=== PATIENT | female | born 1990 | race Caucasian/White ===

== ENCOUNTER → 2021-02-01 | Outpatient (CLI) | payer OTHER ==
[2021-02-01 13:53] LABS: BASO # 0.1 10^3/uL (0.0-0.2); BASO % 0.4 % (0.0-1.0); EOS # 0.1 10^3/uL (0.0-0.5); EOS % 0.6 % (0.0-3.0); HEMOGLOBIN 13.1 g/dl (12.0-15.5); LYMPH # 2.1 10^3/uL (1.5-5.0); LYMPH % 14.3 % (24.0-44.0); MEAN CORPUSCULAR HEMOGLOBIN 30.9 pg (27.0-33.0); MEAN CORPUSCULAR HGB CONC 33.6 g/dl (32.0-36.5); MONO # 0.5 10^3/uL (0.0-0.8); MONO % 3.8 % (2.0-8.0); NEUTROPHILS # 11.5 10^3/uL (1.5-8.5); NEUTROPHILS % 80.5 % (36.0-66.0); PLATELET COUNT, AUTOMATED 297 10^3/uL (150-450); RED BLOOD COUNT 4.24 10^6/uL (4.00-5.40); WHITE BLOOD COUNT 14.3 10^3/uL (4.0-10.0)
[2021-02-01 13:55] LABS: APPEARANCE, URINE HAZY (CLEAR); BACTERIA, URINE AUTO NEGATIVE (NEGATIVE); BILIRUBIN, URINE AUTO NEGATIVE (NEGATIVE); BLOOD, URINE BLOOD 1+ (NEGATIVE); COLOR, URINE YELLOW (YELLOW); GLUCOSE, URINE (UA) AUTO NEGATIVE (NEGATIVE); KETONE, URINE AUTO NEGATIVE (NEGATIVE); LEUKOCYTE ESTERASE, URINE AUTO 3+ (NEGATIVE); MUCUS, URINE SMALL (NEGATIVE); NITRITE, URINE AUTO NEGATIVE (NEGATIVE); PROTEIN, URINE AUTO 2+ mg/dL (NEGATIVE); RBC, URINE AUTO 17 /HPF (0-3); SPECIFIC GRAVITY URINE AUTO 1.015 (1.002-1.035); SQUAMOUS EPITHELIAL CELL UR AU 5 /HPF (0-6); UROBILINOGEN, URINE AUTO 0.2 mg/dL (0.0-2.0); WBC, URINE AUTO 42 /HPF (0-3)
[2021-02-01 14:19] LABS: ALT/SGPT 30 U/L (12-78); BILIRUBIN,TOTAL 0.2 MG/DL (0.2-1.0); BLOOD UREA NITROGEN 16 MG/DL (7-18); CALCIUM LEVEL 8.9 MG/DL (8.5-10.1); CARBON DIOXIDE LEVEL 26 MEQ/L (21-32); CHLORIDE LEVEL 106 MEQ/L (98-107); CREATININE FOR GFR 0.68 MG/DL (0.55-1.30); GLOMERULAR FILTRATION RATE > 60.0 (>60); GLUCOSE, FASTING 93 MG/DL (70-100); POTASSIUM SERUM 4.3 MEQ/L (3.5-5.1); SODIUM LEVEL 138 MEQ/L (136-145); TOTAL PROTEIN 6.8 GM/DL (6.4-8.2)
[2021-02-01 14:41] LABS: HEPATITIS B SURFACE ANTIGEN NEGATIVE (NEGATIVE)
[2021-02-01 15:08] LABS: HEPATITIS B CORE ANTIBODY IGM NEGATIVE (NEGATIVE)
[2021-02-01 15:11] LABS: HEPATITIS A ANTIBODY IGM NEGATIVE (NEGATIVE)
[2021-02-01 15:14] LABS: HEPATITIS C VIRUS ABY INDEX > 11.0 INDEX (<0.8)
== END ==
LOC: M LAB 13:20
PROVIDERS: ATTEND Physician Assistant Medical
DX: Z02.2 Encounter for examination for admission to residential institution (principal)

== ENCOUNTER → 2021-02-10 | Outpatient (CLI) | payer OTHER ==
[2021-02-10 15:09] LABS: HEPATITIS B SURFACE ANTIBODY POSITIVE (POSITIVE); HEPATITIS B SURFACE ANTIGEN NEGATIVE (NEGATIVE)
[2021-02-15 14:09] LABS: HEPATITIS A IgG TOTAL Positive (Negative); HEPATITIS C QUANTITATION HCV Not Detected IU/mL (.)
== END ==
LOC: M PLALAB 09:17
PROVIDERS: ATTEND Physician Assistant Medical
DX: B15.9 Hepatitis A without hepatic coma (principal); B16.9 Acute hepatitis B without delta-agent and without hepatic coma; B18.2 Chronic viral hepatitis C

== ENCOUNTER 2021-03-18 12:28 | Emergency (ER) | payer OTHER ==
[~2021-03-18] VITALS: Ht 144.8 cm; Wt 115.7 kg
[2021-03-18 12:29] VITALS: BP 97/57
[2021-03-18] MEDS ORDERED: BUPR1FIL6 SL (15:35)
[2021-03-18 16:29] LABS: RSV AMPLIFICATION NEGATIVE (NEGATIVE)
[2021-03-18] MEDS ORDERED: CEFD1CAP8 PO (16:45)
== END 2021-03-18 17:00 | disposition home or self-care (01) ==
LOC: M ED 12:28
DX: J06.9 Acute upper respiratory infection, unspecified (principal); Z79.899 Other long term (current) drug therapy; Z88.0 Allergy status to penicillin

== ENCOUNTER 2021-03-23 20:08 | Inpatient (IN) | payer OTHER ==
[~2021-03-23] VITALS: Ht 144.8 cm; Wt 115.0 kg
[~2021-03-23 20:08] MED LIST: BUPR1FIL6 SL; CEFD1CAP8 PO
--- OUTSIDE RECORDS SUMMARY | 2021-03-23 20:14 | CCD | Continuity of Care Document ---
Author Author Jasmin HAMPTON Organization Unknown Address [address] [facility] [address] [place] [address] Phone [phone] Care Team Providers Care Extension Specialist Name Role Phone DANIAL HAMPTON AUTM [phone] Social History Type Date Description Comments Sex Unknown Results Test Acquired Date Facility Test Result H/L Range Note CBC With Differential 02/01/2021 [facility] [address] [place] [address] [phone] White Blood Count 14.3 10 High 4.0-10.0 Red Blood Count 4.24 10 Normal 4.00-5.40 Hemoglobin 13.1 g/dL Normal 12.0-15.5 Hematocrit 39.0 % Normal 36.0-47.0 Mean Corpuscular Volume 92.0 fl Normal 80.0-96.0 Mean Corpuscular Hemoglobin 30.9 pg Normal 27.0-33.0 Mean Corpuscular HGB Conc 33.6 g/dL Normal 32.0-36.5 Red Cell Distribution Width 13.0 % Normal 11.5-14.5 Platelet Count, Automated 297 10 Normal 150-450 Neutrophils % 80.5 % High 36.0-66.0 Lymph % 14.3 % Low 24.0-44.0 [place] % 3.8 % Normal 2.0-8.0 Eos % 0.6 % Normal 0.0-3.0 Baso % 0.4 % Normal 0.0-1.0 Immature Granulocyte % 0.4 % Normal 0-3.0 Nucleated Red Blood Cell % 0.0 % Normal 0-0 Neutrophils # 11.5 10 High 1.5-8.5 Lymph # 2.1 10 Normal 1.5-5.0 [place] # 0.5 10 Normal 0.0-0.8 Eos # 0.1 10 Normal 0.0-0.5 Baso # 0.1 10 Normal 0.0-0.2 Ua Routine 02/01/[address] [id number] [phone] Appearance, Urine HAZY Normal Clear Color, Urine YELLOW Normal Yellow PH,Urine 6.0 units Normal 5.0-9.0 Specific [place] Urine Auto 1.015 Normal 1.002-1.035 Protein, Urine Auto 2+ mg/dL High Negative Glucose, Urine (Ua) Auto NEGATIVE mg/dL Normal Negative Ketone, Urine Auto NEGATIVE mg/dL Normal Negative Urobilinogen, Urine Auto 0.2 mg/dL Normal 0.0-2.0 Bilirubin, Urine Auto NEGATIVE Normal Negative Nitrite, Urine Auto NEGATIVE Normal Negative Leukocyte Esterase, Urine Auto 3+ High Negative Blood, Urine Blood 1+ High Negative WBC, Urine Auto 42 /HPF High 0-3 RBC, Urine Auto 17 /HPF High 0-3 Bacteria, Urine Auto NEGATIVE Normal Negative Squamous Epithelial Cell Ur AU 5 /HPF Normal 0-6 Mucus, Urine SMALL Normal Negative Hyaline Cast, Urine Auto 0 /LPF Normal 0-1 Comprehensive Metabolic Profil 02/01/[address] [id number] [phone] Glucose, Fasting 93 mg/dL Normal 70-100 Blood Urea Nitrogen 16 mg/dL Normal 7-18 Creatinine For GFR 0.68 mg/dL Normal 0.55-1.30 Glomerular Filtration Rate > 60.0 Normal >60 1 Sodium Level 138 mEq/L Normal 136-145 Potassium Serum 4.3 mEq/L Normal 3.5-5.1 Chloride Level 106 mEq/L Normal 98-107 Carbon Dioxide Level 26 mEq/L Normal 21-32 Anion Gap 6 mEq/L Low 8-16 Calcium Level 8.9 mg/dL Normal 8.5-10.1 Ast/Sgot 16 U/L Normal 7-37 Alt/SGPT 30 U/L Normal 12-78 Alkaline Phosphatase 92 U/L Normal 45-117 Bilirubin,Total 0.2 mg/dL Normal 0.2-1.0 Total Protein 6.8 GM/DL Normal 6.4-8.2 Albumin 3.0 GM/DL Low 3.2-5.2 Albumin/Globulin Ratio 0.8 Low 1.2-2.2 Hepatitis Profile 02/01/2021 [facility] [address] [place] [address] [phone] Hepatitis C Virus Vandana Index > 11.0 INDEX High <0 .8 2 Hepatitis B Surface Antigen NEGATIVE Normal Negative Hepatitis B Core Antibody Igm NEGATIVE Normal Negative Hepatitis A Antibody Igm NEGATIVE Normal Negative Laboratory test finding 02/01/2021 [facility] [address] [place] [address] [phone] HCV Rna Marti Qualitative Negative Normal Negative 3 1 Units are mL/min/1.73 m2 Chronic Kidney Disease Staging per NKF: Stage I & II GFR >=60 Normal to Mildly Decreased Stage III GFR 30-59 Moderately Decreased Stage IV GFR 15-29 Severely Decreased Stage V GFR <15 Very Little GFR Left ESRD GFR <15 on EXPERIMENTAL OUTBOARD MOTORS MECHANIC 2 This screening test for Hepa titis C Virus was above the 1.0 cutoff index value and will be sent to reference lab Laboratory [facility], [address] [place] [address]. [place]. [address] for Hep C RNA MARTI testing to confirm or exclude active Hepatitis C Virus infection. Screening test Positive samples with high index values (>11.0) usually (95%) confirm Positive, but <5 of every 100 samples with this result might be a false positive and Hep C RNA MARTI testing will aid in patient management. 3 Negative: HCV RNA Not Detect ed Performed at: [address] [id number] Physical Chemistry Teacher: Blayne Funez MD, Phone: [phone] Procedures Date Code Description Status 01/30/2021 33642 Office/Outpatient New [facility] 30 -44 Minutes Completed Encounters Type Date Location Provider Dx Diagnosis Office Visit 01/30/2021 10:30a [facility] JUAN CARLOS Almazan F19.20 Other psychoactive substance dependence, uncomplicated M51.36 Other intervertebral disc de generation, lumbar region G47.00 Insomnia, unspecified Assessments Date Code Description Provider 01/30/2021 F19.20 Other psychoactive substance dep endence, uncomplicated JUAN CARLOS [place] 01/30/2021 M51.36 Other intervertebral disc degene ration, lumbar region JUAN CARLOS [place] 01/30/2021 G47.00 Insomnia, unspecified JUAN CARLOS [place]
--- OUTSIDE RECORDS SUMMARY | 2021-03-23 20:14 | CCD | Continuity of Care Document ---
Author Author Jasmin HAMPTON Organization Unknown Address [address] [facility] [address] [place] [address] Phone [phone] Care Team Providers Care Tripe Washer Name Role Phone DANIAL HAMPTON AUTM [phone] Social History Type Date Description Comments Sex Unknown Results Test Acquired Date Facility Test Result H/L Range Note CBC With Differential 02/01/2021 [facility] [address] [place] [address] [phone] White Blood Count 14.3 10 High 4.0-10.0 [...] 36.0-66.0 Lymph % 14.3 % Low 24.0-44.0 [place] % 3.8 % Normal 2.0-8.0 Eos % 0.6 % Normal 0.0-3.0 Baso % 0.4 % Normal 0.0-1.0 Immature Granulocyte % 0.4 % Normal 0-3.0 Nucleated Red Blood Cell % 0.0 % Normal 0-0 Neutrophils # 11.5 10 High 1.5-8.5 Lymph # 2.1 10 Normal 1.5-5.0 [place] # 0.5 10 Normal 0.0-0.8 Eos # 0.1 10 Normal 0.0-0.5 Baso # 0.1 10 Normal 0.0-0.2 Ua Routine 02/01/[address] [id number] [phone] Appearance, Urine HAZY Normal Clear Color, Urine YELLOW Normal Yellow PH,Urine 6.0 units Normal 5.0-9.0 Specific [place] Urine Auto 1.015 Normal 1.002-1.035 Protein, Urine [...] /LPF Normal 0-1 Comprehensive Metabolic Profil 02/01/[address] 0707160 [phone] Glucose, Fasting 93 mg/dL Normal 70-100 Blood [...] Ratio 0.8 Low 1.2-2.2 Hepatitis Profile 02/01/2021 [facility] [address] [place] [address] [phone] Hepatitis C Virus Vandana Index > 11.0 INDEX High <0 .8 2 Hepatitis B Surface Antigen NEGATIVE Normal Negative Hepatitis B Core Antibody Igm NEGATIVE Normal Negative Hepatitis A Antibody Igm NEGATIVE Normal Negative Laboratory test finding 02/01/2021 [facility] [address] [place] [address] [phone] HCV Rna Marti Qualitative Negative Normal Negative 3 1 Units are mL/min/1.73 m2 Chronic Kidney Disease Staging per NKF: Stage I & II GFR >=60 Normal to Mildly Decreased Stage III GFR 30-59 Moderately Decreased Stage IV GFR 15-29 Severely Decreased Stage V GFR <15 Very Little GFR Left ESRD GFR <15 on DEPLOYMENT ENGINEER 2 This screening test for Hepa titis C Virus was above the 1.0 cutoff index value and will be sent to reference lab Laboratory [facility], [address] [place] [address]. [place]. [address] for Hep C RNA MARTI testing to confirm or exclude active Hepatitis C Virus infection. Screening test Positive samples with high index values (>11.0) usually (95%) confirm Positive, but <5 of every 100 samples with this result might be a false positive and Hep C RNA MARTI testing will aid in patient management. 3 Negative: HCV RNA Not Detect ed Performed at: [address] [id number] Sap Plant Maintenance Consultant: Blayne Funez MD, Phone: [phone] Procedures Date Code Description Status 02/02/2021 82911 Office/Outpatient Established Lo w MDM 20-29 Min Completed 01/30/2021 83994 Office/Outpatient New Low MDM 30 -44 Minutes Completed Encounters Type Date Location Provider Dx Diagnosis Office Visit 02/02/2021 12:30p [facility] Ed JUAN CARLOS Almazan M75.52 Bursitis of left shoulder J30.9 Allergic rhinitis, unspecifi ed G47.00 Insomnia, unspecified Office Visit 01/30/2021 10:30a [facility] Ed JUAN CARLOS Almazan F19.20 Other psychoactive substance dependence, uncomplicated M51.36 Other intervertebral disc de generation, lumbar region G47.00 Insomnia, unspecified Assessments Date Code Description Provider 02/02/2021 M75.52 Bursitis of left shoulder JUAN CARLOS Hernandez 02/02/2021 J30.9 Allergic rhinitis, unspecified F JUAN CARLOS Sanderson 02/02/2021 G47.00 Insomnia, unspecified JUAN CARLOS [place] 01/30/2021 F19.20 Other psychoactive substance dep endence, uncomplicated JUAN CARLOS [place] 01/30/2021 M51.36 Other intervertebral disc degene ration, lumbar region JUAN CARLOS [place] 01/30/2021 G47.00 Insomnia, unspecified JUAN CARLOS [place]
--- OUTSIDE RECORDS SUMMARY | 2021-03-23 20:14 | CCD | Continuity of Care Document ---
Author Author Jasmin MEDINA Organization Unknown Address [address] [facility] [address] [place] [address] Phone [phone] Care Team Providers Care Customer Service Cashier Name Role Phone SARABJIT MEDINA AUTM [phone] Social History Type Date Description Comments Sex Unknown Results Test Acquired Date Facility Test Result H/L Range Note Laboratory test finding 02/10/2021 [facility] [address] [place], [place] [id number] [phone] Hepatitis B Surface Antigen NEGATIVE Normal Nega tive Hepatitis B Surface Antibody POSITIVE Normal Positive Hepatitis C Virus Genotype 02/10/2021 [facility] [address] [place], [place] 9583047 [phone] Hepatitis C Virus Genotype (SEE NOTE) Normal . 1 Comment For Hepc Genotype (SEE NOTE) Normal . 2 Hepatitis C Quant By PCR 02/10/2021 [facility] [address] [place], [place] 6887994 [phone] Hepatitis C Quantitation HCV Not Detected IU/mL Normal . 3 Hepatitis C log10 TNP Normal . Test Information: (SEE NOTE) Normal . 4 Laboratory test finding 02/10/2021 [facility] [address] [place] [address] [phone] Hepatitis A IgG Total Positive Abnormal Negative 5 Hepatitis C Fibrosure [id number] 02/10/2021 [facility] [address] [place], [place] 0044259 [phone] Fibrosis Score 0.02 Normal 0.00-0.21 Fibrosis Stage (SEE NOTE) Normal . 6 Necroinflam Score 0.15 Normal 0.00-0.17 Necroinflamm Grade A0-No activity Normal . Alpha 2-Macroglobulin 181 mg/dL Normal 110-276 Haptoglobin 149 mg/dL Normal 33-278 Apolipoprotein A-1 163 mg/dL Normal 116-209 Total Bilirubin <0.1 mg/dL Normal 0.0-1.2 GGT 33 IU/L Normal 0-60 Alt 40 IU/L Normal 0-40 Interpretation (SEE NOTE) Normal . 7 Fibrosis Scoring (SEE NOTE) Normal . 8 Necroinflam Scoring (SEE NOTE) Normal . 9 Limitations (SEE NOTE) Normal . 10 Comment : (SEE NOTE) Normal . 11 CBC With Differential 02/01/[address] [address] [phone] White Blood Count 14.3 10 High 4.0-10.0 [...] 36.0-66.0 Lymph % 14.3 % Low 24.0-44.0 [place] % 3.8 % Normal 2.0-8.0 Eos % 0.6 % Normal 0.0-3.0 Baso % 0.4 % Normal 0.0-1.0 Immature Granulocyte % 0.4 % Normal 0-3.0 Nucleated Red Blood Cell % 0.0 % Normal 0-0 Neutrophils # 11.5 10 High 1.5-8.5 Lymph # 2.1 10 Normal 1.5-5.0 [place] # 0.5 10 Normal 0.0-0.8 Eos # 0.1 10 Normal 0.0-0.5 Baso # 0.1 10 Normal 0.0-0.2 Ua Routine 02/01/[address] [address] [phone] Appearance, Urine HAZY Normal Clear Color, Urine YELLOW Normal Yellow PH,Urine 6.0 units Normal 5.0-9.0 Specific [place] Urine Auto 1.015 Normal 1.002-1.035 Protein, Urine [...] /LPF Normal 0-1 Comprehensive Metabolic Profil 02/01/[address] [address] [phone] Glucose, Fasting 93 mg/dL Normal 70-100 Blood Urea Nitrogen 16 mg/dL Normal 7-18 Creatinine For GFR 0.68 mg/dL Normal 0.55-1.30 Glomerular Filtration Rate > 60.0 Normal >60 1 2 Sodium Level 138 mEq/L Normal 136-145 Potassium [...] Ratio 0.8 Low 1.2-2.2 Hepatitis Profile 02/01/[address] [address] [phone] Hepatitis C Virus Vandana Index > 11.0 INDEX High <0 .8 13 Hepatitis B Surface Antigen NEGATIVE Normal Negative Hepatitis B Core Antibody Igm NEGATIVE Normal Negative Hepatitis A Antibody Igm NEGATIVE Normal Negative Laboratory test finding 02/01/2021 [place] [address] [place] [address] [phone] HCV Rna Sandra Qualitative Negative Normal Negative 14 1 Specimen has insufficient he patitis C virus RNA to obtain genotyping results. This genotyping assay should only be used for known HCV positive patients with HCV RNA levels above 1000 IU/mL. 2 . This test was developed and its performance characteristics determined by [employer]. It has not been cleared or approved by the U.S. Food and Drug Administration. . The FDA has determined that such clearance or approval is not necessary. This test is used for clinical purposes. It should not be regarded as investigational or for research. 3 HCV Not Detected 4 . The quantitative range of this assay is 15 IU/mL to 100 million IU/mL. 5 Performed at: [address] [id number] Ornamenter Hand: Blayne Funez MD, Phone: [phone] Performed at: [address] [id number] Ornamenter Hand: Bel Acuna MD, Phone: [phone] 6 F0 - No fibrosis 7 . Quantitative results of 6 biochemical tests are analyzed using a computational algorithm to provide a quantitative surrogate marker (0.0-1.0) for liver fibrosis (METAVIR F0- F4) and for necroinflammatory activity (METAVIR A0-A3). 8 . <=0.21 = Stage F0 - No fibrosis 0.21 - 0.27 = Stage F0 - F1 0.27 - 0.31 = Stage F1 - Portal fibrosis 0.31 - 0.48 = Stage F1 - F2 0.48 - 0.58 = Stage F2 - Bridging fibros is with few septa 0.58 - 0.72 = Stage F3 - Bridging fibros is with many septa 0.72 - 0.74 = Stage F3 - F4 >0.74 = Stage F4 - Cirrhosis 9 . <0.17 = Grade A0 - No Activity 0.17 - 0.29 = Grade A0 - A1 0.29 - 0.36 = Grade A1 - Minimal activit y 0.36 - 0.52 = Grade A1 - A2 0.52 - 0.60 = Grade A2 - Moderate activi ty 0.60 - 0.62 = Grade A2 - A3 >0.62 = Grade A3 - Severe activity 10 The negative predictive valu e of a Fibrotest score <0.31 (absence of clinically significant fibro sis) was 85% when compared to liver biopsy in 1,270 HCV infected patients with a 38% prevalence of significant liver fibrosis (F2, 3 or 4). The positive predictive value of a Fibro-test score >0.48 (F2, 3, 4) was 61% in that same patient cohort. HCV FibroSURE is not recommended in patients with Gilbert Disease, acute hemolysis (e.g. HCV ribavirin therapy mediated hemolysis) acute hepa-titis of the liver, extra- hepatic cholestasis, transplant patients, and/or renal insufficiency patients. Any of these clinical situations may lead to inaccurate quantitative predictions of fibrosis and necroinflammatory activity in the liver. 11 . This test was developed and its performance characteristics determined by [employer]. It has not been cleared or approved by the Food and Drug Administration. The FDA has determined that such clearance or approval is not necessary. . For questions regarding this report please contact customer service at [phone]. 12 Units are mL/min/1.73 m2 Chronic Kidney Disease Staging per NKF: Stage I & II GFR >=60 Normal to Mildly Decreased Stage III GFR 30-59 Moderately Decreased Stage IV GFR 15-29 Severely Decreased Stage V GFR <15 Very Little GFR Left ESRD GFR <15 on GEODETIC ENGINEER 13 This screening test for Hepa titis C Virus was above the 1.0 cutoff index value and will be sent to reference lab Laboratory [facility], [address] [place] [address]. [place], [place]. [address] for Hep C RNA SANDRA testing to confirm or exclude active Hepatitis C Virus infection. Screening test Positive samples with high index values (>11.0) usually (95%) confirm Positive, but <5 of every 100 samples with this result might be a false positive and Hep C RNA SANDRA testing will aid in patient management. 14 Negative: HCV RNA Not Detect ed Performed at: [address] [id number] Ornamenter Hand: Blayne Funez MD, Phone: [phone] Procedures Date Code Description Status 02/15/2021 91423 Office/Outpatient Established Lo w MDM 20-29 Min Completed 02/02/2021 62684 Office/Outpatient Established Lo w MDM 20-29 Min Completed 01/30/2021 81938 Office/Outpatient [facility] 30 -44 Minutes Completed Encounters Type Date Location Provider Dx Diagnosis Office Visit 02/15/2021 11:30a [facility] JUAN CARLOS Almazan K92.1 [place] G47.9 Sleep disorder, unspecified J30.9 Allergic rhinitis, unspecifi ed Office Visit 02/02/2021 12:30p [facility] JUAN CARLOS Almazan M75.52 Bursitis of left shoulder J30.9 Allergic rhinitis, unspecifi ed G47.00 Insomnia, unspecified Office Visit 01/30/2021 10:30a [facility] JUAN CARLOS Almazan F19.20 Other psychoactive substance dependence, uncomplicated M51.36 Other intervertebral disc de generation, lumbar region G47.00 Insomnia, unspecified Assessments Date Code Description Provider 02/15/2021 K92.1 [place] Sarabjit Iona Kaleb mayer, JUAN CARLOS 02/15/2021 G47.9 Sleep disorder, unspecified Efe christina Iona [place], [place] 02/15/2021 J30.9 Allergic rhinitis, unspecified F redericsadaf [place], [place] 02/02/2021 M75.52 Bursitis of left shoulder Albertoder leila Medina, JUAN CARLOS 02/02/2021 J30.9 Allergic rhinitis, unspecified F redericsadaf [place], [place] 02/02/2021 G47.00 Insomnia, unspecified Sarabjit Medina, JUAN CARLOS 01/30/2021 F19.20 Other psychoactive substance dep endence, uncomplicated Sarabjit [place], [place] 01/30/2021 M51.36 Other intervertebral disc degene ration, lumbar region Sarabjit [place], [place] 01/30/2021 G47.00 Insomnia, unspecified JUAN CARLOS [place] Referrals Refer to Reason for Referral Status Appt Date Brant Del Valle M.D. PATIENT WITH C/O BLOOD IN STOOL. PLEASE EVAL AND TREAT. Sent The [address], [address] [place] [address] [phone] [facility] PATIENT WITH DIFFICULT Y SLEEPING. WAKES GASPING FOR AIR. CHEST XRAY ORDERED. PLEASE EVAL , TREAT, SLEEP STUDY. Sent [address] [place] [address] [phone]
--- OUTSIDE RECORDS SUMMARY | 2021-03-23 20:14 | CCD ---
Author Author Jasmin Farley Organization [employer] Address [address] [place] [address] Care Team Providers Care Asbestos Siding Installer Name Role Phone Ambreen Farley Unavailable JohannykevinDahiana Unavailable Min Hernandez Unavailable Monika White Unavailable Functional Status No Results Mental Status No Results Assessments SatMar 16 19:25:31 EDT 2020: No Assessment Information Health Concerns No Known Health Concerns Allergies No Known Allergy Information Encounters Program Name Primary Diagnosis Admission Date/Time Discharge Date/Time BH - Short Term Crisis Respite SatNovember 02 16:10:00 EDT 2020November 06 12:00:00 EDT 2020 BH - Short Term Crisis Respite SatJun 08 00:00:00 EST 2019Jun 15 10:00:00 EST 2020 BH - Short Term Crisis Respite SatJul 29 13:30:00 EST 2020Aug 08 12:00:00 EST 2020 Intensive Support SatJun 09 10:00:00 EST 2019 BH - Short Term Crisis Respite SatAug 24 11:00:00 EDT 2020Sep 05 12:00:00 EDT 2020 BH - Short Term Crisis Respite SatApr 01 13:30:00 EDT 2019Apr 08 12:00:00 EDT 2019 BH - Short Term Crisis Respite SatDec 21 14:15:00 EDT 2020Dec 23 14:00:00 EDT 2020 Immunizations No Known Immunizations Lab Results No Known Laboratory Results Medical Equipment No Known Medical Equipment Medications No Known Medication Information Treatment Plan Goals 1-Jasmin is struggling with feel ings of stress from childhood trauma.; Established from Crisis Initial Service Plan of 06/08/2020 1-Jasmin is struggling with symp toms of stress from childhood trauma.; Established from Crisis Initial Service Plan of 06/08/2020 Problems Active Concerns* Bipolar I disorder, most recent episode (or current) unspecified* Code: [id number] * Start Date: SatApr 01 09:00:00 EDT 2019 * Text: * Mental Health and Stress Management* Code: * Start Date: SatNovember 02 00:00:00 EDT 2020 * Text: * Mental Health and Stress Management* Code: * Start Date: SatDec 21 00:00:00 EDT 2020 * Text: * Posttraumatic stress disorder* Code: [id number] * Start Date: SatApr 01 09:30:00 EDT 2019 * Text: * Peer Support Services (1:1 Peer Support)* Code: * Start Date: SatDec 21 00:00:00 EDT 2020 * Text: Resolved Concerns* Problem Peer Support Services (1:1 Peer Support)* Code: * Start Date: SatNovember 02 00:00:00 EDT 2020 * End Date: SatNov 16 00:00:00 EDT 2020 * Problem Mental Health and Stress Management* Code: * Start Date: SatNovember 02 00:00:00 EDT 2020 * End Date: SatNov 16 00:00:00 EDT 2020 * Problem Peer Support Services (1:1 Peer Support)* Code: * Start Date: SatJun 08 00:00:00 EST 2019 * End Date: SatJun 15 00:00:00 EST 2020 * Problem Peer Support Services (1:1 Peer Support)* Code: * Start Date: SatAug 24 00:00:00 EDT 2020 * End Date: SatSep 03 00:00:00 EDT 2020 * Problem Peer Support Services (1:1 Peer Support)* Code: * Start Date: SatAug 24 00:00:00 EDT 2020 * End Date: SatSep 03 00:00:00 EDT 2020 * Problem Peer Support Services (1:1 Peer Support)* Code: * Start Date: SatAug 24 00:00:00 EDT 2020 * End Date: SatSep 03 00:00:00 EDT 2020 * Problem Peer Support Services (1:1 Peer Support)* Code: * Start Date: SatAug 24 00:00:00 EDT 2020 * End Date: SatAug 24 00:00:00 EDT 2020 * Problem Mental Health and Stress Management* Code: * Start Date: SatJun 08 00:00:00 EST 2019 * End Date: SatJun 15 00:00:00 EST 2020 * Problem Mental Health and Stress Management* Code: * Start Date: SatAug 24 00:00:00 EDT 2020 * End Date: SatSep 03 00:00:00 EDT 2020 * Problem Peer Support Services (1:1 Peer Support)* Code: * Start Date: SatAug 24 00:00:00 EDT 2020 * End Date: SatSep 03 00:00:00 EDT 2020 * Problem Peer Support Services (1:1 Peer Support)* Code: * Start Date: SatAug 24 00:00:00 EDT 2020 * End Date: SatSep 03 00:00:00 EDT 2020 Procedures No Known Procedures Social History Social History Observation Description Date Sex Female SatJan 05 00:00:00 EDT 1987 Vital Signs No Known Vitals
--- OUTSIDE RECORDS SUMMARY | 2021-03-23 20:14 | CCD | Continuity of Care Document ---
Author Author Jasmin MEDINA Organization Unknown Address [address] [facility] [address] [place] [address] Phone [phone] Care Team Providers Care Special Education Teachers Name Role Phone SARABJIT MEDINA AUTM [phone] Social History Type Date Description Comments Sex Unknown Results Test Acquired Date Facility Test Result H/L Range Note Laboratory test finding 02/10/2021 [facility] [address] [place], [place] [address] [phone] Hepatitis B Surface Antigen NEGATIVE Normal Nega tive Hepatitis B Surface Antibody POSITIVE Normal Positive Hepatitis C Virus Genotype 02/10/2021 [facility] [address] [place], [place] [address] [phone] Hepatitis C Virus Genotype (SEE NOTE) Normal . 1 Comment For Hepc Genotype (SEE NOTE) Normal . 2 Hepatitis C Quant By PCR 02/10/2021 [facility] [address] [place], [place] [id number] [phone] Hepatitis C Quantitation HCV Not Detected IU/mL Normal . 3 Hepatitis C log10 TNP Normal . Test Information: (SEE NOTE) Normal . 4 Laboratory test finding 02/10/2021 [facility] [address] [place] [address] [phone] Hepatitis A IgG Total Positive Abnormal Negative 5 Hepatitis C Fibrosure [id number] 02/10/2021 [facility] [address] [place], [place] [id number] [phone] Fibrosis Score 0.02 Normal 0.00-0.21 Fibrosis Stage [...] Normal . 11 CBC With Differential 02/01/[address] [address] [phone] White Blood Count 14.3 10 High 4.0-10.0 [...] 36.0-66.0 Lymph % 14.3 % Low 24.0-44.0 Aiken % 3.8 % Normal 2.0-8.0 Eos % 0.6 % Normal 0.0-3.0 Baso % 0.4 % Normal 0.0-1.0 Immature Granulocyte % 0.4 % Normal 0-3.0 Nucleated Red Blood Cell % 0.0 % Normal 0-0 Neutrophils # 11.5 10 High 1.5-8.5 Lymph # 2.1 10 Normal 1.5-5.0 Aiken # 0.5 10 Normal 0.0-0.8 Eos # 0.1 10 Normal 0.0-0.5 Baso # 0.1 10 Normal 0.0-0.2 Ua Routine 02/01/[address] [address] [phone] Appearance, Urine HAZY Normal Clear Color, Urine YELLOW Normal Yellow PH,Urine 6.0 units Normal 5.0-9.0 Specific [place] Urine Auto 1.015 Normal 1.002-1.035 Protein, Urine [...] /LPF Normal 0-1 Comprehensive Metabolic Profil 02/01/[address] [address] [phone] Glucose, Fasting 93 mg/dL Normal 70-100 Blood [...] Ratio 0.8 Low 1.2-2.2 Hepatitis Profile 02/01/[address] [address] [phone] Hepatitis C Virus Vandana Index > 11.0 INDEX High <0 .8 13 Hepatitis B Surface Antigen NEGATIVE Normal Negative Hepatitis B Core Antibody Igm NEGATIVE Normal Negative Hepatitis A Antibody Igm NEGATIVE Normal Negative Laboratory test finding 02/01/2021 [address] [place] [address] [phone] HCV Rna Sandra Qualitative Negative Normal Negative 14 1 Specimen has insufficient he patitis C virus RNA to obtain genotyping results. This genotyping assay should only be used for known HCV positive patients with HCV RNA levels above 1000 IU/mL. 2 . This test was developed and its performance characteristics determined by [employer]. It has not been cleared or approved [...] to 100 million IU/mL. 5 Performed at: [address] [id number] Clinical Research Tech: Blayne Funez MD, Phone: [phone] Performed at: [address] [id number] Clinical Research Tech: Bel Acuna MD, Phone: [phone] 6 F0 - No fibrosis 7 . [...] developed and its performance characteristics determined by [employer]. It has not been cleared or approved by the Food and Drug Administration. The FDA has determined that such clearance or approval is not necessary. . For questions regarding this report please contact customer service at [phone]. 12 Units are mL/min/1.73 m2 Chronic Kidney Disease Staging per NKF: Stage I & II GFR >=60 Normal to Mildly Decreased Stage III GFR 30-59 Moderately Decreased Stage IV GFR 15-29 Severely Decreased Stage V GFR <15 Very Little GFR Left ESRD GFR <15 on SUPERVISOR CD AREA 13 This screening test for Hepa titis C Virus was above the 1.0 cutoff index value and will be sent to reference lab Laboratory [facility], [address] [place] [address]. [place] [address] for Hep C RNA SANDRA testing to confirm or exclude active Hepatitis C Virus infection. Screening test Positive samples with high index values (>11.0) usually (95%) confirm Positive, but <5 of every 100 samples with this result might be a false positive and Hep C RNA SANDRA testing will aid in patient management. 14 Negative: HCV RNA Not Detect ed Performed at: [address] [id number] Clinical Research Tech: Blayne Funez MD, Phone: [phone] Procedures Date Code Description Status 03/08/2021 49200 Office/Outpatient Established Lo w MDM 20-29 Min Completed 02/28/2021 99959 Office/Outpatient Established Lo w MDM 20-29 Min Completed 02/15/2021 42541 Office/Outpatient Established Lo w MDM 20-29 Min Completed 02/02/2021 69454 Office/Outpatient Established Lo w MDM 20-29 Min Completed 01/30/2021 81598 Office/Outpatient New Low MDM 30 -44 Minutes Completed Encounters Type Date Location Provider Dx Diagnosis Office Visit 03/08/2021 12:00p [facility] JUAN CARLOS Almazan J01.10 Acute frontal sinusitis, uns pecified Office Visit 02/28/2021 12:00p [facility] JUAN CARLOS Almazan J01.10 Acute frontal sinusitis, uns pecified Office Visit 02/15/2021 11:30a [facility] JUAN CARLOS Almazan K92.1 [place] G47.9 Sleep disorder, unspecified J30.9 Allergic rhinitis, unspecifi ed Office Visit 02/02/2021 12:30p [facility] JUAN CARLOS Almazan M75.52 Bursitis of left shoulder J30.9 Allergic rhinitis, unspecifi ed G47.00 Insomnia, unspecified Office Visit 01/30/2021 10:30a [facility] JUAN CARLOS Almazan F19.20 Other psychoactive substance dependence, uncomplicated M51.36 Other intervertebral disc de generation, lumbar region G47.00 Insomnia, unspecified Assessments Date Code Description Provider 03/08/2021 J01.10 Acute frontal sinusitis, unspeci fied Sarabjit Medina, JUAN CARLOS 02/28/2021 J01.10 Acute frontal sinusitis, unspeci fied Sarabjit Medina, JUAN CARLOS 02/15/2021 K92.1 JUAN CARLOS Johnson 02/15/2021 G47.9 Sleep disorder, unspecified Efe Medina, JUAN CARLOS 02/15/2021 J30.9 Allergic rhinitis, unspecified Percy Medina, PA 02/02/2021 M75.52 Bursitis of left shoulder Yennifer Medina, JUAN CARLOS 02/02/2021 J30.9 Allergic rhinitis, unspecified F JUAN [...] IN STOOL. PLEASE EVAL AND TREAT. Sent 05/03/2021 [facility] [address] [facility], [address] [facility] [address] [phone] [facility] PATIENT WITH DIFFICULT Y SLEEPING. WAKES GASPING FOR AIR. CHEST XRAY ORDERED. PLEASE VARSHA TREAT, SLEEP STUDY. Sent [address] [place] [address] [phone]
--- OUTSIDE RECORDS SUMMARY | 2021-03-23 20:14 | CCD ---
Author Author Jasmin Farley Organization [employer] Address [address] [place] [address] Care Team Providers Care Operations Advisor Name Role Phone Ambreen Farley Unavailable JohannykevinDahiana Unavailable Min Hernandez Unavailable Monika White Unavailable Functional Status No Results Mental Status No Results Assessments SatMar 10 03:39:55 EDT 2020: No Assessment Information Health Concerns No Known Health Concerns Allergies No Known Allergy Information Encounters Program Name Primary Diagnosis Admission Date/Time Discharge Date/Time BH - Short Term Crisis Respite SatJul 29 13:30:00 EST 2020Aug 08 12:00:00 EST 2020 BH - Short Term Crisis Respite SatJun 08 00:00:00 EST 2019Jun 15 10:00:00 EST 2020 Intensive Support SatJun 09 10:00:00 EST 2019 BH - Short Term Crisis Respite SatNovember 02 16:10:00 EDT 2020November 06 12:00:00 EDT 2020 BH - Short Term Crisis Respite SatApr 01 13:30:00 EDT 2019Apr 08 12:00:00 EDT 2019 BH - Short Term Crisis Respite SatAug 24 11:00:00 EDT 2020Sep 05 12:00:00 EDT 2020 BH - Short Term Crisis Respite SatDec [...] most recent episode (or current) unspecified* Code: [id number] * Start Date: SatApr 01 09:00:00 EDT 2019 * Text: * Mental Health and Stress Management* Code: * Start Date: SatNovember 02 00:00:00 EDT 2020 * Text: * Mental Health and Stress Management* Code: * Start Date: SatDec 21 00:00:00 EDT 2020 * Text: * Posttraumatic stress disorder* Code: [id number] * Start Date: SatApr 01 09:30:00 EDT [...]
--- OUTSIDE RECORDS SUMMARY | 2021-03-23 20:14 | CCD ---
Author Author Jasmin Farley Organization [employer] Address [address] [place] [address] Care Team Providers Care Time Cycle Operator Name Role Phone Ambreen Farley Unavailable JohannykevinDahiana Unavailable Min Hernandez Unavailable Monika White Unavailable Functional Status No Results Mental Status No Results Assessments SatFeb 20 18:14:44 EDT 2020: No Assessment Information Health Concerns No Known Health Concerns Allergies No Known Allergy Information Encounters Program Name Primary Diagnosis Admission Date/Time Discharge Date/Time BH - Short Term Crisis Respite SatJun 08 00:00:00 EST 2019Jun 15 10:00:00 EST 2020 BH - Short Term Crisis Respite SatApr 01 13:30:00 EDT 2019Apr 08 12:00:00 EDT 2019 BH - Short Term Crisis Respite SatNovember 02 16:10:00 EDT 2020November 06 12:00:00 EDT 2020 Intensive Support SatJun 09 10:00:00 EST 2019 BH - Short Term Crisis Respite SatJul 29 13:30:00 EST 2020Aug 08 12:00:00 EST 2020 BH - Short Term Crisis Respite SatAug [...] most recent episode (or current) unspecified* Code: [id number] * Start Date: SatApr 01 09:00:00 EDT 2019 * Text: * Mental Health and Stress Management* Code: * Start Date: SatNovember 02 00:00:00 EDT 2020 * Text: * Mental Health and Stress Management* Code: * Start Date: SatDec 21 00:00:00 EDT 2020 * Text: * Posttraumatic stress disorder* Code: [id number] * Start Date: SatApr 01 09:30:00 EDT [...]
--- OUTSIDE RECORDS SUMMARY | 2021-03-23 20:14 | CCD | Continuity of Care Document ---
Author Author Jasmin MEDINA Organization Unknown Address [address] [facility] [address] [place] [address] Phone [phone] Care Team Providers Care Asset Liability Analyst Name Role Phone SARABJIT MEDINA AUTM [phone] Social History Type Date Description Comments Sex Unknown Results Test Acquired Date Facility Test Result H/L Range Note Laboratory test finding 02/10/2021 [facility] [address] [place], [place] [address] [phone] Hepatitis B Surface Antigen NEGATIVE Normal Nega tive Hepatitis B Surface Antibody POSITIVE Normal Positive Hepatitis C Virus Genotype 02/10/2021 [facility] [address] [place], [place] [address] [phone] Hepatitis C Virus Genotype (SEE NOTE) Normal . 1 Comment For Hepc Genotype (SEE NOTE) Normal . 2 Hepatitis C Quant By PCR 02/10/2021 [facility] [address] [place], [place] [address] [phone] Hepatitis C Quantitation HCV Not Detected IU/mL Normal . 3 Hepatitis C log10 TNP Normal . Test Information: (SEE NOTE) Normal . 4 Laboratory test finding 02/10/2021 [facility] [address] [place] [address] [phone] Hepatitis A IgG Total Positive Abnormal Negative 5 Hepatitis C Fibrosure [id number] 02/10/2021 [facility] [address] [place], [place] [address] [phone] Fibrosis Score 0.02 Normal 0.00-0.21 Fibrosis Stage [...] Normal . 11 CBC With Differential 02/01/[address] [address] [phone] White Blood Count 14.3 10 High 4.0-10.0 [...] 36.0-66.0 Lymph % 14.3 % Low 24.0-44.0 Jenkins % 3.8 % Normal 2.0-8.0 Eos % 0.6 % Normal 0.0-3.0 Baso % 0.4 % Normal 0.0-1.0 Immature Granulocyte % 0.4 % Normal 0-3.0 Nucleated Red Blood Cell % 0.0 % Normal 0-0 Neutrophils # 11.5 10 High 1.5-8.5 Lymph # 2.1 10 Normal 1.5-5.0 Jenkins # 0.5 10 Normal 0.0-0.8 Eos # 0.1 10 Normal 0.0-0.5 Baso # 0.1 10 Normal 0.0-0.2 Ua Routine 02/01/[address] [address] [phone] Appearance, Urine HAZY Normal Clear Color, Urine YELLOW Normal Yellow PH,Urine 6.0 units Normal 5.0-9.0 Specific [place] Urine Auto 1.015 Normal 1.002-1.035 Protein, Urine [...] /LPF Normal 0-1 Comprehensive Metabolic Profil 02/01/[address] [address] [phone] Glucose, Fasting 93 mg/dL Normal 70-100 Blood [...] Ratio 0.8 Low 1.2-2.2 Hepatitis Profile 02/01/[address] [address] [phone] Hepatitis C Virus Vandana Index > 11.0 INDEX High <0 .8 13 Hepatitis B Surface Antigen NEGATIVE Normal Negative Hepatitis B Core Antibody Igm NEGATIVE Normal Negative Hepatitis A Antibody Igm NEGATIVE Normal Negative Laboratory test finding 02/01/2021 [address] [place] [address] [phone] HCV Rna Sandra Qualitative Negative Normal Negative 14 1 Specimen has insufficient he patitis C virus RNA to obtain genotyping results. This genotyping assay should only be used for known HCV positive patients with HCV RNA levels above 1000 IU/mL. 2 . This test was developed and its performance characteristics determined by [employer]. It has not been cleared or approved [...] to 100 million IU/mL. 5 Performed at: [address] [id number] Hardwood Flooring Specialist: Blayne Funez MD, Phone: [phone] Performed at: [address] [id number] Hardwood Flooring Specialist: Bel Acuna MD, Phone: [phone] 6 F0 - No fibrosis 7 . [...] developed and its performance characteristics determined by [employer]. It has not been cleared or approved by the Food and Drug Administration. The FDA has determined that such clearance or approval is not necessary. . For questions regarding this report please contact customer service at [phone]. 12 Units are mL/min/1.73 m2 Chronic Kidney Disease Staging per NKF: Stage I & II GFR >=60 Normal to Mildly Decreased Stage III GFR 30-59 Moderately Decreased Stage IV GFR 15-29 Severely Decreased Stage V GFR <15 Very Little GFR Left ESRD GFR <15 on LEAD CUSTOMER SERVICE REPRESENTATIVE 13 This screening test for Hepa titis C Virus was above the 1.0 cutoff index value and will be sent to reference lab Laboratory [facility], [address] [place] [address]. [place] [address] for Hep C RNA SANDRA testing to confirm or exclude active Hepatitis C Virus infection. Screening test Positive samples with high index values (>11.0) usually (95%) confirm Positive, but <5 of every 100 samples with this result might be a false positive and Hep C RNA SANDRA testing will aid in patient management. 14 Negative: HCV RNA Not Detect ed Performed at: [address] [id number] Hardwood Flooring Specialist: Blayne Funez MD, Phone: [phone] Procedures Date Code Description Status 02/28/2021 639[address] Office/Outpatient Established Lo w MDM 20-29 Min Completed 02/15/2021 517[address] Office/Outpatient Established Lo w MDM 20-29 Min Completed 02/02/2021 24083 Office/Outpatient Established Lo w MDM 20-29 Min Completed 01/30/2021 05240 Office/Outpatient New Low MDM 30 -44 Minutes Completed Encounters Type Date Location Provider Dx Diagnosis Office Visit 02/28/2021 12:00p [facility] JUAN CARLOS Almazan J01.10 Acute frontal sinusitis, uns pecified Office Visit 02/15/2021 11:30a [facility] JUAN CARLOS Almazan K92.1 Melena G47.9 Sleep disorder, unspecified J30.9 Allergic rhinitis, unspecifi ed Office Visit 02/02/2021 12:30p [facility] JUAN CARLOS Almazan M75.52 Bursitis of left shoulder J30.9 Allergic rhinitis, unspecifi ed G47.00 Insomnia, unspecified Office Visit 01/30/2021 10:30a [facility] JUAN CARLOS Almazan F19.20 Other psychoactive substance dependence, uncomplicated M51.36 Other intervertebral disc de generation, lumbar region G47.00 Insomnia, unspecified Assessments Date Code Description Provider 02/28/2021 J01.10 Acute frontal sinusitis, unspeci fied Sarabjit Medina, PA 02/15/2021 K92.1 Annabelle Sarabjit G Kaleb myaer, PA 02/15/2021 G47.9 Sleep disorder, unspecified Efe christina Medina, PA 02/15/2021 J30.9 Allergic rhinitis, unspecified F mica Medina, PA 02/02/2021 M75.52 Bursitis of left shoulder Albertoder ick Iona Medina, PA 02/02/2021 J30.9 Allergic rhinitis, unspecified F redericsadaf Medina, PA 02/02/2021 G47.00 Insomnia, unspecified Sarabjit G Carol, PA 01/30/2021 F19.20 Other psychoactive substance dep endence, uncomplicated Sarabjit G Carol, PA 01/30/2021 M51.36 Other intervertebral disc degene ration, lumbar region Sarabjit Medina, PA 01/30/2021 G47.00 Insomnia, unspecified Sarabjit G Tontarski, PA Plan of Treatment Future Appointment(s):* 03/08/2021 12:00 pm - JUAN CARLOS [place] [facility] Referrals Refer to Reason for Referral Status Appt Date Brant Del Valle M.D. PATIENT WITH C/O BLOOD IN STOOL. PLEASE EVAL AND TREAT. Sent 05/03/2021 [facility] [address], [address] [facility] [address] [phone] [facility] PATIENT WITH DIFFICULT Y SLEEPING. WAKES GASPING FOR AIR. CHEST XRAY ORDERED. PLEASE PHUC MADDOX, SLEEP STUDY. Sent [address] [place] [address] [phone]
--- OUTSIDE RECORDS SUMMARY | 2021-03-23 20:14 | CCD ---
Author Author Jasmin Farley Organization [employer] Address [address] [place] [address] Care Team Providers Care Senior Telecommunications Specialist Name Role Phone Ambreen Farley Unavailable JohannykevinDahiana Unavailable Min Hernandez Unavailable Monika White Unavailable Functional Status No Results Mental Status No Results Assessments SatFeb 20 22:16:19 EDT 2020: No Assessment Information Health Concerns No Known Health Concerns Allergies No Known Allergy Information Encounters Program Name Primary Diagnosis Admission Date/Time Discharge Date/Time BH - Short Term Crisis Respite SatAug 24 11:00:00 EDT 2020Sep 05 12:00:00 EDT 2020 BH - Short Term Crisis Respite SatNovember 02 16:10:00 EDT 2020November 06 12:00:00 EDT 2020 BH - Short Term Crisis Respite SatApr 01 13:30:00 EDT 2019Apr 08 12:00:00 EDT 2019 BH - Short Term Crisis Respite SatJun 08 00:00:00 EST 2019Jun 15 10:00:00 EST 2020 BH - Short Term Crisis Respite SatDec 21 14:15:00 EDT 2020Dec 23 14:00:00 EDT 2020 Intensive Support SatJun 09 10:00:00 EST 2019 BH - Short Term Crisis Respite SatJul 29 13:30:00 EST 2020Aug 08 12:00:00 EST 2020 Immunizations No Known Immunizations Lab Results [...] most recent episode (or current) unspecified* Code: [id number] * Start Date: SatApr 01 09:00:00 EDT 2019 * Text: * Mental Health and Stress Management* Code: * Start Date: SatNovember 02 00:00:00 EDT 2020 * Text: * Mental Health and Stress Management* Code: * Start Date: SatDec 21 00:00:00 EDT 2020 * Text: * Posttraumatic stress disorder* Code: [id number] * Start Date: SatApr 01 09:30:00 EDT [...]
--- OUTSIDE RECORDS SUMMARY | 2021-03-23 20:15 | CCD ---
Author Author AutogeneDENISHA claros Autogene rated Organization [facility] HC Address Unknown Phone Unavailable Care Team Providers Care Mobile Sales Expert Name Role Phone Yaron Lobato AttendingPractitioner1 Peyton Tavarez Practitioner Cassidy Strauss Practitioner Dao Junior AttendingPractitioner1 Javier Goldstein Practitioner Ambar Patel AdmittingPractitioner1 Donna Buenrostro Practitioner Swati Katz Practitioner Livia Nguyen AttendingPractitioner1 Kathryn Sinha Practitioner Namrata Armstrong Practitioner Nic Mitchell AttendingPractitioner1 Artemio Orantes Attgails Alvin Fields Practitioner Kylie Ann Practitioner Kodak Koo Practitioner Karla Person Practitioner Tashia Campo Practitioner Carri Moore Practitioner Sneha Celeste Practitioner Quintin Cornell AdmittingPractitioner1 Zara Valdez Practitioner Samuel Pierce Practitioner Functional Status No Results Allergies Name Onset Date Reaction Severity SULFAMETHOXAZOLE (Allergy) SatJun 24 07:00:00 EST 2020 Hives Moderate to severe PCN (penicillin) (Allergy) SatJun 24 07:00:00 EST 2019 Hives Moderate to severe CLINDAMYCIN (Allergy) SatJun 24 07:00:00 EST 2019 Hives Moderate to severe KETOROLAC (Allergy) SatJun 24 07:00:00 EST 2019 Hives Moderate METRONIDAZOLE (Allergy) SatJun 24 07:00:00 EST 2019 Headache (finding) Moderate NONSTEROIDAL ANTIINFLAMMATORY DRUG (Allergy) Wed Jun 24 07:00:00 EST 2019 Other or Unspecified Life threatening severity HYDROCORTISONE (Allergy) SatJun 24 07:00:00 EST 2019 Pruritic rash (disorder) Severe NUTS (Allergy) W ed Jun 24 07:00:00 EST 2019 RED DYE (Allergy) SatJun 24 07:00:00 EST 2019 Encounters Program Name Primary Diagnosis Admission Date/ Time Discharge Date/Time [facility] Jan 10 11:41:00 EDT 2016 [facility] Wait[facility] SatJun 13 13:54:00 EST 2020Jun 27 17:13:00 EST 2020 [facility] SatJan 09 10:42:00 EDT 2017 [facility] S[facility] davey abinoid dependence SatDec 28 10:30:00 EDT 2020Jan 25 11:30:00 EDT 2020 [facility] SatOctober 08 11:40:00 EDT 2016 [facility] Alcohol use disorder, severe SatJun 24 14:16:00 EST 2019 Sat Jun 27 13:25:00 EST 2019 [facility] Sat 02:02:00 EST 2019 [facility] Polysubstance abuse SatJun 24 09:10:00 EST 2019Aug 03 08:17:00 EST 2019 [facility] Heroin use disorder, moderate, dependence SatApr 04 10:25:00 EDT 2019Jan 05 11:15:00 EDT 2020 [facility] SatSep 24 13:11:00 EDT 2018Mar 02 11:08:00 EDT 2019 [facility] SatJul 10 16:04:00 EST 2018 [facility] SatSep 24 12:11:00 EDT 2019 [facility] Sat Jan 12 09:36:00 EDT 2016 [facility] Wait[facility] Heroin use disorder, severe, on maintenance therapy, dependence SatAug 20 09:30:00 EDT 2019October 14 11:29:00 EDT 2020 [facility] SatOct 01 08:57:00 EDT 2019Nov 19 13:39:00 EDT 2020 [facility] Drug abuse counseling and surveillance of drug abuser SatAug 03 08:19:00 EST 2019Feb 15 08:55:00 EDT 2020 [facility] Synthetic cannabinoid dependence Sat Jul 18 14:16:00 EST 2019 Mon Jul 10 11:58:00 EST 2019 [facility] SatAug 19 09:30:00 EDT 2019 [facility] Severe opioid use disorder SatJul 20 11:59:00 EST 2019 Sat b 17:29:00 EST 2019 [facility] Synthetic cannabinoid dependence Wed Jul 15 10:25:00 EST 2019Jul 18 14:14:00 EST 2019 [facility] SatJan 08 10:39:00 EDT 2017 [facility] SatAug 27 14:15:00 EDT 2019 [facility] Waiting SatSep 11 09:41:00 EDT 2019 Immunizations No Known Immunizations Lab Results Result Type Result Value Date SYNTHETIC CANNABINOIDS, QL, (U) NEGATIVE CONFIRMED SatFeb 04 14:04:00 EDT 2018 SYNTHETIC CANNABINOIDS CONFIRM: NEGATIVE SatFeb 04 14:04:00 EDT 2019 COMMENT see note SatFeb 04 14 :04:00 EDT 2019 Amphetamines NEGATIVE ng/mL SatFeb 04 14:04:00 EDT 2018 Amphetamine DNR ng/mL SatJan 09 8 14:04:00 EDT 2018 Methamphetamine DNR ng/mL Sat ug 14:04:00 EDT 2019 Confirmation Testing Performed at: DNR SatFeb 04 14:04:00 EDT 2019 COMMENT SatFeb 04 14 :04:00 EDT 2019 Barbiturates NEGATIVE CONFIRMED ng/mL SatFeb 04 14:04:00 EDT 2019 Amobarbital NEGATIVE ng/mL Sat A ug 28 14:04:00 EDT 2019 Butalbital NEGATIVE ng/mL Sat Au g 28 14:04:00 EDT 2019 Pentobarbital NEGATIVE ng/mL SatFeb 04 14:04:00 EDT 2019 Phenobarbital NEGATIVE ng/mL SatFeb 04 14:04:00 EDT 2019 Secobarbital NEGATIVE ng/mL SatFeb 04 14:04:00 EDT 2019 Confirmation Testing Performed at: DNR SatFeb 04 14:04:00 EDT 2019 COMMENT SatFeb 04 14 :04:00 EDT 2019 Benzodiazepines NEGATIVE ng/mL W Feb 04 14:04:00 EDT 2019 Alphahydroxyalprazolam DNR ng/mL SatFeb 04 14:04:00 EDT 2018 Alphahydroxymidazolam DNR ng/mL SatFeb 04 14:04:00 EDT 2018 Alphahydroxytriazolam DNR ng/mL SatFeb 04 14:04:00 EDT 2019 Aminoclonazepam DNR ng/mL Sat 14:04:00 EDT 2018 Hydroxyethylflurazepam DNR ng/mL SatFeb 04 14:04:00 EDT 2019 Lorazepam DNR ng/mL SatFeb 04 14:04:00 EDT 2018 Nordiazepam DNR ng/mL SatJan 09 8 14:04:00 EDT 2018 Oxazepam DNR ng/mL SatFeb 04 1 4:04:00 EDT 2019 Temazepam DNR ng/mL SatFeb 04 14:04:00 EDT 2019 Confirmation Testing Performed at: DNR SatFeb 04 14:04:00 EDT 2019 COMMENT SatFeb 04 14 :04:00 EDT 2019 Cocaine Metabolite NEGATIVE CONFIRMED ng/ mL SatFeb 04 14:04:00 EDT 2019 Benzoylecgonine NEGATIVE ng/mL W Feb 04 14:04:00 EDT 2019 Confirmation Testing Performed at: DNR SatFeb 04 14:04:00 EDT 2019 COMMENT SatFeb 04 14 :04:00 EDT 2019 Alcohol, Ethyl NEGATIVE CONFIRMED mg/dL SatFeb 04 14:04:00 EDT 2018 Alcohol, Ethyl NEGATIVE mg/dL We Feb 04 14:04:00 EDT 2019 Confirmation Testing Performed at: DNR SatFeb 04 14:04:00 EDT 2019 COMMENT SatFeb 04 14 :04:00 EDT 2019 Marijuana Metabolite 20 NEGATIVE CONFIRME D ng/mL SatFeb 04 14:04:00 EDT 2019 Marijuana Metabolite NEGATIVE ng/mL SatFeb 04 14:04:00 EDT 2019 Confirmation Testing Performed at: DNR SatFeb 04 14:04:00 EDT 2019 COMMENT SatFeb 04 14 :04:00 EDT 2019 Methadone Metabolite NEGATIVE ng/mL SatFeb 04 14:04:00 EDT 2019 EDDP DNR ng/mL SatFeb 04 14:04 :00 EDT 2019 Methadone DNR ng/mL SatFeb 04 14:04:00 EDT 2019 Confirmation Testing Performed at: DNR SatFeb 04 14:04:00 EDT 2019 COMMENT SatFeb 04 14 :04:00 EDT 2019 Phencyclidine NEGATIVE CONFIRMED ng/mL SatFeb 04 14:04:00 EDT 2018 Phencyclidine NEGATIVE ng/mL SatFeb 04 14:04:00 EDT 2018 Confirmation Testing Performed at: DNR SatFeb 04 14:04:00 EDT 2018 COMMENT SatFeb 04 14 :04:00 EDT 2019 Buprenorphine POSITIVE ng/mL SatFeb 04 14:04:00 EDT 2018 COMMENT SatFeb 04 14 :04:00 EDT 2019 Benzodiazepines NEGATIVE ng/mL S at Jun 27 15:16:00 EST 2020 Alphahydroxyalprazolam DNR ng/mL Sat Jun 27 15:16:00 EST 2020 Alphahydroxymidazolam DNR ng/mL Sat Jun 27 15:16:00 EST 2020 Alphahydroxytriazolam DNR ng/mL Sat Jun 27 15:16:00 EST 2020 Aminoclonazepam DNR ng/mL Sat J an 15:16:00 EST 2020 Hydroxyethylflurazepam DNR ng/mL Sat Jun 27 15:16:00 EST 2020 Lorazepam DNR ng/mL Sat Jun 27 15:16:00 EST 2020 Nordiazepam DNR ng/mL Sat Jun 10 8 15:16:00 EST 2020 Oxazepam DNR ng/mL Sat Jun 27 1 5:16:00 EST 2020 Temazepam DNR ng/mL Sat Jun 27 15:16:00 EST 2020 Confirmation Testing Performed at: DNR Sat Jun 27 15:16:00 EST 2020 COMMENT Sat Jun 27 15 :16:00 EST 2020 Cocaine Metabolite POSITIVE ng/mL Sat Jun 27 15:16:00 EST 2020 Benzoylecgonine 171 ng/mL Sat J an 18 15:16:00 EST 2020 Confirmation Testing Performed at: DNR Sat Jun 27 15:16:00 EST 2020 COMMENT Sat Jun 27 15 :16:00 EST 2020 Alcohol, Ethyl NEGATIVE mg/dL Sa t Jun 27 15:16:00 EST 2020 Alcohol, Ethyl DNR mg/dL Sat Ja n 18 15:16:00 EST 2020 Confirmation Testing Performed at: DNR Sat Jun 27 15:16:00 EST 2020 COMMENT Sat Jun 27 15 :16:00 EST 2020 Marijuana Metabolite 20 NEGATIVE ng/mL Sat Jun 27 15:16:00 EST 2020 Marijuana Metabolite DNR ng/mL Sat Jun 27 15:16:00 EST 2020 Confirmation Testing Performed at: DNR Sat Jun 27 15:16:00 EST 2020 COMMENT Sat Jun 27 15 :16:00 EST 2020 Opiates NEGATIVE ng/mL Sat Jun 10 15:16:00 EST 2020 Codeine DNR ng/mL Sat Jun 27 15 :16:00 EST 2019 Hydrocodone DNR ng/mL Sat Jun 10 15:16:00 EST 2020 Hydromorphone DNR ng/mL Sat Jun 27 15:16:00 EST 2019 Morphine DNR ng/mL Sat Jun 27 1 5:16:00 EST 2019 Norhydrocodone DNR ng/mL Sat 15:16:00 EST 2020 Confirmation Testing Performed at: DNR Sat Jun 27 15:16:00 EST 2020 COMMENT Sat Jun 27 15 :16:00 EST 2020 Buprenorphine NEGATIVE ng/mL Sat Jun 27 15:16:00 EST 2020 COMMENT Sat Jun 27 15 :16:00 EST 2020 COLOR YELLOW Sun Jun 28 13:4 2:00 EST 2020 APPEARANCE TURBID Sun Jun 28 13:42:00 EST 2020 SPECIFIC GRAVITY 1.033 Sun Jun 28 13:42:00 EST 2020 PH 6.5 Sun Jun 28 13:42:0 0 EST 2020 GLUCOSE NEGATIVE Sun Jun 28 13 :42:00 EST 2020 BILIRUBIN NEGATIVE Sun Jun 28 13:42:00 EST 2020 KETONES NEGATIVE Sun Jun 28 13 :42:00 EST 2020 OCCULT BLOOD TRACE Sun Jun 28 13:42:00 EST 2020 PROTEIN 3+ Sun Jun 28 13 :42:00 EST 2020 NITRITE POSITIVE Sun Jun 28 13 :42:00 EST 2020 LEUKOCYTE ESTERASE 1+ Greene n Jun 28 13:42:00 EST 2020 WBC 40-60 /HPF Sun Jun 28 13:42: 00 EST 2020 RBC 0-2 /HPF Sun Jun 28 13:42: 00 EST 2020 SQUAMOUS EPITHELIAL CELLS 6-10 /HPF Sun Jun 28 13:42:00 EST 2020 TRANSITIONAL EPITHELIAL CELLS DNR /HPF Sun Jun 28 13:42:00 EST 2020 RENAL EPITHELIAL CELLS DNR /HPF Sun Jun 28 13:42:00 EST 2020 BACTERIA MANY /HPF Sun Jun 28 3:42:00 EST 2020 CALCIUM OXALATE CRYSTALS MODERATE /HPF Sun Jun 28 13:42:00 EST 2020 TRIPLE PHOSPHATE CRYSTALS DNR /HPF Sun Jun 28 13:42:00 EST 2020 URIC ACID CRYSTALS DNR /HPF [place] n Jun 28 13:42:00 EST 2020 AMORPHOUS SEDIMENT FEW /HPF [place] n Jun 28 13:42:00 EST 2020 CRYSTALS DNR /HPF Sun Jun 28 3:42:00 EST 2020 HYALINE CAST NONE SEEN /LPF Sun Jun 28 13:42:00 EST 2020 GRANULAR CAST DNR /LPF Sun Jun 28 13:42:00 EST 2020 CASTS DNR /LPF Sun Jun 28 13:4 2:00 EST 2020 YEAST DNR /HPF Sun Jun 28 13:4 2:00 EST 2020 COMMENTS DNR SatJun 28 3:42:00 EST 2020 NOTE DNR Sun Jun 28 13:42 :00 EST 2020 COLOR YELLOW Jie Feb 06 07:1 6:00 EST 2020 APPEARANCE TURBID Jie Feb 06 07:16:00 EST 2020 SPECIFIC GRAVITY 1.024 Jie Feb 06 07:16:00 EST 2020 PH 7.0 Jie Feb 06 07:16:0 0 EST 2020 GLUCOSE NEGATIVE Jie Feb 06 07 :16:00 EST 2020 BILIRUBIN NEGATIVE Jie Feb 06 07:16:00 EST 2020 KETONES NEGATIVE Jie Feb 06 07 :16:00 EST 2020 OCCULT BLOOD TRACE Jie Feb 06 07:16:00 EST 2020 PROTEIN 3+ Jie Feb 06 07 :16:00 EST 2020 NITRITE POSITIVE Jie Feb 06 07 :16:00 EST 2020 LEUKOCYTE ESTERASE 1+ Th u Feb 06 07:16:00 EST 2020 WBC > OR = 60 /HPF Jie Feb 06 07 :16:00 EST 2020 RBC NONE SEEN /HPF Jie Feb 06 07 :16:00 EST 2020 SQUAMOUS EPITHELIAL CELLS 20-40 /HPF Jie Feb 06 07:16:00 EST 2020 TRANSITIONAL EPITHELIAL CELLS DNR /HPF Jie Feb 06 07:16:00 EST 2020 RENAL EPITHELIAL CELLS DNR /HPF Jie Feb 06 07:16:00 EST 2020 BACTERIA MANY /HPF Jie Feb 06 0 7:16:00 EST 2020 CALCIUM OXALATE CRYSTALS DNR /HPF Jie Feb 06 07:16:00 EST 2020 TRIPLE PHOSPHATE CRYSTALS DNR /HPF Jie Feb 06 07:16:00 EST 2020 URIC ACID CRYSTALS DNR /HPF Th u Feb 06 07:16:00 EST 2020 AMORPHOUS SEDIMENT DNR /HPF Th u Feb 06 07:16:00 EST 2020 CRYSTALS DNR /HPF Jie Feb 06 0 7:16:00 EST 2020 HYALINE CAST NONE SEEN /LPF Jie Feb 06 07:16:00 EST 2020 GRANULAR CAST DNR /LPF Jie Feb 06 07:16:00 EST 2020 CASTS DNR /LPF Jie b 06 07:1 6:00 EST 2020 YEAST FEW /HPF Jie Jul 06 07:1 6:00 2020 COMMENTS DNR Jie b 06 0 7:16:00 2020 NOTE DNR Jie b 06 07:16 :00 2020 HIV AG/AB, 4TH GEN NON-REACTIVE SatJul 31 11:33:00 2020 CHLAMYDIA TRACHOMATIS RNA, TMA, UROGENITAL TNP SatJul 31 11:33:00 2020 NEISSERIA GONORRHOEAE RNA, TMA, UROGENITAL DNR SatJul 31 11:33:00 2020 SURESWAB(R) TRICHOMONAS VAGINALIS RNA, QL, TMA TNP SatJul 31 11:33:00 2020 SURESWAB(R), MYCOPLASMA GENITALIUM,REALTIME PCR TNP SatJul 31 11:33:00 2020 ASSAY DETAILS TNP SatJul 31 11:33:00 2019 CHLAMYDIA TRACHOMATIS RNA, TMA, UROGENITAL Not Detected SatJul 31 11:33:00 2019 NEISSERIA GONORRHOEAE RNA, TMA, UROGENITAL Not Detected SatJul 31 11:33:00 2020 SURESWAB(R) TRICHOMONAS VAGINALIS RNA, QL, T MA Detected SatJul 31 11:33:00 2020 SURESWAB(R), MYCOPLASMA GENITALIUM,REALTIME PCR Not Detected SatJul 31 11:33:00 2019 ASSAY DETAILS See Note SatJul 31 11:33:00 2019 GLUCOSE 79 mg/dL SatJul 31 11 :33:00 2020 UREA NITROGEN (BUN) 11 mg/dL F Jul 31 11:33:00 2020 CREATININE 0.78 mg/dL SatJul 31 11:33:00 2020 eGFR NON-AFR. FILIPINO 101 mL/min/1.73m2 SatJul 31 11:33:00 2019 eGFR 117 mL/min/1.73m2 SatJul 31 11:33:00 2020 BUN/CREATININE RATIO NOT APPLICABLE (calc ) SatJul 31 11:33:00 2019 SODIUM 135 mmol/L SatJul 31 11: 33:00 2019 POTASSIUM 4.8 mmol/L SatJul 31 11:33:00 2020 CHLORIDE 102 mmol/L SatJul 31 1 1:33:00 EST 2020 CARBON DIOXIDE 26 mmol/L Sat Fe b 11:33:00 EST 2020 CALCIUM 9.0 mg/dL Sat Feb 11 :33:00 EST 2020 PROTEIN, TOTAL 6.4 g/dL Sat Fe b 11:33:00 EST 2020 ALBUMIN 3.6 g/dL Sat Feb 11 :33:00 EST 2020 GLOBULIN 2.8 g/dL (calc) Sat Feb 11:33:00 EST 2020 ALBUMIN/GLOBULIN RATIO 1.3 (calc) Sat Feb 11:33:00 EST 2020 BILIRUBIN, TOTAL 0.3 mg/dL Sat Feb 11:33:00 EST 2020 ALKALINE PHOSPHATASE 71 U/L Sat Feb 11:33:00 EST 2020 AST 19 U/L Sat Feb 11:33: 00 EST 2020 ALT 19 U/L Sat Feb 11:33: 00 EST 2020 WHITE BLOOD CELL COUNT 9.0 Thousand/uL Satb 11:33:00 EST 2020 RED BLOOD CELL COUNT 4.58 Million/uL Sat Feb 11:33:00 EST 2020 HEMOGLOBIN 14.7 g/dL Sat Feb 11:33:00 EST 2020 HEMATOCRIT 43.1 % Sat Feb 11:33:00 EST 2020 MCV 94.1 fL Sat Feb 11:33: 00 EST 2020 MCH 32.1 pg Sat Feb 11:33: 00 EST 2020 MCHC 34.1 g/dL Sat Feb 11:33 :00 EST 2020 RDW 13.6 % Sat Feb 11:33: 00 EST 2020 PLATELET COUNT 284 Thousand/uL F Jul 31 11:33:00 EST 2020 MPV 11.4 fL Sat Feb 11:33: 00 EST 2020 ABSOLUTE NEUTROPHILS 5724 cells/uL Sat Feb 11:33:00 EST 2020 ABSOLUTE BAND NEUTROPHILS DNR cells/uL Sat Feb 11:33:00 EST 2020 ABSOLUTE METAMYELOCYTES DNR cells/uL Sat Feb 11:33:00 EST 2020 ABSOLUTE MYELOCYTES DNR cells/uL Sat Feb 11:33:00 EST 2020 ABSOLUTE PROMYELOCYTES DNR cells/uL Sat Feb 11:33:00 EST 2020 ABSOLUTE LYMPHOCYTES 2682 cells/uL Sat Feb 11:33:00 EST 2020 ABSOLUTE MONOCYTES 459 cells/uL Sat Feb 11:33:00 EST 2020 ABSOLUTE EOSINOPHILS 99 cells/uL Sat Feb 11:33:00 EST 2020 ABSOLUTE BASOPHILS 36 cells/uL F ri Feb 21 11:33:00 EST 2020 ABSOLUTE BLASTS DNR cells/uL Sat Feb 21 11:33:00 2019 ABSOLUTE NUCLEATED RBC DNR cells/uL Sat Feb 11:33:00 2020 NEUTROPHILS 63.6 % Fri Feb 2 1 11:33:00 EST 2020 BAND NEUTROPHILS DNR % Sat Feb 21 11:33:00 2020 METAMYELOCYTES DNR % Fri Fe b 21 11:33:00 EST 2020 MYELOCYTES DNR % Sat Feb 21 11:33:00 EST 2020 PROMYELOCYTES DNR % Sat Feb 21 11:33:00 2020 LYMPHOCYTES 29.8 % Fri Feb 2 1 11:33:00 2020 REACTIVE LYMPHOCYTES DNR % Sat Feb 11:33:00 2019 MONOCYTES 5.1 % Sat Feb 11:33:00 2020 EOSINOPHILS 1.1 % Sat Feb 2 1 11:33:00 2020 BASOPHILS 0.4 % Sat Feb 11:33:00 2019 BLASTS DNR % Satb 11: 33:00 2019 NUCLEATED RBC DNR /100 WBC Sat F eb 11:33:00 2019 COMMENT(S) DNR Satb 11:33:00 2019 HEPATITIS C ANTIBODY REACTIVE Satb 11:33:00 2019 SIGNAL TO CUT-OFF 31.20 Satb 11:33:00 2019 RPR (DX) W/REFL TITER AND CONFIRMATORY TESTI NG NON-REACTIVE Satb 11:33:00 2019 HCV RNA, QUANTITATIVE REAL TIME PCR SatJul 17 08:31:00 2019 HCV RNA, QUANTITATIVE REAL TIME PCR SatJul 17 08:31:00 2019 HCV RNA, QUANTITATIVE REAL TIME PCR SatJul 17 09:29:00 2019 HCV RNA, QUANTITATIVE REAL TIME PCR SatJul 17 09:29:00 2019 HCV RNA, QUANTITATIVE REAL TIME PCR <15 NOT DETECTED IU/mL SatJul 21 05:49:00 2019 HCV RNA, QUANTITATIVE REAL TIME PCR <1.18 NOT DETECTED Log IU/mL SatJul 21 05:49:00 2019 COMMENT SatJul 21 05 :49:00 2020 HCV RNA, QUANTITATIVE REAL TIME PCR <15 NOT DETECTED IU/mL Fri Feb 21 11:33:00 EST 2020 HCV RNA, QUANTITATIVE REAL TIME PCR <1.18 NOT DETECTED Log IU/mL Fri Feb 21 11:33:00 EST 2020 COMMENT Fri Feb 21 11 :33:00 EST 2020 CREATININE, RANDOM URINE 86 mg/dL Jie Feb 27 08:06:00 EST 2020 Benzodiazepines NEGATIVE ng/mL T hu Feb 27 08:06:00 EST 2020 Alphahydroxyalprazolam DNR ng/mL Jie Feb 27 08:06:00 EST 2020 Alphahydroxymidazolam DNR ng/mL Jie Feb 27 08:06:00 EST 2020 Alphahydroxytriazolam DNR ng/mL Jie Feb 27 08:06:00 EST 2020 Aminoclonazepam DNR ng/mL Jie F eb 27 08:06:00 EST 2020 Hydroxyethylflurazepam DNR ng/mL Jie Feb 27 08:06:00 EST 2020 Lorazepam DNR ng/mL Jie Feb 27 08:06:00 EST 2020 Nordiazepam DNR ng/mL Jie Feb 2 7 08:06:00 EST 2020 Oxazepam DNR ng/mL Jie Feb 27 0 8:06:00 EST 2020 Temazepam DNR ng/mL Jie Feb 27 08:06:00 EST 2020 Confirmation Testing Performed at: DNR Jie Feb 27 08:06:00 EST 2020 COMMENT Jie Feb 27 08 :06:00 EST 2020 Cocaine Metabolite NEGATIVE ng/mL Jie Feb 27 08:06:00 EST 2020 Benzoylecgonine DNR ng/mL Jie F eb 27 08:06:00 EST 2020 Confirmation Testing Performed at: DNR Jie Feb 27 08:06:00 EST 2020 COMMENT Jie Feb 27 08 :06:00 EST 2020 Alcohol, Ethyl NEGATIVE mg/dL Th u Feb 27 08:06:00 EST 2020 Alcohol, Ethyl DNR mg/dL Jie Fe b 27 08:06:00 EST 2020 Confirmation Testing Performed at: DNR Jie Feb 27 08:06:00 EST 2020 COMMENT Jie Feb 27 08 :06:00 EST 2020 Marijuana Metabolite 20 NEGATIVE ng/mL Jie Feb 27 08:06:00 EST 2020 Marijuana Metabolite DNR ng/mL Jie Feb 27 08:06:00 EST 2020 Confirmation Testing Performed at: DNR Jie Feb 27 08:06:00 EST 2020 COMMENT Jie Feb 27 08 :06:00 EST 2020 Opiates NEGATIVE ng/mL Jie Feb 2 7 08:06:00 EST 2020 Codeine DNR ng/mL Jie Feb 27 08 :06:00 EST 2020 Hydrocodone DNR ng/mL Jie Feb 2 7 08:06:00 EST 2020 Hydromorphone DNR ng/mL Jie Feb 27 08:06:00 EST 2020 Morphine DNR ng/mL Jie Feb 27 0 8:06:00 EST 2020 Norhydrocodone DNR ng/mL Jie Fe b 27 08:06:00 EST 2020 Confirmation Testing Performed at: DNR Jie Feb 27 08:06:00 EST 2020 COMMENT Jie Feb 27 08 :06:00 EST 2020 Buprenorphine 251 ng/mL Jie Feb 27 08:06:00 EST 2020 Norbuprenorphine 516 ng/mL Jie Feb 27 08:06:00 EST 2020 COMMENT Jie Feb 27 08 :06:00 EST 2020 FIBROSIS SCORE TNP Jie Fe b 27 06:57:00 EST 2020 FIBROSIS STAGE DNR Jie Fe b 27 06:57:00 EST 2020 FIBROSIS INTERPRETATION DNR Jie Feb 27 06:57:00 EST 2020 NECROINFLAMMAT ACT SCORE DNR Jie Feb 27 06:57:00 EST 2020 NECROINFLAMMAT ACT GRADE DNR Jie Feb 27 06:57:00 EST 2020 NECROINFLAMMAT INTERP DNR Jie Feb 27 06:57:00 EST 2020 ALPHA 2 MACROGLOBULIN DNR Jie Feb 27 06:57:00 EST 2020 HAPTOGLOBIN DNR Jie Feb 2 7 06:57:00 EST 2020 APOLIPOPROTEIN A1 DNR Jie Feb 27 06:57:00 EST 2020 TOTAL BILIRUBIN DNR Jie F eb 27 06:57:00 EST 2020 GGT DNR Jie Feb 27 06:57: 00 EST 2020 ALT DNR Jie Feb 27 06:57: 00 EST 2020 REFERENCE ID DNR Jie Feb 27 06:57:00 EST 2020 FOOTNOTE DNR Jie Feb 27 0 6:57:00 EST 2020 SODIUM 138 mmol/L SatAug 10 23: 32:00 EST 2020 POTASSIUM 4.2 mmol/L SatAug 10 23:32:00 2019 CHLORIDE 106 mmol/L SatAug 10 2 3:32:00 2019 CARBON DIOXIDE 23 mmol/L [facility] r 08 30:32:00 2019 CREATININE, RANDOM URINE 104 mg/dL SatAug 10:32:00 2019 ALBUMIN, URINE 92.9 mg/dL [facility] r 08 30:32:00 2019 ALBUMIN/CREATININE RATIO, RANDOM URINE 893 mcg/mg creat SatAug 10:32:00 2019 CREATININE 0.71 mg/dL SatAug 10:32:00 2019 eGFR NON-AFR. FILIPINO 113 mL/min/1.73m2 SatAug 10:32:00 2019 eGFR 132 mL/min/1.73m2 SatAug 10:32:00 2019 HEMOGLOBIN 13.2 g/dL SatAug 10:32:00 2019 PARATHYROID HORMONE, INTACT 34 pg/mL SatAug 10:32:00 2019 CALCIUM 8.8 mg/dL SatAug 10 :32:00 2019 PHOSPHATE ( PHOSPHORUS) 4.3 mg/dL SatAug 10:32:00 2019 VITAMIN D,25-OH,TOTAL,IA 19 ng/mL SatAug 10:32:00 2019 PROTEIN, TOTAL 6.8 g/dL [facility] r 08 30:32:00 2019 ALBUMIN 3.7 g/dL SatAug 10 :32:00 2019 GLOBULIN 3.1 g/dL (calc) SatAug 10:32:00 2019 ALBUMIN/GLOBULIN RATIO 1.2 (calc) SatAug 10:32:00 2019 BILIRUBIN, TOTAL 0.2 mg/dL SatAug 10:32:00 2019 BILIRUBIN, DIRECT 0.0 mg/dL SatAug 10:32:00 2019 BILIRUBIN, INDIRECT 0.2 mg/dL (calc) SatAug 10:32:00 2019 ALKALINE PHOSPHATASE 78 U/L SatAug 10:32:00 2019 AST 37 U/L SatAug 10:32: 00 2019 ALT 35 U/L SatAug 10:32: 00 2019 HEPATITIS C VIRAL RNA GENOTYPE, LIPA(R) Not Detected SatAug 10:32:00 2019 COLOR TNP SatAug 10 23:3 2:00 EST 2020 APPEARANCE DNR SatAug 10 23:32:00 EST 2020 SPECIFIC GRAVITY DNR SatAug 10 23:32:00 EST 2020 PH DNR SatAug 10 23:32:0 0 EST 2020 GLUCOSE DNR SatAug 10 23 :32:00 EST 2020 BILIRUBIN DNR SatAug 10 23:32:00 EST 2020 KETONES DNR SatAug 10 23 :32:00 EST 2020 OCCULT BLOOD DNR SatAug 10 23:32:00 EST 2020 PROTEIN DNR SatAug 10 23 :32:00 EST 2020 NITRITE DNR SatAug 10 23 :32:00 EST 2020 LEUKOCYTE ESTERASE DNR Aug 10 23:32:00 EST 2020 WBC DNR /HPF SatAug 10 23:32: 00 EST 2020 RBC DNR /HPF SatAug 10 23:32: 00 EST 2020 SQUAMOUS EPITHELIAL CELLS DNR /HPF SatAug 10 23:32:00 EST 2020 TRANSITIONAL EPITHELIAL CELLS DNR /HPF SatAug 10 23:32:00 EST 2020 RENAL EPITHELIAL CELLS DNR /HPF SatAug 10 23:32:00 EST 2020 BACTERIA DNR /HPF SatAug 10 2 3:32:00 EST 2020 CALCIUM OXALATE CRYSTALS DNR /HPF SatAug 10 23:32:00 EST 2020 TRIPLE PHOSPHATE CRYSTALS DNR /HPF SatAug 10 23:32:00 EST 2020 URIC ACID CRYSTALS DNR /HPF Aug 10 23:32:00 EST 2020 AMORPHOUS SEDIMENT DNR /HPF Aug 10 23:32:00 EST 2020 CRYSTALS DNR /HPF SatAug 10 2 3:32:00 EST 2020 HYALINE CAST DNR /LPF SatAug 10 23:32:00 EST 2020 GRANULAR CAST DNR /LPF SatAug 10 23:32:00 EST 2020 CASTS DNR /LPF SatAug 10 23:3 2:00 EST 2020 YEAST DNR /HPF SatAug 10 23:3 2:00 EST 2020 COMMENTS DNR SatAug 10 2 3:32:00 EST 2020 NOTE DNR SatAug 10 23:32 :00 EST 2020 WHITE BLOOD CELL COUNT 9.2 Thousand/uL SatAug 10 23:32:00 EST 2020 RED BLOOD CELL COUNT 4.31 Million/uL SatAug 10 23:32:00 EST 2020 HEMOGLOBIN 13.2 g/dL SatAug 10 23:32:00 EST 2020 HEMATOCRIT 40.2 % SatAug 10 23:32:00 EST 2020 MCV 93.3 fL SatAug 10 23:32: 00 EST 2020 MCH 30.6 pg SatAug 10 23:32: 00 EST 2020 MCHC 32.8 g/dL SatAug 10 23:32 :00 EST 2020 RDW 13.3 % SatAug 10 23:32: 00 EST 2020 PLATELET COUNT 364 Thousand/uL T Aug 10 23:32:00 EST 2020 MPV 10.6 fL SatAug 10 23:32: 00 EST 2020 ABSOLUTE NEUTROPHILS 5281 cells/uL SatAug 10 23:32:00 EST 2020 ABSOLUTE BAND NEUTROPHILS DNR cells/uL SatAug 10 23:32:00 EST 2020 ABSOLUTE METAMYELOCYTES DNR cells/uL SatAug 10 23:32:00 EST 2020 ABSOLUTE MYELOCYTES DNR cells/uL SatAug 10 23:32:00 EST 2020 ABSOLUTE PROMYELOCYTES DNR cells/uL SatAug 10 23:32:00 EST 2020 ABSOLUTE LYMPHOCYTES 3119 cells/uL SatAug 10 23:32:00 EST 2020 ABSOLUTE MONOCYTES 451 cells/uL SatAug 10 23:32:00 EST 2020 ABSOLUTE EOSINOPHILS 313 cells/uL SatAug 10 23:32:00 EST 2020 ABSOLUTE BASOPHILS 37 cells/uL T Aug 10 23:32:00 EST 2020 ABSOLUTE BLASTS DNR cells/uL Sat 03 23:32:00 EST 2020 ABSOLUTE NUCLEATED RBC DNR cells/uL Sat 03 23:32:00 EST 2020 NEUTROPHILS 57.4 % Sat 0 3 23:32:00 EST 2020 BAND NEUTROPHILS DNR % Sat 03 23:32:00 EST 2020 METAMYELOCYTES DNR % Sat r 03 23:32:00 EST 2020 MYELOCYTES DNR % Sat 03 23:32:00 EST 2020 PROMYELOCYTES DNR % Sat 03 23:32:00 EST 2020 LYMPHOCYTES 33.9 % Sat 0 3 23:32:00 EST 2020 REACTIVE LYMPHOCYTES DNR % Sat 03 23:32:00 EST 2020 MONOCYTES 4.9 % Sat 03 23:32:00 EST 2020 EOSINOPHILS 3.4 % Sat 0 3 23:32:00 EST 2020 BASOPHILS 0.4 % Sat 03 23:32:00 EST 2020 BLASTS DNR % SatAug 10 23: 32:00 EST 2020 NUCLEATED RBC DNR /100 WBC Tue M ar 23:32:00 EST 2020 COMMENT(S) DNR SatAug 10 23:32:00 EST 2020 INR 1.0 SatAug 10 23:32: 00 EST 2020 PT 10.4 sec SatAug 10 23:32:0 0 EST 2020 HEPATITIS B SURFACE ANTIGEN NON-REACTIVE SatAug 10 23:32:00 EST 2020 CONFIRMATION DNR SatAug 10 23:32:00 EST 2020 HEPATITIS B CORE ANTIBODY (IGM) NON-REACT CHIARA SatAug 10 23:32:00 EST 2020 HEPATITIS B SURFACE AB IMMUNITY, QN 105 m IU/mL SatAug 10 23:32:00 EST 2020 HEPATITIS A AB, TOTAL W/REFL IGM REACTIVE SatAug 10 23:32:00 EST 2020 HEPATITIS A IGM Fri F eb 28 13:48:00 EST 2020 HEPATITIS A IGM Fri F eb 28 13:48:00 EST 2020 HEPATITIS A IGM BORDERLINE Sat Feb 29 05:41:00 EST 2020 HEPATITIS A IGM BORDERLINE Sat Feb 29 05:41:00 EST 2020 HEPATITIS A IGM BORDERLINE SatAug 09 12:28:00 EST 2020 HEPATITIS A IGM BORDERLINE Mon Aug 09 12:28:00 EST 2020 HEPATITIS A IGM BORDERLINE SatAug 10 14:18:00 EST 2020 HEPATITIS A IGM BORDERLINE SatAug 10 14:18:00 EST 2020 HEPATITIS A IGM BORDERLINE SatAug 10 23:32:00 EST 2020 HEPATITIS A IGM BORDERLINE SatAug 10 23:32:00 EST 2020 CREATININE, RANDOM URINE 106 mg/dL Satb 12:48:00 EST 2020 Benzodiazepines NEGATIVE ng/mL F ri Feb 12:48:00 EST 2020 Alphahydroxyalprazolam DNR ng/mL Fri Feb 28 12:48:00 EST 2020 Alphahydroxymidazolam DNR ng/mL Fri Feb 28 12:48:00 EST 2020 Alphahydroxytriazolam DNR ng/mL Fri Feb 28 12:48:00 EST 2020 Aminoclonazepam DNR ng/mL Fri F eb 28 12:48:00 EST 2020 Hydroxyethylflurazepam DNR ng/mL Fri Feb 28 12:48:00 EST 2020 Lorazepam DNR ng/mL Fri Feb 28 12:48:00 EST 2020 Nordiazepam DNR ng/mL Fri Feb 2 8 12:48:00 EST 2020 Oxazepam DNR ng/mL Fri Feb 28 1 2:48:00 EST 2020 Temazepam DNR ng/mL Fri Feb 28 12:48:00 EST 2020 Confirmation Testing Performed at: DNR Fri Feb 28 12:48:00 EST 2020 COMMENT Fri Feb 28 12 :48:00 EST 2020 Cocaine Metabolite NEGATIVE ng/mL Fri Feb 28 12:48:00 EST 2020 Benzoylecgonine DNR ng/mL Fri F eb 28 12:48:00 EST 2020 Confirmation Testing Performed at: DNR Fri Feb 28 12:48:00 EST 2020 COMMENT Fri Feb 28 12 :48:00 EST 2020 Alcohol, Ethyl NEGATIVE mg/dL Fr i Feb 28 12:48:00 EST 2020 Alcohol, Ethyl DNR mg/dL Fri Fe b 28 12:48:00 EST 2020 Confirmation Testing Performed at: DNR Fri Feb 28 12:48:00 EST 2020 COMMENT Fri Feb 28 12 :48:00 EST 2020 Marijuana Metabolite 20 NEGATIVE ng/mL Fri Feb 28 12:48:00 EST 2020 Marijuana Metabolite DNR ng/mL Fri Feb 28 12:48:00 EST 2020 Confirmation Testing Performed at: DNR Fri Feb 28 12:48:00 EST 2020 COMMENT Fri Feb 28 12 :48:00 EST 2020 Opiates NEGATIVE ng/mL Fri Feb 2 8 12:48:00 EST 2020 Codeine DNR ng/mL Fri Feb 28 12 :48:00 EST 2020 Hydrocodone DNR ng/mL Fri Feb 2 8 12:48:00 EST 2020 Hydromorphone DNR ng/mL Fri Feb 28 12:48:00 EST 2020 Morphine DNR ng/mL Fri Feb 28 1 2:48:00 EST 2020 Norhydrocodone DNR ng/mL Fri Fe b 28 12:48:00 EST 2020 Confirmation Testing Performed at: DNR Fri Feb 28 12:48:00 EST 2020 COMMENT Fri Feb 28 12 :48:00 EST 2020 Buprenorphine Fri Feb 28 12:48:00 EST 2020 Norbuprenorphine Fri Feb 28 12:48:00 EST 2020 CREATININE, RANDOM URINE 30 mg/dL SatAug 22 14:55:00 EDT 2020 Benzodiazepines NEGATIVE ng/mL S un Aug 22 14:55:00 EDT 2020 Alphahydroxyalprazolam DNR ng/mL Sun Mar 15 14:55:00 EDT 2020 Alphahydroxymidazolam DNR ng/mL Sun Mar 15 14:55:00 EDT 2020 Alphahydroxytriazolam DNR ng/mL Sun Mar 15 14:55:00 EDT 2020 Aminoclonazepam DNR ng/mL Sun M ar 15 14:55:00 EDT 2020 Hydroxyethylflurazepam DNR ng/mL Sun Mar 15 14:55:00 EDT 2020 Lorazepam DNR ng/mL Sun Mar 15 14:55:00 EDT 2020 Nordiazepam DNR ng/mL Sun Mar 1 5 14:55:00 EDT 2020 Oxazepam DNR ng/mL Sun Mar 15 1 4:55:00 EDT 2020 Temazepam DNR ng/mL Sun Mar 15 14:55:00 EDT 2020 Confirmation Testing Performed at: DNR Sun Mar 15 14:55:00 EDT 2020 COMMENT Sun Mar 15 14 :55:00 EDT 2020 Cocaine Metabolite NEGATIVE ng/mL Sun Mar 15 14:55:00 EDT 2020 Benzoylecgonine DNR ng/mL Sun M ar 15 14:55:00 EDT 2020 Confirmation Testing Performed at: DNR Sun Mar 15 14:55:00 EDT 2020 COMMENT Sun Mar 15 14 :55:00 EDT 2020 Alcohol, Ethyl NEGATIVE mg/dL [place] Mar 15 14:55:00 EDT 2020 Alcohol, Ethyl DNR mg/dL Sun Ma r 15 14:55:00 EDT 2020 Confirmation Testing Performed at: DNR Sun Mar 15 14:55:00 EDT 2020 COMMENT Sun Mar 15 14 :55:00 EDT 2020 Marijuana Metabolite 20 NEGATIVE ng/mL Sun Mar 15 14:55:00 EDT 2020 Marijuana Metabolite DNR ng/mL Sun Mar 15 14:55:00 EDT 2020 Confirmation Testing Performed at: DNR Sun Mar 15 14:55:00 EDT 2020 COMMENT Sun Mar 15 14 :55:00 EDT 2020 Opiates NEGATIVE ng/mL Sun Mar 1 5 14:55:00 EDT 2020 Codeine DNR ng/mL Sun Mar 15 14 :55:00 EDT 2020 Hydrocodone DNR ng/mL Sun Mar 1 5 14:55:00 EDT 2020 Hydromorphone DNR ng/mL Sun Mar 15 14:55:00 EDT 2020 Morphine DNR ng/mL Sun Mar 15 1 4:55:00 EDT 2020 Norhydrocodone DNR ng/mL Sun Ma r 15 14:55:00 EDT 2020 Confirmation Testing Performed at: DNR Sun Mar 15 14:55:00 EDT 2020 COMMENT Sun Mar 15 14 :55:00 EDT 2020 Buprenorphine 58 ng/mL Sun Mar 15 14:55:00 EDT 2019 Norbuprenorphine 120 ng/mL Sun Mar 15 14:55:00 EDT 2019 COMMENT Sun Mar 15 14 :55:00 EDT 2020 CREATININE, RANDOM URINE 30 mg/dL Sat Mar 21 12:48:00 EDT 2020 Benzodiazepines NEGATIVE ng/mL S at Mar 21 12:48:00 EDT 2019 Alphahydroxyalprazolam DNR ng/mL Sat Mar 21 12:48:00 EDT 2019 Alphahydroxymidazolam DNR ng/mL Sat Aug 21 12:48:00 EDT 2019 Alphahydroxytriazolam DNR ng/mL Sat Mar 21 12:48:00 EDT 2019 Aminoclonazepam DNR ng/mL Sat M ar 21 12:48:00 EDT 2019 Hydroxyethylflurazepam DNR ng/mL Sat Aug 28 12:48:00 EDT 2019 Lorazepam DNR ng/mL Sat Mar 21 12:48:00 EDT 2020 Nordiazepam DNR ng/mL Sat Mar 2 1 12:48:00 EDT 2020 Oxazepam DNR ng/mL Sat Aug 21 1 2:48:00 EDT 2019 Temazepam DNR ng/mL Sat Aug 21 12:48:00 EDT 2019 Confirmation Testing Performed at: DNR Sat Mar 21 12:48:00 EDT 2019 COMMENT Sat Aug 21 12 :48:00 EDT 2019 Cocaine Metabolite NEGATIVE ng/mL Sat Mar 21 12:48:00 EDT 2020 Benzoylecgonine DNR ng/mL Sat M ar 21 12:48:00 EDT 2020 Confirmation Testing Performed at: DNR Sat Mar 21 12:48:00 EDT 2020 COMMENT Sat Mar 21 12 :48:00 EDT 2020 Alcohol, Ethyl NEGATIVE mg/dL Sa t Mar 21 12:48:00 EDT 2020 Alcohol, Ethyl DNR mg/dL Sat Ma r 21 12:48:00 EDT 2020 Confirmation Testing Performed at: DNR Sat Mar 21 12:48:00 EDT 2019 COMMENT Sat Mar 21 12 :48:00 EDT 2020 Marijuana Metabolite 20 NEGATIVE ng/mL Sat Mar 21 12:48:00 EDT 2019 Marijuana Metabolite DNR ng/mL Sat Aug 21 12:48:00 EDT 2020 Confirmation Testing Performed at: DNR Sat Aug 21 12:48:00 EDT 2019 COMMENT Sat Aug 21 12 :48:00 EDT 2019 Opiates NEGATIVE ng/mL Sat Mar 2 1 12:48:00 EDT 2019 Codeine DNR ng/mL Sat Mar 21 12 :48:00 EDT 2019 Hydrocodone DNR ng/mL Sat Mar 2 1 12:48:00 EDT 2019 Hydromorphone DNR ng/mL Sat Mar 21 12:48:00 EDT 2019 Morphine DNR ng/mL Sat Mar 21 1 2:48:00 EDT 2020 Norhydrocodone DNR ng/mL Sat Ma r 21 12:48:00 EDT 2020 Confirmation Testing Performed at: DNR Sat Aug 21 12:48:00 EDT 2019 COMMENT Sat Aug 21 12 :48:00 EDT 2019 Buprenorphine 101 ng/mL Sat Aug 21 12:48:00 EDT 2019 Norbuprenorphine 158 ng/mL Sat Aug 21 12:48:00 EDT 2019 COMMENT Sat Aug 21 12 :48:00 EDT 2019 CREATININE, RANDOM URINE 59 mg/dL Jie Sep 02 11:27:00 EDT 2020 Benzodiazepines NEGATIVE ng/mL T hu Sep 02 11:27:00 EDT 2019 Alphahydroxyalprazolam DNR ng/mL Jie Sep 02 11:27:00 EDT 2019 Alphahydroxymidazolam DNR ng/mL Jie Sep 02 11:27:00 EDT 2019 Alphahydroxytriazolam DNR ng/mL Jie Sep 02 11:27:00 EDT 2019 Aminoclonazepam DNR ng/mL Jie M 11:27:00 EDT 2019 Hydroxyethylflurazepam DNR ng/mL Jie Sep 02 11:27:00 EDT 2020 Lorazepam DNR ng/mL Jie Sep 02 11:27:00 EDT 2020 Nordiazepam DNR ng/mL Jie Aug 2 6 11:27:00 EDT 2020 Oxazepam DNR ng/mL Jie Aug 26 1 1:27:00 EDT 2020 Temazepam DNR ng/mL Jie Sep 02 11:27:00 EDT 2019 Confirmation Testing Performed at: DNR Jie Sep 02 11:27:00 EDT 2019 COMMENT Jie Sep 02 11 :27:00 EDT 2020 Cocaine Metabolite NEGATIVE ng/mL Jie Sep 02 11:27:00 EDT 2019 Benzoylecgonine DNR ng/mL Jie M ar 11:27:00 EDT 2020 Confirmation Testing Performed at: DNR Jie Sep 02 11:27:00 EDT 2019 COMMENT Jie Sep 02 11 :27:00 EDT 2019 Alcohol, Ethyl NEGATIVE mg/dL Th u Mar 11:27:00 EDT 2019 Alcohol, Ethyl DNR mg/dL Jie Ma r 26 11:27:00 EDT 2020 Confirmation Testing Performed at: DNR Jie Sep 02 11:27:00 EDT 2019 COMMENT Jie Sep 02 11 :27:00 EDT 2019 Marijuana Metabolite 20 NEGATIVE ng/mL Jie Sep 02 11:27:00 EDT 2019 Marijuana Metabolite DNR ng/mL Jie Sep 02 11:27:00 EDT 2019 Confirmation Testing Performed at: DNR Jie Sep 02 11:27:00 EDT 2019 COMMENT Jie Sep 02 11 :27:00 EDT 2019 Opiates NEGATIVE ng/mL Jie Mar 2 6 11:27:00 EDT 2019 Codeine DNR ng/mL Jie Sep 02 11 :27:00 EDT 2020 Hydrocodone DNR ng/mL Jie Mar 2 6 11:27:00 EDT 2019 Hydromorphone DNR ng/mL Jie Sep 02 11:27:00 EDT 2019 Morphine DNR ng/mL Jie Sep 02 1 1:27:00 EDT 2019 Norhydrocodone DNR ng/mL Jie Ma r 11:27:00 EDT 2019 Confirmation Testing Performed at: DNR Jie Sep 02 11:27:00 EDT 2019 COMMENT Jie Sep 02 11 :27:00 EDT 2020 Buprenorphine Jie Sep 02 11:27:00 EDT 2020 Norbuprenorphine Jie Sep 02 11:27:00 EDT 2020 CREATININE, RANDOM URINE 15 mg/dL SatSep 17 01:48:00 EDT 2019 Fentanyl NEGATIVE ng/mL SatSep 17 01:48:00 EDT 2020 Norfentanyl NEGATIVE ng/mL Fri A pr 01:48:00 EDT 2019 COMMENT SatSep 17 01 :48:00 EDT 2019 Benzodiazepines NEGATIVE ng/mL F ri Sep 17 01:48:00 EDT 2020 Alphahydroxyalprazolam DNR ng/mL SatSep 17:48:00 EDT 2019 Alphahydroxymidazolam DNR ng/mL SatSep 17:48:00 EDT 2019 Alphahydroxytriazolam DNR ng/mL SatSep 17:48:00 EDT 2019 Aminoclonazepam DNR ng/mL Fri A pr 10 :48:00 EDT 2020 Hydroxyethylflurazepam DNR ng/mL SatSep 17:48:00 EDT 2019 Lorazepam DNR ng/mL SatSep 17:48:00 EDT 2019 Nordiazepam DNR ng/mL Sat Apr 1 0 01:48:00 EDT 2019 Oxazepam DNR ng/mL SatSep 17 0 1:48:00 EDT 2019 Temazepam DNR ng/mL SatSep 17:48:00 EDT 2019 Confirmation Testing Performed at: DNR SatSep 17 01:48:00 EDT 2019 COMMENT SatSep 17 01 :48:00 EDT 2019 Cocaine Metabolite NEGATIVE ng/mL SatSep 17 01:48:00 EDT 2019 Benzoylecgonine DNR ng/mL Sat A pr 10 01:48:00 EDT 2019 Confirmation Testing Performed at: DNR SatSep 17 01:48:00 EDT 2019 COMMENT SatSep 17 01 :48:00 EDT 2019 Alcohol, Ethyl NEGATIVE mg/dL Fr i Apr 01:48:00 EDT 2019 Alcohol, Ethyl DNR mg/dL Fri Ap r 10 01:48:00 EDT 2019 Confirmation Testing Performed at: DNR SatSep 17 01:48:00 EDT 2019 COMMENT SatSep 17 01 :48:00 EDT 2019 Marijuana Metabolite 20 NEGATIVE ng/mL SatSep 17 01:48:00 EDT 2019 Marijuana Metabolite DNR ng/mL SatSep 17 01:48:00 EDT 2019 Confirmation Testing Performed at: DNR SatSep 17:48:00 EDT 2019 COMMENT SatSep 17 01 :48:00 EDT 2019 Opiates NEGATIVE ng/mL Sat 1 0 01:48:00 EDT 2019 Codeine DNR ng/mL SatSep 17 01 :48:00 EDT 2019 Hydrocodone DNR ng/mL Sat 1 0 01:48:00 EDT 2019 Hydromorphone DNR ng/mL SatSep 17 01:48:00 EDT 2019 Morphine DNR ng/mL Fri Apr 10 0 1:48:00 EDT 2019 Norhydrocodone DNR ng/mL Fri Ap r 10 01:48:00 EDT 2019 Confirmation Testing Performed at: DNR SatSep 17 01:48:00 EDT 2019 COMMENT SatSep 17 01 :48:00 EDT 2019 Buprenorphine 18 ng/mL SatSep 17 01:48:00 EDT 2019 Norbuprenorphine 31 ng/mL SatSep 17 01:48:00 EDT 2019 COMMENT SatSep 17 01 :48:00 EDT 2019 CREATININE, RANDOM URINE 31 mg/dL SatOct 01 02:02:00 EDT 2019 Benzodiazepines NEGATIVE ng/mL F Oct 01 02:02:00 EDT 2019 Alphahydroxyalprazolam DNR ng/mL SatOct 01 02:02:00 EDT 2019 Alphahydroxymidazolam DNR ng/mL SatOct 01 02:02:00 EDT 2019 Alphahydroxytriazolam DNR ng/mL SatOct 01 02:02:00 EDT 2019 Aminoclonazepam DNR ng/mL Sat 02:02:00 EDT 2019 Hydroxyethylflurazepam DNR ng/mL SatOct 01 02:02:00 EDT 2019 Lorazepam DNR ng/mL SatOct 01 02:02:00 EDT 2019 Nordiazepam DNR ng/mL SatSep 09 4 02:02:00 EDT 2019 Oxazepam DNR ng/mL SatOct 01 0 2:02:00 EDT 2019 Temazepam DNR ng/mL SatOct 01 02:02:00 EDT 2019 Confirmation Testing Performed at: DNR SatOct 01 02:02:00 EDT 2019 COMMENT SatOct 01 02 :02:00 EDT 2019 Cocaine Metabolite NEGATIVE ng/mL SatOct 01 02:02:00 EDT 2019 Benzoylecgonine DNR ng/mL Sat pr 02:02:00 EDT 2019 Confirmation Testing Performed at: DNR SatOct 01 02:02:00 EDT 2019 COMMENT SatOct 01 02 :02:00 EDT 2019 Alcohol, Ethyl NEGATIVE mg/dL Fr i Oct 01 02:02:00 EDT 2019 Alcohol, Ethyl DNR mg/dL Fri Ap r 24 02:02:00 EDT 2019 Confirmation Testing Performed at: DNR SatOct 01 02:02:00 EDT 2019 COMMENT SatOct 01 02 :02:00 EDT 2019 Marijuana Metabolite 20 NEGATIVE ng/mL SatOct 01 02:02:00 ED2019 Marijuana Metabolite DNR ng/mL SatOct 01 02:02:00 EDT 2019 Confirmation Testing Performed at: DNR SatOct 01 02:02:00 EDT 2019 COMMENT SatOct 01 02 :02:00 ED2019 Opiates NEGATIVE ng/mL SatSep 09 02:02:00 EDT 2019 Codeine DNR ng/mL SatOct 01 02 :02:00 ED2019 Hydrocodone DNR ng/mL SatSep 09 4 02:02:00 ED2019 Hydromorphone DNR ng/mL SatOct 01 02:02:00 EDT 2019 Morphine DNR ng/mL SatOct 01 0 2:02:00 EDT 2019 Norhydrocodone DNR ng/mL Sat 02:02:00 ED2019 Confirmation Testing Performed at: DNR SatOct 01 02:02:00 EDT 2019 COMMENT SatOct 01 02 :02:00 EDT 2019 Buprenorphine 48 ng/mL SatOct 01 02:02:00 ED2019 Norbuprenorphine 129 ng/mL SatOct 01 02:02:00 EDT 2019 COMMENT SatOct 01 02 :02:00 EDT 2019 Creatinine 92.2NORMALNORMAL mg/d L SatOctober 15 15:17:08 EDT 2019 pH 5.3NORMALNORMAL SatOctober 15 15:17:08 EDT 2019 Oxidants -7.00NegativeNegative m cg/mL SatOctober 15 15:17:08 EDT 2019 Validity Result VALIDVALIDVALID SatOctober 16 15:29:21 EDT 2020 Amphetamines 509.00PRESUMPTIVE P OSITIVEPRESUMPTIVE POSITIVE ng/mL SatOctober 15 15:17:07 EDT 2020 Barbiturates 11.00NegativeNegative* ng/mL SatOctober 15 15:17:08 EDT 2020 Benzodiazepines -11.00Negative *Negative ng/mL SatOctober 15 15:17:08 EDT 2019 Buprenorphine 105.10PRESUMPTIVE POSITIVEPRESUMPTIVE POSITIVE ng/mL SatOctober 15 15:17:08 EDT 2020 Cocaine Metabolites 15.00Negativ eNegative ng/mL SatOctober 15 15:17:08 EDT 2020 Cotinine 1323.00PRESUMPTIVE POSI TIVEPRESUMPTIVE POSITIVE ng/mL SatOctober 15 15:17:08 EDT 2020 EDDP -121.00NegativeNegative ng/ mL SatOctober 15 15:17:08 EDT 2020 Ethyl Glucuronide 177.00Negative Negative ng/mL SatOctober 15 15:17:08 EDT 2020 Ethyl Alcohol -2.00NegativeNegative mg/dL SatOctober 15 15:17:08 EDT 2020 Fentanyl 1.500PRESUMPTIVE POSITI VEPRESUMPTIVE POSITIVE ng/mL SatOctober 15 15:17:08 EDT 2020 Heroin (6-AM) 0.30NegativeNegative* ng/mL SatOctober 15 15:17:09 EDT 2020 K2-3 -0.20NegativeNegative ng/mL SatOctober 15 15:17:09 EDT 2020 Methadone -33.00NegativeNegative ng/mL SatOctober 15 15:17:09 EDT 2020 Opiates -31.00NegativeNegative n g/mL SatOctober 15 15:17:09 EDT 2020 Synthetic Opiates -18.00Negative Negative ng/mL SatOctober 15 15:17:09 EDT 2020 Phencyclidine 6.70NegativeNegative* ng/mL SatOctober 15 15:17:09 EDT 2020 Cannabinoids -12.20NegativeNegative ng/mL SatOctober 15 15:17:09 EDT 2020 Tramadol 16.00NegativeNegative n g/mL SatOctober 15 15:17:10 EDT 2020 Tricyclics 523.00PRESUMPTIVE POS ITIVEPRESUMPTIVE POSITIVE ng/mL SatOctober 15 15:17:10 EDT 2020 Ecstasy (MDMA) 94.00NegativeNegativ e ng/mL SatOctober 15 15:17:10 EDT 2020 Buprenorphine 250Positive - Cons istentPOSITIVE> ng/mL SatOctober 16 14:39:04 EDT 2020 Norbuprenorphine 393.530Positive - ConsistentPOSITIVE ng/mL SatOctober 16 14:39:04 EDT 2020 Naloxone 834.520Positive - Incon sistentPOSITIVE ng/mL SatOctober 16 14:39:04 EDT 2020 Norfentanyl 0.210NegativeNegative * ng/mL SatOctober 16 14:39:04 EDT 2020 Fentanyl 0.100NegativeNegative n g/mL SatOctober 16 14:39:04 EDT 2020 Carfentanil 0.020NegativeNegative * ng/mL SatOctober 16 14:39:04 EDT 2020 Norcarfentanil 0.230NegativeNegativ e ng/mL SatOctober 16 14:39:04 EDT 2020 Sufentanil 0.160NegativeNegative ng/mL SatOctober 16 14:39:04 EDT 2020 Methamphetamine 6.710Negative Negative ng/mL SatOctober 16 14:39:04 EDT 2020 Amphetamine 0.000NegativeNegative * ng/mL SatOctober 16 14:39:04 EDT 2020 Desmethyldoxepin 1.090Negative *Negative ng/mL SatOctober 16 14:39:05 EDT 2020 Doxepin 8.060NegativeNegative ng /mL SatOctober 16 14:39:05 EDT 2020 Imipramine 6.300NegativeNegative ng/mL SatOctober 16 14:39:05 EDT 2020 Nortriptyline 5.360NegativeNegative ng/mL SatOctober 16 14:39:05 EDT 2020 Amitriptyline 11.540NegativeNegativ e ng/mL SatOctober 16 14:39:05 EDT 2020 Clomipramine 8.540NegativeNegative* ng/mL Sat October 16 14:39:05 EDT 2020 Desipramine 5.480NegativeNegative * ng/mL SatOctober 16 14:39:06 EDT 2020 Creatinine 204.1NORMALNORMAL mg/ dL Jie Feb 03 14:38:10 EDT 2020 pH 6.3NORMALNORMAL Jie Feb 03 14:38:32 EDT 2020 Oxidants -17.00NegativeNegative mcg/mL [facility] Feb 03 14:36:48 EDT 2020 Validity Result VALIDVALIDVALID Jie Feb 03 14:45:22 EDT 2020 Amphetamines 209.00NegativeNegative ng/mL [facility] Feb 03 14:33:53 EDT 2020 Barbiturates -15.00NegativeNegative ng/mL [facility] Feb 03 14:34:12 EDT 2020 Benzodiazepines -31.00Negative *Negative ng/mL [facility] Feb 03 14:34:21 EDT 2020 Buprenorphine 0.80NegativeNegative* ng/mL [facility] Feb 03 14:34:27 EDT 2020 Cocaine Metabolites 175.00Negati veNegative ng/mL [facility] Feb 03 14:35:00 EDT 2020 Cotinine 1671.00PRESUMPTIVE POSI TIVEPRESUMPTIVE POSITIVE ng/mL [facility] Feb 03 14:35:07 EDT 2020 EDDP -91.00NegativeNegative ng/m L [facility] Feb 03 14:35:14 EDT 2020 Ethyl Glucuronide 26.00Negative* Negative ng/mL [facility] Feb 03 14:35:21 EDT 2020 Ethyl Alcohol 7.00NegativeNegative* mg/dL [facility] Feb 03 14:35:46 EDT 2020 Fentanyl 0.100NegativeNegative n g/mL Jie Feb 03 14:35:53 EDT 2020 Heroin (6-AM) -1.30NegativeNegative ng/mL [facility] Feb 03 14:35:59 EDT 2019 Methadone -37.00NegativeNegative ng/mL [facility] Feb 03 14:36:13 EDT 2020 Opiates -32.00NegativeNegative n g/mL Jie Feb 03 14:36:28 ED2019 Synthetic Opiates -13.00Negative Negative ng/mL [facility] Feb 03 14:37:06 EDT 2020 Phencyclidine -4.90NegativeNegative ng/mL [facility] Feb 03 14:37:16 ED2019 Cannabinoids 7.80NegativeNegative * ng/mL [facility] Feb 03 14:37:27 2020 Tramadol -18.00NegativeNegative ng/mL [facility] Feb 03 14:37:51 2019 Tricyclics 16.00NegativeNegative ng/mL [facility] Feb 03 14:38:40 ED2019 Ecstasy (MDMA) -1.00NegativeNegativ e ng/mL SatFeb 03 14:38:49 2019 Buprenorphine 0.000Negative - In consistentNegative ng/mL SatFeb 04 11:55:39 2019 Norbuprenorphine 0.620Negative - InconsistentNegative ng/mL SatFeb 04 11:55:39 2019 Naloxone 0.000Negative - Inconsi stentNegative ng/mL SatFeb 04 11:55:39 ED2019 Creatinine 30.8NORMALNORMAL mg/d L SatApr 14 20:51:41 2019 pH 8.2NORMALNORMAL SatApr 14 20:51:41 2019 Oxidants -14.00NegativeNegative mcg/mL SatApr 14 20:51:41 2019 Validity Result VALIDVALIDVALID SatApr 14 21:00:28 2019 Amphetamines 62.00NegativeNegative* ng/mL Jie Apr 14:51:2019 Barbiturates 0.00NegativeNegative * ng/mL Jie Apr 14:51:2019 Benzodiazepines -3.00Negative Negative ng/mL SatApr 14:51:2019 Buprenorphine 43.40PRESUMPTIVE P OSITIVEPRESUMPTIVE POSITIVE ng/mL Jie Apr 14:51:2019 Cocaine Metabolites 7.00Negative Negative ng/mL SatApr 14:51:2019 Cotinine 763.00PRESUMPTIVE POSIT CHIARAPRESUMPTIVE POSITIVE ng/mL SatApr 14:2019 EDDP -34.00NegativeNegative ng/m L SatApr 14::2019 Ethyl Glucuronide -12.00Negative Negative ng/mL SatApr 14:51:2019 Ethyl Alcohol 1.00NegativeNegative* mg/dL SatApr 1451:2019 Fentanyl 0.300NegativeNegative n g/mL SatApr 14:2019 Heroin (6-AM) 1.10NegativeNegative* ng/mL SatApr 1451:2019 Methadone -11.00NegativeNegative ng/mL SatApr 14:51:2019 Opiates 0.00NegativeNegative ng/ mL Jie Apr 14:51:2019 Synthetic Opiates -16.00Negative Negative ng/mL Jie Apr 14:51:41 2019 Phencyclidine 11.70NegativeNegative ng/mL Jie Apr 14:51:41 2019 Cannabinoids -5.40NegativeNegative* ng/mL Jie Apr 14:51:41 2019 Tramadol 14.00NegativeNegative n g/mL SatApr 14 20:51:41 2019 Tricyclics 456.00NegativeNegative * ng/mL Jie Apr 14 20:51:41 2019 Ecstasy (MDMA) 6.00NegativeNegative ng/mL Jie Apr 14 20:51:41 2019 Buprenorphine 28.240Positive - C onsistentPOSITIVE ng/mL Sat Apr 16 14:02:52 2019 Norbuprenorphine 75.050Positive - ConsistentPOSITIVE ng/mL Sat Apr 16 14:02:52 2019 Naloxone 33.950Positive - Consis tentPOSITIVE ng/mL Sat Apr 16 14:02:52 2019 Creatinine 173.1NORMALNORMAL mg/ dL SatMay 18 17:21:07 2019 pH 6.0NORMALNORMAL SatMay 18 17:21:07 2019 Oxidants -17.00NegativeNegative mcg/mL SatMay 18 17:21:07 2019 Validity Result VALIDVALIDVALID SatMay 18 17:30:06 2019 Amphetamines 449.00NegativeNegative ng/mL SatMay 18 17:21:04 2019 Barbiturates 41.00NegativeNegative* ng/mL SatMay 18 17:21:04 2019 Benzodiazepines 14.00Negative Negative ng/mL SatMay 18 17:21:04 2019 Buprenorphine 121.90PRESUMPTIVE POSITIVEPRESUMPTIVE POSITIVE ng/mL SatMay 18 17:21:25 2019 Cocaine Metabolites -16.00Negati veNegative ng/mL SatMay 18 17:21:04 2019 Cotinine 988.00PRESUMPTIVE POSIT CHIARAPRESUMPTIVE POSITIVE ng/mL SatMay 18 17:21:37 2019 EDDP -145.00NegativeNegative ng/ mL SatMay 18 17:21:05 2019 Ethyl Glucuronide 42.00Negative* Negative ng/mL SatMay 18 20:44:07 2019 Ethyl Alcohol -3.00NegativeNegative mg/dL SatMay 18 17:21:06 2019 Fentanyl 0.500NegativeNegative n g/mL SatMay 18:21:06 2019 Heroin (6-AM) 2.80NegativeNegative* ng/mL SatMay 18:21:06 2019 Methadone -15.00NegativeNegative ng/mL SatMay 18:21:06 2019 Opiates -36.00NegativeNegative n g/mL SatMay 18 17:21:06 2019 Synthetic Opiates -17.00Negative Negative ng/mL SatMay 18 17:21:06 2019 Phencyclidine 23.00NegativeNegative ng/mL SatMay 18 17:21:06 2019 Cannabinoids -16.40NegativeNegative ng/mL SatMay 18 17:21:06 2019 Tramadol 37.00NegativeNegative n g/mL SatMay 18 17:21:06 2019 Tricyclics 594.00PRESUMPTIVE POS ITIVEPRESUMPTIVE POSITIVE ng/mL SatMay 18 17:21:36 2019 Ecstasy (MDMA) 79.00NegativeNegativ e ng/mL SatMay 18 17:21:07 2019 Buprenorphine 250Positive - Cons istentPOSITIVE> ng/mL Jie May 19 16:33:47 2019 Norbuprenorphine 500Positive - C onsistentPOSITIVE> ng/mL Jie May 19 16:33:47 2019 Naloxone 553.950Positive - Consi stentPOSITIVE ng/mL Jie May 19 16:33:47 2019 Desmethyldoxepin 0.000Negative *Negative ng/mL Jie May 19 16:33:47 2019 Doxepin 4.240NegativeNegative ng /mL Jie May 19 16:33:47 2019 Imipramine 1.960NegativeNegative ng/mL Jie May 19 16:33:47 2019 Nortriptyline 3.020NegativeNegative ng/mL Jie May 19 16:33:47 2019 Amitriptyline 2.100NegativeNegative ng/mL Jie May 19 16:33:47 2019 Clomipramine 37.370NegativeNegative ng/mL Jie May 19 16:33:47 2019 Desipramine 0.000NegativeNegative * ng/mL Jie May 19 16:33:47 2019 Creatinine 162.1NORMALNORMAL mg/ dL SatMay 31 20:14:48 2019 pH 6.9NORMALNORMAL SatMay 31 20:14:24 2019 Oxidants -16.00NegativeNegative mcg/mL SatMay 31 20:14:24 2019 Validity Result VALIDVALIDVALID SatMay 31 20:15:05 2019 Amphetamines 352.00NegativeNegative ng/mL SatMay 31 20:14:18 2019 Barbiturates 9.00NegativeNegative * ng/mL SatMay 31 20:14:18 2019 Benzodiazepines 44.00Negative Negative ng/mL SatMay 31 20:14:41 2019 Buprenorphine 122.40PRESUMPTIVE POSITIVEPRESUMPTIVE POSITIVE ng/mL SatMay 31 20:15:34 2019 Cocaine Metabolites -9.00Negativ eNegative ng/mL SatMay 31 20:14:42 2019 Cotinine 1193.00PRESUMPTIVE POSI TIVEPRESUMPTIVE POSITIVE ng/mL SatMay 31 20:15:52 2019 EDDP -58.00NegativeNegative ng/m L SatMay 31 20:14:43 2019 Ethyl Glucuronide 408.00Negative Negative ng/mL SatMay 31 20:14:44 2019 Ethyl Alcohol 16.00NegativeNegative mg/dL SatMay 31 20:14:20 2019 Fentanyl 1.700PRESUMPTIVE POSITI VEPRESUMPTIVE POSITIVE ng/mL SatMay 31 20:15:46 2019 Heroin (6-AM) 3.00NegativeNegative* ng/mL SatMay 31 20:14:45 2019 Methadone -13.00NegativeNegative ng/mL SatMay 31 20:14:21 2019 Opiates -16.00NegativeNegative n g/mL SatMay 31 20:14:21 2019 Synthetic Opiates -23.00Negative Negative ng/mL SatMay 31 20:14:21 2019 Phencyclidine 22.10NegativeNegative ng/mL SatMay 31 20:14:46 2019 Cannabinoids -14.10NegativeNegative ng/mL SatMay 31 20:14:22 2019 Tramadol 34.00NegativeNegative n g/mL SatMay 31 20:14:22 2019 Tricyclics 688.00PRESUMPTIVE POS ITIVEPRESUMPTIVE POSITIVE ng/mL SatMay 31 20:15:40 2019 Ecstasy (MDMA) 82.00NegativeNegativ e ng/mL SatMay 31:14:23 2019 Buprenorphine 250Positive - Cons istentPOSITIVE> ng/mL Jie Jun 02 08:20:16 2019 Norbuprenorphine 494.990Positive - ConsistentPOSITIVE ng/mL Jie Jun 02 08:20:16 2019 Naloxone 647.270Positive - Incon sistentPOSITIVE ng/mL SatJun 02 08:20:16 2019 Norfentanyl 0.280NegativeNegative * ng/mL SatJun 02 08:20:16 2019 Fentanyl 0.060NegativeNegative n g/mL SatJun 02 08:20:16 2019 Carfentanil 0.000NegativeNegative * ng/mL SatJun 02 08:20:16 2019 Norcarfentanil 0.120NegativeNegativ e ng/mL SatJun 02 08:20:16 2019 Sufentanil 0.080NegativeNegative ng/mL SatJun 02 08:20:16 2019 Desmethyldoxepin 0.000Negative *Negative ng/mL SatJun 02 08:20:16 2019 Doxepin 4.360NegativeNegative ng /mL SatJun 02 08:20:16 2019 Imipramine 5.420NegativeNegative ng/mL SatJun 02 08:20:16 2019 Nortriptyline 0.360NegativeNegative ng/mL SatJun 02 08:20:16 2019 Amitriptyline 0.000NegativeNegative ng/mL SatJun 02 08:20:16 2019 Clomipramine 10.470NegativeNegative ng/mL SatJun 02 08:20:16 2019 Desipramine 0.000NegativeNegative * ng/mL SatJun 02 08:20:16 2019 Aripiprazole 0.000NegativeNegative* ng/mL SatJun 04 13:42:09 2019 Chlorpromazine 0.000NegativeNegativ e ng/mL SatJun 04 13:42:09 2019 Clozapine 0.000NegativeNegative ng/mL SatJun 04 13:42:09 2019 Fluphenazine 0.070NegativeNegative* ng/mL SatJun 04 13:42:09 2019 Haloperidol 0.000NegativeNegative * ng/mL SatJun 04 13:42:10 2019 Lurasidone 0.230NegativeNegative ng/mL SatJun 04 13:42:10 2019 Olanzapine 0.120NegativeNegative ng/mL SatJun 04 13:42:10 2019 Promethazine 0.000NegativeNegative* ng/mL SatJun 04 13:42:10 2019 Quetiapine 50Positive - Consiste ntPOSITIVE> ng/mL SatJun 04 13:42:11 2019 Risperidone 0.000NegativeNegative * ng/mL SatJun 04 13:42:11 2019 Trifluoperazine 0.250Negative Negative ng/mL SatJun 04 13:42:11 2019 Ziprasidone 0.000NegativeNegative * ng/mL SatJun 04 13:42:11 2019 Bupropion 50Positive - Consisten tPOSITIVE> ng/mL SatJun 04 13:42:11 2019 Hydroxybupropion 50Positive - Co nsistentPOSITIVE> ng/mL SatJun 04 13:42:11 2019 Trazodone 50Positive - Consisten tPOSITIVE> ng/mL SatJun 04 13:42:11 2019 mCPP 50Positive - Consistent *POSITIVE> ng/mL SatJun 04 13:42:11 2019 Creatinine 153.7NORMALNORMAL mg/ dL SatJul 12 19:41:14 2020 pH 7.4NORMALNORMAL SatJul 12 19:41:14 2020 Oxidants -11.00NegativeNegative mcg/mL SatJul 12 19:41:14 2020 Validity Result VALIDVALIDVALID SatJul 12 19:45:21 EST 2020 Amphetamines 299.00NegativeNegative ng/mL e Jul 12 19:41:14 2020 Barbiturates -2.00NegativeNegative* ng/mL e Jul 12 19:41:14 EST 2020 Benzodiazepines 3.00NegativeNegativ e ng/mL e Jul 12 19:41:14 EST 2020 Buprenorphine 111.10PRESUMPTIVE POSITIVEPRESUMPTIVE POSITIVE ng/mL e Jul 12 19:41:14 2020 Cocaine Metabolites -28.00Negati veNegative ng/mL SatJul 12 19:41:14 2020 Cotinine 649.00PRESUMPTIVE POSIT CHIARAPRESUMPTIVE POSITIVE ng/mL SatJul 12 19:41:14 2020 EDDP -97.00NegativeNegative ng/m L e Jul 12 19:41:14 2020 Ethyl Glucuronide 151.00Negative Negative ng/mL SatJul 12 19:41:14 2020 Ethyl Alcohol 0.00NegativeNegative* mg/dL SatJul 12 19:41:14 2020 Fentanyl 1.100PRESUMPTIVE POSITI VEPRESUMPTIVE POSITIVE ng/mL SatJul 12 19:41:14 2020 Heroin (6-AM) -0.10NegativeNegative ng/mL e Jul 12 19:41:15 2020 Methadone -10.00NegativeNegative ng/mL e Jul 12 19:41:15 2020 Opiates -28.00NegativeNegative n g/mL e Jul 12 19:41:15 2020 Synthetic Opiates -24.00Negative Negative ng/mL e Jul 12 19:41:15 2020 Phencyclidine 1.30NegativeNegative* ng/mL [facility] Jul 12 19:41:15 EST 2020 Cannabinoids -5.60NegativeNegative* ng/mL [facility] Jul 12 19:41:15 2020 Tramadol 42.00NegativeNegative n g/mL [facility] Jul 12 19:41:15 2020 Tricyclics 547.00PRESUMPTIVE POS ITIVEPRESUMPTIVE POSITIVE ng/mL [facility] Jul 12 19:41:15 2020 Ecstasy (MDMA) 50.00NegativeNegativ e ng/mL [facility] Jul 12 19:41:16 2020 Buprenorphine 216.190Positive - ConsistentPOSITIVE ng/mL [facility] Jul 13 11:17:06 2020 Norbuprenorphine 476.890Positive - ConsistentPOSITIVE ng/mL [facility] Jul 13 11:17:06 EST 2020 Naloxone 629.130Positive - Incon sistentPOSITIVE ng/mL [facility] Jul 13 11:17:06 2020 Norfentanyl 0.610NegativeNegative * ng/mL [facility] Jul 13 11:17:06 2020 Fentanyl 0.040NegativeNegative n g/mL [facility] Jul 13 11:17:06 2020 Carfentanil 0.040NegativeNegative * ng/mL [facility] Jul 13 11:17:06 2020 Norcarfentanil 0.190NegativeNegativ e ng/mL [facility] Jul 13 11:17:06 2020 Sufentanil 0.080NegativeNegative ng/mL [facility] Jul 13 11:17:06 2020 Desmethyldoxepin 0.000Negative *Negative ng/mL [facility] Jul 13 11:17:06 2020 Doxepin 0.000NegativeNegative ng /mL Sat Feb 11:17:06 2020 Imipramine 3.450NegativeNegative ng/mL Sat Feb 11:17:06 2020 Nortriptyline 6.610NegativeNegative ng/mL Sat Feb 11:17:06 2020 Amitriptyline 4.260NegativeNegative ng/mL Satb 11:17:06 2020 Clomipramine 12.060NegativeNegative ng/mL Wed Feb 11:17:06 2020 Desipramine 7.260NegativeNegative * ng/mL Sat Feb 11:17:06 2020 Aripiprazole 0.000NegativeNegative* ng/mL Satb 10:13:02 2020 Chlorpromazine 0.160NegativeNegativ e ng/mL Satb 10:13:02 EST 2020 Clozapine 0.020NegativeNegative ng/mL Sat Feb 10:13:02 2020 Fluphenazine 0.090NegativeNegative* ng/mL Satb 10:13:03 2020 Haloperidol 0.040NegativeNegative * ng/mL Satb 10:13:03 2020 Lurasidone 0.280NegativeNegative ng/mL Sat Feb 10:13:03 EST 2020 Olanzapine 0.140NegativeNegative ng/mL Sat Feb 10:13:03 EST 2020 Promethazine 0.020NegativeNegative* ng/mL Sat Feb 10:13:03 2020 Quetiapine 50Positive - Consiste ntPOSITIVE> ng/mL Satb 10:13:03 EST 2020 Risperidone 0.000NegativeNegative * ng/mL Sat Feb 10:13:03 EST 2020 Trifluoperazine 0.230Negative Negative ng/mL SatJul 13 10:13:03 2020 Ziprasidone 0.000NegativeNegative * ng/mL SatJul 13 10:13:03 2020 Bupropion 50Positive - Consisten tPOSITIVE> ng/mL SatJul 13 10:13:03 2020 Hydroxybupropion 50Positive - Co nsistentPOSITIVE> ng/mL SatJul 13 10:13:03 2020 Trazodone 50Positive - Consisten tPOSITIVE> ng/mL SatJul 13 10:13:03 2020 mCPP 50Positive - Consistent *POSITIVE> ng/mL [facility] Jul 13 10:13:03 2020 Creatinine 221.8NORMALNORMAL mg/ dL SatSep 15 17:16:19 EDT 2020 pH 6.1NORMALNORMAL SatSep 15 17:16:20 EDT 2020 Oxidants -5.00NegativeNegative m cg/mL SatSep 15 17:16:20 EDT 2020 Validity Result VALIDVALIDVALID SatSep 15 17:30:28 EDT 2020 Amphetamines 641.00PRESUMPTIVE P OSITIVEPRESUMPTIVE POSITIVE ng/mL SatSep 15 17:16:19 EDT 2020 Barbiturates -14.00NegativeNegative ng/mL Jie Sep 15 17:16:20 EDT 2020 Benzodiazepines -10.00Negative *Negative ng/mL Jie Sep 15 17:16:20 EDT 2020 Buprenorphine 104.20PRESUMPTIVE POSITIVEPRESUMPTIVE POSITIVE ng/mL Jie Sep 15 17:16:20 EDT 2020 Cocaine Metabolites -37.00Negati veNegative ng/mL SatSep 15 17:16:20 EDT 2021 EDDP -145.00NegativeNegative ng/ mL Jie Sep 15 17:16:20 EDT 2020 Ethyl Glucuronide 238.00Negative Negative ng/mL Jie Sep 15 17:16:21 EDT 2020 Ethyl Alcohol -2.00NegativeNegative mg/dL Jie Sep 15 17:16:21 EDT 2020 Fentanyl 1.400PRESUMPTIVE POSITI VEPRESUMPTIVE POSITIVE ng/mL Jie Sep 15 17:16:21 EDT 2020 Heroin (6-AM) 0.50NegativeNegative* ng/mL Jie Sep 15 17:16:21 EDT 2020 Methadone -13.00NegativeNegative ng/mL Jie Sep 15 17:16:22 EDT 2020 Opiates -26.00NegativeNegative n g/mL Jie Sep 15 17:16:22 EDT 2020 Synthetic Opiates -30.00Negative Negative ng/mL Jie Sep 15 17:16:22 EDT 2020 Phencyclidine 14.70NegativeNegative ng/mL Jie Sep 15 17:16:22 EDT 2020 Cannabinoids -10.20NegativeNegative ng/mL Jie Sep 15 17:16:22 EDT 2020 Tramadol 12.00NegativeNegative n g/mL Jie Sep 15 17:16:22 EDT 2020 Tricyclics 499.00NegativeNegative * ng/mL Jie Sep 15 17:16:22 EDT 2020 Ecstasy (MDMA) 107.00Negative Negative ng/mL Jie Sep 15 17:16:22 EDT 2020 Buprenorphine 154.870Positive - ConsistentPOSITIVE ng/mL SatSep 16 16:03:52 EDT 2020 Norbuprenorphine 500Positive - C onsistentPOSITIVE> ng/mL SatSep 16 16:03:52 EDT 2020 Naloxone 262.010Positive - Consi stentPOSITIVE ng/mL SatSep 16 16:03:52 EDT 2020 Norfentanyl 0.340NegativeNegative * ng/mL SatSep 16 16:03:52 EDT 2020 Fentanyl 0.120NegativeNegative n g/mL SatSep 16 16:03:52 EDT 2020 Carfentanil 0.130NegativeNegative * ng/mL SatSep 16 16:03:52 EDT 2020 Norcarfentanil 0.200NegativeNegativ e ng/mL SatSep 16 16:03:52 EDT 2020 Sufentanil 0.070NegativeNegative ng/mL SatSep 16 16:03:52 EDT 2020 Methamphetamine 2.370Negative Negative ng/mL SatSep 16 16:03:52 EDT 2020 Amphetamine 0.000NegativeNegative * ng/mL SatSep 16 16:03:52 EDT 2020 Aripiprazole 0.160NegativeNegative* ng/mL SatSep 17 07:57:44 EDT 2020 Chlorpromazine 0.000NegativeNegativ e ng/mL SatSep 17 07:57:44 EDT 2020 Clozapine 0.010NegativeNegative ng/mL SatSep 17 07:57:44 EDT 2020 Fluphenazine 0.100NegativeNegative* ng/mL SatSep 17 07:57:44 EDT 2020 Haloperidol 0.010NegativeNegative * ng/mL SatSep 17 07:57:44 EDT 2020 Lurasidone 0.870NegativeNegative ng/mL SatSep 17 07:57:44 EDT 2020 Olanzapine 0.120NegativeNegative ng/mL [facility] Sep 19 07:41:23 EDT 2020 Promethazine 0.050NegativeNegative* ng/mL Sat Sep 17 07:57:44 EDT 2020 Quetiapine 50Positive - Consiste ntPOSITIVE> ng/mL Sat Sep 17 07:57:44 EDT 2020 Risperidone 0.000NegativeNegative * ng/mL Sat Sep 17 07:57:44 EDT 2020 Trifluoperazine 0.240Negative Negative ng/mL Sat Sep 17 07:57:44 EDT 2020 Ziprasidone 1.970NegativeNegative * ng/mL Sat Sep 17 07:57:44 EDT 2020 Bupropion 50Positive - Consisten tPOSITIVE> ng/mL Sat Sep 17 07:57:44 EDT 2020 Hydroxybupropion 50Positive - Co nsistentPOSITIVE> ng/mL Sat Sep 17 07:57:44 EDT 2020 Trazodone 50Positive - Consisten tPOSITIVE> ng/mL Sat Sep 17 07:57:44 EDT 2020 mCPP 50Positive - Consistent *POSITIVE> ng/mL Sat Sep 17 07:57:44 EDT 2020 COLOR DARK YELLOW SatDec 29 12 :55:00 EDT 2020 APPEARANCE TURBID SatDec 29 12:55:00 EDT 2020 SPECIFIC GR 1.030 SatDec 09 12:55:00 EDT 2020 PH 6.0 SatDec 29 12:55:0 0 EDT 2020 GLUCOSE NEGATIVE SatDec 29 12 :55:00 EDT 2020 BILIRUBIN NEGATIVE SatDec 29 12:55:00 EDT 2020 KETONES NEGATIVE SatDec 29 12 :55:00 EDT 2020 OCCULT BLOO 3+ SatDec 09 12:55:00 EDT 2020 PROTEIN 3+ SatDec 29 12 :55:00 EDT 2020 NITRITE POSITIVE SatDec 29 12 :55:00 EDT 2020 LEUKOCYTE E NEGATIVE Jie Dec 09 12:55:00 EDT 2020 WBC 6-10 /HPF SatDec 29 12:55: 00 EDT 2020 RBC 0-2 /HPF SatDec 29 12:55: 00 EDT 2020 SQUAMOUS EP 10-20 /HPF Jie Dec 09 2 12:55:00 EDT 2020 TRANSITIONA DNR /HPF Jie Dec 09 2 12:55:00 EDT 2020 RENAL EPITH DNR /HPF Jie Dec 09 2 12:55:00 EDT 2020 BACTERIA MODERATE /HPF Jie Dec 09 2 12:55:00 EDT 2020 CALCIUM OXA MANY /HPF Jie Dec 09 2 12:55:00 EDT 2020 TRIPLE PHOS DNR /HPF Jie Dec 09 2 12:55:00 EDT 2020 URIC ACID C DNR /HPF Jie Dec 09 2 12:55:00 EDT 2020 AMORPHOUS S MANY /HPF Jie Dec 09 2 12:55:00 EDT 2020 CRYSTALS DNR /HPF Jie Dec 29 1 2:55:00 EDT 2020 HYALINE CLAIRE NONE SEEN /LPF Jie J 22 12:55:00 EDT 2020 GRANULAR CA DNR /LPF Jie Dec 09 2 12:55:00 EDT 2020 CASTS DNR /LPF Jie Dec 29 12:5 5:00 EDT 2020 YEAST DNR /HPF Jie Dec 29 12:5 5:00 EDT 2020 COMMENTS DNR Jie Dec 29 1 2:55:00 EDT 2020 NOTE DNR Jie Dec 29 12:55 :00 EDT 2020 E [id number] null GLUCOSE 92 mg/dL SatJan 04 11 :34:00 EDT 2020 UREA NITROG 27 mg/dL SatDec 09 11:34:00 EDT 2020 CREATININE 1.18 mg/dL SatJan 04 11:34:00 EDT 2020 eGFR NON-AF 61 mL/min/1.73m2 SatJan 04 11:34:00 EDT 2020 eGFR TEZ 71 mL/min/1.73m2 SatJan 04 11:34:00 EDT 2020 BUN/CREATIN 23 (calc) SatDec 09 11:34:00 EDT 2020 SODIUM 136 mmol/L SatJan 04 11: 34:00 EDT 2020 POTASSIUM 5.0 mmol/L SatJan 04 11:34:00 EDT 2020 CHLORIDE 102 mmol/L SatJan 04 1 1:34:00 EDT 2020 CARBON DIOX 20 mmol/L SatDec 09 11:34:00 EDT 2020 CALCIUM 9.0 mg/dL SatJan 04 11 :34:00 EDT 2020 PROTEIN, TO 6.3 g/dL SatDec 09 11:34:00 EDT 2020 ALBUMIN 4.0 g/dL SatJan 04 11 :34:00 EDT 2020 GLOBULIN 2.3 g/dL (calc) SatJan 04 11:34:00 EDT 2020 ALBUMIN/EMIL 1.7 (calc) SatDec 09 11:34:00 EDT 2020 BILIRUBIN, 0.2 mg/dL SatJan 04 11:34:00 EDT 2020 ALKALINE PH 68 U/L SatDec 09 11:34:00 EDT 2020 AST 19 U/L SatJan 04 11:34: 00 EDT 2020 ALT 22 U/L SatJan 04 11:34: 00 EDT 2020 HCV RNA, QU <15 NOT DETECTED IU/mL SatJan 04 11:34:00 EDT 2020 HCV RNA, QU <1.18 NOT DETECTED Log IU/mL SatJan 04 11:34:00 EDT 2020 COMMENT SatJan 04 11 :34:00 EDT 2020 WHITE BLOOD 6.5 Thousand/uL SatJan 04 11:34:00 EDT 2020 RED BLOOD C 4.77 Million/uL SatJan 04 11:34:00 EDT 2020 HEMOGLOBIN 14.5 g/dL SatJan 04 11:34:00 EDT 2020 HEMATOCRIT 45.3 % SatJan 04 11:34:00 EDT 2020 MCV 95.0 fL SatJan 04 11:34: 00 EDT 2020 MCH 30.4 pg SatJan 04 11:34: 00 EDT 2020 MCHC 32.0 g/dL SatJan 04 11:34 :00 EDT 2020 RDW 14.4 % SatJan 04 11:34: 00 EDT 2020 PLATELET CO 235 Thousand/uL SatJan 04 11:34:00 EDT 2020 MPV 12.2 fL SatJan 04 11:34: 00 EDT 2020 ABSOLUTE NE 2847 cells/uL Sat 11:34:00 EDT 2020 ABSOLUTE BA DNR cells/uL SatJan 04 11:34:00 EDT 2020 ABSOLUTE ME DNR cells/uL SatJan 04 11:34:00 EDT 2020 ABSOLUTE MY DNR cells/uL SatJan 04 11:34:00 EDT 2020 ABSOLUTE W[place] DNR cells/uL SatJan 04 11:34:00 EDT 2020 ABSOLUTE LY 2919 cells/uL Sat 11:34:00 EDT 2020 ABSOLUTE MO 475 cells/uL SatJan 04 11:34:00 EDT 2020 ABSOLUTE EO 189 cells/uL SatJan 04 11:34:00 EDT 2020 ABSOLUTE BA 72 cells/uL SatJan 04 11:34:00 EDT 2020 ABSOLUTE BL DNR cells/uL SatJan 04 11:34:00 EDT 2020 ABSOLUTE NU DNR cells/uL SatJan 04 11:34:00 EDT 2020 NEUTROPHILS 43.8 % SatDec 09 11:34:00 EDT 2020 BAND NEUTRO DNR % SatDec 09 11:34:00 EDT 2020 METAMYELOCY DNR % SatDec 09 11:34:00 EDT 2020 MYELOCYTES DNR % SatJan 04 11:34:00 EDT 2020 PROMYELOCYT DNR % SatDec 09 11:34:00 EDT 2020 LYMPHOCYTES 44.9 % SatDec 09 11:34:00 EDT 2020 REACTIVE LY DNR % SatDec 09 11:34:00 EDT 2020 MONOCYTES 7.3 % SatJan 04 11:34:00 EDT 2020 EOSINOPHILS 2.9 % SatDec 09 11:34:00 EDT 2020 BASOPHILS 1.1 % SatJan 04 11:34:00 EDT 2020 BLASTS DNR % SatJan 04 11: 34:00 EDT 2020 NUCLEATED R DNR /100 WBC SatJan 04 11:34:00 EDT 2020 COMMENT(S) DNR SatJan 04 11:34:00 EDT 2020 RPR (DX) W/ NON-REACTIVE Sat 11:34:00 EDT 2020 [id number] null Medications Medication Directions Start Date End Date Suboxone 0.[address] one (1) bran m under the tongue three times a day SatJan 27 00:00:00 EDT 2020Feb 05 00:00 :00 EDT 2020 Anoro Ellipta 0.0 POW Inhale one ( 1) puff into the lungs twice a day SatJan 26 00:00:00 EDT 2020Feb 24 00:00 :00 EDT 2020 Singulair 10 MG TAB Take one (1) ta blet by mouth daily SatJan 26 00:00:00 EDT 2020 17 00:00 :00 EDT 2020 rOPINIRole HCl 0.25 MG TAB Take one (1) tablet by mouth three times a day SatJan 26 00:00:00 EDT 2020Feb 24 00:00 :00 EDT 2020 LAMICTAL (LAMOTRIGINE) 25 MG TABLET 2 Tablet HS: At Bedtime ORAL SatJan 24 06:00:00 EDT 2020Jan 25 12:55 :00 EDT 2020 Minipress 1 MG CAP Take one (1) cap robert by mouth daily SatJan 24 00:00:00 EDT 2020Jan 24 00:00 :00 EDT 2020 Wellbutrin XL 150 MG T24 Take one ( 1) tablet by mouth daily SatJan 24 00:00:00 EDT 2020Jan 24 00:00 :00 EDT 2020 traZODone hydrochloride 150 MG TAB Take one (1) tablet by mouth at bedtime SatJan 24 00:00:00 EDT 2020Jan 24 00:00:00 EDT 2020 Topamax 25 MG CAP Take one (1) caps ule by mouth twice a day SatJan 24 00:00:00 EDT 2020Jan 24 00:00 :00 EDT 2020 Vistaril 25 MG CAP Take one (1) cap robert by mouth three times a day, as needed for anxiety SatJan 24 00:00:00 EDT 2020Jan 24 00:00:00 EDT 2020 SEROquel 25 MG TAB Take one (1) tab let by mouth three times a day SatJan 24 00:00:00 EDT 2020Jan 24 00:00 :00 EDT 2020 Minipress 1 MG CAP Take one (1) cap robert by mouth daily SatJan 24 00:00:00 EDT 2020 15 00:00 :00 EDT 2020 Wellbutrin XL 150 MG T24 Take one ( 1) tablet by mouth daily SatJan 24 00:00:00 EDT 2020 15 00:00 :00 EDT 2020 traZODone hydrochloride 150 MG TAB Take one (1) tablet by mouth at bedtime SatJan 24 00:00:00 EDT 2020 [facility] Sep 15 00:00:00 EDT 2020 Topamax 25 MG CAP Take one (1) caps ule by mouth twice a day SatJan 24 00:00:00 EDT 2020 Wed Sep 15 00:00 :00 EDT 2020 Vistaril 25 MG CAP Take one (1) cap robert by mouth three times a day, as needed for anxiety SatJan 24 00:00:00 EDT 2020 [facility] Sep 15 00:00:00 EDT 2020 SEROquel 25 MG TAB Take one (1) tab let by mouth three times a day SatJan 24 00:00:00 EDT 2020 [facility] Sep 15 00:00 :00 EDT 2020 Minipress 1 MG CAP Take one (1) cap robert by mouth daily SatJan 24 00:00:00 EDT 2020Jan 24 00:00 :00 EDT 2020 SEROquel 100 MG TAB Take one (1) ta blet by mouth at bedtime SatJan 24 00:00:00 EDT 2020 [facility] 00:00 :00 EDT 2020 Wellbutrin XL 150 MG T24 Take one ( 1) tablet by mouth daily SatJan 24 00:00:00 EDT 2020Jan 24 00:00 :00 EDT 2020 traZODone hydrochloride 150 MG TAB Take one (1) tablet by mouth at bedtime SatJan 24 00:00:00 EDT 2020Jan 24 00:00:00 EDT 2020 Topamax 25 MG CAP Take one (1) caps ule by mouth twice a day SatJan 24 00:00:00 EDT 2020Jan 24 00:00 :00 EDT 2020 Vistaril 25 MG CAP Take one (1) cap robert by mouth three times a day, as needed for anxiety SatJan 24 00:00:00 EDT 2020Jan 24 00:00:00 EDT 2020 SEROquel 25 MG TAB Take one (1) tab let by mouth three times a day SatJan 24 00:00:00 EDT 2020Jan 24 00:00 :00 EDT 2020 Effexor XR 37.5 MG CER Take one (1) capsule by mouth every morning SatJan 24 00:00:00 EDT 2020Feb 22 00:00 :00 EDT 2020 NICOTINE POLACRILEX 2 MG LOZENGE/BERTHA 2 Each TID: Three Times a Day ORAL SatJan 23 00:00:00 EDT 2020Jan 25 12:55:00 EDT 2020 CLONIDINE HCL 0.1 MG TABLET 1 Table t TID: Three Times a Day ORAL (Does not need BP assessed) SatJan 23 10:41:00 EDT 2020Jan 25 12:55:00 EDT 2020 HYDROXYZINE HCL 25 MG TABLET 2 Tabl et TID: Three Times a Day ORAL SatJan 23 12:00:00 EDT 2020Jan 25 12:55 :00 EDT 2020 MAGNESIUM CITRATE 1.75 GM/30 ML SOLUTION 296 Milliliter Daily As Needed ORAL SatJan 22 19:06:00 EDT 2020Jan 25 12:55:00 EDT 2020 MAGNESIUM CITRATE 1.75 GM/30 ML SOLUTION 296 Milliliter Daily As Needed ORAL SatJan 21 08:00:00 EDT 2020Jan 22 07:59:00 EDT 2020 SENNA 8.6 MG TABLET 1 Tablet BIDPRN : Twice A Day As Needed ORAL SatJan 20 06:00:00 ED2020Jan 25 12:55 :00 EDT 2020 SUBOXONE (BUPRENORPHINE-NALOXONE) 4MG-1MG F ILM 1 Film TID: Three Times a Day SUBLINGUAL SatJan 20 06:00:00 ED2020Jan 25 12:55:00 EDT 2020 MAGNESIUM CITRATE 1.75 GM/30 ML SOLUTION 296 Milliliter Daily As Needed ORAL SatJan 20 08:00:00 ED2020 Sat Jan 21 07:59:00 EDT 2020 SUBOXONE (BUPRENORPHINE-NALOXONE) 4MG-1MG F ILM 1 Film TID: Three Times a Day SUBLINGUAL Jie Jan 19 00:00:00 ED2020Jan 20 09:07:00 ED2020 ROPINIROLE HCL 0.25 MG TABLET 1 Tab let TID: Three Times a Day ORAL SatJan 18 06:00:00 ED2020Jan 25 12:55 :00 EDT 2020 SUBOXONE (BUPRENORPHINE-NALOXONE) 4MG-1MG F ILM 1 Film TID: Three Times a Day SUBLINGUAL SatJan 13 06:00:00 EDT 2020Jan 19 08:35:00 EDT 2020 SUBOXONE (BUPRENORPHINE-NALOXONE) 4MG-1MG F ILM 1 Film BID: Twice a Day SUBLINGUAL (EKIT) SatJan 12 06:00:00 EDT 2020Jan 13 05:59:00 EDT 2020 SUBOXONE (BUPRENORPHINE-NALOXONE) 4MG-1MG F ILM 1 Film TID: Three Times a Day SUBLINGUAL SatJan 10 06:00:00 EDT 2020Jan 12 15:46:00 EDT 2020 SUBOXONE (BUPRENORPHINE-NALOXONE) 4MG-1MG F ILM 1 Film TID: Three Times a Day SUBLINGUAL SatJan 09 08:00:00 EDT 2020Jan 10 06:36:00 EDT 2020 CEFDINIR 300 MG CAPSULE 1 Capsule B ID: Twice a Day ORAL SatJan 09 06:00:00 EDT 2020Jan 19 05:59 :00 EDT 2020 NICODERM CQ (NICOTINE) 21 MG/24 HR PATCH, EX TENDED RELEASE 1 Patch Daily TRANSDERMAL (Remove at HS. MDD 1 Patch) SatJan 09 06:00:00 EDT 2020Jan 25 12:55:00 EDT 2020 SUBOXONE (BUPRENORPHINE-NALOXONE) 4MG-1MG F ILM 1 Film TID: Three Times a Day SUBLINGUAL SatJan 13 06:00:00 EDT 2020Jan 20 05:59:00 EDT 2020 PRAZOSIN HCL 5 MG CAPSULE 1 Capsule HS: At Bedtime ORAL SatJan 09 06:00:00 EDT 2020Jan 23 10:38 :00 EDT 2020 SUBOXONE (BUPRENORPHINE-NALOXONE) 4MG-1MG F ILM 1 Film BID: Twice a Day SUBLINGUAL SatJan 06 08:00:00 EDT 2020Jan 09 15:27:00 EDT 2020 MAGNESIUM CITRATE 1.75 GM/30 ML SOLUTION 296 Milliliter Once ORAL SatJan 05 18:03:00 EDT 2020Jan 06 18:02 :00 EDT 2020 SUBOXONE (BUPRENORPHINE-NALOXONE) 4MG-1MG F ILM 1 Film BID: Twice a Day SUBLINGUAL SatJan 01 06:00:00 EDT 2020Jan 06 05:59:00 EDT 2020 SUBOXONE (BUPRENORPHINE-NALOXONE) 4MG-1MG F ILM 1 Film BID: Twice a Day SUBLINGUAL SatJan 01 06:00:00 EDT 2020Jan 01 09:44:00 EDT 2020 SUBOXONE (BUPRENORPHINE-NALOXONE) 4MG-1MG F ILM 1 Film BID: Twice a Day SUBLINGUAL SatJan 01 23:34:00 EDT 2020Jan 01 09:44:00 EDT 2020 ESOMEPRAZOLE MAGNESIUM 20 MG CAPSULE, DELAYE D RELEASE 1 Capsule Daily ORAL SatDec 31 18:16:00 EDT 2020Jan 25 12:55:00 EDT 2020 NICOTINE 21 MG/24 HR PATCH, EXTENDED RELEASE 1 Patch Daily TRANSDERMAL SatDec 30 06:00:00 EDT 2020Jan 09 15:28 :00 EDT 2020 SUBOXONE (BUPRENORPHINE-NALOXONE) 4MG-1MG F ILM 1 Film BID: Twice a Day SUBLINGUAL SatDec 30 06:00:00 EDT 2020Jan 06 05:59:00 EDT 2020 BACTRIM DS (SULFAMETHOXAZOLE-T RIMETHOPRIM) 800MG-160MG TABLET 1 Tablet BID: Twice a Day ORAL SatDec 30 06:00:00 EDT 2020Jan 04 05:59:00 EDT 2020 STIMATE (DESMOPRESSIN ACETATE) 0.15 MG/1 ACT UATION SPRAY 1 [place] BIDPRN: Twice A Day As Needed NASAL (To be given immediately when she has nosebleeds) SatDec 30 06:00:00 EDT 2020Jan 25 12:55 :00 EDT 2020 ROPINIROLE HCL 0.25 MG TABLET 1 Tab let TID: Three Times a Day ORAL SatDec 30 06:00:00 ED2020Jan 18 13:29 :00 EDT 2020 QUETIAPINE FUMARATE 25 MG TABLET 1 Tablet TID: Three Times a Day ORAL SatDec 30:00:00 2020Jan 25 12:55 :00 ED2020 SEROQUEL (QUETIAPINE FUMARATE) 100 MG TABLET 1 Tablet HS: At Bedtime ORAL (Takes with 25mg of Seroquel) SatDec 30 06:00:00 ED2020Jan 25 12:55:00 EDT 2020 SINGULAIR (MONTELUKAST SODIUM) 10 MG TABLET 1 Tablet Daily ORAL SatDec 30 06:00:00 EDT 2020Jan 25 12:55 :00 EDT 2020 VENLAFAXINE HCL 37.5 MG CAPSULE, EXTENDED RE LEASE 1 Capsule Daily ORAL SatDec 30 06:00:00 EDT 2020Jan 25 12:55 :00 EDT 2020 MIRALAX (POLYETHYLENE GLYCOL 3 350) 17 GM/1 DOSE POWDER FOR SOLUTION 17 gm Daily As Needed ORAL SatDec 30 06:00:00 EDT 2020Jan 25 12:55:00 EDT 2020 LAMICTAL (LAMOTRIGINE) 25 MG TABLET 2 Tablet HS: At Bedtime ORAL SatDec 30 06:00:00 EDT 2020Jan 24 09:16 :00 EDT 2020 CLONIDINE HCL 0.1 MG TABLET 1 Table t TID: Three Times a Day ORAL (MDD 1mg. See clonidine 0.2mg) SatDec 30 06:00:00 EDT 2020Jan 23 10:43:00 EDT 2020 HYDROXYZINE HCL 25 MG TABLET 1 Tabl et TID: Three Times a Day ORAL SatDec 30 06:00:00 EDT 2020Jan 23 10:43 :00 EDT 2020 LAMICTAL (LAMOTRIGINE) 25 MG TABLET 2 Tablet Daily ORAL SatDec 28 16:09:00 EDT 2020Dec 30 09:36 :00 EDT 2020 REQUIP (ROPINIROLE HYDROCHLORIDE) 1 MG TABLE T 0.25 Milligram TIDPRN: Three Times A Day As Needed ORAL SatDec 28 16:08:00 EDT 2020Dec 30 09:27:00 EDT 2020 SEROQUEL (QUETIAPINE FUMARATE) 100 MG TABLET 1 Tablet HS: At Bedtime ORAL SatDec 28 16:07:00 EDT 2020Dec 30 09:36 :00 EDT 2020 IBUPROFEN 200 MG TABLET 3 tablet Da norberto As Needed ORAL (MDD 3200mg) SatDec 28 16:02:00 EDT 2020Dec 30 09:38 :00 EDT 2020 VENLAFAXINE HCL 37.5 MG TABLET 1 Tablet D aily ORAL SatDec 28 16:12:00 EDT 2020Dec 30 09:41:00 EDT 2020 PRAZOSIN HCL 5 MG CAPSULE 1 Capsule HS: At Bedtime ORAL SatDec 28 16:07:00 EDT 2020Jan 09 09:27 :00 EDT 2020 SENNA 8.6 MG TABLET 1 Tablet BIDPRN : Twice A Day As Needed ORAL SatDec 28 16:13:00 EDT 2020Jan 20 15:26 :00 EDT 2020 ACETAMINOPHEN 500 MG CAPSULE 2 caps ule Q6-8HPRN: Every 6-8 Hours As Needed ORAL (MDD 8 Tabs) SatDec 28 16:02:00 EDT 2020Jan 25 12:55:00 EDT 2020 BENADRYL ALLERGY (DIPHENHYDRAM INE HYDROCHLORIDE) 25 MG TABLET 1 tablet TIDPRN: Three Times A Day As Needed ORAL SatDec 28 16:02:00 EDT 2020Jan 25 12:55:00 EDT 2020 COLACE (DOCUSATE SODIUM) 100 MG CAPSULE, LIQ UID FILLED 1 capsule Daily As Needed ORAL SatDec 28 16:02:00 EDT 2020Jan 25 12:55:00 EDT 2020 FIBER-LAX 625 MG TABLET 2 tablet [place] N: As Needed ORAL (MDD 4 Tabs) SatDec 28 16:02:00 EDT 2020Jan 25 12:55 :00 EDT 2020 MILK OF MAGNESIA 400 MG/5 ML SOLUTION 60 mL PRN: As Needed ORAL SatDec 28 16:02:00 EDT 2020Jan 25 12:55 :00 EDT 2020 MELATONIN 5 MG CAPSULE 1 capsule HS PRN: At Bedtime As Needed ORAL (MDD 5mg) SatDec 28 16:02:00 EDT 2020Jan 25 12:55:00 EDT 2020 MULTIVITAMIN TABLET 1 tablet Daily ORAL SatDec 28 16:02:00 EDT 2020Jan 25 12:55:00 EDT 2020 ORAJEL MOUTH SORE MEDICINE (BE NZALKONIUM CHLORIDE-BENZOCAINE/ZINC CHLORIDE) 0.02%-20%-0.1% GEL/JELLY 1 [place] PRN: As Needed OROMUCOSAL SatDec 28 16:02:00 EDT 2020Jan 25 12:55 :00 EDT 2020 PEPTO-BISMOL (BISMUTH SUBSALICYLATE) 262 MG/ 15 ML SUSPENSION 30 mL As Directed ORAL (Every 1 hour as needed. MDD 8 doses) SatDec 28 16:02:00 EDT 2020Jan 25 12:55:00 EDT 2020 TUMS (CALCIUM CARBONATE) 500 MG TABLET, CHEW ABLE 3 tablet PRN: As Needed ORAL (MDD 10 Tabs) SatDec 28 16:02:00 EDT 2020Jan 25 12:55:00 EDT 2020 NARCAN (NALOXONE HCL) 4 MG/0.1 ML SPRAY 1 spray(s) As Directed NASAL SatDec 28 16:02:00 EDT 2020Jan 25 12:55:00 EDT 2020 TOPAMAX (TOPIRAMATE) 25 MG TABLET 1 Tablet BID: Twice a Day ORAL SatDec 28 16:05:00 EDT 2020Jan 25 12:55 :00 EDT 2020 TRAZODONE HYDROCHLORIDE 150 MG TABLET 1 Tablet HS: At Bedtime ORAL SatDec 28 16:06:00 EDT 2020Jan 25 12:55 :00 EDT 2020 WELLBUTRIN XL (BUPROPION HYDRO CHLORIDE) 150 MG TABLET, EXTENDED RELEASE, 24 HR 1 Tablet Daily ORAL SatDec 28 16:11:00 EDT 2020Jan 25 12:55:00 EDT 2020 ANORO ELLIPTA (UMECLIDINIUM BR OMIDE-VILANTEROL TRIFENATATE) 62.5MCG/1 ACTUATION-25MCG/1 ACTUATION POWDER 1 Inhalation Daily INHALATION SatDec 28 16:15:00 EDT 2020Jan 25 12:55 :00 EDT 2020 PRAZOSIN HCL 1 MG CAPSULE 1 Capsule HS: At Bedtime ORAL SatDec 28 16:07:00 EDT 2020Jan 23 10:37 :00 EDT [address] one (1) bran m under the tongue three times a day SatDec 09 00:00:00 ED2020Jan 07 00:00 :00 EDT 2020 cloNIDine HCl 0.1 MG TAB Take one ( 1) tablet by mouth three times a day, as needed SatDec 09 00:00:00 ED2020Jan 24 00:00:00 EDT 2020 Minipress 1 MG CAP Take one (1) cap robert by mouth daily SatDec 09 00:00:00 EDT 2020Jan 24 00:00 :00 EDT 2020 SEROquel 100 MG TAB Take one (1) ta blet by mouth at bedtime SatDec 09 00:00:00 EDT 2020Jan 07:00 :00 EDT 2020 Wellbutrin XL 150 MG T24 Take one ( 1) tablet by mouth daily SatDec 09 00:00:00 EDT 2020Jan 24:00 :00 2020 traZODone hydrochloride 150 MG TAB Take one (1) tablet by mouth at bedtime SatDec 09:00:00 ED2020Jan 24:00:00 ED2020 Topamax 25 MG CAP Take one (1) caps ule by mouth twice a day SatDec 09 00:00:00 EDT 2020Jan 24:00 :00 EDT 2020 Vistaril 25 MG CAP Take one (1) cap robert by mouth three times a day, as needed for anxiety SatDec 09:00:00 ED2020Jan 24:00:00 T 2020 SEROquel 25 MG TAB Take one (1) tab let by mouth three times a day SatDec 09:00:00 EDT 2020Jan 24:00 :00 2020 Effexor XR 37.5 MG CER Take one (1) capsule by mouth every morning SatDec 09 00:00:00 2020Jan 07:00 :00 2020 Minipress 5 MG CAP Take one (1) cap robert by mouth at bedtime SatDec 09 00:00:00 ED2020Jan 24:00 :00 2020 cloNIDine HCl 0.1 MG TAB Take one ( 1) tablet by mouth three times a day, as needed SatDec 09 00:00:00 EDT 2020Jan 24:00:00 2020 Minipress 5 MG CAP Take one (1) cap robert by mouth at bedtime SatDec 09 00:00:00 T 2020Jan 24:00 :00 2020 SEROquel 100 MG TAB Take one (1) ta blet by mouth at bedtime SatNov 10 00:00:00 EDT 2020Dec 09:00 :00 2020 Effexor XR 37.5 MG CER Take one (1) capsule by mouth every morning SatNov 10 00:00:00 ED2020Dec 09 00:00 :00 [address] one (1) bran m under the tongue three times a day SatNov 10 00:00:00 2020Dec 09 00:00 :00 [address] one (1) bran m under the tongue three times a day SatOctober 10 00:00:00 2020Nov 08 00:00 :00 2020 Effexor XR 37.5 MG CER Take one (1) capsule by mouth every morning SatOctober 10 00:00:00 2020Nov 08 00:00 :00 2020 cloNIDine HCl 0.1 MG TAB Take one ( 1) tablet by mouth three times a day, as needed SatOctober 10 00:00:00 2020Dec 08 00:00:00 2020 Minipress 1 MG CAP Take one (1) cap robert by mouth daily SatOctober 10 00:00:00 2020Dec 08 00:00 :00 2020 SEROquel 100 MG TAB Take one (1) ta blet by mouth at bedtime SatOctober 10 00:00:00 2020Nov 08 00:00 :00 2020 Wellbutrin XL 150 MG T24 Take one ( 1) tablet by mouth daily SatOctober 10 00:00:00 2020Dec 08 00:00 :00 2020 traZODone hydrochloride 150 MG TAB Take one (1) tablet by mouth at bedtime SatOctober 10 00:00:00 2020Dec 08 00:00:00 2020 Topamax 25 MG CAP Take one (1) caps ule by mouth twice a day SatOctober 10 00:00:00 2020Dec 08 00:00 :00 2020 Vistaril 25 MG CAP Take one (1) cap robert by mouth three times a day, as needed for anxiety SatOctober 10 00:00:00 2020Dec 08 00:00:00 2020 SEROquel 25 MG TAB Take one (1) tab let by mouth three times a day SatOctober 10 00:00:00 2020Dec 08 00:00 :00 EDT 2020 Minipress 5 MG CAP Take one (1) cap robert by mouth at bedtime SatOctober 10 00:00:00 EDT 2020Dec 08 00:00 :00 EDT 2020 SEROquel 100 MG TAB Take one (1) ta blet by mouth at bedtime SatSep 09 00:00:00 EDT 2020October 08 00:00 :00 EDT [address] one (1) bran m under the tongue three times a day SatSep 09 00:00:00 EDT 2020October 08 00:00 :00 EDT [address] one (1) bran m under the tongue three times a day SatAug 09 00:00:00 EST 2020Sep 07 00:00 :00 EDT 2020 lamoTRIgine 25 MG TAB Take two (2) tablets by mouth at bedtime SatAug 09 00:00:00 EST 2020Sep 09 00:00 :00 EDT 2020 cloNIDine HCl 0.1 MG TAB Take one ( 1) tablet by mouth three times a day, as needed SatAug 09 00:00:00 EST 2020Oct 07 00:00:00 EDT 2020 Minipress 1 MG CAP Take one (1) cap robert by mouth daily SatAug 09 00:00:00 EST 2020Oct 07 00:00 :00 ED2020 Wellbutrin XL 150 MG T24 Take one ( 1) tablet by mouth daily SatAug 09 00:00:00 EST 2020Oct 07 00:00 :00 EDT 2020 traZODone hydrochloride 150 MG TAB Take one (1) tablet by mouth at bedtime SatAug 09 00:00:00 EST 2020Oct 07 00:00:00 EDT 2020 Topamax 25 MG CAP Take one (1) caps ule by mouth twice a day SatAug 09:00:00 EST 2020Oct 07 00:00 :00 EDT 2020 Vistaril 25 MG CAP Take one (1) cap robert by mouth three times a day, as needed for anxiety SatAug 09 00:00:00 EST 2020Oct 07 00:00:00 EDT 2020 SEROquel 25 MG TAB Take one (1) tab let by mouth three times a day SatAug 09 00:00:00 EST 2020Oct 07 00:00 :00 EDT 2020 lamoTRIgine 25 MG TAB Take two (2) tablets by mouth at bedtime SatAug 09 00:00:00 EST 2020Sep 09 00:00 :00 ED2020 Minipress 5 MG CAP Take one (1) cap robert by mouth at bedtime SatAug 09 00:00:00 EST 2020Oct 07 00:00 :00 EDT [address] one (1) bran m under the tongue three times a day SatJul 11 00:00:00 EST 2020Jul 11 00:00 :00 EST [address] one (1) bran m under the tongue three times a day SatJul 11 00:00:00 EST 2020Jul 11 00:00 :00 EST [address] one (1) bran m under the tongue three times a day SatJul 11 00:00:00 EST 2020Jul 11 00:00 :00 EST [address] one (1) bran m under the tongue three times a day SatJul 11 00:00:00 2020Aug 09 00:00 :00 EST 2020 Topamax 25 MG CAP Take one (1) caps ule by mouth twice a day SatJun 27 00:00:00 2020Aug 09 00:00 :00 EST [address] one (1) bran m under the tongue three times a day SatJun 13 00:00:00 EST 2020Jul 03 00:00 :00 EST 2020 traZODone hydrochloride 150 MG TAB Take one (1) tablet by mouth at bedtime SatJun 13 00:00:00 EST 2020Aug 09 00:00:00 EST 2020 Buprenorphine-Naloxone 0.0 BRAN Aaron ce one (1) film under the tongue three times a day SatMay 30 00:00:00 EST 2019May 30 00:00:00 2019 Buprenorphine-Naloxone 0.0 BRAN Aaron ce one (1) film under the tongue three times a day SatMay 30 00:00:00 EST 2019May 30 00:00:00 EST 2019 traZODone hydrochloride 100 MG TAB Take one (1) tablet by mouth at bedtime SatMay 30 00:00:00 2019Jun 13 00:00:00 EST [address] one (1) bran m under the tongue three times a day SatMay 30 00:00:00 2019Jun 13 00:00 :00 2020 cloNIDine HCl 0.1 MG TAB Take one ( 1) tablet by mouth three times a day, as needed SatMay 30 00:00:00 2019Jul 28 00:00:00 EST 2020 Minipress 1 MG CAP Take one (1) cap robert by mouth daily SatMay 30 00:00:00 2019u Jul 28 00:00 :00 2020 traZODone hydrochloride 100 MG TAB Take one (1) tablet by mouth at bedtime SatMay 30 00:00:00 2019Jun 13 00:00:00 2020 Wellbutrin XL 150 MG T24 Take one ( 1) tablet by mouth daily SatMay 30 00:00:00 2019Jul 28 00:00 :00 EST 2020 Vistaril 25 MG CAP Take one (1) cap robert by mouth three times a day, as needed for anxiety SatMay 30 00:00:00 2019Jul 28 00:00:00 2020 SEROquel 25 MG TAB Take one (1) tab let by mouth three times a day SatMay 30 00:00:00 2019u Jul 28 00:00 :00 2020 lamoTRIgine 25 MG TAB Take two (2) tablets by mouth at bedtime SatMay 30 00:00:00 2019u Jul 28 00:00 :00 EST 2020 Buprenorphine-Naloxone 0.0 BRAN Aaron ce one (1) film under the tongue three times a day SatMay 17 00:00:00 2019May 30 00:00:00 2019 cloNIDine HCl 0.1 MG TAB Take one ( 1) tablet by mouth three times a day, as needed SatMay 17 00:00:00 2019May 30 00:00:00 2019 Minipress 1 MG CAP Take one (1) cap robert by mouth daily SatMay 17 00:00:00 2019May 30 00:00 2019 traZODone hydrochloride 100 MG TAB Take one (1) tablet by mouth at bedtime SatMay 17 00:00:2019May 30:00:00 2019 Wellbutrin XL 150 MG T24 Take one ( 1) tablet by mouth daily SatMay 17:00:00 2019May 30:00 :00 2019 Vistaril 25 MG CAP Take one (1) cap robert by mouth three times a day, as needed for anxiety SatMay 17:00:2019May 30:00:00 2019 SEROquel 25 MG TAB Take one (1) tab let by mouth three times a day SatMay 17:00:2019May 30:00 :00 2019 lamoTRIgine 25 MG TAB Take two (2) tablets by mouth at bedtime SatMay 17:00:00 2019May 30:00 :00 2019 Minipress 5 MG CAP Take one (1) cap robert by mouth at bedtime SatMay 17:00:00 2019Jul 15 00:00 :00 EST 2020 Buprenorphine-Naloxone 0.0 BRAN Aaron ce one (1) film under the tongue three times a day SatMay 03 00:00:00 2019May 17:00:00 2019 Buprenorphine-Naloxone 0.0 BRAN Aaron ce one (1) film under the tongue three times a day SatApr 25 00:00:00 EST 2019May 02 00:00:00 2019 Buprenorphine-Naloxone 0.0 BRAN Aaron ce one (1) film under the tongue three times a day SatApr 19 00:00:00 2019Apr 25 00:00:00 2019 DDAVP 0.0 SPR [place] two (2) sprays in nostril(s) daily SatApr 12 00:00:00 2019Sep 09 00:00 :00 EDT 2020 cloNIDine HCl 0.1 MG TAB Take one ( 1) tablet by mouth three times a day, as needed SatApr 12:00:00 2019May 11 00:00:00 EST 2019 rOPINIRole HCl 0.25 MG TAB Take one (1) tablet by mouth three times a day SatApr 12:00:00 2019Sep 09 00:00 :00 EDT 2020 Esomeprazole Magnesium 20 MG ECC Ta ke one (1) capsule by mouth daily SatApr 12 00:00:00 2019Sep 09 00:00 :00 EDT 2020 Ibuprofen 600 MG TAB Take one (1) t ablet by mouth twice a day, as needed for pain SatApr 12 00:00:00 2019Sep 09 00:00:00 ED2020 Anoro Ellipta 0.0 POW Inhale one ( 1) spray into the lungs daily SatApr 12 00:00:00 2019Sep 09 00:00 :00 EDT 2020 traZODone hydrochloride 100 MG TAB Take one (1) tablet by mouth at bedtime SatApr 12 00:00:00 2019May 11:00:00 2019 Vistaril 25 MG CAP Take one (1) cap robert by mouth three times a day, as needed for anxiety SatApr 12:00:00 2019May 11 00:00:00 2019 SEROquel 25 MG TAB Take one (1) tab let by mouth three times a day SatApr 12 00:00:00 2019May 11 00:00 :00 2019 lamoTRIgine 25 MG TAB Take two (2) tablets by mouth at bedtime SatApr 12:00:00 2019May 11 00:00 :00 2019 Albuterol Sulfate HFA 0.0 ANGELICA Inha le two (2) puffs into the lungs twice a day, as needed SatApr 12:00:00 2019Sep 09 00:00:00 ED2020 Minipress 1 MG CAP Take one (1) cap robert by mouth daily SatApr 12 00:00:00 2019May 11 00:00 :00 2019 Singulair 10 MG TAB Take one (1) ta blet by mouth daily SatApr 12 00:00:00 2019Sep 09 00:00 :00 EDT 2020 Wellbutrin XL 150 MG T24 Take one ( 1) tablet by mouth daily SatApr 12 00:00:00 2019May 11 00:00 :00 2019 Topamax 25 MG CAP Take one (1) caps ule by mouth twice a day SatApr 12 00:00:00 2019Jun 10 00:00 :00 EST 2020 Narcan 0.0 SPR [place] one (1) spray in nostril(s) daily SatApr 12 00:00:00 2019Sep 09:00 :00 2020 Minipress 5 MG CAP Take one (1) cap robert by mouth at bedtime SatApr 12:00:00 2019May 17 00:00 :00 [address] one (1) bran m under the tongue daily SatApr 12 00:00:00 2019Sep 09 00:00 :00 [address] one (1) bran m under the tongue daily SatApr 12 00:00:00 2019Sep 09 00:00 :00 [address] one (1) bran m under the tongue daily SatApr 07 00:00:00 2019Apr 12 00:00 :00 2019 ZyPREXA 10 MG TAB Take one (1) tabl et by mouth twice a day SatApr 07 00:00:00 2019Sep 09 00:00 :00 ED2020 ZyPREXA 10 MG TAB Take one (1) tabl et by mouth twice a day SatApr 07 00:00:00 2019Sep 09 00:00 :00 ED[address] one (1) bran m under the tongue daily SatApr 05 00:00:00 2019Apr 07 00:00 :00 2019 Singulair 10 MG TAB Take one (1) ta blet by mouth daily SatApr 05 00:00:00 2019Apr 12 00:00 :00 [address] one (1) bran m under the tongue daily SatFeb 02 00:00:00 2019Feb 08 00:00 :00 ED[address] one (1) bran m under the tongue twice a day SatNov 17 00:00:00 2019Nov 30 00:00 :00 2019 Vistaril 25 MG CAP Take one (1) cap robert by mouth twice a day, as needed SatNov 17 00:00:00 2019Dec 16 00:00 :00 [address] one (1) bran m under the tongue twice a day SatNov 10 00:00:00 2019Nov 17 00:00 :00 2019 lamoTRIgine 25 MG TAB Take one (1) tablet by mouth twice a day SatNov 10 00:00:00 2019Dec 09 00:00 :00 2019 Minipress 5 MG CAP Take one (1) cap robert by mouth at bedtime SatNov 10 00:00:00 2019Jan 08 00:00 :00 [address] one (1) tabl et under the tongue twice a day SatNovember 03 00:00:00 2019November 03 00:00 :00 [address] one (1) tabl et under the tongue twice a day SatNovember 03 00:00:00 2019November 03 00:00 :00 [address] one (1) tabl et under the tongue twice a day SatNovember 03 00:00:00 2019November 03 00:00 :00 2019 Narcan 0.0 SPR [place] one (1) spray in nostril(s) daily SatNovember 03 00:00:00 2019Dec 02 00:00 :00 2019 ZyPREXA 10 MG TAB Take one (1) tabl et by mouth at bedtime SatNovember 03 00:00:00 2019Dec 02 00:00 :00 2019 SEROquel 100 MG TAB Take one (1) ta blet by mouth twice a day SatNovember 03 00:00:00 2019Dec 02 00:00 :00 2019 traZODone hydrochloride 100 MG TAB Take one (1) tablet by mouth at bedtime SatNovember 03 00:00:00 2019Sep 09 00:00:00 2020 Wellbutrin XL 150 MG T24 Take one ( 1) tablet by mouth daily SatNovember 03 00:00:00 2019Dec 02 00:00 :00 2019 Topamax 25 MG CAP Take one (1) caps ule by mouth twice a day SatNovember 03 00:00:00 2019Jan 01 00:00 :00 2019 traZODone hydrochloride 50 MG TAB T deb one (1) tablet by mouth at bedtime SatNovember 03 00:00:00 2019 Jie Dec 02 00:00:00 [address] one (1) tabl et under the tongue twice a day SatNovember 03 00:00:00 2019Sep 09 00:00 :00 [address] one (1) tabl et under the tongue twice a day SatNovember 03 00:00:00 2019Sep 09 00:00 :00 2020 traZODone hydrochloride 100 MG TAB Take one (1) tablet by mouth at bedtime SatNovember 03 00:00:00 2019Sep 09:00:00 2020 DDAVP 0.0 SPR [place] two (2) sprays in nostril(s) daily SatApr 12:00:00 2019Sep 09:00 :00 2020 rOPINIRole HCl 0.25 MG TAB Take one (1) tablet by mouth three times a day SatApr 12 00:00:00 2019Sep 09 00:00 :00 2020 Esomeprazole Magnesium 20 MG ECC Ta ke one (1) capsule by mouth daily SatApr 12 00:00:00 2019Sep 09 00:00 :00 2020 Ibuprofen 600 MG TAB Take one (1) t ablet by mouth twice a day, as needed for pain SatApr 12:00:00 2019Sep 09 00:00:00 2020 Anoro Ellipta 0.0 POW Inhale one ( 1) spray into the lungs daily SatApr 12 00:00:00 2019Sep 09:00 :00 2020 Albuterol Sulfate HFA 0.0 ANGELICA Inha le two (2) puffs into the lungs twice a day, as needed SatApr 12:00:00 2019Sep 09 00:00:00 2020 Singulair 10 MG TAB Take one (1) ta blet by mouth daily SatApr 12:00:00 2019Sep 09:00 :00 2020 Narcan 0.0 SPR [place] one (1) spray in nostril(s) daily SatApr 12 00:00:00 2019Sep 09 00:00 :00 [address] one (1) bran m under the tongue twice a day SatOctober 13 00:00:00 ED2019Nov 09 00:00 :00 2019 Buprenorphine-Naloxone 0.0 BRAN Aaron ce one (1) film under the tongue twice a day SatOctober 13 00:00:00 2019October 13 00:00:00 2019 Buprenorphine-Naloxone 0.0 BRAN Aaron ce one (1) film under the tongue twice a day SatOctober 13 00:00:00 2019October 13 00:00:00 2019 Ventolin HFA 0.0 ANGELICA Inhale one (1 ) milliliter into the lungs daily SatOctober 13 00:00:00 2019October 13 00:00 :00 2019 Ventolin HFA 0.0 ANGELICA Inhale one (1 ) milliliter into the lungs daily SatOctober 13 00:00:00 2019October 13 00:00 :00 2019 Ventolin HFA 0.0 ANGELICA Inhale one (1 ) milliliter into the lungs daily SatOctober 13 00:00:00 2019October 13 00:00 :00 2019 Singulair 10 MG TAB Take one (1) ta blet by mouth daily SatOctober 13 00:00:00 ED2019October 22 00:00 :00 2019 ZyPREXA 10 MG TAB Take one (1) tabl et by mouth at bedtime SatOctober 13 00:00:00 2019November 03 00:00 :00 2019 SEROquel 100 MG TAB Take one (1) ta blet by mouth twice a day SatOctober 13 00:00:00 2019November 03 00:00 :00 2019 traZODone hydrochloride 100 MG TAB Take one (1) tablet by mouth at bedtime SatOctober 13 00:00:00 2019November 03 00:00:00 2019 Wellbutrin XL 150 MG T24 Take one ( 1) tablet by mouth daily SatOctober 13 00:00:00 2019November 03 00:00 :00 2019 Topamax 25 MG CAP Take one (1) caps ule by mouth twice a day SatOctober 13 00:00:00 2019November 03 00:00 :00 2019 traZODone hydrochloride 50 MG TAB T deb one (1) tablet by mouth at bedtime SatOctober 13 00:00:00 2019November 03 00:00:00 2019 Albuterol Sulfate HFA 0.0 ANGELICA Inha le two (2) puffs into the lungs twice a day, as needed SatOctober 13 00:00:00 2019Nov 11 00:00:00 2019 traZODone hydrochloride 50 MG TAB T deb one (1) tablet by mouth at bedtime SatSep 29 00:00:00 2019October 13 00:00:00 2019 Buprenorphine-Naloxone 0.0 BRAN Aaron ce one (1) film under the tongue twice a day SatSep 29 00:00:00 2019October 12 00:00:00 2019 Buprenorphine-Naloxone 0.0 BRAN Aaron ce one (1) film under the tongue twice a day SatSep 15 00:00:00 2019Sep 28 00:00:00 2019 Singulair 10 MG TAB Take one (1) ta blet by mouth daily SatSep 15 00:00:00 2019Sep 24 00:00 :00 2019 ZyPREXA 10 MG TAB Take one (1) tabl et by mouth at bedtime SatSep 15 00:00:00 2019October 13 00:00 :00 2019 SEROquel 100 MG TAB Take one (1) ta blet by mouth twice a day SatSep 15 00:00:00 2019October 13 00:00 :00 2019 traZODone hydrochloride 100 MG TAB Take one (1) tablet by mouth at bedtime SatSep 15 00:00:00 2019October 13 00:00:00 2019 Wellbutrin XL 150 MG T24 Take one ( 1) tablet by mouth daily SatSep 15 00:00:00 2019October 13 00:00 :00 2019 Topamax 25 MG CAP Take one (1) caps ule by mouth twice a day SatSep 15 00:00:00 2019October 13 00:00 :00 2019 Vistaril 25 MG CAP Take one (1) cap robert by mouth twice a day, as needed SatSep 15 00:00:00 2019October 14 00:00 :00 2019 lamoTRIgine 25 MG TAB Take one (1) tablet by mouth twice a day SatSep 15 00:00:00 2019October 14 00:00 :00 2019 Minipress 5 MG CAP Take one (1) cap robert by mouth at bedtime SatSep 15 00:00:00 2019Nov 10 00:00 :00 2019 Minipress 1 MG CAP Take one (1) cap robert by mouth daily SatSep 15 00:00:00 2019October 14 00:00 :00 2019 Vistaril 25 MG CAP Take one (1) cap robert by mouth twice a day, as needed SatSep 01 00:00:00 2019Sep 15 00:00 :00 2019 Buprenorphine-Naloxone 0.0 BRAN Aaron ce one (1) film under the tongue twice a day SatSep 01 00:00:00 2019Sep 14 00:00:00 2019 Buprenorphine-Naloxone 0.0 BRAN Aaron ce one (1) film under the tongue daily SatSep 01 00:00:00 2019Sep 01 00:00 :00 2019 Buprenorphine-Naloxone 0.0 BRAN Aaron ce one (1) film under the tongue daily SatSep 01 00:00:00 2019Sep 01 00:00 :00 2019 traZODone hydrochloride 100 MG TAB Take one (1) tablet by mouth at bedtime SatAug 26 00:00:00 2019Sep 15 00:00:00 2019 Buprenorphine-Naloxone 0.0 BRAN Aaron ce one (1) film under the tongue daily SatAug 25 00:00:00 2019Aug 31 00:00 :00 2019 KlonoPIN 0.5 MG TAB Take one (1) ta blet by mouth twice a day SatAug 25 00:00:00 2019Aug 31 00:00 :00 2019 Gabapentin 300 MG CAP Take one (1) capsule by mouth three times a day SatAug 19 00:00:00 2019Aug 25 00:00 :00 2019 Minipress 5 MG CAP Take one (1) cap robert by mouth at bedtime SatAug 18 00:00:00 EDT 2019Sep 15 00:00 :00 EDT [address] one (1) bran m under the tongue twice a day SatAug 18 00:00:00 2019Aug 25 00:00 :00 2019 Singulair 10 MG TAB Take one (1) ta blet by mouth daily SatAug 13 00:00:00 2019Sep 11 00:00 :00 EDT 2019 Prazosin HCl 2 MG CAP Take two (2) capsules by mouth at bedtime SatAug 13 00:00:00 2019October 11 00:00 :00 2019 ZyPREXA 10 MG TAB Take one (1) tabl et by mouth at bedtime SatAug 05 00:00:00 2019Sep 02 00:00 :00 2019 SEROquel 100 MG TAB Take one (1) ta blet by mouth twice a day SatAug 05 00:00:00 2019Sep 02 00:00 :00 2019 lamoTRIgine 25 MG TAB Take one (1) tablet by mouth twice a day SatAug 05 00:00:00 2019Sep 02 00:00 :00 2019 traZODone hydrochloride 50 MG TAB T deb one (1) tablet by mouth at bedtime SatAug 05 00:00:00 2019Aug 26 00:00:00 2019 Prazosin HCl 1 MG CAP Take three (3 ) capsules by mouth at bedtime SatAug 05 00:00:00 2019Aug 13 00:00 :00 2019 Wellbutrin XL 150 MG T24 Take one ( 1) tablet by mouth daily SatAug 05 00:00:00 2019Sep 02 00:00 :00 ED2019 Topamax 25 MG CAP Take one (1) caps ule by mouth twice a day SatAug 05 00:00:00 2019Sep 15 00:00 :00 [address] one (1) bran m under the tongue twice a day SatAug 05 00:00:00 2019Aug 17 00:00 :00 EDT 2019 METRONIDAZOLE 500 MG TABLET Fri Feb 21 08:00:00 EST 2020 Mon Mar 02 07:59:00 EST 2020 QUETIAPINE FUMARATE 100 MG TABLET Fri Feb 21 08:00:00 EST 2020 Fri Mar 20 08:59:00 EDT 2020 SUBOXONE (BUPRENORPHINE-NALOXONE) 8MG-2MG FILM Fri Feb 21 08:00:00 EST 2020 Fri Feb 28 07:59:00 EST 2020 LAMOTRIGINE 25 MG TABLET Fri Feb 21 08:00:00 EST 2020 Fri Mar 20 08:59:00 EDT 2020 QUETIAPINE FUMARATE 100 MG TABLET Fri Feb 21 08:00:00 EST 2020 Fri Mar 20 08:59:00 EDT 2020 QUETIAPINE FUMARATE 50 MG TABLET, EXTENDED RELEASE Jie Feb 20 22:58:00 EST 2020 Jie Mar 19 23:57:00 EDT 2020 SUBOXONE (BUPRENORPHINE-NALOXONE) 8MG-2MG FILM Jie Feb 20 08:00:00 EST 2020 Jie Feb 27 07:59:00 EST 2020 SUBOXONE (BUPRENORPHINE-NALOXONE) 4MG-1MG FILM Jie Feb 20 08:00:00 EST 2020 Jie Mar 05 07:59:00 EST 2020 TOPAMAX (TOPIRAMATE) 25 MG CAPSULE Jie Feb 20 08:00:00 EST 2020 Jie Mar 05 07:59:00 EST 2020 SUBOXONE (BUPRENORPHINE-NALOXONE) 8MG-2MG FILM Jie Feb 20 08:00:00 EST 2020 Jie Feb 27 07:59:00 EST 2020 PRAZOSIN HCL 1 MG CAPSULE Mon Feb 17 08:00:00 EST 2020 Mon Mar 02 07:59:00 EST 2020 QUETIAPINE FUMARATE 50 MG TABLET, EXTENDED RELEASE Sun Feb 16 14:32:00 EST 2020 Sun Mar 15 15:31:00 EDT 2020 TRAZODONE HYDROCHLORIDE 50 MG TABLET Sun Feb 16 08:00:00 EST 2020 Sun Mar 15 08:59:00 EDT 2020 TRAZODONE HYDROCHLORIDE 50 MG TABLET Sun Feb 16 08:00:00 EST 2020 Sun Mar 01 07:59:00 EST 2020 SUBOXONE (BUPRENORPHINE-NALOXONE) 8MG-2MG FILM Sun Feb 16 08:00:00 EST 2020 Sun Feb 23 07:59:00 EST 2020 SUBOXONE (BUPRENORPHINE-NALOXONE) 4MG-1MG FILM Sun Feb 16 11:57:00 EST 2020 Sun Feb 23 11:56:00 EST 2020 SUBOXONE (BUPRENORPHINE-NALOXONE) 4MG-1MG FILM Jie Feb 13 08:00:00 EST 2020 Jie Feb 20 07:59:00 EST 2020 OLANZAPINE 10 MG TABLET e Feb 11 08:00:00 EST 2019 Tue Mar 10 08:59:00 EDT 2020 TOPAMAX (TOPIRAMATE) 25 MG TABLET e Feb 11 08:00:00 EST 2020 Tue Mar 10 08:59:00 EDT 2020 WELLBUTRIN XL (BUPROPION HYDRO CHLORIDE) 150 MG TABLET, EXTENDED RELEASE, 24 HR Tue Feb 11 08:00:00 EST 2019 Tue Mar 10 08:59:00 EDT 2020 QUETIAPINE FUMARATE 50 MG TABLET, EXTENDED RELEASE e Feb 11 15:37:00 2019e Mar 10 16:36:00 EDT 2020 QUETIAPINE FUMARATE 50 MG TABLET, EXTENDED RELEASE e Feb 11 21:00:00 EST 2020 e Mar 10 21:59:00 EDT 2020 LAMOTRIGINE 25 MG TABLET Wed Feb 12 08:00:00 EST 2020 Wed Mar 11 08:59:00 EDT 2020 PRAZOSIN HCL 2 MG CAPSULE e Feb 11 21:00:00 EST 2020 Tue Mar 10 21:59:00 EDT 2020 SUBOXONE (BUPRENORPHINE-NALOXONE) 8MG-2MG FILM Mon Feb 10 23:24:00 EST 2020 Jie Feb 20 23:23:00 EST 2020 TRAZODONE HYDROCHLORIDE 50 MG TABLET Mon Feb 10 23:24:00 EST 2020 e Mar 10 00:23:00 EDT 2020 NARCAN (NALOXONE HCL) 4 MG/0.1 ML SPRAY Mon Feb 10 23:24:00 EST 2020 Mon Feb 24 23:23:00 EST 2020 VENTOLIN HFA (ALBUTEROL SULFAT E) 0.09 MG/1 ACTUATION SUSPENSION Mon Feb 10 23:24:00 EST 2020 Tu e Mar 10 00:23:00 EDT 2020 NARCAN (NALOXONE HCL) 4 MG/0.1 ML SPRAY Mon Feb 10 23:24:00 EST 2020 Mon Feb 24 23:23:00 EST 2020 PEPCID (FAMOTIDINE) 40 MG TABLET Mon Feb 10 23:24:00 EST 2020 Tue Mar 10 00:23:00 EDT 2020 ORAJEL MOUTH SORE MEDICINE (BE NZALKONIUM CHLORIDE-BENZOCAINE/ZINC CHLORIDE) 0.02%-20%-0.1% GEL/JELLY Mon Feb 1 0 23:24:2019 10 00:23:00 EDT 2019 MYLANTA (ALUMINUM HYDROXIDE-MA GNESIUM HYDROXIDE-SIMETHICONE) 200MG/5 ML-200MG/5 ML-20MG/5 ML SUSPENSION Mon Feb 10 :24:2019 10 00:23:00 EDT 2019 MULTIVITAMIN TABLET Sat Feb 10 ::2019Aug 17 00:23:00 EDT 2019 MELATONIN 5 MG CAPSULE Sat Feb 10 ::2019Aug 17 00:23:00 EDT 2019 ICY HOT (MENTHOL-METHYL SALICYLATE) 10%-30% CREAM Sat Feb 10 ::2019Aug 17 00:23:00 EDT 2019 FIBER-LAX 625 MG TABLET Sat Feb 10 ::2019Aug 17 00:23:00 EDT 2019 CLARITIN (LORATADINE) 10 MG TABLET Sat Feb 10 ::2019Aug 17 00:23:00 EDT 2019 BENADRYL ALLERGY (DIPHENHYDRAM INE HYDROCHLORIDE) 25 MG TABLET Sat Feb 10 ::2019Aug 17 00:23:00 EDT 2019 TUMS (CALCIUM CARBONATE) 500 MG TABLET, CHEWABLE Sat Feb 10 :24:00 2019Aug 17 00:23:00 EDT 2019 GAS-X (SIMETHICONE) 80 MG TABLET, CHEWABLE Sat Feb 10 :24:00 2019Aug 17 00:23:00 EDT 2019 ACETAMINOPHEN (TYLENOL) 500 MG TABLET Sat Feb 10 :24:00 2019Aug 17 00:23:00 EDT 2020 NICOTINE POLACRILEX 4 MG LOZENGE/BERTHA Mon Feb 10 :24:00 2019 24 23:23:00 EST 2019 MONTELUKAST SODIUM 10 MG TABLET Mon Feb 10 :24:00 2019Aug 17 00:23:00 EDT 2019 ADVAIR DISKUS 250/50 (FLUTICAS ONE PROPIONATE-SALMETEROL XINAFOATE) 0.25MG/1 ACTUATION-0.05MG/1 ACTUATION DISK Mo n Jul 10 ::2019Aug 17 00:23:00 EDT 2019 HYDROXYZINE HCL 25 MG TABLET Satb 04 01::2019 Sat Feb 15 ::00 2019 ZOFRAN (ONDANSETRON) 4 MG TABLET, DISINTEGRATING SatJul 20::2019 Sat Feb 15 ::00 2019 CATAPRES (CLONIDINE HYDROCHLORIDE) 0.1 MG TABLET SatJul 20::00 2019 Sat Feb 15 ::00 2019 XOPENEX (LEVALBUTEROL HYDROCHLORIDE) 1.25 MG /3 ML SOLUTION SatJul 20::2019Aug 17 00:23 :00 EDT 2019 TRIPLE ANTIBIOTIC OINTMENT 40 0UNITS/1GM-3.5MG/1GM-5000UNITS/1GM OINTMENT SatJul 20::2019Aug 17 00:23:00 EDT 2019 PEPTO-BISMOL (BISMUTH SUBSALICYLATE) 262 MG/ 15 ML SUSPENSION SatJul 20::00 2019Aug 17 00:23 :00 EDT 2019 MILK OF MAGNESIA 400 MG/5 ML SOLUTION SatJul 20::2019Aug 17 00:23:00 EDT 2019 GUAIFENESIN 600 MG TABLET, EXTENDED RELEASE SatJul 20::2019Aug 17 00:23:00 EDT 2019 COLACE (DOCUSATE SODIUM) 100 MG CAPSULE, LIQ UID FILLED SatJul 20:24:00 2019Aug 17 00:23 :00 EDT 2019 BENADRYL ALLERGY (DIPHENHYDRAM INE HYDROCHLORIDE) 25 MG TABLET SatJul 20:24:00 2019Aug 17 00:23:00 EDT 2019 EUCERIN DAILY PROTECTION (LOTI ON, MULTI INGREDIENT) 2%-7.5%-4.5%-2.4%-4.8% LOTION Satb 10 23:2 4:00 2019Aug 17 00:23:00 EDT 2019 EUCERIN DAILY PROTECTION (LOTI ON, MULTI INGREDIENT) 2%-7.5%-4.5%-2.4%-4.8% LOTION Sun Feb 10:0 5:00 EST 2019Aug 15 11:04:00 EDT 2020 TRAZODONE HYDROCHLORIDE 50 MG TABLET Sun Feb 10:03:00 EST 2019Aug 15 11:02:00 EDT 2019 ACETAMINOPHEN (TYLENOL) 500 MG TABLET Sun Feb 04:55:00 EST 2019Aug 15 05:54:00 EDT 2020 GAS-X (SIMETHICONE) 80 MG TABLET, CHEWABLE Sat Feb 08 15:55:00 EST 2019Aug 14 15:54:00 EST 2020 TUMS (CALCIUM CARBONATE) 500 MG TABLET, CHEWABLE Sat Feb 08 15:55:00 EST 2019Aug 14 15:54:00 EST 2019 BENADRYL ALLERGY (DIPHENHYDRAM INE HYDROCHLORIDE) 25 MG TABLET Sat Feb 08 15:55:00 EST 2019 Aug 14 15:54:00 EST 2020 BENADRYL ALLERGY (DIPHENHYDRAM INE HYDROCHLORIDE) 25 MG TABLET Sat Feb 08 15:55:00 EST 2019 Aug 14 15:54:00 EST 2020 CLARITIN (LORATADINE) 10 MG TABLET Sat Feb 08 15:55:00 EST 2020 SatAug 14 15:54:00 EST 2020 COLACE (DOCUSATE SODIUM) 100 MG CAPSULE, LIQ UID FILLED Sat Feb 08 15:55:00 EST 2019Aug 14 15:54 :00 EST 2020 FIBER-LAX 625 MG TABLET Sat Feb 08 15:55:00 EST 2020 SatAug 14 15:54:00 EST 2020 GUAIFENESIN 600 MG TABLET, EXTENDED RELEASE Sat Feb 08 15:55:00 EST 2019Aug 14 15:54:00 EST 2020 ICY HOT (MENTHOL-METHYL SALICYLATE) 10%-30% CREAM Sat Feb 08 15:55:00 EST 2020 SatAug 14 15:54:00 EST 2020 MELATONIN 5 MG CAPSULE Sat Feb 08 15:55:00 EST 2020 SatAug 14 15:54:00 EST 2020 MILK OF MAGNESIA 400 MG/5 ML SOLUTION Sat Feb 08 15:55:00 EST 2020 SatAug 14 15:54:00 EST 2020 MULTIVITAMIN TABLET Sat Feb 08 15:55:00 EST 2020 SatAug 14 15:54:00 EST 2020 MYLANTA (ALUMINUM HYDROXIDE-MA GNESIUM HYDROXIDE-SIMETHICONE) 200MG/5 ML-200MG/5 ML-20MG/5 ML SUSPENSION Sat Feb 08 15:55:00 EST 2019Aug 14 15:54:00 EST 2019 ORAJEL MOUTH SORE MEDICINE (BE NZALKONIUM CHLORIDE-BENZOCAINE/ZINC CHLORIDE) 0.02%-20%-0.1% GEL/JELLY Sat Feb 0 8 15:55:00 EST 2019Aug 14 15:54:00 EST 2019 PEPTO-BISMOL (BISMUTH SUBSALICYLATE) 262 MG/ 15 ML SUSPENSION Sat Feb 08 15:55:00 EST 2019Aug 14 15:54 :00 EST 2019 PEPCID (FAMOTIDINE) 40 MG TABLET Sat Feb 08 15:55:00 2019Aug 14 15:54:00 EST 2019 TRIPLE ANTIBIOTIC OINTMENT 40 0UNITS/1GM-3.5MG/1GM-5000UNITS/1GM OINTMENT Sat Feb 08 15:55:00 EST 2019 Aug 14 15:54:00 EST 2019 XOPENEX (LEVALBUTEROL HYDROCHLORIDE) 1.25 MG /3 ML SOLUTION Sat Feb 08 15:55:00 EST 2019Aug 14 15:54 :00 EST 2020 NARCAN (NALOXONE HCL) 4 MG/0.1 ML SPRAY Sat Feb 08 15:55:00 EST 2020 Sat Feb 22 15:54:00 EST 2020 CATAPRES (CLONIDINE HYDROCHLORIDE) 0.1 MG TABLET Sat Feb 08 15:55:00 EST 2019 Jie Feb 13 15:54:00 EST 2020 ZOFRAN (ONDANSETRON) 4 MG TABLET, DISINTEGRATING Sat Feb 08 15:55:00 EST 2020 Jie Feb 13 15:54:00 EST 2020 HYDROXYZINE HCL 25 MG TABLET Sat Feb 08 15:55:00 EST 2019 Jie Feb 13 15:54:00 EST 2020 ADVAIR DISKUS 250/50 (FLUTICAS ONE PROPIONATE-SALMETEROL XINAFOATE) 0.25MG/1 ACTUATION-0.05MG/1 ACTUATION DISK t Jul 08 15:55:00 EST 2019Aug 14 15:54:00 EST 2019 VENTOLIN HFA (ALBUTEROL SULFAT E) 0.09 MG/1 ACTUATION SUSPENSION Sat Feb 08 15:55:00 EST 2020 Sa t Mar 07 15:54:00 EST 2020 SUBOXONE (BUPRENORPHINE-NALOXONE) 8MG-2MG FILM Sat Feb 08 15:55:00 EST 2020 Tue Feb 18 15:54:00 EST 2020 NARCAN (NALOXONE HCL) 4 MG/0.1 ML SPRAY Sat Feb 08 15:55:00 EST 2020 Sat Feb 22 15:54:00 EST 2020 MONTELUKAST SODIUM 10 MG TABLET Sat Feb 08 15:55:00 EST 2020 Sat Mar 07 15:54:00 EST 2020 NICOTINE POLACRILEX 4 MG LOZENGE/BERTHA Sat Feb 08 15:54:00 EST 2020 Sat Feb 22 15:53:00 EST 2020 NICOTINE POLACRILEX 4 MG LOZENGE/BERTHA Wed Feb 05 08:00:00 EST 2020 Wed Feb 19 07:59:00 EST 2020 MONTELUKAST SODIUM 10 MG TABLET Wed Feb 05 08:00:00 EST 2020 Wed Mar 07:59:00 EST 2020 NARCAN (NALOXONE HCL) 4 MG/0.1 ML SPRAY Wed Feb 05 08:00:00 EST 2020 Wed Feb 19 07:59:00 EST 2020 SUBOXONE (BUPRENORPHINE-NALOXONE) 8MG-2MG FILM Jie Feb 06 08:00:00 EST 2020 Sun Feb 16 07:59:00 EST 2020 SUBOXONE (BUPRENORPHINE-NALOXONE) 4MG-1MG FILM Wed Feb 05 08:00:00 EST 2020 Jie Feb 06 07:59:00 EST 2020 VENTOLIN HFA (ALBUTEROL SULFAT E) 0.09 MG/1 ACTUATION SUSPENSION Wed Feb 08:00:00 EST 2020 We d Aug 11 07:59:00 EST 2020 ADVAIR DISKUS 250/50 (FLUTICAS ONE PROPIONATE-SALMETEROL XINAFOATE) 0.25MG/1 ACTUATION-0.05MG/1 ACTUATION DISK We d Feb 08:00:00 EST 2020 Wed Aug 11 07:59:00 EST 2020 HYDROXYZINE HCL 25 MG TABLET Wed Feb 12:24:00 EST 2020 Mon Feb 10 12:23:00 EST 2020 ZOFRAN (ONDANSETRON) 4 MG TABLET, DISINTEGRATING Wed Feb 12:24:00 EST 2020 Mon Feb 10 12:23:00 EST 2020 CATAPRES (CLONIDINE HYDROCHLORIDE) 0.1 MG TABLET SatJul 15 12:24:00 2019 Mon Feb 10 12:23:00 EST 2019 NARCAN (NALOXONE HCL) 4 MG/0.1 ML SPRAY SatJul 15 12:24:00 2019 Wed Feb 19 12:23:00 EST 2019 XOPENEX (LEVALBUTEROL HYDROCHLORIDE) 1.25 MG /3 ML SOLUTION SatJul 15 12:24:00 2019Aug 11 12:23 :00 EST 2019 TRIPLE ANTIBIOTIC OINTMENT 40 0UNITS/1GM-3.5MG/1GM-5000UNITS/1GM OINTMENT SatJul 15 12:24:00 2019 d Aug 11 12::00 2019 PEPCID (FAMOTIDINE) 40 MG TABLET SatJul 15 12:24:00 2019Aug 11 12:23:00 EST 2019 PEPTO-BISMOL (BISMUTH SUBSALICYLATE) 262 MG/ 15 ML SUSPENSION SatJul 15 12:24:00 2019Aug 11 12:23 :00 EST 2019 ORAJEL MOUTH SORE MEDICINE (BE NZALKONIUM CHLORIDE-BENZOCAINE/ZINC CHLORIDE) 0.02%-20%-0.1% GEL/JELLY Sat 0 5 12::2019Aug 11 12:23:00 EST 2020 MYLANTA (ALUMINUM HYDROXIDE-MA GNESIUM HYDROXIDE-SIMETHICONE) 200MG/5 ML-200MG/5 ML-20MG/5 ML SUSPENSION SatJul 15 12:24:00 2019Aug 11 12:23:00 EST 2019 MULTIVITAMIN TABLET SatJul 15 12:24:00 2019Aug 11 12:23:00 EST 2019 MILK OF MAGNESIA 400 MG/5 ML SOLUTION SatJul 15 12:24:00 2019Aug 11 12:23:00 EST 2019 MELATONIN 5 MG CAPSULE SatJul 15 12:24:00 2019Aug 11 12:23:00 EST 2020 IMODIUM A-D (LOPERAMIDE HYDROC HLORIDE) 2 MG CAPSULE, LIQUID FILLED SatJul 15 12:24:00 2019 We d Aug 11 12:23:00 EST 2019 IBUPROFEN 200 MG TABLET SatJul 15 12::00 2019Aug 11 12:23:00 EST 2020 ICY HOT (MENTHOL-METHYL SALICYLATE) 10%-30% CREAM SatJul 15 12:24:00 2019Aug 11 12:23:00 EST 2019 GUAIFENESIN 600 MG TABLET, EXTENDED RELEASE SatJul 15 12:24:00 2019Aug 11 12:23:00 EST 2019 FIBER-LAX 625 MG TABLET SatJul 15 12:24:00 2019Aug 11 12:23:00 EST 2019 COLACE (DOCUSATE SODIUM) 100 MG CAPSULE, LIQ UID FILLED SatJul 15 12:24:00 2019Aug 11 12:23 :00 EST 2019 CLARITIN (LORATADINE) 10 MG TABLET SatJul 15 12:24:00 2019Aug 11 12:23:00 2019 BENADRYL ALLERGY (DIPHENHYDRAM INE HYDROCHLORIDE) 25 MG TABLET SatJul 15 12:24:00 2019 We Aug 11 12:23:00 EST 2019 BENADRYL ALLERGY (DIPHENHYDRAM INE HYDROCHLORIDE) 25 MG TABLET SatJul 15 12:24:00 2019Aug 11 12:23:00 EST 2020 TUMS (CALCIUM CARBONATE) 500 MG TABLET, CHEWABLE SatJul 15 12:24:00 2019Aug 11 12:23:00 EST 2019 GAS-X (SIMETHICONE) 80 MG TABLET, CHEWABLE SatJul 15 12:24:00 2019Aug 11 12:23:00 EST 2019 ACETAMINOPHEN 500 MG CAPSULE SatJul 15 12:24:00 2019Aug 11 12:23:00 EST 2019 NICODERM CQ (NICOTINE) 14 MG/24 HR PATCH, EX TENDED RELEASE SatJun 26 08:04:00 EST 2019Jul 03 08:03 :00 EST 2020 HYDROXYZINE HCL 25 MG TABLET SatJun 26 08:04:00 EST 2019Jul 01 08:03:00 EST 2019 ZOFRAN (ONDANSETRON) 4 MG TABLET, DISINTEGRATING SatJun 26 08:04:00 EST 2019Jul 01 08:03:00 EST 2019 CATAPRES (CLONIDINE HYDROCHLORIDE) 0.1 MG TABLET SatJun 26 08:04:00 EST 2019Jul 01 08:03:00 EST 2019 NARCAN (NALOXONE HCL) 4 MG/0.1 ML SPRAY SatJun 26 08:04:00 EST 2019Jul 10 08:03:00 EST 2020 XOPENEX (LEVALBUTEROL HYDROCHLORIDE) 1.25 MG /3 ML SOLUTION SatJun 26 08:04:00 EST 2020 Fri Feb 14 08:03 :00 EST 2020 TRIPLE ANTIBIOTIC OINTMENT 40 0UNITS/1GM-3.5MG/1GM-5000UNITS/1GM OINTMENT SatJun 26 08:04:00 EST 2020 Fr i Feb 14 08:03:00 EST 2020 PEPCID (FAMOTIDINE) 40 MG TABLET SatJun 26 08:04:00 EST 2019 Fri Feb 14 08:03:00 EST 2020 PEPTO-BISMOL (BISMUTH SUBSALICYLATE) 262 MG/ 15 ML SUSPENSION SatJun 26 08:04:00 2019 Fri Feb 14 08:03 :00 EST 2020 ORAJEL MOUTH SORE MEDICINE (BE NZALKONIUM CHLORIDE-BENZOCAINE/ZINC CHLORIDE) 0.02%-20%-0.1% GEL/JELLY SatJun 10 08:04:00 EST 2020 Fri Feb 14 08:03:00 EST 2020 MYLANTA (ALUMINUM HYDROXIDE-MA GNESIUM HYDROXIDE-SIMETHICONE) 200MG/5 ML-200MG/5 ML-20MG/5 ML SUSPENSION SatJun 26 08:04:00 EST 2020 Fri Feb 14 08:03:00 EST 2020 MULTIVITAMIN TABLET SatJun 26 08:04:00 EST 2020 Fri Feb 14 08:03:00 EST 2020 MILK OF MAGNESIA 400 MG/5 ML SOLUTION SatJun 26 08:04:00 2020 Fri Feb 14 08:03:00 EST 2020 MELATONIN 5 MG CAPSULE SatJun 26 08:04:00 2019 Fri Feb 14 08:03:00 EST 2020 IMODIUM A-D (LOPERAMIDE HYDROC HLORIDE) 2 MG CAPSULE, LIQUID FILLED SatJun 26 08:04:00 2020 Fr i Feb 14 08:03:00 EST 2020 IBUPROFEN 200 MG TABLET SatJun 26 08:04:00 2020 Fri Feb 14 08:03:00 EST 2020 ICY HOT (MENTHOL-METHYL SALICYLATE) 10%-30% CREAM SatJun 26 08:04:00 2019 Fri Feb 14 08:03:00 EST 2020 GUAIFENESIN 600 MG TABLET, EXTENDED RELEASE SatJun 26 08:04:00 EST 2019 Fri Feb 14 08:03:00 EST 2020 FIBER-LAX 625 MG TABLET Fri Jun 26 08:04:00 EST 2020 Fri Feb 14 08:03:00 EST 2020 COLACE (DOCUSATE SODIUM) 100 MG CAPSULE, LIQ UID FILLED Fri Jun 26 08:04:00 EST 2019 Fri Feb 14 08:03 :00 EST 2020 CLARITIN (LORATADINE) 10 MG TABLET Fri Jun 26 08:04:00 EST 2020 Fri Feb 14 08:03:00 EST 2020 BENADRYL ALLERGY (DIPHENHYDRAM INE HYDROCHLORIDE) 25 MG TABLET Fri Jun 26 08:04:00 EST 2020 Fr i Feb 14 08:03:00 EST 2020 BENADRYL ALLERGY (DIPHENHYDRAM INE HYDROCHLORIDE) 25 MG TABLET Fri Jun 26 08:04:00 EST 2019 Fr i Feb 14 08:03:00 EST 2019 TUMS (CALCIUM CARBONATE) 500 MG TABLET, CHEWABLE Fri Jun 26 08:04:00 EST 2019 Fri Feb 14 08:03:00 EST 2020 GAS-X (SIMETHICONE) 80 MG TABLET, CHEWABLE Fri Jun 26 08:04:00 EST 2020 Fri Feb 14 08:03:00 EST 2020 ACETAMINOPHEN 500 MG CAPSULE Fri Jun 26 08:04:00 EST 2020 Fri Feb 14 08:03:00 EST 2020 VALIUM (DIAZEPAM) 5 MG TABLET Sun Jun 28 08:00:00 EST 2019Jun 29 07:59:00 EST 2019 VALIUM (DIAZEPAM) 5 MG TABLET Sat Jun 27 08:00:00 EST 2019 Sun Jun 28 07:59:00 EST 2019 VALIUM (DIAZEPAM) 5 MG TABLET Sat Jun 27 17:31:00 EST 2019 Sun Jun 28 17:30:00 EST 2019 VALIUM (DIAZEPAM) 5 MG TABLET Fri Jun 26 17:31:00 EST 2019 Sat Jun 27 17:30:00 EST 2019 VALIUM (DIAZEPAM) 5 MG TABLET Fri Jun 26 17:31:00 EST 2019 Sat Jun 27 17:30:00 EST 2019 VALIUM (DIAZEPAM) 5 MG TABLET Jie Jun 25 08:00:00 EST 2019 Fri Jun 26 07:59:00 EST 2019 VALIUM (DIAZEPAM) 5 MG TABLET Fri Jun 26 08:00:00 EST 2019 Mon Jun 29 07:59:00 EST 2020 VALIUM (DIAZEPAM) 5 MG TABLET Jie Jun 25 08:00:00 EST 2019 Fri Jun 26 07:59:00 EST 2019 SUBOXONE (BUPRENORPHINE-NALOXONE) 4MG-1MG FILM Jie Luc 16 08:00:00 2019Jul 02 07:59:00 2019 SUBOXONE (BUPRENORPHINE-NALOXONE) 4MG-1MG FILM SatJun 25 08:00:00 2019Jun 26 07:59:00 2019 ADVAIR DISKUS 250/50 (FLUTICAS ONE PROPIONATE-SALMETEROL XINAFOATE) 0.25MG/1 ACTUATION-0.05MG/1 ACTUATION DISK Jun 25 08:00:00 2019Jul 23 07:59:00 2019 PROAIR HFA (ALBUTEROL SULFATE) 0.09 MG/1 ACTUATION SUSPENSION SatJun 25 08:00:00 2019Jul 23 07:59:00 2019 NICOTINE 14 MG/24 HR PATCH, EXTENDED RELEASE SatJun 25 08:00:00 2019Jul 23 07:59:00 2019 Gabapentin 300 MG CAP Take two (2) capsules by mouth three times a day SatDec 22 00:00:00 2018 [facility] Sep 00:00 :00 2018 Prazosin HCl 1 MG CAP Take one (1) capsule by mouth at bedtime SatDec 22 00:00:00 2018 [facility] Sep 00:00 :00 2018 traZODone hydrochloride 100 MG TAB Take one (1) or two (2) tablets by mouth at bedtime, as needed. SatDec 22 00:00:00 2018 [facility] Sep 00:00:00 2018 Topamax 25 MG CAP Take one (1) caps ule by mouth twice a day SatDec 22 00:00:00 2018 [facility] Sep 00:00 :00 2018 Prazosin HCl 5 MG CAP Take one (1) capsule by mouth at bedtime SatDec 22 00:00:00 2018 [facility] Sep 00:00 :00 2018 hydrOXYzine Pamoate 50 MG CAP Take one (1) capsule by mouth twice a day, as needed SatDec 22 00:00:00 2018 [facility] Sep 00:00:00 2018 hydrOXYzine Pamoate 50 MG CAP Take one (1) capsule by mouth twice a day, as needed SatNov 24 00:00:00 2018Dec 22 00:00:2018 Prazosin HCl 1 MG CAP Take one (1) capsule by mouth at bedtime SatNov 24 00:00:00 2018Dec 22 00:00 :00 2018 traZODone hydrochloride 100 MG TAB Take one (1) or two (2) tablets by mouth at bedtime, as needed. SatNov 24 00:00:00 2018Dec 22 00:00:00 2018 Topamax 25 MG CAP Take one (1) caps ule by mouth twice a day SatNov 24 00:00:00 2018Dec 22 00:00 :00 2018 Gabapentin 300 MG CAP Take two (2) capsules by mouth four times a day SatNov 24 00:00:00 2018Dec 22 00:00 :00 2018 Prazosin HCl 5 MG CAP Take one (1) capsule by mouth at bedtime SatNov 24 00:00:00 2018Dec 22 00:00 :00 [address] one (1) bran m under the tongue daily SatNov 24 00:00:00 2018Dec 23 00:00 :00 [address] one (1) bran m under the tongue daily SatNovember 05 00:00:00 2018Nov 25 00:00 :00 [address] one (1) bran m under the tongue daily SatOctober 22 00:00:00 2018November 05 00:00 :00 2018 traZODone hydrochloride 100 MG TAB Take one (1) or two (2) tablets by mouth at bedtime, as needed. SatSep 24 00:00:00 2018October 23:00:00 2018 Prazosin HCl 1 MG CAP Take one (1) capsule by mouth at bedtime SatSep 24 00:00:00 2018October 23 00:00 :00 2018 Prazosin HCl 5 MG CAP Take one (1) capsule by mouth at bedtime SatSep 24 00:00:00 2018October 23 00:00 :00 2018 Wellbutrin XL 150 MG T24 Take one ( 1) tablet by mouth twice a day SatSep 24 00:00:00 2018October 23 00:00 :00 2018 Gabapentin 300 MG CAP Take two (2) capsules by mouth four times a day SatSep 24 00:00:00 ED2018October 23 00:00 :00 2018 Topamax 25 MG CAP Take one (1) caps ule by mouth twice a day SatSep 24 00:00:00 2018October 23 00:00 :00 2018 hydrOXYzine Pamoate 50 MG CAP Take one (1) capsule by mouth three times a day, as needed SatSep 24 00:00:00 2018October 23 00:00:00 2018 TRAZODONE HYDROCHLORIDE 100 MG TABLET SatSep 23 17:10:00 2018October 21 17:09:00 2018 TRAZODONE HYDROCHLORIDE 100 MG TABLET SatSep 23 17:09:00 2018October 21 17:08:00 2018 ADVAIR DISKUS 250/50 (FLUTICAS ONE PROPIONATE-SALMETEROL XINAFOATE) 0.25MG/1 ACTUATION-0.05MG/1 ACTUATION DISK Sep 23 09:00:00 2018October 21 08:59:00 ED2018 SUBOXONE (BUPRENORPHINE-NALOXONE) 12MG-3MG FILM SatSep 23 09:00:00 2018Oct 07 08:59:00 ED2018 SUBOXONE (BUPRENORPHINE-NALOXONE) 12MG-3MG FILM SatSep 22 11:00:00 ED2018Oct 06 10:59:00 2018 NICOTINE 14 MG/24 HR PATCH, EXTENDED RELEASE SatSep 15 09:00:00 2018October 13 08:59:00 2018 TOPIRAMATE 50 MG TABLET SatSep 12 12:10:00 ED2018Sep 15 12:09:00 2018 PRAZOSIN HCL 1 MG CAPSULE SatSep 12 12:07:00 ED2018October 10 12:06:00 2018 HYDROXYZINE HCL 50 MG TABLET SatSep 12 12:05:00 ED2018October 10 12:04:00 ED2018 TRAZODONE HYDROCHLORIDE 100 MG TABLET SatSep 12 12:04:00 2018October 10 12:03:00 ED2018 BUPROPION HCL 150 MG TABLET, EXTENDED RELEAS E, 24 HR SatSep 12 12:04:00 ED2018October 10 12:03 :00 EDT 2018 GABAPENTIN 300 MG CAPSULE SatSep 12 12:04:00 EDT 2018October 10 12:03:00 EDT 2018 PRAZOSIN HCL 5 MG CAPSULE SatSep 12 12:02:00 EDT 2018October 10 12:01:00 EDT 2018 TOPIRAMATE 25 MG TABLET SatSep 12 12:06:00 EDT 2018October 10 12:05:00 EDT 2018 TRAZODONE HYDROCHLORIDE 100 MG TABLET SatSep 11 08:00:00 EDT 2018 Jie Sep 25 07:59:00 EDT 2018 TOPIRAMATE 25 MG TABLET SatSep 08 18:07:00 EDT 2018Sep 12 18:06:00 EDT 2018 IBUPROFEN 200 MG TABLET SatSep 08 09:00:00 EDT 2018 06 08:59:00 EDT 2019 SUBOXONE (BUPRENORPHINE-NALOXONE) 12MG-3MG FILM SatSep 08 09:00:00 EDT 2018 Mon Sep 15 08:59:00 EDT 2018 PRAZOSIN HCL 1 MG CAPSULE SatSep 08 12:12:00 EDT 2018Oct 06 12:11:00 EDT 2018 DICYCLOMINE HCL 20 MG TABLET SatSep 07 15:09:00 EDT 2018Oct 05 15:08:00 EDT 2018 MIRALAX (POLYETHYLENE GLYCOL 3 350) 17 GM/1 DOSE POWDER FOR SOLUTION SatSep 06 09:00:00 EDT 2018 u Sep 11 08:59:00 EDT 2018 MIRALAX (POLYETHYLENE GLYCOL 3 350) 17 GM/1 DOSE POWDER FOR SOLUTION SatSep 05 09:00:00 EDT 2018 Sa t Sep 06 08:59:00 EDT 2018 LINZESS (LINACLOTIDE) 290 MCG CAPSULE SatSep 03 09:00:00 EDT 2018Oct 01 08:59:00 EDT 2018 TOPIRAMATE 50 MG TABLET SatSep 05 17:01:00 EDT 2018Oct 03 17:00:00 EDT 2018 TOPIRAMATE 25 MG TABLET SatSep 02 17:00:00 EDT 2018Sep 05 16:59:00 EDT 2018 LINEZOLID 600 MG TABLET SatSep 01 09:00:00 EDT 2018Sep 08 08:59:00 EDT 2018 BACTRIM DS (SULFAMETHOXAZOLE-T RIMETHOPRIM) 800MG-160MG TABLET SatSep 01 09:00:00 EDT 2019 Mo n Sep 08 08:59:00 EDT 2018 NICODERM CQ (NICOTINE) 21 MG/24 HR PATCH, EX TENDED RELEASE Sat Aug 30 09:00:00 EDT 2018 Sat Sep 27 08:59 :00 EDT 2018 SUBOXONE (BUPRENORPHINE-NALOXONE) 12MG-3MG FILM SatAug 29 09:00:00 EDT 2018Sep 12 08:59:00 EDT 2018 SUBOXONE (BUPRENORPHINE-NALOXONE) 12MG-3MG FILM SatAug 28 09:00:00 EDT 2018Aug 29 08:59:00 EDT 2018 HYDROXYZINE HCL 50 MG TABLET SatAug 27 22:43:00 EDT 2018Sep 24 22:42:00 EDT 2018 ABREVA (DOCOSANOL) 10 % CREAM SatAug 27 22:43:00 EDT 2018Sep 24 22:42:00 EDT 2018 ADVAIR DISKUS 250/50 (FLUTICAS ONE PROPIONATE-SALMETEROL XINAFOATE) 0.25MG/1 ACTUATION-0.05MG/1 ACTUATION DISK We Aug 27 22:42:00 EDT 2018Sep 24 22:41:00 EDT 2018 PRAZOSIN HCL 1 MG CAPSULE SatAug 27 22:41:00 EDT 2018Sep 24 22:40:00 EDT 2018 CEPHALEXIN 500 MG TABLET SatAug 27 22:40:00 EDT 2018Sep 24 22:39:00 EDT 2018 DOXYCYCLINE HYCLATE 100 MG CAPSULE SatAug 27 22:40:00 EDT 2018Sep 24 22:39:00 EDT 2018 TRAZODONE HYDROCHLORIDE 100 MG TABLET SatAug 27 22:39:00 EDT 2018Sep 24 22:38:00 EDT 2019 ALBUTEROL SULFATE 0.083 % SOLUTION SatAug 27 22:38:00 EDT 2018Sep 24 22:37:00 EDT 2019 BUPROPION HCL 150 MG TABLET, EXTENDED RELEAS E, 24 HR SatAug 27 22:37:00 EDT 2018Sep 24 22:36 :00 EDT 2018 PREDNISONE 20 MG TABLET SatAug 27 22:36:00 EDT 2018Sep 24 22:35:00 EDT 2018 ZIPRASIDONE HCL 20 MG CAPSULE SatAug 27 22:34:00 EDT 2018Sep 24 22:33:00 EDT 2018 GABAPENTIN 300 MG CAPSULE SatAug 27 22:33:00 EDT 2018Sep 24 22:32:00 EDT 2019 PRAZOSIN HCL 5 MG CAPSULE SatAug 27 22:33:00 EDT 2018Sep 24 22:32:00 EDT 2019 MONTELUKAST SODIUM 10 MG TABLET SatAug 27 22:32:00 EDT 2018Sep 24 22:31:00 EDT 2019 ZOFRAN (ONDANSETRON HYDROCHLORIDE) 4 MG TABLET SatAug 27 17:41:00 EDT 2018Sep 24 17:40:00 EDT 2019 XOPENEX (LEVALBUTEROL HYDROCHLORIDE) 1.25 MG /3 ML SOLUTION SatAug 27 17:41:00 EDT 2018Sep 24 17:40 :00 EDT 2019 TRIPLE ANTIBIOTIC 400UNITS/1G M-3.5MG/1GM-5000UNITS/1GM OINTMENT SatAug 27 17:41:00 EDT 2018 We Sep 24 17:40:00 EDT 2019 ZANTAC (RANITIDINE HYDROCHLORIDE) 150 MG TABLET SatAug 27 17:41:00 EDT 2018Sep 24 17:40:00 EDT 2018 PHENYLEPHRINE HCL 10 MG TABLET SatAug 27 17:41:00 EDT 2018Sep 24 17:40:00 EDT 2019 PEPTO-BISMOL (BISMUTH SUBSALICYLATE) 262 MG/ 15 ML SUSPENSION SatAug 27 17:41:00 EDT 2018Sep 24 17:40 :00 EDT 2019 ORAJEL MOUTH SORE MEDICINE (BE NZALKONIUM CHLORIDE-BENZOCAINE/ZINC CHLORIDE) 0.02%-20%-0.1% GEL/JELLY Sat 2 0 17:41:00 EDT 2018Sep 24 17:40:00 EDT 2019 MYLANTA (ALUMINUM HYDROXIDE-MA GNESIUM HYDROXIDE-SIMETHICONE) 200MG/5 ML-200MG/5 ML-20MG/5 ML SUSPENSION SatAug 27 17:41:00 EDT 2018Sep 24 17:40:00 EDT 2019 MULTIVITAMIN TABLET SatAug 27 17:41:00 EDT 2018Sep 24 17:40:00 EDT 2019 MILK OF MAGNESIA 400 MG/5 ML SOLUTION SatAug 27 17:41:00 EDT 2018Sep 24 17:40:00 EDT 2019 MELATONIN 5 MG CAPSULE SatAug 27 17:41:00 EDT 2018Sep 24 17:40:00 EDT 2019 ICY HOT (MENTHOL-METHYL SALICYLATE) 10%-30% CREAM SatAug 27 17:41:00 EDT 2018Sep 24 17:40:00 EDT 2018 GUAIFENESIN 600 MG TABLET, EXTENDED RELEASE SatAug 27 17:41:00 EDT 2018Sep 24 17:40:00 EDT 2018 FIBER-LAX 625 MG TABLET SatAug 27 17:41:00 EDT 2018Sep 24 17:40:00 EDT 2019 COLACE (DOCUSATE SODIUM) 100 MG CAPSULE, LIQ UID FILLED SatAug 27 17:41:00 EDT 2018Sep 24 17:40 :00 EDT 2019 CLARITIN (LORATADINE) 10 MG TABLET SatAug 27 17:41:00 EDT 2018Sep 24 17:40:00 EDT 2018 BENADRYL ALLERGY (DIPHENHYDRAM INE HYDROCHLORIDE) 25 MG TABLET SatAug 27 17:41:00 EDT 2018 We d Sep 24 17:40:00 EDT 2018 BENADRYL ALLERGY (DIPHENHYDRAM INE HYDROCHLORIDE) 25 MG TABLET SatAug 27 17:41:00 EDT 2018 We d Sep 24 17:40:00 EDT 2019 TUMS (CALCIUM CARBONATE) 500 MG TABLET, CHEWABLE SatAug 27 17:41:00 EDT 2018Sep 24 17:40:00 EDT 2019 GAS-X (SIMETHICONE) 80 MG TABLET, CHEWABLE SatAug 27 17:41:00 EDT 2018Sep 24 17:40:00 EDT 2019 ACETAMINOPHEN 500 MG CAPSULE SatAug 27 17:41:00 EDT 2018Sep 24 17:40:00 EDT [address] one and one half (1.5) films under the tongue daily SatNov 18 00:00:00 EDT 2017Nov 27 00:00:00 EDT 2017 Prazosin HCl 1 MG CAP Take one (1) capsule by mouth at bedtime SatSep 19 00:00:00 ED2017Sep 28: : ED2017 busPIRone HCl 15 MG TAB Take one (1 ) tablet by mouth twice a day SatSep 19 00:00:00 ED2017Sep 28 00:00 :00 EDT 2017 chlorproMAZINE HCl 25 MG TAB Take o ne (1) tablet by mouth four times a day SatSep 19 00:00:00 EDT 2017Sep 28 00:00:00 EDT 2017 hydrOXYzine HCl 25 MG TAB Take one (1) tablet by mouth every 6 hours SatJul 25 00:00:00 EST 2017Aug 03 00:00 :00 EST 2017 Problems Active Concerns * Opioid abuse * Code: [id number] * Start Date: SatJun 10 11:00:00 EST 2010 * Text: * Addiction/Abstinence/Withdrawal * Code: USER-Addiction * Start Date: SatJan 31 08:00:00 EDT 2016 * Text: * Biomedical * Code: USER-Biomedical * Start Date: SatJan 31 08:00:00 EDT 2016 * Text: * Emotional/Behavioral/State of Change * Code: USER-Emotional * Start Date: SatJan 31 08:00:00 EDT 2016 * Text: * Legal * Code: USER-Legal * Start Date: SatApr 18 07:00:00 EST 2016 * Text: * Social/Interpersonal/Recovery Environment * Code: USER-Social * Start Date: SatJan 31 08:00:00 EDT 2016 * Text: * Family * Code: USER-Family * Start Date: SatJan 31 08:00:00 EDT 2016 * Text: * Housing * Code: USER-Housing * Start Date: SatApr 18 07:00:00 EST 2016 * Text: * Educational/Vocational * Code: USER-EducationalVoc * Start Date: SatAug 27 08:00:00 EDT 2018 * Text: * Alcohol use disorder, severe * Code: [id number] * Start Date: SatJun 24 07:00:00 2019 * Text: * Severe nicotine withdrawal * Code: [id number] * Start Date: SatJun 24 07:00:00 2019 * Text: * Stimulant use disorder * Code: [id number] * Start Date: SatJun 24 07:00:00 2019 * Text: * Synthetic cannabinoid dependence * Code: [id number] * Start Date: SatJul 15 07:00:00 2019 * Text: * Opioid use disorder, severe, dependence * Code: [id number] * Start Date: SatJul 15 07:00:00 2019 * Text: * Current every day smoker * Code: [id number] * Start Date: SatJul 15 07:00:00 2019 * Text: * Bipolar disorder with psychotic features * Code: [id number] * Start Date: SatSep 29 08:00:00 EDT 2019 * Text: Resolved Concerns * Problem Addiction/Abstinence/Withdrawal * Code: USER-Addiction * Start Date: SatJan 31 08:00:00 EDT 2016 * End Date: null * Problem Social/Interpersonal/Recovery Environment * Code: USER-Social * Start Date: SatJan 31 08:00:00 EDT 2016 * End Date: null * Problem Family * Code: USER-Family * Start Date: SatJan 31 08:00:00 EDT 2016 * End Date: null * Problem Biomedical * Code: USER-Biomedical * Start Date: SatJan 31 08:00:00 EDT 2016 * End Date: null * Problem Emotional/Behavioral/State of Change * Code: USER-Emotional * Start Date: SatJan 31 08:00:00 EDT 2016 * End Date: null Procedures No Known Procedures Social History Social History Observation Description Jerome e Smoking Status Current Every Da y Smoker SatJun 13 07:00:00 EST 2020 Smoking Status Current Every Da y Smoker SatJun 13 07:00:00 EST 2020 Smoking Status Current Every Da y Smoker SatJun 13 07:00:00 EST 2020 Smoking Status Current Every Da y Smoker SatJun 13 07:00:00 EST 2020 Smoking Status Current Every Da y Smoker SatJun 13 07:00:00 EST 2020 Smoking Status Current Every Da y Smoker SatJun 13 07:00:00 EST 2020 Smoking Status Current Every Da y Smoker SatApr 04 08:00:00 EDT 2019 Smoking Status Current Every Da y Smoker SatApr 04 08:00:00 EDT 2019 Smoking Status Current Every Da y Smoker SatAug 20 08:00:00 EDT 2019 Smoking Status Current Every Da y Smoker SatAug 20 08:00:00 EDT 2019 Smoking Status Current Every Da y Smoker SatAug 20 08:00:00 EDT 2019 Sex Female SatJan 05 08:00:00 EDT 1987 Vital Signs Vital Sign Measurement Date Temperature 97.1 [DEGF] SatDec 28 13:25:00 EDT 2020 Temperature 36.2 SUSANA SatDec 09 13:25:00 EDT 2020 Heart Rate 82 /MIN SatDec 28 13:25:00 EDT 2020 Respiration 18 /MIN SatDec 09 13:25:00 EDT 2020 SpO2 98 % SatDec 28 13:25 :00 EDT 2020 Systolic 125 MM[HG] SatDec 28 1 3:25:00 EDT 2020 Diastolic 83 MM[HG] SatDec 28 13:25:00 EDT 2020 BP Position 2 Position SatDec 09 13:25:00 EDT 2020 Temperature 98.7 [DEGF] SatOctober 19 10:30:00 EDT 2020 Temperature 37.1 S[place]NA SatOctober 08 2 10:30:00 EDT 2020 Heart Rate 52 /MIN SatOctober 19 10:30:00 EDT 2020 Respiration 16 /MIN SatOctober 08 2 10:30:00 EDT 2020 SpO2 99 % SatOctober 19 10:30 :00 EDT 2020 Systolic 118 MM[HG] SatOctober 19 1 0:30:00 EDT 2020 Diastolic 85 MM[HG] SatOctober 19 10:30:00 EDT 2020 BP Position 2 Position SatOctober 08 10:30:00 EDT 2020 Height 4 9.0 ft SatOctober 19 10: 30:00 EDT 2020 Height 57 in SatOctober 19 10: 30:00 EDT 2020 Height 144.8 cm SatOctober 19 10: 30:00 EDT 2020 Weight Lbs 234 lbs SatOctober 19 10:30:00 EDT 2020 Weight Kgs 106.4 KG SatOctober 19 10:30:00 EDT 2020 BMI 50.6 SatOctober 19 10:30: 00 EDT 2020 Pain Scale 0 Scale SatOctober 19 10:30:00 EDT 2020 Temperature 97.5 [DEGF] SatApr 04 11:09:00 EDT 2019 Temperature 36.4 S[place]NA SatMar 11 6 11:09:00 EDT 2019 Heart Rate 69 /MIN SatApr 04 11:09:00 EDT 2019 Respiration 16 /MIN SatMar 11 6 11:09:00 EDT 2019 SpO2 98 % SatApr 04 11:09 :00 EDT 2019 Systolic 115 MM[HG] SatApr 04 1 1:09:00 EDT 2019 Diastolic 80 MM[HG] SatApr 04 11:09:00 EDT 2019 BP Position 2 Position SatMar 11 6 11:09:00 EDT 2019 Height 4 9 ft SatApr 04 11: 09:00 EDT 2019 Height 57 in SatApr 04 11: 09:00 EDT 2019 Height 144.8 cm SatApr 04 11: 09:00 EDT 2020 Weight Lbs 222 lbs SatApr 04 11:09:00 EDT 2020 Weight Kgs 100.9 KG SatApr 04 11:09:00 EDT 2020 BMI 48 SatApr 04 11:09: 00 EDT 2020 Pain Scale 3 Scale SatApr 04 11:09:00 EDT 2020 Temperature 97.4 [DEGF] Mon Feb 24 08:56:00 EST 2020 Temperature 36.3 S[place]NA Mon Feb 2 4 08:56:00 EST 2020 Heart Rate 86 /MIN Mon Feb 24 08:56:00 EST 2020 Systolic 123 MM[HG] Mon Feb 24 0 8:56:00 EST 2020 Diastolic 70 MM[HG] Mon Feb 24 08:56:00 EST 2020 Height 4 9 ft Mon Feb 24 08: 56:00 EST 2020 Height 57 in Mon Feb 24 08: 56:00 EST 2020 Height 144.8 cm Mon Feb 24 08: 56:00 EST 2020 Weight Lbs 180 lbs Mon Feb 24 08:56:00 EST 2020 Weight Kgs 81.8 KG Mon Feb 24 08:56:00 EST 2020 BMI 38.9 % Mon Feb 24 08:56: 00 EST 2020 Pain Scale 0 Scale Mon Feb 24 08:56:00 EST 2020 Temperature 97.6 [DEGF] Mon Feb 10 13:23:00 EST 2020 Temperature 36.4 S[place]NA Mon Feb 1 0 13:23:00 EST 2020 Heart Rate 55 /MIN Mon Feb 10 13:23:00 EST 2020 Respiration 18 /MIN Mon Feb 1 0 13:23:00 EST 2020 Systolic 104 MM[HG] Mon Feb 10 1 3:23:00 EST 2020 Diastolic 66 MM[HG] Mon Feb 10 13:23:00 EST 2020 BP Position 3 Position Mon Feb 1 0 13:23:00 EST 2020 Temperature 98.0 [DEGF] Sun Feb 09 10:52:00 EST 2020 Temperature 36.7 S[place]NA Sun Feb 0 9 10:52:00 EST 2020 Heart Rate 71 /MIN Sun Feb 09 10:52:00 EST 2020 Respiration 16 /MIN Sun Feb 0 9 10:52:00 EST 2020 Systolic 117 MM[HG] Sun Feb 09 1 0:52:00 EST 2020 Diastolic 65 MM[HG] Sun Feb 09 10:52:00 EST 2020 BP Position 3 Position Sun Feb 0 9 10:52:00 EST 2020 Temperature 98.5 [DEGF] Sat Feb 08 04:38:00 EST 2020 Temperature 36.9 S[place] Sat Feb 0 8 04:38:00 EST 2020 Heart Rate 54 /MIN Sat Feb 08 04:38:00 EST 2020 Respiration 12 /MIN Sat Feb 0 8 04:38:00 EST 2020 Systolic 100 MM[HG] Sat Feb 08 0 4:38:00 EST 2020 Diastolic 56 MM[HG] Sat Feb 08 04:38:00 EST 2020 BP Position 1 Position Sat Feb 0 8 04:38:00 EST 2020 Temperature 97.6 [DEGF] Fri Feb 07 17:43:00 EST 2020 Temperature 36.4 S[place]NA Fri Feb 0 7 17:43:00 EST 2020 Heart Rate 75 /MIN Fri Feb 07 17:43:00 EST 2020 Respiration 18 /MIN Fri Feb 0 7 17:43:00 EST 2020 Systolic 116 MM[HG] Fri Feb 07 1 7:43:00 EST 2020 Diastolic 76 MM[HG] Fri Feb 07 17:43:00 EST 2020 Temperature 97.7 [DEGF] Fri Feb 07 11:07:00 EST 2020 Temperature 36.5 S[place]NA Fri Feb 0 7 11:07:00 EST 2020 Heart Rate 62 /MIN Fri Feb 07 11:07:00 EST 2020 Respiration 16 /MIN Fri Feb 0 7 11:07:00 EST 2020 Systolic 119 MM[HG] Fri Feb 07 1 1:07:00 EST 2020 Diastolic 70 MM[HG] Fri Feb 07 11:07:00 EST 2020 BP Position 3 Position Fri Feb 0 7 11:07:00 EST 2020 Temperature 97.5 [DEGF] Fri Feb 07 06:02:00 EST 2020 Temperature 36.4 S[place] Fri Feb 0 7 06:02:00 EST 2020 Heart Rate 57 /MIN Fri Feb 07 06:02:00 EST 2020 Respiration 16 /MIN Fri Feb 0 7 06:02:00 EST 2020 Systolic 102 MM[HG] Fri Feb 07 0 6:02:00 EST 2020 Diastolic 68 MM[HG] Fri Feb 07 06:02:00 EST 2020 BP Position 1 Position Fri Feb 0 7 06:02:00 EST 2020 Temperature 97.9 [DEGF] Jie Feb 06 17:20:00 EST 2020 Temperature 36.6 S[place] Jie Feb 0 6 17:20:00 EST 2020 Heart Rate 60 /MIN Jie Feb 06 17:20:00 EST 2020 Respiration 16 /MIN Jie Feb 0 6 17:20:00 EST 2020 Systolic 115 MM[HG] Jie Feb 06 1 7:20:00 EST 2020 Diastolic 72 MM[HG] Jie Feb 06 17:20:00 EST 2020 Temperature 98.0 [DEGF] Jie Feb 06 13:13:00 EST 2020 Temperature 36.7 S[place] Jie Feb 0 6 13:13:00 EST 2020 Heart Rate 63 /MIN Jie Feb 06 13:13:00 EST 2020 Respiration 17 /MIN Jie Feb 0 6 13:13:00 EST 2020 Systolic 115 MM[HG] Jie Feb 06 1 3:13:00 EST 2020 Diastolic 66 MM[HG] Jie Feb 06 13:13:00 EST 2020 BP Position 3 Position Jie Feb 0 6 13:13:00 EST 2020 Temperature 97.1 [DEGF] Jie Feb 06 00:33:00 EST 2020 Temperature 36.2 S[place] Jie Feb 0 6 00:33:00 EST 2020 Heart Rate 60 /MIN Jie Feb 06 00:33:00 EST 2020 Respiration 16 /MIN Jie Feb 0 6 00:33:00 EST 2020 Systolic 116 MM[HG] Jie Feb 06 0 0:33:00 EST 2020 Diastolic 77 MM[HG] Jie Feb 06 00:33:00 EST 2020 BP Position 3 Position Jie Feb 0 6 00:33:00 EST 2020 Temperature 97.5 [DEGF] Wed Feb 05 19:53:00 EST 2020 Temperature 36.4 S[place] Wed Feb 0 5 19:53:00 EST 2020 Heart Rate 60 /MIN Wed Feb 05 19:53:00 EST 2020 Respiration 18 /MIN Wed Feb 0 5 19:53:00 EST 2020 Systolic 109 MM[HG] Wed Feb 05 1 9:53:00 EST 2020 Diastolic 65 MM[HG] Wed Feb 05 19:53:00 EST 2020 BP Position 1 Position Wed Feb 0 5 19:53:00 EST 2020 Temperature 98.6 [DEGF] Wed Feb 05 12:05:00 EST 2020 Temperature 37 S[place] Wed Feb 0 5 12:05:00 EST 2020 Heart Rate 73 /MIN Wed Feb 05 12:05:00 EST 2020 Respiration 18 /MIN Wed Feb 0 5 12:05:00 EST 2020 SpO2 98 % Wed Feb 05 12:05 :00 EST 2020 Systolic 115 MM[HG] Wed Feb 05 1 2:05:00 EST 2020 Diastolic 66 MM[HG] Wed Feb 05 12:05:00 EST 2020 BP Position 2 Position Wed Feb 0 5 12:05:00 EST 2020 Temperature 98.1 [DEGF] Sat Jun 18 10:20:00 EST 2020 Temperature 36.7 S[place] Sat Jun 10 8 10:20:00 EST 2020 Heart Rate 75 /MIN Sat Jun 27 10:20:00 EST 2020 Respiration 16 /MIN Sat Jun 10 8 10:20:00 EST 2020 Systolic 113 MM[HG] Sat Jun 27 1 0:20:00 EST 2020 Diastolic 77 MM[HG] Sat Jun 18 10:20:00 EST 2020 BP Position 3 Position Sat Jun 10 8 10:20:00 EST 2020 Temperature 97.1 [DEGF] Sat Jun 27 03:01:00 EST 2020 Temperature 36.2 S[place] Sat Jun 10 8 03:01:00 EST 2020 Heart Rate 71 /MIN Sat Jun 27 03:01:00 EST 2020 Respiration 16 /MIN Sat Jun 10 8 03:01:00 EST 2020 Systolic 114 MM[HG] Sat Jun 18 0 3:01:00 EST 2020 Diastolic 66 MM[HG] Sat Jun 18 03:01:00 EST 2020 Heart Rate 74 /MIN SatJun 26 20:15:00 EST 2020 Respiration 16 /MIN SatJun 10 7 20:15:00 EST 2020 Systolic 112 MM[HG] SatJun 26 2 0:15:00 EST 2020 Diastolic 63 MM[HG] SatJun 26 20:15:00 EST 2020 BP Position 3 Position SatJun 10 7 20:15:00 EST 2020 Temperature 98.0 [DEGF] SatJun 26 10:05:00 EST 2020 Temperature 36.7 [place] SatJun 10 7 10:05:00 EST 2020 Heart Rate 72 /MIN SatJun 26 10:05:00 EST 2020 Systolic 135 MM[HG] SatJun 26 1 0:05:00 EST 2020 Diastolic 86 MM[HG] SatJun 26 10:05:00 EST 2020 BP Position 3 Position SatJun 10 7 10:05:00 EST 2020 Temperature 97.8 [DEGF] SatJun 26 02:40:00 EST 2020 Temperature 36.6 [place] SatJun 10 7 02:40:00 EST 2020 Heart Rate 51 /MIN SatJun 26 02:40:00 EST 2020 Respiration 16 /MIN SatJun 10 7 02:40:00 EST 2020 Systolic 106 MM[HG] Sat 17 0 2:40:00 EST 2020 Diastolic 62 MM[HG] SatJun 26 02:40:00 EST 2020 BP Position 2 Position SatJun 10 7 02:40:00 EST 2020 Heart Rate 60 /MIN SatJun 25 18:24:00 EST 2020 Respiration 16 /MIN SatJun 10 6 18:24:00 EST 2020 Systolic 125 MM[HG] SatJun 25 1 8:24:00 EST 2020 Diastolic 87 MM[HG] SatJun 25 18:24:00 EST 2020 Temperature 97.3 [DEGF] SatJun 25 10:12:00 EST 2020 Temperature 36.3 [place] SatJun 10 6 10:12:00 EST 2020 Heart Rate 89 /MIN SatJun 25 10:12:00 EST 2020 Respiration 18 /MIN SatJun 10 6 10:12:00 EST 2020 Systolic 116 MM[HG] SatJun 25 1 0:12:00 EST 2020 Diastolic 79 MM[HG] SatJun 25 10:12:00 EST 2020 BP Position 3 Position SatJun 10 6 10:12:00 EST 2020 Temperature 97.4 [DEGF] SatJun 25 02:48:00 EST 2020 Temperature 36.3 [place] SatJun 10 6 02:48:00 EST 2020 Heart Rate 45 /MIN SatJun 25 02:48:00 EST 2020 Respiration 12 /MIN SatJun 10 6 02:48:00 EST 2020 Systolic 93 MM[HG] Sat 16 0 2:48:00 EST 2020 Diastolic 53 MM[HG] SatJun 25 02:48:00 EST 2020 BP Position 1 Position SatJun 10 6 02:48:00 EST 2020 Heart Rate 66 /MIN SatJun 24 18:20:00 EST 2020 Respiration 16 /MIN SatJun 10 5 18:20:00 EST 2020 Systolic 110 MM[HG] SatJun 24 1 8:20:00 EST 2020 Diastolic 65 MM[HG] SatJun 24 18:20:00 EST 2020 Temperature 97.2 [DEGF] SatJun 24 15:42:00 EST 2020 Temperature 36.2 S[place] SatJun 10 5 15:42:00 EST 2020 Heart Rate 70 /MIN SatJun 24 15:42:00 EST 2020 SpO2 98 % SatJun 24 15:42 :00 EST 2020 Systolic 128 MM[HG] SatJun 24 5:42:00 EST 2020 Diastolic 70 MM[HG] SatJun 24 15:42:00 EST 2020 BP Position 2 Position SatJun 10 15:42:00 EST 2020 Respiration 20 /MIN SatJun 10 10:38:00 EST 2020 Pain Scale 4 Scale SatJun 24 10:38:00 EST 2020 Temperature 97.2 [DEGF] SatJun 24 09:45:00 EST 2020 Temperature 36.2 [place] SatJun 10 09:45:00 EST 2020 Heart Rate 59 /MIN SatJun 24 09:45:00 EST 2020 Systolic 116 MM[HG] SatJun 24 0 9:45:00 EST 2020 Diastolic 76 MM[HG] SatJun 24 09:45:00 EST 2020 BP Position 2 Position SatJun 10 09:45:00 EST 2020 Height 4 9 ft SatJun 24 09: 45:00 EST 2020 Height 57 in SatJun 24 09: 45:00 EST 2020 Height 144.8 cm SatJun 24 09: 45:00 EST 2020 Weight Lbs 165 lbs SatJun 24 09:45:00 EST 2020 Weight Kgs 75 KG SatJun 24 09:45:00 EST 2020 BMI 35.7 % SatJun 24 09:45: 00 EST 2020 Temperature 98.0 [DEGF] [facility] Feb 07 12:39:00 EDT 2018 Temperature 36.7 S[place] SatJan 10 12:39:00 EDT 2018 Heart Rate 69 /MIN [facility] Feb 07 12:39:00 EDT 2018 Respiration 14 /MIN [facility] Jan 10 12:39:00 EDT 2019 SpO2 98 % [facility] Feb 07 12:39 :00 EDT 2018 Systolic 100 MM[HG] [facility] Feb 07 2:39:00 EDT 2018 Diastolic 59 MM[HG] [facility] Feb 07 12:39:00 EDT 2018
--- OUTSIDE RECORDS SUMMARY | 2021-03-23 20:15 | CCD ---
Author Author AutogeneDENISHA claros Autogene rated Organization [facility] HC Address Unknown Phone Unavailable Care Team Providers Care Adult Literacy Instructor Name Role Phone Yaron Lobato AttendingPractitioner1 Peyton Tavarez Practitioner Cassidy Strauss Practitioner Doa Junior AttendingPractitioner1 Javier Goldstein Practitioner Ambar Patel AdmittingPractitioner1 Donna Buenrostro Practitioner Swati Katz Practitioner Livia Nguyen AttendingPractitioner1 Kathryn Sinha Practitioner Namrata Armstrong Practitioner Nic Mitchell AttendingPractitioner1 Artemio Orantes Attgails Alvin Fields Practitioner Kyile Ann Practitioner Kodak Koo Practitioner Karla Person [...] Primary Diagnosis Admission Date/ Time Discharge Date/Time [facility] SatAug 27 14:15:00 EDT [facility] SatJul 10 16:04:00 EST 2018 [facility] SatSep 11 09:41:00 EDT [facility] Heroin use disorder, moderate, dependence SatApr 04 10:25:00 EDT 2019Jan 05 11:15:00 EDT [facility] SatOctober 08 11:40:00 EDT 2017 [facility] Drug abuse counseling and surveillance of drug abuser SatAug 03 08:19:00 EST 2019Feb 15 08:55:00 EDT 2019 [facility] SatJan 08 10:39:00 EDT 2017 [facility] Alcohol use disorder, severe SatJun 24 14:16:00 EST 2019Jun 27 13:25:00 EST 2019 [facility] SatJan 10 11:41:00 EDT 2016 [facility] SatAug 19 09:30:00 EDT 2019 [facility] Synthetic cannabinoid dependence SatJul 15 10:25:00 EST 2019Jul 18 14:14:00 EST 2019 [facility] SatSep 24 13:11:00 EDT 2018Mar 02 11:08:00 EDT 2019 [facility] Heroin use disorder, severe, on maintenance therapy, dependence SatAug 20 09:30:00 EDT 2019October 14 11:29:00 EDT 2019 [facility] Severe opioid use disorder SatJul 20 11:59:00 EST 2019Aug 01 17:29:00 EST 2019 [facility] SatSep 24 12:11:00 EDT 2019 [facility] Sat Jan 12 09:36:00 EDT 2016 [facility] Polysubstance abuse Wed Jun 24 09:10:00 EST 2019Aug 03 08:17:00 EST 2020 [place] [facility] davey abinoid dependence SatDec 28 10:30:00 EDT 2020 Wed Jan 25 11:30:00 EDT 2020 [facility] Wed J an 15 02:02:00 EST 2020 [facility] Wait[facility] SatJan 09 10:42:00 EDT 2016 [facility] Synthetic cannabinoid dependence Sat Jul 18 14:16:00 EST 2019 Mon Jul 20 11:58:00 EST 2019 [facility] Wait[facility] SatJun 13 13:54:00 EST 2020Jun 27 17:13:00 EST 2020 [facility] SatOct 01 08:57:00 EDT 2019Nov 19 13:39:00 EDT 2019 Immunizations No Known Immunizations Lab Results Result Type Result Value Date Benzodiazepines NEGATIVE ng/mL S at Jun 27 [...] at: DNR Sat Jun 27 15:16:00 EST 2019 COMMENT Sat Jun 27 15 :16:00 EST 2019 Cocaine Metabolite POSITIVE ng/mL Sat Jun 27 15:16:00 EST 2020 Benzoylecgonine 171 ng/mL Sat J an 18 15:16:00 EST 2020 Confirmation Testing Performed at: DNR Sat Jun 27 15:16:00 EST 2019 COMMENT Sat Jun 27 15 :16:00 EST [...] ng/mL Sat Jun 27 15 :16:00 EST 2020 Hydrocodone DNR ng/mL Sat Jun 10 15:16:00 EST 2020 Hydromorphone DNR ng/mL Sat Jun 27 15:16:00 EST 2020 Morphine DNR ng/mL Sat Jun 27 1 5:16:00 EST 2020 Norhydrocodone DNR ng/mL Sat Ja n 18 15:16:00 EST 2020 [...] 28 13:4 2:00 EST 2020 COMMENTS DNR Sun Jun 28 3:42:00 EST 2020 NOTE DNR Sun [...] 07:16:00 EST 2020 CASTS DNR /LPF Jie Feb 06 07:1 6:00 EST 2020 YEAST FEW /HPF Jie Feb 06 07:1 6:00 EST 2020 COMMENTS DNR Jie Feb 06 0 7:16:00 EST 2020 NOTE DNR Jie Feb 06 07:16 :00 EST 2020 HIV AG/AB, 4TH GEN NON-REACTIVE SatJul 31 11:33:00 EST 2020 CHLAMYDIA TRACHOMATIS RNA, TMA, UROGENITAL TNP SatJul 31 11:33:00 2020 NEISSERIA GONORRHOEAE RNA, TMA, UROGENITAL DNR SatJul 31 11:33:00 EST 2020 SURESWAB(R) TRICHOMONAS VAGINALIS RNA, QL, TMA TNP SatJul 31 11:33:00 2020 SURESWAB(R), MYCOPLASMA GENITALIUM,REALTIME PCR TNP SatJul 31 11:33:00 2020 ASSAY DETAILS TNP SatJul 31 11:33:00 2020 CHLAMYDIA TRACHOMATIS RNA, TMA, UROGENITAL Not Detected SatJul 31 11:33:00 2020 NEISSERIA GONORRHOEAE RNA, TMA, UROGENITAL Not Detected SatJul 31 11:33:00 EST 2020 SURESWAB(R) TRICHOMONAS VAGINALIS RNA, QL, T MA Detected SatJul 31 11:33:00 EST 2020 SURESWAB(R), MYCOPLASMA GENITALIUM,REALTIME PCR Not Detected SatJul 31 11:33:00 2020 ASSAY DETAILS See Note SatJul 31 11:33:00 EST 2020 GLUCOSE 79 mg/dL SatJul 31 11 :33:00 2020 UREA NITROGEN (BUN) 11 mg/dL F ri Jul 31 11:33:00 EST 2020 CREATININE 0.78 mg/dL SatJul 31 11:33:00 EST 2020 eGFR NON-AFR. TONGAN 101 mL/min/1.73m2 Sat Feb 11:33:00 EST 2020 eGFR 117 mL/min/1.73m2 Sat Feb 11:33:00 2020 BUN/CREATININE RATIO NOT APPLICABLE (calc ) Sat Feb 11:33:00 EST 2020 SODIUM 135 mmol/L Sat Feb 11: 33:00 EST 2020 POTASSIUM 4.8 mmol/L Sat Feb 11:33:00 EST 2020 CHLORIDE 102 mmol/L Sat Feb 1 1:33:00 EST 2020 CARBON DIOXIDE 26 mmol/L Sat Fe b 11:33:00 2020 CALCIUM 9.0 mg/dL Sat Feb 11 :33:00 2020 PROTEIN, TOTAL 6.4 g/dL Sat Fe b 11:33:00 2020 ALBUMIN 3.6 g/dL Sat Feb 11 :33:00 EST 2020 GLOBULIN 2.8 g/dL (calc) Satb 11:33:00 2020 ALBUMIN/GLOBULIN RATIO 1.3 (calc) Satb 11:33:00 2020 BILIRUBIN, TOTAL 0.3 mg/dL Sat Feb 11:33:00 2020 ALKALINE PHOSPHATASE 71 U/L Sat Feb 11:33:00 EST 2020 AST 19 U/L Sat Feb 11:33: 00 2020 ALT 19 U/L Sat Feb 11:33: 00 2020 WHITE BLOOD CELL COUNT 9.0 Thousand/uL Satb 11:33:00 2020 RED BLOOD CELL COUNT 4.58 Million/uL Satb 11:33:00 2020 HEMOGLOBIN 14.7 g/dL Sat Feb 11:33:00 EST 2020 HEMATOCRIT 43.1 % Sat Feb 11:33:00 EST 2020 MCV 94.1 fL Sat Feb 11:33: 00 EST 2020 MCH 32.1 pg Sat Feb 11:33: 00 2020 MCHC 34.1 g/dL Sat Feb 11:33 :00 2020 RDW 13.6 % Sat Feb 11:33: 00 EST 2020 PLATELET COUNT 284 Thousand/uL F Feb 11:33:00 EST 2020 MPV 11.4 fL Sat Feb 11:33: 00 EST 2020 ABSOLUTE NEUTROPHILS 5724 cells/uL Satb 11:33:00 EST 2020 ABSOLUTE BAND NEUTROPHILS DNR cells/uL Fri Feb 21 11:33:00 EST 2020 ABSOLUTE METAMYELOCYTES DNR cells/uL Fri Feb 21 11:33:00 EST 2020 ABSOLUTE MYELOCYTES DNR cells/uL Fri Feb 21 11:33:00 EST 2020 ABSOLUTE PROMYELOCYTES DNR cells/uL Fri Feb 21 11:33:00 EST 2020 ABSOLUTE LYMPHOCYTES 2682 cells/uL Fri Feb 21 11:33:00 EST 2020 ABSOLUTE MONOCYTES 459 cells/uL Fri Feb 21 11:33:00 EST 2020 ABSOLUTE EOSINOPHILS 99 cells/uL Fri Feb 21 11:33:00 EST 2020 ABSOLUTE BASOPHILS 36 cells/uL F ri Feb 21 11:33:00 EST 2020 ABSOLUTE BLASTS DNR cells/uL Fri Feb 21 11:33:00 EST 2020 ABSOLUTE NUCLEATED RBC DNR cells/uL Sat Feb 21 11:33:00 EST 2020 NEUTROPHILS 63.6 % Fri Feb 2 1 11:33:00 EST 2020 BAND NEUTROPHILS DNR % Fri Feb 21 11:33:00 EST 2020 METAMYELOCYTES DNR % Fri Fe b 21 11:33:00 EST 2020 MYELOCYTES DNR % Fri Feb 21 11:33:00 EST 2020 PROMYELOCYTES DNR % Fri Feb 21 11:33:00 EST 2020 LYMPHOCYTES 29.8 % Fri Feb 2 1 11:33:00 EST 2020 REACTIVE LYMPHOCYTES DNR % Fri Feb 21 11:33:00 EST 2020 MONOCYTES 5.1 % Fri Feb 11:33:00 EST 2020 EOSINOPHILS 1.1 % Fri Feb 2 1 11:33:00 EST 2020 BASOPHILS 0.4 % Fri Feb 21 11:33:00 EST 2020 BLASTS DNR % Sat Feb 11: 33:00 EST 2020 NUCLEATED RBC DNR /100 WBC Fri F eb 21 11:33:00 EST 2020 COMMENT(S) DNR Sat Feb 11:33:00 EST 2020 HEPATITIS C ANTIBODY REACTIVE Fri Feb 11:33:00 EST 2020 SIGNAL TO CUT-OFF 31.20 Sat Feb 11:33:00 EST 2020 RPR (DX) W/REFL TITER AND CONFIRMATORY TESTI NG NON-REACTIVE Satb 11:33:00 EST 2020 HCV RNA, QUANTITATIVE REAL TIME PCR SatJul 17 08:31:00 EST 2020 HCV RNA, QUANTITATIVE REAL TIME PCR SatJul 17 08:31:00 EST 2020 HCV RNA, QUANTITATIVE REAL TIME PCR Fri Feb 07 09:29:00 EST 2020 HCV RNA, QUANTITATIVE REAL TIME PCR Fri Feb 07 09:29:00 EST 2020 HCV RNA, QUANTITATIVE REAL TIME PCR <15 NOT DETECTED IU/mL e Feb 11 05:49:00 EST 2020 HCV RNA, QUANTITATIVE REAL TIME PCR <1.18 NOT DETECTED Log IU/mL e Feb 11 05:49:00 EST 2020 COMMENT Sat Feb 11 05 :49:00 EST 2020 HCV RNA, QUANTITATIVE REAL TIME PCR <15 NOT DETECTED IU/mL Fri Feb 21 11:33:00 EST 2020 HCV RNA, QUANTITATIVE REAL TIME PCR <1.18 NOT DETECTED Log IU/mL Fri Feb 11:33:00 EST 2020 COMMENT Sat Feb 11 :33:00 EST 2020 CREATININE, RANDOM URINE [...] BILIRUBIN DNR Jie F eb 27 06:57:00 2019 GGT DNR Jie Feb 27 06:57: 00 2019 ALT DNR Jie Feb 27 06:57: 00 2019 REFERENCE ID DNR Jie Feb 27 06:57:00 2019 FOOTNOTE DNR Jie Feb 27 0 6:57:00 2019 SODIUM 138 mmol/L SatAug 10 23: 32:00 2019 POTASSIUM 4.2 mmol/L SatAug 10 23:32:00 2019 CHLORIDE 106 mmol/L SatAug 10 2 3:32:00 2019 CARBON DIOXIDE 23 mmol/L Sat r 23:32:00 2019 CREATININE, RANDOM URINE 104 mg/dL SatAug 10:32:00 2019 ALBUMIN, URINE 92.9 mg/dL Sat Az r 03 23:32:00 2019 ALBUMIN/CREATININE RATIO, RANDOM URINE 893 mcg/mg creat SatAug 10:32:00 2019 CREATININE 0.71 mg/dL SatAug 10:32:00 2019 eGFR NON-AFR. TONGAN 113 mL/min/1.73m2 SatAug 10 23:32:00 2019 eGFR 132 mL/min/1.73m2 SatAug 10:32:00 2019 HEMOGLOBIN 13.2 g/dL SatAug 10:32:00 2019 PARATHYROID HORMONE, INTACT 34 pg/mL SatAug 10:32:00 2019 CALCIUM 8.8 mg/dL SatAug 10 :32:00 2019 PHOSPHATE ( PHOSPHORUS) 4.3 mg/dL SatAug 10:32:00 2019 VITAMIN D,25-OH,TOTAL,IA 19 ng/mL SatAug 10:32:00 2019 PROTEIN, TOTAL 6.8 g/dL Sat r 03 :32:00 2019 ALBUMIN 3.7 g/dL SatAug 10 :32:00 2019 GLOBULIN 3.1 g/dL (calc) SatAug 10:32:00 2019 ALBUMIN/GLOBULIN RATIO 1.2 (calc) SatAug 10:32:00 2019 BILIRUBIN, TOTAL 0.2 mg/dL SatAug 10:32:00 2019 BILIRUBIN, DIRECT 0.0 mg/dL Tue Mar 03 23:32:00 EST 2020 BILIRUBIN, INDIRECT 0.2 mg/dL (calc) SatAug 10 23:32:00 EST 2020 ALKALINE PHOSPHATASE 78 U/L SatAug 10 23:32:00 EST 2020 AST 37 U/L SatAug 10 23:32: 00 EST 2020 ALT 35 U/L SatAug 10 23:32: 00 EST 2020 HEPATITIS C VIRAL RNA GENOTYPE, LIPA(R) Not Detected SatAug 10 23:32:00 EST 2020 COLOR TNP SatAug 10 23:3 2:00 EST [...] 23:32:00 EST 2020 ABSOLUTE BLASTS DNR cells/uL SatAug 10 23:32:00 EST 2020 ABSOLUTE NUCLEATED RBC DNR cells/uL SatAug 10 23:32:00 EST 2020 NEUTROPHILS 57.4 % Sat 0 3 23:32:00 EST 2020 BAND NEUTROPHILS DNR % SatAug 10 23:32:00 EST 2020 METAMYELOCYTES DNR % Sat 03 23:32:00 EST 2020 MYELOCYTES DNR % SatAug 10 23:32:00 EST 2020 PROMYELOCYTES DNR % SatAug 10 23:32:00 EST 2020 LYMPHOCYTES 33.9 % Sat 0 3 23:32:00 EST 2020 REACTIVE LYMPHOCYTES DNR % SatAug 10 23:32:00 EST 2020 MONOCYTES 4.9 % Sat 03 23:32:00 EST 2020 EOSINOPHILS 3.4 % Sat Mar 0 3 23:32:00 EST 2020 BASOPHILS 0.4 % Sat 03 23:32:00 EST 2020 BLASTS DNR % SatAug 10 23: 32:00 EST 2020 NUCLEATED RBC DNR /100 WBC e M ar 03 23:32:00 EST 2020 COMMENT(S) DNR SatAug 10 [...] EST 2020 CREATININE, RANDOM URINE 106 mg/dL SatAug 07 12:48:00 EST 2020 Benzodiazepines NEGATIVE ng/mL F ri Aug 07 12:48:00 EST 2020 Alphahydroxyalprazolam DNR ng/mL SatAug 07 12:48:00 EST 2020 Alphahydroxymidazolam DNR ng/mL Fri [...] EST 2020 Confirmation Testing Performed at: DNR SatAug 07 12:48:00 EST 2020 COMMENT SatAug 07 12 :48:00 EST 2020 Buprenorphine SatAug 07 12:48:00 EST 2019 Norbuprenorphine SatAug 07 12:48:00 EST 2019 CREATININE, RANDOM URINE 30 mg/dL Sun Mar 15 14:55:00 EDT 2020 Benzodiazepines NEGATIVE ng/mL S un Mar 15 14:55:00 EDT 2020 Alphahydroxyalprazolam DNR ng/mL Sun [...] ng/mL Sun Mar 1 5 14:55:00 EDT 2019 Oxazepam DNR ng/mL Sun Mar 15 1 [...] at: DNR Sun Mar 15 14:55:00 EDT 2019 COMMENT [...] DNR ng/mL Sun Mar 15 14:55:00 EDT 2019 Confirmation Testing Performed at: DNR Sun Mar [...] 58 ng/mL Sun Mar 15 14:55:00 EDT 2020 Norbuprenorphine 120 ng/mL Sun Mar 15 14:55:00 EDT 2020 COMMENT Sun Mar 15 14 :55:00 EDT 2020 CREATININE, RANDOM URINE 30 mg/dL Sat Mar 21 12:48:00 EDT 2020 Benzodiazepines NEGATIVE ng/mL S at Mar 21 12:48:00 EDT 2020 Alphahydroxyalprazolam DNR ng/mL Sat Mar 21 12:48:00 EDT 2020 Alphahydroxymidazolam DNR ng/mL Sat Mar 21 12:48:00 EDT 2020 Alphahydroxytriazolam DNR ng/mL Sat Mar 21 12:48:00 EDT 2020 Aminoclonazepam DNR ng/mL Sat M ar 21 12:48:00 EDT 2020 Hydroxyethylflurazepam DNR ng/mL Sat Mar 21 12:48:00 EDT 2020 Lorazepam DNR ng/mL Sat Mar 21 12:48:00 EDT 2020 Nordiazepam DNR ng/mL Sat Mar 2 1 12:48:00 EDT 2020 Oxazepam DNR ng/mL Sat Mar 21 1 2:48:00 EDT 2020 Temazepam DNR ng/mL Sat Mar 21 12:48:00 EDT 2020 Confirmation Testing Performed at: DNR Sat Mar 21 12:48:00 EDT 2020 COMMENT Sat Mar 21 12 :48:00 EDT 2020 Cocaine Metabolite NEGATIVE ng/mL Sat Mar 21 12:48:00 EDT 2020 Benzoylecgonine DNR ng/mL Sat M ar 21 12:48:00 EDT 2020 Confirmation Testing Performed at: DNR Sat Mar 21 12:48:00 EDT 2019 COMMENT Sat Mar 21 12 :48:00 EDT 2020 Alcohol, Ethyl NEGATIVE mg/dL Sa t Mar 21 12:48:00 EDT 2020 Alcohol, Ethyl DNR mg/dL Sat Ma r 21 12:48:00 EDT 2019 Confirmation Testing Performed at: DNR Sat Mar 21 12:48:00 EDT 2019 COMMENT Sat Aug 21 12 :48:00 EDT 2019 Marijuana Metabolite 20 NEGATIVE ng/mL Sat Aug 21 12:48:00 EDT 2019 Marijuana Metabolite DNR ng/mL Sat Mar 21 12:48:00 EDT 2019 Confirmation Testing Performed at: DNR Sat Aug 21 12:48:00 EDT 2019 COMMENT Sat Aug 21 12 :48:00 EDT 2019 Opiates NEGATIVE ng/mL Sat Aug 2 1 12:48:00 EDT 2019 Codeine DNR ng/mL Sat Aug 28 12 :48:00 EDT 2019 Hydrocodone DNR ng/mL Sat Aug 2 1 12:48:00 EDT 2019 Hydromorphone DNR ng/mL Sat Aug 28 12:48:00 EDT 2019 Morphine DNR ng/mL Sat Aug 21 1 2:48:00 EDT 2019 Norhydrocodone DNR ng/mL Sat Ma r 21 12:48:00 EDT 2019 Confirmation Testing Performed at: DNR Sat Aug 28 12:48:00 EDT 2019 COMMENT Sat Mar 12 :48:00 EDT 2019 Buprenorphine 101 ng/mL Sat Aug 28 12:48:00 EDT 2019 Norbuprenorphine 158 ng/mL Sat Aug 28 12:48:00 EDT 2019 COMMENT Sat Aug 21 12 :48:00 EDT 2019 CREATININE, RANDOM URINE 59 mg/dL Jie Sep 02 11:27:00 EDT 2019 Benzodiazepines NEGATIVE ng/mL T hu Sep 02 11:27:00 EDT 2019 Alphahydroxyalprazolam DNR ng/mL Jie Sep 02 11:27:00 EDT 2019 Alphahydroxymidazolam DNR ng/mL Jie Sep 02 11:27:00 EDT 2019 Alphahydroxytriazolam DNR ng/mL Jie Sep 02 11:27:00 EDT 2019 Aminoclonazepam DNR ng/mL Jie ar 11:27:00 EDT 2019 Hydroxyethylflurazepam DNR ng/mL Jie Sep 02 11:27:00 EDT 2019 Lorazepam DNR ng/mL Jie Sep 02 11:27:00 EDT 2019 Nordiazepam DNR ng/mL Jie Aug 2 6 11:27:00 EDT 2019 Oxazepam DNR ng/mL Jie Sep 02 1 1:27:00 EDT 2019 Temazepam DNR ng/mL Jie Sep 02 11:27:00 EDT 2020 Confirmation Testing Performed at: DNR Jie Sep 02 11:27:00 EDT 2019 COMMENT Jie Sep 02 11 :27:00 EDT 2020 Cocaine Metabolite NEGATIVE ng/mL Jie Sep 02 11:27:00 EDT 2019 Benzoylecgonine DNR ng/mL Jie M 11:27:00 EDT 2020 Confirmation Testing Performed at: DNR Jie Sep 02 11:27:00 EDT 2019 COMMENT Jie Sep 02 11 :27:00 EDT 2019 Alcohol, Ethyl NEGATIVE mg/dL Th u Sep 02 11:27:00 EDT 2019 Alcohol, Ethyl DNR mg/dL Jie Ma r 11:27:00 EDT 2020 Confirmation Testing Performed at: DNR Jie Sep 02 11:27:00 EDT 2019 COMMENT Jie Sep 02 11 :27:00 EDT 2020 Marijuana Metabolite 20 NEGATIVE ng/mL Jie Sep 02 11:27:00 EDT 2019 Marijuana Metabolite DNR ng/mL Jie Sep 02 11:27:00 EDT 2020 Confirmation Testing Performed at: DNR Jie Sep 02 11:27:00 EDT 2019 COMMENT Jie Sep 02 11 :27:00 EDT 2019 Opiates NEGATIVE ng/mL Jie Aug 09 6 11:27:00 EDT 2019 Codeine DNR ng/mL Jie Sep 02 11 :27:00 EDT 2020 Hydrocodone DNR ng/mL Jie Aug 09 6 11:27:00 EDT 2020 Hydromorphone DNR ng/mL Jie Sep 02 11:27:00 EDT 2020 Morphine DNR ng/mL Jie Sep 02 1 1:27:00 EDT 2020 Norhydrocodone DNR ng/mL Jie Ma r 26 11:27:00 EDT 2020 Confirmation Testing Performed at: DNR Jie Sep 02 11:27:00 EDT 2019 COMMENT Jie Sep 02 11 :27:00 EDT 2020 Buprenorphine Jie Sep 02 11:27:00 EDT 2020 Norbuprenorphine Jie Sep 02 11:27:00 EDT 2020 CREATININE, RANDOM URINE 15 mg/dL SatSep 17 01:48:00 EDT 2019 Fentanyl NEGATIVE ng/mL SatSep 17:48:00 EDT 2019 Norfentanyl NEGATIVE ng/mL Sat pr 03 10:48:00 EDT 2019 COMMENT SatSep 17 :48:00 EDT 2019 Benzodiazepines NEGATIVE ng/mL F ri Sep 17:48:00 EDT 2019 Alphahydroxyalprazolam DNR ng/mL SatSep 17:48:00 EDT 2019 Alphahydroxymidazolam DNR ng/mL SatSep 17:48:00 EDT 2019 Alphahydroxytriazolam DNR ng/mL SatSep 17:48:00 EDT 2019 Aminoclonazepam DNR ng/mL Sat pr 03 10:48:00 EDT 2019 Hydroxyethylflurazepam DNR ng/mL SatSep 17:48:00 EDT 2019 Lorazepam DNR ng/mL SatSep 17 01:48:00 EDT 2019 Nordiazepam DNR ng/mL SatSep 08 0 01:48:00 EDT 2019 Oxazepam DNR ng/mL SatSep 17 0 1:48:00 EDT 2019 Temazepam DNR ng/mL SatSep 17 01:48:00 EDT 2019 Confirmation Testing Performed at: DNR SatSep 17:48:00 EDT 2019 COMMENT SatSep 17 :48:00 EDT 2019 Cocaine Metabolite NEGATIVE ng/mL SatSep 17:48:00 EDT 2019 Benzoylecgonine DNR ng/mL Sat pr 03 10:48:00 EDT 2019 Confirmation Testing Performed at: DNR SatSep 17:48:00 EDT 2019 COMMENT SatSep 17 :48:00 EDT 2019 Alcohol, Ethyl NEGATIVE mg/dL Fr i Sep 17 01:48:00 EDT 2019 Alcohol, Ethyl DNR mg/dL Fri r 10 01:48:00 EDT 2019 Confirmation Testing Performed at: DNR SatSep 17:48:00 EDT 2019 COMMENT SatSep 17 :48:00 EDT 2019 Marijuana Metabolite 20 NEGATIVE ng/mL SatSep 17:48:00 EDT 2019 Marijuana Metabolite DNR ng/mL SatSep 17:48:00 EDT 2019 Confirmation Testing Performed at: DNR Fri Apr 10 01:48:00 EDT 2020 COMMENT Sat 10 01 :48:00 EDT 2020 Opiates NEGATIVE ng/mL Fri Apr 1 0 01:48:00 EDT 2019 Codeine DNR ng/mL Sat 10 01 :48:00 EDT 2019 Hydrocodone DNR ng/mL Sat Apr 1 0 01:48:00 EDT 2019 Hydromorphone DNR ng/mL Sat 10 01:48:00 EDT 2019 Morphine DNR ng/mL Sat 10 0 1:48:00 EDT 2020 Norhydrocodone DNR ng/mL Fri Ap r 10 01:48:00 EDT 2020 Confirmation Testing Performed at: DNR SatSep 17 [...] 01 02:02:00 EDT 2019 Nordiazepam DNR ng/mL Sat 2 4 02:02:00 EDT 2019 Oxazepam DNR ng/mL SatOct 01 0 2:02:00 EDT 2019 Temazepam DNR ng/mL SatOct 01 02:02:00 EDT 2019 Confirmation Testing Performed at: DNR SatOct 01 02:02:00 EDT 2019 COMMENT SatOct 01 02 :02:00 EDT 2019 Cocaine Metabolite NEGATIVE ng/mL SatOct 01 02:02:00 EDT 2019 Benzoylecgonine DNR ng/mL Sat pr 24 02:02:00 EDT 2019 Confirmation Testing Performed [...] Metabolite 20 NEGATIVE ng/mL SatOct 01 02:02:00 EDT 2019 Marijuana Metabolite DNR ng/mL SatOct 01 02:02:00 EDT 2019 Confirmation Testing Performed at: DNR SatOct 01 02:02:00 EDT 2019 COMMENT SatOct 01 02 :02:00 EDT 2019 Opiates NEGATIVE ng/mL SatSep 09 4 02:02:00 EDT 2019 Codeine DNR ng/mL SatOct 01 02 :02:00 EDT 2019 Hydrocodone DNR ng/mL SatSep 09 4 02:02:00 EDT 2019 Hydromorphone DNR ng/mL SatOct 01 02:02:00 EDT 2019 Morphine DNR ng/mL SatOct 01 0 2:02:00 EDT 2019 Norhydrocodone DNR ng/mL Sat Ap r 02:02:00 EDT 2019 Confirmation Testing Performed at: DNR SatOct 01 02:02:00 EDT 2019 COMMENT SatOct 01 02 :02:00 EDT 2019 Buprenorphine 48 ng/mL SatOct 01 02:02:00 EDT 2019 Norbuprenorphine 129 ng/mL SatOct 01 02:02:00 EDT 2019 COMMENT SatOct 01 02 :02:00 EDT 2019 Creatinine 92.2NORMALNORMAL mg/d L SatOctober 15 15:17:08 EDT 2019 pH 5.3NORMALNORMAL SatOctober 15 15:17:08 EDT 2019 Oxidants -7.00NegativeNegative m cg/mL SatOctober 15 15:17:08 EDT 2019 Validity Result VALIDVALIDVALID SatOctober 16 15:29:21 EDT 2019 Amphetamines 509.00PRESUMPTIVE P OSITIVEPRESUMPTIVE POSITIVE ng/mL SatOctober 15:17:07 EDT 2020 Barbiturates 11.00NegativeNegative* ng/mL SatOctober 15 15:17:08 EDT 2020 Benzodiazepines -11.00Negative *Negative ng/mL SatOctober 15:17:08 EDT 2020 Buprenorphine 105.10PRESUMPTIVE POSITIVEPRESUMPTIVE POSITIVE ng/mL SatOctober 15:17:08 EDT 2020 Cocaine Metabolites 15.00Negativ eNegative ng/mL SatOctober 15:17:08 EDT 2020 Cotinine 1323.00PRESUMPTIVE POSI TIVEPRESUMPTIVE POSITIVE ng/mL SatOctober 15::08 EDT 2020 EDDP -121.00NegativeNegative ng/ mL SatOctober 15:17:08 EDT 2020 Ethyl Glucuronide 177.00Negative Negative ng/mL SatOctober 15::08 EDT 2020 Ethyl Alcohol -2.00NegativeNegative mg/dL SatOctober 15:17:08 EDT 2020 Fentanyl 1.500PRESUMPTIVE POSITI VEPRESUMPTIVE POSITIVE ng/mL SatOctober 15:17:08 EDT 2020 Heroin (6-AM) 0.30NegativeNegative* ng/mL SatOctober 15:17:09 EDT 2020 K2-3 -0.20NegativeNegative ng/mL SatOctober 15 15:17:09 EDT 2020 Methadone -33.00NegativeNegative ng/mL SatOctober 15 15:17:09 EDT 2020 Opiates -31.00NegativeNegative n g/mL SatOctober 15 15:17:09 EDT 2020 Synthetic Opiates -18.00Negative Negative ng/mL SatOctober 15:17:09 EDT 2020 Phencyclidine 6.70NegativeNegative* ng/mL SatOctober 15:17:09 EDT 2020 Cannabinoids -12.20NegativeNegative ng/mL SatOctober 15 15:17:09 EDT 2020 Tramadol 16.00NegativeNegative n g/mL SatOctober 15 15:17:10 EDT 2019 Tricyclics 523.00PRESUMPTIVE POS ITIVEPRESUMPTIVE POSITIVE ng/mL SatOctober 15 15:17:10 EDT 2019 Ecstasy (MDMA) 94.00NegativeNegativ e ng/mL SatOctober 15 15:17:10 EDT 2020 Buprenorphine 250Positive - Cons istentPOSITIVE> ng/mL SatOctober 16 14:39:04 EDT 2019 Norbuprenorphine 393.530Positive - ConsistentPOSITIVE ng/mL SatOctober 16 14:39:04 EDT 2020 Naloxone 834.520Positive - Incon sistentPOSITIVE ng/mL SatOctober 16 14:39:04 EDT 2019 Norfentanyl 0.210NegativeNegative * ng/mL SatOctober 16 14:39:04 [...] 1.090Negative *Negative ng/mL SatOctober 16 14:39:05 EDT 2019 Doxepin 8.060NegativeNegative ng /mL SatOctober 16 14:39:05 EDT 2020 Imipramine 6.300NegativeNegative ng/mL [facility] October 16 14:39:05 EDT 2019 Nortriptyline 5.360NegativeNegative ng/mL [facility] October 16 14:39:05 EDT 2019 Amitriptyline 11.540NegativeNegativ e ng/mL [facility] October 16 14:39:05 EDT 2019 Clomipramine 8.540NegativeNegative* ng/mL [facility] October 16 14:39:05 EDT 2019 Desipramine 5.480NegativeNegative * ng/mL [facility] October 16 14:39:06 EDT 2020 Creatinine 204.1NORMALNORMAL mg/ dL [facility] Feb 03 14:38:10 EDT 2019 pH 6.3NORMALNORMAL SatFeb 03 14:38:32 EDT 2020 Oxidants -17.00NegativeNegative mcg/mL [facility] Feb 03 14:36:48 EDT 2019 Validity Result VALIDVALIDVALID Jie Feb 03 14:45:22 EDT 2020 Amphetamines 209.00NegativeNegative ng/mL [facility] Feb 03 14:33:53 EDT 2020 Barbiturates -15.00NegativeNegative ng/mL [facility] Feb 03 14:34:12 EDT 2020 Benzodiazepines -31.00Negative *Negative ng/mL [facility] Feb 03 14:34:21 EDT 2020 Buprenorphine 0.80NegativeNegative* ng/mL Jie Feb 03 14:34:27 EDT 2020 Cocaine Metabolites 175.00Negati veNegative ng/mL Jie Feb 03 14:35:00 EDT 2020 Cotinine 1671.00PRESUMPTIVE POSI TIVEPRESUMPTIVE POSITIVE ng/mL Jie Feb 03 14:35:07 EDT 2020 EDDP -91.00NegativeNegative ng/m L [facility] Feb 03 14:35:14 EDT 2020 Ethyl Glucuronide 26.00Negative* Negative ng/mL [facility] Feb 03 14:35:21 EDT 2020 Ethyl Alcohol 7.00NegativeNegative* mg/dL [facility] Feb 03 14:35:46 EDT 2020 Fentanyl 0.100NegativeNegative n g/mL [facility] Feb 03 14:35:53 EDT 2020 Heroin (6-AM) -1.30NegativeNegative ng/mL [facility] Feb 03 14:35:59 EDT 2020 Methadone -37.00NegativeNegative ng/mL [facility] Feb 03 14:36:13 EDT 2020 Opiates -32.00NegativeNegative n g/mL [facility] Feb 03 14:36:28 EDT 2020 Synthetic Opiates -13.00Negative Negative ng/mL [facility] Feb 03 14:37:06 EDT 2020 Phencyclidine -4.90NegativeNegative ng/mL [facility] Feb 03 14:37:16 EDT 2020 Cannabinoids 7.80NegativeNegative * ng/mL [facility] Feb 03 14:37:27 EDT 2020 Tramadol -18.00NegativeNegative ng/mL [facility] Feb 03 14:37:51 EDT 2020 Tricyclics 16.00NegativeNegative ng/mL [facility] Feb 03 14:38:40 EDT 2020 Ecstasy (MDMA) -1.00NegativeNegativ e ng/mL [facility] Feb 03 14:38:49 EDT 2020 Buprenorphine 0.000Negative - In consistentNegative ng/mL SatFeb 04 11:55:39 EDT 2020 Norbuprenorphine 0.620Negative - InconsistentNegative ng/mL SatFeb 04 11:55:39 EDT 2020 Naloxone 0.000Negative - Inconsi stentNegative ng/mL SatFeb 04 11:55:39 EDT 2020 Creatinine 30.8NORMALNORMAL mg/d L Jie Apr 14 20:51:41 2019 pH 8.2NORMALNORMAL Jie Apr 14 20:51:41 2019 Oxidants -14.00NegativeNegative mcg/mL Jie Apr 14:51:41 2019 Validity Result VALIDVALIDVALID Jie Apr 14 21:00:28 2019 Amphetamines 62.00NegativeNegative* ng/mL Jie Apr 14 20:51:41 2019 Barbiturates 0.00NegativeNegative * ng/mL Jie Apr 14:51:41 2019 Benzodiazepines -3.00Negative Negative ng/mL Jie Apr 14 20:51:41 2019 Buprenorphine 43.40PRESUMPTIVE P OSITIVEPRESUMPTIVE POSITIVE ng/mL Jie Apr 14:51:41 2019 Cocaine Metabolites 7.00Negative Negative ng/mL Jie Apr 14 20:51:41 2019 Cotinine 763.00PRESUMPTIVE POSIT CHIARAPRESUMPTIVE POSITIVE ng/mL Jie Apr 14:51:41 2019 EDDP -34.00NegativeNegative ng/m L Jie Apr 14:51:41 2019 Ethyl Glucuronide -12.00Negative Negative ng/mL Jie Apr 14:51:41 2019 Ethyl Alcohol 1.00NegativeNegative* mg/dL Jie Apr 14:51:41 2019 Fentanyl 0.300NegativeNegative n g/mL Jie Apr 14:51:41 2019 Heroin (6-AM) 1.10NegativeNegative* ng/mL Jie Apr 14:51:41 2019 Methadone -11.00NegativeNegative ng/mL Jie Apr 14:51:41 2019 Opiates 0.00NegativeNegative ng/ mL SatApr 14 20:51:41 2019 Synthetic Opiates -16.00Negative Negative ng/mL SatApr 14 20:51:41 2019 Phencyclidine 11.70NegativeNegative ng/mL SatApr 14 20:51:41 2019 Cannabinoids -5.40NegativeNegative* ng/mL SatApr 14 20:51:41 2019 Tramadol 14.00NegativeNegative n g/mL SatApr 14 20:51:41 2019 Tricyclics 456.00NegativeNegative * ng/mL SatApr 14 20:51:41 2019 Ecstasy (MDMA) 6.00NegativeNegative ng/mL SatApr 14 20:51:41 2019 Buprenorphine 28.240Positive - C [...] 20:44:07 2019 Ethyl Alcohol -3.00NegativeNegative mg/dL SatMay 18:21:06 2019 Fentanyl 0.500NegativeNegative n g/mL SatMay 18:21:06 2019 Heroin (6-AM) 2.80NegativeNegative* ng/mL [facility] May 18 17:21:06 2019 Methadone -15.00NegativeNegative ng/mL SatMay 18 17:21:06 2019 Opiates -36.00NegativeNegative n g/mL [facility] May 18 17:21:06 2019 Synthetic Opiates -17.00Negative Negative ng/mL [facility] May 18 17:21:06 2019 Phencyclidine 23.00NegativeNegative ng/mL [facility] May 18 17:21:06 2019 Cannabinoids -16.40NegativeNegative ng/mL [facility] May 18 17:21:06 2019 Tramadol 37.00NegativeNegative n g/mL SatMay 18:21:06 2019 Tricyclics 594.00PRESUMPTIVE POS ITIVEPRESUMPTIVE POSITIVE ng/mL [facility] May 18 17:21:36 2019 Ecstasy (MDMA) 79.00NegativeNegativ e ng/mL [facility] May 18 17:21:07 2019 Buprenorphine 250Positive - Cons [...] May 19 16:33:47 2019 Nortriptyline 3.020NegativeNegative ng/mL SatMay 19 16:33:47 2019 Amitriptyline 2.100NegativeNegative ng/mL Jie May 19 16:33:47 2019 Clomipramine 37.370NegativeNegative ng/mL SatMay 19 16:33:47 2019 Desipramine 0.000NegativeNegative * ng/mL [...] 2019 Ecstasy (MDMA) 82.00NegativeNegativ e ng/mL SatMay 31 20:14:23 2019 Buprenorphine 250Positive - Cons istentPOSITIVE> ng/mL SatJun 02 08:20:16 2019 Norbuprenorphine 494.990Positive - ConsistentPOSITIVE ng/mL SatJun 02 08:20:16 2019 Naloxone 647.270Positive - Incon [...] 02 08:20:16 2019 Desipramine 0.000NegativeNegative * ng/mL Jie Jun 02 08:20:16 2019 Aripiprazole 0.000NegativeNegative* ng/mL SatJun [...] 2019 mCPP 50Positive - Consistent *POSITIVE> ng/mL Sat Jun 04 13:42:11 2019 Creatinine 153.7NORMALNORMAL mg/ dL SatJul 12 19:41:14 2020 pH 7.4NORMALNORMAL SatJul 12 19:41:14 2020 Oxidants -11.00NegativeNegative mcg/mL SatJul 12 19:41:14 2020 Validity Result VALIDVALIDVALID SatJul 12 19:45:21 2020 Amphetamines 299.00NegativeNegative ng/mL e Jul 12 19:41:14 2020 Barbiturates -2.00NegativeNegative* ng/mL e Jul 12 19:41:14 2020 Benzodiazepines 3.00NegativeNegativ e ng/mL SatJul 12 19:41:14 2020 Buprenorphine 111.10PRESUMPTIVE POSITIVEPRESUMPTIVE POSITIVE ng/mL e Jul 12 19:41:14 2020 Cocaine Metabolites -28.00Negati veNegative ng/mL SatJul 12 19:41:14 2020 Cotinine 649.00PRESUMPTIVE POSIT CHIARAPRESUMPTIVE POSITIVE ng/mL SatJul 12 19:41:14 2020 EDDP -97.00NegativeNegative ng/m L e Jul 12 19:41:14 2020 Ethyl Glucuronide 151.00Negative Negative ng/mL e Jul 12 19:41:14 2020 Ethyl Alcohol 0.00NegativeNegative* mg/dL e Jul 12 19:41:14 2020 Fentanyl 1.100PRESUMPTIVE POSITI VEPRESUMPTIVE POSITIVE ng/mL e Jul 12 19:41:14 2020 Heroin (6-AM) -0.10NegativeNegative ng/mL SatJul 12 19:41:15 EST 2020 Methadone -10.00NegativeNegative ng/mL SatJul 12 19:41:15 2020 Opiates -28.00NegativeNegative n g/mL SatJul 12 19:41:15 2020 Synthetic Opiates -24.00Negative Negative ng/mL SatJul 12 19:41:15 2020 Phencyclidine 1.30NegativeNegative* ng/mL SatJul 12 19:41:15 EST 2020 Cannabinoids -5.60NegativeNegative* ng/mL SatJul 12 19:41:15 2020 Tramadol 42.00NegativeNegative n g/mL SatJul 12 19:41:15 2020 Tricyclics 547.00PRESUMPTIVE POS ITIVEPRESUMPTIVE POSITIVE ng/mL SatJul 12 19:41:15 2020 Ecstasy (MDMA) 50.00NegativeNegativ e ng/mL SatJul 12 19:41:16 2020 Buprenorphine 216.190Positive - ConsistentPOSITIVE ng/mL [facility] Jul 13 11:17:06 2020 Norbuprenorphine 476.890Positive - ConsistentPOSITIVE ng/mL [facility] Jul 13 11:17:06 2020 Naloxone 629.130Positive - Incon sistentPOSITIVE ng/mL [facility] Jul 13 11:17:06 2020 Norfentanyl 0.610NegativeNegative * ng/mL SatJul 13 11:17:06 EST 2020 Fentanyl 0.040NegativeNegative n g/mL SatJul 13 11:17:06 2020 Carfentanil 0.040NegativeNegative * ng/mL SatJul 13 11:17:06 2020 Norcarfentanil 0.190NegativeNegativ e ng/mL Sat Feb 11:17:06 2020 Sufentanil 0.080NegativeNegative ng/mL Sat Feb 11:17:06 2020 Desmethyldoxepin 0.000Negative *Negative ng/mL Satb 11:17:06 2020 Doxepin 0.000NegativeNegative ng /mL Satb 11:17:06 2020 Imipramine 3.450NegativeNegative ng/mL Satb 11:17:06 2020 Nortriptyline 6.610NegativeNegative ng/mL Satb 11:17:06 2020 Amitriptyline 4.260NegativeNegative ng/mL SatJul 13 11:17:06 2020 Clomipramine 12.060NegativeNegative ng/mL Satb 11:17:06 2020 Desipramine 7.260NegativeNegative * ng/mL Sat Feb 11:17:06 2020 Aripiprazole 0.000NegativeNegative* ng/mL SatJul 13 10:13:02 2020 Chlorpromazine 0.160NegativeNegativ e ng/mL SatJul 13 10:13:02 EST 2020 Clozapine 0.020NegativeNegative ng/mL Sat Feb 10:13:02 2020 Fluphenazine 0.090NegativeNegative* ng/mL Sat Feb 10:13:03 EST 2020 Haloperidol 0.040NegativeNegative * ng/mL Sat Feb 10:13:03 2020 Lurasidone 0.280NegativeNegative ng/mL Sat Feb 10:13:03 EST 2020 Olanzapine 0.140NegativeNegative ng/mL [facility] Jul 13 10:13:03 2020 Promethazine 0.020NegativeNegative* ng/mL [facility] Jul 13 10:13:03 2020 Quetiapine 50Positive - Consiste ntPOSITIVE> ng/mL [facility] Jul 13 10:13:03 2020 Risperidone 0.000NegativeNegative * ng/mL [facility] Jul 13 10:13:03 2020 Trifluoperazine 0.230Negative Negative ng/mL [facility] Jul 13 10:13:03 2020 Ziprasidone 0.000NegativeNegative * ng/mL [facility] Jul 13 10:13:03 2020 Bupropion 50Positive - Consisten tPOSITIVE> ng/mL [facility] Jul 13 10:13:03 2020 Hydroxybupropion 50Positive - Co nsistentPOSITIVE> ng/mL [facility] Jul 13 10:13:03 2020 Trazodone 50Positive - Consisten tPOSITIVE> ng/mL [facility] Jul 13 10:13:03 2020 mCPP 50Positive - Consistent *POSITIVE> ng/mL [facility] Jul 13 10:13:03 2020 Creatinine 221.8NORMALNORMAL mg/ dL Jie Sep 15 17:16:19 EDT 2020 pH 6.1NORMALNORMAL SatSep 15 17:16:20 EDT 2020 Oxidants -5.00NegativeNegative m cg/mL Jie Sep 15 17:16:20 EDT 2020 Validity Result VALIDVALIDVALID SatSep 15 17:30:28 EDT 2020 Amphetamines 641.00PRESUMPTIVE P OSITIVEPRESUMPTIVE POSITIVE ng/mL Jie Sep 15 17:16:19 EDT 2020 Barbiturates -14.00NegativeNegative ng/mL Jie Sep 15 17:16:20 EDT 2020 Benzodiazepines -10.00Negative *Negative ng/mL Jie Sep 15 17:16:20 EDT 2020 Buprenorphine 104.20PRESUMPTIVE POSITIVEPRESUMPTIVE POSITIVE ng/mL Jie Sep 15 17:16:20 EDT 2020 Cocaine Metabolites -37.00Negati veNegative ng/mL Jie Sep 15 17:16:20 EDT 2020 EDDP -145.00NegativeNegative ng/ mL Jie Sep 15 [...] 16 16:03:52 EDT 2020 Aripiprazole 0.160NegativeNegative* ng/mL Sat Sep 17 07:57:44 EDT 2020 Chlorpromazine 0.000NegativeNegativ e ng/mL Sat Sep 17 07:57:44 EDT 2020 Clozapine 0.010NegativeNegative ng/mL Sat Sep 17 07:57:44 EDT 2020 Fluphenazine 0.100NegativeNegative* ng/mL Sat Sep 17 07:57:44 EDT 2020 Haloperidol 0.010NegativeNegative * ng/mL Sat Sep 17 07:57:44 EDT 2020 Lurasidone 0.870NegativeNegative ng/mL Sat Sep 17 07:57:44 ED2020 Olanzapine 0.120NegativeNegative ng/mL Mon Sep 19 07:41:23 EDT 2020 Promethazine 0.050NegativeNegative* ng/mL Sat Sep 17 07:57:44 EDT 2020 Quetiapine 50Positive - Consiste ntPOSITIVE> ng/mL Sat Sep 17 07:57:44 ED2020 Risperidone 0.000NegativeNegative * ng/mL Sat Sep 17 07:57:44 ED2020 Trifluoperazine 0.240Negative Negative ng/mL Sat Sep 17 07:57:44 ED2020 Ziprasidone 1.970NegativeNegative * ng/mL Sat Sep 17 07:57:44 ED2020 Bupropion 50Positive - Consisten tPOSITIVE> ng/mL SatSep 17 07:57:44 ED2020 Hydroxybupropion 50Positive - Co nsistentPOSITIVE> ng/mL Sat Sep 17 07:57:44 ED2020 Trazodone 50Positive - Consisten tPOSITIVE> ng/mL Sat Sep 17 07:57:44 ED2020 mCPP 50Positive - Consistent *POSITIVE> ng/mL Sat Sep 17 07:57:44 ED2020 COLOR DARK YELLOW SatDec 29 12 :55:00 ED2020 APPEARANCE TURBID SatDec 29 12:55:00 ED2020 SPECIFIC GR 1.030 SatDec 09 2 12:55:00 ED2020 PH 6.0 SatDec 29 12:55:0 0 ED2020 GLUCOSE NEGATIVE SatDec 29 12 :55:00 ED2020 BILIRUBIN NEGATIVE SatDec 29 12:55:00 ED2020 KETONES NEGATIVE Sat 22 12 :55:00 EDT 2020 OCCULT BLOO 3+ Jie Dec 09 2 12:55:00 EDT 2020 PROTEIN 3+ Jie Dec 29 12 :55:00 EDT 2020 NITRITE POSITIVE Jie Dec 29 12 :55:00 EDT 2020 LEUKOCYTE E NEGATIVE Jie Dec 2 2 12:55:00 EDT 2020 WBC 6-10 /HPF Jie Dec 29 12:55: 00 EDT 2020 RBC 0-2 /HPF Jie Dec 29 12:55: 00 EDT 2020 SQUAMOUS EP 10-20 /HPF Jie Dec 2 2 12:55:00 EDT 2020 TRANSITIONA DNR /HPF Jie Dec 09 2 12:55:00 EDT 2020 RENAL EPITH DNR /HPF Jie Dec 2 2 12:55:00 EDT 2020 BACTERIA MODERATE /HPF [...] Dec 29 12:55 :00 EDT 2020 E [id number] null GLUCOSE 92 mg/dL SatJan 04 11 :34:00 EDT 2020 UREA NITROG 27 mg/dL SatDec 09 8 11:34:00 EDT 2020 CREATININE 1.18 mg/dL SatJan [...] cells/uL SatJan 04 11:34:00 EDT 2020 ABSOLUTE MT DNR cells/uL SatJan 04 11:34:00 EDT 2020 [...] W/ NON-REACTIVE Sat 11:34:00 EDT 2020 E [id number] null Medications Medication Directions Start Date End Date Suboxone 0.[address] one (1) bran m under the tongue three times a day SatFeb 06 00:00:00 2020Feb 26 00:00 :00 2020 Anoro Ellipta 0.0 POW Inhale one ( 1) puff into the lungs twice a day SatJan 26 00:00:00 2020Feb 24 00:00 :00 2020 Singulair 10 MG TAB Take one (1) ta blet by mouth daily SatJan 26 00:00:00 2020Feb 24 00:00 :00 2020 rOPINIRole HCl 0.25 MG TAB Take one (1) tablet by mouth three times a day SatJan 26 00:00:00 2020Feb 24 00:00 :00 [address] one (1) bran m under the tongue three times a day SatJan 27 00:00:00 2020Feb 05 00:00 :00 2020 LAMICTAL (LAMOTRIGINE) 25 MG TABLET 2 Tablet HS: At Bedtime ORAL SatJan 24 06:00:00 2020 18 12:55 :00 2020 Minipress 1 MG CAP Take one (1) cap robert by mouth daily SatJan 24 00:00:00 2020 Sep 15 00:00 :00 2020 Wellbutrin XL 150 MG T24 Take one ( 1) tablet by mouth daily SatJan 24 00:00:00 2020 15 00:00 :00 2020 traZODone hydrochloride 150 MG TAB Take one (1) tablet by mouth at bedtime SatJan 24 00:00:00 2020 Sep 15 00:00:00 2020 Topamax 25 MG CAP Take one (1) caps ule by mouth twice a day SatJan 24 00:00:00 2020 15 00:00 :00 2020 Vistaril 25 MG CAP Take one (1) cap robert by mouth three times a day, as needed for anxiety SatJan 24 00:00:00 2020 Wed Sep 15 00:00:00 EDT 2020 SEROquel 25 MG TAB Take one (1) tab let by mouth three times a day SatJan 24 00:00:00 EDT 2020 Sep 15 00:00 :00 EDT 2020 Minipress [...] by mouth at bedtime SatJan 24 00:00:00 ED2020Jan 24 00:00:00 ED2020 Topamax 25 MG CAP Take one (1) caps ule by mouth twice a day SatJan 24 00:00:00 ED2020Jan 24 00:00 :00 EDT 2020 Vistaril 25 MG CAP Take one (1) cap robert by mouth three times a day, as needed for anxiety SatJan 24 00:00:00 EDT 2020Jan 24 00:00:00 EDT 2020 SEROquel 25 MG TAB Take one (1) tab let by mouth three times a day SatJan 24 00:00:00 ED2020Jan 24 00:00 :00 ED2020 Minipress 1 MG CAP Take one (1) cap robert by mouth daily SatJan 24 00:00:00 ED2020Jan 24 00:00 :00 EDT 2020 SEROquel 100 MG TAB Take one (1) ta blet by mouth at bedtime SatJan 24 00:00:00 EDT 2020 Sep 15 00:00 :00 EDT 2020 Wellbutrin XL [...] by mouth every morning SatJan 24 00:00:00 ED2020Feb 22 00:00 :00 EDT 2020 NICOTINE POLACRILEX [...] Times a Day ORAL SatJan 23 12:00:00 ED2020Jan 25 12:55 :00 EDT 2020 MAGNESIUM CITRATE 1.75 GM/30 ML SOLUTION 296 Milliliter Daily As Needed ORAL SatJan 22 19:06:00 ED2020Jan 25 12:55:00 EDT 2020 MAGNESIUM CITRATE 1.75 GM/30 ML SOLUTION 296 Milliliter Daily As Needed ORAL Sat 14 08:00:00 EDT 2020 Sun Jan 22 07:59:00 EDT 2020 SENNA 8.6 MG TABLET 1 Tablet BIDPRN : Twice A Day As Needed ORAL SatJan 20 06:00:00 EDT 2020Jan 25 12:55 :00 EDT 2020 SUBOXONE (BUPRENORPHINE-NALOXONE) 4MG-1MG F ILM 1 Film TID: Three Times a Day SUBLINGUAL SatJan 20 06:00:00 ED2020Jan 25 12:55:00 EDT 2020 MAGNESIUM CITRATE 1.75 GM/30 ML SOLUTION 296 Milliliter Daily As Needed ORAL SatJan 20 08:00:00 EDT 2020Jan 21 07:59:00 EDT 2020 SUBOXONE (BUPRENORPHINE-NALOXONE) 4MG-1MG F ILM 1 Film TID: Three Times a Day SUBLINGUAL SatJan 19 00:00:00 EDT 2020Jan 20 09:07:00 EDT 2020 ROPINIROLE HCL 0.25 MG TABLET 1 Tab let TID: Three Times a Day ORAL SatJan 18 06:00:00 EDT 2020Jan 25 12:55 :00 EDT 2020 SUBOXONE (BUPRENORPHINE-NALOXONE) [...] 1 Capsule HS: At Bedtime ORAL SatJan 09:00:00 EDT 2020Jan 23 10:38 :00 EDT 2020 [...] ACETATE) 0.15 MG/1 ACT UATION SPRAY 1 [place] BIDPRN: Twice A Day As Needed NASAL (To be given immediately when she has nosebleeds) SatDec 30 06:00:00 EDT 2020Jan 25 12:55 :00 EDT 2020 ROPINIROLE HCL 0.25 MG TABLET 1 Tab let TID: Three Times a Day ORAL SatDec 30 06:00:00 EDT 2020Jan 18 13:29 :00 EDT 2020 CLONIDINE HCL 0.1 MG TABLET 1 Table t TID: Three Times a Day ORAL (MDD 1mg. See clonidine 0.2mg) SatDec 30 06:00:00 EDT 2020Jan 23 10:43:00 EDT 2020 HYDROXYZINE HCL 25 MG TABLET 1 Tabl et TID: Three Times a Day ORAL SatDec 30 06:00:00 EDT 2020Jan 23 10:43 :00 EDT 2020 QUETIAPINE FUMARATE 25 MG TABLET 1 Tablet TID: Three Times a Day ORAL SatDec 30 06:00:00 EDT 2020Jan 25 12:55 :00 EDT 2020 SEROQUEL (QUETIAPINE FUMARATE) 100 MG TABLET 1 Tablet HS: At Bedtime ORAL (Takes with 25mg of Seroquel) SatDec 30 06:00:00 EDT 2020Jan 25 12:55:00 EDT 2020 SINGULAIR (MONTELUKAST SODIUM) [...] EDT 2020Jan 24 09:16 :00 EDT 2020 SENNA 8.6 MG TABLET 1 Tablet BIDPRN : Twice A Day As Needed ORAL SatDec 28 16:13:00 EDT 2020Jan 20 15:26 :00 EDT 2020 LAMICTAL (LAMOTRIGINE) 25 MG [...] EDT 2020Jan 09 09:27 :00 EDT 2020 PRAZOSIN HCL 1 MG CAPSULE 1 Capsule HS: At Bedtime ORAL SatDec 28 16:07:00 EDT 2020Jan 23 10:37 :00 EDT 2020 ACETAMINOPHEN 500 MG CAPSULE [...] 2020 FIBER-LAX 625 MG TABLET 2 tablet MT N: As Needed ORAL (MDD 4 Tabs) [...] EDT 2020Jan 25 12:55 :00 EDT [address] one (1) bran m under the tongue three times a day SatDec 09:00:00 2020Jan 07:00 :00 2020 cloNIDine HCl 0.1 MG TAB Take one ( 1) tablet by mouth three times a day, as needed SatDec 09:00:00 2020Jan 24 00:00:00 2020 Minipress 1 MG CAP Take one (1) cap robert by mouth daily SatDec 09 00:00:00 2020Jan 24:00 :00 2020 SEROquel 100 MG TAB Take one (1) ta blet by mouth at bedtime SatDec 09:00:00 2020Jan 07:00 :00 2020 Wellbutrin XL 150 MG T24 Take one ( 1) tablet by mouth daily SatDec 09:00:00 2020Jan 24:00 :00 2020 traZODone hydrochloride 150 MG TAB Take one (1) tablet by mouth at bedtime SatDec 09:00:00 2020Jan 24:00:00 2020 Topamax 25 MG CAP Take one (1) caps ule by mouth twice a day SatDec 09:00:00 2020Jan 24:00 :00 2020 Vistaril 25 MG CAP Take one (1) cap robert by mouth three times a day, as needed for anxiety SatDec 09 00:00:2020Jan 24:00:00 2020 SEROquel 25 MG TAB Take one (1) tab let by mouth three times a day SatDec 09 00:00:00 2020Jan 24:00 :00 2020 Effexor XR 37.5 MG CER Take one (1) capsule by mouth every morning SatDec 09 00:00:00 2020Jan 07:00 :00 2020 Minipress 5 MG CAP Take one (1) cap robert by mouth at bedtime SatDec 09 00:00:00 2020Jan 24:00 :00 2020 cloNIDine HCl 0.1 MG TAB Take one ( 1) tablet by mouth three times a day, as needed SatDec 09 00:00:00 2020Jan 24 00:00:00 2020 Minipress 5 MG CAP Take one (1) cap robert by mouth at bedtime SatDec 09 00:00:00 2020Jan 24 00:00 :00 2020 SEROquel 100 MG TAB Take one (1) ta blet by mouth at bedtime SatNov 10 00:00:00 2020Dec 09 00:00 :00 2020 Effexor XR 37.5 MG CER Take one (1) capsule by mouth every morning SatNov 10 00:00:00 2020Dec 09 00:00 :00 [...] bedtime SatOctober 10 00:00:00 EDT 2020Dec 08 00:00:00 EDT 2020 Topamax 25 MG CAP Take one (1) caps ule by mouth twice a day SatOctober 10 00:00:00 EDT 2020Dec 08 00:00 :00 EDT 2020 Vistaril 25 MG CAP Take one (1) cap robert by mouth three times a day, as needed for anxiety SatOctober 10 00:00:00 EDT 2020Dec 08 00:00:00 EDT 2020 SEROquel 25 MG TAB Take one (1) tab let by mouth three times a day SatOctober 10 00:00:00 EDT 2020Dec 08 00:00 :00 EDT 2020 Minipress [...] EST 2020Oct 07 00:00 :00 EDT 2020 Wellbutrin XL 150 [...] ule by mouth twice a day SatAug 09 00:00:00 EST 2020Oct [...] EST 2020Sep 09 00:00 :00 EDT 2020 Minipress 5 MG [...] times a day SatJul 11 00:00:00 EST 2020Aug 09 00:00 :00 EST 2020 Topamax 25 MG CAP Take one (1) caps ule by mouth twice a day SatJun 27 00:00:00 EST 2020Aug 09 00:00 :00 EST 2020 Suboxone [...] three times a day SatMay 30 00:00:00 2019May 30 00:00:00 EST 2019 Buprenorphine-Naloxone 0.0 BRAN Aaron ce one (1) film under the tongue three times a day SatMay 30 00:00:00 EST 2019May 30 00:00:00 2019 traZODone hydrochloride 100 MG TAB Take one (1) tablet by mouth at bedtime SatMay 30 00:00:00 2019Jun 13 00:00:00 [address] one (1) bran m under the tongue three times a day SatMay 30 00:00:00 2019Jun 13 00:00 :00 2020 cloNIDine HCl 0.1 MG TAB Take one ( 1) tablet by mouth three times a day, as needed SatMay 30 00:00:00 2019Jul 28 00:00:00 2020 Minipress 1 MG CAP Take one (1) cap robert by mouth daily SatMay 30 00:00:00 2019Jul 28 00:00 :00 2020 traZODone hydrochloride 100 MG TAB Take one (1) tablet by mouth at bedtime SatMay 30 00:00:00 2019Jun 13 00:00:00 EST 2020 Wellbutrin XL 150 MG T24 Take one ( 1) tablet by mouth daily SatMay 30 00:00:00 2019Jul 28 00:00 :00 2020 Vistaril 25 MG CAP Take one (1) cap robert by mouth three times a day, as needed for anxiety SatMay 30 00:00:00 2019Jul 28 00:00:00 2020 SEROquel 25 MG TAB Take one (1) tab let by mouth three times a day SatMay 30 00:00:00 2019Jul 28 00:00 :00 EST 2020 lamoTRIgine 25 MG TAB Take two (2) tablets by mouth at bedtime SatMay 30 00:00:00 2019Jul 28 00:00 :00 2020 Buprenorphine-Naloxone 0.0 BRAN Aaron ce one (1) film under the tongue three times a day SatMay 17 00:00:00 2019May 30:00:2019 cloNIDine HCl 0.1 MG TAB Take one ( 1) tablet by mouth three times a day, as needed SatMay 17:002019May 30:00:00 EST 2019 Minipress 1 MG CAP Take one (1) cap robert by mouth daily SatMay 17 00:00:00 2019May 30:00 : EST 2019 traZODone hydrochloride 100 MG TAB Take one (1) tablet by mouth at bedtime SatMay 17 00:00:00 2019May 30:00:00 EST 2019 Wellbutrin XL 150 MG T24 Take one ( 1) tablet by mouth daily SatMay 17:00:00 2019May 30:00 :00 EST 2019 Vistaril 25 MG CAP Take one (1) cap robert by mouth three times a day, as needed for anxiety SatMay 17:00:2019May 30:00:00 2019 SEROquel 25 MG TAB Take one (1) tab let by mouth three times a day SatMay 17:00:00 2019May 30:00 :00 2019 lamoTRIgine 25 MG TAB Take two (2) tablets by mouth at bedtime SatMay 17:00:00 2019May 30:00 :00 EST 2019 Minipress 5 MG CAP Take one (1) cap robert by mouth at bedtime SatMay 17 00:00:00 2019Jul 15 00:00 :00 2020 Buprenorphine-Naloxone 0.0 BRAN Aaron ce one (1) film under the tongue three times a day SatMay 03 00:00:00 2019May 17 00:00:00 2019 Buprenorphine-Naloxone 0.0 BRAN Aaron ce one (1) film under the tongue three times a day SatApr 25 00:00:00 2019May 02 00:00:00 2019 Buprenorphine-Naloxone 0.0 BRAN Aaron ce one (1) film under the tongue three times a day SatApr 19 00:00:00 2019Apr 25 00:00:00 2019 DDAVP 0.0 SPR [place] two (2) sprays in nostril(s) daily SatApr 12 00:00:00 2019Sep 09 00:00 :00 2020 cloNIDine HCl 0.1 MG TAB Take one ( 1) tablet by mouth three times a day, as needed SatApr 12:00:2019May 11:00:00 2019 rOPINIRole HCl 0.25 MG TAB Take one (1) tablet by mouth three times a day SatApr 12 00:00:00 2019Sep 09:00 :00 2020 Esomeprazole Magnesium 20 MG ECC Ta ke one (1) capsule by mouth daily SatApr 12:00:00 2019Sep 09:00 :00 2020 Ibuprofen 600 MG TAB Take one (1) t ablet by mouth twice a day, as needed for pain SatApr 12::00 2019Sep 09:00:00 2020 Anoro Ellipta 0.0 POW Inhale one ( 1) spray into the lungs daily SatApr 12 00:00:00 2019Sep 09 00:00 :00 2020 traZODone hydrochloride 100 MG TAB Take one (1) tablet by mouth at bedtime SatApr 12:00:00 2019May 11:00:00 2019 Vistaril 25 MG CAP Take one (1) cap robert by mouth three times a day, as needed for anxiety SatApr 12:00:2019May 11:00:00 2019 SEROquel 25 MG TAB Take one (1) tab let by mouth three times a day SatApr 1200:2019May 11 00:00 :00 2019 lamoTRIgine 25 MG TAB Take two (2) tablets by mouth at bedtime SatApr 12:00:00 2019May 11:00 :00 2019 Albuterol Sulfate HFA 0.0 ANGELICA Inha le two (2) puffs into the lungs twice a day, as needed SatApr 12:00:00 2019Sep 09 00:00:00 2020 Minipress 1 MG CAP Take one (1) cap robert by mouth daily SatApr 12 00:00:00 2019May 11 00:00 :00 2019 Singulair 10 MG TAB Take one (1) ta blet by mouth daily SatApr 12 00:00:00 2019Sep 09 00:00 :00 ED2020 Wellbutrin XL 150 MG T24 Take one ( 1) tablet by mouth daily SatApr 12 00:00:00 2019May 11 00:00 :00 2019 Topamax 25 MG CAP Take one (1) caps ule by mouth twice a day SatApr 12 00:00:00 2019Jun 10 00:00 :00 2020 Narcan 0.0 SPR [place] one (1) spray in nostril(s) daily SatApr 12 00:00:00 2019Sep 09 00:00 :00 2020 Minipress 5 MG CAP Take one (1) cap robert by mouth at bedtime SatApr 12 00:00:00 2019May 17 00:00 :00 [address] one (1) bran m under the tongue daily SatApr 12 00:00:00 2019Sep 09 00:00 :00 ED[address] one (1) bran m under the tongue daily SatApr 12 00:00:00 2019Sep 09 00:00 :00 ED[address] one (1) bran m under the tongue daily SatApr 07 00:00:00 2019Apr 12 00:00 :00 2019 ZyPREXA 10 MG TAB Take one (1) tabl et by mouth twice a day SatApr 07 00:00:00 ED2019Sep 09 00:00 :00 ED2020 ZyPREXA 10 MG [...] SatFeb 02 00:00:00 2019Feb 08 00:00 :00 [address] [...] 03 00:00 :00 2019 Narcan 0.0 SPR [place] one (1) spray in nostril(s) daily SatNovember 03 00:00:00 2019Dec 02 00:00 :00 2019 ZyPREXA 10 MG TAB Take one (1) tabl et by mouth at bedtime SatNovember 03 00:00:00 2019Dec 02 00:00 :2019 SEROquel 100 MG TAB Take one (1) [...] at bedtime SatNovember 03 00:00:00 2019Dec 02 00:00:00 [address] [...] SatNovember 03 00:00:00 2019Sep 09 00:00:00 2020 DDAVP 0.0 SPR [place] two (2) sprays in nostril(s) daily SatApr 12 00:00:00 2019Sep 09 00:00 :00 2020 rOPINIRole HCl 0.25 MG TAB [...] pain SatApr 12 00:00:00 2019Sep 09 00:00:00 2020 Anoro Ellipta 0.0 POW Inhale one ( 1) spray into the lungs daily SatApr 12 00:00:00 2019Sep 09 00:00 :00 2020 Albuterol Sulfate HFA 0.0 ANGELICA Inha le two (2) puffs into the lungs twice a day, as needed SatApr 12 00:00:00 2019Sep 09 00:00:00 2020 Singulair 10 MG TAB Take one (1) ta blet by mouth daily SatApr 12 00:00:00 2019Sep 09 00:00 :00 2020 Narcan 0.0 SPR [place] one (1) spray in nostril(s) daily SatApr 12 00:00:00 2019Sep 09 00:00 :00 [address] one (1) bran m under the tongue twice a day SatOctober 13 00:00:00 2019Nov 09 00:00 :00 2019 Buprenorphine-Naloxone 0.0 BRAN [...] blet by mouth daily SatOctober 13 00:00:00 2019October 22 00:00 :00 2019 ZyPREXA 10 MG [...] by mouth at bedtime SatAug 18 00:00:00 2019Sep 15 00:00 :00 [address] one (1) bran m under the tongue twice a day SatAug 18 00:00:00 2019Aug 25 00:00 :00 2019 Singulair 10 MG TAB Take one (1) ta blet by mouth daily SatAug 13 00:00:00 2019Sep 11 00:00 :00 2019 Prazosin HCl 2 MG CAP Take [...] by mouth at bedtime SatAug 05 00:00:00 EST 2019Aug 13 00:00 :00 EST 2020 Wellbutrin XL 150 MG T24 Take one ( 1) tablet by mouth daily SatAug 05 00:00:00 EST 2019u Mar 00:00 :00 EDT 2020 Topamax 25 MG CAP Take one (1) caps ule by mouth twice a day SatAug 05 00:00:00 EST 2019Sep 15 00:00 :00 EDT [address] (1) bran m under the tongue twice a day SatAug 05 00:00:00 EST 2019e Aug 17 00:00 :00 EDT 2020 METRONIDAZOLE 500 MG TABLET Fri Feb 08:00:00 EST 2020 Mon Mar 02 07:59:00 [...] 07:59:00 EST 2020 OLANZAPINE 10 MG TABLET Tue Feb 11 08:00:00 EST 2020 Tue Mar 10 08:59:00 EDT 2020 TOPAMAX (TOPIRAMATE) 25 MG TABLET Tue Feb 11 08:00:00 EST 2020 Tue Mar 10 08:59:00 EDT 2020 WELLBUTRIN XL (BUPROPION HYDRO CHLORIDE) 150 MG TABLET, EXTENDED RELEASE, 24 HR Tue Feb 11 08:00:00 EST 2020 Tue Mar 10 08:59:00 EDT 2020 QUETIAPINE FUMARATE 50 MG TABLET, EXTENDED RELEASE Tue Feb 11 15:37:00 EST 2020 Tue Mar 10 16:36:00 EDT 2020 QUETIAPINE FUMARATE 50 MG TABLET, EXTENDED RELEASE Tue Feb 11 21:00:00 EST 2020 Tue Mar 10 21:59:00 EDT 2020 LAMOTRIGINE 25 MG TABLET Wed Feb 12 08:00:00 EST 2020 Wed Mar 11 08:59:00 EDT 2020 PRAZOSIN HCL 2 MG CAPSULE Tue Feb 11 21:00:00 EST 2020 Tue Mar 10 21:59:00 EDT 2020 SUBOXONE (BUPRENORPHINE-NALOXONE) 8MG-2MG FILM Mon Feb 10 23:24:00 EST 2020 Jie Feb 20 23:23:00 EST 2020 TRAZODONE HYDROCHLORIDE 50 MG TABLET Mon Feb 10 23:24:00 EST 2020 Tue Mar 10 00:23:00 EDT 2020 NARCAN (NALOXONE HCL) 4 MG/0.1 ML SPRAY Satb 10 :24:00 2019 24 23::00 EST 2019 VENTOLIN HFA (ALBUTEROL SULFAT E) 0.09 MG/1 ACTUATION SUSPENSION Sat Feb 04 01:24:2019Aug 17 00:23:00 EDT 2019 NARCAN (NALOXONE HCL) 4 MG/0.1 ML SPRAY Satb 04 01::2019Aug 03::00 EST 2019 PEPCID (FAMOTIDINE) 40 MG TABLET SatJul 20::2019Aug 17 00:23:00 EDT 2019 ORAJEL MOUTH SORE MEDICINE (BE NZALKONIUM CHLORIDE-BENZOCAINE/ZINC CHLORIDE) 0.02%-20%-0.1% GEL/JELLY Satb 1 0 ::2019Aug 17 00:23:00 EDT 2019 MYLANTA (ALUMINUM HYDROXIDE-MA GNESIUM HYDROXIDE-SIMETHICONE) 200MG/5 ML-200MG/5 ML-20MG/5 ML SUSPENSION Satb 04 01:24:2019Aug 17 00:23:00 EDT 2019 MULTIVITAMIN TABLET SatJul 20::2019Aug 17:23:00 EDT 2019 MELATONIN 5 MG CAPSULE SatJul 20:24:2019Aug 17:23:00 EDT 2019 ICY HOT (MENTHOL-METHYL SALICYLATE) 10%-30% CREAM SatJul 20::2019Aug 17 00:23:00 EDT 2019 FIBER-LAX 625 MG TABLET SatJul 20:24:2019Aug 17 00:23:00 EDT 2019 CLARITIN (LORATADINE) 10 MG TABLET SatJul 20::00 2019Aug 17 00:23:00 EDT 2019 BENADRYL ALLERGY (DIPHENHYDRAM INE HYDROCHLORIDE) 25 MG TABLET Satb 04 01:24:00 2019Aug 17 00:23:00 EDT 2019 TUMS (CALCIUM CARBONATE) 500 MG TABLET, CHEWABLE Satb 04 01:24:00 2019Aug 17 00:23:00 EDT 2019 GAS-X (SIMETHICONE) 80 MG TABLET, CHEWABLE Mon Feb 10 :24:00 2019 10 00:23:00 EDT 2019 ACETAMINOPHEN (TYLENOL) 500 MG TABLET Mon Feb 10 ::2019 10 00:23:00 EDT 2019 NICOTINE POLACRILEX 4 MG LOZENGE/BERTHA Mon Feb 10 ::00 EST 2019 Mon Feb 24 23::00 EST 2019 MONTELUKAST SODIUM 10 MG TABLET Mon Feb 10 ::2019 10 00:23:00 EDT 2019 ADVAIR DISKUS 250/50 (FLUTICAS ONE PROPIONATE-SALMETEROL XINAFOATE) 0.25MG/1 ACTUATION-0.05MG/1 ACTUATION DISK Mo n Feb 10 ::2019 10 00:23:00 EDT 2019 HYDROXYZINE HCL 25 MG TABLET Mon Feb 10 ::00 EST 2019 Sat Feb 15 ::00 EST 2020 ZOFRAN (ONDANSETRON) 4 MG TABLET, DISINTEGRATING Sat Feb 10 ::00 EST 2019 Sat Feb 15 :23:00 EST 2020 CATAPRES (CLONIDINE HYDROCHLORIDE) 0.1 MG TABLET Mon Feb 10 ::00 EST 2019 Sat Feb 15 ::00 EST 2020 XOPENEX (LEVALBUTEROL HYDROCHLORIDE) 1.25 MG /3 ML SOLUTION Mon Feb 10 :24:00 2019 10 00:23 :00 EDT 2019 TRIPLE ANTIBIOTIC OINTMENT 40 0UNITS/1GM-3.5MG/1GM-5000UNITS/1GM OINTMENT Sat Feb 10 :24:00 EST 2019 e Aug 17 00:23:00 EDT 2019 PEPTO-BISMOL (BISMUTH SUBSALICYLATE) 262 MG/ 15 ML SUSPENSION Mon Feb 10 :24:00 2019 10 00:23 :00 EDT 2019 MILK OF MAGNESIA 400 MG/5 ML SOLUTION Mon Feb 10 :24:00 2019 10 00:23:00 EDT 2019 GUAIFENESIN 600 MG TABLET, EXTENDED RELEASE Mon Feb 10 :24:00 2019Aug 17 00:23:00 EDT 2019 COLACE (DOCUSATE SODIUM) 100 MG CAPSULE, LIQ UID FILLED Sat 10 23:24:00 2019Aug 17 00:23 :00 EDT 2019 BENADRYL ALLERGY (DIPHENHYDRAM INE HYDROCHLORIDE) 25 MG TABLET SatJul 20 23:24:00 2019Aug 17 00:23:00 EDT 2019 EUCERIN DAILY PROTECTION (LOTI ON, MULTI INGREDIENT) 2%-7.5%-4.5%-2.4%-4.8% LOTION SatJul 20 23:2 4:00 2019Aug 17 00:23:00 EDT 2019 EUCERIN DAILY PROTECTION (LOTI ON, MULTI INGREDIENT) 2%-7.5%-4.5%-2.4%-4.8% LOTION Sun Jul 09 10:0 5:00 2019 08 11:04:00 EDT 2019 TRAZODONE HYDROCHLORIDE 50 MG TABLET Sun Jul 19 10:03:00 2019Aug 15 11:02:00 EDT 2019 ACETAMINOPHEN (TYLENOL) 500 MG TABLET Sun Jul 19 04:55:00 EST 2019Aug 15 05:54:00 EDT 2019 GAS-X (SIMETHICONE) 80 MG TABLET, CHEWABLE Sat Feb 08 15:55:00 2019Aug 14 15:54:00 EST 2019 TUMS (CALCIUM CARBONATE) 500 MG TABLET, CHEWABLE Sat Feb 08 15:55:00 EST 2019Aug 14 15:54:00 EST 2019 BENADRYL ALLERGY (DIPHENHYDRAM INE HYDROCHLORIDE) 25 MG TABLET Sat Feb 08 15:55:00 EST 2019 Aug 14 15:54:00 EST 2019 BENADRYL ALLERGY (DIPHENHYDRAM INE HYDROCHLORIDE) 25 MG TABLET Sat Feb 08 15:55:00 EST 2019 Aug 14 15:54:00 EST 2019 CLARITIN (LORATADINE) 10 MG TABLET Sat Feb 08 15:55:00 EST 2019Aug 14 15:54:00 EST 2019 COLACE (DOCUSATE SODIUM) 100 MG CAPSULE, LIQ UID FILLED Sat Feb 08 15:55:00 EST 2019Aug 14 15:54 :00 EST 2019 FIBER-LAX 625 MG TABLET Sat Feb 08 15:55:00 EST 2019Aug 14 15:54:00 EST 2020 GUAIFENESIN 600 MG TABLET, EXTENDED RELEASE Sat Feb 08 15:55:00 EST 2020 SatAug 14 15:54:00 EST 2020 ICY HOT (MENTHOL-METHYL SALICYLATE) 10%-30% CREAM Sat Feb 08 15:55:00 EST 2020 SatAug 14 15:54:00 EST 2020 MELATONIN 5 MG CAPSULE Sat Feb 08 15:55:00 EST 2020 SatAug 14 15:54:00 EST 2020 MILK OF MAGNESIA 400 MG/5 ML SOLUTION Sat Feb 08 15:55:00 EST 2019Aug 14 15:54:00 EST 2020 MULTIVITAMIN TABLET Sat Feb 08 15:55:00 EST 2020 SatAug 14 15:54:00 EST 2020 MYLANTA (ALUMINUM HYDROXIDE-MA GNESIUM HYDROXIDE-SIMETHICONE) 200MG/5 ML-200MG/5 ML-20MG/5 ML SUSPENSION Sat Feb 08 15:55:00 EST 2020 SatAug 14 15:54:00 EST 2020 ORAJEL MOUTH SORE MEDICINE (BE NZALKONIUM CHLORIDE-BENZOCAINE/ZINC CHLORIDE) 0.02%-20%-0.1% GEL/JELLY Sat Feb 0 8 15:55:00 EST 2020 SatAug 14 15:54:00 EST 2020 PEPTO-BISMOL (BISMUTH SUBSALICYLATE) 262 MG/ 15 ML SUSPENSION Sat Feb 08 15:55:00 EST 2020 SatAug 14 15:54 :00 EST 2020 PEPCID (FAMOTIDINE) 40 MG TABLET Sat Feb 08 15:55:00 EST 2020 SatAug 14 15:54:00 EST 2020 TRIPLE ANTIBIOTIC OINTMENT 40 0UNITS/1GM-3.5MG/1GM-5000UNITS/1GM OINTMENT Sat Feb 08 15:55:00 EST 2020 Sa t Aug 14 15:54:00 EST 2020 XOPENEX (LEVALBUTEROL HYDROCHLORIDE) 1.25 MG /3 ML SOLUTION Sat Feb 08 15:55:00 EST 2020 SatAug 14 15:54 :00 EST 2020 NARCAN (NALOXONE HCL) 4 MG/0.1 ML SPRAY Sat Feb 08 15:55:00 EST 2020 Sat Feb 22 15:54:00 EST 2020 CATAPRES (CLONIDINE HYDROCHLORIDE) 0.1 MG TABLET Sat Feb 08 15:55:00 EST 2020 Jie Feb 13 15:54:00 EST 2020 ZOFRAN (ONDANSETRON) 4 MG TABLET, DISINTEGRATING Sat Feb 08 15:55:00 EST 2020 Jie Feb 13 15:54:00 EST 2020 HYDROXYZINE HCL 25 MG TABLET Sat Feb 08 15:55:00 EST 2020 Jie Feb 13 15:54:00 EST 2020 ADVAIR DISKUS 250/50 (FLUTICAS ONE PROPIONATE-SALMETEROL XINAFOATE) 0.25MG/1 ACTUATION-0.05MG/1 ACTUATION DISK Sa t Feb 08 15:55:00 EST 2020 Sat Mar 07 15:54:00 EST 2020 VENTOLIN HFA (ALBUTEROL SULFAT E) [...] Feb 05 08:00:00 EST 2020 Wed Mar 04 07:59:00 EST 2020 NARCAN (NALOXONE HCL) 4 [...] E) 0.09 MG/1 ACTUATION SUSPENSION Wed Feb 05 08:00:00 2019Aug 11 07:59:00 EST 2019 ADVAIR DISKUS 250/50 (FLUTICAS ONE PROPIONATE-SALMETEROL XINAFOATE) 0.25MG/1 ACTUATION-0.05MG/1 ACTUATION DISK We Jul 15 08:00:00 2019Aug 11 07:59:00 2019 HYDROXYZINE HCL 25 MG TABLET SatJul 15 12:24:00 2019b 12:23:00 EST 2019 ZOFRAN (ONDANSETRON) 4 MG TABLET, DISINTEGRATING SatJul 15 12:24:00 2019b 12:23:00 2019 CATAPRES (CLONIDINE HYDROCHLORIDE) 0.1 MG TABLET SatJul 15 12:24:00 2019Jul 20 12:23:00 2019 NARCAN (NALOXONE HCL) 4 MG/0.1 ML SPRAY SatJul 15 12:24:00 2019Jul 29 12:23:00 EST 2019 XOPENEX (LEVALBUTEROL HYDROCHLORIDE) 1.25 MG /3 ML SOLUTION SatJul 15 12:24:00 2019Aug 11 12:23 :00 EST 2019 TRIPLE ANTIBIOTIC OINTMENT 40 0UNITS/1GM-3.5MG/1GM-5000UNITS/1GM OINTMENT SatJul 15 12:24:00 2019Aug 11 12:23:00 EST 2020 PEPCID (FAMOTIDINE) 40 MG TABLET SatJul 15 12:24:00 2019Aug 11 12:23:00 EST 2019 PEPTO-BISMOL (BISMUTH SUBSALICYLATE) 262 MG/ 15 ML SUSPENSION SatJul 15 12:24:00 2019Aug 11 12:23 :00 EST 2020 ORAJEL MOUTH SORE MEDICINE (BE NZALKONIUM CHLORIDE-BENZOCAINE/ZINC CHLORIDE) 0.02%-20%-0.1% GEL/JELLY Sat 0 5 12:24:00 2019Aug 11 12:23:00 EST 2020 MYLANTA (ALUMINUM HYDROXIDE-MA GNESIUM HYDROXIDE-SIMETHICONE) 200MG/5 ML-200MG/5 ML-20MG/5 ML SUSPENSION SatJul 15 12:24:00 2019Aug 11 12:23:00 EST 2019 MULTIVITAMIN TABLET SatJul 15 12:24:00 EST 2019Aug 11 12:23:00 EST 2019 MILK OF MAGNESIA 400 MG/5 ML SOLUTION SatJul 15 12:24:00 2019Aug 11 12:23:00 EST 2019 MELATONIN 5 MG CAPSULE SatJul 15 12:24:00 2019Aug 11 12:23:00 EST 2019 IMODIUM A-D (LOPERAMIDE HYDROC HLORIDE) 2 MG CAPSULE, LIQUID FILLED SatJul 15 12:24:00 2019Aug 11 12:23:00 EST 2019 IBUPROFEN 200 MG TABLET SatJul 15 12:24:00 2019Aug 11 12:23:00 EST 2019 ICY HOT (MENTHOL-METHYL SALICYLATE) 10%-30% CREAM SatJul [...] 15 12:24:00 2019Aug 11 12:23:00 EST 2019 BENADRYL ALLERGY (DIPHENHYDRAM INE HYDROCHLORIDE) 25 MG TABLET SatJul 15 12:24:00 2019Aug 11 12:23:00 EST 2019 BENADRYL ALLERGY (DIPHENHYDRAM INE HYDROCHLORIDE) 25 MG TABLET SatJul 15 12:24:00 EST 2019Aug 11 12:23:00 EST 2020 TUMS (CALCIUM CARBONATE) 500 MG TABLET, CHEWABLE SatJul 15 12:24:00 2019Aug 11 12:23:00 EST 2020 GAS-X (SIMETHICONE) 80 MG TABLET, CHEWABLE SatJul 15 12:24:00 EST 2019Aug 11 12:23:00 EST 2020 ACETAMINOPHEN 500 MG CAPSULE SatJul 15 12:24:00 2019Aug 11 12:23:00 EST 2020 NICODERM CQ (NICOTINE) 14 MG/24 HR PATCH, EX TENDED RELEASE SatJun 26 08:04:00 2019Jul 03 08:03 :00 EST 2019 HYDROXYZINE HCL 25 MG TABLET SatJun 26:04:00 2019Jul 01 08:03:00 EST 2019 ZOFRAN (ONDANSETRON) 4 MG TABLET, DISINTEGRATING SatJun 26:04:00 EST 2019Jul 01 08:03:00 EST 2019 CATAPRES (CLONIDINE HYDROCHLORIDE) 0.1 MG TABLET SatJun 26:04:00 2019Jul 01 08:03:00 2019 NARCAN (NALOXONE HCL) 4 MG/0.1 ML SPRAY SatJun 26:04:00 EST 2019Jul 10 08:03:00 2019 XOPENEX (LEVALBUTEROL HYDROCHLORIDE) 1.25 MG /3 ML SOLUTION SatJun 26 08:04:00 EST 2019 Fri Feb 08:03 :00 EST 2020 TRIPLE ANTIBIOTIC OINTMENT 40 0UNITS/1GM-3.5MG/1GM-5000UNITS/1GM OINTMENT SatJun 26 08:04:00 EST 2019 Fr i Feb 08:03:00 EST 2020 PEPCID (FAMOTIDINE) 40 MG TABLET SatJun 26 08:04:00 EST 2020 Fri Feb 08:03:00 EST 2020 PEPTO-BISMOL (BISMUTH SUBSALICYLATE) 262 MG/ 15 ML SUSPENSION SatJun 26 08:04:00 EST 2020 Fri Feb 14 08:03 :00 EST 2020 ORAJEL MOUTH SORE MEDICINE (BE NZALKONIUM CHLORIDE-BENZOCAINE/ZINC CHLORIDE) 0.02%-20%-0.1% GEL/JELLY SatJun 10 08:04:00 EST 2020 Fri Feb 08:03:00 EST 2020 MYLANTA (ALUMINUM HYDROXIDE-MA GNESIUM HYDROXIDE-SIMETHICONE) 200MG/5 ML-200MG/5 ML-20MG/5 ML SUSPENSION SatJun 26 08:04:00 EST 2019 Fri Feb 14 08:03:00 EST 2020 MULTIVITAMIN TABLET SatJun 26 08:04:00 EST 2020 Fri Feb 14 08:03:00 EST 2020 MILK OF MAGNESIA 400 MG/5 ML SOLUTION SatJun 26 08:04:00 EST 2019 Fri Feb 08:03:00 EST 2019 MELATONIN 5 MG CAPSULE SatJun 26 08:04:00 EST 2020 Fri Feb 14 08:03:00 EST 2020 IMODIUM A-D (LOPERAMIDE HYDROC HLORIDE) 2 MG CAPSULE, LIQUID FILLED SatJun 26 08:04:00 EST 2020 Fr i Feb 14 08:03:00 EST 2020 IBUPROFEN 200 MG TABLET SatJun 26 08:04:00 EST 2020 Fri Feb 14 08:03:00 EST 2020 ICY HOT (MENTHOL-METHYL SALICYLATE) 10%-30% CREAM SatJun 26 08:04:00 EST 2020 Fri Feb 14 08:03:00 EST 2020 GUAIFENESIN 600 MG TABLET, EXTENDED RELEASE Fri Jun 26 08:04:00 EST 2020 Fri Feb 14 08:03:00 EST 2020 FIBER-LAX 625 MG TABLET SatJun 26 08:04:00 2019 Fri Feb 14 08:03:00 EST 2020 COLACE (DOCUSATE SODIUM) 100 MG CAPSULE, LIQ UID FILLED Fri Jun 26 08:04:00 EST 2020 Fri Feb 14 08:03 :00 EST 2020 CLARITIN (LORATADINE) 10 MG TABLET SatJun 26 08:04:00 EST 2020 Fri Feb 14 08:03:00 EST 2020 BENADRYL ALLERGY (DIPHENHYDRAM INE HYDROCHLORIDE) 25 MG TABLET SatJun 26 08:04:00 EST 2020 Fr i Feb 14 08:03:00 EST 2020 BENADRYL ALLERGY (DIPHENHYDRAM INE HYDROCHLORIDE) 25 MG TABLET SatJun 26 08:04:00 EST 2020 Fr i Feb 14 08:03:00 EST 2020 TUMS (CALCIUM CARBONATE) 500 MG TABLET, CHEWABLE Fri Jun 26 08:04:00 EST 2020 Fri Feb 14 08:03:00 EST 2020 GAS-X (SIMETHICONE) 80 MG TABLET, CHEWABLE Fri Jun 26 08:04:00 EST 2020 Fri Feb 14 08:03:00 EST 2020 ACETAMINOPHEN 500 MG CAPSULE SatJun 26 08:04:00 EST 2020 Fri Feb 14 08:03:00 EST 2020 VALIUM (DIAZEPAM) 5 MG TABLET Sun Jun 28 08:00:00 EST 2019 Mon Jun 29 07:59:00 EST 2019 VALIUM (DIAZEPAM) 5 MG TABLET SatJun 27 08:00:00 EST 2019 Sun Jun 28 07:59:00 EST 2019 VALIUM (DIAZEPAM) 5 MG TABLET Sat Jun 27 17:31:00 EST 2019 Sun Jun 28 17:30:00 EST 2019 VALIUM (DIAZEPAM) 5 MG TABLET SatJun 26 17:31:00 2019Jun 27 17:30:00 2019 VALIUM (DIAZEPAM) 5 MG TABLET SatJun 26 17:31:00 2019Jun 27 17:30:00 2019 VALIUM (DIAZEPAM) 5 MG TABLET SatJun 25 08:00:00 2019Jun 26 07:59:00 2019 VALIUM (DIAZEPAM) 5 MG TABLET SatJun 26 08:00:00 2019Jun 29 07:59:00 2019 VALIUM (DIAZEPAM) 5 MG TABLET SatJun 25 08:00:00 2019Jun 26 07:59:00 2019 SUBOXONE (BUPRENORPHINE-NALOXONE) 4MG-1MG FILM SatJun 25 08:00:00 2019Jul 02 07:59:00 2019 SUBOXONE (BUPRENORPHINE-NALOXONE) 4MG-1MG FILM SatJun 25 08:00:00 2019Jun 26 07:59:00 2019 ADVAIR DISKUS 250/50 (FLUTICAS ONE PROPIONATE-SALMETEROL XINAFOATE) 0.25MG/1 ACTUATION-0.05MG/1 ACTUATION DISK Jun 25 08:00:00 2019u Fe 13 07:59:00 2019 PROAIR HFA (ALBUTEROL SULFATE) 0.09 MG/1 ACTUATION SUSPENSION SatJun 25 08:00:00 2019 u Fe 13 07:59:00 2019 NICOTINE 14 MG/24 HR PATCH, EXTENDED RELEASE SatJun 25 08:00:00 2019Jul 23 07:59:00 2019 Gabapentin 300 MG CAP Take two (2) capsules by mouth three times a day SatDec 22 00:00:00 ED2018u Sep 00:00 :00 2018 Prazosin HCl 1 MG CAP Take one (1) capsule by mouth at bedtime SatDec 22 00:00:00 2018u Sep 00:00 :00 ED2018 traZODone hydrochloride 100 MG TAB Take one (1) or two (2) tablets by mouth at bedtime, as needed. SatDec 22 00:00:00 2018u Sep 00:00:00 ED2018 Topamax 25 MG CAP Take one (1) caps ule by mouth twice a day SatDec 22:00:00 2018 [facility] Sep 12 00:00 :00 2018 Prazosin HCl 5 MG CAP Take one (1) capsule by mouth at bedtime SatDec 22 00:00:00 2018 [facility] Sep 12 00:00 :00 2018 hydrOXYzine Pamoate 50 MG CAP Take one (1) capsule by mouth twice a day, as needed SatDec 22 00:00:00 2018 [facility] Sep 00:00:00 2018 hydrOXYzine Pamoate 50 MG CAP Take one (1) capsule by mouth twice a day, as needed SatNov 24 00:00:00 2018Dec 22 00:00:00 2018 Prazosin HCl 1 MG CAP Take one (1) capsule by mouth at bedtime SatNov 24 00:00:00 2018Dec 22 00:00 :00 2018 traZODone hydrochloride 100 MG TAB Take one (1) or two (2) tablets by mouth at bedtime, as needed. SatNov 24 00:00:00 2018Dec 22:00:00 2018 Topamax 25 MG CAP Take one [...] bedtime, as needed. SatSep 24 00:00:00 2018October 23 00:00:00 2018 Prazosin HCl 1 MG CAP Take [...] four times a day SatSep 24 00:00:00 2018October 23 00:00 :00 2018 Topamax 25 MG [...] DISK Sep 23 09:00:00 2018October 21 08:59:00 2018 SUBOXONE (BUPRENORPHINE-NALOXONE) 12MG-3MG FILM SatSep 23 09:00:00 2018Oct 07 08:59:00 2018 SUBOXONE (BUPRENORPHINE-NALOXONE) 12MG-3MG FILM SatSep 22 11:00:00 2018Oct 06 10:59:00 2018 NICOTINE 14 MG/24 HR PATCH, EXTENDED RELEASE SatSep 15 09:00:00 2018October 13 08:59:00 EDT 2018 TOPIRAMATE 50 MG TABLET SatSep 12 12:10:00 EDT 2018Sep 15 12:09:00 EDT 2018 PRAZOSIN HCL 1 MG CAPSULE SatSep 12 12:07:00 EDT 2018October 10 12:06:00 EDT 2018 HYDROXYZINE HCL 50 MG TABLET SatSep 12 12:05:00 EDT 2018October 10 12:04:00 EDT 2018 TRAZODONE HYDROCHLORIDE 100 MG TABLET SatSep 12 12:04:00 EDT 2018October 10 12:03:00 EDT 2018 BUPROPION HCL 150 MG TABLET, EXTENDED RELEAS E, 24 HR SatSep 12 12:04:00 EDT 2018October 10 12:03 :00 EDT 2018 GABAPENTIN 300 MG CAPSULE SatSep 12 12:04:00 EDT 2018October 10 12:03:00 EDT 2018 PRAZOSIN HCL 5 MG CAPSULE SatSep 12 12:02:00 EDT 2018October 10 12:01:00 EDT 2018 TOPIRAMATE 25 MG TABLET SatSep 12 12:06:00 EDT 2018October 10 12:05:00 EDT 2018 TRAZODONE HYDROCHLORIDE 100 MG TABLET SatSep 11 08:00:00 EDT 2018Sep 25 07:59:00 EDT 2018 TOPIRAMATE 25 MG TABLET SatSep 08 18:07:00 EDT 2018Sep 12 18:06:00 EDT 2018 IBUPROFEN 200 MG TABLET SatSep 08 09:00:00 EDT 2018 06 08:59:00 EDT 2019 SUBOXONE (BUPRENORPHINE-NALOXONE) 12MG-3MG FILM SatSep 08 09:00:00 EDT 2018Sep 22 08:59:00 EDT 2018 PRAZOSIN HCL 1 MG CAPSULE SatSep 08 12:12:00 EDT 2018Oct 06 12:11:00 EDT 2019 DICYCLOMINE HCL 20 MG TABLET SatSep 07 15:09:00 EDT 2018Oct 05 15:08:00 EDT 2018 MIRALAX (POLYETHYLENE GLYCOL 3 350) 17 GM/1 DOSE POWDER FOR SOLUTION SatSep 06 09:00:00 EDT 2018 Th u Sep 04 08:59:00 EDT 2018 MIRALAX (POLYETHYLENE GLYCOL 3 350) 17 GM/1 DOSE POWDER FOR SOLUTION SatSep 05 09:00:00 EDT 2018 Sa t Mar 30 08:59:00 EDT 2019 LINZESS (LINACLOTIDE) 290 MCG CAPSULE SatSep 03 09:00:00 EDT 2018Oct 01 08:59:00 EDT 2018 TOPIRAMATE 50 MG TABLET SatSep 05 17:01:00 EDT 2018Oct 03 17:00:00 EDT 2018 TOPIRAMATE 25 MG TABLET SatSep 02 17:00:00 EDT 2018Sep 05 16:59:00 EDT 2018 LINEZOLID 600 MG TABLET SatSep 01 09:00:00 EDT 2018Sep 08 08:59:00 EDT 2019 BACTRIM DS (SULFAMETHOXAZOLE-T RIMETHOPRIM) 800MG-160MG TABLET SatSep 01 09:00:00 EDT 2018 Mo n Sep 08 08:59:00 EDT 2018 NICODERM CQ (NICOTINE) 21 MG/24 HR PATCH, EX TENDED RELEASE SatAug 30 09:00:00 EDT 2018 Sat Sep 27 [...] 27 22:38:00 EDT 2018Sep 24 22:37:00 EDT 2018 BUPROPION HCL 150 MG TABLET, EXTENDED RELEAS E, 24 HR SatAug 27 22:37:00 EDT 2018Sep 24 22:36 :00 EDT 2018 PREDNISONE 20 MG TABLET SatAug 27 22:36:00 EDT 2018Sep 24 22:35:00 EDT 2018 ZIPRASIDONE HCL 20 MG CAPSULE SatAug 27 22:34:00 EDT 2018Sep 24 22:33:00 EDT 2019 GABAPENTIN 300 MG CAPSULE SatAug 27 22:33:00 EDT 2018Sep 24 22:32:00 EDT 2018 PRAZOSIN HCL 5 MG CAPSULE SatAug 27 22:33:00 EDT 2018Sep 24 22:32:00 EDT 2018 MONTELUKAST SODIUM 10 MG TABLET SatAug 27 22:32:00 EDT 2018Sep 24 22:31:00 EDT 2018 ZOFRAN (ONDANSETRON HYDROCHLORIDE) 4 MG TABLET SatAug 27 17:41:00 EDT 2018Sep 24 17:40:00 EDT 2019 XOPENEX (LEVALBUTEROL HYDROCHLORIDE) 1.25 MG /3 ML SOLUTION SatAug 27 17:41:00 EDT 2018Sep 24 17:40 :00 EDT 2018 TRIPLE ANTIBIOTIC 400UNITS/1G M-3.5MG/1GM-5000UNITS/1GM OINTMENT SatAug 27 17:41:00 EDT 2018 We d Sep 24 17:40:00 EDT 2019 ZANTAC (RANITIDINE HYDROCHLORIDE) 150 MG TABLET SatAug 27 17:41:00 EDT 2018Sep 24 17:40:00 EDT 2019 PHENYLEPHRINE HCL 10 MG TABLET SatAug 27 17:41:00 EDT 2018Sep 24 17:40:00 EDT 2019 PEPTO-BISMOL (BISMUTH SUBSALICYLATE) 262 MG/ 15 ML SUSPENSION SatAug 27 17:41:00 EDT 2018Sep 24 17:40 :00 EDT 2019 ORAJEL MOUTH SORE MEDICINE (BE NZALKONIUM CHLORIDE-BENZOCAINE/ZINC CHLORIDE) 0.02%-20%-0.1% GEL/JELLY Sat 2 0 17:41:00 EDT 2018 17 17:40:00 EDT 2019 MYLANTA (ALUMINUM HYDROXIDE-MA GNESIUM HYDROXIDE-SIMETHICONE) 200MG/5 ML-200MG/5 ML-20MG/5 ML SUSPENSION Sat 20 17:41:00 EDT 2018 17 17:40:00 EDT 2019 MULTIVITAMIN TABLET Sat 20 17:41:00 EDT 2018 17 17:40:00 EDT 2019 MILK OF MAGNESIA 400 MG/5 ML SOLUTION Sat 20 17:41:00 EDT 2018Sep 24 17:40:00 EDT 2019 MELATONIN 5 MG CAPSULE Sat 20 17:41:00 EDT 2018Sep 24 17:40:00 EDT 2019 ICY HOT (MENTHOL-METHYL SALICYLATE) 10%-30% CREAM Sat 20 17:41:00 EDT 2018Sep 24 17:40:00 EDT 2019 GUAIFENESIN 600 MG TABLET, EXTENDED RELEASE SatAug 27 17:41:00 EDT 2018Sep 24 17:40:00 EDT 2019 FIBER-LAX 625 MG TABLET Sat 20 17:41:00 EDT 2018Sep 24 17:40:00 EDT 2019 COLACE (DOCUSATE SODIUM) 100 MG CAPSULE, LIQ UID FILLED Sat 20 17:41:00 EDT 2018 17 17:40 :00 EDT 2019 CLARITIN (LORATADINE) 10 MG TABLET SatAug 27 17:41:00 EDT 2018Sep 24 17:40:00 EDT 2019 BENADRYL ALLERGY (DIPHENHYDRAM INE HYDROCHLORIDE) 25 MG TABLET Sat 20 17:41:00 EDT 2019 We d Sep 24 17:40:00 EDT 2019 BENADRYL ALLERGY (DIPHENHYDRAM INE HYDROCHLORIDE) 25 MG TABLET Sat 20 17:41:00 EDT 2019 We d Sep 17 17:40:00 EDT 2019 TUMS (CALCIUM CARBONATE) 500 MG TABLET, CHEWABLE Sat 20 17:41:00 EDT 2018Sep 24 17:40:00 EDT 2019 GAS-X (SIMETHICONE) 80 MG TABLET, CHEWABLE Sat 20 17:41:00 EDT 2018Sep 24 17:40:00 EDT 2019 ACETAMINOPHEN 500 MG CAPSULE Sat 20 17:41:00 EDT 2018Sep 24 17:40:00 EDT [address] one and one half (1.5) films under the tongue daily SatNov 18 00:00:00 EDT 2017Nov 27 00:00:00 EDT 2017 Prazosin HCl 1 MG CAP Take one (1) capsule by mouth at bedtime SatSep 19 00:00:00 ED2017Sep 28 00:00 :00 ED2017 busPIRone HCl 15 MG TAB Take one (1 ) tablet by mouth twice a day SatSep 19 00:00:00 EDT 2017Sep 28 00:00 :00 ED2017 chlorproMAZINE HCl 25 MG TAB Take o ne (1) tablet by mouth four times a day SatSep 19 00:00:00 ED2017Sep 28 00:00:00 ED2017 hydrOXYzine HCl 25 MG TAB Take one (1) tablet by mouth every 6 hours SatJul 25 00:00:00 EST 2017Aug 03 00:00 :00 EST 2017 Problems Active Concerns * Opioid abuse * Code: 2998761 * Start Date: SatJun 10 11:00:00 EST [...] * Alcohol use disorder, severe * Code: 66410222 * Start Date: SatJun 24 07:00:00 EST 2019 * Text: * Severe nicotine withdrawal * Code: 34963408 * Start Date: SatJun 24 07:00:00 2019 * Text: * Stimulant use disorder * Code: 912697312 * Start Date: SatJun 24 07:00:00 2019 * Text: * Synthetic cannabinoid dependence * Code: 833985115 * Start Date: SatJul 15 07:00:00 2019 * Text: * Opioid use disorder, severe, dependence * Code: 74921903 * Start Date: SatJul 15 07:00:00 2019 * Text: * Current every day smoker * Code: 786023166 * Start Date: SatJul 15 07:00:00 2019 * Text: * Bipolar disorder with psychotic features * Code: 46626738 * Start Date: SatSep 29 08:00:00 EDT [...] Every Da y Smoker SatJun 13 07:00:00 2020 Smoking Status Current Every Da y Smoker SatJun 13 07:00:00 2020 Smoking Status Current Every Da y Smoker SatJun 13 07:00:00 2020 Smoking Status Current Every Da y Smoker SatJun 13 07:00:00 2020 Smoking Status Current Every Da y Smoker SatJun 13 07:00:00 2020 Smoking Status Current Every Da y Smoker SatJun 13 07:00:00 2020 Smoking Status Current Every Da y Smoker SatApr 04 08:00:00 ED2019 Smoking Status Current Every Da y Smoker [...] EDT 2020 Systolic 125 MM[HG] SatDec 28 3:25:00 EDT 2020 Diastolic 83 MM[HG] SatDec [...] 2020 BP Position 2 Position SatOctober 08 2 10:30:00 EDT 2020 Height 4 9.0 ft [...] 36.4 SUSANA SatMar 11 6 11:09:00 EDT 2020 Heart Rate 69 /MIN SatApr 04 11:09:00 EDT 2020 Respiration 16 /MIN SatMar 11 6 11:09:00 EDT 2020 SpO2 98 % SatApr 04 11:09 :00 EDT 2020 Systolic 115 MM[HG] SatApr 04 1 1:09:00 EDT 2020 Diastolic 80 MM[HG] SatApr 04 11:09:00 EDT 2020 BP Position 2 Position SatMar 11 6 11:09:00 EDT 2020 Height 4 9 ft SatApr 04 11: 09:00 EDT 2019 Height 57 in SatApr 04 11: 09:00 EDT 2020 Height 144.8 cm SatApr 04 11: 09:00 EDT 2020 Weight Lbs 222 lbs SatApr 04 11:09:00 EDT 2020 Weight Kgs 100.9 KG SatApr 04 11:09:00 EDT 2020 BMI 48 SatApr 04 11:09: 00 EDT 2020 Pain Scale 3 Scale SatApr 04 11:09:00 EDT 2020 Temperature 97.4 [DEGF] Mon Feb 24 08:56:00 EST 2020 Temperature 36.3 SUSANA Sat Feb 2 4 08:56:00 EST 2020 Heart Rate 86 /MIN Mon Feb 24 08:56:00 EST 2020 Systolic 123 MM[HG] Mon Feb 24 0 8:56:00 EST 2020 Diastolic 70 MM[HG] Mon Feb 24 08:56:00 EST 2020 Height 4 9 ft Sat Feb 24 08: 56:00 EST 2020 Height 57 in Sat Feb 24 08: 56:00 EST 2020 Height [...] EST 2020 Temperature 36.7 SUSANA Sat Jun 1 8 10:20:00 EST 2020 Heart Rate 75 /MIN Sat Jun 18 10:20:00 EST 2020 Respiration 16 /MIN Sat Jun 1 8 10:20:00 EST 2020 Systolic 113 MM[HG] Sat Jun 18 1 0:20:00 EST 2020 Diastolic 77 MM[HG] Sat Jun 18 10:20:00 EST 2020 BP Position 3 Position Sat Jun 10 8 10:20:00 EST 2020 Temperature 97.1 [DEGF] Sat Jun 18 03:01:00 EST 2020 Temperature 36.2 SUSANA Sat Jun 1 8 03:01:00 EST 2020 Heart Rate 71 /MIN Sat Jun 18 03:01:00 EST 2020 Respiration 16 /MIN Sat Jun 1 8 03:01:00 EST 2020 Systolic 114 MM[HG] Sat Jun 18 0 3:01:00 EST 2020 Diastolic 66 MM[HG] Sat Jun 18 03:01:00 EST 2020 Heart Rate 74 /MIN Sat 17 20:15:00 EST 2020 Respiration 16 /MIN Sat 1 7 20:15:00 EST 2020 Systolic 112 MM[HG] Fri Jun 17 2 0:15:00 EST 2020 Diastolic 63 MM[HG] Sat 17 20:15:00 EST 2020 BP Position 3 Position SatJun 10 20:15:00 EST 2020 Temperature 98.0 [DEGF] SatJun [...] 7 02:40:00 EST 2020 Systolic 106 MM[HG] SatJun 26 0 2:40:00 EST 2020 Diastolic 62 MM[HG] SatJun 26 02:40:00 EST 2020 BP Position 2 Position SatJun 10 02:40:00 EST 2020 Heart Rate 60 /MIN [...] 2020 BP Position 1 Position SatJun 10 02:48:00 EST 2020 Heart Rate 66 /MIN SatJun 24 18:20:00 EST 2020 Respiration 16 /MIN SatJun 10 18:20:00 EST 2020 Systolic 110 MM[HG] SatJun 24 1 8:20:00 EST 2020 Diastolic 65 MM[HG] SatJun 24 18:20:00 EST 2020 Temperature 97.2 [DEGF] SatJun 24 15:42:00 EST 2020 Temperature 36.2 SUSANA SatJun 10 15:42:00 EST 2020 Heart Rate 70 /MIN [...] 09:45: 00 EST 2020 Temperature 98.0 [DEGF] SatFeb 07 12:39:00 EDT 2018 Temperature 36.7 SUSANA SatJan 10 12:39:00 EDT 2018 Heart Rate 69 /MIN SatFeb 07 12:39:00 EDT 2018 Respiration 14 /MIN SatJan 10 12:39:00 EDT 2019 SpO2 98 % SatFeb 07 12:39 :00 EDT 2018 Systolic 100 MM[HG] Sat Feb 07 2:39:00 EDT 2018 Diastolic 59 MM[HG] Sat Feb 07 12:39:00 EDT 2018
--- OUTSIDE RECORDS SUMMARY | 2021-03-23 20:16 | CCD ---
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 Name Role Phone Yaron Lobato AttendingPractitioner1 Peyton Tavarez Practitioner Cassidy Strauss Practitioner Dao Junior Practitioner Javier Goldstein Practitioner Ambar Patel AdmittingPractitioner1 Donna Buenrostro Practitioner Swati Katz Practitioner Livia Nguyen AttendingPractitioner1 Kathryn Sinha Practitioner Namrata Armstrong Practitioner Nic Mitchell AttendingPractitioner1 Artemio Orantes Attphys Alvin Fields Practitioner Kylie Ann Practitioner Kodak Koo Practitioner Karla Person Practitioner Tashia Campo Practitioner Carri Moore Practitioner Sneha Celeste Practitioner Quintin Cornell AdmittingPractitioner1 Zara Valdez Practitioner Samuel Pierce Practitioner Functional Status No Results Allergies Name Onset Date Reaction Severity SULFAMETHOXAZOLE (Allergy) SatJun 24 07:00:00 EST 2019 Hives Moderate to severe PCN (penicillin) (Allergy) SatJun 24 07:00:00 EST 2019 Hives Moderate to severe CLINDAMYCIN (Allergy) SatJun 24 07:00:00 EST 2019 Hives Moderate to severe KETOROLAC (Allergy) SatJun 24 07:00:00 EST 2019 Hives Moderate METRONIDAZOLE (Allergy) SatJun 24 07:00:00 EST 2019 Headache (finding) Moderate NONSTEROIDAL ANTIINFLAMMATORY DRUG (Allergy) SatJun 24 07:00:00 EST 2019 Other or Unspecified Life threatening severity HYDROCORTISONE (Allergy) SatJun 24 07:00:00 EST 2019 Pruritic rash (disorder) Severe NUTS (Allergy) W ed Jun 24 07:00:00 EST 2019 RED DYE (Allergy) SatJun 24 07:00:00 EST 2019 Encounters Program Name Primary Diagnosis Admission Date/ Time Discharge Date/Time [facility] Synthetic davey abinoid dependence SatDec 28 10:30:00 EDT 2020Jan 25 11:30:00 EDT 2020 [facility] Sat 02:02:00 EST 2019 [facility] SatOctober 08 11:40:00 EDT 2017 [facility] SatJan 10 11:41:00 EDT 2017 [facility] SatAug 19 09:30:00 EDT 2019 [facility] SatAug 27 14:15:00 EDT 2019 [facility] Drug abuse counseling and surveillance of drug abuser SatAug 03 08:19:00 2019Feb 15 08:55:00 EDT 2020 [facility] Polysubstance abuse SatJun 24 09:10:00 EST 2019Aug 03 08:17:00 EST 2019 [facility] SatSep 11 09:41:00 EDT 2019 [facility] SatSep 24 13:11:00 EDT 2018Mar 02 11:08:00 EDT 2019 [facility] SatOct 01 08:57:00 EDT 2019Nov 19 13:39:00 EDT 2020 [facility] SatJan 08 10:39:00 EDT 2017 [facility] SatJan 09 10:42:00 EDT 2017 [facility] Synthetic cannabinoid dependence Sat Jul 18 14:16:00 EST 2019Jul 20 11:58:00 EST 2019 [facility] Heroin use disorder, severe, on maintenance therapy, dependence SatAug 20 09:30:00 EDT 2019October 14 11:29:00 EDT 2020 [facility] SatSep 24 12:11:00 EDT 2018 [facility] Heroin use disorder, moderate, dependence SatApr 04 10:25:00 EDT 2019Jan 05 11:15:00 EDT 2020 [facility] Synthetic cannabinoid dependence Wed Jul 15 10:25:00 EST 2019 Sat Jul 18 14:14:00 EST 2019 [facility] SatJul 10 16:04:00 EST 2018 [facility] Wait[facility] SatJun 13 13:54:00 EST 2020Jun 27 17:13:00 EST 2020 [facility] Severe opioid use disorder SatJul 20 11:59:00 EST 2019Aug 01 17:29:00 EST 2019 [facility] SatJan 12 09:36:00 EDT 2016 [facility] Alcohol use disorder, severe SatJun 24 14:16:00 EST 2019Jun 27 13:25:00 EST 2019 Immunizations No Known Immunizations Lab Results Result Type Result Value Date SYNTHETIC CANNABINOIDS, QL, (U) NEGATIVE CONFIRMED SatFeb 04 14:04:00 EDT 2018 SYNTHETIC CANNABINOIDS CONFIRM: NEGATIVE SatFeb 04 14:04:00 EDT 2019 COMMENT see note SatFeb 04 14 :04:00 EDT 2019 Amphetamines NEGATIVE ng/mL SatFeb 04 14:04:00 EDT 2018 Amphetamine DNR ng/mL SatJan 09 8 14:04:00 EDT 2018 Methamphetamine DNR ng/mL Sat 14:04:00 EDT 2019 Confirmation Testing Performed at: DNR SatFeb 04 14:04:00 EDT 2019 COMMENT SatFeb 04 14 :04:00 EDT 2019 Barbiturates NEGATIVE CONFIRMED ng/mL SatFeb 04 14:04:00 EDT 2019 Amobarbital NEGATIVE ng/mL Sat ug 14:04:00 EDT 2019 Butalbital NEGATIVE ng/mL Sat g 28 14:04:00 EDT 2019 Pentobarbital NEGATIVE ng/mL SatFeb 04 14:04:00 EDT 2019 Phenobarbital NEGATIVE ng/mL SatFeb 04 14:04:00 EDT 2019 Secobarbital NEGATIVE ng/mL SatFeb 04 14:04:00 EDT 2019 Confirmation Testing Performed at: DNR SatFeb 04 14:04:00 EDT 2019 COMMENT SatFeb 04 14 :04:00 EDT 2019 Benzodiazepines NEGATIVE ng/mL W ed Feb 04 14:04:00 EDT 2019 Alphahydroxyalprazolam DNR ng/mL SatFeb 04 14:04:00 EDT 2018 Alphahydroxymidazolam DNR ng/mL SatFeb 04 14:04:00 EDT 2018 Alphahydroxytriazolam DNR ng/mL SatFeb 04 14:04:00 EDT 2019 Aminoclonazepam DNR ng/mL Wed 14:04:00 EDT 2018 Hydroxyethylflurazepam DNR ng/mL SatFeb [...] NEGATIVE CONFIRMED mg/dL SatFeb 04 14:04:00 EDT 2019 Alcohol, Ethyl NEGATIVE mg/dL We Feb 04 [...] ng/mL S at Jun 27 15:16:00 EST 2019 Alphahydroxyalprazolam DNR ng/mL Sat Jun 27 15:16:00 EST 2020 Alphahydroxymidazolam DNR ng/mL Sat Jun 27 15:16:00 EST 2020 Alphahydroxytriazolam DNR ng/mL Sat Jun 27 15:16:00 EST 2020 Aminoclonazepam DNR ng/mL Sat J an 18 15:16:00 EST 2020 Hydroxyethylflurazepam DNR ng/mL Sat [...] Alcohol, Ethyl DNR mg/dL Sat Ja n 15:16:00 EST 2020 Confirmation Testing Performed at: [...] 2019 Hydrocodone DNR ng/mL Sat Jun 10 8 15:16:00 EST 2020 Hydromorphone DNR ng/mL Sat Jun 27 15:16:00 EST 2020 Morphine DNR ng/mL Sat Jun 27 1 5:16:00 EST 2020 Norhydrocodone DNR ng/mL Sat 15:16:00 EST 2020 Confirmation Testing Performed at: DNR Sat Jun 27 15:16:00 EST 2020 COMMENT Sat Jun 27 15 :16:00 EST 2020 Buprenorphine NEGATIVE ng/mL Sat Jun 27 15:16:00 EST 2020 COMMENT Sat Jun 27 15 :16:00 EST 2019 COLOR YELLOW Sun Jun 28 13:4 2:00 [...] 2:00 EST 2020 COMMENTS DNR SatJun 28 1 3:42:00 EST 2020 NOTE DNR Sun Jun [...] 07:16:00 EST 2020 CASTS DNR /LPF Jie Jul 16 07:1 6:00 EST 2020 YEAST FEW /HPF Jie Jul 06 07:1 6:00 2020 COMMENTS DNR Jie Jul 06 0 7:16:00 2020 NOTE DNR Jie Jul 06 07:16 :00 2020 HIV AG/AB, 4TH GEN NON-REACTIVE SatJul 31 11:33:00 2020 CHLAMYDIA TRACHOMATIS RNA, TMA, UROGENITAL TNP SatJul 31 11:33:00 2020 NEISSERIA GONORRHOEAE RNA, TMA, UROGENITAL DNR SatJul 31 11:33:00 2020 SURESWAB(R) TRICHOMONAS VAGINALIS RNA, QL, TMA TNP SatJul 31 11:33:00 2020 SURESWAB(R), MYCOPLASMA GENITALIUM,REALTIME PCR TNP SatJul 31 11:33:00 2019 ASSAY DETAILS TNP SatJul 31 11:33:00 2019 [...] mg/dL SatJul 31 11:33:00 2020 eGFR NON-AFR. MALTESE 101 mL/min/1.73m2 SatJul 31 11:33:00 2019 eGFR 117 mL/min/1.73m2 SatJul 31 11:33:00 2020 BUN/CREATININE RATIO NOT APPLICABLE (calc ) SatJul 31 11:33:00 2020 SODIUM 135 mmol/L SatJul 31 11: 33:00 2020 POTASSIUM 4.8 mmol/L SatJul 31 11:33:00 2020 [...] 2020 ALBUMIN/GLOBULIN RATIO 1.3 (calc) Satb 11:33:00 EST 2020 BILIRUBIN, TOTAL 0.3 mg/dL Sat Feb 11:33:00 EST 2020 ALKALINE PHOSPHATASE 71 U/L Satb 11:33:00 EST 2020 AST 19 U/L Satb 11:33: 00 EST 2020 ALT 19 U/L Satb 11:33: 00 EST 2020 WHITE BLOOD CELL COUNT 9.0 Thousand/uL SatJul 31 11:33:00 2020 RED BLOOD CELL COUNT 4.58 Million/uL Satb 11:33:00 EST 2020 HEMOGLOBIN 14.7 g/dL Satb 11:33:00 EST 2020 HEMATOCRIT 43.1 % Satb 11:33:00 EST 2020 MCV 94.1 fL Sat Feb 11:33: 00 EST 2020 MCH 32.1 pg Satb 11:33: 00 EST 2020 MCHC 34.1 g/dL Satb 11:33 :00 EST 2020 RDW 13.6 % Sat Feb 11:33: 00 EST 2020 PLATELET COUNT 284 Thousand/uL F Jul 31 11:33:00 EST 2020 MPV 11.4 fL Sat Feb 11:33: 00 EST 2020 ABSOLUTE NEUTROPHILS 5724 cells/uL Satb 11:33:00 EST 2020 ABSOLUTE BAND NEUTROPHILS DNR cells/uL Satb 11:33:00 EST 2020 ABSOLUTE METAMYELOCYTES DNR cells/uL [...] BLASTS DNR cells/uL Sat Feb 21 11:33:00 2020 ABSOLUTE NUCLEATED RBC DNR cells/uL Satb 11:33:00 2020 NEUTROPHILS 63.6 % Fri Feb [...] 2019 NUCLEATED RBC DNR /100 WBC Sat eb 11:33:00 2019 COMMENT(S) DNR Satb 11:33:00 2019 HEPATITIS C ANTIBODY REACTIVE SatJul 31 11:33:00 2019 SIGNAL TO CUT-OFF 31.20 Satb 11:33:00 2019 RPR (DX) W/REFL TITER AND CONFIRMATORY TESTI NG NON-REACTIVE SatJul 31 11:33:00 2019 HCV RNA, QUANTITATIVE REAL TIME [...] 05:49:00 2019 COMMENT SatJul 21 05 :49:00 2019 HCV RNA, QUANTITATIVE REAL TIME PCR [...] 2020 POTASSIUM 4.2 mmol/L SatAug 10 23:32:00 EST 2020 CHLORIDE 106 mmol/L SatAug 10 2 3:32:00 2019 CARBON DIOXIDE 23 mmol/L [facility] r 08 30:32:00 2019 CREATININE, RANDOM URINE 104 mg/dL SatAug 10:32:00 2019 ALBUMIN, URINE 92.9 mg/dL [facility] r 08 30:32:00 2019 ALBUMIN/CREATININE RATIO, RANDOM URINE 893 mcg/mg creat SatAug 10:32:00 2019 CREATININE 0.71 mg/dL SatAug 10:32:00 2019 eGFR NON-AFR. MALTESE 113 mL/min/1.73m2 SatAug 10:32:00 2019 eGFR 132 mL/min/1.73m2 SatAug 10:32:00 2019 HEMOGLOBIN 13.2 g/dL SatAug 10:32:00 2019 PARATHYROID HORMONE, INTACT 34 pg/mL SatAug 10:32:00 2019 CALCIUM 8.8 mg/dL SatAug 10 :32:00 2019 PHOSPHATE ( PHOSPHORUS) 4.3 mg/dL SatAug 10:32:00 2019 VITAMIN D,25-OH,TOTAL,IA 19 ng/mL SatAug 10:32:00 2019 PROTEIN, TOTAL 6.8 g/dL [facility] r 08 30:32:00 2019 ALBUMIN 3.7 g/dL [...] GENOTYPE, LIPA(R) Not Detected SatAug 10 23:32:00 2019 COLOR TNP SatAug 10 23:3 2:00 [...] 03 23:32:00 EST 2020 BLASTS DNR % Tue Mar 03 23: 32:00 EST 2020 NUCLEATED RBC DNR /100 WBC e 23:32:00 EST 2020 COMMENT(S) DNR SatAug 10 [...] EST 2020 CREATININE, RANDOM URINE 106 mg/dL Fri b 28 12:48:00 EST 2020 Benzodiazepines NEGATIVE ng/mL F ri Feb 28 12:48:00 EST 2020 Alphahydroxyalprazolam DNR ng/mL Fri [...] 14:55:00 EDT 2020 Benzodiazepines NEGATIVE ng/mL S Aug 22 14:55:00 EDT 2020 Alphahydroxyalprazolam DNR ng/mL SatAug 22 14:55:00 EDT 2020 Alphahydroxymidazolam DNR ng/mL Sun [...] COMMENT Sun Mar 15 14 :55:00 EDT 2019 Buprenorphine 58 ng/mL Sun Mar 15 14:55:00 EDT 2019 Norbuprenorphine 120 ng/mL Sun Mar 15 14:55:00 EDT 2019 COMMENT Sun Mar 15 14 :55:00 EDT 2019 CREATININE, RANDOM URINE 30 mg/dL Sat Mar 12:48:00 EDT 2020 Benzodiazepines NEGATIVE ng/mL S at Mar 12:48:00 EDT 2019 Alphahydroxyalprazolam DNR ng/mL Sat Aug 28 12:48:00 EDT 2019 Alphahydroxymidazolam DNR ng/mL Sat Aug 28 12:48:00 EDT 2019 Alphahydroxytriazolam DNR ng/mL Sat Aug 28 12:48:00 EDT 2019 Aminoclonazepam DNR ng/mL Sat M ar 21 12:48:00 EDT 2019 Hydroxyethylflurazepam DNR ng/mL Sat Aug 28 12:48:00 EDT 2019 Lorazepam DNR ng/mL Sat Mar 12:48:00 EDT 2019 Nordiazepam DNR ng/mL Sat Aug 2 1 12:48:00 EDT 2019 Oxazepam DNR ng/mL Sat Aug 21 1 2:48:00 EDT 2019 Temazepam DNR ng/mL Sat Aug 21 12:48:00 EDT 2019 Confirmation Testing Performed at: DNR Sat Aug 28 12:48:00 EDT 2019 COMMENT Sat Aug 28 12 :48:00 EDT 2019 Cocaine Metabolite NEGATIVE [...] COMMENT Sat Mar 21 12 :48:00 EDT 2019 Marijuana Metabolite 20 NEGATIVE ng/mL Sat Mar 21 12:48:00 EDT 2020 Marijuana Metabolite DNR ng/mL Sat Mar 21 12:48:00 EDT 2020 Confirmation Testing Performed at: DNR Sat Mar 21 12:48:00 EDT 2020 COMMENT Sat Mar 21 12 :48:00 EDT 2020 Opiates NEGATIVE ng/mL Sat Mar 2 1 12:48:00 EDT 2019 Codeine DNR ng/mL Sat Mar 21 12 :48:00 EDT 2019 Hydrocodone DNR ng/mL Sat Mar 2 1 12:48:00 EDT 2020 Hydromorphone DNR ng/mL Sat Mar 21 12:48:00 EDT 2019 Morphine DNR ng/mL Sat Mar 21 1 2:48:00 EDT 2020 Norhydrocodone DNR ng/mL Sat Ma r 21 12:48:00 EDT 2020 Confirmation Testing Performed at: DNR Sat Aug 21 12:48:00 EDT 2019 COMMENT Sat Mar 21 12 :48:00 EDT 2019 Buprenorphine 101 [...] Aminoclonazepam DNR ng/mL Jie M 11:27:00 EDT 2020 Hydroxyethylflurazepam DNR ng/mL Jie Sep 02 11:27:00 EDT 2020 Lorazepam DNR ng/mL Jie Sep 02 11:27:00 EDT 2020 Nordiazepam DNR ng/mL Jie Aug 2 6 11:27:00 EDT 2020 Oxazepam DNR ng/mL Jie Sep 02 1 1:27:00 EDT 2020 Temazepam DNR ng/mL Jie Sep 02 11:27:00 EDT 2019 Confirmation Testing Performed at: DNR Jie Sep 02 11:27:00 EDT 2019 COMMENT Jie Sep 02 11 :27:00 EDT 2019 Cocaine Metabolite NEGATIVE ng/mL Jie Sep 02 11:27:00 EDT 2019 Benzoylecgonine DNR ng/mL Jie M ar 11:27:00 EDT 2019 Confirmation Testing Performed at: [...] EDT 2019 Opiates NEGATIVE ng/mL Jie Aug 2 6 11:27:00 EDT 2019 Codeine DNR ng/mL Jie Sep 02 11 :27:00 EDT 2019 Hydrocodone DNR ng/mL Jie Aug 2 6 11:27:00 EDT 2019 Hydromorphone DNR [...] URINE 15 mg/dL SatSep 17 01:48:00 EDT 2020 Fentanyl NEGATIVE ng/mL SatSep 17 01:48:00 EDT 2020 Norfentanyl NEGATIVE ng/mL Fri pr 01:48:00 EDT 2020 COMMENT SatSep 17 01 :48:00 EDT 2019 Benzodiazepines NEGATIVE ng/mL F ri Sep 17 01:48:00 EDT 2019 Alphahydroxyalprazolam DNR ng/mL SatSep 17:48:00 EDT 2019 Alphahydroxymidazolam DNR ng/mL SatSep 17:48:00 EDT 2019 Alphahydroxytriazolam DNR ng/mL SatSep 17:48:00 EDT 2019 Aminoclonazepam DNR ng/mL Sat A pr 10 01:48:00 EDT 2019 Hydroxyethylflurazepam DNR ng/mL SatSep 17:48:00 EDT 2019 Lorazepam DNR ng/mL SatSep 17:48:00 EDT 2019 Nordiazepam DNR ng/mL Sat Apr 1 0 :48:00 EDT 2019 Oxazepam DNR ng/mL Sat 10 0 1:48:00 EDT 2019 Temazepam DNR ng/mL SatSep 17:48:00 EDT 2019 Confirmation Testing Performed at: DNR SatSep 17:48:00 EDT 2019 COMMENT SatSep 17 01 :48:00 EDT 2019 Cocaine Metabolite NEGATIVE ng/mL SatSep 17 01:48:00 EDT 2019 Benzoylecgonine DNR ng/mL Sat pr 10 :48:00 EDT 2019 Confirmation Testing Performed at: DNR SatSep 17:48:00 EDT 2019 COMMENT SatSep 17 01 :48:00 EDT 2019 Alcohol, Ethyl NEGATIVE mg/dL Fr i Apr 10 01:48:00 EDT 2019 Alcohol, Ethyl DNR mg/dL [...] 17 01:48:00 EDT 2019 Morphine DNR ng/mL SatSep 17 0 1:48:00 EDT 2020 Norhydrocodone DNR ng/mL Fri Ap r 10 01:48:00 EDT 2020 Confirmation Testing Performed at: DNR SatSep 17:48:00 EDT 2019 COMMENT SatSep 17 :48:00 EDT 2019 Buprenorphine 18 ng/mL SatSep 17:48:00 EDT 2019 Norbuprenorphine 31 ng/mL SatSep 17 01:48:00 EDT 2019 COMMENT SatSep 17 :48:00 EDT 2019 CREATININE, RANDOM URINE 31 [...] EDT 2019 Norhydrocodone DNR ng/mL Sat 02:02:00 EDT 2019 Confirmation Testing Performed at: DNR SatOct 01 02:02:00 EDT 2019 COMMENT SatOct 01 02 :02:00 EDT 2019 Buprenorphine 48 ng/mL SatOct 01 02:02:00 EDT 2019 Norbuprenorphine 129 ng/mL SatOct 01 02:02:00 EDT 2019 COMMENT SatOct 01 02 :02:00 EDT 2019 Creatinine 92.2NORMALNORMAL mg/d L SatOctober 15 15:17:08 EDT 2020 pH 5.3NORMALNORMAL SatOctober 15 15:17:08 EDT 2020 Oxidants -7.00NegativeNegative m cg/mL SatOctober 15 15:17:08 EDT 2019 Validity Result VALIDVALIDVALID SatOctober 16 15:29:21 EDT 2020 Amphetamines 509.00PRESUMPTIVE P OSITIVEPRESUMPTIVE POSITIVE ng/mL SatOctober 15 15:17:07 EDT 2020 Barbiturates 11.00NegativeNegative* ng/mL SatOctober 15 15:17:08 EDT 2020 Benzodiazepines -11.00Negative *Negative ng/mL SatOctober 15 15:17:08 EDT 2020 Buprenorphine 105.10PRESUMPTIVE POSITIVEPRESUMPTIVE POSITIVE ng/mL SatOctober 15 [...] 14:39:05 EDT 2020 Desipramine 5.480NegativeNegative * ng/mL Sat October 16 14:39:06 EDT 2020 Creatinine 204.1NORMALNORMAL mg/ dL [facility] Feb 03 14:38:10 EDT 2020 pH 6.3NORMALNORMAL Jie Feb 03 14:38:32 EDT 2020 Oxidants -17.00NegativeNegative mcg/mL [facility] Feb 03 14:36:48 EDT 2020 Validity Result VALIDVALIDVALID [facility] Feb 03 14:45:22 EDT 2020 Amphetamines 209.00NegativeNegative ng/mL [facility] Feb 03 14:33:53 EDT 2020 Barbiturates -15.00NegativeNegative ng/mL [facility] Feb 03 14:34:12 EDT 2020 Benzodiazepines -31.00Negative *Negative ng/mL [facility] Feb 03 14:34:21 EDT 2020 Buprenorphine 0.80NegativeNegative* ng/mL [facility] Feb 03 14:34:27 EDT 2020 Cocaine Metabolites 175.00Negati veNegative ng/mL [facility] Feb 03 14:35:00 EDT 2020 Cotinine 1671.00PRESUMPTIVE POSI TIVEPRESUMPTIVE POSITIVE ng/mL [facility] Feb 03 14:35:07 EDT 2020 EDDP -91.00NegativeNegative ng/m L [facility] Feb 03 14:35:14 EDT 2020 Ethyl Glucuronide 26.00Negative* Negative ng/mL [facility] Feb 03 14:35:21 EDT 2020 Ethyl Alcohol 7.00NegativeNegative* mg/dL [facility] Feb 03 14:35:46 EDT 2020 Fentanyl 0.100NegativeNegative n g/mL [facility] Feb 03 14:35:53 EDT 2020 Heroin (6-AM) -1.30NegativeNegative ng/mL [facility] Feb 03 14:35:59 ED2019 Methadone -37.00NegativeNegative ng/mL Jie Feb 03 14:36:13 ED 2020 Opiates -32.00NegativeNegative n g/mL SatFeb 03 14:36:28 2019 Synthetic Opiates -13.00Negative Negative ng/mL SatFeb 03 14:37:06 EDT 2020 Phencyclidine -4.90NegativeNegative ng/mL [facility] Feb 03 14:37:16 ED2019 Cannabinoids 7.80NegativeNegative * ng/mL Jie Feb 03 14:37:27 2020 Tramadol -18.00NegativeNegative ng/mL Jie Feb 03 14:37:51 2019 Tricyclics 16.00NegativeNegative ng/mL Jie Feb 03 14:38:40 2019 Ecstasy (MDMA) -1.00NegativeNegativ e ng/mL SatFeb 03 14:38:49 2019 Buprenorphine 0.000Negative - In consistentNegative ng/mL SatFeb 04 11:55:39 2019 Norbuprenorphine 0.620Negative - InconsistentNegative ng/mL SatFeb 04 11:55:39 2019 Naloxone 0.000Negative - Inconsi stentNegative ng/mL SatFeb 04 11:55:39 2019 Creatinine 30.8NORMALNORMAL mg/d L SatApr 14 20:51:41 2019 pH 8.2NORMALNORMAL SatApr 14 20:51:41 2019 Oxidants -14.00NegativeNegative mcg/mL SatApr 14 20:51:41 2019 Validity Result VALIDVALIDVALID SatApr 14 21:00:28 2019 Amphetamines 62.00NegativeNegative* ng/mL Jie Nov 10 27:51:2019 Barbiturates 0.00NegativeNegative * ng/mL Jie Nov 10 27:51:41 2019 Benzodiazepines -3.00Negative Negative ng/mL Jie Nov 10 27:51:2019 Buprenorphine 43.40PRESUMPTIVE P OSITIVEPRESUMPTIVE POSITIVE ng/mL Jie Apr 14:51:2019 Cocaine Metabolites 7.00Negative Negative ng/mL Jie Nov 10 27:51:2019 Cotinine 763.00PRESUMPTIVE POSIT CHIARAPRESUMPTIVE POSITIVE ng/mL Jie Apr 14::2019 EDDP -34.00NegativeNegative ng/m L Jie Apr 14::2019 Ethyl Glucuronide -12.00Negative Negative ng/mL Jie Apr 14:51:2019 Ethyl Alcohol 1.00NegativeNegative* mg/dL Jie Apr 14:51:2019 Fentanyl 0.300NegativeNegative n g/mL SatApr 14::2019 Heroin (6-AM) 1.10NegativeNegative* ng/mL Jie Apr 14:51:2019 Methadone -11.00NegativeNegative ng/mL Jie Apr 14:51:41 2019 Opiates 0.00NegativeNegative ng/ mL Jie Nov 10 27:51:41 2019 Synthetic Opiates -16.00Negative Negative ng/mL Jie Apr 14:51:41 2019 Phencyclidine 11.70NegativeNegative ng/mL Jie Nov 10 27:51:41 2019 Cannabinoids -5.40NegativeNegative* ng/mL Jie Nov 10 27:51:41 EST 2020 Tramadol 14.00NegativeNegative n g/mL Jie Apr 14 20:51:41 2019 Tricyclics 456.00NegativeNegative * ng/mL [...] 17:21:06 2019 Fentanyl 0.500NegativeNegative n g/mL SatMay 18 17:21:06 2019 Heroin (6-AM) 2.80NegativeNegative* ng/mL SatMay 18 17:21:06 2019 Methadone -15.00NegativeNegative ng/mL SatMay 18:21:06 2019 [...] 19 16:33:47 2019 Desipramine 0.000NegativeNegative * ng/mL SatMay 19 16:33:47 2019 Creatinine 162.1NORMALNORMAL mg/ dL [...] 20:14:21 2019 Opiates -16.00NegativeNegative n g/mL SatMay 31:14:21 2019 Synthetic Opiates -23.00Negative Negative ng/mL SatMay 31 20:14:21 2019 Phencyclidine 22.10NegativeNegative ng/mL SatMay 31 20:14:46 2019 Cannabinoids -14.10NegativeNegative ng/mL SatMay 31 20:14:22 2019 Tramadol 34.00NegativeNegative n g/mL SatMay 31:14:22 2019 Tricyclics 688.00PRESUMPTIVE POS ITIVEPRESUMPTIVE POSITIVE ng/mL [...] 2020 Oxidants -11.00NegativeNegative mcg/mL SatJul 12 19:41:14 EST 2021 Validity Result VALIDVALIDVALID SatJul 12 19:45:21 2020 Amphetamines 299.00NegativeNegative ng/mL SatJul 12 19:41:14 2020 Barbiturates -2.00NegativeNegative* ng/mL SatJul 12 19:41:14 EST 2020 Benzodiazepines 3.00NegativeNegativ e ng/mL SatJul 12 19:41:14 EST 2020 Buprenorphine 111.10PRESUMPTIVE POSITIVEPRESUMPTIVE POSITIVE ng/mL SatJul 12 19:41:14 2020 Cocaine Metabolites -28.00Negati veNegative ng/mL SatJul 12 19:41:14 2020 Cotinine 649.00PRESUMPTIVE POSIT CHIARAPRESUMPTIVE POSITIVE ng/mL SatJul 12 19:41:14 2020 EDDP -97.00NegativeNegative ng/m L SatJul 12 19:41:14 2020 Ethyl Glucuronide 151.00Negative Negative ng/mL SatJul 12 19:41:14 2020 Ethyl Alcohol 0.00NegativeNegative* mg/dL SatJul 12 19:41:14 2020 Fentanyl 1.100PRESUMPTIVE POSITI VEPRESUMPTIVE POSITIVE ng/mL SatJul 12 19:41:14 2020 Heroin (6-AM) -0.10NegativeNegative ng/mL SatJul 12 19:41:15 2020 Methadone -10.00NegativeNegative ng/mL SatJul 12 19:41:15 2020 Opiates -28.00NegativeNegative n g/mL SatJul 12 19:41:15 2020 Synthetic Opiates -24.00Negative Negative ng/mL SatJul 12 19:41:15 2020 Phencyclidine 1.30NegativeNegative* ng/mL [facility] Jul 12 19:41:15 EST 2020 Cannabinoids -5.60NegativeNegative* ng/mL SatJul 12 19:41:15 2020 Tramadol 42.00NegativeNegative n g/mL Jul 12 19:41:15 2020 Tricyclics 547.00PRESUMPTIVE POS ITIVEPRESUMPTIVE POSITIVE ng/mL Jul 12 19:41:15 2020 Ecstasy (MDMA) 50.00NegativeNegativ e ng/mL [facility] Jul 12 19:41:16 EST 2020 Buprenorphine 216.190Positive - ConsistentPOSITIVE ng/mL [facility] Jul 13 11:17:06 2020 Norbuprenorphine 476.890Positive - ConsistentPOSITIVE ng/mL [facility] Jul 13 11:17:06 EST 2020 Naloxone 629.130Positive - Incon sistentPOSITIVE ng/mL [facility] Jul 13 11:17:06 2020 Norfentanyl 0.610NegativeNegative * ng/mL [facility] Jul 13 11:17:06 2020 Fentanyl 0.040NegativeNegative n g/mL [facility] Jul 13 11:17:06 2020 Carfentanil 0.040NegativeNegative * ng/mL [facility] Jul 13 11:17:06 2020 Norcarfentanil 0.190NegativeNegativ e ng/mL [facility] Jul 13 11:17:06 2020 Sufentanil 0.080NegativeNegative ng/mL [facility] Jul 13 11:17:06 2020 Desmethyldoxepin 0.000Negative *Negative ng/mL [facility] Jul 13 11:17:06 2020 Doxepin 0.000NegativeNegative ng /mL SatJul 13 11:17:06 2020 Imipramine 3.450NegativeNegative ng/mL Satb 11:17:06 2020 Nortriptyline 6.610NegativeNegative ng/mL Satb 11:17:06 2020 Amitriptyline 4.260NegativeNegative ng/mL SatJul 13 11:17:06 2020 Clomipramine 12.060NegativeNegative ng/mL Satb 11:17:06 2020 Desipramine 7.260NegativeNegative * ng/mL SatJul 13 11:17:06 2020 Aripiprazole 0.000NegativeNegative* ng/mL SatJul 13 10:13:02 2020 Chlorpromazine 0.160NegativeNegativ e ng/mL SatJul 13 10:13:02 2020 Clozapine 0.020NegativeNegative ng/mL SatJul 13 10:13:02 2020 Fluphenazine 0.090NegativeNegative* ng/mL SatJul 13 10:13:03 2020 Haloperidol 0.040NegativeNegative * ng/mL SatJul 13 10:13:03 2020 Lurasidone 0.280NegativeNegative ng/mL SatJul 13 10:13:03 2020 Olanzapine 0.140NegativeNegative ng/mL Satb 10:13:03 2020 Promethazine 0.020NegativeNegative* ng/mL Satb 10:13:03 2020 Quetiapine 50Positive - Consiste ntPOSITIVE> ng/mL Satb 10:13:03 EST 2020 Risperidone 0.000NegativeNegative * ng/mL Satb 10:13:03 2020 Trifluoperazine 0.230Negative Negative ng/mL [facility] Jul 13 10:13:03 2020 Ziprasidone 0.000NegativeNegative * ng/mL [facility] Jul 13 10:13:03 2020 Bupropion 50Positive - Consisten tPOSITIVE> ng/mL [facility] Jul 13 10:13:03 2020 Hydroxybupropion 50Positive - Co nsistentPOSITIVE> ng/mL [facility] Jul 13 10:13:03 2020 Trazodone 50Positive - Consisten tPOSITIVE> ng/mL [facility] Jul 13 10:13:03 2020 mCPP 50Positive - Consistent *POSITIVE> ng/mL [facility] Jul 13 10:13:03 2020 Creatinine 221.8NORMALNORMAL [...] C onsistentPOSITIVE> ng/mL SatSep 16 16:03:52 EDT 2021 Naloxone 262.010Positive - Consi stentPOSITIVE ng/mL SatSep [...] 17 07:57:44 EDT 2020 Olanzapine 0.120NegativeNegative ng/mL SatSep 19 07:41:23 EDT 2020 Promethazine 0.050NegativeNegative* ng/mL [...] 29 12 :55:00 EDT 2020 BILIRUBIN NEGATIVE Jie Dec 29 12:55:00 EDT 2020 KETONES NEGATIVE SatDec 29 12 :55:00 EDT 2020 OCCULT BLOO 3+ Jie Dec 09 12:55:00 EDT 2020 PROTEIN 3+ Jie Dec 29 12 :55:00 EDT 2020 NITRITE POSITIVE SatDec 29 12 :55:00 EDT 2020 LEUKOCYTE E NEGATIVE SatDec 09 12:55:00 EDT 2020 WBC 6-10 /HPF SatDec 29 12:55: 00 EDT 2020 RBC 0-2 /HPF Jie Dennis 22 12:55: 00 EDT 2020 SQUAMOUS EP 10-20 /HPF Jie Dec 2 2 12:55:00 EDT 2020 TRANSITIONA DNR /HPF Jie Dec 2 2 12:55:00 EDT 2020 RENAL EPITH DNR /HPF Jie Dec 2 2 12:55:00 EDT 2020 BACTERIA MODERATE /HPF Jie Dec 2 2 12:55:00 EDT 2020 CALCIUM OXA MANY /HPF Jie Dec 2 2 12:55:00 EDT 2020 TRIPLE PHOS DNR /HPF Jie Dec 2 2 12:55:00 EDT 2020 URIC ACID C DNR /HPF Jie Dec 2 2 12:55:00 EDT 2020 AMORPHOUS S MANY /HPF Jie Dec 09 2 12:55:00 EDT 2020 CRYSTALS DNR /HPF Jie Dec 29 1 2:55:00 EDT 2020 HYALINE CLAIRE NONE SEEN /LPF Jei J 22 12:55:00 EDT 2020 GRANULAR CA DNR /LPF Jie Dec 09 2 12:55:00 EDT 2020 CASTS DNR /LPF Jie Dec 29 12:5 5:00 EDT 2020 YEAST DNR /HPF Jie Dec 29 12:5 5:00 EDT 2020 COMMENTS DNR Jie Dec 29 1 2:55:00 EDT 2020 NOTE DNR Jie Dec 29 12:55 :00 EDT 2020 E [id number] null GLUCOSE 92 mg/dL SatJan 04 11 [...] cells/uL SatJan 04 11:34:00 EDT 2020 ABSOLUTE GA DNR cells/uL SatJan 04 11:34:00 EDT 2020 [...] W/ NON-REACTIVE Sat 11:34:00 EDT 2020 E [id number] null Medications Medication Directions Start Date End Date LAMICTAL (LAMOTRIGINE) 25 MG TABLET 2 Tablet HS: At Bedtime ORAL SatJan 24 06:00:00 EDT 2020Jan 25 12:55 :00 EDT 2020 Minipress 1 MG CAP Take one (1) cap robert by mouth daily SatJan 24 00:00:00 EDT 2020Jan 24 00:00 :00 EDT 2020 Wellbutrin XL 150 MG T24 Take one ( 1) tablet by mouth daily SatJan 24 00:00:00 ED2020Jan 24 00:00 :00 ED2020 traZODone hydrochloride 150 MG TAB Take one (1) tablet by mouth at bedtime SatJan 24 00:00:00 ED2020Jan 24:00:00 2020 Topamax 25 MG CAP Take one (1) caps ule by mouth twice a day SatJan 24 00:00:00 2020Jan 24 00:00 :00 ED2020 Vistaril 25 MG CAP Take one (1) cap robert by mouth three times a day, as needed for anxiety SatJan 24 00:00:00 2020Jan 24:00:00 2020 SEROquel 25 MG TAB Take one (1) tab let by mouth three times a day SatJan 24 00:00:00 2020Jan 24 00:00 :00 ED2020 Minipress 1 MG CAP Take one (1) cap robert by mouth daily SatJan 24 00:00:00 ED2020 Wed Sep 15 00:00 :00 ED2020 Wellbutrin XL 150 MG T24 Take one ( 1) tablet by mouth daily SatJan 24 00:00:00 2020 Wed Sep 15 00:00 :00 ED2020 traZODone hydrochloride 150 MG TAB Take one (1) tablet by mouth at bedtime SatJan 24 00:00:00 2020 Wed Sep 15 00:00:00 ED2020 Topamax 25 MG CAP Take one (1) caps ule by mouth twice a day SatJan 24 00:00:00 2020 Wed Sep 15 00:00 :00 ED2020 Vistaril 25 MG CAP Take one (1) cap robert by mouth three times a day, as needed for anxiety SatJan 24:00:00 2020 Wed Sep 15 00:00:00 ED2020 SEROquel 25 MG TAB Take one (1) tab let by mouth three times a day SatJan 24 00:00:00 2020 Wed Sep 15 00:00 :00 ED2020 Minipress 1 MG CAP Take one (1) cap robert by mouth daily SatJan 24 00:00:00 EDT 2020Jan 24 00:00 :00 EDT 2020 SEROquel 100 MG TAB Take one (1) ta blet by mouth at bedtime SatJan 24 00:00:00 EDT 2020Feb 22 00:00 :00 EDT 2020 Wellbutrin XL 150 [...] SOLUTION 296 Milliliter Daily As Needed ORAL Sun Aug 15 19:06:00 EDT 2020Jan 25 12:55:00 EDT 2020 MAGNESIUM CITRATE 1.75 GM/30 ML SOLUTION 296 Milliliter Daily As Needed ORAL SatJan 21 08:00:00 EDT 2020 Sun Jan 22 07:59:00 EDT 2020 SENNA 8.6 MG TABLET 1 Tablet BIDPRN : Twice A Day As Needed ORAL SatJan 20 06:00:00 EDT 2020Jan 25 12:55 :00 EDT 2020 SUBOXONE (BUPRENORPHINE-NALOXONE) 4MG-1MG F ILM 1 Film TID: Three Times a Day SUBLINGUAL SatJan 20 06:00:00 EDT 2020Jan 25 12:55:00 EDT 2020 MAGNESIUM [...] Twice a Day SUBLINGUAL SatDec 30 06:00:00 ED2020Jan 06 05:59:00 ED2020 BACTRIM DS (SULFAMETHOXAZOLE-T RIMETHOPRIM) 800MG-160MG TABLET 1 Tablet BID: Twice a Day ORAL SatDec 30 06:00:00 ED2020Jan 04 05:59:00 ED2020 STIMATE (DESMOPRESSIN ACETATE) 0.15 MG/1 ACT UATION SPRAY 1 [place] BIDPRN: Twice A Day As Needed NASAL (To be given immediately when she has nosebleeds) SatDec 30 06:00:00 EDT 2020Jan 25 12:55 :00 EDT 2020 ROPINIROLE HCL 0.25 MG TABLET 1 Tab let TID: Three Times a Day ORAL SatDec 30:00:00 ED2020Jan 18 13:29 :00 EDT 2020 QUETIAPINE FUMARATE 25 MG TABLET 1 Tablet TID: Three Times a Day ORAL SatDec 30:00:00 ED2020Jan 25 12:55 :00 EDT 2020 SEROQUEL (QUETIAPINE FUMARATE) 100 MG TABLET 1 Tablet HS: At Bedtime ORAL (Takes with 25mg of Seroquel) SatDec 30 06:00:00 ED2020Jan 25 12:55:00 EDT 2020 SINGULAIR (MONTELUKAST SODIUM) 10 MG TABLET 1 Tablet Daily ORAL SatDec 30 06:00:00 ED2020Jan 25 12:55 :00 EDT 2020 VENLAFAXINE HCL 37.5 MG CAPSULE, EXTENDED RE LEASE 1 Capsule Daily ORAL SatDec 30 06:00:00 EDT 2020Jan 25 12:55 :00 EDT 2020 MIRALAX (POLYETHYLENE GLYCOL 3 350) 17 GM/1 DOSE POWDER FOR SOLUTION 17 gm Daily As Needed ORAL SatDec 30:00:00 ED2020Jan 25 12:55:00 EDT 2020 CLONIDINE HCL 0.1 MG TABLET 1 Table t TID: Three Times a Day ORAL (MDD 1mg. See clonidine 0.2mg) SatDec 30 06:00:00 EDT 2020 16 10:43:00 EDT 2020 HYDROXYZINE HCL 25 MG TABLET 1 Tabl et TID: Three Times a Day ORAL SatDec 30 06:00:00 EDT 2020Jan 23 10:43 :00 EDT 2020 LAMICTAL (LAMOTRIGINE) 25 MG TABLET 2 Tablet HS: At Bedtime ORAL SatDec 30 06:00:00 EDT 2020Jan 24 09:16 :00 EDT 2020 LAMICTAL (LAMOTRIGINE) 25 MG [...] 2020 FIBER-LAX 625 MG TABLET 2 tablet GA N: As Needed ORAL (MDD 4 Tabs) [...] HS: At Bedtime ORAL SatDec 28 16:06:00 ED2020Jan 25 12:55 :00 EDT 2020 WELLBUTRIN XL [...] as needed SatDec 09 00:00:00 EDT 2020Jan 24 00:00:00 EDT 2020 Minipress 1 MG CAP Take one (1) cap robert by mouth daily SatDec 09 00:00:00 2020Jan 24:00 :00 ED2020 SEROquel 100 MG TAB Take one (1) ta blet by mouth at bedtime SatDec 09 00:00:00 ED2020Jan 07 00:00 :00 EDT 2020 Wellbutrin XL 150 MG T24 Take one ( 1) tablet by mouth daily SatDec 09 00:00:00 EDT 2020Jan 24:00 :00 EDT 2020 traZODone hydrochloride 150 MG TAB Take one (1) tablet by mouth at bedtime SatDec 09 00:00:00 2020Jan 24:00:00 2020 Topamax 25 MG CAP Take one (1) caps ule by mouth twice a day SatDec 09 00:00:00 ED2020Jan 24:00 :00 EDT 2020 Vistaril 25 MG CAP Take one (1) cap robert by mouth three times a day, as needed for anxiety SatDec 09 00:00:00 EDT 2020Jan 24 00:00:00 ED2020 SEROquel 25 MG TAB Take one (1) tab let by mouth three times a day SatDec 09 00:00:00 ED2020Jan 24 00:00 :00 2020 Effexor XR 37.5 MG CER Take one (1) capsule by mouth every morning SatDec 09 00:00:00 2020Jan 07 00:00 :00 2020 Minipress 5 MG CAP Take one (1) cap robert by mouth at bedtime SatDec 09 00:00:00 2020Jan 24 00:00 :00 2020 cloNIDine HCl 0.1 MG TAB Take one ( 1) tablet by mouth three times a day, as needed SatDec 09:00:00 2020Jan 24:00:00 2020 Minipress 5 MG CAP [...] three times a day SatOctober 10 00:00:00 ED2020Nov 08 00:00 :00 2020 Effexor XR 37.5 MG CER Take one (1) capsule by mouth every morning SatOctober 10 00:00:00 ED2020Nov 08 00:00 :00 2020 cloNIDine HCl 0.1 MG TAB Take one ( 1) tablet by mouth three times a day, as needed SatOctober 10 00:00:00 2020Dec 08 00:00:00 ED2020 Minipress 1 MG CAP Take one (1) cap robert by mouth daily SatOctober 10 00:00:00 ED2020Dec 08 00:00 :00 ED2020 SEROquel 100 MG TAB Take one (1) ta blet by mouth at bedtime SatOctober 10 00:00:00 EDT 2020Nov 08 00:00 :00 ED2020 Wellbutrin XL 150 MG T24 Take one ( 1) tablet by mouth daily SatOctober 10 00:00:00 ED2020Dec 08 00:00 :00 EDT 2020 traZODone hydrochloride 150 MG TAB Take one (1) tablet by mouth at bedtime SatOctober 10 00:00:00 ED2020Dec 08 00:00:00 ED2020 Topamax 25 MG CAP Take one (1) caps ule by mouth twice a day SatOctober 10 00:00:00 ED2020Dec 08 00:00 :00 ED2020 Vistaril 25 MG CAP Take one (1) cap robert by mouth three times a day, as needed for anxiety SatOctober 10 00:00:00 ED2020Dec 08 00:00:00 ED2020 SEROquel 25 MG TAB Take one (1) tab let by mouth three times a day SatOctober 10 00:00:00 ED2020Dec 08 00:00 :00 ED2020 Minipress 5 MG CAP Take one (1) cap robert by mouth at bedtime SatOctober 10 00:00:00 ED2020Dec 08 00:00 :00 ED2020 SEROquel 100 MG TAB Take one (1) ta blet by mouth at bedtime SatSep 09 00:00:00 EDT 2020October 08 00:00 :00 ED[address] [...] a day, as needed for anxiety SatAug 09:00:00 EST 2020Oct 07 00:00:00 EDT 2020 SEROquel [...] three times a day SatJul 11 00:00:00 2020Jul 11 00:00 :00 EST [address] one (1) bran m under the tongue three times a day SatJul 11 00:00:00 2020Jul 11 00:00 :00 EST [address] one (1) bran m under the tongue three times a day SatJul 11 00:00:00 2020Aug 09 00:00 :00 EST 2020 Topamax 25 MG CAP Take one (1) caps ule by mouth twice a day SatJun 27 00:00:00 2020Aug 09 00:00 :00 EST [address] one (1) bran m under the tongue three times a day SatJun 13 00:00:00 2020Jul 03 00:00 :00 2020 traZODone hydrochloride 150 MG TAB Take one (1) tablet by mouth at bedtime SatJun 13 00:00:00 2020Aug 09 00:00:00 EST 2020 Buprenorphine-Naloxone 0.0 BRAN Aaron ce one (1) film under the tongue three times a day SatMay 30 00:00:00 2019May 30 00:00:00 2019 Buprenorphine-Naloxone 0.0 BRAN [...] SatMay 30 00:00:00 2019Jun 13 00:00 :00 EST 2020 cloNIDine HCl 0.1 MG TAB Take one ( 1) tablet by mouth three times a day, as needed SatMay 30 00:00:00 2019Jul 28 00:00:00 EST 2020 Minipress 1 MG CAP Take one (1) cap robert by mouth daily SatMay 30 00:00:00 2019Jul 28 00:00 :00 EST 2020 traZODone hydrochloride 100 MG TAB Take one (1) tablet by mouth at bedtime SatMay 30 00:00:00 2019Jun 13 00:00:00 2020 Wellbutrin XL 150 MG T24 Take one ( 1) tablet by mouth daily SatMay 30 00:00:00 2019Jul 28 00:00 :00 2020 Vistaril 25 MG CAP Take one (1) cap robert by mouth three times a day, as needed for anxiety SatMay 30:00:00 2019Jul 28 00:00:00 2020 SEROquel 25 MG TAB Take one (1) tab let by mouth three times a day SatMay 30 00:00:00 2019Jul 28 00:00 :00 2020 lamoTRIgine 25 MG TAB Take two (2) tablets by mouth at bedtime SatMay 30 00:00:00 2019Jul 28 00:00 :00 2020 Buprenorphine-Naloxone 0.0 BRAN Aaron ce one (1) film under the tongue three times a day SatMay 17:00:00 2019May 30 00:00:00 EST 2019 cloNIDine HCl 0.1 MG TAB Take one ( 1) tablet by mouth three times a day, as needed SatMay 17 00:00:00 EST 2019May 30 00:00:00 EST 2020 Minipress 1 MG CAP Take one (1) cap robert by mouth daily SatMay 17 00:00:00 EST 2019May 30 00:00 :00 EST 2020 traZODone hydrochloride 100 MG TAB Take one (1) tablet by mouth at bedtime SatMay 17 00:00:00 EST 2019May 30 00:00:00 EST 2020 Wellbutrin XL 150 MG T24 Take one ( 1) tablet by mouth daily SatMay 17 00:00:00 EST 2019May 30 00:00 :00 EST 2020 Vistaril 25 MG CAP Take one (1) cap robert by mouth three times a day, as needed for anxiety SatMay 17 00:00:00 EST 2019May 30 00:00:00 EST 2020 SEROquel 25 MG TAB Take one (1) tab let by mouth three times a day SatMay 17:00:00 EST 2019May 30 00:00 :00 EST 2020 lamoTRIgine 25 MG TAB Take two (2) tablets by mouth at bedtime SatMay 17:00:00 2019May 30 00:00 :00 2019 Minipress 5 MG CAP [...] 2019Apr 25 00:00:00 2019 DDAVP 0.0 SPR [place] two (2) sprays in nostril(s) daily SatApr 12 00:00:00 2019Sep 09 00:00 :00 EDT 2020 cloNIDine HCl 0.1 MG TAB Take one ( 1) tablet by mouth three times a day, as needed SatApr 12 00:00:00 2019May 11:00:00 2019 rOPINIRole HCl 0.25 MG TAB Take one (1) tablet by mouth three times a day SatApr 12 00:00:00 2019Sep 09 00:00 :00 EDT 2020 Esomeprazole [...] 12 00:00:00 2019Sep 09 00:00 :00 ED2020 traZODone hydrochloride 100 MG TAB Take one (1) tablet by mouth at bedtime SatApr 12 00:00:00 2019May 11 00:00:00 2019 Vistaril 25 MG CAP Take one (1) cap robert by mouth three times a day, as needed for anxiety SatApr 12 00:00:00 2019May 11 00:00:00 2019 SEROquel 25 MG TAB Take one (1) tab let by mouth three times a day SatApr 12 00:00:00 2019May 11 00:00 :2019 lamoTRIgine 25 MG TAB Take two (2) tablets by mouth at bedtime SatApr 12:00:2019May 11 00:00 :00 2019 Albuterol Sulfate HFA 0.0 ANGELICA Inha le two (2) puffs into the lungs twice a day, as needed SatApr 12 00:00:00 2019Sep 09 00:00:00 EDT 2020 Minipress 1 MG CAP [...] 10 00:00 :00 2020 Narcan 0.0 SPR [place] one (1) spray in nostril(s) daily SatApr 12 00:00:00 2019Sep 09 00:00 :00 EDT 2020 Minipress 5 [...] 00:00:00 2019Sep 09 00:00 :00 EDT [address] one (1) bran m under the tongue daily SatApr 07 00:00:00 2019Apr 12 00:00 :00 2019 ZyPREXA 10 MG TAB Take one (1) tabl et by mouth twice a day SatApr 07 00:00:00 2019Sep 09:00 :00 2020 ZyPREXA 10 MG TAB Take one (1) tabl et by mouth twice a day SatApr 07 00:00:2019Sep 09 00:00 :00 [address] one (1) bran m under the tongue daily SatApr 05 00:00:00 2019Apr 07 00:00 :00 2019 Singulair 10 MG TAB Take one (1) ta blet by mouth daily SatApr 05 00:00:00 2019Apr 12 00:00 :00 [address] one (1) bran m under the tongue daily SatFeb 02 00:00:00 2019Feb 08:00 :00 [address] one [...] twice a day SatNov 10 00:00:00 2019Dec 09:00 :00 2019 Minipress 5 MG CAP Take [...] 03 00:00 :00 2019 Narcan 0.0 SPR [place] one (1) spray in nostril(s) daily SatNovember [...] 2019Sep 09 00:00:00 2020 DDAVP 0.0 SPR [place] two (2) sprays in nostril(s) daily SatApr [...] 09 00:00 :00 2020 Narcan 0.0 SPR [place] one (1) spray in nostril(s) daily SatApr [...] SatAug 05 00:00:00 2019Sep 02 00:00 :00 EDT 2019 SEROquel 100 MG TAB Take one (1) ta blet by mouth twice a day SatAug 05 00:00:00 2019Sep 02 00:00 :00 EDT 2019 lamoTRIgine 25 MG TAB Take one (1) tablet by mouth twice a day SatAug 05 00:00:00 2019Sep 02 00:00 :00 EDT 2019 traZODone hydrochloride 50 MG TAB T deb one (1) tablet by mouth at bedtime SatAug 05 00:00:00 2019Aug 26 00:00:00 EDT 2019 Prazosin HCl 1 MG CAP Take three (3 ) capsules by mouth at bedtime SatAug 05 00:00:00 2019Aug 13 00:00 :00 2019 Wellbutrin XL 150 MG T24 Take one ( 1) tablet by mouth daily SatAug 05 00:00:00 2019Sep 02 00:00 :00 EDT 2019 Topamax 25 MG CAP Take one (1) caps ule by mouth twice a day SatAug 05 00:00:00 2019Sep 15 00:00 :00 EDT [address] one (1) bran m under the tongue twice a day SatAug 05 00:00:00 2019Aug 17 00:00 :00 EDT 2020 METRONIDAZOLE 500 MG TABLET SatJul 31 08:00:00 EST 2019Aug 09 07:59:00 EST 2020 QUETIAPINE FUMARATE 100 MG TABLET Fri Feb 08:00:00 EST 2019 Fri Mar 08:59:00 EDT 2020 SUBOXONE (BUPRENORPHINE-NALOXONE) 8MG-2MG FILM Sat Feb 08:00:00 EST 2020 Fri Feb 07:59:00 EST 2020 LAMOTRIGINE 25 MG TABLET Fri Feb 08:00:00 EST 2019 Fri Mar 08:59:00 EDT 2020 QUETIAPINE FUMARATE 100 MG TABLET Fri Feb 08:00:00 EST 2019 Fri Mar 08:59:00 EDT 2020 QUETIAPINE FUMARATE 50 MG TABLET, EXTENDED RELEASE Jie Feb 22:58:00 EST 2019Aug 26 23:57:00 EDT 2020 SUBOXONE (BUPRENORPHINE-NALOXONE) 8MG-2MG FILM [...] QUETIAPINE FUMARATE 50 MG TABLET, EXTENDED RELEASE Satb 11 21:00:00 2019 10 21:59:00 EDT 2019 LAMOTRIGINE 25 MG TABLET Wed Feb 12 08:00:00 2019 Wed Mar 11 08:59:00 EDT 2019 PRAZOSIN HCL 2 MG CAPSULE e Feb 21:00:00 2019 Mar 10 21:59:00 EDT 2019 SUBOXONE (BUPRENORPHINE-NALOXONE) 8MG-2MG FILM Mon Feb 10 23:24:00 2019 Jie Feb 20 23:23:00 EST 2020 TRAZODONE HYDROCHLORIDE 50 MG TABLET Mon Feb 10 23:24:00 2019Aug 17 00:23:00 EDT 2020 NARCAN (NALOXONE HCL) 4 MG/0.1 ML SPRAY Mon Feb 10 23:24:00 2019 Mon Feb 24 23:23:00 EST 2019 VENTOLIN HFA (ALBUTEROL SULFAT E) 0.09 MG/1 ACTUATION SUSPENSION Mon Feb 10 23:24:00 2019 e Aug 17 00:23:00 EDT 2019 NARCAN (NALOXONE HCL) 4 MG/0.1 ML SPRAY Mon Feb 10 23:24:00 EST 2019 Mon Feb 24 23:23:00 EST 2019 PEPCID (FAMOTIDINE) 40 MG TABLET Mon Feb 10 23:24:00 2019Aug 17 00:23:00 EDT 2019 ORAJEL MOUTH SORE MEDICINE (BE NZALKONIUM CHLORIDE-BENZOCAINE/ZINC CHLORIDE) 0.02%-20%-0.1% GEL/JELLY Mon Feb 1 0 23:24:00 2019 10 00:23:00 EDT 2020 MYLANTA (ALUMINUM HYDROXIDE-MA GNESIUM HYDROXIDE-SIMETHICONE) 200MG/5 ML-200MG/5 ML-20MG/5 ML SUSPENSION Mon Feb 10 23:24:00 2019 10 00:23:00 EDT 2020 MULTIVITAMIN TABLET Mon Feb 10 23:24:00 2019 10 00:23:00 EDT 2020 MELATONIN 5 MG CAPSULE Mon Feb 10 23:24:00 2019 10 00:23:00 EDT 2020 ICY HOT (MENTHOL-METHYL SALICYLATE) 10%-30% CREAM Mon Feb 10 23:24:2019 10 00:23:00 EDT 2019 FIBER-LAX 625 MG TABLET Mon Feb 10 ::2019 10 00:23:00 EDT 2019 CLARITIN (LORATADINE) 10 MG TABLET Mon Feb 10 ::2019 10 00:23:00 EDT 2019 BENADRYL ALLERGY (DIPHENHYDRAM INE HYDROCHLORIDE) 25 MG TABLET Mon Feb 10 ::2019 e Aug 10 00:23:00 EDT 2019 TUMS (CALCIUM CARBONATE) 500 MG TABLET, CHEWABLE Mon Feb 10 ::00 2019 10 00:23:00 EDT 2019 GAS-X (SIMETHICONE) 80 MG TABLET, CHEWABLE Mon Feb 10 ::00 2019 10 00:23:00 EDT 2019 ACETAMINOPHEN (TYLENOL) 500 MG TABLET Mon Feb 10 ::2019Aug 17 00:23:00 EDT 2019 NICOTINE POLACRILEX 4 MG LOZENGE/BERTHA Mon Feb 10 :24:2019 Mon Feb 24 23::00 EST 2019 MONTELUKAST SODIUM 10 MG TABLET Mon Feb 10 ::2019 10 00:23:00 EDT 2020 ADVAIR DISKUS 250/50 (FLUTICAS ONE PROPIONATE-SALMETEROL XINAFOATE) 0.25MG/1 ACTUATION-0.05MG/1 ACTUATION DISK Mo n Feb 10 :24:2019 10 00:23:00 EDT 2020 HYDROXYZINE HCL 25 MG TABLET Mon Feb 10 :24:00 EST 2020 Sat Feb 15 :23:00 EST 2020 ZOFRAN (ONDANSETRON) 4 MG TABLET, DISINTEGRATING Mon Feb 10 :24:00 EST 2020 Sat Feb 15 ::00 EST 2020 CATAPRES (CLONIDINE HYDROCHLORIDE) 0.1 MG TABLET Mon Feb 10 :24:00 EST 2020 Sat Feb 15 23:23:00 EST 2020 XOPENEX (LEVALBUTEROL HYDROCHLORIDE) 1.25 MG /3 ML SOLUTION Mon Feb 10 :24:00 2019e Aug 10 00:23 :00 EDT 2019 TRIPLE ANTIBIOTIC OINTMENT 40 0UNITS/1GM-3.5MG/1GM-5000UNITS/1GM OINTMENT SatJul 20:24:00 2019Aug 17 00:23:00 ED2019 PEPTO-BISMOL (BISMUTH SUBSALICYLATE) 262 MG/ 15 ML SUSPENSION SatJul 20 23:24:00 2019Aug 17 00:23 :00 ED2019 MILK OF MAGNESIA 400 MG/5 ML SOLUTION SatJul 20::00 2019Aug 17 00:23:00 ED2019 GUAIFENESIN 600 MG TABLET, EXTENDED RELEASE SatJul 20::00 2019Aug 17 00:23:00 ED2019 COLACE (DOCUSATE SODIUM) 100 MG CAPSULE, LIQ UID FILLED SatJul 20:24:00 2019Aug 17 00:23 :00 ED2019 BENADRYL ALLERGY (DIPHENHYDRAM INE HYDROCHLORIDE) 25 MG TABLET SatJul 20::00 2019Aug 17 00:23:00 ED2019 EUCERIN DAILY PROTECTION (LOTI ON, MULTI INGREDIENT) 2%-7.5%-4.5%-2.4%-4.8% LOTION SatJul 20 23:2 4:00 2019Aug 17 00:23:00 2019 EUCERIN DAILY PROTECTION (LOTI ON, MULTI INGREDIENT) 2%-7.5%-4.5%-2.4%-4.8% LOTION SatJul 19 10:0 5:00 2019Aug 15 11:04:00 ED2019 TRAZODONE HYDROCHLORIDE 50 MG TABLET SatJul 19 10:03:00 2019Aug 15 11:02:00 ED2019 ACETAMINOPHEN (TYLENOL) 500 MG TABLET SatJul 19 04:55:00 2019Aug 15 05:54:00 ED2019 GAS-X (SIMETHICONE) 80 MG TABLET, CHEWABLE Sat Jul 18 15:55:00 2019Aug 14 15:54:00 2019 TUMS (CALCIUM CARBONATE) 500 MG TABLET, CHEWABLE SatJul 18 15:55:00 2019Aug 14 15:54:00 2019 BENADRYL ALLERGY (DIPHENHYDRAM INE HYDROCHLORIDE) 25 MG TABLET Sat Feb 08 15:55:00 EST 2020 Aug 14 15:54:00 EST 2020 BENADRYL ALLERGY (DIPHENHYDRAM INE HYDROCHLORIDE) 25 MG TABLET Sat Feb 08 15:55:00 EST 2019 [facility] Aug 14 15:54:00 EST 2020 CLARITIN (LORATADINE) 10 MG TABLET Sat Feb 08 15:55:00 EST 2019Aug 14 15:54:00 EST 2020 COLACE (DOCUSATE SODIUM) [...] OINTMENT Sat Feb 08 15:55:00 EST 2020 t Aug 07 15:54:00 EST 2020 XOPENEX (LEVALBUTEROL HYDROCHLORIDE) 1.25 MG /3 ML SOLUTION Sat Feb 08 15:55:00 EST 2020 Sat Mar 07 15:54 :00 EST 2020 NARCAN (NALOXONE HCL) [...] PROPIONATE-SALMETEROL XINAFOATE) 0.25MG/1 ACTUATION-0.05MG/1 ACTUATION DISK t Feb 08 15:55:00 EST 2019 Sat Aug 14 15:54:00 EST 2020 VENTOLIN HFA (ALBUTEROL SULFAT E) 0.09 MG/1 ACTUATION SUSPENSION Sat Feb 08 15:55:00 EST 2020 t Aug 14 15:54:00 EST 2020 SUBOXONE (BUPRENORPHINE-NALOXONE) 8MG-2MG FILM [...] EST 2020 MONTELUKAST SODIUM 10 MG TABLET Satb 08:00:00 EST 2019Aug 11 07:59:00 EST 2020 NARCAN (NALOXONE HCL) 4 MG/0.1 ML SPRAY Satb 08:00:00 EST 2020 Wed Feb 07:59:00 EST 2020 SUBOXONE (BUPRENORPHINE-NALOXONE) 8MG-2MG FILM Jie Feb 06 08:00:00 EST 2020 Sun Feb 16 07:59:00 EST 2020 SUBOXONE (BUPRENORPHINE-NALOXONE) 4MG-1MG FILM Sat Feb 08:00:00 EST 2020 Jie Feb 06 07:59:00 EST 2020 VENTOLIN HFA (ALBUTEROL SULFAT E) 0.09 MG/1 ACTUATION SUSPENSION SatJul 15 08:00:00 2019 d Aug 11 07:59:00 EST 2020 ADVAIR DISKUS 250/50 (FLUTICAS ONE PROPIONATE-SALMETEROL XINAFOATE) 0.25MG/1 ACTUATION-0.05MG/1 ACTUATION DISK We Jul 15 08:00:00 EST 2019Aug 11 07:59:00 EST 2020 HYDROXYZINE HCL 25 MG TABLET SatJul 15 12:24:00 EST 2020 Mon Feb 10 12:23:00 EST 2020 ZOFRAN (ONDANSETRON) 4 MG TABLET, DISINTEGRATING SatJul 15 12:24:00 EST 2020 Mon Feb 10 12:23:00 EST 2020 CATAPRES (CLONIDINE HYDROCHLORIDE) 0.1 MG TABLET SatJul 15 12:24:00 2020 Mon Feb 10 12:23:00 EST 2020 NARCAN (NALOXONE HCL) 4 MG/0.1 ML SPRAY SatJul 15 12:24:00 EST 2020 Wed Feb 12:23:00 EST 2020 XOPENEX (LEVALBUTEROL HYDROCHLORIDE) 1.25 MG /3 ML SOLUTION Satb 12:24:00 2019Aug 11 12:23 :00 EST 2020 TRIPLE ANTIBIOTIC OINTMENT 40 0UNITS/1GM-3.5MG/1GM-5000UNITS/1GM OINTMENT Satb 12:24:00 EST 2020 We d Aug 11 12:23:00 EST 2020 PEPCID (FAMOTIDINE) 40 MG TABLET Satb 12:24:00 2019Aug 11 12:23:00 EST 2020 PEPTO-BISMOL (BISMUTH SUBSALICYLATE) 262 MG/ [...] 15 12:24:00 2019Aug 11 12:23:00 EST 2020 MILK OF MAGNESIA 400 MG/5 ML SOLUTION SatJul 15 12:24:00 2019Aug 11 12:23:00 EST 2020 MELATONIN 5 MG CAPSULE SatJul 15 12:24:00 2019Aug 11 12:23:00 EST 2020 IMODIUM A-D (LOPERAMIDE HYDROC HLORIDE) 2 MG CAPSULE, LIQUID FILLED SatJul 15 12:24:00 EST 2019 We Aug 11 12:23:00 EST 2020 IBUPROFEN 200 MG TABLET SatJul 15 12:24:00 2019Aug 11 12:23:00 EST 2020 ICY HOT (MENTHOL-METHYL SALICYLATE) 10%-30% CREAM SatJul 15 12:24:00 2019Aug 11 12:23:00 EST 2020 GUAIFENESIN 600 MG TABLET, EXTENDED RELEASE SatJul 15 12:24:00 2019Aug 11 12:23:00 EST 2020 FIBER-LAX 625 MG TABLET SatJul 15 12:24:00 EST 2019Aug 11 12:23:00 EST 2020 COLACE (DOCUSATE SODIUM) 100 MG CAPSULE, LIQ UID FILLED SatJul 15 12:24:00 2019Aug 11 12:23 :00 EST 2020 CLARITIN (LORATADINE) 10 MG TABLET SatJul 15 12:24:00 EST 2019Aug 11 12:23:00 EST 2020 BENADRYL ALLERGY (DIPHENHYDRAM INE HYDROCHLORIDE) 25 MG TABLET SatJul 15:24:2019Aug 11 12:23:00 2019 BENADRYL ALLERGY (DIPHENHYDRAM INE HYDROCHLORIDE) 25 MG TABLET SatJul 15:24:2019Aug 11 12:23:00 2019 TUMS (CALCIUM CARBONATE) 500 MG TABLET, CHEWABLE SatJul 15 12:24:00 2019Aug 11 12:23:00 2019 GAS-X (SIMETHICONE) 80 MG TABLET, CHEWABLE SatJul 15:24:2019Aug 11 12:23:00 2019 ACETAMINOPHEN 500 MG CAPSULE SatJul 15 12:24:00 2019Aug 11 12:23:00 2019 NICODERM CQ (NICOTINE) 14 MG/24 HR PATCH, EX TENDED RELEASE SatJun 26 08:04:00 2019Jul 03 08:03 :00 2019 HYDROXYZINE HCL 25 MG TABLET SatJun 26 08:04:00 2019Jul 01 08:03:00 2019 ZOFRAN (ONDANSETRON) 4 MG TABLET, DISINTEGRATING SatJun 26 08:04:00 2019Jul 01 08:03:00 2019 CATAPRES (CLONIDINE HYDROCHLORIDE) 0.1 MG TABLET SatJun 26 08:04:00 2019Jul 01 08:03:00 2019 NARCAN (NALOXONE HCL) 4 MG/0.1 ML SPRAY SatJun 26 08:04:00 2019Jul 10 08:03:00 2019 XOPENEX (LEVALBUTEROL HYDROCHLORIDE) 1.25 MG /3 ML SOLUTION SatJun 26 08:04:00 2019 Fri Jul 24 08:03 :00 2019 TRIPLE ANTIBIOTIC OINTMENT 40 0UNITS/1GM-3.5MG/1GM-5000UNITS/1GM OINTMENT SatJun 26 08:04:00 2019 Fr i Feb 14 08:03:00 2020 PEPCID (FAMOTIDINE) 40 MG TABLET SatJun 26 08:04:00 2019 Fri Jul 24 08:03:00 EST 2020 PEPTO-BISMOL (BISMUTH SUBSALICYLATE) 262 MG/ 15 ML SUSPENSION SatJun 26 08:04:00 2019 Fri Fe 08:03 :00 EST 2020 ORAJEL MOUTH SORE MEDICINE (BE NZALKONIUM CHLORIDE-BENZOCAINE/ZINC CHLORIDE) 0.02%-20%-0.1% GEL/JELLY Fri Jun 10 7 08:04:00 EST 2020 Fri Feb 14 08:03:00 EST 2020 MYLANTA (ALUMINUM HYDROXIDE-MA GNESIUM HYDROXIDE-SIMETHICONE) 200MG/5 ML-200MG/5 ML-20MG/5 ML SUSPENSION SatJun 26 08:04:00 EST 2019 Fri Feb 14 08:03:00 EST 2020 MULTIVITAMIN TABLET SatJun 26 08:04:00 2019 Fri Feb 14 08:03:00 EST 2020 MILK OF MAGNESIA 400 MG/5 ML SOLUTION SatJun 26 08:04:00 2020 Fri Feb 14 08:03:00 EST 2019 MELATONIN 5 MG CAPSULE SatJun 26 08:04:00 2019 Fri Feb 14 08:03:00 EST 2020 IMODIUM A-D (LOPERAMIDE HYDROC HLORIDE) 2 MG CAPSULE, LIQUID FILLED SatJun 26 08:04:00 EST 2020 Fr i Feb 14 08:03:00 EST 2020 IBUPROFEN 200 MG TABLET SatJun 26 08:04:00 EST 2019 Fri Feb 14 08:03:00 EST 2020 ICY HOT (MENTHOL-METHYL SALICYLATE) 10%-30% CREAM SatJun 26 08:04:00 EST 2020 Fri Feb 14 08:03:00 EST 2020 GUAIFENESIN 600 MG TABLET, EXTENDED RELEASE SatJun 26 08:04:00 EST 2020 Fri Feb 14 08:03:00 EST 2020 FIBER-LAX 625 MG TABLET SatJun 26 08:04:00 EST 2020 Fri Feb 14 08:03:00 EST 2020 COLACE (DOCUSATE SODIUM) 100 MG CAPSULE, LIQ UID FILLED SatJun 26 08:04:00 EST 2020 Fri Feb 14 08:03 :00 EST 2020 CLARITIN (LORATADINE) 10 MG TABLET SatJun 26 08:04:00 EST 2020 Fri Feb 14 08:03:00 EST 2020 BENADRYL ALLERGY (DIPHENHYDRAM INE HYDROCHLORIDE) 25 MG TABLET SatJun 26 08:04:00 2019 Fr i Feb 14 08:03:00 EST 2020 BENADRYL ALLERGY (DIPHENHYDRAM INE HYDROCHLORIDE) 25 MG TABLET SatJun 26 08:04:00 EST 2019 Fr i Feb 14 08:03:00 EST 2020 TUMS (CALCIUM CARBONATE) 500 MG TABLET, CHEWABLE SatJun 26 08:04:00 EST 2020 Fri Feb 14 08:03:00 EST 2020 GAS-X (SIMETHICONE) 80 MG TABLET, CHEWABLE Fri Jun 26 08:04:00 2019 Fri Feb 14 08:03:00 EST 2020 ACETAMINOPHEN 500 MG CAPSULE Fri Jun 26 08:04:00 2019 Fri Feb 14 08:03:00 EST 2020 VALIUM (DIAZEPAM) 5 MG TABLET Sun Jun 28 08:00:00 2019Jun 29 07:59:00 EST 2020 VALIUM (DIAZEPAM) 5 MG TABLET Sat Jun 27 08:00:00 EST 2019 Sun Jun 28 07:59:00 EST 2019 VALIUM (DIAZEPAM) 5 MG TABLET Sat Jun 27 17:31:00 2019 Sun Jun 28 17:30:00 EST 2019 [...] 5 MG TABLET Fri Jun 26 08:00:00 2019Jun 29 07:59:00 EST 2019 VALIUM (DIAZEPAM) 5 MG TABLET Jie Jun 25 08:00:00 EST 2019 Fri Jun 26 07:59:00 EST 2019 SUBOXONE (BUPRENORPHINE-NALOXONE) 4MG-1MG FILM Jie Jun 25 08:00:00 2019u Jul 02 07:59:00 2019 SUBOXONE (BUPRENORPHINE-NALOXONE) 4MG-1MG FILM Jie Jun 25 08:00:00 EST 2019 Fri Jun 26 07:59:00 EST 2019 ADVAIR DISKUS 250/50 (FLUTICAS ONE PROPIONATE-SALMETEROL XINAFOATE) 0.25MG/1 ACTUATION-0.05MG/1 ACTUATION DISK u Jun 25 08:00:00 2019u Feb 13 07:59:00 2020 PROAIR HFA (ALBUTEROL SULFATE) 0.09 MG/1 ACTUATION SUSPENSION Jie Jun 25 08:00:00 2019 u Feb 13 07:59:00 2020 NICOTINE 14 MG/24 HR PATCH, EXTENDED RELEASE Jie Jun 25 08:00:00 2019 13 07:59:00 2019 Gabapentin 300 MG CAP Take two (2) capsules by mouth three times a day SatDec 22 00:00:00 2018 Jie Sep 12 00:00 :00 2018 Prazosin HCl 1 MG CAP Take one (1) capsule by mouth at bedtime SatDec 22 00:00:00 2018 [facility] Sep 12 00:00 :00 2018 traZODone hydrochloride 100 MG TAB Take one (1) or two (2) tablets by mouth at bedtime, as needed. SatDec 22 00:00:00 2018 Jie Sep 00:00:00 2018 Topamax 25 MG CAP Take one (1) caps ule by mouth twice a day SatDec 22 00:00:00 2018 [facility] Sep 00:00 :00 2018 Prazosin HCl 5 MG CAP Take one (1) capsule by mouth at bedtime SatDec 22 00:00:00 2018 [facility] Sep 00:00 :00 2018 hydrOXYzine Pamoate 50 MG CAP Take one (1) capsule by mouth twice a day, as needed SatDec 22 00:00:00 2018 [facility] Sep 00:00:00 2018 hydrOXYzine Pamoate 50 MG [...] TABLET SatSep 23 17:09:00 2018October 21 17:08:00 EDT 2018 ADVAIR DISKUS 250/50 (FLUTICAS ONE PROPIONATE-SALMETEROL XINAFOATE) 0.25MG/1 ACTUATION-0.05MG/1 ACTUATION DISK Sep 23 09:00:00 EDT 2018October 21 08:59:00 EDT 2018 SUBOXONE (BUPRENORPHINE-NALOXONE) 12MG-3MG FILM SatSep 23 09:00:00 EDT 2018Oct 07 08:59:00 EDT 2018 SUBOXONE (BUPRENORPHINE-NALOXONE) 12MG-3MG FILM SatSep 22 11:00:00 EDT 2018Oct 06 10:59:00 EDT 2018 NICOTINE 14 MG/24 HR PATCH, EXTENDED RELEASE SatSep 15 09:00:00 EDT 2018October 13 08:59:00 EDT 2018 TOPIRAMATE 50 [...] SatSep 12 12:04:00 EDT 2018October 10 12:03:00 ED2018 PRAZOSIN HCL 5 MG CAPSULE SatSep 12 12:02:00 EDT 2018October 10 12:01:00 EDT 2018 TOPIRAMATE 25 MG TABLET SatSep 12 12:06:00 EDT 2018October 10 12:05:00 EDT 2018 TRAZODONE HYDROCHLORIDE 100 MG TABLET SatSep 11 08:00:00 EDT 2018Sep 25 07:59:00 EDT 2018 TOPIRAMATE 25 MG TABLET SatSep 08 18:07:00 EDT 2018Sep 12 18:06:00 EDT 2018 IBUPROFEN 200 MG TABLET SatSep 08 09:00:00 EDT 2018Sep 13 08:59:00 EDT 2018 SUBOXONE (BUPRENORPHINE-NALOXONE) 12MG-3MG FILM SatSep 08 09:00:00 EDT 2018Sep 22 08:59:00 EDT 2018 PRAZOSIN HCL 1 MG CAPSULE SatSep 08 12:12:00 EDT 2018Oct 06 12:11:00 EDT 2018 DICYCLOMINE HCL 20 MG TABLET SatSep 07 15:09:00 EDT 2018 Sun Oct 05 15:08:00 EDT 2018 MIRALAX (POLYETHYLENE GLYCOL [...] EX TENDED RELEASE SatAug 30 09:00:00 EDT 2018Sep 27 08:59 :00 EDT 2018 SUBOXONE (BUPRENORPHINE-NALOXONE) 12MG-3MG FILM SatAug 29 09:00:00 EDT 2018Sep 12 08:59:00 EDT 2018 SUBOXONE (BUPRENORPHINE-NALOXONE) 12MG-3MG FILM SatAug 28 09:00:00 EDT 2018Aug 29 08:59:00 EDT 2018 HYDROXYZINE HCL 50 MG TABLET SatAug 27 22:43:00 EDT 2018Sep 24 22:42:00 EDT 2018 ABREVA (DOCOSANOL) 10 % CREAM SatAug 27 22:43:00 EDT 2018Sep 24 22:42:00 EDT 2019 ADVAIR DISKUS 250/50 (FLUTICAS ONE PROPIONATE-SALMETEROL XINAFOATE) 0.25MG/1 ACTUATION-0.05MG/1 ACTUATION DISK We Aug 27 22:42:00 EDT 2018Sep 24 22:41:00 EDT 2018 PRAZOSIN HCL 1 MG CAPSULE SatAug 27 22:41:00 EDT 2018Sep 24 22:40:00 EDT 2019 CEPHALEXIN 500 MG TABLET SatAug 27 22:40:00 EDT 2018Sep 24 22:39:00 EDT 2018 DOXYCYCLINE HYCLATE 100 MG CAPSULE SatAug 27 22:40:00 EDT 2018Sep 24 22:39:00 EDT 2019 TRAZODONE HYDROCHLORIDE 100 MG TABLET SatAug 27 22:39:00 EDT 2018Sep 24 22:38:00 EDT 2019 ALBUTEROL SULFATE 0.083 % SOLUTION SatAug 27 22:38:00 EDT 2018Sep 24 22:37:00 EDT 2019 BUPROPION HCL 150 MG TABLET, EXTENDED RELEAS E, 24 HR SatAug 27 22:37:00 EDT 2018Sep 24 22:36 :00 EDT 2019 PREDNISONE 20 MG TABLET SatAug 27 22:36:00 EDT 2018Sep 24 22:35:00 EDT 2019 ZIPRASIDONE HCL 20 MG CAPSULE SatAug 27 [...] 400UNITS/1G M-3.5MG/1GM-5000UNITS/1GM OINTMENT SatAug 27 17:41:00 EDT 2019 We Sep 24 17:40:00 EDT 2019 ZANTAC [...] 17:40:00 EDT 2019 FIBER-LAX 625 MG TABLET SatAug 27 17:41:00 [...] We d Sep 24 17:40:00 EDT 2018 TUMS (CALCIUM CARBONATE) 500 MG TABLET, CHEWABLE SatAug 27 17:41:00 EDT 2018Sep 24 17:40:00 EDT 2018 GAS-X (SIMETHICONE) 80 MG TABLET, CHEWABLE SatAug 27 17:41:00 EDT 2018Sep 24 17:40:00 EDT 2018 ACETAMINOPHEN 500 MG CAPSULE SatAug 27 17:41:00 EDT 2018Sep 24 17:40:00 EDT [address] one and one half (1.5) films under the tongue daily SatNov 18 00:00:00 EDT 2017Nov 27 00:00:00 EDT 2017 Prazosin HCl 1 MG CAP Take one (1) capsule by mouth at bedtime SatSep 19 00:00:00 EDT 2017Sep 28 00:00 :00 EDT 2017 busPIRone HCl 15 MG TAB Take one (1 ) tablet by mouth twice a day SatSep 19 00:00:00 EDT 2017Sep 28 00:00 :00 ED2017 chlorproMAZINE HCl 25 MG TAB Take o ne (1) tablet by mouth four times a day SatSep 19 00:00:00 ED2017Sep 28 00:00:00 EDT 2017 hydrOXYzine HCl 25 MG TAB Take one (1) tablet by mouth every 6 hours Jie Jul 25 00:00:00 EST 2017Aug 03 00:00 :00 EST 2017 Problems Active Concerns * Opioid abuse * Code: 8571334 * Start Date: SatJun 10 11:00:00 EST [...] USER-Legal * Start Date: SatApr 18 07:00:00 2016 * Text: * Social/Interpersonal/Recovery Environment * Code: USER-Social * Start Date: SatJan 31 08:00:00 ED2016 * Text: * Family * Code: USER-Family * Start Date: SatJan 31 08:00:00 ED2016 * Text: * Housing * Code: USER-Housing * Start Date: SatApr 18 07:00:00 2016 * Text: * Educational/Vocational * Code: USER-EducationalVoc * Start Date: SatAug 27 08:00:00 EDT 2018 * Text: * Alcohol use disorder, severe * Code: 61994796 * Start Date: SatJun 24 07:00:00 2019 * Text: * Severe nicotine withdrawal * Code: [id number] * Start Date: SatJun 24 07:00:00 2019 * Text: * Stimulant use disorder * Code: 560769820 * Start Date: SatJun 24 07:00:00 2019 * Text: * Synthetic cannabinoid dependence * Code: 974048053 * Start Date: SatJul 15 07:00:00 2019 * Text: * Opioid use disorder, severe, dependence * Code: 82681471 * Start Date: SatJul 15 07:00:00 2019 * Text: * Current every day smoker * Code: 728550916 * Start Date: SatJul 15 07:00:00 2019 * Text: * Bipolar disorder with psychotic features * Code: 74038229 * Start Date: SatSep 29 08:00:00 EDT 2019 * Text: Resolved Concerns * Problem Addiction/Abstinence/Withdrawal * Code: USER-Addiction * Start Date: SatJan 31 08:00:00 2016 * End Date: null * Problem Social/Interpersonal/Recovery Environment * Code: USER-Social * Start Date: SatJan 31 08:00:00 EDT 2016 * End Date: null * Problem Family * Code: USER-Family * Start Date: SatJan 31 08:00:00 ED2016 * End Date: null * Problem Biomedical [...] EDT 2020 Temperature 37.1 SUSANA SatOctober 08 10:30:00 EDT 2020 Heart Rate 52 /MIN SatOctober 19 10:30:00 EDT 2020 Respiration 16 /MIN SatOctober 08 10:30:00 EDT 2020 SpO2 99 % SatOctober 19 10:30 :00 EDT 2020 Systolic 118 MM[HG] SatOctober 19 0:30:00 EDT 2020 Diastolic 85 MM[HG] SatOctober [...] 144.8 cm SatApr 04 11: 09:00 EDT 2019 Weight Lbs 222 lbs SatApr 04 11:09:00 EDT 2019 Weight Kgs 100.9 KG SatApr 04 11:09:00 EDT 2019 BMI 48 SatApr 04 11:09: 00 EDT 2019 Pain Scale 3 Scale SatApr 04 11:09:00 EDT 2019 Temperature 97.4 [DEGF] Sat 24 08:56:00 EST 2020 Temperature 36.3 SUSANA Satb 2 4 08:56:00 EST 2019 Heart Rate 86 /MIN Sat 24 08:56:00 EST 2019 Systolic 123 MM[HG] Satb 24 0 8:56:00 EST 2020 Diastolic 70 MM[HG] Satb 24 08:56:00 EST 2019 Height 4 9 ft Satb 24 08: 56:00 EST 2019 Height 57 in Sat 24 08: 56:00 EST 2020 Height 144.8 [...] EST 2020 Temperature 98.1 [DEGF] Sat Jun 27 10:20:00 EST 2020 Temperature 36.7 SUSANA Sat Jun 10 8 10:20:00 EST 2020 Heart Rate 75 /MIN Sat Jun 27 10:20:00 EST 2020 Respiration 16 /MIN Sat Jun 10 8 10:20:00 EST 2020 Systolic 113 MM[HG] Sat Jun 18 1 0:20:00 EST 2020 Diastolic 77 MM[HG] Sat Jun 27 10:20:00 EST 2020 BP Position 3 Position Sat Jun 10 8 10:20:00 EST 2020 Temperature 97.1 [DEGF] Sat Jun 27 03:01:00 EST 2020 Temperature 36.2 SUSANA Sat Jun 10 8 03:01:00 EST 2020 Heart Rate 71 /MIN Sat 18 03:01:00 EST 2020 Respiration 16 /MIN Sat Jun 10 8 03:01:00 EST 2020 Systolic 114 MM[HG] Sat Luc 18 0 3:01:00 EST 2020 Diastolic 66 [...] 10:12:00 EST 2020 Heart Rate 89 /MIN Jie Luc 16 10:12:00 EST 2020 Respiration 18 /MIN SatJun [...] 6 02:48:00 EST 2020 Systolic 93 MM[HG] SatJun 25 0 2:48:00 EST 2020 Diastolic 53 MM[HG] [...] EST 2020 Systolic 128 MM[HG] SatJun 24 1 5:42:00 EST 2020 Diastolic 70 MM[HG] SatJun 24 15:42:00 EST 2020 BP Position 2 Position SatJun 10 5 15:42:00 EST 2020 Respiration 20 /MIN SatJun 10 5 10:38:00 EST 2020 Pain Scale 4 Scale SatJun 24 10:38:00 EST 2020 Temperature 97.2 [DEGF] SatJun 24 09:45:00 EST 2020 Temperature 36.2 SUSANA SatJun 10 5 09:45:00 EST 2020 Heart Rate 59 /MIN SatJun 24 09:45:00 EST 2020 Systolic 116 MM[HG] Sat 15 0 9:45:00 EST 2020 Diastolic 76 MM[HG] SatJun 24 09:45:00 EST 2020 BP Position 2 Position SatJun 10 5 09:45:00 EST 2020 Height 4 9 ft SatJun 24 09: 45:00 EST 2020 Height 57 in SatJun 24 09: 45:00 2019 Height 144.8 cm SatJun 24 09: 45:00 2019 Weight Lbs 165 lbs SatJun 24 09:45:00 2019 Weight Kgs 75 KG SatJun 24 09:45:00 2019 BMI 35.7 % SatJun 24 09:45: 00 2019 Temperature 98.0 [DEGF] [facility] Feb 07 12:39:00 EDT 2018 Temperature 36.7 SUSANA SatJan 10 12:39:00 EDT 2018 Heart Rate 69 /MIN [facility] Feb 07 12:39:00 EDT 2018 Respiration 14 /MIN [facility] Jan 10 12:39:00 EDT 2018 SpO2 98 % [facility] Feb 07 12:39 :00 EDT 2018 Systolic 100 MM[HG] [facility] Feb 07 2:39:00 EDT 2018 Diastolic 59 MM[HG] [facility] Feb 07 12:39:00 EDT 2018
--- OUTSIDE RECORDS SUMMARY | 2021-03-23 20:16 | CCD ---
Author Author AutogeneDENISHA claros Autogene rated Organization [facility] Address Unknown Phone Unavailable Care Team Providers Care Dispatch Specialist Name Role Phone Yaron Lobato AttendingPractitioner1 Peyton [...] Moore Practitioner Sneha Celeste Practitioner Quintin [facility] Admphys Zara Valdez Practitioner Samuel Pierce Practitioner Functional [...] Primary Diagnosis Admission Date/ Time Discharge Date/Time [facility] davey abinoid dependence SatDec 28 10:30:00 EDT 2020Jan 25 11:30:00 EDT 2020 [facility] SatAug 19 09:30:00 EDT 2019 [facility] SatJan 12 09:36:00 EDT [facility] Heroin use disorder, moderate, dependence SatApr 04 10:25:00 EDT 2019Jan 05 11:15:00 EDT 2020 [facility] SatJun 13 13:54:00 EST 2020Jun 27 17:13:00 EST 2020 [facility] Polysubstance abuse SatJun 24 09:10:00 EST 2019Aug 03 08:17:00 EST 2019 [facility] Heroin use disorder, severe, on maintenance therapy, dependence SatAug 20 09:30:00 EDT 2019October 14 11:29:00 EDT 2020 [facility] SatOct 01 08:57:00 EDT 2019Nov 19 13:39:00 EDT 2020 [facility] SatSep 24 12:11:00 EDT 2018 Lauren Elsy Jules Waiting SatSep 11 09:41:00 EDT 2019 [facility] Severe opioid use disorder SatJul 20 11:59:00 EST 2019Aug 01 17:29:00 EST 2019 [facility] Synthetic cannabinoid dependence SatJul 15 10:25:00 EST 2019Jul 18 14:14:00 EST 2019 [facility] SatJul 10 16:04:00 EST 2018 [facility] SatOctober 08 11:40:00 EDT 2017 [facility] Alcohol use disorder, severe SatJun 24 14:16:00 EST 2019 Sat Jun 27 13:25:00 EST 2019 [facility] Drug abuse counseling and surveillance of drug abuser SatAug 03 08:19:00 EST 2019Feb 15 08:55:00 EDT 2019 [facility] SatSep 24 13:11:00 EDT 2018Mar 02 11:08:00 EDT 2019 [facility] Jie Jan 10 11:41:00 EDT 2017 [facility] Wed J an 15 02:02:00 EST 2019 [facility] SatAug 27 14:15:00 EDT 2019 [facility] SatJan 09 10:42:00 EDT 2017 [facility] SatJan 08 10:39:00 EDT 2017 [facility] Synthetic cannabinoid dependence SatJul 18 14:16:00 EST 2019Jul 20 11:58:00 EST 2019 Immunizations No Known Immunizations Lab Results Result Type Result Value Date SYNTHETIC CANNABINOIDS, QL, (U) NEGATIVE CONFIRMED SatFeb 04 14:04:00 EDT 2018 SYNTHETIC CANNABINOIDS CONFIRM: NEGATIVE SatFeb 04 14:04:00 EDT 2019 COMMENT see note SatFeb 04 14 :04:00 EDT 2019 Amphetamines NEGATIVE ng/mL SatFeb 04 14:04:00 EDT 2018 Amphetamine DNR ng/mL Sat 2 8 14:04:00 EDT 2018 Methamphetamine DNR ng/mL Sat 14:04:00 EDT 2019 Confirmation Testing Performed at: DNR SatFeb 04 14:04:00 EDT 2019 COMMENT SatFeb 04 14 :04:00 EDT 2019 Barbiturates NEGATIVE CONFIRMED ng/mL SatFeb 04 14:04:00 EDT 2019 Amobarbital NEGATIVE ng/mL Sat ug 28 14:04:00 EDT 2019 Butalbital NEGATIVE [...] Hydroxyethylflurazepam DNR ng/mL SatFeb 04 14:04:00 EDT 2018 Lorazepam DNR ng/mL SatFeb 04 14:04:00 EDT [...] Phencyclidine NEGATIVE ng/mL SatFeb 04 14:04:00 EDT 2019 [...] ng/mL Sat Jun 27 15:16:00 EST 2019 Confirmation Testing Performed at: DNR Sat Jun 27 15:16:00 EST 2019 COMMENT Sat Jun 27 15 :16:00 EST 2020 Opiates NEGATIVE ng/mL Sat Jun 10 15:16:00 EST 2020 Codeine DNR ng/mL Sat Jun 27 15 :16:00 EST 2019 Hydrocodone DNR ng/mL Sat Jun 10 15:16:00 EST 2019 Hydromorphone DNR ng/mL Sat Jun 27 15:16:00 [...] 28 1 3:42:00 EST 2020 NOTE DNR SatJun 28 13:42 :00 EST 2020 COLOR YELLOW [...] DNR /LPF Jie Jul 16 07:1 6:00 2020 YEAST FEW /HPF Jie Jul 06 [...] GLUCOSE 79 mg/dL SatJul 31 11 :33:00 2019 UREA NITROGEN (BUN) 11 mg/dL F Jul 31 11:33:00 2019 CREATININE 0.78 mg/dL SatJul 31 11:33:00 2019 eGFR NON-AFR. MALIAN 101 mL/min/1.73m2 SatJul 31 11:33:00 2019 eGFR 117 mL/min/1.73m2 SatJul 31 11:33:00 2019 BUN/CREATININE RATIO NOT APPLICABLE (calc ) SatJul 31 11:33:00 2019 SODIUM 135 mmol/L SatJul 31 11: 33:00 2020 POTASSIUM 4.8 mmol/L SatJul 31 11:33:00 2019 CHLORIDE 102 mmol/L SatJul 31 1 1:33:00 EST 2020 CARBON DIOXIDE 26 mmol/L Sat Fe b 11:33:00 EST 2020 CALCIUM 9.0 mg/dL Sat Feb 11 :33:00 EST 2020 PROTEIN, TOTAL 6.4 g/dL Sat Fe b 11:33:00 EST 2020 ALBUMIN 3.6 g/dL Sat Feb 11 :33:00 EST 2020 GLOBULIN 2.8 g/dL (calc) Satb 11:33:00 EST 2020 ALBUMIN/GLOBULIN RATIO 1.3 (calc) Sat Feb 11:33:00 EST 2020 BILIRUBIN, TOTAL 0.3 mg/dL Sat Feb 11:33:00 EST 2020 ALKALINE PHOSPHATASE 71 U/L Sat Feb 11:33:00 EST 2020 AST 19 U/L Sat Feb 11:33: 00 EST 2020 ALT 19 U/L Sat Feb 11:33: 00 EST 2020 WHITE BLOOD CELL COUNT 9.0 Thousand/uL SatJul 31 11:33:00 EST 2020 RED BLOOD CELL COUNT 4.58 Million/uL Satb 11:33:00 EST 2020 HEMOGLOBIN 14.7 g/dL Sat Feb 11:33:00 EST 2020 HEMATOCRIT 43.1 % Satb 11:33:00 EST 2020 MCV 94.1 fL Sat Feb 11:33: 00 EST 2020 MCH 32.1 pg SatJul 31 11:33: 00 EST 2020 MCHC 34.1 g/dL SatJul 31 11:33 :00 EST 2020 RDW 13.6 % [...] 11:33:00 EST 2020 ABSOLUTE EOSINOPHILS 99 cells/uL Satb 11:33:00 EST 2020 ABSOLUTE BASOPHILS 36 cells/uL F ri Feb 21 11:33:00 EST 2020 ABSOLUTE BLASTS DNR cells/uL Sat Feb 21 11:33:00 2019 ABSOLUTE NUCLEATED RBC DNR cells/uL Sat Feb 21 11:33:00 2020 NEUTROPHILS 63.6 % Fri Feb 2 1 11:33:00 EST 2020 BAND NEUTROPHILS DNR % Sat Feb 21 11:33:00 2020 METAMYELOCYTES DNR % Fri Fe b 21 11:33:00 EST 2020 MYELOCYTES DNR % Sat Feb 21 11:33:00 EST 2020 PROMYELOCYTES DNR % Sat Feb 11:33:00 2020 LYMPHOCYTES 29.8 % Fri Feb 2 1 11:33:00 2020 REACTIVE LYMPHOCYTES DNR % Sat Feb 11:33:00 2019 MONOCYTES 5.1 % Sat Feb 11:33:00 2020 EOSINOPHILS 1.1 % Sat Feb 2 1 11:33:00 2020 BASOPHILS 0.4 % Sat Feb 11:33:00 2019 BLASTS DNR % Sat Feb 11: 33:00 2019 NUCLEATED RBC DNR /100 WBC Fri F eb 11:33:00 2019 COMMENT(S) DNR Satb [...] <15 NOT DETECTED IU/mL SatJul 21 05:49:00 2020 HCV RNA, QUANTITATIVE REAL TIME PCR [...] 2 3:32:00 2019 CARBON DIOXIDE 23 mmol/L [facility] r 23:32:00 2019 CREATININE, RANDOM URINE 104 mg/dL SatAug 10 23:32:00 2019 ALBUMIN, URINE 92.9 mg/dL [facility] r 23:32:00 2019 ALBUMIN/CREATININE RATIO, RANDOM URINE 893 mcg/mg creat SatAug 10 23:32:00 2019 CREATININE 0.71 mg/dL SatAug 10 23:32:00 2019 eGFR NON-AFR. MALIAN 113 mL/min/1.73m2 SatAug 10 23:32:00 2019 eGFR 132 mL/min/1.73m2 SatAug 10:32:00 2019 HEMOGLOBIN 13.2 g/dL SatAug 10:32:00 2019 PARATHYROID HORMONE, INTACT 34 pg/mL SatAug 10:32:00 2019 CALCIUM 8.8 mg/dL SatAug 10 :32:00 2019 PHOSPHATE ( PHOSPHORUS) 4.3 mg/dL SatAug 10:32:00 2019 VITAMIN D,25-OH,TOTAL,IA 19 ng/mL SatAug 10:32:00 2019 PROTEIN, TOTAL 6.8 g/dL [facility] r 08 30:32:00 2019 ALBUMIN 3.7 g/dL [...] 10:32: 00 2019 ALT 35 U/L SatAug 10 23:32: 00 2019 HEPATITIS C VIRAL RNA GENOTYPE, [...] 03 23:32:00 EST 2020 BLASTS DNR % Sat 03 23: 32:00 EST 2020 NUCLEATED RBC DNR /100 WBC Tue M 23:32:00 EST 2020 COMMENT(S) DNR SatAug 10 23:32:00 EST 2020 INR 1.0 SatAug 10 23:32: 00 EST 2020 PT 10.4 sec e Aug 10 23:32:0 0 EST 2020 HEPATITIS B [...] 2020 HEPATITIS A IGM BORDERLINE Sat Feb 05:41:00 EST 2020 HEPATITIS A IGM BORDERLINE SatAug 09 12:28:00 EST 2020 HEPATITIS A IGM BORDERLINE Mon Aug 09 12:28:00 EST 2020 HEPATITIS A IGM BORDERLINE SatAug 10 14:18:00 EST 2020 HEPATITIS A IGM BORDERLINE SatAug 10 14:18:00 EST 2020 HEPATITIS A IGM BORDERLINE SatAug 10 23:32:00 EST 2020 HEPATITIS A IGM BORDERLINE e Aug 10 23:32:00 EST 2020 CREATININE, RANDOM URINE 106 mg/dL Satb 12:48:00 EST 2020 Benzodiazepines NEGATIVE ng/mL F ri Feb 12:48:00 EST 2020 Alphahydroxyalprazolam DNR ng/mL Fri Feb 12:48:00 EST 2020 Alphahydroxymidazolam DNR ng/mL Fri [...] ng/mL Sat Mar 21 12:48:00 EDT 2019 Nordiazepam DNR ng/mL Sat Mar 2 1 12:48:00 EDT 2020 Oxazepam DNR ng/mL Sat Mar 21 1 2:48:00 EDT 2019 Temazepam DNR ng/mL Sat Mar 21 12:48:00 EDT 2019 Confirmation Testing Performed at: DNR Sat Mar 21 12:48:00 EDT 2019 COMMENT Sat Mar 21 12 :48:00 EDT 2019 Cocaine Metabolite [...] EDT 2020 Marijuana Metabolite DNR ng/mL Sat Aug 21 12:48:00 EDT 2020 Confirmation Testing Performed at: DNR Sat Aug 21 12:48:00 EDT 2019 COMMENT Sat Aug 21 12 :48:00 EDT 2020 Opiates NEGATIVE ng/mL Sat Mar 2 1 12:48:00 EDT 2020 Codeine DNR ng/mL Sat Mar 21 12 [...] COMMENT Sat Aug 21 12 :48:00 EDT 2020 CREATININE, RANDOM URINE 59 mg/dL Jie Sep [...] NEGATIVE ng/mL Jie Sep 02 11:27:00 EDT 2020 Benzoylecgonine DNR ng/mL Jie M ar 26 11:27:00 EDT 2020 Confirmation Testing Performed at: DNR Jie Sep 02 11:27:00 EDT 2019 COMMENT Jie Sep 02 11 :27:00 EDT 2019 Alcohol, Ethyl NEGATIVE mg/dL Th u Sep 02 11:27:00 EDT 2019 Alcohol, Ethyl DNR mg/dL Jie Ma r 26 11:27:00 EDT 2019 Confirmation Testing Performed at: [...] EDT 2019 Hydrocodone DNR ng/mL Jie Aug 09 6 11:27:00 EDT 2019 Hydromorphone DNR ng/mL [...] 17 01:48:00 EDT 2020 Norfentanyl NEGATIVE ng/mL Sat 01:48:00 EDT 2020 COMMENT SatSep 17 01 :48:00 EDT 2020 Benzodiazepines NEGATIVE ng/mL F ri Sep 17 01:48:00 EDT 2020 Alphahydroxyalprazolam DNR ng/mL SatSep 17:48:00 EDT 2019 Alphahydroxymidazolam DNR ng/mL SatSep 17:48:00 EDT 2019 Alphahydroxytriazolam DNR ng/mL SatSep 17:48:00 EDT 2019 Aminoclonazepam DNR ng/mL Sat A pr 10 :48:00 EDT 2020 Hydroxyethylflurazepam [...] 2019 COMMENT SatSep 17 :48:00 EDT 2019 Opiates NEGATIVE ng/mL Sat 1 0 01:48:00 EDT 2019 Codeine DNR ng/mL SatSep 17 01 :48:00 EDT 2019 Hydrocodone DNR ng/mL Sat 1 0 01:48:00 EDT 2019 Hydromorphone DNR ng/mL SatSep 17 01:48:00 EDT 2019 Morphine DNR ng/mL Sat [...] Metabolite NEGATIVE ng/mL SatOct 01 02:02:00 EDT 2020 Benzoylecgonine DNR ng/mL Sat pr 24 02:02:00 EDT 2020 Confirmation Testing Performed at: DNR SatOct 01 02:02:00 EDT 2019 COMMENT SatOct 01 02 :02:00 EDT 2020 Alcohol, Ethyl NEGATIVE mg/dL Fr i Apr 02:02:00 EDT 2019 Alcohol, Ethyl DNR mg/dL Fri Ap r 24 02:02:00 EDT 2020 Confirmation Testing Performed at: DNR SatOct 01 02:02:00 EDT 2019 COMMENT SatOct 01 02 :02:00 EDT 2019 Marijuana Metabolite 20 NEGATIVE ng/mL SatOct 01 02:02:00 EDT 2019 Marijuana Metabolite DNR ng/mL SatOct 01 02:02:00 EDT 2019 Confirmation Testing Performed at: DNR SatOct 01 02:02:00 EDT 2019 COMMENT SatOct 01 02 :02:00 EDT 2019 Opiates NEGATIVE ng/mL SatSep 09 02:02:00 EDT 2019 Codeine DNR ng/mL SatOct 01 02 :02:00 EDT 2019 Hydrocodone DNR ng/mL SatSep 09 02:02:00 EDT 2019 Hydromorphone DNR ng/mL SatOct [...] 0.020NegativeNegative * ng/mL SatOctober 16 14:39:04 EDT 2019 Norcarfentanil 0.230NegativeNegativ e ng/mL SatOctober 16 14:39:04 [...] 16 14:39:05 EDT 2020 Clomipramine 8.540NegativeNegative* ng/mL SatOctober 16 14:39:05 EDT 2020 Desipramine 5.480NegativeNegative * ng/mL SatOctober 16 14:39:06 EDT 2020 Creatinine 204.1NORMALNORMAL mg/ dL [facility] Feb 03 14:38:10 EDT 2020 pH 6.3NORMALNORMAL Jie Feb 03 14:38:32 EDT 2020 Oxidants -17.00NegativeNegative mcg/mL [facility] Feb 03 14:36:48 EDT 2020 Validity Result VALIDVALIDVALID [facility] Feb 03 14:45:22 EDT 2020 Amphetamines 209.00NegativeNegative ng/mL [facility] Feb 03 14:33:53 EDT 2020 Barbiturates -15.00NegativeNegative ng/mL [facility] Feb 03 14:34:12 EDT 2020 Benzodiazepines -31.00Negative *Negative ng/mL [facility] Feb 03 14:34:21 EDT 2020 Buprenorphine 0.80NegativeNegative* ng/mL [facility] Feb 03 14:34:27 EDT 2020 Cocaine Metabolites 175.00Negati veNegative ng/mL [facility] Feb 03 14:35:00 EDT 2020 Cotinine 1671.00PRESUMPTIVE POSI TIVEPRESUMPTIVE POSITIVE ng/mL [facility] Feb 03 14:35:07 EDT 2020 EDDP -91.00NegativeNegative ng/m L [facility] Feb 03 14:35:14 EDT 2020 Ethyl Glucuronide 26.00Negative* Negative ng/mL [facility] Feb 03 14:35:21 EDT 2020 Ethyl Alcohol 7.00NegativeNegative* mg/dL [facility] Feb 03 14:35:46 EDT 2020 Fentanyl 0.100NegativeNegative n g/mL [facility] Feb 03 14:35:53 EDT 2020 Heroin (6-AM) -1.30NegativeNegative ng/mL Jie Feb 03 14:35:59 ED2019 Methadone -37.00NegativeNegative ng/mL Jie Feb 03 14:36:13 EDT 2020 Opiates -32.00NegativeNegative n g/mL SatFeb 03 14:36:28 ED2019 Synthetic Opiates -13.00Negative Negative ng/mL SatFeb 03 14:37:06 EDT 2020 Phencyclidine -4.90NegativeNegative ng/mL Jie Feb 03 14:37:16 EDT 2019 Cannabinoids 7.80NegativeNegative * ng/mL SatFeb 03 14:37:27 ED 2020 Tramadol -18.00NegativeNegative ng/mL Jie Feb 03 14:37:51 2019 Tricyclics 16.00NegativeNegative ng/mL SatFeb 03 14:38:40 ED2019 Ecstasy (MDMA) -1.00NegativeNegativ e [...] 2019 Amphetamines 62.00NegativeNegative* ng/mL Jie Nov 10 27:51:41 2019 Barbiturates 0.00NegativeNegative * ng/mL Jie Nov 10 27:51:2019 Benzodiazepines -3.00Negative Negative ng/mL Jie Nov 10 27:51:41 2019 Buprenorphine 43.40PRESUMPTIVE P OSITIVEPRESUMPTIVE POSITIVE ng/mL Jie Nov 10 27:51:2019 Cocaine Metabolites 7.00Negative Negative ng/mL Jie Nov 10 27:51:2019 Cotinine 763.00PRESUMPTIVE POSIT CHIARAPRESUMPTIVE POSITIVE ng/mL Jie Apr 14::2019 EDDP -34.00NegativeNegative ng/m L Jie Apr 14::2019 Ethyl Glucuronide -12.00Negative Negative ng/mL Jie Apr 14:51:2019 Ethyl Alcohol 1.00NegativeNegative* mg/dL Jie Apr 14:51:2019 Fentanyl 0.300NegativeNegative n g/mL SatApr 14::2019 Heroin (6-AM) 1.10NegativeNegative* ng/mL Jie Apr 14:51:2019 Methadone -11.00NegativeNegative ng/mL Jie Nov 10 27:51:41 2019 Opiates 0.00NegativeNegative ng/ mL Jie Nov 10 27:51:41 2019 Synthetic Opiates -16.00Negative Negative ng/mL Jie Nov 10 27:51:41 2019 Phencyclidine 11.70NegativeNegative ng/mL Jie Nov 10 27:51:41 2019 Cannabinoids -5.40NegativeNegative* ng/mL Jie Nov 10 27:51:41 2019 Tramadol 14.00NegativeNegative n g/mL Jie Apr 14 [...] 18 17:21:06 2019 Opiates -36.00NegativeNegative n g/mL SatMay 18 [...] 12 19:45:21 EST 2020 Amphetamines 299.00NegativeNegative ng/mL SatJul 12 19:41:14 EST 2020 Barbiturates -2.00NegativeNegative* ng/mL SatJul 12 19:41:14 EST 2020 Benzodiazepines 3.00NegativeNegativ e ng/mL SatJul 12 19:41:14 EST 2020 Buprenorphine 111.10PRESUMPTIVE POSITIVEPRESUMPTIVE POSITIVE ng/mL SatJul 12 19:41:14 EST 2020 Cocaine Metabolites -28.00Negati veNegative ng/mL SatJul [...] SatJul 12 19:41:15 2020 Phencyclidine 1.30NegativeNegative* ng/mL [facility] 19:41:15 EST 2020 Cannabinoids -5.60NegativeNegative* ng/mL [facility] Jul 12 19:41:15 2020 Tramadol 42.00NegativeNegative n g/mL [facility] Jul 12 19:41:15 EST 2020 Tricyclics 547.00PRESUMPTIVE POS ITIVEPRESUMPTIVE POSITIVE ng/mL [facility] Jul 12 19:41:15 2020 Ecstasy (MDMA) 50.00NegativeNegativ e ng/mL [facility] Jul 12 19:41:16 EST 2020 Buprenorphine 216.190Positive - ConsistentPOSITIVE ng/mL [facility] Jul 13 11:17:06 2020 Norbuprenorphine 476.890Positive - ConsistentPOSITIVE ng/mL [facility] Jul 13 11:17:06 EST 2020 Naloxone 629.130Positive - Incon sistentPOSITIVE ng/mL [facility] Jul 13 11:17:06 2020 Norfentanyl 0.610NegativeNegative * ng/mL [facility] Jul 13 11:17:06 EST 2020 Fentanyl 0.040NegativeNegative n g/mL [facility] Jul 13 11:17:06 2020 Carfentanil 0.040NegativeNegative * ng/mL [facility] Jul 13 11:17:06 2020 Norcarfentanil 0.190NegativeNegativ e ng/mL [facility] Jul 13 11:17:06 2020 Sufentanil 0.080NegativeNegative ng/mL [facility] Jul 13 11:17:06 2020 Desmethyldoxepin 0.000Negative *Negative ng/mL [facility] Jul 13 11:17:06 2020 Doxepin 0.000NegativeNegative ng /mL [facility] Jul 13 11:17:06 EST 2020 Imipramine 3.450NegativeNegative ng/mL Wed Feb 11:17:06 2020 Nortriptyline 6.610NegativeNegative ng/mL Sat Feb 11:17:06 2020 Amitriptyline 4.260NegativeNegative ng/mL Satb 11:17:06 2020 Clomipramine 12.060NegativeNegative ng/mL Wed Feb 11:17:06 2020 Desipramine 7.260NegativeNegative * ng/mL Satb 11:17:06 2020 Aripiprazole 0.000NegativeNegative* ng/mL Satb 10:13:02 2020 Chlorpromazine 0.160NegativeNegativ e ng/mL Satb 10:13:02 EST 2020 Clozapine 0.020NegativeNegative ng/mL Satb 10:13:02 2020 Fluphenazine 0.090NegativeNegative* ng/mL Satb 10:13:03 EST 2020 Haloperidol 0.040NegativeNegative * ng/mL Satb 10:13:03 [...] 2020 mCPP 50Positive - Consistent *POSITIVE> ng/mL SatJul 13 10:13:03 2020 Creatinine 221.8NORMALNORMAL mg/ dL Jie Sep 15 17:16:19 EDT 2020 pH 6.1NORMALNORMAL Jie Sep 15 17:16:20 EDT 2020 Oxidants -5.00NegativeNegative m [...] 17 07:57:44 EDT 2020 Olanzapine 0.120NegativeNegative ng/mL Mon Sep 19 07:41:23 [...] Dec 29 12:55 :00 EDT 2020 E [id number] null GLUCOSE 92 mg/dL SatJan 04 11 [...] cells/uL SatJan 04 11:34:00 EDT 2020 ABSOLUTE MO DNR cells/uL SatJan 04 11:34:00 EDT 2020 [...] W/ NON-REACTIVE Sat 11:34:00 EDT 2020 E [id number] null Medications Medication Directions Start Date End [...] by mouth daily SatJan 26 00:00:00 EDT 2020Feb 24 00:00 :00 EDT 2020 rOPINIRole HCl 0.25 MG TAB Take one (1) tablet by mouth three times a day SatJan 26 00:00:00 EDT 2020Feb 24 00:00 :00 EDT 2020 LAMICTAL (LAMOTRIGINE) 25 MG TABLET 2 Tablet HS: At Bedtime ORAL SatJan 24 06:00:00 EDT 2020 18 12:55 :00 EDT 2020 Minipress 1 MG CAP Take one (1) cap robert by mouth daily SatJan 24 00:00:00 EDT 2020Jan 24 00:00 :00 EDT 2020 Wellbutrin XL 150 MG T24 Take one ( 1) tablet by mouth daily SatJan 24 00:00:00 ED2020Jan 24 00:00 :00 EDT 2020 traZODone hydrochloride [...] at bedtime SatJan 24 00:00:00 EDT 2020 Wed Sep 15 00:00:00 EDT 2020 Topamax 25 MG CAP Take one (1) caps ule by mouth twice a day SatJan 24 00:00:00 EDT 2020 Wed Sep 15 00:00 :00 EDT 2020 Vistaril 25 MG CAP Take one (1) cap robert by mouth three times a day, as needed for anxiety SatJan 24 00:00:00 EDT 2020 Wed Sep 15 00:00:00 EDT 2020 SEROquel 25 MG TAB Take one (1) tab let by mouth three times a day SatJan 24 00:00:00 EDT 2020 Wed Sep 15 00:00 :00 EDT 2020 Minipress 1 MG CAP Take one (1) cap robert by mouth daily SatJan 24 00:00:00 ED2020Jan 24 00:00 :00 ED2020 SEROquel 100 MG TAB Take one (1) ta blet by mouth at bedtime SatJan 24 00:00:00 EDT 2020 [facility] Sep 15 00:00 :00 EDT 2020 Wellbutrin XL 150 MG T24 Take one ( 1) tablet by mouth daily SatJan 24 00:00:00 ED2020Jan 24 00:00 :00 EDT 2020 traZODone hydrochloride 150 MG TAB Take one (1) tablet by mouth at bedtime SatJan 24 00:00:00 ED2020Jan 24 00:00:00 EDT 2020 Topamax 25 MG CAP Take one (1) caps ule by mouth twice a day SatJan 24 00:00:00 EDT 2020Jan 24 00:00 :00 EDT 2020 Vistaril 25 MG CAP Take one (1) cap robert by mouth three times a day, as needed for anxiety SatJan 24 00:00:00 ED2020Jan 24 00:00:00 ED2020 SEROquel 25 MG TAB [...] As Needed ORAL SatJan 20 08:00:00 EDT 2020 Sat Jan 21 07:59:00 EDT 2020 SUBOXONE (BUPRENORPHINE-NALOXONE) 4MG-1MG F ILM 1 Film TID: Three Times a Day SUBLINGUAL Jie Jan 19 00:00:00 EDT 2020Jan 20 09:07:00 EDT [...] ACETATE) 0.15 MG/1 ACT UATION SPRAY 1 Page BIDPRN: Twice A Day As Needed NASAL [...] 06:00:00 EDT 2020Jan 25 12:55:00 EDT 2020 CLONIDINE [...] HS: At Bedtime ORAL SatDec 28 16:07:00 ED2020Jan 09 09:27 :00 EDT 2020 SENNA 8.6 [...] 2020 FIBER-LAX 625 MG TABLET 2 tablet MO N: As Needed ORAL (MDD 4 Tabs) [...] three times a day SatDec 09 00:00:00 EDT 2020Jan 07 00:00 :00 EDT 2020 cloNIDine HCl 0.1 MG TAB Take one ( 1) tablet by mouth three times a day, as needed SatDec 09 00:00:00 ED2020Jan 24 00:00:00 EDT 2020 Minipress 1 MG CAP Take one (1) cap robert by mouth daily SatDec 09 00:00:00 ED2020Jan 24 00:00 :00 EDT 2020 SEROquel 100 MG TAB Take one (1) ta blet by mouth at bedtime SatDec 09 00:00:00 ED2020Jan 07 00:00 :00 ED2020 Wellbutrin XL 150 MG T24 Take one ( 1) tablet by mouth daily SatDec 09 00:00:00 2020Jan 24:00 :00 2020 traZODone hydrochloride 150 MG TAB Take one (1) tablet by mouth at bedtime SatDec 09 00:00:00 2020Jan 24 00:00:00 2020 Topamax 25 MG CAP Take one (1) caps ule by mouth twice a day SatDec 09:00:00 2020Jan 24 00:00 :00 2020 Vistaril 25 MG CAP Take one (1) cap robert by mouth three times a day, as needed for anxiety SatDec 09:00:00 2020Jan 24:00:00 2020 SEROquel 25 MG TAB Take one (1) tab let by mouth three times a day SatDec 09:00:00 2020Jan 24:00 :00 2020 Effexor XR 37.5 [...] cap robert by mouth at bedtime SatDec 09:00:00 2020Jan 24 00:00 :00 2020 SEROquel 100 MG TAB Take one (1) ta blet by mouth at bedtime SatNov 10 00:00:00 2020Dec 09:00 :00 2020 Effexor XR 37.5 MG CER Take one (1) capsule by mouth every morning SatNov 10 00:00:00 2020Dec 09:00 :00 [address] one (1) bran m under the tongue three times a day SatNov 10 00:00:00 ED2020Dec 09 00:00 :00 [...] 10 00:00:00 2020Dec 08 00:00 :00 2020 Minipress 5 MG CAP Take one (1) cap robert by mouth at bedtime SatOctober 10 00:00:00 EDT 2020 Jie Dec 08 00:00 :00 EDT 2020 SEROquel 100 [...] three times a day, as needed SatAug 09:00:00 EST 2020Oct 07 00:00:00 EDT 2020 Minipress [...] by mouth at bedtime SatAug 09 00:00:00 2020Sep 09 00:00 :00 ED2020 Minipress 5 MG CAP Take one (1) cap robert by mouth at bedtime SatAug 09 00:00:00 2020Oct 07 00:00 :00 EDT 2020 Suboxone [...] 00:00:00 EST 2019May 30 00:00:00 EST 2019 Buprenorphine-Naloxone 0.0 [...] a day, as needed SatMay 30 00:00:00 2019u b 00:00:00 EST 2020 Minipress 1 MG CAP Take one (1) cap robert by mouth daily SatMay 30 00:00:00 2019u Feb 00:00 :00 2020 traZODone hydrochloride 100 MG TAB Take one (1) tablet by mouth at bedtime SatMay 30 00:00:00 2019Jun 13 00:00:00 2020 Wellbutrin XL 150 MG T24 Take one ( 1) tablet by mouth daily SatMay 30 00:00:00 2019u b 00:00 :00 EST 2020 Vistaril 25 MG CAP Take one (1) cap robert by mouth three times a day, as needed for anxiety SatMay 30 00:00:00 2019u b 00:00:00 2020 SEROquel 25 MG TAB Take one (1) tab let by mouth three times a day SatMay 30 00:00:00 2019u b 00:00 :00 2020 lamoTRIgine 25 MG TAB Take two (2) tablets by mouth at bedtime SatMay 30 00:00:00 2019u b 00:00 :00 EST 2020 Buprenorphine-Naloxone 0.0 BRAN [...] daily SatMay 17 00:00:00 2019May 30 00:00 :00 EST 2019 traZODone hydrochloride 100 MG TAB Take one (1) tablet by mouth at bedtime SatMay 17 00:00:00 2019May 30:00:00 2019 Wellbutrin XL 150 MG T24 Take one ( 1) tablet by mouth daily SatMay 17:00:00 2019May 30:00 :2019 Vistaril 25 MG CAP Take one (1) cap robert by mouth three times a day, as needed for anxiety SatMay 17:00:2019May 30:00:00 2019 SEROquel 25 MG TAB Take one (1) tab let by mouth three times a day SatMay 17 00:00:00 2019May 30:00 :00 2019 lamoTRIgine 25 MG TAB Take two (2) tablets by mouth at bedtime SatMay 17 00:00:00 2019May 30:00 :00 2019 Minipress 5 MG [...] 2019Apr 25 00:00:00 2019 DDAVP 0.0 SPR Page two (2) sprays in nostril(s) daily SatApr 12 00:00:00 2019Sep 09 00:00 :00 EDT 2020 cloNIDine HCl 0.1 MG TAB Take one ( 1) tablet by mouth three times a day, as needed SatApr 12 00:00:00 2019May 11 00:00:00 2019 rOPINIRole HCl 0.25 MG TAB Take one (1) tablet by mouth three times a day SatApr 12:00:00 2019Sep 09:00 :00 EDT 2020 Esomeprazole Magnesium 20 MG [...] 1) spray into the lungs daily SatApr 12:00:00 2019Sep 09 00:00 :00 EDT 2020 traZODone [...] mouth three times a day SatApr 12:00:00 2019May 11 00:00 :00 2019 lamoTRIgine 25 MG TAB Take two (2) tablets by mouth at bedtime SatApr 12 00:00:00 2019May 11 00:00 :00 2019 Albuterol Sulfate [...] 12 00:00:00 2019Jun 10 00:00 :00 EST 2021 Narcan 0.0 SPR Page one (1) spray in nostril(s) daily SatApr [...] SatApr 07 00:00:00 2019Sep 09 00:00 :00 2020 ZyPREXA 10 MG TAB Take [...] under the tongue daily SatFeb 02 00:00:00 ED2019Feb 08 00:00 :00 EDT [address] one (1) bran m under the tongue twice a day SatNov 17 00:00:00 ED2019Nov 30 00:00 :00 ED2019 Vistaril 25 MG CAP Take one (1) cap robert by mouth twice a day, as needed SatNov 17 00:00:00 ED2019Dec 16 00:00 :00 ED[address] [...] 03 00:00 :00 2019 Narcan 0.0 SPR Page one (1) spray in nostril(s) daily SatNovember [...] 00:00:00 2019Sep 09:00:00 2020 DDAVP 0.0 SPR Page two (2) sprays in nostril(s) daily SatApr 12 00:00:00 2019Sep 09 00:00 :00 2020 rOPINIRole HCl 0.25 MG TAB Take one (1) tablet by mouth three times a day SatApr 12:00:00 2019Sep 09 00:00 :00 2020 Esomeprazole Magnesium 20 MG ECC Ta ke one (1) capsule by mouth daily SatApr 12:00:00 2019Sep 09 00:00 :00 2020 Ibuprofen 600 [...] blet by mouth daily SatApr 12:00:00 2019Sep 09 00:00 :00 2020 Narcan 0.0 SPR Page one (1) spray in nostril(s) daily SatApr [...] by mouth at bedtime SatAug 18 00:00:00 ED2019Sep 15 00:00 :00 EDT [address] one (1) bran m under the tongue twice a day SatAug 18 00:00:00 ED2019Aug 25 00:00 :00 EDT 2019 Singulair 10 MG TAB Take one (1) ta blet by mouth daily SatAug 13 00:00:00 2019Sep 11 00:00 :00 EDT 2019 Prazosin HCl 2 MG CAP Take two (2) capsules by mouth at bedtime SatAug 13 00:00:00 2019October 11 00:00 :00 ED2019 ZyPREXA 10 MG TAB Take one (1) tabl et by mouth at bedtime SatAug 05 00:00:00 2019Sep 02 00:00 :00 ED2019 SEROquel 100 MG TAB Take one (1) ta blet by mouth twice a day SatAug 05 00:00:00 2019Sep 02 00:00 :00 EDT 2019 lamoTRIgine 25 MG TAB Take one (1) tablet by mouth twice a day SatAug 05 00:00:00 2019Sep 02 00:00 :00 ED2019 traZODone hydrochloride 50 MG TAB T deb one (1) tablet by mouth at bedtime SatAug 05 00:00:00 2019Aug 26 00:00:00 ED2019 Prazosin HCl 1 MG CAP Take three [...] SatAug 05 00:00:00 2019Sep 15 00:00 :00 ED[address] one (1) bran m under the tongue twice a day SatAug 05 00:00:00 2019Aug 17 00:00 :00 EDT 2019 METRONIDAZOLE 500 MG TABLET SatJul 31 08:00:00 EST 2020 Mon Mar 02 07:59:00 [...] MG TABLET e Feb 11 08:00:00 EST 2019e Mar 10 08:59:00 EDT 2020 TOPAMAX (TOPIRAMATE) 25 MG TABLET e Feb 11 08:00:00 EST 2019 Tue Mar 10 08:59:00 EDT 2020 WELLBUTRIN XL (BUPROPION HYDRO CHLORIDE) 150 MG TABLET, EXTENDED RELEASE, 24 HR e Feb 11 08:00:00 2019e Mar 10 08:59:00 EDT 2020 QUETIAPINE FUMARATE 50 MG TABLET, EXTENDED RELEASE e Feb 11 15:37:00 2019e Mar 10 16:36:00 EDT 2020 QUETIAPINE FUMARATE 50 MG TABLET, EXTENDED RELEASE e Feb 11 21:00:00 EST 2019e Mar 10 21:59:00 EDT 2020 LAMOTRIGINE 25 MG TABLET Wed Feb 12 08:00:00 EST 2019 Wed Mar 11 08:59:00 EDT 2020 PRAZOSIN HCL 2 MG CAPSULE e Feb 11 21:00:00 2019e Mar 10 21:59:00 EDT 2020 SUBOXONE (BUPRENORPHINE-NALOXONE) 8MG-2MG FILM Mon Feb 10 23:24:00 EST 2019 Jie Feb 20 23:23:00 EST 2020 TRAZODONE HYDROCHLORIDE 50 MG TABLET Sat Feb 10 23:24:00 EST 2019e Mar 10 00:23:00 EDT 2020 NARCAN (NALOXONE HCL) 4 MG/0.1 ML SPRAY Mon Feb 10 23:24:00 EST 2020 Mon Feb 24 23:23:00 EST 2020 VENTOLIN HFA (ALBUTEROL SULFAT E) 0.09 MG/1 ACTUATION SUSPENSION Sat Feb 10 23:24:00 EST 2020 e Mar 10 00:23:00 EDT 2020 NARCAN (NALOXONE HCL) 4 MG/0.1 ML SPRAY Mon Feb 10 23:24:00 EST 2020 Mon Feb 24 23:23:00 EST 2020 PEPCID (FAMOTIDINE) 40 MG TABLET Sat Feb 10 23:24:00 EST 2020 Tue Mar 10 00:23:00 EDT 2020 ORAJEL MOUTH SORE MEDICINE (BE NZALKONIUM CHLORIDE-BENZOCAINE/ZINC CHLORIDE) 0.02%-20%-0.1% GEL/JELLY Mon Feb 1 0 23:24:2019 10 00:23:00 EDT 2019 MYLANTA (ALUMINUM HYDROXIDE-MA GNESIUM HYDROXIDE-SIMETHICONE) 200MG/5 ML-200MG/5 ML-20MG/5 ML SUSPENSION Mon Feb 10 ::2019 10 00:23:00 EDT 2019 MULTIVITAMIN TABLET Sat Feb 10 ::2019Aug 17 00:23:00 EDT 2019 MELATONIN 5 MG CAPSULE Sat Feb 10 :24:00 2019Aug 17 00:23:00 EDT 2019 ICY HOT (MENTHOL-METHYL SALICYLATE) 10%-30% CREAM Sat Feb 10 :24:00 2019Aug 17 00:23:00 EDT 2019 FIBER-LAX 625 MG TABLET Sat Feb 10 ::2019Aug 17 00:23:00 EDT 2019 CLARITIN (LORATADINE) 10 MG TABLET Sat Feb 10 :24:2019Aug 17 00:23:00 EDT 2019 BENADRYL ALLERGY (DIPHENHYDRAM INE HYDROCHLORIDE) 25 MG TABLET Sat Feb 10 :24:00 2019Aug 17 00:23:00 EDT 2019 TUMS (CALCIUM CARBONATE) 500 MG TABLET, CHEWABLE Sat Feb 10 :24:2019Aug 17 00:23:00 EDT 2019 GAS-X (SIMETHICONE) 80 MG TABLET, CHEWABLE Sat Feb 10 ::2019Aug 17 00:23:00 EDT 2019 ACETAMINOPHEN (TYLENOL) 500 MG TABLET Sat Feb 10 :24:00 2019Aug 17 00:23:00 EDT 2020 NICOTINE POLACRILEX 4 MG LOZENGE/BERTHA Sat Feb 10 :24:00 2019b 24 23::00 EST 2019 MONTELUKAST SODIUM 10 MG TABLET Sat Feb 10 :24:00 2019Aug 17 00:23:00 EDT 2019 ADVAIR DISKUS 250/50 (FLUTICAS ONE PROPIONATE-SALMETEROL XINAFOATE) 0.25MG/1 ACTUATION-0.05MG/1 ACTUATION DISK Mo n Jul 10 :24:00 2019Aug 17 00:23:00 EDT 2019 HYDROXYZINE HCL 25 MG TABLET SatJul 20::00 2019 Sat Feb 15 :23:00 2019 ZOFRAN (ONDANSETRON) 4 MG TABLET, DISINTEGRATING SatJul 20:24:00 2019 Sat Feb 15 :23:00 2019 CATAPRES (CLONIDINE HYDROCHLORIDE) 0.1 MG TABLET SatJul 20:24:00 2019 Sat Feb 15 ::00 2019 XOPENEX (LEVALBUTEROL HYDROCHLORIDE) 1.25 MG /3 ML SOLUTION SatJul 20:24:00 2019Aug 17 00:23 :00 EDT 2019 TRIPLE ANTIBIOTIC OINTMENT 40 0UNITS/1GM-3.5MG/1GM-5000UNITS/1GM OINTMENT SatJul 20:24:00 2019Aug 17 00:23:00 EDT 2019 PEPTO-BISMOL (BISMUTH SUBSALICYLATE) 262 MG/ 15 ML SUSPENSION SatJul 20:24:00 2019Aug 17 00:23 :00 EDT 2019 MILK OF MAGNESIA 400 MG/5 ML SOLUTION SatJul 20::00 2019Aug 17 00:23:00 EDT 2019 GUAIFENESIN 600 MG TABLET, EXTENDED RELEASE SatJul 20:24:00 2019Aug 17 00:23:00 EDT 2019 COLACE (DOCUSATE SODIUM) 100 MG CAPSULE, LIQ UID FILLED SatJul 20:24:00 2019Aug 17 00:23 :00 EDT 2019 BENADRYL ALLERGY (DIPHENHYDRAM INE HYDROCHLORIDE) 25 MG TABLET SatJul 20 23:24:00 2019 e Aug 17 00:23:00 EDT 2019 EUCERIN DAILY PROTECTION (LOTI ON, MULTI INGREDIENT) 2%-7.5%-4.5%-2.4%-4.8% LOTION Sat 10 23:2 4:00 2019Aug 17 00:23:00 EDT [...] 15:55:00 EST 2019Aug 14 15:54:00 EST 2019 TUMS (CALCIUM CARBONATE) 500 MG TABLET, CHEWABLE Sat Feb 08 15:55:00 EST 2019Aug 14 15:54:00 EST 2020 BENADRYL ALLERGY (DIPHENHYDRAM INE HYDROCHLORIDE) 25 MG TABLET Sat Feb 08 15:55:00 EST 2019 [facility] Aug 14 15:54:00 EST 2020 BENADRYL ALLERGY (DIPHENHYDRAM INE HYDROCHLORIDE) 25 MG TABLET Sat Feb 08 15:55:00 EST 2019 [facility] Aug 14 15:54:00 EST 2020 CLARITIN (LORATADINE) [...] 600 MG TABLET, EXTENDED RELEASE Sat Feb 15:55:00 EST 2019Aug 14 15:54:00 EST 2020 [...] 15:55:00 EST 2019Aug 14 15:54:00 EST 2020 ORAJEL MOUTH SORE MEDICINE (BE NZALKONIUM CHLORIDE-BENZOCAINE/ZINC CHLORIDE) 0.02%-20%-0.1% GEL/JELLY Sat Feb 0 8 15:55:00 EST 2019Aug 14 15:54:00 EST 2019 PEPTO-BISMOL (BISMUTH SUBSALICYLATE) 262 MG/ 15 ML SUSPENSION Sat Feb 08 15:55:00 EST 2019Aug 14 15:54 :00 EST 2019 PEPCID (FAMOTIDINE) 40 MG TABLET Sat Feb 08 15:55:00 2019Aug 14 15:54:00 2019 TRIPLE ANTIBIOTIC OINTMENT 40 0UNITS/1GM-3.5MG/1GM-5000UNITS/1GM OINTMENT [...] We d Feb 08:00:00 EST 2020 Wed Mar 07:59:00 EST 2020 HYDROXYZINE HCL 25 MG TABLET Wed Feb 12:24:00 EST 2020 Mon Feb 10 12:23:00 EST 2020 ZOFRAN (ONDANSETRON) 4 MG TABLET, DISINTEGRATING Wed Feb 12:24:00 EST 2020 Mon Feb 10 12:23:00 EST 2020 CATAPRES (CLONIDINE HYDROCHLORIDE) 0.1 MG TABLET Wed Feb 05 12:24:00 2019 Mon Feb 10 12:23:00 EST 2019 NARCAN (NALOXONE HCL) 4 MG/0.1 ML SPRAY SatJul 15 12::2019 Feb 19 12:: EST 2019 XOPENEX (LEVALBUTEROL HYDROCHLORIDE) 1.25 MG /3 ML SOLUTION SatJul 15 12:24:00 EST 2019Aug 11 12: :00 EST 2019 TRIPLE ANTIBIOTIC OINTMENT 40 0UNITS/1GM-3.5MG/1GM-5000UNITS/1GM OINTMENT SatJul 15 12:24:00 2019 We d Aug 11 12::00 2019 PEPCID (FAMOTIDINE) 40 MG TABLET SatJul 15 12::2019Aug 11 12::00 2019 PEPTO-BISMOL (BISMUTH SUBSALICYLATE) 262 MG/ 15 ML SUSPENSION SatJul 15 12::2019Aug 11 12:23 :00 EST 2019 ORAJEL MOUTH SORE MEDICINE (BE NZALKONIUM CHLORIDE-BENZOCAINE/ZINC CHLORIDE) 0.02%-20%-0.1% GEL/JELLY Sat 0 5 12::2019Aug 11 12::00 EST 2019 MYLANTA (ALUMINUM HYDROXIDE-MA GNESIUM HYDROXIDE-SIMETHICONE) 200MG/5 ML-200MG/5 ML-20MG/5 ML SUSPENSION SatJul 15 12:24:2019Aug 11 12:23:00 EST 2019 MULTIVITAMIN TABLET SatJul 15 12:24:2019Aug 11 12:23:00 EST 2019 MILK OF MAGNESIA 400 MG/5 ML SOLUTION SatJul 15 12:24:00 2019Aug 11 12::00 EST 2019 MELATONIN 5 MG CAPSULE SatJul 15 12:24:00 2019Aug 11 12:23:00 EST 2019 IMODIUM A-D (LOPERAMIDE HYDROC HLORIDE) 2 MG CAPSULE, LIQUID FILLED SatJul 15 12:24:00 EST 2019 We d Aug 11 12:23:00 EST [...] SatJul 15 12:24:00 2019Aug 11 12:23 :00 2019 CLARITIN (LORATADINE) 10 MG TABLET SatJul 15 12:24:00 2019Aug 11 12:23:00 2019 BENADRYL ALLERGY (DIPHENHYDRAM INE HYDROCHLORIDE) 25 MG TABLET SatJul 15 12:24:00 2019Aug 11 12:23:00 2019 BENADRYL ALLERGY (DIPHENHYDRAM INE HYDROCHLORIDE) 25 MG TABLET SatJul 15 12:24:00 2019Aug 11 12:23:00 EST 2019 TUMS (CALCIUM CARBONATE) 500 MG [...] CHLORIDE-BENZOCAINE/ZINC CHLORIDE) 0.02%-20%-0.1% GEL/JELLY Fri Jun 10 08:04:00 EST 2020 Fri Feb 14 08:03:00 EST 2020 MYLANTA (ALUMINUM HYDROXIDE-MA GNESIUM HYDROXIDE-SIMETHICONE) 200MG/5 ML-200MG/5 ML-20MG/5 ML SUSPENSION SatJun 26 08:04:00 EST 2020 Fri Feb 14 08:03:00 EST 2020 MULTIVITAMIN TABLET SatJun 26 08:04:00 EST 2020 Fri Feb 14 08:03:00 EST 2020 MILK OF MAGNESIA 400 MG/5 ML SOLUTION SatJun 26 08:04:00 EST 2020 Fri Feb 14 08:03:00 EST 2020 MELATONIN 5 MG CAPSULE SatJun 26 08:04:00 EST 2019 Fri Feb [...] 2020 Fr i Feb 14 08:03:00 EST 2019 [...] MG TABLET Jie Jun 25 08:00:00 EST 2020 Fri Jun 26 07:59:00 EST 2019 SUBOXONE (BUPRENORPHINE-NALOXONE) 4MG-1MG FILM Jie Jun 25 08:00:00 2019Jul 02 07:59:00 2019 SUBOXONE (BUPRENORPHINE-NALOXONE) 4MG-1MG FILM SatJun 25 08:00:00 2019Jun 26 07:59:00 2019 ADVAIR DISKUS 250/50 (FLUTICAS ONE PROPIONATE-SALMETEROL XINAFOATE) 0.25MG/1 ACTUATION-0.05MG/1 ACTUATION DISK Jun 25 08:00:00 2019Jul 23 07:59:00 2019 PROAIR HFA (ALBUTEROL SULFATE) 0.09 MG/1 ACTUATION SUSPENSION SatJun 25 08:00:00 2019 u Jul 23 07:59:00 2019 NICOTINE 14 MG/24 HR PATCH, EXTENDED RELEASE SatJun 25 08:00:00 2019Jul 23 07:59:00 2019 Gabapentin 300 MG CAP Take two (2) capsules by mouth three times a day SatDec 22 00:00:00 2018 [facility] 00:00 :00 2018 Prazosin HCl 1 MG CAP Take one (1) capsule by mouth at bedtime SatDec 22 00:00:00 2018 [facility] Sep 00:00 :00 2018 traZODone hydrochloride 100 MG TAB Take one (1) or two (2) tablets by mouth at bedtime, as needed. SatDec 22 00:00:00 2018 [facility] Sep 00:00:00 2018 Topamax 25 MG CAP Take one (1) caps ule by mouth twice a day SatDec 22 00:00:00 2018 [facility] Sep 00:00 :00 2018 Prazosin HCl 5 MG CAP Take one (1) capsule by mouth at bedtime SatDec 22 00:00:00 2018 [facility] Sep 00:00 :00 2018 hydrOXYzine Pamoate 50 MG CAP Take one (1) capsule by mouth twice a day, as needed SatDec 22 00:00:00 2018 [facility] Sep 00:00:00 2018 hydrOXYzine Pamoate 50 [...] twice a day SatNov 24 00:00:00 2018Dec 22:00 :00 2018 Gabapentin 300 MG CAP Take two (2) capsules by mouth four times a day SatNov 24 00:00:00 2018Dec 22:00 :00 2018 Prazosin HCl 5 MG CAP Take one (1) capsule by mouth at bedtime SatNov 24 00:00:00 2018Dec 22:00 :00 [address] one [...] mouth at bedtime SatSep 24 00:00:00 2018October 23:00 :00 2018 Prazosin HCl 5 MG CAP Take one (1) capsule by mouth at bedtime SatSep 24 00:00:00 2018October 23:00 :00 2018 Wellbutrin XL 150 MG T24 Take one ( 1) tablet by mouth twice a day SatSep 24:00:00 2018October 23:00 :00 2018 Gabapentin 300 MG CAP Take two (2) capsules by mouth four times a day SatSep 24 00:00:00 ED2018October 23 00:00 :00 ED2018 Topamax 25 MG CAP Take one (1) caps ule by mouth twice a day SatSep 24 00:00:00 ED2018October 23 00:00 :00 2018 hydrOXYzine Pamoate 50 MG CAP Take one (1) capsule by mouth three times a day, as needed SatSep 24 00:00:00 2018October 23 00:00:00 ED2018 TRAZODONE HYDROCHLORIDE 100 MG TABLET SatSep 23 17:10:00 ED2018October 21 17:09:00 2018 TRAZODONE HYDROCHLORIDE 100 MG TABLET SatSep 23 17:09:00 2018October 21 17:08:00 2018 ADVAIR DISKUS 250/50 (FLUTICAS ONE PROPIONATE-SALMETEROL XINAFOATE) 0.25MG/1 ACTUATION-0.05MG/1 ACTUATION DISK Sep 23 09:00:00 2018October 21 08:59:00 ED2018 SUBOXONE (BUPRENORPHINE-NALOXONE) 12MG-3MG FILM SatSep 23 09:00:00 2018Oct 07 08:59:00 ED2018 SUBOXONE (BUPRENORPHINE-NALOXONE) 12MG-3MG FILM SatSep 22 11:00:00 ED2018Oct 06 10:59:00 ED2018 NICOTINE 14 MG/24 HR PATCH, EXTENDED RELEASE SatSep 15 09:00:00 2018October 13 08:59:00 2018 TOPIRAMATE 50 MG TABLET SatSep 12 12:10:00 2018Sep 15 12:09:00 2018 PRAZOSIN HCL 1 MG CAPSULE SatSep 12 12:07:00 2018October 10 12:06:00 ED2018 HYDROXYZINE HCL 50 MG TABLET SatSep 12 12:05:00 2018October 10 12:04:00 ED2018 TRAZODONE HYDROCHLORIDE 100 MG TABLET SatSep 12 12:04:00 2018October 10 12:03:00 2018 BUPROPION HCL 150 MG TABLET, EXTENDED RELEAS E, 24 HR SatSep 12 12:04:00 2018October 10 12:03 :00 ED2018 GABAPENTIN 300 MG CAPSULE SatSep 12 12:04:00 [...] 08 09:00:00 EDT 2018Sep 13 08:59:00 EDT 2019 SUBOXONE (BUPRENORPHINE-NALOXONE) 12MG-3MG FILM SatSep 08 09:00:00 EDT 2018 15 08:59:00 EDT 2019 PRAZOSIN HCL 1 MG CAPSULE SatSep 08 12:12:00 EDT 2018Oct 06 12:11:00 EDT 2018 DICYCLOMINE HCL 20 MG TABLET SatSep 07 15:09:00 EDT 2018Oct 05 15:08:00 EDT 2019 MIRALAX (POLYETHYLENE GLYCOL 3 350) 17 GM/1 DOSE POWDER FOR SOLUTION SatSep 06 09:00:00 EDT 2018 u Sep 11 08:59:00 EDT 2018 MIRALAX (POLYETHYLENE GLYCOL 3 350) 17 GM/1 DOSE POWDER FOR SOLUTION SatSep 05 09:00:00 EDT 2018 Sa t Sep 06 08:59:00 EDT 2019 LINZESS (LINACLOTIDE) 290 MCG [...] 2019 Mo n Sep 08 08:59:00 EDT 2019 NICODERM CQ (NICOTINE) 21 MG/24 HR PATCH, EX TENDED RELEASE SatAug 30 09:00:00 EDT 2018 Sat Sep 27 08:59 :00 EDT 2018 SUBOXONE (BUPRENORPHINE-NALOXONE) 12MG-3MG FILM SatAug 29 09:00:00 EDT 2018Sep 12 08:59:00 EDT 2018 SUBOXONE (BUPRENORPHINE-NALOXONE) 12MG-3MG FILM Jie Aug 28 09:00:00 EDT 2018Aug 29 08:59:00 EDT [...] EDT 2018 We Sep 24 17:40:00 EDT 2018 ZANTAC (RANITIDINE HYDROCHLORIDE) 150 MG TABLET SatAug [...] EDT 2018Sep 24 17:40 :00 EDT 2018 CLARITIN (LORATADINE) 10 MG TABLET SatAug 27 [...] at bedtime SatSep 19 00:00:00 EDT 2017Sep 28:00 :00 EDT 2017 busPIRone HCl 15 MG TAB Take one (1 ) tablet by mouth twice a day SatSep 19 00:00:00 EDT 2017Sep 28:00 :00 EDT 2017 chlorproMAZINE HCl 25 MG TAB Take o ne (1) tablet by mouth four times a day SatSep 19 00:00:00 EDT 2017Sep 28 00:00:00 EDT 2017 hydrOXYzine HCl 25 MG TAB Take one (1) tablet by mouth every 6 hours SatJul 25 00:00:00 EST 2017Aug 03 00:00 :00 EST 2017 Problems Active Concerns * Opioid abuse * Code: 4459476 * Start Date: SatJun 10 11:00:00 EST [...] * Alcohol use disorder, severe * Code: 82249640 * Start Date: SatJun 24 07:00:00 2019 * Text: * Severe nicotine withdrawal * Code: 11702174 * Start Date: SatJun 24 07:00:00 2019 * Text: * Stimulant use disorder * Code: 372336261 * Start Date: SatJun 24 07:00:00 2019 * Text: * Synthetic cannabinoid dependence * Code: 842705089 * Start Date: SatJul 15 07:00:00 2019 * Text: * Opioid use disorder, severe, dependence * Code: 43036564 * Start Date: SatJul 15 07:00:00 2019 * Text: * Current every day smoker * Code: 106867404 * Start Date: SatJul 15 07:00:00 2019 * Text: * Bipolar disorder with psychotic features * Code: 40726377 * Start Date: SatSep 29 08:00:00 EDT [...] 2020 BP Position 2 Position SatDec 09 1 13:25:00 EDT 2020 Temperature 98.7 [DEGF] SatOctober [...] 12:05:00 EST 2020 SpO2 98 % Wed b 05 12:05 :00 EST 2020 Systolic 115 MM[HG] Wed b 05 1 2:05:00 EST 2020 Diastolic 66 MM[HG] Wed Feb 05 12:05:00 EST 2020 BP Position 2 Position Wed b 0 5 12:05:00 EST 2020 Temperature 98.1 [...] Position 2 Position SatJun 10 09:45:00 EST 2019 Height 4 9 ft SatJun 24 09: 45:00 EST 2019 Height 57 in SatJun 24 09: 45:00 EST 2019 Height 144.8 cm SatJun 24 09: 45:00 EST 2020 Weight Lbs 165 lbs SatJun 24 09:45:00 EST 2020 Weight Kgs 75 KG SatJun 24 09:45:00 EST 2020 BMI 35.7 % SatJun 24 09:45: 00 EST 2020 Temperature 98.0 [DEGF] [facility] Feb 07 12:39:00 EDT 2018 Temperature 36.7 SUSANA SatJan 10 12:39:00 EDT 2018 Heart Rate 69 /MIN SatFeb 07 12:39:00 EDT 2018 Respiration 14 /MIN SatJan 10 12:39:00 EDT 2018 SpO2 98 % SatFeb 07 12:39 :00 EDT 2018 Systolic 100 MM[HG] SatFeb 07 2:39:00 EDT 2018 Diastolic 59 MM[HG] [facility] Feb 07 12:39:00 EDT 2018
--- OUTSIDE RECORDS SUMMARY | 2021-03-23 20:17 | CCD ---
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 Name Role Phone Yaron Lobato AttendingPractitioner1 Peyton [...] severe CLINDAMYCIN (Allergy) SatJun 24 07:00:00 EST 2020 Hives Moderate to severe KETOROLAC (Allergy) SatJun 24 07:00:00 EST 2019 Hives Moderate METRONIDAZOLE (Allergy) SatJun 24 07:00:00 EST 2019 Headache (finding) Moderate NONSTEROIDAL ANTIINFLAMMATORY DRUG (Allergy) SatJun 24 07:00:00 EST 2020 Other or Unspecified Life threatening severity HYDROCORTISONE (Allergy) SatJun 24 07:00:00 EST 2020 Pruritic rash (disorder) Severe NUTS (Allergy) W ed Jun 24 07:00:00 EST 2020 RED DYE (Allergy) SatJun 24 07:00:00 EST 2020 Encounters Program Name Primary Diagnosis Admission Date/ Time Discharge Date/Time D Lo Evaluation Center Waiting SatJan 09 10:42:00 EDT 2017 [facility] Wait[facility] SatJul 10 16:04:00 EST 2018 [facility] Super[facility] Synthetic cannabinoid dependence Wed Jul 15 10:25:00 EST 2019Jul 18 14:14:00 EST 2020 [facility] SatOct 01 08:57:00 EDT 2019Nov 19 13:39:00 EDT 2020 [facility] SatSep 24 13:11:00 EDT 2018Mar 02 11:08:00 EDT 2018 [facility] SatJun 13 13:54:00 EST 2020Jun 27 17:13:00 EST 2020 [facility] Sat 02:02:00 EST 2019 [facility] SatSep 24 12:11:00 EDT 2018 [facility] Mon[facility] SatJan 12 09:36:00 EDT 2016 [facility] Wait[facility] SatAug 19 09:30:00 EDT 2018 [facility] SatJan 10 11:41:00 EDT 2016 [facility] Heroin use disorder, severe, on maintenance therapy, dependence SatAug 20 09:30:00 EDT 2019October 14 11:29:00 EDT 2019 [facility] Mon[facility] Synthetic cannabinoid dependence Sat Jul 18 14:16:00 EST 2019Jul 20 11:58:00 EST 2020 [facility] Heroin use disorder, moderate, dependence SatApr 04 10:25:00 EDT 2019Jan 05 11:15:00 EDT 2020 [facility] Drug abuse counseling and surveillance of drug abuser SatAug 03 08:19:00 EST 2019Feb 15 08:55:00 EDT 2019 [facility] SatOctober 08 11:40:00 EDT 2016 [facility] SatJan 08 10:39:00 EDT 2016 [facility] davey abinoid dependence SatDec 28 10:30:00 EDT 2020 [facility] SatSep 11 09:41:00 EDT 2019 [facility] Alcohol use disorder, severe SatJun 24 14:16:00 EST 2019 Sat Jun 27 13:25:00 EST 2019 [facility] Polysubstance abuse SatJun 24 09:10:00 EST 2019Aug 03 08:17:00 EST 2019 [facility] SatAug 27 14:15:00 EDT 2018 [facility] Severe opioid use disorder SatJul 20 11:59:00 EST 2019Aug 01 17:29:00 EST 2019 Immunizations No Known Immunizations Lab [...] EDT 2018 Methamphetamine DNR ng/mL Sat ug 28 14:04:00 EDT 2019 Confirmation Testing Performed at: DNR SatFeb 04 14:04:00 EDT 2019 COMMENT SatFeb 04 14 :04:00 EDT 2019 Barbiturates NEGATIVE CONFIRMED ng/mL SatFeb 04 14:04:00 EDT 2019 Amobarbital NEGATIVE ng/mL Sat A ug 28 14:04:00 EDT 2019 Butalbital NEGATIVE ng/mL Sat Au g 28 14:04:00 EDT 2019 Pentobarbital NEGATIVE ng/mL SatFeb 04 14:04:00 EDT 2018 Phenobarbital NEGATIVE ng/mL SatFeb 04 14:04:00 EDT 2019 Secobarbital NEGATIVE ng/mL SatFeb 04 14:04:00 EDT 2019 Confirmation Testing Performed at: DNR SatFeb 04 14:04:00 EDT 2019 COMMENT SatFeb 04 14 :04:00 EDT 2019 Benzodiazepines NEGATIVE ng/mL W ed Feb 04 14:04:00 EDT 2019 Alphahydroxyalprazolam DNR ng/mL SatFeb 04 14:04:00 EDT 2019 Alphahydroxymidazolam DNR ng/mL SatFeb 04 14:04:00 EDT 2018 Alphahydroxytriazolam DNR ng/mL SatFeb 04 14:04:00 EDT 2018 Aminoclonazepam DNR ng/mL Sat 14:04:00 EDT 2018 [...] CONFIRMED ng/ mL SatFeb 04 14:04:00 EDT 2018 Benzoylecgonine NEGATIVE ng/mL W Feb 04 14:04:00 [...] CONFIRMED ng/mL SatFeb 04 14:04:00 EDT 2019 Phencyclidine NEGATIVE ng/mL SatFeb 04 14:04:00 EDT 2018 Confirmation Testing Performed at: DNR SatFeb 04 14:04:00 EDT 2018 COMMENT SatFeb 04 14 :04:00 EDT 2018 Buprenorphine POSITIVE ng/mL SatFeb 04 14:04:00 EDT [...] 2020 Nordiazepam DNR ng/mL Sat Jun 10 15:16:00 EST 2020 Oxazepam DNR ng/mL Sat [...] 2020 Alcohol, Ethyl DNR mg/dL Sat Ja 15:16:00 EST 2020 Confirmation Testing Performed at: [...] ng/mL Sat Jun 10 8 15:16:00 EST 2019 Hydromorphone DNR ng/mL Sat Jun 27 15:16:00 EST 2019 Morphine DNR ng/mL Sat Jun 27 1 5:16:00 EST 2020 Norhydrocodone DNR ng/mL Sat Ja n 18 15:16:00 EST 2020 Confirmation Testing Performed at: DNR Sat Jun 27 15:16:00 EST 2020 COMMENT Sat Jun 27 15 :16:00 EST 2019 Buprenorphine NEGATIVE ng/mL Sat Jun 27 15:16:00 [...] 2020 CRYSTALS DNR /HPF Sun Jun 28 1 3:42:00 EST 2020 HYALINE CAST NONE SEEN /LPF Sun Jun 28 13:42:00 EST 2020 GRANULAR CAST DNR /LPF Sun Jun 28 13:42:00 EST 2020 CASTS DNR /LPF Sun Jun 28 13:4 2:00 EST 2020 YEAST DNR /HPF Sun Jun 28 13:4 2:00 EST 2020 COMMENTS DNR Sun Jun 28 1 3:42:00 EST 2020 NOTE DNR [...] DNR /LPF Jie Feb 06 07:1 6:00 2020 YEAST FEW /HPF Jie Jul 06 07:1 6:00 2020 COMMENTS DNR Jie b 06 0 7:16:00 2020 NOTE DNR Jie Jul 16 07:16 :00 2020 HIV AG/AB, 4TH GEN [...] QL, T MA Detected SatJul 31 11:33:00 2019 SURESWAB(R), MYCOPLASMA GENITALIUM,REALTIME PCR Not Detected SatJul 31 11:33:00 2019 ASSAY DETAILS See Note SatJul 31 11:33:00 2019 GLUCOSE 79 mg/dL SatJul 31 11 :33:00 2019 UREA NITROGEN (BUN) 11 mg/dL F Jul 31 11:33:00 2019 CREATININE 0.78 mg/dL SatJul 31 11:33:00 2019 eGFR NON-AFR. ITALIAN 101 mL/min/1.73m2 SatJul 31 11:33:00 2019 eGFR 117 mL/min/1.73m2 SatJul 31 11:33:00 2020 BUN/CREATININE RATIO NOT APPLICABLE (calc ) SatJul 31 11:33:00 2019 SODIUM 135 mmol/L SatJul 31 11: 33:00 2019 POTASSIUM 4.8 mmol/L SatJul 31 11:33:00 2020 CHLORIDE 102 mmol/L SatJul 31 1 1:33:00 2020 CARBON DIOXIDE 26 mmol/L Sat 11:33:00 EST 2020 CALCIUM 9.0 mg/dL Sat Feb 11 :33:00 EST 2020 PROTEIN, TOTAL 6.4 g/dL Sat Fe b 11:33:00 EST 2020 ALBUMIN 3.6 g/dL Sat Feb 11 :33:00 EST 2020 GLOBULIN 2.8 g/dL (calc) Sat Feb 11:33:00 EST 2020 ALBUMIN/GLOBULIN RATIO 1.3 (calc) Satb 11:33:00 EST 2020 BILIRUBIN, TOTAL 0.3 mg/dL Sat Feb 11:33:00 EST 2020 ALKALINE PHOSPHATASE 71 U/L Satb 11:33:00 EST 2020 AST 19 U/L Sat Feb 11:33: 00 EST 2020 ALT 19 U/L Sat Feb 11:33: 00 2020 WHITE BLOOD CELL COUNT 9.0 Thousand/uL SatJul 31 11:33:00 2020 RED BLOOD CELL COUNT 4.58 Million/uL Satb 11:33:00 EST 2020 HEMOGLOBIN 14.7 g/dL Satb 11:33:00 EST 2020 HEMATOCRIT 43.1 % SatJul 31 11:33:00 EST 2020 MCV 94.1 fL Sat Feb 11:33: 00 EST 2020 MCH 32.1 pg Satb 11:33: 00 EST 2020 MCHC 34.1 g/dL SatJul 31 11:33 :00 EST 2020 RDW 13.6 % SatJul 31 11:33: 00 EST 2020 PLATELET COUNT 284 Thousand/uL F Jul 31 11:33:00 EST 2020 MPV 11.4 fL Sat Feb 11:33: 00 EST 2020 ABSOLUTE NEUTROPHILS 5724 cells/uL Satb 11:33:00 EST 2020 ABSOLUTE BAND NEUTROPHILS DNR cells/uL Satb 11:33:00 EST 2020 ABSOLUTE METAMYELOCYTES DNR cells/uL Sat Feb 11:33:00 EST 2020 ABSOLUTE MYELOCYTES DNR cells/uL Sat Feb 11:33:00 EST 2020 ABSOLUTE PROMYELOCYTES DNR cells/uL Satb 11:33:00 EST 2020 ABSOLUTE LYMPHOCYTES 2682 cells/uL [...] NEUTROPHILS DNR % Sat Feb 21 11:33:00 EST 2020 METAMYELOCYTES DNR % Fri Fe b 21 11:33:00 EST 2020 MYELOCYTES DNR % Fri Feb 21 11:33:00 EST 2020 PROMYELOCYTES DNR % Sat Feb 21 11:33:00 2020 LYMPHOCYTES 29.8 % Fri Feb 2 1 11:33:00 EST 2020 REACTIVE LYMPHOCYTES DNR % Sat Feb 21 11:33:00 2020 MONOCYTES 5.1 % Sat Feb 11:33:00 2020 EOSINOPHILS 1.1 % Fri Feb 2 1 11:33:00 EST 2020 BASOPHILS 0.4 % Sat Feb 21 11:33:00 2020 BLASTS DNR % Sat Feb 11: 33:00 2019 NUCLEATED RBC DNR /100 WBC Fri F eb 21 11:33:00 2019 COMMENT(S) DNR Satb 11:33:00 2019 [...] TIME PCR <15 NOT DETECTED IU/mL SatJul 31 11:33:00 EST 2020 HCV RNA, QUANTITATIVE REAL [...] 0 6:57:00 EST 2020 SODIUM 138 mmol/L Sat 03 23: 32:00 EST 2020 POTASSIUM 4.2 mmol/L Sat 03 23:32:00 EST 2020 CHLORIDE 106 mmol/L Sat 03 2 3:32:00 EST 2020 CARBON DIOXIDE 23 mmol/L Sat:32:00 2019 CREATININE, RANDOM URINE 104 mg/dL SatAug 10:32:00 2019 ALBUMIN, URINE 92.9 mg/dL :32:00 2019 ALBUMIN/CREATININE RATIO, RANDOM URINE 893 mcg/mg creat SatAug 10:32:00 2019 CREATININE 0.71 mg/dL SatAug 10:32:00 2019 eGFR NON-AFR. ITALIAN 113 mL/min/1.73m2 SatAug 1032:00 2019 eGFR 132 mL/min/1.73m2 SatAug 10:32:00 2019 HEMOGLOBIN 13.2 g/dL SatAug 10:32:00 2019 PARATHYROID HORMONE, INTACT 34 pg/mL SatAug 10:32:00 2019 CALCIUM 8.8 mg/dL SatAug 10 :32:00 2019 PHOSPHATE ( PHOSPHORUS) 4.3 mg/dL SatAug 10:32:00 2019 VITAMIN D,25-OH,TOTAL,IA 19 ng/mL SatAug 10:32:00 2019 PROTEIN, TOTAL 6.8 g/dL :32:00 2019 ALBUMIN 3.7 g/dL SatAug 1032:00 2019 GLOBULIN 3.1 g/dL (calc) SatAug 10:32:00 2019 ALBUMIN/GLOBULIN RATIO 1.2 (calc) SatAug 10:32:00 2019 BILIRUBIN, TOTAL 0.2 mg/dL SatAug 10:32:00 2019 BILIRUBIN, DIRECT 0.0 mg/dL SatAug 1032:00 2019 BILIRUBIN, INDIRECT 0.2 mg/dL (calc) SatAug 10:32:00 2019 ALKALINE PHOSPHATASE 78 U/L SatAug 10:32:00 2019 AST 37 U/L SatAug 10:32: 00 2019 ALT 35 U/L SatAug 10:32: 00 2019 HEPATITIS C VIRAL RNA GENOTYPE, LIPA(R) Not Detected SatAug 10 23:32:00 2019 COLOR TNP SatAug 10 23:3 2:00 2019 APPEARANCE DNR Tue Mar 03 23:32:00 EST 2020 SPECIFIC GRAVITY DNR SatAug [...] 23:32 :00 EST 2020 RDW 13.3 % Sat 03 23:32: 00 EST 2020 PLATELET COUNT 364 [...] EST 2020 ABSOLUTE BASOPHILS 37 cells/uL T aug 03 23:32:00 EST 2020 ABSOLUTE BLASTS DNR cells/uL [...] 03 23:32:00 EST 2020 LYMPHOCYTES 33.9 % e Aug 0 3 23:32:00 EST 2020 REACTIVE LYMPHOCYTES DNR % e Aug 03 23:32:00 EST 2020 MONOCYTES 4.9 % Sat 03 23:32:00 EST 2020 EOSINOPHILS 3.4 % e Aug 0 3 23:32:00 EST 2020 BASOPHILS 0.4 [...] EST 2020 Alphahydroxymidazolam DNR ng/mL Fri Feb 12:48:00 EST 2020 Alphahydroxytriazolam DNR ng/mL Fri [...] 2020 Benzodiazepines NEGATIVE ng/mL S un Aug 15 14:55:00 EDT 2020 Alphahydroxyalprazolam DNR ng/mL SatAug 22 14:55:00 EDT 2019 Alphahydroxymidazolam DNR ng/mL Sun Mar 15 14:55:00 [...] ng/mL Sat Mar 21 12:48:00 EDT 2019 Alphahydroxytriazolam DNR ng/mL [...] ng/mL Sat Mar 21 12 :48:00 EDT 2020 Hydrocodone DNR ng/mL Sat Mar 2 1 [...] ng/mL Jie Sep 02 11:27:00 EDT 2020 Alphahydroxymidazolam DNR ng/mL Jie Sep 02 11:27:00 EDT 2019 Alphahydroxytriazolam DNR ng/mL Jie Sep 02 11:27:00 EDT 2019 Aminoclonazepam DNR ng/mL Jie M ar 26 11:27:00 EDT 2020 Hydroxyethylflurazepam DNR ng/mL Jie Sep 02 11:27:00 EDT 2020 Lorazepam DNR ng/mL Jie Sep 02 11:27:00 EDT 2020 Nordiazepam DNR ng/mL Jie Mar 2 6 11:27:00 EDT 2020 Oxazepam DNR ng/mL Jie Sep 02 1 1:27:00 EDT 2020 Temazepam DNR ng/mL Jie Sep 02 11:27:00 EDT 2019 Confirmation Testing Performed at: DNR Jie Sep 02 11:27:00 EDT 2019 COMMENT Jie Sep 02 11 :27:00 EDT 2020 Cocaine Metabolite NEGATIVE ng/mL Jie Sep 02 11:27:00 EDT 2019 Benzoylecgonine DNR ng/mL Jie M ar 26 [...] Jie Aug 2 6 11:27:00 EDT 2020 Hydromorphone DNR ng/mL Jie Sep 02 11:27:00 EDT 2019 Morphine DNR ng/mL Jie Sep 02 1 1:27:00 EDT 2019 Norhydrocodone DNR ng/mL Jie Ma r 26 11:27:00 EDT 2019 Confirmation Testing Performed at: DNR Jie Sep 02 11:27:00 EDT 2019 COMMENT Jie Sep 02 11 :27:00 EDT 2019 Buprenorphine Jie Sep 02 11:27:00 EDT 2020 Norbuprenorphine Jie Sep 02 11:27:00 EDT 2020 CREATININE, RANDOM URINE 15 mg/dL SatSep 17 01:48:00 EDT 2020 Fentanyl NEGATIVE ng/mL SatSep 17 01:48:00 EDT 2020 Norfentanyl NEGATIVE ng/mL Fri 01:48:00 EDT 2019 COMMENT SatSep 17 01 :48:00 EDT 2019 Benzodiazepines NEGATIVE ng/mL F ri Sep 17 01:48:00 EDT 2019 Alphahydroxyalprazolam DNR ng/mL SatSep 17 01:48:00 EDT 2020 Alphahydroxymidazolam DNR ng/mL SatSep 17 01:48:00 EDT 2019 Alphahydroxytriazolam DNR ng/mL SatSep 17 01:48:00 EDT 2019 Aminoclonazepam DNR ng/mL Sat A pr 10 01:48:00 EDT 2019 Hydroxyethylflurazepam DNR ng/mL SatSep 17 01:48:00 EDT 2019 Lorazepam DNR ng/mL SatSep 17 01:48:00 EDT 2019 Nordiazepam DNR ng/mL Fri Apr 1 0 01:48:00 EDT 2019 Oxazepam DNR ng/mL Sat 10 0 1:48:00 EDT 2019 Temazepam DNR ng/mL SatSep 17 01:48:00 EDT 2019 Confirmation Testing Performed at: DNR SatSep 17 01:48:00 EDT 2019 COMMENT SatSep 17 01 :48:00 EDT 2019 Cocaine Metabolite NEGATIVE ng/mL SatSep 17 01:48:00 EDT 2019 Benzoylecgonine DNR ng/mL Sat A pr 01:48:00 EDT 2019 Confirmation Testing Performed at: [...] Performed at: DNR SatSep 17 01:48:00 EDT 2020 COMMENT SatSep 17 01 :48:00 EDT 2020 Opiates NEGATIVE ng/mL Fri Apr 1 0 01:48:00 EDT 2019 Codeine DNR ng/mL SatSep 17 01 :48:00 EDT 2019 Hydrocodone DNR ng/mL Fri Apr 1 0 01:48:00 EDT 2019 Hydromorphone DNR ng/mL SatSep 17 01:48:00 EDT 2019 Morphine DNR ng/mL Fri Apr 10 0 1:48:00 EDT 2020 Norhydrocodone DNR ng/mL Fri Ap r 10 01:48:00 EDT 2019 Confirmation Testing Performed at: DNR SatSep 17 01:48:00 EDT 2019 COMMENT SatSep 17 01 :48:00 EDT 2019 Buprenorphine 18 ng/mL SatSep 17:48:00 EDT 2019 Norbuprenorphine 31 ng/mL SatSep 17:48:00 EDT 2019 COMMENT SatSep 17 [...] -7.00NegativeNegative m cg/mL SatOctober 15 15:17:08 EDT 2020 Validity Result VALIDVALIDVALID SatOctober 16 15:29:21 EDT [...] 0.230NegativeNegativ e ng/mL SatOctober 16 14:39:04 EDT 2019 Sufentanil 0.160NegativeNegative ng/mL SatOctober 16 14:39:04 EDT [...] 14:39:06 EDT 2020 Creatinine 204.1NORMALNORMAL mg/ dL [facility] Feb 03 14:38:10 EDT 2020 pH 6.3NORMALNORMAL Jie Feb 03 14:38:32 EDT 2020 Oxidants -17.00NegativeNegative mcg/mL [facility] Feb 03 14:36:48 EDT 2020 Validity Result VALIDVALIDVALID [facility] Feb 03 14:45:22 EDT 2020 Amphetamines 209.00NegativeNegative ng/mL [facility] Feb 03 14:33:53 EDT 2020 Barbiturates -15.00NegativeNegative ng/mL [facility] Feb 03 14:34:12 EDT 2020 Benzodiazepines -31.00Negative *Negative ng/mL [facility] Feb 03 14:34:21 EDT 2020 Buprenorphine 0.80NegativeNegative* ng/mL [facility] Feb 03 14:34:27 EDT 2020 Cocaine Metabolites 175.00Negati veNegative ng/mL [facility] Feb 03 14:35:00 EDT 2020 Cotinine 1671.00PRESUMPTIVE POSI TIVEPRESUMPTIVE POSITIVE ng/mL [facility] Feb 03 14:35:07 EDT 2020 EDDP -91.00NegativeNegative ng/m L [facility] Feb 03 14:35:14 EDT 2020 Ethyl Glucuronide 26.00Negative* Negative ng/mL [facility] Feb 03 14:35:21 EDT 2020 Ethyl Alcohol 7.00NegativeNegative* mg/dL [facility] Feb 03 14:35:46 EDT 2020 Fentanyl 0.100NegativeNegative n g/mL [facility] Feb 03 14:35:53 EDT 2020 Heroin (6-AM) -1.30NegativeNegative ng/mL SatFeb 03 14:35:59 EDT 2020 Methadone -37.00NegativeNegative ng/mL Jie Feb 03 14:36:13 EDT 2020 Opiates -32.00NegativeNegative n g/mL SatFeb 03 14:36:28 EDT 2020 Synthetic Opiates -13.00Negative Negative ng/mL SatFeb 03 14:37:06 EDT 2020 Phencyclidine -4.90NegativeNegative ng/mL Jie Feb 03 14:37:16 EDT 2020 Cannabinoids 7.80NegativeNegative * ng/mL Jie Feb 03 14:37:27 EDT 2020 Tramadol -18.00NegativeNegative ng/mL Jie Feb 03 14:37:51 EDT 2019 Tricyclics 16.00NegativeNegative ng/mL SatFeb 03 14:38:40 EDT 2020 Ecstasy (MDMA) -1.00NegativeNegativ e ng/mL SatFeb 03 14:38:49 EDT 2020 Buprenorphine 0.000Negative - In consistentNegative ng/mL SatFeb 04 11:55:39 EDT 2020 Norbuprenorphine 0.620Negative - InconsistentNegative ng/mL SatFeb 04 11:55:39 EDT 2020 Naloxone 0.000Negative - Inconsi stentNegative ng/mL SatFeb 04 11:55:39 EDT 2020 Creatinine 30.8NORMALNORMAL mg/d L SatApr 14 20:51:41 2019 pH 8.2NORMALNORMAL SatApr 14 20:51:41 2020 Oxidants -14.00NegativeNegative mcg/mL SatApr 14 20:51:41 2019 Validity Result VALIDVALIDVALID SatApr 14 21:00:28 2019 Amphetamines 62.00NegativeNegative* ng/mL SatApr 14 20:51:41 2019 Barbiturates 0.00NegativeNegative * ng/mL Jie Apr 14:51:2019 Benzodiazepines -3.00Negative Negative ng/mL Jie Apr 14:51:2019 Buprenorphine 43.40PRESUMPTIVE P OSITIVEPRESUMPTIVE POSITIVE ng/mL SatApr 14:51:2019 Cocaine Metabolites 7.00Negative Negative ng/mL Jie Apr 14:51:2019 Cotinine 763.00PRESUMPTIVE POSIT CHIARAPRESUMPTIVE POSITIVE ng/mL SatApr 14::2019 EDDP -34.00NegativeNegative ng/m L SatApr 14:51:2019 Ethyl Glucuronide -12.00Negative Negative ng/mL SatApr 14:51:2019 Ethyl Alcohol 1.00NegativeNegative* mg/dL SatApr 14:51:41 2019 Fentanyl 0.300NegativeNegative n g/mL SatApr 14:2019 Heroin (6-AM) 1.10NegativeNegative* ng/mL SatApr 14:51:41 2019 Methadone -11.00NegativeNegative ng/mL SatApr 14:51:2019 Opiates 0.00NegativeNegative ng/ mL SatApr 14:51:41 2019 Synthetic Opiates -16.00Negative Negative ng/mL SatApr 14:51:41 2019 Phencyclidine 11.70NegativeNegative ng/mL SatApr 14:51:41 2019 Cannabinoids -5.40NegativeNegative* ng/mL Jie Apr 14:51:41 2020 Tramadol 14.00NegativeNegative n g/mL SatApr 14 20:51:41 2019 Tricyclics 456.00NegativeNegative * ng/mL SatApr 14 20:51:41 2019 Ecstasy (MDMA) 6.00NegativeNegative ng/mL SatApr 14 20:51:41 2019 Buprenorphine 28.240Positive - C onsistentPOSITIVE ng/mL Sat Apr 16 14:02:52 2019 Norbuprenorphine 75.050Positive - ConsistentPOSITIVE ng/mL Sat Apr 16 14:02:52 2019 Naloxone 33.950Positive - Consis tentPOSITIVE ng/mL SatApr 16 14:02:52 2019 Creatinine 173.1NORMALNORMAL mg/ dL [...] 17:21:05 2019 Ethyl Glucuronide 42.00Negative* Negative ng/mL [facility] May 18 20:44:07 2019 Ethyl Alcohol -3.00NegativeNegative mg/dL SatMay 18 17:21:06 2019 Fentanyl 0.500NegativeNegative n g/mL SatMay 18:21:06 2019 Heroin (6-AM) 2.80NegativeNegative* ng/mL SatMay 18:21:06 2019 Methadone -15.00NegativeNegative ng/mL SatMay 18:21:06 2019 Opiates -36.00NegativeNegative n g/mL SatMay 18:21:06 2019 Synthetic Opiates -17.00Negative Negative ng/mL [facility] May 18 17:21:06 2019 Phencyclidine 23.00NegativeNegative ng/mL [facility] May 18 17:21:06 2019 Cannabinoids -16.40NegativeNegative ng/mL [facility] May 18 17:21:06 2019 Tramadol 37.00NegativeNegative n g/mL SatMay 18:21:06 2019 Tricyclics 594.00PRESUMPTIVE POS ITIVEPRESUMPTIVE POSITIVE ng/mL [facility] May 18 17:21:36 2019 Ecstasy (MDMA) 79.00NegativeNegativ [...] 2019 Naloxone 647.270Positive - Incon sistentPOSITIVE ng/mL Jie Jun 02 08:20:16 2019 Norfentanyl 0.280NegativeNegative * ng/mL [...] Amphetamines 299.00NegativeNegative ng/mL e Jul 12 19:41:14 EST 2020 Barbiturates -2.00NegativeNegative* ng/mL e Jul 12 19:41:14 EST 2020 Benzodiazepines 3.00NegativeNegativ e ng/mL SatJul 12 19:41:14 EST 2020 Buprenorphine 111.10PRESUMPTIVE POSITIVEPRESUMPTIVE POSITIVE ng/mL e Jul 12 19:41:14 EST 2020 Cocaine Metabolites -28.00Negati veNegative ng/mL e Jul 12 19:41:14 EST 2020 Cotinine 649.00PRESUMPTIVE POSIT CHIARAPRESUMPTIVE POSITIVE ng/mL SatJul 12 19:41:14 2020 EDDP -97.00NegativeNegative ng/m L SatJul 12 19:41:14 2020 Ethyl Glucuronide 151.00Negative Negative ng/mL SatJul 12 19:41:14 2020 Ethyl Alcohol 0.00NegativeNegative* mg/dL SatJul 12 19:41:14 2020 Fentanyl 1.100PRESUMPTIVE POSITI VEPRESUMPTIVE POSITIVE ng/mL SatJul 12 19:41:14 2020 Heroin (6-AM) -0.10NegativeNegative ng/mL e Jul 12 19:41:15 EST 2020 Methadone -10.00NegativeNegative ng/mL e Jul 12 19:41:15 2020 Opiates -28.00NegativeNegative n g/mL e Jul 12 19:41:15 2020 Synthetic Opiates -24.00Negative Negative ng/mL e Jul 12 19:41:15 2020 Phencyclidine 1.30NegativeNegative* ng/mL SatJul 12 19:41:15 2020 Cannabinoids -5.60NegativeNegative* ng/mL SatJul 12 19:41:15 2020 Tramadol 42.00NegativeNegative n g/mL SatJul 12 19:41:15 2020 Tricyclics 547.00PRESUMPTIVE POS ITIVEPRESUMPTIVE POSITIVE ng/mL SatJul 12 19:41:15 2020 Ecstasy (MDMA) 50.00NegativeNegativ e ng/mL Jul 12 19:41:16 EST 2020 Buprenorphine 216.190Positive - ConsistentPOSITIVE ng/mL [facility] Jul 13 11:17:06 2020 Norbuprenorphine 476.890Positive - ConsistentPOSITIVE ng/mL [facility] Jul 13 11:17:06 2020 Naloxone 629.130Positive - Incon sistentPOSITIVE ng/mL SatJul 13 11:17:06 2020 Norfentanyl 0.610NegativeNegative * ng/mL SatJul 13 11:17:06 2020 Fentanyl 0.040NegativeNegative n g/mL SatJul 13 11:17:06 2020 Carfentanil 0.040NegativeNegative * ng/mL SatJul 13 11:17:06 2020 Norcarfentanil 0.190NegativeNegativ e ng/mL SatJul 13 11:17:06 2020 Sufentanil 0.080NegativeNegative ng/mL SatJul 13 11:17:06 2020 Desmethyldoxepin 0.000Negative *Negative ng/mL SatJul 13 11:17:06 2020 Doxepin 0.000NegativeNegative ng /mL SatJul 13 11:17:06 EST 2021 Imipramine 3.450NegativeNegative ng/mL Sat Feb 11:17:06 EST 2020 Nortriptyline 6.610NegativeNegative ng/mL Sat Feb 11:17:06 2020 Amitriptyline 4.260NegativeNegative ng/mL Satb 11:17:06 2020 Clomipramine 12.060NegativeNegative ng/mL Sat Feb 11:17:06 2020 Desipramine 7.260NegativeNegative * ng/mL Satb 11:17:06 2020 Aripiprazole 0.000NegativeNegative* ng/mL Satb 10:13:02 2020 Chlorpromazine 0.160NegativeNegativ e ng/mL SatJul 13 10:13:02 2020 Clozapine 0.020NegativeNegative ng/mL Satb 10:13:02 2020 Fluphenazine 0.090NegativeNegative* ng/mL Satb 10:13:03 EST 2020 Haloperidol 0.040NegativeNegative * ng/mL Satb 10:13:03 2020 Lurasidone 0.280NegativeNegative ng/mL SatJul 13 10:13:03 EST 2020 Olanzapine 0.140NegativeNegative ng/mL Sat Feb 10:13:03 EST 2020 Promethazine 0.020NegativeNegative* ng/mL Sat Feb 10:13:03 EST 2020 Quetiapine 50Positive - Consiste ntPOSITIVE> ng/mL Satb 10:13:03 EST 2020 Risperidone 0.000NegativeNegative * ng/mL Satb 10:13:03 EST 2020 Trifluoperazine 0.230Negative Negative ng/mL SatJul 13 10:13:03 2020 Ziprasidone 0.000NegativeNegative * ng/mL [facility] Jul 13 10:13:03 2020 Bupropion 50Positive - Consisten tPOSITIVE> ng/mL SatJul 13 10:13:03 2020 Hydroxybupropion 50Positive - Co nsistentPOSITIVE> ng/mL [facility] Jul 13 10:13:03 2020 Trazodone 50Positive - Consisten tPOSITIVE> ng/mL [facility] Jul 13 10:13:03 2020 mCPP 50Positive - Consistent *POSITIVE> ng/mL [facility] Jul 13 10:13:03 2020 Creatinine 221.8NORMALNORMAL mg/ dL SatSep 15 17:16:19 EDT 2020 pH 6.1NORMALNORMAL Jie [...] Lurasidone 0.870NegativeNegative ng/mL Sat Sep 17 07:57:44 EDT 2020 Olanzapine 0.120NegativeNegative ng/mL [...] EDT 2020 SQUAMOUS EP 10-20 /HPF Jie Dennis 2 2 12:55:00 EDT 2020 TRANSITIONA DNR [...] Dec 29 12:55 :00 EDT 2020 E [id number] null GLUCOSE 92 mg/dL SatJan 04 11 :34:00 EDT 2020 UREA NITROG 27 mg/dL SatDec 09 11:34:00 EDT 2020 CREATININE 1.18 mg/dL SatJan 04 11:34:00 EDT 2020 eGFR NON-AF 61 mL/min/1.73m2 SatJan 04 11:34:00 EDT 2020 eGFR TEZ 71 mL/min/1.73m2 SatJan 04 11:34:00 EDT 2020 BUN/CREATIN 23 (calc) SatDec 09 8 11:34:00 EDT 2020 SODIUM 136 mmol/L SatJan [...] cells/uL SatJan 04 11:34:00 EDT 2020 ABSOLUTE [place] DNR cells/uL SatJan 04 11:34:00 EDT 2020 [...] W/ NON-REACTIVE Sat 11:34:00 EDT 2020 E [id number] null Medications Medication Directions Start Date End Date NICOTINE POLACRILEX 2 MG LOZENGE/BERTHA 2 Each TID: Three Times a Day ORAL SatJan 23 00:00:00 EDT 2020Feb 19 23:59:00 EDT 2020 CLONIDINE HCL 0.1 MG TABLET 1 Table t TID: Three Times a Day ORAL (Does not need BP assessed) SatJan 23 10:41:00 EDT 2020Feb 20 10:40:00 EDT 2020 HYDROXYZINE HCL 25 MG TABLET 2 Tabl et TID: Three Times a Day ORAL SatJan 23 12:00:00 EDT 2020Jan 30 11:59 :00 EDT 2020 MAGNESIUM CITRATE 1.75 GM/30 ML SOLUTION 296 Milliliter Daily As Needed ORAL SatJan 22 19:06:00 EDT 2020Jan 25 19:05:00 EDT 2020 MAGNESIUM CITRATE 1.75 GM/30 ML SOLUTION 296 Milliliter Daily As Needed ORAL SatJan 21 08:00:00 EDT 2020 Sun Jan 22 07:59:00 EDT 2020 SENNA 8.6 MG TABLET 1 Tablet BIDPRN : Twice A Day As Needed ORAL SatJan 20 06:00:00 EDT 2020Feb 17 05:59 :00 EDT 2020 SUBOXONE (BUPRENORPHINE-NALOXONE) 4MG-1MG F ILM 1 Film TID: Three Times a Day SUBLINGUAL SatJan 20 06:00:00 EDT 2020Jan 28 05:59:00 EDT 2020 MAGNESIUM CITRATE 1.75 GM/30 ML SOLUTION 296 Milliliter Daily As Needed ORAL SatJan 20 08:00:00 EDT 2020Jan 21 07:59:00 EDT 2020 SUBOXONE (BUPRENORPHINE-NALOXONE) 4MG-1MG F ILM 1 Film TID: Three Times a Day SUBLINGUAL SatJan 19 00:00:00 EDT 2020Jan 20 09:07:00 EDT 2020 ROPINIROLE HCL 0.25 MG TABLET 1 Tab let TID: Three Times a Day ORAL SatJan 18 06:00:00 ED2020Feb 15 05:59 :00 EDT 2020 SUBOXONE (BUPRENORPHINE-NALOXONE) 4MG-1MG F ILM 1 Film TID: Three Times a Day SUBLINGUAL SatJan 13 06:00:00 ED2020Jan 19 08:35:00 EDT 2020 SUBOXONE (BUPRENORPHINE-NALOXONE) 4MG-1MG F ILM 1 Film BID: Twice a Day SUBLINGUAL (EKIT) SatJan 12 06:00:00 ED2020Jan 13 05:59:00 EDT 2020 SUBOXONE (BUPRENORPHINE-NALOXONE) 4MG-1MG [...] MDD 1 Patch) SatJan 09 06:00:00 EDT 2020Feb 06 05:59:00 EDT 2020 SUBOXONE (BUPRENORPHINE-NALOXONE) 4MG-1MG [...] Daily ORAL SatDec 31 18:16:00 EDT 2020Jan 28 18:15:00 EDT 2021 NICOTINE 21 MG/24 HR PATCH, EXTENDED RELEASE 1 Patch Daily TRANSDERMAL SatDec 30 06:00:00 EDT 2020Jan 09 15:28 :00 EDT 2020 SUBOXONE (BUPRENORPHINE-NALOXONE) 4MG-1MG F ILM 1 Film BID: Twice a Day SUBLINGUAL SatDec 30 06:00:00 EDT 2020Jan 06 05:59:00 EDT 2020 BACTRIM DS (SULFAMETHOXAZOLE-T RIMETHOPRIM) 800MG-160MG TABLET 1 Tablet BID: Twice a Day ORAL SatDec 30:00:00 EDT 2020Jan 04 05:59:00 EDT 2020 STIMATE (DESMOPRESSIN ACETATE) 0.15 MG/1 ACT UATION SPRAY 1 [place] BIDPRN: Twice A Day As Needed NASAL (To be given immediately when she has nosebleeds) SatDec 30:00:00 EDT 2020Jan 27 05:59 :00 EDT 2020 LAMICTAL (LAMOTRIGINE) 25 MG TABLET 2 Tablet HS: At Bedtime ORAL SatDec 30:00:00 EDT 2020Jan 27 05:59 :00 EDT 2020 QUETIAPINE FUMARATE 25 MG TABLET 1 Tablet TID: Three Times a Day ORAL SatDec 30:00:00 EDT 2020Jan 27:59 :00 EDT 2020 SEROQUEL (QUETIAPINE FUMARATE) 100 MG TABLET 1 Tablet HS: At Bedtime ORAL (Takes with 25mg of Seroquel) SatDec 30:00:00 EDT 2020Jan 27 05:59:00 EDT 2020 SINGULAIR (MONTELUKAST SODIUM) 10 MG TABLET 1 Tablet Daily ORAL SatDec 30:00:00 EDT 2020Jan 27 05:59 :00 EDT 2020 VENLAFAXINE HCL 37.5 MG CAPSULE, EXTENDED RE LEASE 1 Capsule Daily ORAL SatDec 30:00:00 EDT 2020Jan 27 05:59 :00 EDT 2020 MIRALAX (POLYETHYLENE GLYCOL 3 350) 17 GM/1 DOSE POWDER FOR SOLUTION 17 gm Daily As Needed ORAL SatDec 30:00:00 EDT 2020Jan 27 05:59:00 EDT 2020 ROPINIROLE HCL 0.25 MG TABLET 1 Tab let TID: Three Times a Day ORAL SatDec 30:00:00 EDT 2020Jan 18 13:29 :00 EDT 2020 CLONIDINE HCL 0.1 MG TABLET 1 Table t TID: Three Times a Day ORAL (MDD 1mg. See clonidine 0.2mg) SatDec 30 06:00:00 EDT 2020Jan 23 10:43:00 EDT 2020 HYDROXYZINE HCL 25 MG TABLET 1 Tabl et TID: Three Times a Day ORAL SatDec 30 06:00:00 EDT 2020Jan 23 10:43 :00 EDT 2020 ACETAMINOPHEN 500 MG CAPSULE 2 caps ule [id number]: Every 6-8 Hours As Needed ORAL (MDD 8 Tabs) SatDec 28 16:02:00 EDT 2020Jan 25 16:01:00 ED2020 BENADRYL ALLERGY (DIPHENHYDRAM INE HYDROCHLORIDE) 25 MG TABLET 1 tablet TIDPRN: Three Times A Day As Needed ORAL SatDec 28 16:02:00 EDT 2020Jan 25 16:01:00 EDT 2020 COLACE (DOCUSATE SODIUM) 100 MG CAPSULE, LIQ UID FILLED 1 capsule Daily As Needed ORAL SatDec 28 16:02:00 EDT 2020Jan 25 16:01:00 EDT 2020 FIBER-LAX 625 MG TABLET 2 tablet [place] N: As Needed ORAL (MDD 4 Tabs) SatDec 28 16:02:00 EDT 2020Jan 25 16:01 :00 EDT 2020 MILK OF MAGNESIA 400 MG/5 ML SOLUTION 60 mL PRN: As Needed ORAL SatDec 28 16:02:00 ED2020Jan 25 16:01 :00 EDT 2020 MELATONIN 5 MG CAPSULE 1 capsule HS PRN: At Bedtime As Needed ORAL (MDD 5mg) SatDec 28 16:02:00 EDT 2020Jan 25 16:01:00 EDT 2020 MULTIVITAMIN TABLET 1 tablet Daily ORAL SatDec 28 16:02:00 ED2020Jan 25 16:01:00 EDT 2020 ORAJEL MOUTH SORE MEDICINE (BE NZALKONIUM CHLORIDE-BENZOCAINE/ZINC CHLORIDE) 0.02%-20%-0.1% GEL/JELLY 1 [place] PRN: As Needed OROMUCOSAL SatDec 28 16:02:00 EDT 2020Jan 25 16:01 :00 EDT 2020 PEPTO-BISMOL (BISMUTH SUBSALICYLATE) 262 MG/ 15 ML SUSPENSION 30 mL As Directed ORAL (Every 1 hour as needed. MDD 8 doses) SatDec 28 16:02:00 EDT 2020Jan 25 16:01:00 EDT 2020 TUMS (CALCIUM CARBONATE) 500 MG TABLET, CHEW ABLE 3 tablet PRN: As Needed ORAL (MDD 10 Tabs) SatDec 28 16:02:00 EDT 2020Jan 25 16:01:00 EDT 2020 NARCAN (NALOXONE HCL) 4 MG/0.1 ML SPRAY 1 spray(s) As Directed NASAL SatDec 28 16:02:00 EDT 2020Jan 25 16:01:00 EDT 2020 TOPAMAX (TOPIRAMATE) 25 MG TABLET 1 Tablet BID: Twice a Day ORAL SatDec 28 16:05:00 EDT 2020Jan 25 16:04 :00 EDT 2020 TRAZODONE HYDROCHLORIDE 150 MG TABLET 1 Tablet HS: At Bedtime ORAL SatDec 28 16:06:00 EDT 2020Jan 25 16:05 :00 EDT 2020 WELLBUTRIN XL (BUPROPION HYDRO CHLORIDE) 150 MG TABLET, EXTENDED RELEASE, 24 HR 1 Tablet Daily ORAL SatDec 28 16:11:00 EDT 2020Jan 25 16:10:00 EDT 2020 ANORO ELLIPTA (UMECLIDINIUM BR OMIDE-VILANTEROL TRIFENATATE) 62.5MCG/1 ACTUATION-25MCG/1 ACTUATION POWDER 1 Inhalation Daily INHALATION SatDec 28 16:15:00 EDT 2020Jan 25 16:14 :00 EDT 2020 LAMICTAL (LAMOTRIGINE) 25 MG [...] EDT 2020Jan 20 15:26 :00 EDT 2020 PRAZOSIN HCL 1 MG CAPSULE 1 Capsule HS: At Bedtime ORAL SatDec 28 16:07:00 EDT 2020Jan 23 10:37 :00 EDT 2020 cloNIDine HCl 0.1 MG TAB Take one ( 1) tablet by mouth three times a day, as needed SatDec 09 00:00:00 EDT 2020Feb 06 00:00:00 EDT 2020 Minipress 1 MG CAP Take one (1) cap robert by mouth daily SatDec 09 00:00:00 EDT 2020Feb 06:00 :00 EDT 2020 SEROquel 100 MG TAB Take one (1) ta blet by mouth at bedtime SatDec 09 00:00:00 EDT 2020Jan 07 00:00 :00 EDT 2020 Wellbutrin XL 150 MG T24 Take one ( 1) tablet by mouth daily SatDec 09 00:00:00 EDT 2020Feb 06 00:00 :00 EDT 2020 traZODone hydrochloride 150 MG TAB Take one (1) tablet by mouth at bedtime SatDec 09 00:00:00 EDT 2020Feb 06 00:00:00 EDT 2020 Topamax 25 MG CAP Take one (1) caps ule by mouth twice a day SatDec 09 00:00:00 EDT 2020Feb 06 00:00 :00 EDT 2020 Vistaril 25 MG CAP Take one (1) cap robert by mouth three times a day, as needed for anxiety SatDec 09:00:00 EDT 2020Feb 06 00:00:00 EDT 2021 SEROquel 25 MG TAB Take one (1) tab let by mouth three times a day SatDec 09 00:00:00 2020Feb 06 00:00 :00 2020 Effexor XR 37.5 MG CER Take one (1) capsule by mouth every morning SatDec 09 00:00:00 2020Jan 07 00:00 :00 2020 Minipress 5 MG CAP Take one (1) cap robert by mouth at bedtime SatDec 09 00:00:00 2020Feb 06 00:00 :00 [address] one (1) bran m under the tongue three times a day SatDec 09 00:00:00 2020Jan 07 00:00 :00 2020 SEROquel 100 MG TAB [...] 10 00:00:00 EDT 2020Nov 08 00:00 :00 EDT 2020 Wellbutrin XL 150 MG T24 Take one ( 1) tablet by mouth daily SatOctober 10 00:00:00 EDT 2020Dec 08 00:00 :00 EDT 2020 traZODone hydrochloride [...] 10 00:00:00 EDT 2020Dec 08 00:00 :00 ED2020 SEROquel 100 MG [...] 00:00:00 EST 2020Sep 09 00:00 :00 ED2020 cloNIDine HCl 0.1 MG TAB Take one [...] times a day SatMay 30 00:00:00 EST 2019Jun 13 00:00 :00 2020 cloNIDine HCl [...] by mouth at bedtime SatMay 30 00:00:00 EST 2019Jun 13 00:00:00 EST 2020 Wellbutrin XL [...] times a day SatMay 30 00:00:00 2019u Feb 00:00 :00 2020 lamoTRIgine 25 MG TAB Take two (2) tablets by mouth at bedtime SatMay 30 00:00:00 2019Jul 28 00:00 :00 2020 Buprenorphine-Naloxone 0.0 BRAN Aaron ce one (1) film under the tongue three times a day SatMay 17 00:00:00 2019May 30:00:00 2019 cloNIDine HCl 0.1 MG TAB Take one ( 1) tablet by mouth three times a day, as needed SatMay 17 00:00:00 2019May 30 00:00:00 2019 Minipress 1 MG CAP Take one (1) cap robert by mouth daily SatMay 17 00:00:00 2019May 30 00:00 :00 2019 traZODone hydrochloride 100 MG TAB Take one (1) tablet by mouth at bedtime SatMay 17 00:00:00 2019May 30:00:00 2019 Wellbutrin XL 150 MG T24 Take one ( 1) tablet by mouth daily SatMay 17 00:00:00 2019May 30 00:00 :00 2019 Vistaril 25 MG CAP Take one (1) cap robert by mouth three times a day, as needed for anxiety SatMay 17 00:00:00 2019May 30 00:00:00 2019 SEROquel 25 MG TAB Take one (1) tab let by mouth three times a day SatMay 17:00:00 2019May 30 00:00 :00 2019 lamoTRIgine 25 MG TAB Take two (2) tablets by mouth at bedtime SatMay 17 00:00:00 2019May 30 00:00 :00 2019 Minipress 5 MG CAP Take one (1) cap robert by mouth at bedtime SatMay 17 00:00:00 2019Jul 15 00:00 :2020 Buprenorphine-Naloxone 0.0 BRAN Aaron ce one (1) film under the tongue three times a day SatMay 03:00:00 2019May 17:00:00 2019 Buprenorphine-Naloxone 0.0 BRAN Aaron ce one (1) film under the tongue three times a day SatApr 25 00:00:00 2019May 02 00:00:00 2019 Buprenorphine-Naloxone 0.0 BRAN Aaron ce one (1) film under the tongue three times a day SatApr 19:00:00 2019Apr 25 00:00:00 2019 DDAVP 0.0 SPR [place] two (2) sprays in nostril(s) daily SatApr 12:00:00 2019Sep 09:00 :00 ED2020 cloNIDine HCl 0.1 MG TAB Take one ( 1) tablet by mouth three times a day, as needed SatApr 12:00:00 2019May 11:00:2019 rOPINIRole HCl 0.25 MG TAB Take one (1) tablet by mouth three times a day SatApr 12:00:00 2019Sep 09:00 :00 EDT 2020 Esomeprazole Magnesium 20 MG ECC Ta ke one (1) capsule by mouth daily SatApr 12 00:00:00 2019Sep 09:00 :00 ED2020 Ibuprofen 600 MG TAB Take one (1) t ablet by mouth twice a day, as needed for pain SatApr 12:00:00 2019Sep 09:00:00 EDT 2020 Anoro Ellipta 0.0 POW Inhale one ( 1) spray into the lungs daily SatApr 12 00:00:00 2019Sep 09:00 :00 EDT 2020 traZODone hydrochloride 100 MG TAB Take one (1) tablet by mouth at bedtime SatApr 12:00:00 2019May 11:00:00 2019 Vistaril 25 MG CAP Take one (1) cap robert by mouth three times a day, as needed for anxiety SatApr 12:00:00 2019May 11:00:00 2019 SEROquel 25 MG TAB Take [...] 10 00:00 :00 2020 Narcan 0.0 SPR [place] one (1) spray in nostril(s) daily SatApr 12 00:00:00 2019Sep 09 00:00 :00 ED2020 Minipress 5 MG [...] SatApr 07 00:00:00 2019Sep 09 00:00 :00 EDT 1 ZyPREXA 10 MG TAB Take one (1) tabl et by mouth twice a day SatApr 07 00:00:00 ED2019Sep 09:00 :00 [address] one (1) bran m under the tongue daily SatApr 05 00:00:00 2019Apr 07 00:00 :00 2019 Singulair 10 MG TAB Take one (1) ta blet by mouth daily SatApr 05 00:00:00 ED2019Apr 12 00:00 :00 2019 Suboxone 0.0 BRAN [...] mouth at bedtime SatNov 10 00:00:00 2019Jan 08:00 :00 [address] one [...] 03 00:00 :00 2019 Narcan 0.0 SPR [place] one (1) spray in nostril(s) daily SatNovember 03 00:00:00 2019Dec 02 00:00 :00 2019 ZyPREXA 10 MG TAB Take one (1) tabl et by mouth at bedtime SatNovember 03 00:00:00 2019Dec 02 00:00 :00 2019 SEROquel 100 MG TAB Take one (1) ta blet by mouth twice a day SatNovember 03 00:00:00 2019 Jie Dec 02 00:00 :00 2019 traZODone hydrochloride 100 MG TAB Take one (1) tablet by mouth at bedtime SatNovember 03 00:00:00 2019Sep 09 00:00:00 2020 Wellbutrin XL 150 MG T24 Take one ( 1) tablet by mouth daily SatNovember 03 00:00:00 2019 Jie Dec 02 00:00 :00 2019 Topamax 25 MG CAP Take one (1) caps ule by mouth twice a day SatNovember 03 00:00:00 2019 [facility] [[email or web address] Jan 01 00:00 :00 2019 traZODone hydrochloride 50 MG TAB T deb one (1) tablet by mouth at bedtime SatNovember 03 00:00:00 2019 [facility] Dec 02 00:00:00 2019 Zubsolv 0.0 TAB [...] 2019Sep 09 00:00:00 2020 DDAVP 0.0 SPR [place] two (2) sprays in nostril(s) daily SatApr [...] 09 00:00 :00 2020 Narcan 0.0 SPR [place] one (1) spray in nostril(s) daily SatApr [...] twice a day SatAug 05 00:00:00 EST 2019u Sep 02 00:00 :00 EDT 2020 traZODone hydrochloride 50 MG TAB T deb one (1) tablet by mouth at bedtime SatAug 05 00:00:00 EST 2019u Mar 00:00:00 EDT 2020 Prazosin HCl 1 MG CAP Take three (3 ) capsules by mouth at bedtime SatAug 05 00:00:00 EST 2019Aug 13 00:00 :00 EST 2019 Wellbutrin XL 150 MG T24 Take one ( 1) tablet by mouth daily SatAug 05 00:00:00 2019u Sep 02 00:00 :00 EDT 2020 Topamax 25 MG [...] 100 MG TABLET Fri Feb 08:00:00 EST 2020 Fri Mar 20 08:59:00 EDT 2020 SUBOXONE (BUPRENORPHINE-NALOXONE) 8MG-2MG FILM Fri Feb 21 08:00:00 EST 2020 Fri Feb 28 07:59:00 EST 2020 LAMOTRIGINE 25 MG TABLET Fri Feb 08:00:00 EST 2020 Fri Mar 20 08:59:00 [...] 2020 PRAZOSIN HCL 2 MG CAPSULE Tue b 11 21:00:00 2019 10 21:59:00 EDT 2019 SUBOXONE (BUPRENORPHINE-NALOXONE) 8MG-2MG FILM Mon Feb 10 23:24:00 2019 Jie Feb 20 23:23:00 EST 2019 TRAZODONE HYDROCHLORIDE 50 MG TABLET Mon Feb 10 23:24:00 2019 10 00:23:00 EDT 2019 NARCAN (NALOXONE HCL) 4 MG/0.1 ML SPRAY Mon Feb 10 23:24:00 2019 Mon Feb 24 23:23:00 EST 2019 VENTOLIN HFA (ALBUTEROL SULFAT E) 0.09 MG/1 ACTUATION SUSPENSION Sat Feb 10 23:24:00 2019Aug 17 00:23:00 EDT 2019 NARCAN (NALOXONE HCL) 4 MG/0.1 ML SPRAY Sat Feb 10 23:24:00 2019b 24 23:23:00 EST 2019 PEPCID (FAMOTIDINE) 40 MG TABLET Sat Feb 10 23:24:00 2019Aug 17 00:23:00 EDT 2019 ORAJEL MOUTH SORE MEDICINE (BE NZALKONIUM CHLORIDE-BENZOCAINE/ZINC CHLORIDE) 0.02%-20%-0.1% GEL/JELLY Mon Feb 1 0 23:24:00 2019Aug 17 00:23:00 EDT 2019 MYLANTA (ALUMINUM HYDROXIDE-MA GNESIUM HYDROXIDE-SIMETHICONE) 200MG/5 ML-200MG/5 ML-20MG/5 ML SUSPENSION Sat Feb 10 23:24:00 2019 10 00:23:00 EDT 2019 MULTIVITAMIN TABLET Sat Feb 10 23:24:00 2019 10 00:23:00 EDT 2020 MELATONIN 5 MG CAPSULE Sat Feb 10 23:24:00 2019 10 00:23:00 EDT 2020 ICY HOT (MENTHOL-METHYL SALICYLATE) 10%-30% CREAM Mon Feb 10 23:24:00 2019e Aug 10 00:23:00 EDT 2020 FIBER-LAX 625 MG TABLET Mon Feb 10 23:24:00 2019 10 00:23:00 EDT 2019 CLARITIN (LORATADINE) 10 MG TABLET Sat Feb 10 23:24: EST 2019 10 00:23:00 EDT 2020 BENADRYL ALLERGY (DIPHENHYDRAM INE HYDROCHLORIDE) 25 MG TABLET Sat Feb 10 :: EST 2019Aug 17 00:23:00 EDT 2019 TUMS (CALCIUM CARBONATE) 500 MG TABLET, CHEWABLE Mon Feb 10 :24:00 EST 2019 10 00:23:00 EDT 2019 GAS-X (SIMETHICONE) 80 MG TABLET, CHEWABLE Mon Feb 10 :24:2019Aug 17 00:23:00 EDT 2019 ACETAMINOPHEN (TYLENOL) 500 MG TABLET Sat Feb 10 ::00 EST 2019Aug 17 00:23:00 EDT 2019 NICOTINE POLACRILEX 4 MG LOZENGE/BERTHA Sat Feb 10 :24:00 EST 2019b 24 ::00 EST 2020 MONTELUKAST SODIUM 10 MG TABLET Sat Feb 10 ::2019Aug 17 00:23:00 EDT 2020 ADVAIR DISKUS 250/50 (FLUTICAS ONE PROPIONATE-SALMETEROL XINAFOATE) 0.25MG/1 ACTUATION-0.05MG/1 ACTUATION DISK Mo n Feb 10 ::2019Aug 17 00:23:00 EDT 2020 HYDROXYZINE HCL 25 MG TABLET Sat Feb 10 :24:00 EST 2020 Sat Feb 15 :23:00 EST 2020 ZOFRAN (ONDANSETRON) 4 MG TABLET, DISINTEGRATING Sat Feb 10 :24:00 EST 2020 Sat Feb 15 ::00 EST 2020 CATAPRES (CLONIDINE HYDROCHLORIDE) 0.1 MG TABLET Sat Feb 10 :24:00 EST 2020 Sat Feb 15 :23:00 EST 2020 XOPENEX (LEVALBUTEROL HYDROCHLORIDE) 1.25 MG /3 ML SOLUTION Sat Feb 10 :24:00 2019Aug 17 00:23 :00 EDT 2019 TRIPLE ANTIBIOTIC OINTMENT 40 0UNITS/1GM-3.5MG/1GM-5000UNITS/1GM OINTMENT Sat Feb 10 23:24:00 EST 2019 e Aug 17 00:23:00 EDT 2020 PEPTO-BISMOL (BISMUTH SUBSALICYLATE) 262 MG/ 15 ML SUSPENSION Sat 10 23:24:00 2019Aug 17 00:23 :00 EDT 2019 MILK OF MAGNESIA 400 MG/5 ML SOLUTION SatJul 20 23:24:00 2019Aug 17 00:23:00 EDT 2019 GUAIFENESIN 600 MG TABLET, EXTENDED RELEASE SatJul 20 23:24:00 2019Aug 17 00:23:00 EDT 2019 COLACE (DOCUSATE SODIUM) 100 MG CAPSULE, LIQ UID FILLED SatJul 20 23:24:00 2019Aug 17 00:23 :00 EDT 2019 BENADRYL ALLERGY (DIPHENHYDRAM INE HYDROCHLORIDE) 25 MG TABLET SatJul 20 23:24:00 2019Aug 17 00:23:00 EDT 2019 EUCERIN DAILY PROTECTION (LOTI ON, MULTI INGREDIENT) 2%-7.5%-4.5%-2.4%-4.8% LOTION SatJul 20 23:2 4:00 2019Aug 17 00:23:00 EDT 2019 EUCERIN DAILY PROTECTION (LOTI ON, MULTI INGREDIENT) 2%-7.5%-4.5%-2.4%-4.8% LOTION SatJul 19 10:0 5:00 2019 08 11:04:00 EDT 2019 TRAZODONE HYDROCHLORIDE 50 MG TABLET SatJul 19 10:03:00 2019 08 11:02:00 EDT 2019 ACETAMINOPHEN (TYLENOL) 500 MG TABLET SatJul 19 04:55:00 2019 08 05:54:00 EDT 2019 GAS-X (SIMETHICONE) 80 MG TABLET, CHEWABLE Sat Feb 08 15:55:00 2019Aug 14 15:54:00 EST 2019 TUMS (CALCIUM CARBONATE) 500 MG TABLET, CHEWABLE Sat Feb 08 15:55:00 2019Aug 14 15:54:00 EST 2019 BENADRYL ALLERGY (DIPHENHYDRAM INE HYDROCHLORIDE) 25 MG TABLET Sat Feb 08 15:55:00 EST 2019Aug 14 15:54:00 EST 2019 BENADRYL ALLERGY (DIPHENHYDRAM INE HYDROCHLORIDE) 25 MG TABLET Sat Feb 08 15:55:00 EST 2019Aug 14 15:54:00 EST 2020 CLARITIN (LORATADINE) 10 MG TABLET Sat Feb 08 15:55:00 EST 2019Aug 14 15:54:00 EST 2019 COLACE (DOCUSATE SODIUM) 100 MG CAPSULE, LIQ UID FILLED Sat b 08 15:55:00 EST 2019Aug 14 15:54 :00 EST 2019 FIBER-LAX 625 MG TABLET Sat Feb 08 15:55:00 EST 2019Aug 14 15:54:00 EST 2019 GUAIFENESIN 600 MG TABLET, EXTENDED RELEASE Sat b 15:55:00 EST 2019Aug 14 15:54:00 EST 2019 ICY HOT (MENTHOL-METHYL SALICYLATE) 10%-30% CREAM Sat b 08 15:55:00 EST 2019Aug 14 15:54:00 EST 2019 MELATONIN 5 MG CAPSULE Sat b 08 15:55:00 EST 2019Aug 14 15:54:00 EST 2019 MILK OF MAGNESIA 400 MG/5 ML SOLUTION Sat b 08 15:55:00 EST 2019Aug 14 15:54:00 EST 2019 MULTIVITAMIN TABLET Sat Jul 18 15:55:00 EST 2019Aug 14 15:54:00 EST 2020 MYLANTA (ALUMINUM HYDROXIDE-MA GNESIUM HYDROXIDE-SIMETHICONE) 200MG/5 ML-200MG/5 ML-20MG/5 ML SUSPENSION Sat b 08 15:55:00 EST 2019Aug 14 15:54:00 EST 2020 ORAJEL MOUTH SORE MEDICINE (BE NZALKONIUM CHLORIDE-BENZOCAINE/ZINC CHLORIDE) 0.02%-20%-0.1% GEL/JELLY Sat Feb 0 8 15:55:00 EST 2019Aug 14 15:54:00 EST 2020 PEPTO-BISMOL (BISMUTH SUBSALICYLATE) 262 MG/ 15 ML SUSPENSION Sat Feb 08 15:55:00 EST 2020 SatAug 14 15:54 :00 EST 2020 PEPCID (FAMOTIDINE) 40 MG TABLET Sat b 08 15:55:00 EST 2019Aug 14 15:54:00 EST 2020 TRIPLE ANTIBIOTIC OINTMENT 40 0UNITS/1GM-3.5MG/1GM-5000UNITS/1GM OINTMENT Sat b 08 15:55:00 EST 2019 Aug 14 15:54:00 EST 2020 XOPENEX (LEVALBUTEROL [...] EST 2020 SUBOXONE (BUPRENORPHINE-NALOXONE) 8MG-2MG FILM Jie Jul 06 08:00:00 EST 2020 Sun Feb 16 07:59:00 EST 2020 SUBOXONE (BUPRENORPHINE-NALOXONE) 4MG-1MG FILM SatJul 15 08:00:00 EST 2019 Jie Feb 06 07:59:00 EST 2020 VENTOLIN HFA (ALBUTEROL SULFAT E) 0.09 MG/1 ACTUATION SUSPENSION SatJul 15 08:00:00 2019 d Aug 11 07:59:00 EST 2020 ADVAIR DISKUS 250/50 (FLUTICAS ONE PROPIONATE-SALMETEROL XINAFOATE) 0.25MG/1 ACTUATION-0.05MG/1 ACTUATION DISK We Jul 15 08:00:00 2019Aug 11 07:59:00 EST 2019 HYDROXYZINE HCL 25 MG TABLET SatJul 15 12:24:00 2019 Mon Feb 10 12:23:00 EST 2020 ZOFRAN (ONDANSETRON) 4 MG TABLET, DISINTEGRATING SatJul 15 12:24:00 2019 Mon Feb 12:23:00 EST 2020 CATAPRES (CLONIDINE HYDROCHLORIDE) 0.1 MG TABLET SatJul 15 12:24:00 2019 Mon Feb 10 12:23:00 EST 2020 NARCAN (NALOXONE HCL) 4 MG/0.1 ML SPRAY SatJul 15 12:24:00 EST 2019 Wed Feb 12:23:00 EST 2020 XOPENEX (LEVALBUTEROL HYDROCHLORIDE) 1.25 MG /3 ML SOLUTION SatJul 15 12:24:00 2019Aug 11 12:23 :00 EST 2020 TRIPLE ANTIBIOTIC OINTMENT 40 0UNITS/1GM-3.5MG/1GM-5000UNITS/1GM OINTMENT SatJul 15 12:24:00 EST 2019 We d Aug 11 12:23:00 EST 2020 PEPCID (FAMOTIDINE) 40 MG TABLET SatJul 15 12:24:00 2019Aug 11 12:23:00 EST 2020 PEPTO-BISMOL (BISMUTH SUBSALICYLATE) 262 MG/ 15 ML SUSPENSION SatJul 15 12:24:00 2019Aug 11 12:23 :00 EST 2020 ORAJEL MOUTH SORE MEDICINE (BE NZALKONIUM CHLORIDE-BENZOCAINE/ZINC CHLORIDE) 0.02%-20%-0.1% GEL/JELLY Sat 0 5 12:24:00 2019Aug 11 12:23:00 EST 2019 MYLANTA (ALUMINUM HYDROXIDE-MA GNESIUM HYDROXIDE-SIMETHICONE) 200MG/5 ML-200MG/5 ML-20MG/5 ML SUSPENSION SatJul 15 12:24:00 2019Aug 11 12:23:00 EST 2019 MULTIVITAMIN TABLET SatJul 15 12:24:00 2019Aug 11 12:23:00 EST 2019 MILK OF MAGNESIA 400 MG/5 ML SOLUTION SatJul 15 12:24:00 2019Aug 11 12:23:00 2019 MELATONIN 5 MG CAPSULE SatJul 15 [...] 15 12:24:00 2019Aug 11 12:23:00 EST 2020 COLACE (DOCUSATE [...] GAS-X (SIMETHICONE) 80 MG TABLET, CHEWABLE SatJul 15:24:00 2019Aug 11 12:23:00 2019 ACETAMINOPHEN 500 MG CAPSULE [...] ML SOLUTION SatJun 26 08:04:00 2019 Fri Fe 08:03 :00 2019 TRIPLE ANTIBIOTIC OINTMENT 40 0UNITS/1GM-3.5MG/1GM-5000UNITS/1GM OINTMENT SatJun 26 08:04:00 2019 Fr i Feb 14 08:03:00 2020 PEPCID (FAMOTIDINE) 40 MG TABLET SatJun 26 08:04:00 2019 Fri Feb 08:03:00 2020 PEPTO-BISMOL (BISMUTH SUBSALICYLATE) 262 MG/ 15 ML SUSPENSION SatJun 26 08:04:00 2019 Fri Fe 08:03 :00 2020 ORAJEL MOUTH SORE MEDICINE (BE NZALKONIUM CHLORIDE-BENZOCAINE/ZINC CHLORIDE) 0.02%-20%-0.1% GEL/JELLY SatJun 10 7 08:04:00 2019 Fri Fe 14 08:03:00 EST 2020 MYLANTA (ALUMINUM HYDROXIDE-MA [...] 2020 GAS-X (SIMETHICONE) 80 MG TABLET, CHEWABLE SatJun 26 08:04:00 EST 2020 Fri Feb 14 08:03:00 EST 2020 ACETAMINOPHEN 500 MG CAPSULE SatJun 26 08:04:00 2019 Fri Jul 24 08:03:00 2019 VALIUM (DIAZEPAM) 5 MG TABLET SatJun 28 08:00:00 2019Jun 29 07:59:00 2019 VALIUM (DIAZEPAM) 5 MG TABLET Sat Jun 27 08:00:00 EST 2019Jun 28 07:59:00 EST 2019 VALIUM (DIAZEPAM) 5 MG TABLET Sat Jun 27 17:31:00 2019Jun 28 17:30:00 EST 2019 VALIUM (DIAZEPAM) 5 [...] three times a day SatDec 22 00:00:00 EDT 2018Feb 19 00:00 :00 ED2018 Prazosin HCl 1 MG CAP Take one (1) capsule by mouth at bedtime SatDec 22 00:00:00 2018 [facility] Sep 12 00:00 :00 2018 traZODone hydrochloride 100 MG TAB Take one (1) or two (2) tablets by mouth at bedtime, as needed. SatDec 22 00:00:00 2018 [facility] Sep 12 00:00:00 2018 Topamax 25 MG CAP Take one (1) caps ule by mouth twice a day SatDec 22 00:00:00 2018 [facility] Sep 12 00:00 :00 2018 Prazosin HCl 5 MG CAP Take one (1) capsule by mouth at bedtime SatDec 22 00:00:00 2018 [facility] Sep 12 00:00 :00 2018 hydrOXYzine Pamoate 50 MG CAP Take one (1) capsule by mouth twice a day, as needed SatDec 22:00:00 2018 [facility] Sep 00:00:00 2018 hydrOXYzine Pamoate 50 MG CAP Take one (1) capsule by mouth twice a day, as needed SatNov 24 00:00:00 2018Dec 22:00:00 2018 Prazosin HCl 1 MG CAP Take [...] twice a day SatSep 24 00:00:00 2018October 23:00 :00 2018 Gabapentin 300 MG [...] DISK Sep 23 09:00:00 2018October 21 08:59:00 EDT 2018 SUBOXONE (BUPRENORPHINE-NALOXONE) [...] 27 22:42:00 EDT 2018Sep 24 22:41:00 EDT 2019 PRAZOSIN HCL 1 MG CAPSULE SatAug 27 22:41:00 EDT 2018Sep 24 22:40:00 EDT 2019 CEPHALEXIN 500 MG TABLET SatAug 27 22:40:00 EDT 2018Sep 24 22:39:00 EDT 2019 DOXYCYCLINE HYCLATE 100 MG CAPSULE SatAug 27 [...] /3 ML SOLUTION SatAug 27 17:41:00 EDT 2019 SatSep 24 17:40 :00 EDT 2019 TRIPLE ANTIBIOTIC [...] 25 MG TABLET SatAug 27 17:41:00 EDT 2019 We d Sep 24 [...] one (1) capsule by mouth at bedtime Jie Sep 19 00:00:00 EDT 2017Sep 28 00:00 :00 ED2017 busPIRone HCl 15 MG TAB Take one (1 ) tablet by mouth twice a day SatSep 19 00:00:00 EDT 2017Sep 28 00:00 :00 EDT 2017 chlorproMAZINE HCl 25 MG TAB Take o ne (1) tablet by mouth four times a day SatSep 19 00:00:00 EDT 2017Sep 28 00:00:00 EDT 2017 hydrOXYzine HCl 25 MG TAB Take one (1) tablet by mouth every 6 hours [facility] Jul 25 00:00:00 EST 2017Aug 03 00:00 :00 EST 2017 Problems Active Concerns * Opioid abuse * Code: 3038710 * Start Date: SatJun 10 11:00:00 EST [...] * Alcohol use disorder, severe * Code: 60969583 * Start Date: SatJun 24 07:00:00 2019 * Text: * Severe nicotine withdrawal * Code: 77801069 * Start Date: SatJun 24 07:00:00 2019 * Text: * Stimulant use disorder * Code: [id number] * Start Date: SatJun 24 07:00:00 2019 * Text: * Synthetic cannabinoid dependence * Code: [id number] * Start Date: SatJul 15 07:00:00 2019 * Text: * Opioid use disorder, severe, dependence * Code: [id number] * Start Date: SatJul 15 07:00:00 2019 * Text: * Current every day smoker * Code: [id number] * Start Date: SatJul 15 07:00:00 2019 * Text: * Bipolar disorder with psychotic features * Code: [id number] * Start Date: SatSep 29 08:00:00 EDT 2019 * Text: Resolved Concerns * Problem Addiction/Abstinence/Withdrawal * Code: USER-Addiction * Start Date: SatJan 31 08:00:00 2016 * End Date: null * Problem Social/Interpersonal/Recovery Environment * Code: USER-Social * Start Date: SatJan 31 08:00:00 2016 * End Date: null * Problem Family * Code: USER-Family * Start Date: SatJan 31 08:00:00 2016 * End Date: null * Problem Biomedical * Code: USER-Biomedical * Start Date: SatJan 31 08:00:00 EDT 2016 * End Date: null * Problem Emotional/Behavioral/State of Change * Code: USER-Emotional * Start Date: SatJan 31 08:00:00 ED2016 * End Date: null Procedures No Known [...] 04 11:09:00 EDT 2020 Temperature 97.4 [DEGF] SatAug 03 08:56:00 EST 2020 Temperature 36.3 SUSANA Satb 2 4 08:56:00 EST 2019 Heart Rate 86 /MIN SatAug 03 08:56:00 EST 2020 Systolic 123 MM[HG] Satb 24 0 8:56:00 EST 2020 Diastolic 70 MM[HG] Satb 24 08:56:00 EST 2020 Height 4 9 ft Satb 24 08: 56:00 EST 2019 Height 57 in Satb 24 08: 56:00 EST 2019 Height 144.8 cm Satb 24 08: 56:00 EST 2020 Weight Lbs 180 lbs Sat 24 08:56:00 EST 2020 Weight Kgs 81.8 KG Satb 24 08:56:00 EST 2020 BMI 38.9 % Satb 24 08:56: 00 EST 2020 Pain Scale 0 Scale Sat 24 08:56:00 EST 2020 Temperature 97.6 [DEGF] [...] 0 3:01:00 EST 2020 Diastolic 66 MM[HG] SatJun 27 03:01:00 EST 2020 Heart Rate 74 /MIN [...] EST 2020 Respiration 16 /MIN SatJun 10 02:40:00 EST 2020 Systolic 106 MM[HG] SatJun [...] 09:45: 00 EST 2020 Temperature 98.0 [DEGF] Sat Aug 31 12:39:00 EDT 2018 Temperature 36.7 SUSANA SatJan 10 12:39:00 EDT 2018 Heart Rate 69 /MIN SatFeb 07 12:39:00 EDT 2018 Respiration 14 /MIN SatJan 10 12:39:00 EDT 2018 SpO2 98 % SatFeb 07 12:39 :00 EDT 2018 Systolic 100 MM[HG] SatFeb 07 2:39:00 EDT 2018 Diastolic 59 MM[HG] SatFeb 07 12:39:00 EDT 2018
--- OUTSIDE RECORDS SUMMARY | 2021-03-23 20:17 | CCD ---
Author Author AutogeneDENISHA claros Autogene rated Organization [facility] Address Unknown Phone Unavailable Care Team Providers Care Political Consultant Name Role Phone Yaron Lobato AttendingPractitioner1 Peyton [...] PCN (penicillin) (Allergy) SatJun 24 07:00:00 EST 2020 Hives Moderate to severe CLINDAMYCIN (Allergy) SatJun [...] Admission Date/ Time Discharge Date/Time [facility] Severe opioid use disorder SatJul 20 11:59:00 EST 2019 Sat Aug 01 17:29:00 EST 2020 [facility] Heroin use disorder, moderate, dependence SatApr 04 10:25:00 EDT 2020 Jie Jan 05 11:15:00 EDT 2020 [facility] SatJan 08 10:39:00 EDT 2016 [facility] SatJun 13 13:54:00 EST 2020Jun 27 17:13:00 EST 2020 [facility] Synthetic cannabinoid dependence SatJul 15 10:25:00 EST 2019 Sat Jul 18 14:14:00 EST 2019 [facility] Jie Jan 10 11:41:00 EDT 2017 [facility] SatJan 09 10:42:00 EDT 2017 [facility] SatOct 01 08:57:00 EDT 2019Nov 19 13:39:00 EDT 2019 [facility] SatSep 24 13:11:00 EDT 2018Mar 02 11:08:00 EDT 2018 [facility] Synthetic cannabinoid dependence Sat Jul 18 14:16:00 EST 2019Jul 20 11:58:00 EST 2019 [facility] SatSep 24 12:11:00 EDT 2018 [facility] SatOctober 08 11:40:00 EDT 2016 [facility] Sat Jan 12 09:36:00 EDT 2016 Lauren Vicente Wait[facility] SatSep 11 09:41:00 EDT 2018 [place] [facility] S[facility] davey abinoid dependence SatDec 28 10:30:00 EDT 2020 [facility] Polysubstance abuse Wed Luc 15 09:10:00 EST 2019Aug 03 08:17:00 EST 2019 [facility] Wed J an 15 02:02:00 EST 2019 [facility] Heroin use disorder, severe, on maintenance therapy, dependence SatAug 20 09:30:00 EDT 2019October 14 11:29:00 EDT 2019 [place] [facility] SatAug 19 09:30:00 EDT 2018 [facility] Alcohol use disorder, severe SatJun 24 14:16:00 EST 2019Jun 27 13:25:00 EST 2019 [facility] Drug abuse counseling and surveillance of drug abuser SatAug 03 08:19:00 EST 2019Feb 15 08:55:00 EDT 2019 [place] [facility] SatJul 10 16:04:00 EST 2018 [facility] [place] [facility] 14:15:00 EDT 2019 Immunizations No Known Immunizations Lab [...] 2019 COMMENT SatFeb 04 14 :04:00 EDT 2018 Barbiturates NEGATIVE CONFIRMED ng/mL SatFeb 04 14:04:00 [...] 2019 Aminoclonazepam DNR ng/mL Sat 14:04:00 EDT 2019 Hydroxyethylflurazepam DNR ng/mL SatFeb 04 14:04:00 EDT 2018 Lorazepam DNR ng/mL SatFeb 04 14:04:00 EDT 2018 Nordiazepam DNR ng/mL SatJan 09 8 14:04:00 EDT 2019 Oxazepam DNR ng/mL SatFeb 04 1 4:04:00 [...] 2020 Oxazepam DNR ng/mL Sat Jun 27 5:16:00 EST 2020 Temazepam DNR ng/mL Sat [...] 2020 Hydrocodone DNR ng/mL Sat Jun 10 8 [...] 13:42:00 EST 2020 GRANULAR CAST DNR /LPF SatJun 28 13:42:00 EST 2020 CASTS DNR /LPF [...] 6:00 2020 YEAST FEW /HPF Jie Jul 16 07:1 6:00 2020 COMMENTS DNR Jie Jul [...] mg/dL SatJul 31 11:33:00 2019 eGFR NON-AFR. BRAZILIAN 101 mL/min/1.73m2 SatJul 31 11:33:00 2019 eGFR 117 mL/min/1.73m2 SatJul 31 11:33:00 2020 BUN/CREATININE RATIO NOT APPLICABLE (calc ) SatJul 31 11:33:00 2019 SODIUM 135 mmol/L SatJul 31 11: 33:00 2019 POTASSIUM 4.8 mmol/L SatJul 31 11:33:00 2019 CHLORIDE 102 mmol/L SatJul 31 1 1:33:00 2020 CARBON DIOXIDE 26 mmol/L Sat 11:33:00 EST 2020 CALCIUM 9.0 mg/dL Sat Feb 11 :33:00 EST 2020 PROTEIN, TOTAL 6.4 g/dL Sat b 11:33:00 2019 ALBUMIN 3.6 g/dL Sat Fe 11 :33:00 EST 2020 GLOBULIN 2.8 g/dL (calc) SatJul 31 11:33:00 2020 ALBUMIN/GLOBULIN RATIO 1.3 (calc) SatJul 31 11:33:00 EST 2020 BILIRUBIN, TOTAL 0.3 mg/dL SatJul 31 11:33:00 EST 2020 ALKALINE PHOSPHATASE 71 U/L SatJul 31 11:33:00 EST 2020 AST 19 U/L SatJul 31 11:33: 00 EST 2020 ALT 19 U/L SatJul 31 11:33: 00 EST 2020 WHITE BLOOD CELL COUNT 9.0 Thousand/uL SatJul 31 11:33:00 2020 RED BLOOD CELL COUNT 4.58 Million/uL SatJul 31 11:33:00 EST 2020 HEMOGLOBIN 14.7 g/dL SatJul 31 11:33:00 EST 2020 HEMATOCRIT 43.1 % SatJul 31 11:33:00 EST 2020 MCV 94.1 fL SatJul 31 11:33: 00 EST 2020 MCH 32.1 pg SatJul 31 11:33: 00 EST 2020 MCHC 34.1 g/dL SatJul 31 11:33 :00 EST 2020 RDW 13.6 % SatJul 31 11:33: 00 EST 2020 PLATELET COUNT 284 Thousand/uL F Jul 31 11:33:00 EST 2020 MPV 11.4 fL SatJul 31 11:33: 00 EST 2020 ABSOLUTE NEUTROPHILS 5724 cells/uL SatJul 31 11:33:00 EST 2020 ABSOLUTE BAND NEUTROPHILS DNR cells/uL Satb 11:33:00 EST 2020 ABSOLUTE METAMYELOCYTES DNR cells/uL Satb 11:33:00 EST 2020 ABSOLUTE MYELOCYTES DNR cells/uL SatJul 31 11:33:00 EST 2020 ABSOLUTE PROMYELOCYTES DNR cells/uL Satb 11:33:00 EST 2020 ABSOLUTE LYMPHOCYTES 2682 cells/uL SatJul 31 11:33:00 EST 2020 ABSOLUTE MONOCYTES 459 cells/uL Satb 11:33:00 EST 2020 ABSOLUTE EOSINOPHILS 99 cells/uL Satb 11:33:00 EST 2020 ABSOLUTE BASOPHILS 36 cells/uL F ri Feb 21 11:33:00 EST 2020 ABSOLUTE BLASTS DNR cells/uL Fri Feb 21 11:33:00 2020 ABSOLUTE NUCLEATED RBC DNR cells/uL Sat [...] 1.1 % Fri Feb 2 1 11:33:00 2020 BASOPHILS 0.4 % Sat Feb 21 11:33:00 2019 BLASTS DNR % Sat Feb [...] 0 6:57:00 EST 2020 SODIUM 138 mmol/L e Aug 03 23: 32:00 EST 2020 POTASSIUM 4.2 mmol/L Sat 03 23:32:00 EST 2020 CHLORIDE 106 mmol/L SatAug 10 2 3:32:00 2019 CARBON DIOXIDE 23 mmol/L [facility] 23:32:00 2019 CREATININE, RANDOM URINE 104 mg/dL SatAug 10:32:00 2019 ALBUMIN, URINE 92.9 mg/dL [facility] r 08 30:32:00 2019 ALBUMIN/CREATININE RATIO, RANDOM URINE 893 mcg/mg creat SatAug 10:32:00 2019 CREATININE 0.71 mg/dL SatAug 10:32:00 2019 eGFR NON-AFR. BRAZILIAN 113 mL/min/1.73m2 SatAug 10:32:00 2019 eGFR 132 mL/min/1.73m2 SatAug 10:32:00 2019 HEMOGLOBIN 13.2 g/dL SatAug 10:32:00 2019 PARATHYROID HORMONE, INTACT 34 pg/mL SatAug 10:32:00 2019 CALCIUM 8.8 mg/dL SatAug 10 :32:00 2019 PHOSPHATE ( PHOSPHORUS) 4.3 mg/dL SatAug 10:32:00 2019 VITAMIN D,25-OH,TOTAL,IA 19 ng/mL SatAug 10:32:00 2019 PROTEIN, TOTAL 6.8 g/dL [facility] :32:00 2019 ALBUMIN 3.7 g/dL SatAug 10 [...] 03 23:32:00 EST 2020 NEUTROPHILS 57.4 % e Aug 0 3 23:32:00 EST 2020 BAND NEUTROPHILS [...] 2020 NUCLEATED RBC DNR /100 WBC e ar 03 23:32:00 EST 2020 COMMENT(S) DNR [...] EST 2020 HEPATITIS A IGM BORDERLINE Sat b 05:41:00 EST 2020 HEPATITIS A IGM BORDERLINE [...] 12:48:00 EST 2020 Alphahydroxyalprazolam DNR ng/mL Fri b 12:48:00 EST 2020 Alphahydroxymidazolam DNR ng/mL Fri Feb 12:48:00 EST 2020 Alphahydroxytriazolam DNR ng/mL Fri Feb 12:48:00 EST 2020 Aminoclonazepam DNR ng/mL Fri F eb 28 12:48:00 EST 2020 Hydroxyethylflurazepam DNR ng/mL Fri Feb 12:48:00 EST 2020 Lorazepam DNR ng/mL Fri [...] Sat Aug 21 12:48:00 EDT 2019 COMMENT [facility] Aug 21 12 :48:00 EDT 2019 CREATININE, [...] Fentanyl NEGATIVE ng/mL SatSep 17 01:48:00 EDT 2019 Norfentanyl NEGATIVE ng/mL Sat 01:48:00 EDT 2019 COMMENT SatSep 17 01 :48:00 EDT 2019 Benzodiazepines NEGATIVE ng/mL F ri Sep 17 01:48:00 EDT 2019 Alphahydroxyalprazolam DNR ng/mL SatSep 17 01:48:00 EDT 2020 Alphahydroxymidazolam DNR ng/mL SatSep 17 01:48:00 EDT 2019 Alphahydroxytriazolam DNR ng/mL SatSep 17 01:48:00 EDT 2019 Aminoclonazepam DNR ng/mL Sat A pr 10 :48:00 EDT 2019 Hydroxyethylflurazepam DNR ng/mL SatSep 17:48:00 EDT 2019 Lorazepam DNR ng/mL SatSep 17 01:48:00 EDT 2019 Nordiazepam DNR ng/mL Fri Apr 1 0 01:48:00 EDT 2019 Oxazepam DNR ng/mL Fri Sep 10 0 1:48:00 EDT 2019 Temazepam DNR ng/mL SatSep 17 01:48:00 EDT 2019 Confirmation Testing Performed at: DNR SatSep 17:48:00 EDT 2019 COMMENT SatSep 17 01 :48:00 EDT 2019 Cocaine Metabolite NEGATIVE ng/mL SatSep 17 01:48:00 EDT 2019 Benzoylecgonine DNR ng/mL Sat pr 01:48:00 EDT 2019 Confirmation Testing Performed [...] 2019 COMMENT SatSep 17 01 :48:00 EDT 2020 [...] 2020 pH 5.3NORMALNORMAL SatOctober 15 15:17:08 EDT 2019 [...] 2020 Ethyl Glucuronide 177.00Negative Negative ng/mL SatOctober 15:17:08 EDT 2020 Ethyl Alcohol -2.00NegativeNegative mg/dL SatOctober 15:17:08 EDT 2020 Fentanyl 1.500PRESUMPTIVE POSITI VEPRESUMPTIVE POSITIVE ng/mL SatOctober 15::08 EDT 2020 Heroin (6-AM) 0.30NegativeNegative* ng/mL SatOctober [...] 14:39:05 EDT 2020 Clomipramine 8.540NegativeNegative* ng/mL Sat May 09 14:39:05 EDT 2020 Desipramine 5.480NegativeNegative * ng/mL SatOctober 16 14:39:06 EDT 2020 Creatinine 204.1NORMALNORMAL mg/ dL Jie Feb 03 14:38:10 EDT 2020 pH 6.3NORMALNORMAL SatFeb 03 14:38:32 EDT 2020 Oxidants -17.00NegativeNegative mcg/mL [facility] Feb 03 14:36:48 EDT 2020 Validity Result VALIDVALIDVALID [facility] Feb 03 14:45:22 EDT 2020 Amphetamines 209.00NegativeNegative ng/mL [facility] Feb 03 14:33:53 EDT 2020 Barbiturates -15.00NegativeNegative ng/mL [facility] Feb 03 14:34:12 EDT 2020 Benzodiazepines -31.00Negative *Negative ng/mL [facility] Feb 03 14:34:21 EDT 2020 Buprenorphine 0.80NegativeNegative* ng/mL [facility] Feb 03 14:34:27 EDT 2020 Cocaine Metabolites 175.00Negati veNegative ng/mL [facility] Feb 03 14:35:00 EDT 2020 Cotinine 1671.00PRESUMPTIVE POSI TIVEPRESUMPTIVE POSITIVE ng/mL [facility] Feb 03 14:35:07 EDT 2020 EDDP -91.00NegativeNegative ng/m L [facility] Feb 03 14:35:14 EDT 2020 Ethyl Glucuronide 26.00Negative* Negative ng/mL [facility] Feb 03 14:35:21 EDT 2020 Ethyl Alcohol 7.00NegativeNegative* mg/dL [facility] Feb 03 14:35:46 EDT 2020 Fentanyl 0.100NegativeNegative n g/mL [facility] Feb 03 14:35:53 EDT 2020 Heroin (6-AM) -1.30NegativeNegative ng/mL [facility] Feb 03 14:35:59 ED2019 Methadone -37.00NegativeNegative ng/mL [facility] Feb 03 14:36:13 EDT 2020 Opiates -32.00NegativeNegative n g/mL Jie Feb 03 14:36:28 EDT 2020 Synthetic Opiates -13.00Negative Negative ng/mL Jie Feb 03 14:37:06 EDT 2020 Phencyclidine -4.90NegativeNegative ng/mL [facility] Feb 03 14:37:16 EDT 2020 Cannabinoids 7.80NegativeNegative * ng/mL [facility] Feb 03 14:37:27 EDT 2020 Tramadol -18.00NegativeNegative ng/mL [facility] Feb 03 14:37:51 ED2019 Tricyclics 16.00NegativeNegative ng/mL [facility] Feb 03 14:38:40 EDT 2019 Ecstasy (MDMA) -1.00NegativeNegativ e ng/mL SatFeb 03 14:38:49 EDT 2019 Buprenorphine 0.000Negative - In consistentNegative ng/mL SatFeb 04 11:55:39 ED2019 Norbuprenorphine 0.620Negative - InconsistentNegative ng/mL SatFeb 04 11:55:39 EDT 2019 Naloxone 0.000Negative - Inconsi stentNegative ng/mL SatFeb 04 11:55:39 ED 2020 Creatinine 30.8NORMALNORMAL mg/d L SatApr 14 20:51:41 2019 pH 8.2NORMALNORMAL SatApr 14 20:51:41 2019 Oxidants -14.00NegativeNegative mcg/mL SatApr 14 20:51:41 2019 Validity Result VALIDVALIDVALID SatApr 14 21:00:28 2019 Amphetamines 62.00NegativeNegative* ng/mL Jie Nov 10 27:51:41 2019 Barbiturates 0.00NegativeNegative * ng/mL Jie Nov 51:2019 Benzodiazepines -3.00Negative Negative ng/mL Jie Apr 14:51:2019 Buprenorphine 43.40PRESUMPTIVE P OSITIVEPRESUMPTIVE POSITIVE ng/mL Jie Nov 51:2019 Cocaine Metabolites 7.00Negative Negative ng/mL Jie Apr 14:51:2019 Cotinine 763.00PRESUMPTIVE POSIT CHIARAPRESUMPTIVE POSITIVE ng/mL Jie Apr 14:2019 EDDP -34.00NegativeNegative ng/m L Jie Apr 14:51:2019 Ethyl Glucuronide -12.00Negative Negative ng/mL SatApr 14:51:2019 Ethyl Alcohol 1.00NegativeNegative* mg/dL Jie Apr 14:51:2019 Fentanyl 0.300NegativeNegative n g/mL SatApr 14::2019 Heroin (6-AM) 1.10NegativeNegative* ng/mL SatApr 14:51:41 2019 Methadone -11.00NegativeNegative ng/mL Jie Apr 1451:2019 Opiates 0.00NegativeNegative ng/ mL Jie Nov 10 27:51:41 2019 Synthetic Opiates -16.00Negative Negative ng/mL Jie Nov 10 27:51:2019 Phencyclidine 11.70NegativeNegative ng/mL Jie Nov 10 27:51:2019 Cannabinoids -5.40NegativeNegative* ng/mL Jie Nov 10 27:51:41 2019 Tramadol 14.00NegativeNegative n g/mL SatApr 14 [...] 17:21:05 2019 Ethyl Glucuronide 42.00Negative* Negative ng/mL [facility] May 18 20:44:07 2019 Ethyl Alcohol -3.00NegativeNegative mg/dL [facility] May 18 17:21:06 2019 Fentanyl 0.500NegativeNegative n g/mL [facility] May 18 17:21:06 2019 Heroin (6-AM) 2.80NegativeNegative* ng/mL [facility] May 18 17:21:06 2019 Methadone -15.00NegativeNegative ng/mL [facility] May 18 17:21:06 2019 Opiates -36.00NegativeNegative n g/mL [facility] May 18 17:21:06 2019 Synthetic Opiates -17.00Negative Negative ng/mL [facility] May 18 17:21:06 2019 Phencyclidine 23.00NegativeNegative ng/mL [facility] May 18 17:21:06 2019 Cannabinoids -16.40NegativeNegative ng/mL [facility] May 18 17:21:06 2019 Tramadol 37.00NegativeNegative n g/mL [facility] May 18 17:21:06 2019 Tricyclics 594.00PRESUMPTIVE POS ITIVEPRESUMPTIVE POSITIVE ng/mL [facility] May 18 17:21:36 2019 Ecstasy (MDMA) 79.00NegativeNegativ e ng/mL [facility] May 18 17:21:07 2019 Buprenorphine 250Positive - Cons istentPOSITIVE> ng/mL Jie May 19 16:33:47 2019 Norbuprenorphine 500Positive - C onsistentPOSITIVE> ng/mL Jie May 19 16:33:47 2019 Naloxone 553.950Positive - Consi stentPOSITIVE ng/mL Jie May 19 16:33:47 2019 Desmethyldoxepin 0.000Negative *Negative ng/mL SatMay 19 16:33:47 2019 Doxepin 4.240NegativeNegative ng /mL Jie May 19 16:33:47 2019 Imipramine 1.960NegativeNegative ng/mL SatMay 19 16:33:47 2019 Nortriptyline 3.020NegativeNegative ng/mL SatMay [...] Naloxone 647.270Positive - Incon sistentPOSITIVE ng/mL Jie Dec 24 08:20:16 2019 Norfentanyl 0.280NegativeNegative * ng/mL SatJun [...] Metabolites -28.00Negati veNegative ng/mL SatJul 12 19:41:14 EST 2020 Cotinine 649.00PRESUMPTIVE POSIT [...] SatJul 12 19:41:15 2020 Phencyclidine 1.30NegativeNegative* ng/mL [facility] Jul 12 19:41:15 EST 2020 Cannabinoids -5.60NegativeNegative* ng/mL Jul 12 19:41:15 2020 Tramadol 42.00NegativeNegative n g/mL Jul 12 19:41:15 2020 Tricyclics 547.00PRESUMPTIVE POS ITIVEPRESUMPTIVE POSITIVE ng/mL [facility] Jul 12 19:41:15 EST 2020 Ecstasy (MDMA) 50.00NegativeNegativ e ng/mL [facility] Jul 12 19:41:16 EST 2020 Buprenorphine 216.190Positive - ConsistentPOSITIVE ng/mL [facility] Jul 13 11:17:06 2020 Norbuprenorphine 476.890Positive - ConsistentPOSITIVE ng/mL [facility] Jul 13 11:17:06 2020 Naloxone 629.130Positive - Incon sistentPOSITIVE ng/mL [facility] Jul 13 11:17:06 2020 Norfentanyl 0.610NegativeNegative * ng/mL [facility] Jul 13 11:17:06 2020 Fentanyl 0.040NegativeNegative n g/mL [facility] Jul 13 11:17:06 2020 Carfentanil 0.040NegativeNegative * ng/mL [facility] Jul 13 11:17:06 2020 Norcarfentanil 0.190NegativeNegativ e ng/mL [facility] Jul 13 11:17:06 2020 Sufentanil 0.080NegativeNegative ng/mL [facility] Jul 13 11:17:06 2020 Desmethyldoxepin 0.000Negative *Negative ng/mL [facility] Jul 13 11:17:06 2020 Doxepin 0.000NegativeNegative ng /mL [facility] Jul 13 11:17:06 2020 Imipramine 3.450NegativeNegative ng/mL Wed Feb 03 11:17:06 EST 2020 Nortriptyline 6.610NegativeNegative ng/mL Wed Feb 03 11:17:06 EST 2020 Amitriptyline 4.260NegativeNegative ng/mL Sat Feb 03 11:17:06 EST 2020 Clomipramine 12.060NegativeNegative ng/mL Wed Feb 03 11:17:06 EST 2020 Desipramine 7.260NegativeNegative * ng/mL Wed Feb 03 11:17:06 EST 2020 Aripiprazole 0.000NegativeNegative* ng/mL Sat Feb 03 10:13:02 EST 2020 Chlorpromazine 0.160NegativeNegativ e ng/mL Sat Feb 10:13:02 EST 2020 Clozapine 0.020NegativeNegative ng/mL Sat Feb 10:13:02 EST 2020 Fluphenazine 0.090NegativeNegative* ng/mL Sat Feb 10:13:03 EST 2020 Haloperidol 0.040NegativeNegative * ng/mL Sat Feb 03 10:13:03 EST 2020 Lurasidone 0.280NegativeNegative ng/mL Sat Feb 03 10:13:03 EST 2020 Olanzapine 0.140NegativeNegative ng/mL Sat Feb 03 10:13:03 EST 2020 Promethazine 0.020NegativeNegative* ng/mL Wed Feb 03 10:13:03 EST 2020 Quetiapine 50Positive - Consiste ntPOSITIVE> ng/mL Sat Feb 03 10:13:03 EST 1 Risperidone 0.000NegativeNegative * ng/mL Wed Feb 03 10:13:03 EST 2020 Trifluoperazine 0.230Negative Negative ng/mL Wed Feb 03 10:13:03 2020 Ziprasidone 0.000NegativeNegative * ng/mL SatJul [...] EDT 2020 LEUKOCYTE E NEGATIVE SatDec 09 2 12:55:00 EDT 2020 WBC 6-10 /HPF SatDec [...] GRANULAR CA DNR /LPF Jie Dec 09 12:55:00 EDT 2020 CASTS DNR /LPF Jie Dec 29 12:5 5:00 EDT 2020 YEAST DNR /HPF Jie Dec 29 12:5 5:00 EDT 2020 COMMENTS DNR Jie Dec 29 2:55:00 EDT 2020 NOTE DNR Jie Dec 29 12:55 :00 EDT 2020 E [id number] null GLUCOSE 92 mg/dL SatJan 04 11 [...] cells/uL SatJan 04 11:34:00 EDT 2020 ABSOLUTE AR DNR cells/uL SatJan 04 11:34:00 EDT 2020 [...] W/ NON-REACTIVE Sat 11:34:00 EDT 2020 E [id number] null Medications Medication Directions Start Date End Date LAMICTAL (LAMOTRIGINE) 25 MG TABLET 2 Tablet HS: At Bedtime ORAL SatJan 24 06:00:00 EDT 2020Feb 21 05:59 :00 EDT 2020 Minipress 1 MG CAP Take one (1) cap robert by mouth daily SatJan 24 00:00:00 EDT 2020 15 00:00 :00 EDT 2020 Wellbutrin XL 150 MG T24 Take one ( 1) tablet by mouth daily SatJan 24 00:00:00 EDT 2020 Wed Sep 15 00:00 :00 EDT 2020 traZODone hydrochloride 150 MG TAB Take one (1) tablet by mouth at bedtime SatJan 24 00:00:00 ED2020 Wed Sep 15 00:00:00 ED2020 Topamax 25 MG CAP Take one (1) caps ule by mouth twice a day SatJan 24 00:00:00 ED2020 Wed Sep 15 00:00 :00 EDT 2020 Vistaril 25 MG CAP Take one (1) cap robert by mouth three times a day, as needed for anxiety SatJan 24 00:00:00 EDT 2020 Wed Sep 15 00:00:00 EDT 2020 SEROquel 25 MG TAB Take one (1) tab let by mouth three times a day SatJan 24:00:00 2020 Wed Sep 15 00:00 :00 EDT 2020 Minipress 1 MG CAP Take one (1) cap robert by mouth daily SatJan 24 00:00:00 ED2020Jan 24 00:00 :00 ED2020 SEROquel 100 MG TAB Take one (1) ta blet by mouth at bedtime SatJan 24 00:00:00 ED2020 Wed Sep 15 00:00 :00 EDT 2020 Wellbutrin XL 150 MG T24 Take one ( 1) tablet by mouth daily SatJan 24 00:00:00 ED2020Jan 24 00:00 :00 ED2020 traZODone hydrochloride 150 MG TAB Take one (1) tablet by mouth at bedtime SatJan 24 00:00:00 ED2020Jan 24:00:00 ED2020 Topamax 25 MG CAP Take one (1) caps ule by mouth twice a day SatJan 24 00:00:00 EDT 2020Jan 24:00 :00 EDT 2020 Vistaril 25 MG CAP Take one (1) cap robert by mouth three times a day, as needed for anxiety SatJan 24 00:00:00 ED2020Jan 24 00:00:00 EDT 2020 SEROquel 25 MG TAB Take one (1) tab let by mouth three times a day SatJan 24 00:00:00 EDT 2020Jan 24 00:00 :00 EDT 2020 Effexor XR 37.5 MG CER Take one (1) capsule by mouth every morning SatJan 24 00:00:00 EDT 2020 [facility] Feb 22 00:00 :00 EDT 2020 Minipress 1 MG [...] EDT 2020Jan 24 00:00 :00 EDT 2020 NICOTINE POLACRILEX 2 MG LOZENGE/BERTHA 2 Each TID: Three Times a Day ORAL SatJan 23 00:00:00 EDT 2020 [place] Feb 12 23:59:00 EDT 2020 CLONIDINE HCL 0.1 MG TABLET 1 Table t TID: Three Times a Day ORAL (Does not need BP assessed) SatJan 23 10:41:00 EDT 2020 [facility] Feb 13 10:40:00 EDT 2020 HYDROXYZINE HCL 25 MG [...] a Day ORAL SatJan 18 06:00:00 EDT 2020Feb 15 05:59 :00 EDT 2020 SUBOXONE (BUPRENORPHINE-NALOXONE) [...] 31 18:16:00 EDT 2020Jan 28 18:15:00 EDT 2020 NICOTINE 21 MG/24 HR PATCH, [...] ACETATE) 0.15 MG/1 ACT UATION SPRAY 1 [place] BIDPRN: Twice A Day As Needed NASAL (To be given immediately when she has nosebleeds) SatDec 30 06:00:00 EDT 2020Jan 27:59 :00 EDT 2020 QUETIAPINE FUMARATE 25 MG TABLET 1 Tablet TID: Three Times a Day ORAL SatDec 30:00:00 EDT 2020Jan 27:59 :00 ED2020 SEROQUEL (QUETIAPINE FUMARATE) 100 MG [...] a Day ORAL SatDec 30 06:00:00 EDT 2020 16 10:43 :00 EDT 2020 LAMICTAL (LAMOTRIGINE) 25 MG TABLET 2 Tablet HS: At Bedtime ORAL SatDec 30 06:00:00 EDT 2020Jan 24 09:16 :00 EDT 2020 ACETAMINOPHEN 500 MG CAPSULE 2 caps ule Q6-8HPRN: Every 6-8 Hours As Needed ORAL (MDD 8 Tabs) SatDec 28 16:02:00 EDT 2020Jan 25 16:01:00 EDT 2020 BENADRYL ALLERGY (DIPHENHYDRAM INE HYDROCHLORIDE) 25 MG TABLET 1 tablet TIDPRN: Three Times A Day As Needed ORAL SatDec 28 16:02:00 EDT 2020Jan 25 16:01:00 EDT 2020 COLACE (DOCUSATE SODIUM) 100 MG CAPSULE, LIQ UID FILLED 1 capsule Daily As Needed ORAL SatDec 28 16:02:00 EDT 2020Jan 25 16:01:00 EDT 2020 FIBER-LAX 625 MG TABLET 2 tablet AR N: As Needed ORAL (MDD 4 Tabs) SatDec 28 16:02:00 EDT 2020Jan 25 16:01 :00 EDT 2020 MILK OF MAGNESIA 400 MG/5 ML SOLUTION 60 mL PRN: As Needed ORAL SatDec 28 16:02:00 EDT 2020Jan 25 16:01 :00 EDT 2020 MELATONIN 5 MG CAPSULE 1 capsule HS PRN: At Bedtime As Needed ORAL (MDD 5mg) SatDec 28 16:02:00 EDT 2020Jan 25 16:01:00 EDT 2020 MULTIVITAMIN TABLET 1 tablet Daily ORAL SatDec 28 16:02:00 EDT 2020Jan 25 16:01:00 EDT 2020 ORAJEL MOUTH SORE [...] day, as needed SatDec 09 00:00:00 ED2020Jan 24:00:00 EDT 2020 Minipress 1 MG CAP Take one (1) cap robert by mouth daily SatDec 09 00:00:00 2020Jan 24:00 :00 2020 SEROquel 100 MG TAB Take one (1) ta blet by mouth at bedtime SatDec 09 00:00:00 ED2020Jan 07 00:00 :00 EDT 2020 Wellbutrin XL 150 MG T24 Take one ( 1) tablet by mouth daily SatDec 09 00:00:00 2020Jan 24:00 :00 EDT 2020 traZODone hydrochloride 150 MG TAB Take one (1) tablet by mouth at bedtime SatDec 09 00:00:00 2020Jan 24 00:00:00 2020 Topamax 25 MG CAP Take one (1) caps ule by mouth twice a day SatDec 09 00:00:00 2020Jan 24 00:00 :00 2020 Vistaril 25 MG CAP Take one (1) cap robert by mouth three times a day, as needed for anxiety SatDec 09 00:00:00 2020Jan 24:00:00 ED2020 SEROquel 25 MG TAB Take one (1) tab let by mouth three times a day SatDec 09 00:00:00 2020Jan 24 00:00 :00 2020 Effexor XR 37.5 MG CER Take one (1) capsule by mouth every morning SatDec 09 00:00:00 ED2020Jan 07 00:00 :00 ED2020 Minipress 5 MG CAP Take one (1) cap robert by mouth at bedtime SatDec 09 00:00:00 2020Jan 24 00:00 :00 2020 cloNIDine HCl 0.1 MG TAB Take one ( 1) tablet by mouth three times a day, as needed SatDec 09:00:00 2020Jan 24 00:00:00 2020 Minipress 5 MG [...] a day, as needed SatOctober 10 00:00:00 ED2020Dec 08 00:00:00 2020 Minipress 1 MG CAP Take one (1) cap robert by mouth daily SatOctober 10 00:00:00 EDT 2020Dec 08 00:00 :00 ED2020 SEROquel 100 MG TAB Take one (1) ta blet by mouth at bedtime SatOctober 10 00:00:00 EDT 2020Nov 08 00:00 :00 ED2020 Wellbutrin XL 150 MG T24 Take one ( 1) tablet by mouth daily SatOctober 10 00:00:00 EDT 2020Dec 08 00:00 :00 ED2020 traZODone hydrochloride 150 MG TAB Take one (1) tablet by mouth at bedtime SatOctober 10 00:00:00 EDT 2020Dec 08 00:00:00 ED2020 Topamax 25 MG CAP Take one (1) caps ule by mouth twice a day SatOctober 10 00:00:00 EDT 2020Dec 08 00:00 :00 ED2020 Vistaril 25 MG CAP Take one (1) cap robert by mouth three times a day, as needed for anxiety SatOctober 10 00:00:00 EDT 2020Dec 08 00:00:00 ED2020 SEROquel 25 MG TAB [...] SatMay 30 00:00:00 2019May 30 00:00:00 2019 traZODone hydrochloride 100 [...] tablet by mouth daily SatMay 30 00:00:00 2019 Jie Feb 00:00 :00 2020 Vistaril 25 MG CAP Take one (1) cap robert by mouth three times a day, as needed for anxiety SatMay 30 00:00:00 2019 Jie Feb 00:00:00 2020 SEROquel 25 MG TAB Take one (1) tab let by mouth three times a day SatMay 30 00:00:00 2019 Jie Feb 00:00 :00 2020 lamoTRIgine 25 MG TAB Take two (2) tablets by mouth at bedtime SatMay 30 00:00:00 2019u Feb 00:00 :00 2020 Buprenorphine-Naloxone 0.0 BRAN Aaron [...] a day, as needed for anxiety SatMay 17:00:00 2019May 30 00:00:00 EST 2020 SEROquel 25 MG TAB Take one (1) tab let by mouth three times a day SatMay 17:00:00 EST 2019May 30 00:00 :00 EST 2019 lamoTRIgine 25 MG TAB Take two (2) tablets by mouth at bedtime SatMay 17 00:00:2019May 30 00:00 :00 2019 Minipress 5 MG CAP Take one (1) cap robert by mouth at bedtime SatMay 17:00:00 2019Jul 15 00:00 :00 2020 Buprenorphine-Naloxone 0.0 [...] 2019Apr 25 00:00:00 2019 DDAVP 0.0 SPR [place] two (2) sprays in nostril(s) daily SatApr 12:00:00 2019Sep 09 00:00 :00 2020 cloNIDine HCl 0.1 MG TAB Take one ( 1) tablet by mouth three times a day, as needed SatApr 12:00:00 2019May 11:00:00 2019 rOPINIRole HCl 0.25 MG TAB Take one (1) tablet by mouth three times a day SatApr 12:00:00 2019Sep 09 00:00 :00 ED2020 Esomeprazole Magnesium 20 MG ECC Ta ke one (1) capsule by mouth daily SatApr 12:00:00 2019Sep 09 00:00 :00 ED2020 Ibuprofen 600 MG TAB Take one (1) t ablet by mouth twice a day, as needed for pain SatApr 12:00:00 2019Sep 09 00:00:00 2020 Anoro Ellipta 0.0 POW Inhale one ( 1) spray into the lungs daily SatApr 12:00:00 2019Sep 09 00:00 :00 2020 traZODone hydrochloride 100 MG TAB Take one (1) tablet by mouth at bedtime SatApr 12:00:00 2019May 11 00:00:00 2019 Vistaril 25 MG [...] 10 00:00 :00 2020 Narcan 0.0 SPR [place] one (1) spray in nostril(s) daily SatApr [...] 07 00:00:00 2019Sep 09 00:00 :00 2020 Suboxone [...] 03 00:00 :00 2019 Narcan 0.0 SPR [place] one (1) spray in nostril(s) daily SatNovember 03 00:00:00 2019Dec 02 00:00 :00 2019 ZyPREXA 10 MG TAB Take one (1) tabl et by mouth at bedtime SatNovember 03 00:00:00 2019Dec 02:00 :00 2019 SEROquel 100 MG TAB Take one (1) ta blet by mouth twice a day SatNovember 03 00:00:00 2019u Dec 02:00 :00 2019 traZODone hydrochloride 100 MG TAB [...] 2019Sep 09 00:00:00 2020 DDAVP 0.0 SPR [place] two (2) sprays in nostril(s) daily SatApr 12 00:00:00 2019Sep 09 00:00 :00 2020 rOPINIRole HCl 0.25 MG TAB Take one (1) tablet by mouth three times a day SatApr 12 00:00:00 2019Sep 09 00:00 :00 2020 Esomeprazole Magnesium 20 MG ECC Ta ke one (1) capsule by mouth daily SatApr 12 00:00:2019Sep 09 00:00 :00 2020 Ibuprofen 600 MG [...] 09 00:00 :00 2020 Narcan 0.0 SPR [place] one (1) spray in nostril(s) daily SatApr 12 00:00:00 2019Sep 09 00:00 :00 [address] one (1) bran m under the tongue twice a day SatOctober 13 00:00:00 2019Nov 09 00:00 :00 2019 Buprenorphine-Naloxone 0.0 BRAN Aaron ce one (1) film under the tongue twice a day SatOctober 13 00:00:00 2019October 13 00:00:00 2019 Buprenorphine-Naloxone 0.0 BARN Aaron ce one (1) film under the tongue twice a day SatOctober 13 00:00:00 2019October 13 00:00:00 2019 Ventolin HFA 0.0 ANGELICA Inhale one (1 ) milliliter into the lungs daily SatOctober 13 00:00:2019October 13 00:00 :00 2019 Ventolin HFA 0.0 [...] SatAug 05 00:00:00 2019Aug 13 00:00 :00 EST 2019 Wellbutrin [...] :00 EDT 2020 METRONIDAZOLE 500 MG TABLET Sat Feb 08:00:00 EST 2019Aug 09 07:59:00 EST 2020 QUETIAPINE FUMARATE 100 MG TABLET Fri Feb 08:00:00 EST 2020 Fri Mar 08:59:00 EDT 2020 SUBOXONE (BUPRENORPHINE-NALOXONE) 8MG-2MG FILM Fri Feb 08:00:00 EST 2020 Fri Feb 28 07:59:00 EST 2020 LAMOTRIGINE 25 MG TABLET Fri Feb 08:00:00 EST 2020 Fri Mar 08:59:00 EDT 2020 QUETIAPINE FUMARATE 100 MG TABLET Fri Feb 08:00:00 EST 2019 Fri Mar 08:59:00 EDT 2020 QUETIAPINE FUMARATE 50 MG TABLET, EXTENDED RELEASE Jie Feb 20 22:58:00 EST 2019Aug 26 23:57:00 EDT 2020 SUBOXONE (BUPRENORPHINE-NALOXONE) 8MG-2MG FILM Jie Feb 08:00:00 EST 2020 Jie Feb 27 07:59:00 [...] EXTENDED RELEASE Tue Feb 11 21:00:00 EST 2019e Mar 10 21:59:00 EDT 2020 LAMOTRIGINE 25 MG TABLET Wed Feb 12 08:00:00 EST 2019 Wed Mar 11 08:59:00 EDT 2020 PRAZOSIN HCL 2 MG CAPSULE e Feb 21:00:00 2019 Mar 10 21:59:00 EDT 2020 SUBOXONE (BUPRENORPHINE-NALOXONE) 8MG-2MG FILM Mon Feb 10 23:24:00 EST 2019 Jie Feb 20 23:23:00 EST 2020 TRAZODONE HYDROCHLORIDE 50 MG TABLET Mon Feb 10 23:24:00 2019e Aug 17 00:23:00 EDT 2020 NARCAN (NALOXONE HCL) 4 MG/0.1 ML SPRAY Mon Feb 10 23:24:00 2019 Mon Feb 24 23:23:00 EST 2019 VENTOLIN HFA (ALBUTEROL SULFAT E) 0.09 MG/1 ACTUATION SUSPENSION Mon Feb 10 23:24:00 2019 e Aug 17 00:23:00 EDT 2019 NARCAN (NALOXONE HCL) 4 MG/0.1 ML SPRAY Mon Feb 10 23:24:00 EST 2019 Mon Feb 24 23:23:00 EST 2020 PEPCID (FAMOTIDINE) 40 MG TABLET Mon Feb 10 23:24:00 2019Aug 17 00:23:00 EDT 2020 ORAJEL MOUTH SORE MEDICINE (BE NZALKONIUM CHLORIDE-BENZOCAINE/ZINC CHLORIDE) 0.02%-20%-0.1% GEL/JELLY Mon Feb 1 0 23:24:00 2019 10 00:23:00 EDT 2020 MYLANTA (ALUMINUM HYDROXIDE-MA GNESIUM HYDROXIDE-SIMETHICONE) 200MG/5 ML-200MG/5 ML-20MG/5 ML SUSPENSION Mon Feb 10 23:24:00 2019e Aug 10 00:23:00 EDT 2020 MULTIVITAMIN TABLET Mon Feb 10 23:24:00 2019 10 00:23:00 EDT 2020 MELATONIN 5 MG CAPSULE Mon Feb 10 23:24:00 2019e Aug 10 00:23:00 EDT 2020 ICY HOT (MENTHOL-METHYL SALICYLATE) 10%-30% CREAM Mon Feb 10 23:24:00 2019 10 00:23:00 EDT 2020 FIBER-LAX 625 MG TABLET Mon Feb 10 :24:00 2019 10 00:23:00 EDT 2020 CLARITIN (LORATADINE) 10 MG TABLET Mon Feb 10 :24:00 2019 10 00:23:00 EDT 2020 BENADRYL ALLERGY (DIPHENHYDRAM INE HYDROCHLORIDE) 25 MG TABLET Mon Feb 10 ::2019 e Aug 10 00:23:00 EDT 2019 TUMS (CALCIUM CARBONATE) 500 MG TABLET, CHEWABLE Mon Feb 10 :24:00 2019 10 00:23:00 EDT 2019 GAS-X (SIMETHICONE) 80 MG TABLET, CHEWABLE Mon Feb 10 ::2019 10 00:23:00 EDT 2019 ACETAMINOPHEN (TYLENOL) 500 MG TABLET Mon Feb 10 ::2019 10 00:23:00 EDT 2020 NICOTINE POLACRILEX 4 MG LOZENGE/BERTHA Mon Feb 10 :24:00 EST 2019 Mon Feb 24 23::00 EST 2020 MONTELUKAST SODIUM 10 MG TABLET Mon Feb [...] 2020 Sat Feb 15 23:23:00 EST 2020 CATAPRES (CLONIDINE HYDROCHLORIDE) 0.1 MG TABLET Mon Feb 10 :24:00 2020 Sat Feb 15 :23:00 EST 2020 XOPENEX (LEVALBUTEROL HYDROCHLORIDE) 1.25 MG /3 ML SOLUTION Mon Feb 10 :24:00 2019 10 00:23 :00 EDT 2020 TRIPLE ANTIBIOTIC OINTMENT 40 0UNITS/1GM-3.5MG/1GM-5000UNITS/1GM OINTMENT SatJul 20 23:24:00 2019Aug 17 00:23:00 ED2019 PEPTO-BISMOL (BISMUTH SUBSALICYLATE) 262 MG/ 15 ML SUSPENSION SatJul 20 23:24:00 2019Aug 17 00:23 :00 EDT 2019 MILK OF MAGNESIA 400 MG/5 ML SOLUTION SatJul 20:24:00 2019Aug 17 00:23:00 EDT 2019 GUAIFENESIN 600 MG TABLET, EXTENDED RELEASE SatJul 20 23:24:00 2019Aug 17 00:23:00 EDT 2019 COLACE (DOCUSATE SODIUM) 100 MG CAPSULE, LIQ UID FILLED SatJul 20 23:24:00 2019Aug 17 00:23 :00 ED2019 BENADRYL ALLERGY (DIPHENHYDRAM INE HYDROCHLORIDE) 25 MG TABLET SatJul 20 23:24:00 2019Aug 17 00:23:00 EDT 2019 EUCERIN DAILY PROTECTION (LOTI ON, MULTI INGREDIENT) 2%-7.5%-4.5%-2.4%-4.8% LOTION SatJul 20 23:2 4:00 2019Aug 17 00:23:00 ED2019 EUCERIN DAILY PROTECTION (LOTI ON, MULTI INGREDIENT) 2%-7.5%-4.5%-2.4%-4.8% LOTION SatJul 19 10:0 5:00 2019 08 11:04:00 EDT 2019 TRAZODONE HYDROCHLORIDE 50 MG TABLET SatJul 19 10:03:00 2019 08 11:02:00 EDT 2019 ACETAMINOPHEN (TYLENOL) 500 MG TABLET SatJul 19 04:55:00 2019 Sun Aug 08 05:54:00 EDT 2019 GAS-X (SIMETHICONE) 80 MG TABLET, CHEWABLE Sat b 08 15:55:00 2019 Sat Aug 14 15:54:00 2019 TUMS (CALCIUM CARBONATE) 500 MG TABLET, CHEWABLE Sat b 15:55:00 2019 Sat Aug 14 15:54:00 2019 BENADRYL ALLERGY (DIPHENHYDRAM INE HYDROCHLORIDE) 25 MG TABLET Sat b 08 15:55:00 EST 2019 Sa Aug 14 15:54:00 EST 2020 BENADRYL ALLERGY [...] MG CAPSULE Sat Feb 08 15:55:00 EST 2019Aug 14 15:54:00 EST 2020 MILK OF MAGNESIA [...] OINTMENT Sat Feb 08 15:55:00 EST 2020 Aug 14 15:54:00 EST 2020 XOPENEX (LEVALBUTEROL HYDROCHLORIDE) 1.25 MG /3 ML SOLUTION Sat Feb 08 15:55:00 EST 2020 Sat Mar 15:54 :00 EST 2020 NARCAN (NALOXONE HCL) [...] ACTUATION DISK t Jul 08 15:55:00 EST 2020 SatAug 14 15:54:00 EST 2020 VENTOLIN HFA (ALBUTEROL [...] EST 2020 SatAug 14 15:54:00 EST 2020 NICOTINE POLACRILEX 4 MG LOZENGE/BERTHA Sat Feb 08 15:54:00 EST 2020 Sat Feb 22 15:53:00 EST 2020 NICOTINE POLACRILEX 4 MG LOZENGE/BERTHA Wed Feb 05 08:00:00 EST 2020 Wed Feb 19 07:59:00 EST 2020 MONTELUKAST SODIUM 10 MG TABLET Sat Feb 08:00:00 EST 2020 Sat Mar 07:59:00 EST 2020 NARCAN (NALOXONE HCL) 4 MG/0.1 ML SPRAY Satb 08:00:00 EST 2020 Wed Feb 07:59:00 EST 2020 SUBOXONE (BUPRENORPHINE-NALOXONE) 8MG-2MG FILM Jie Feb 06 08:00:00 EST 2020 Sun Feb 16 07:59:00 EST 2020 SUBOXONE (BUPRENORPHINE-NALOXONE) 4MG-1MG FILM Wed Feb 08:00:00 EST 2020 Jie Feb 06 07:59:00 EST 2020 VENTOLIN HFA (ALBUTEROL SULFAT E) 0.09 MG/1 ACTUATION SUSPENSION Satb 08:00:00 EST 2020 We d Aug 11 07:59:00 EST 2020 ADVAIR DISKUS 250/50 (FLUTICAS ONE PROPIONATE-SALMETEROL XINAFOATE) 0.25MG/1 ACTUATION-0.05MG/1 ACTUATION DISK We d Jul 15 08:00:00 EST 2020 SatAug 11 07:59:00 EST 2020 HYDROXYZINE HCL 25 MG TABLET SatJul 15 12:24:00 EST 2020 Mon Feb 10 12:23:00 EST 2020 ZOFRAN (ONDANSETRON) 4 MG TABLET, DISINTEGRATING SatJul 15 12:24:00 EST 2020 Mon Feb 10 12:23:00 EST 2020 CATAPRES (CLONIDINE HYDROCHLORIDE) 0.1 MG TABLET Satb 12:24:00 EST 2020 Mon Feb 10 12:23:00 EST 2020 NARCAN (NALOXONE HCL) 4 MG/0.1 ML SPRAY Satb 12:24:00 EST 2020 Wed Feb 12:23:00 EST 2020 XOPENEX (LEVALBUTEROL HYDROCHLORIDE) 1.25 MG /3 ML SOLUTION Satb 12:24:00 EST 2020 Sat Mar 12:23 :00 EST 2020 TRIPLE ANTIBIOTIC OINTMENT 40 0UNITS/1GM-3.5MG/1GM-5000UNITS/1GM OINTMENT Satb 12:24:00 EST 2020 We d Mar 12:23:00 EST 2020 PEPCID (FAMOTIDINE) 40 MG TABLET Satb 12:24:00 EST 2020 Sat Mar 12:23:00 EST 2020 PEPTO-BISMOL (BISMUTH SUBSALICYLATE) 262 MG/ 15 ML SUSPENSION SatJul 15 12:24:00 EST 2019Aug 11 12:23 :00 EST 2020 ORAJEL MOUTH SORE MEDICINE (BE NZALKONIUM CHLORIDE-BENZOCAINE/ZINC CHLORIDE) 0.02%-20%-0.1% GEL/JELLY Sat 0 5 12:24:00 EST 2019 04 12:23:00 EST 2020 MYLANTA (ALUMINUM HYDROXIDE-MA GNESIUM HYDROXIDE-SIMETHICONE) 200MG/5 ML-200MG/5 ML-20MG/5 ML SUSPENSION SatJul 15 12:24:00 EST 2019Aug 11 12:23:00 EST 2020 MULTIVITAMIN TABLET SatJul 15 12:24:00 EST 2019Aug 11 12:23:00 EST 2020 MILK OF MAGNESIA 400 MG/5 ML SOLUTION SatJul 15 12:24:00 EST 2019Aug 11 12:23:00 EST 2020 MELATONIN 5 MG CAPSULE SatJul 15 12:24:00 EST 2019Aug 11 12:23:00 EST 2020 IMODIUM A-D (LOPERAMIDE HYDROC HLORIDE) 2 MG CAPSULE, LIQUID FILLED SatJul 15 12:24:00 EST 2019 We Aug 11 12:23:00 EST 2020 IBUPROFEN 200 MG TABLET SatJul 15 12:24:00 EST 2019Aug 11 12:23:00 EST 2020 ICY HOT (MENTHOL-METHYL SALICYLATE) 10%-30% CREAM SatJul 15 12:24:00 EST 2019Aug 11 12:23:00 EST 2020 GUAIFENESIN 600 MG TABLET, EXTENDED RELEASE SatJul 15 12:24:00 EST 2019Aug 11 12:23:00 EST 2020 FIBER-LAX 625 MG TABLET SatJul 15 12:24:00 EST 2019Aug 11 12:23:00 EST 2020 COLACE (DOCUSATE SODIUM) 100 MG CAPSULE, LIQ UID FILLED SatJul 15 12:24:00 EST 2019Aug 11 12:23 :00 EST 2020 CLARITIN (LORATADINE) 10 MG TABLET SatJul 15 12:24:00 EST 2019Aug 11 12:23:00 EST 2020 BENADRYL ALLERGY (DIPHENHYDRAM INE HYDROCHLORIDE) 25 MG TABLET SatJul 15 12:24:00 2019Aug 11:23:2019 BENADRYL ALLERGY (DIPHENHYDRAM INE HYDROCHLORIDE) 25 MG TABLET SatJul 15:24:2019Aug 11::2019 TUMS (CALCIUM CARBONATE) 500 MG TABLET, CHEWABLE SatJul 15:24:2019Aug 11 12:23:00 2019 GAS-X (SIMETHICONE) 80 MG TABLET, CHEWABLE SatJul 15:24:2019Aug 11::2019 ACETAMINOPHEN 500 MG CAPSULE SatJul 15:24:2019Aug 11 12:23:00 2019 NICODERM CQ (NICOTINE) 14 MG/24 HR PATCH, EX TENDED RELEASE SatJun 26 08:04:2019Jul 03 08:03 :00 2019 HYDROXYZINE HCL 25 MG TABLET SatJun 26:04:00 EST 2019Jul 01 08:03:00 EST 2019 ZOFRAN (ONDANSETRON) 4 MG TABLET, DISINTEGRATING SatJun 26 08:04:00 2019Jul 01 08:03:00 EST 2019 CATAPRES (CLONIDINE HYDROCHLORIDE) 0.1 MG TABLET SatJun 26 08:04:00 2019Jul 01 08:03:00 EST 2019 NARCAN (NALOXONE HCL) 4 MG/0.1 ML SPRAY SatJun 26 08:04:00 2019Jul 10 08:03:00 EST 2020 XOPENEX (LEVALBUTEROL HYDROCHLORIDE) 1.25 MG /3 ML SOLUTION SatJun 26 08:04:00 EST 2019 Fri Jul 24 08:03 :00 EST 2020 TRIPLE ANTIBIOTIC OINTMENT 40 0UNITS/1GM-3.5MG/1GM-5000UNITS/1GM OINTMENT SatJun 26 08:04:00 2019 Fr i Feb 14 08:03:00 EST 2020 PEPCID (FAMOTIDINE) 40 MG TABLET SatJun 26 08:04:00 2019 Fri Feb 08:03:00 EST 2020 PEPTO-BISMOL (BISMUTH SUBSALICYLATE) 262 MG/ 15 ML SUSPENSION SatJun 26 08:04:00 EST 2019 Fri Jul 24 08:03 :00 EST 2020 ORAJEL MOUTH SORE MEDICINE (BE NZALKONIUM CHLORIDE-BENZOCAINE/ZINC CHLORIDE) 0.02%-20%-0.1% GEL/JELLY Fri Jun 10 7 08:04:00 EST 2020 Fri Feb 14 08:03:00 EST 2020 MYLANTA (ALUMINUM HYDROXIDE-MA GNESIUM HYDROXIDE-SIMETHICONE) 200MG/5 ML-200MG/5 ML-20MG/5 ML SUSPENSION SatJun 26 08:04:00 EST 2020 Fri Feb 14 08:03:00 EST 2020 MULTIVITAMIN TABLET SatJun 26 08:04:00 EST 2019 Fri Feb 14 08:03:00 EST 2020 MILK OF MAGNESIA 400 MG/5 ML SOLUTION SatJun 26 08:04:00 EST 2019 Fri Feb 14 08:03:00 EST 2020 MELATONIN [...] MG CAPSULE Fri Jun 26 08:04:00 EST 2019 Fri [...] EST 2019 Fri Jun 26 07:59:00 EST 2020 VALIUM (DIAZEPAM) 5 MG TABLET Fri Jun 26 08:00:00 EST 2019Jun 29 07:59:00 EST 2020 VALIUM (DIAZEPAM) 5 MG TABLET Jie Jun 25 08:00:00 EST 2019 Fri Jun 26 07:59:00 EST 2019 SUBOXONE (BUPRENORPHINE-NALOXONE) 4MG-1MG FILM Jie Jun 25 08:00:00 EST 2019u Jul 02 07:59:00 EST 2019 SUBOXONE (BUPRENORPHINE-NALOXONE) 4MG-1MG FILM Jie Jun 25 08:00:00 EST 2019 Fri Jun 26 07:59:00 EST 2020 ADVAIR DISKUS 250/50 (FLUTICAS ONE PROPIONATE-SALMETEROL XINAFOATE) 0.25MG/1 ACTUATION-0.05MG/1 ACTUATION DISK u Jun 25 08:00:00 2019u Feb 07:59:00 EST 2020 PROAIR HFA (ALBUTEROL SULFATE) 0.09 MG/1 ACTUATION SUSPENSION Jie Jun 25 08:00:00 EST 2019 Th u Feb 07:59:00 EST 2020 NICOTINE 14 MG/24 HR PATCH, EXTENDED RELEASE Jie Jun 25 08:00:00 2020 Jie Feb 13 07:59:00 EST 2020 Gabapentin 300 MG CAP Take two (2) capsules by mouth three times a day SatDec 22 00:00:00 2018 [facility] Sep 12 00:00 :00 2018 Prazosin HCl 1 MG CAP Take one (1) capsule by mouth at bedtime SatDec 22 00:00:00 2018 [facility] Sep 12 00:00 :00 2018 traZODone hydrochloride 100 MG TAB Take one (1) or two (2) tablets by mouth at bedtime, as needed. SatDec 22 00:00:00 2018 [facility] Sep 12 00:00:00 2018 Topamax 25 MG CAP Take one (1) caps ule by mouth twice a day SatDec 22 00:00:[address] [facility] 12 00:00 :00 2018 Prazosin HCl 5 MG CAP Take one (1) capsule by mouth at bedtime SatDec 22 00:00:00 2018 [facility] Sep 12 00:00 :00 2018 hydrOXYzine Pamoate 50 MG CAP Take one (1) capsule by mouth twice a day, as needed SatDec 22 00:00:[address] [facility] 12 00:00:00 2018 hydrOXYzine Pamoate 50 MG CAP [...] SatSep 12 12:07:00 EDT 2018October 10 12:06:00 ED2018 HYDROXYZINE HCL 50 [...] 06 09:00:00 EDT 2018 Th u Sep 11 08:59:00 EDT 2018 MIRALAX [...] XINAFOATE) 0.25MG/1 ACTUATION-0.05MG/1 ACTUATION DISK We d Aug 27 22:42:00 EDT 2018Sep 24 22:41:00 [...] OINTMENT SatAug 27 17:41:00 EDT 2019 We d Sep 24 17:40:00 EDT 2019 ZANTAC (RANITIDINE HYDROCHLORIDE) 150 MG TABLET SatAug 27 17:41:00 EDT 2018Sep 24 17:40:00 EDT 2019 PHENYLEPHRINE HCL 10 MG TABLET SatAug 27 17:41:00 EDT 2018Sep 24 17:40:00 EDT 2019 PEPTO-BISMOL (BISMUTH SUBSALICYLATE) 262 MG/ 15 ML SUSPENSION Sat 20 17:41:00 EDT 2018Sep 24 17:40 :00 EDT 2019 ORAJEL MOUTH SORE MEDICINE (BE NZALKONIUM CHLORIDE-BENZOCAINE/ZINC CHLORIDE) 0.02%-20%-0.1% GEL/JELLY Sat 2 0 17:41:00 EDT 2018Sep 24 17:40:00 EDT 2019 MYLANTA (ALUMINUM HYDROXIDE-MA GNESIUM HYDROXIDE-SIMETHICONE) 200MG/5 ML-200MG/5 ML-20MG/5 ML SUSPENSION Sat 20 17:41:00 EDT 2018Sep 24 17:40:00 [...] 2019 CLARITIN (LORATADINE) 10 MG TABLET Sat 20 17:41:00 EDT 2018Sep 24 17:40:00 EDT 2019 BENADRYL ALLERGY (DIPHENHYDRAM INE HYDROCHLORIDE) 25 MG TABLET SatAug 27 17:41:00 EDT 2019 We d Sep 24 17:40:00 EDT 2018 [...] 00:00:00 ED2017Sep 28 00:00 :00 EDT 2017 busPIRone HCl [...] Active Concerns * Opioid abuse * Code: 9277138 * Start Date: SatJun 10 11:00:00 EST [...] * Alcohol use disorder, severe * Code: [id number] * Start Date: SatJun 24 07:00:00 2019 * Text: * Severe nicotine withdrawal * Code: 20312096 * Start Date: SatJun 24 07:00:00 2019 * Text: * Stimulant use disorder * Code: 613683939 * Start Date: SatJun 24 07:00:00 2019 * Text: * Synthetic cannabinoid dependence * Code: 942346552 * Start Date: SatJul 15 07:00:00 2019 * Text: * Opioid use disorder, severe, dependence * Code: 72759773 * Start Date: SatJul 15 07:00:00 2019 * Text: * Current every day smoker * Code: 457429985 * Start Date: SatJul 15 07:00:00 2019 * Text: * Bipolar disorder with psychotic features * Code: [id number] * Start Date: SatSep 29 08:00:00 EDT [...] 04 11:09:00 EDT 2019 Temperature 97.4 [DEGF] SatAug 03 08:56:00 EST 2020 Temperature 36.3 SUSANA Sat 2 4 08:56:00 EST 2019 Heart Rate [...] 18 03:01:00 EST 2020 Respiration 16 /MIN SatJun 10 8 03:01:00 EST 2020 Systolic 114 MM[HG] Sat Jun 18 0 3:01:00 EST 2020 Diastolic 66 MM[HG] Sat 18 03:01:00 EST 2020 Heart Rate 74 [...] 24 09:45: 00 2019 Temperature 98.0 [DEGF] [facility] Feb 07 12:39:00 EDT 2018 Temperature 36.7 SUSANA [facility] Jan 10 12:39:00 EDT 2018 Heart Rate 69 /MIN [facility] Feb 07 12:39:00 EDT 2018 Respiration 14 /MIN [facility] Jan 10 12:39:00 EDT 2018 SpO2 98 % [facility] Feb 07 12:39 :00 EDT 2018 Systolic 100 MM[HG] [facility] Feb 07 2:39:00 EDT 2018 Diastolic 59 MM[HG] [facility] Feb 07 12:39:00 EDT 2018
--- OUTSIDE RECORDS SUMMARY | 2021-03-23 20:17 | CCD ---
Author Author Jasmin Farley Organization [employer] Address [address] [place] [address] Care Team Providers Care Nanny/Household Manager Name Role Phone Ambreen Farley Unavailable JohannykevinDahiana Unavailable Min Hernandez Unavailable Monika White Unavailable Functional Status No Results Mental Status No Results Assessments SatJan 24 21:12:52 EDT 2020: No Assessment Information Health Concerns No Known Health Concerns Allergies No Known Allergy Information Encounters Program Name Primary Diagnosis Admission Date/Time Discharge Date/Time BH - Short Term Crisis Respite SatApr 01 13:30:00 EDT 2019Apr 08 12:00:00 EDT 2019 Intensive Support SatJun 09 10:00:00 EST 2019 BH - Short Term Crisis Respite SatDec 21 14:15:00 EDT 2020Dec 23 14:00:00 EDT 2020 BH - Short Term Crisis [...] most recent episode (or current) unspecified* Code: [id number] * Start Date: SatApr 01 09:00:00 EDT 2019 * Text: * Mental Health and Stress Management* Code: * Start Date: SatNovember 02 00:00:00 EDT 2020 * Text: * Mental Health and Stress Management* Code: * Start Date: SatDec 21 00:00:00 EDT 2020 * Text: * Posttraumatic stress disorder* Code: [id number] * Start Date: SatApr 01 09:30:00 EDT [...]
--- OUTSIDE RECORDS SUMMARY | 2021-03-23 20:18 | CCD ---
Author Author AutogeneDENISHA claros Autogene rated Organization [facility] Address Unknown Phone Unavailable Care Team Providers Care Retail Advisor Name Role Phone Yaron Lobato AttendingPractitioner1 Peyton [...] Practitioner Quintin Cornell AdmittingPractitioner1 Zara Valdez Practitioner Yung Donovan Practitioner Samuel Pierce Practitioner Functional Status No [...] Primary Diagnosis Admission Date/ Time Discharge Date/Time [facility] Sat Jan 12 09:36:00 EDT 2017 [facility] SatSep 11 09:41:00 EDT 2019 [facility] Sat 02:02:00 EST 2020 [facility] Synthetic cannabinoid dependence SatJul 15 10:25:00 EST 2019 Sat Jul 18 14:14:00 EST 2019 [facility] SatJul 10 16:04:00 EST 2018 [facility] Synthetic cannabinoid dependence Sat Jul 18 14:16:00 EST 2019Jul 20 11:58:00 EST 2019 [facility] Alcohol use disorder, severe SatJun 24 14:16:00 EST 2019Jun 27 13:25:00 EST 2019 [facility] Jie Jan 10 11:41:00 EDT 2017 [facility] SatJan 09 10:42:00 EDT 2017 [facility] SatAug 19 09:30:00 EDT 2019 [facility] SatSep 24 13:11:00 EDT 2018Mar 02 11:08:00 EDT 2019 [facility] Heroin use disorder, severe, on maintenance therapy, dependence SatAug 20 09:30:00 EDT 2019October 14 11:29:00 EDT 2020 [facility] Severe opioid use disorder SatJul 20 11:59:00 EST 2019Aug 01 17:29:00 EST 2020 [facility] Polysubstance abuse SatJun 24 09:10:00 EST 2019Aug 03 08:17:00 EST 2019 [facility] SatSep 24 12:11:00 EDT 2019 [facility] Heroin use disorder, moderate, dependence SatApr 04 10:25:00 EDT 2019 Jie Jan 05 11:15:00 EDT 2020 [facility] SatOct 01 08:57:00 EDT 2019Nov 19 13:39:00 EDT 2019 [facility] SatJan 08 10:39:00 EDT 2016 [facility] SatAug 27 14:15:00 EDT 2018 [facility] Drug abuse counseling and surveillance of drug abuser SatAug 03 08:19:00 EST 2019Feb 15 08:55:00 EDT 2019 [facility] S[facility] davey abinoid dependence SatDec 28 10:30:00 EDT 2020 [facility] SatOctober 08 11:40:00 EDT 2016 [facility] Wait[facility] SatJun 13 13:54:00 EST 2020Jun 27 17:13:00 EST 2020 Immunizations No Known Immunizations Lab Results Result Type Result Value Date HEPATITIS A IGM TNP Sat 15:21:00 EDT 2019 HEPATITIS B SURFACE ANTIGEN TNP SatJan 19 15:21:00 EDT 2019 CONFIRMATION DNR SatJan 19 15:21:00 EDT 2019 HEPATITIS B CORE ANTIBODY (IGM) TNP SatJan 19 15:21:00 EDT 2019 HEPATITIS C ANTIBODY TNP SatJan 19 15:21:00 EDT 2019 SIGNAL TO CUT-OFF DNR SatJan 19 15:21:00 EDT 2019 GLUCOSE TNP mg/dL SatJan 19 15 :21:00 EDT 2019 UREA NITROGEN (BUN) DNR mg/dL Jan 19 15:21:00 EDT 2019 CREATININE DNR mg/dL SatJan 19 15:21:00 EDT 2019 eGFR NON-AFR. URUGUAYAN DNR mL/min/1.73m2 SatJan 19 15:21:00 EDT 2019 eGFR DNR mL/min/1.73m2 SatJan 19 15:21:00 EDT 2019 BUN/CREATININE RATIO DNR (calc) SatJan 19 15:21:00 EDT 2019 SODIUM DNR mmol/L SatJan 19 15: 21:00 EDT 2019 POTASSIUM DNR mmol/L SatJan 19 15:21:00 EDT 2019 CHLORIDE DNR mmol/L SatJan 19 1 5:21:00 EDT 2019 CARBON DIOXIDE DNR mmol/L Sat 15:21:00 EDT 2019 CALCIUM DNR mg/dL SatJan 19 15 :21:00 EDT 2019 PROTEIN, TOTAL DNR g/dL [facility] 15:21:00 EDT 2019 ALBUMIN DNR g/dL SatJan 19 15 :21:00 EDT 2019 GLOBULIN DNR g/dL (calc) SatJan 19 15:21:00 EDT 2019 ALBUMIN/GLOBULIN RATIO DNR (calc) SatJan 19 15:21:00 EDT 2019 BILIRUBIN, TOTAL DNR mg/dL SatJan 19 15:21:00 EDT 2019 ALKALINE PHOSPHATASE DNR U/L SatJan 19 15:21:00 EDT 2019 AST DNR U/L SatJan 19 15:21: 00 EDT 2019 ALT DNR U/L SatJan 19 15:21: 00 EDT 2019 COLOR RED SatJan 19 15:2 1:00 EDT 2019 APPEARANCE CLOUDY SatJan 19 15:21:00 EDT 2019 SPECIFIC GRAVITY 1.031 SatJan 19 15:21:00 EDT 2019 PH 5.5 SatJan 19 15:21:0 0 EDT 2019 GLUCOSE NEGATIVE SatJan 19 15 :21:00 EDT 2019 BILIRUBIN NEGATIVE SatJan 19 15:21:00 EDT 2019 KETONES NEGATIVE SatJan 19 15 :21:00 EDT 2019 OCCULT BLOOD NEGATIVE SatJan 19 15:21:00 EDT 2019 PROTEIN 3+ SatJan 19 15 :21:00 EDT 2019 NITRITE NEGATIVE SatJan 19 15 :21:00 EDT 2019 LEUKOCYTE ESTERASE NEGATIVE Mo n Jan 19 15:21:00 EDT 2019 WBC 0-5 /HPF SatJan 19 15:21: 00 EDT 2019 RBC NONE SEEN /HPF SatJan 19 15 :21:00 EDT 2019 SQUAMOUS EPITHELIAL CELLS 10-20 /HPF SatJan 19 15:21:00 EDT 2019 TRANSITIONAL EPITHELIAL CELLS DNR /HPF SatJan 19 15:21:00 EDT 2019 RENAL EPITHELIAL CELLS DNR /HPF SatJan 19 15:21:00 EDT 2019 BACTERIA NONE SEEN /HPF SatJan 19 15:21:00 EDT 2019 CALCIUM OXALATE CRYSTALS DNR /HPF SatJan 19 15:21:00 EDT 2019 TRIPLE PHOSPHATE CRYSTALS DNR /HPF SatJan 19 15:21:00 EDT 2019 URIC ACID CRYSTALS DNR /HPF Mo n Jan 19 15:21:00 EDT 2019 AMORPHOUS SEDIMENT DNR /HPF Mo n Jan 19 15:21:00 EDT 2019 CRYSTALS DNR /HPF SatJan 19 1 5:21:00 EDT 2019 HYALINE CAST 0-5 /LPF SatJan 19 15:21:00 EDT 2019 GRANULAR CAST DNR /LPF SatJan 19 15:21:00 EDT 2019 CASTS DNR /LPF SatJan 19 15:2 1:00 EDT 2019 YEAST DNR /HPF SatJan 19 15:2 1:00 EDT 2019 COMMENTS SatJan 19 1 5:21:00 EDT 2019 NOTE DNR SatJan 19 15:21 :00 EDT 2019 WHITE BLOOD CELL COUNT TNP Thousand/uL SatJan 19 15:21:00 EDT 2019 RED BLOOD CELL COUNT DNR Million/uL SatJan 19 15:21:00 EDT 2019 HEMOGLOBIN DNR g/dL SatJan 19 15:21:00 EDT 2019 HEMATOCRIT DNR % SatJan 19 15:21:00 EDT 2019 MCV DNR fL SatJan 19 15:21: 00 EDT 2019 MCH DNR pg SatJan 19 15:21: 00 EDT 2019 MCHC DNR g/dL SatJan 19 15:21 :00 EDT 2019 RDW DNR % SatJan 19 15:21: 00 EDT 2019 PLATELET COUNT DNR Thousand/uL Jan 19 15:21:00 EDT 2019 MPV DNR fL SatJan 19 15:21: 00 EDT 2019 ABSOLUTE NEUTROPHILS DNR cells/uL SatJan 19 15:21:00 EDT 2019 ABSOLUTE BAND NEUTROPHILS DNR cells/uL SatJan 19 15:21:00 EDT 2019 ABSOLUTE METAMYELOCYTES DNR cells/uL SatJan 19 15:21:00 EDT 2019 ABSOLUTE MYELOCYTES DNR cells/uL SatJan 19 15:21:00 EDT 2019 ABSOLUTE PROMYELOCYTES DNR cells/uL SatJan 19 15:21:00 EDT 2019 ABSOLUTE LYMPHOCYTES DNR cells/uL SatJan 19 15:21:00 EDT 2019 ABSOLUTE MONOCYTES DNR cells/uL SatJan 19 15:21:00 EDT 2019 ABSOLUTE EOSINOPHILS DNR cells/uL SatJan 19 15:21:00 EDT 2019 ABSOLUTE BASOPHILS DNR cells/uL SatJan 19 15:21:00 EDT 2019 ABSOLUTE BLASTS DNR cells/uL SatJan 19 15:21:00 EDT 2019 ABSOLUTE NUCLEATED RBC DNR cells/uL SatJan 19 15:21:00 EDT 2019 NEUTROPHILS DNR % Mon Aug 1 2 15:21:00 EDT 2019 BAND NEUTROPHILS DNR % [facility] Jan 12 15:21:00 EDT 2019 METAMYELOCYTES DNR % Mon Au g 12 15:21:00 EDT 2019 MYELOCYTES DNR % [facility] Jan 12 15:21:00 EDT 2019 PROMYELOCYTES DNR % [facility] Jan 12 15:21:00 EDT 2019 LYMPHOCYTES DNR % [facility] Jan 1 2 15:21:00 EDT 2019 REACTIVE LYMPHOCYTES DNR % [facility] Jan 12 15:21:00 EDT 2019 MONOCYTES DNR % [facility] Jan 12 15:21:00 EDT 2019 EOSINOPHILS DNR % [facility] Jan 1 2 15:21:00 EDT 2019 BASOPHILS DNR % [facility] Jan 12 15:21:00 EDT 2019 BLASTS DNR % [facility] Jan 12 15: 21:00 EDT 2019 NUCLEATED RBC DNR /100 WBC Mon A ug 12 15:21:00 EDT 2019 COMMENT(S) DNR [facility] Jan 19 15:21:00 EDT 2019 HCG, QL, URINE NEGATIVE Mon Au g 12 15:21:00 EDT 2019 BUPRENORPHINE 530 ng/mL SatJan 23 09:21:00 EDT 2019 NORBUPRENORPHINE >1000 ng/mL SatJan 23 09:21:00 EDT 2019 Benzodiazepines NEGATIVE ng/mL F Jan 23 09:21:00 EDT 2019 Alphahydroxyalprazolam DNR ng/mL SatJan 23 09:21:00 EDT 2019 Alphahydroxymidazolam DNR ng/mL SatJan 23 09:21:00 EDT 2019 Alphahydroxytriazolam DNR ng/mL SatJan 23 09:21:00 EDT 2019 Aminoclonazepam DNR ng/mL Sat 16 09:21:00 EDT 2019 Hydroxyethylflurazepam DNR ng/mL SatJan 23 09:21:00 EDT 2019 Lorazepam DNR ng/mL SatJan 23 09:21:00 EDT 2019 Nordiazepam DNR ng/mL Sat 1 6 09:21:00 EDT 2019 Oxazepam DNR ng/mL SatJan 23 0 9:21:00 EDT 2019 Temazepam DNR ng/mL SatJan 23 09:21:00 EDT 2019 Confirmation Testing Performed at: DNR SatJan 23 09:21:00 EDT 2019 COMMENT SatJan 23 09 :21:00 EDT 2019 Cocaine Metabolite NEGATIVE ng/mL SatJan 23 09:21:00 EDT 2019 Benzoylecgonine DNR ng/mL Fri A ug 16 09:21:00 EDT 2019 Confirmation Testing Performed at: DNR SatJan 23 09:21:00 EDT 2019 COMMENT SatJan 23 09 :21:00 EDT 2019 Alcohol, Ethyl NEGATIVE mg/dL Fr i Jan 16 09:21:00 EDT 2019 Alcohol, Ethyl DNR mg/dL Fri Au g 16 09:21:00 EDT 2019 Confirmation Testing Performed at: DNR SatJan 23 09:21:00 EDT 2019 COMMENT SatJan 23 09 :21:00 EDT 2019 Marijuana Metabolite 20 NEGATIVE ng/mL SatJan 23 09:21:00 EDT 2019 Marijuana Metabolite DNR ng/mL SatJan 23 09:21:00 EDT 2019 Confirmation Testing Performed at: DNR SatJan 23 09:21:00 EDT 2019 COMMENT SatJan 23 09 :21:00 EDT 2019 Opiates NEGATIVE ng/mL SatJan 08 6 09:21:00 EDT 2019 Codeine DNR ng/mL SatJan 23 09 :21:00 EDT 2019 Hydrocodone DNR ng/mL SatJan 08 6 09:21:00 EDT 2019 Hydromorphone DNR ng/mL SatJan 23 09:21:00 EDT 2019 Morphine DNR ng/mL SatJan 23 0 9:21:00 EDT 2019 Norhydrocodone DNR ng/mL Sat Au g 16 09:21:00 EDT 2019 Confirmation Testing Performed at: DNR SatJan 23 09:21:00 EDT 2019 COMMENT SatJan 23 09 :21:00 EDT 2019 SYNTHETIC CANNABINOIDS, QL, (U) NEGATIVE CONFIRMED SatFeb 04 14:04:00 EDT 2019 SYNTHETIC CANNABINOIDS CONFIRM: NEGATIVE SatFeb 04 14:04:00 EDT 2019 COMMENT see note SatFeb 04 14 :04:00 EDT 2019 Amphetamines NEGATIVE ng/mL SatFeb 04 14:04:00 EDT 2019 Amphetamine DNR ng/mL Sat 2 8 14:04:00 EDT 2019 Methamphetamine DNR ng/mL Sat 28 14:04:00 EDT 2019 Confirmation Testing Performed at: DNR SatFeb 04 14:04:00 EDT 2019 COMMENT SatFeb 04 14 :04:00 EDT 2019 Barbiturates NEGATIVE CONFIRMED ng/mL SatFeb 04 14:04:00 EDT 2019 Amobarbital NEGATIVE ng/mL Sat A ug 28 14:04:00 EDT 2018 Butalbital NEGATIVE ng/mL Sat 14:04:00 EDT 2018 Pentobarbital NEGATIVE ng/mL SatFeb 04 14:04:00 EDT 2018 Phenobarbital NEGATIVE ng/mL SatFeb 04 14:04:00 EDT 2018 Secobarbital NEGATIVE ng/mL SatFeb 04 14:04:00 EDT 2019 Confirmation Testing Performed at: DNR SatFeb 04 14:04:00 EDT 2019 COMMENT SatFeb 04 14 :04:00 EDT 2019 Benzodiazepines NEGATIVE ng/mL W Feb 04 14:04:00 EDT 2018 Alphahydroxyalprazolam DNR ng/mL SatFeb 04 14:04:00 EDT [...] DNR ng/mL SatFeb 04 1 4:04:00 EDT 2018 Temazepam DNR ng/mL SatFeb 04 14:04:00 EDT [...] Sat Jun 27 15 :16:00 EST 2019 Marijuana Metabolite 20 NEGATIVE ng/mL Sat Jun 27 15:16:00 EST 2019 Marijuana Metabolite DNR ng/mL Sat Jun 27 15:16:00 EST 2020 Confirmation Testing Performed at: DNR Sat Jun 27 15:16:00 EST 2020 COMMENT Sat Jun 27 15 :16:00 EST 2019 Opiates NEGATIVE ng/mL Sat Jun 10 15:16:00 [...] RNA, TMA, UROGENITAL TNP SatJul 31 11:33:00 EST 2020 NEISSERIA GONORRHOEAE RNA, TMA, UROGENITAL DNR SatJul 31 11:33:00 EST 2020 SURESWAB(R) TRICHOMONAS VAGINALIS RNA, QL, TMA TNP SatJul 31 11:33:00 EST 2020 SURESWAB(R), MYCOPLASMA GENITALIUM,REALTIME PCR TNP SatJul 31 11:33:00 EST 2020 ASSAY DETAILS TNP SatJul 31 11:33:00 EST 2020 CHLAMYDIA TRACHOMATIS RNA, TMA, UROGENITAL Not Detected SatJul 31 11:33:00 EST 2020 NEISSERIA GONORRHOEAE RNA, TMA, UROGENITAL Not Detected SatJul 31 11:33:00 EST 2020 SURESWAB(R) TRICHOMONAS VAGINALIS RNA, QL, T MA Detected SatJul 31 11:33:00 EST 2020 SURESWAB(R), MYCOPLASMA GENITALIUM,REALTIME PCR Not Detected SatJul 31 11:33:00 EST 2020 ASSAY DETAILS See Note SatJul 31 11:33:00 EST 2020 GLUCOSE 79 mg/dL SatJul 31 11 :33:00 EST 2020 UREA NITROGEN (BUN) 11 mg/dL F ri Jul 31 11:33:00 EST 2020 CREATININE 0.78 mg/dL Sat Feb 11:33:00 EST 2020 eGFR NON-AFR. URUGUAYAN 101 mL/min/1.73m2 Sat Feb 11:33:00 2020 eGFR 117 mL/min/1.73m2 Sat Feb 11:33:00 2020 BUN/CREATININE RATIO NOT APPLICABLE (calc ) Sat Feb 11:33:00 EST 2019 SODIUM 135 mmol/L Sat Feb 11: 33:00 EST 2020 POTASSIUM 4.8 mmol/L Sat Feb 11:33:00 EST 2020 CHLORIDE 102 mmol/L Sat Feb 1 1:33:00 2020 CARBON DIOXIDE 26 mmol/L Sat Fe b 11:33:00 2020 CALCIUM 9.0 mg/dL Sat Feb 11 :33:00 2020 PROTEIN, TOTAL 6.4 g/dL Sat Fe b 11:33:00 2020 ALBUMIN 3.6 g/dL Sat Feb 11 :33:00 2020 GLOBULIN 2.8 g/dL (calc) Sat Feb 11:33:00 2020 ALBUMIN/GLOBULIN RATIO 1.3 (calc) Sat Feb 11:33:00 2020 BILIRUBIN, TOTAL 0.3 mg/dL Sat Feb 11:33:00 2020 ALKALINE PHOSPHATASE 71 U/L Sat Feb 11:33:00 EST 2020 AST 19 U/L Sat Feb 11:33: 00 EST 2020 ALT 19 U/L Sat Feb 11:33: 00 EST 2020 WHITE BLOOD CELL COUNT 9.0 Thousand/uL Sat Feb 11:33:00 2020 RED BLOOD CELL COUNT 4.58 [...] EST 2020 MPV 11.4 fL Sat Feb 21 11:33: 00 EST 2020 ABSOLUTE NEUTROPHILS 5724 cells/uL Fri Feb 21 11:33:00 EST 2020 ABSOLUTE BAND NEUTROPHILS DNR cells/uL Fri Feb 21 11:33:00 EST 2020 ABSOLUTE METAMYELOCYTES DNR cells/uL Sat Feb 21 11:33:00 EST 2020 ABSOLUTE MYELOCYTES DNR cells/uL Sat Feb 21 11:33:00 EST 2020 ABSOLUTE PROMYELOCYTES DNR cells/uL Fri Feb 21 11:33:00 EST 2020 ABSOLUTE LYMPHOCYTES 2682 cells/uL Fri Feb 21 11:33:00 EST 2020 ABSOLUTE MONOCYTES 459 cells/uL Sat Feb 21 11:33:00 EST 2020 ABSOLUTE EOSINOPHILS 99 cells/uL Sat Feb 21 11:33:00 EST 2020 ABSOLUTE BASOPHILS 36 cells/uL F ri Feb 11:33:00 EST 2020 ABSOLUTE BLASTS DNR cells/uL Sat Feb 21 11:33:00 EST 2020 ABSOLUTE NUCLEATED RBC DNR cells/uL Sat Feb 11:33:00 EST 2020 NEUTROPHILS 63.6 % Fri Feb 2 1 11:33:00 EST 2020 BAND NEUTROPHILS DNR % Sat Feb 11:33:00 EST 2020 METAMYELOCYTES DNR % Sat Fe b 21 11:33:00 EST 2020 MYELOCYTES DNR % Sat Feb 21 11:33:00 EST 2020 PROMYELOCYTES DNR % Sat Feb 21 11:33:00 EST 2020 LYMPHOCYTES 29.8 % Fri Feb 2 1 11:33:00 EST 2020 REACTIVE LYMPHOCYTES DNR % Sat Feb 21 11:33:00 EST 2020 MONOCYTES 5.1 % Sat Feb 21 11:33:00 EST 2020 EOSINOPHILS 1.1 % Fri Feb 2 1 11:33:00 EST 2020 BASOPHILS 0.4 % Fri Feb 21 11:33:00 EST 2020 BLASTS DNR % Sat Feb 21 11: 33:00 EST 2020 NUCLEATED RBC DNR /100 WBC Fri F eb 21 11:33:00 EST 2020 COMMENT(S) DNR Sat Feb 11:33:00 EST 2020 HEPATITIS C ANTIBODY REACTIVE Sat Feb 11:33:00 EST 2020 SIGNAL TO CUT-OFF 31.20 Sat Feb 11:33:00 EST 2020 RPR (DX) W/REFL TITER AND CONFIRMATORY TESTI NG NON-REACTIVE Sat Feb 11:33:00 EST 2020 HCV RNA, QUANTITATIVE REAL TIME PCR Fri Feb 07 08:31:00 EST 2020 HCV RNA, QUANTITATIVE REAL TIME PCR Fri Feb 07 08:31:00 EST 2020 HCV RNA, QUANTITATIVE REAL TIME PCR Fri Feb 07 09:29:00 EST 2020 HCV RNA, QUANTITATIVE REAL TIME PCR Fri Feb 07 09:29:00 EST 2020 HCV RNA, QUANTITATIVE REAL TIME PCR <15 NOT DETECTED IU/mL Tue Feb 11 05:49:00 EST 2020 HCV RNA, QUANTITATIVE REAL TIME PCR <1.18 NOT DETECTED Log IU/mL Tue Feb 11 05:49:00 EST 2020 COMMENT Tue Feb 11 05 :49:00 EST 2020 HCV [...] 06:57:00 EST 2020 NECROINFLAMMAT ACT GRADE DNR Jei Feb 27 06:57:00 EST 2020 NECROINFLAMMAT INTERP DNR Jie Feb 27 06:57:00 EST 2020 ALPHA 2 MACROGLOBULIN DNR Jie Feb 27 06:57:00 2019 HAPTOGLOBIN DNR Jie Feb 2 7 06:57:00 2020 APOLIPOPROTEIN A1 DNR Jie Feb 27 06:57:00 2020 TOTAL BILIRUBIN DNR Jie F eb 27 06:57:00 2020 GGT DNR Jie Feb 27 06:57: 00 2020 ALT DNR Jie Feb 27 06:57: 00 2020 REFERENCE ID DNR Jie Feb 27 06:57:00 2020 FOOTNOTE DNR Jie Feb 27 0 6:57:00 2019 SODIUM 138 mmol/L SatAug 10 23: 32:00 2019 POTASSIUM 4.2 mmol/L SatAug 10 23:32:00 2019 CHLORIDE 106 mmol/L SatAug 10 2 3:32:00 2019 CARBON DIOXIDE 23 mmol/L Ma r 23:32:00 2019 CREATININE, RANDOM URINE 104 mg/dL SatAug 10 23:32:00 2019 ALBUMIN, URINE 92.9 mg/dL [facility] r 03 23:32:00 2019 ALBUMIN/CREATININE RATIO, RANDOM URINE 893 mcg/mg creat SatAug 10:32:00 2019 CREATININE 0.71 mg/dL SatAug 10 23:32:00 2019 eGFR NON-AFR. URUGUAYAN 113 mL/min/1.73m2 SatAug 10:32:00 2019 eGFR 132 mL/min/1.73m2 SatAug 10:32:00 2019 HEMOGLOBIN 13.2 g/dL SatAug 10:32:00 2019 PARATHYROID HORMONE, INTACT 34 pg/mL SatAug 10:32:00 2019 CALCIUM 8.8 mg/dL SatAug 10 :32:00 2019 PHOSPHATE ( PHOSPHORUS) 4.3 mg/dL SatAug 10:32:00 2019 VITAMIN D,25-OH,TOTAL,IA 19 ng/mL SatAug 10:32:00 2019 PROTEIN, TOTAL 6.8 g/dL [facility] r 03 :32:00 2019 ALBUMIN 3.7 g/dL SatAug 10 :32:00 2019 GLOBULIN 3.1 g/dL (calc) SatAug 10:32:00 2019 ALBUMIN/GLOBULIN RATIO 1.2 (calc) SatAug 10:32:00 2019 BILIRUBIN, TOTAL 0.2 mg/dL SatAug 10 23:32:00 EST 2020 BILIRUBIN, DIRECT 0.0 mg/dL SatAug 10 23:32:00 EST 2020 BILIRUBIN, INDIRECT 0.2 mg/dL [...] 00 EST 2020 PLATELET COUNT 364 Thousand/uL Aug 10 23:32:00 EST 2020 MPV 10.6 [...] 10 23:32:00 EST 2020 METAMYELOCYTES DNR % e Ma r 03 23:32:00 EST 2020 MYELOCYTES DNR [...] 2020 HEPATITIS A IGM BORDERLINE Sat b 29 05:41:00 EST 2020 HEPATITIS A IGM [...] 07 12:48:00 EST 2020 Alphahydroxyalprazolam DNR ng/mL Fri [...] ng/mL Fri Feb 28 1 2:48:00 EST 2019 Norhydrocodone DNR ng/mL Sat 12:48:00 EST 2019 Confirmation Testing Performed at: DNR SatAug 07 12:48:00 EST 2019 COMMENT SatAug 07 12 :48:00 EST 2019 Buprenorphine SatAug 07 12:48:00 EST 2020 Norbuprenorphine SatAug 07 12:48:00 EST 2020 CREATININE, RANDOM URINE 30 mg/dL Sun Mar [...] Sat Mar 21 12 :48:00 EDT 2019 Alcohol, Ethyl NEGATIVE mg/dL Sa t Mar 21 12:48:00 EDT 2019 Alcohol, Ethyl DNR mg/dL Sat Ma r [...] Sat Mar 21 12 :48:00 EDT 2019 Opiates NEGATIVE ng/mL Sat Mar 2 1 12:48:00 EDT 2019 Codeine DNR ng/mL Sat Aug 28 12 :48:00 EDT 2019 Hydrocodone DNR ng/mL Sat Mar 2 1 12:48:00 EDT 2019 Hydromorphone DNR ng/mL Sat Aug 21 12:48:00 EDT 2019 Morphine DNR ng/mL Sat Mar 21 1 2:48:00 EDT 2019 Norhydrocodone DNR ng/mL Sat Ma r 21 12:48:00 EDT 2019 Confirmation Testing Performed at: DNR Sat Mar 21 12:48:00 EDT 2019 COMMENT Sat Mar 21 12 :48:00 EDT 2019 Buprenorphine 101 ng/mL Sat Aug 28 12:48:00 EDT 2019 Norbuprenorphine 158 ng/mL Sat Mar 21 12:48:00 EDT 2019 COMMENT Sat Mar 21 12 :48:00 EDT 2019 CREATININE, RANDOM URINE 59 mg/dL Jie Sep 02 11:27:00 EDT 2019 Benzodiazepines NEGATIVE ng/mL T hu Sep 02 11:27:00 EDT 2019 Alphahydroxyalprazolam DNR ng/mL Jie Sep 02 11:27:00 EDT 2019 Alphahydroxymidazolam DNR ng/mL Jie Sep 02 11:27:00 EDT 2019 Alphahydroxytriazolam DNR ng/mL Jie Sep 02 11:27:00 EDT 2019 Aminoclonazepam DNR ng/mL Jie M ar 26 11:27:00 EDT 2019 Hydroxyethylflurazepam DNR ng/mL Jie Sep 02 11:27:00 EDT 2019 Lorazepam DNR ng/mL Jie Sep 02 11:27:00 EDT 2019 Nordiazepam DNR ng/mL Jie Mar 2 6 [...] Jie Sep 02 11 :27:00 EDT 2020 Opiates NEGATIVE ng/mL Jie Aug 2 6 11:27:00 EDT 2020 Codeine DNR ng/mL Jie Sep 02 11 :27:00 EDT 2020 Hydrocodone DNR ng/mL Jie Aug 2 6 11:27:00 EDT 2020 Hydromorphone DNR ng/mL Jie Sep 02 11:27:00 EDT 2020 Morphine DNR ng/mL Jie Aug 26 1 1:27:00 EDT 2020 Norhydrocodone DNR ng/mL Jie Ma r 26 11:27:00 EDT 2020 Confirmation Testing Performed at: DNR Jie Sep 02 11:27:00 EDT 2020 COMMENT Jie Sep 02 11 :27:00 EDT 2019 Buprenorphine Jie Sep 02 11:27:00 EDT 2019 Norbuprenorphine Jie Sep 02 11:27:00 EDT 2019 CREATININE, RANDOM URINE 15 mg/dL SatSep 17 01:48:00 EDT 2019 Fentanyl NEGATIVE ng/mL SatSep 17:48:00 EDT 2019 Norfentanyl NEGATIVE ng/mL Sat pr 03 10:48:00 EDT 2019 COMMENT SatSep 17 :48:00 EDT 2019 Benzodiazepines NEGATIVE ng/mL F Sep 17:48:00 EDT 2019 Alphahydroxyalprazolam DNR ng/mL [...] 2019 Benzoylecgonine DNR ng/mL Sat pr 10 01:48:00 EDT 2020 Confirmation Testing Performed at: DNR SatSep 17:48:00 EDT 2019 COMMENT SatSep 17 01 :48:00 EDT 2020 Alcohol, Ethyl NEGATIVE mg/dL Fr i Apr 10 01:48:00 EDT 2020 Alcohol, Ethyl DNR mg/dL Fri Ap r 10 01:48:00 EDT 2019 Confirmation Testing Performed at: DNR SatSep 17 01:48:00 EDT 2019 COMMENT SatSep 17 01 :48:00 EDT 2019 Marijuana Metabolite 20 NEGATIVE ng/mL SatSep 17 01:48:00 EDT 2020 Marijuana Metabolite DNR ng/mL SatSep 17 01:48:00 EDT 2020 Confirmation Testing Performed at: [...] 0 1:48:00 EDT 2020 Norhydrocodone DNR ng/mL Sat Ap r 10 01:48:00 EDT 2019 Confirmation [...] 02:02:00 EDT 2019 Benzoylecgonine DNR ng/mL Sat 02:02:00 EDT 2019 Confirmation [...] Cotinine 1323.00PRESUMPTIVE POSI TIVEPRESUMPTIVE POSITIVE ng/mL SatOctober 15:17:08 EDT 2020 EDDP -121.00NegativeNegative ng/ mL [...] Cannabinoids -12.20NegativeNegative ng/mL SatOctober 15 15:17:09 EDT 2019 Tramadol 16.00NegativeNegative n g/mL SatOctober 15 15:17:10 EDT 2019 Tricyclics 523.00PRESUMPTIVE POS ITIVEPRESUMPTIVE POSITIVE ng/mL SatOctober 15 15:17:10 EDT 2019 Ecstasy (MDMA) 94.00NegativeNegativ e ng/mL SatOctober 15 15:17:10 EDT 2020 Buprenorphine 250Positive - Cons istentPOSITIVE> ng/mL SatOctober 16 14:39:04 EDT 2019 Norbuprenorphine 393.530Positive - ConsistentPOSITIVE ng/mL SatOctober 16 14:39:04 EDT 2019 Naloxone 834.520Positive - Incon sistentPOSITIVE ng/mL SatOctober 16 14:39:04 EDT 2019 Norfentanyl 0.210NegativeNegative * ng/mL SatOctober 16 14:39:04 EDT 2020 Fentanyl 0.100NegativeNegative n g/mL SatOctober 16 14:39:04 EDT 2019 Carfentanil 0.020NegativeNegative * ng/mL SatOctober 16 14:39:04 EDT 2019 Norcarfentanil 0.230NegativeNegativ e ng/mL SatOctober 16 14:39:04 EDT 2020 Sufentanil 0.160NegativeNegative ng/mL SatOctober 16 14:39:04 EDT 2020 Methamphetamine 6.710Negative Negative ng/mL SatOctober 16 14:39:04 EDT 2020 Amphetamine 0.000NegativeNegative * ng/mL SatOctober 16 14:39:04 EDT 2019 Desmethyldoxepin 1.090Negative *Negative ng/mL SatOctober 16 14:39:05 EDT 2019 Doxepin 8.060NegativeNegative ng /mL SatOctober 16 14:39:05 EDT 2019 Imipramine 6.300NegativeNegative ng/mL SatOctober 16 14:39:05 EDT 2019 Nortriptyline 5.360NegativeNegative ng/mL SatOctober 16 14:39:05 EDT 2019 Amitriptyline 11.540NegativeNegativ e ng/mL SatOctober 16 14:39:05 EDT 2019 Clomipramine 8.540NegativeNegative* ng/mL [facility] [place] October 16 14:39:05 EDT 2019 Desipramine 5.480NegativeNegative * ng/mL SatOctober 16 14:39:06 EDT 2019 Creatinine 204.1NORMALNORMAL mg/ dL Jie Feb 03 14:38:10 T 2019 pH 6.3NORMALNORMAL SatFeb 03 14:38:32 EDT 2020 Oxidants -17.00NegativeNegative mcg/mL Jie Feb 03 14:36:48 EDT 2019 Validity Result VALIDVALIDVALID SatFeb 03 14:45:22 EDT 2020 Amphetamines 209.00NegativeNegative ng/mL Jie Feb 03 14:33:53 EDT 2019 Barbiturates -15.00NegativeNegative ng/mL Jie Feb 03 14:34:12 EDT 2020 Benzodiazepines -31.00Negative *Negative ng/mL Jie Feb 03 14:34:21 EDT 2020 Buprenorphine 0.80NegativeNegative* ng/mL Jie Feb 03 14:34:27 EDT 2020 Cocaine Metabolites 175.00Negati veNegative ng/mL Jie Feb 03 14:35:00 EDT 2020 Cotinine 1671.00PRESUMPTIVE POSI TIVEPRESUMPTIVE POSITIVE ng/mL Jie Feb 03 14:35:07 EDT 2020 EDDP -91.00NegativeNegative ng/m L [facility] Feb 03 14:35:14 EDT 2020 Ethyl Glucuronide 26.00Negative* Negative ng/mL Jie Feb 03 14:35:21 EDT 2020 Ethyl Alcohol 7.00NegativeNegative* mg/dL [facility] Feb 03 14:35:46 EDT 2020 Fentanyl 0.100NegativeNegative n g/mL [facility] Feb 03 14:35:53 EDT 2020 Heroin (6-AM) -1.30NegativeNegative ng/mL [facility] Feb 03 14:35:59 EDT 2020 Methadone -37.00NegativeNegative ng/mL [facility] Feb 03 14:36:13 EDT 2020 Opiates -32.00NegativeNegative n g/mL [facility] Feb 03 14:36:28 EDT 2020 Synthetic Opiates -13.00Negative Negative ng/mL [facility] Feb 03 14:37:06 EDT 2020 Phencyclidine -4.90NegativeNegative ng/mL [facility] Feb 03 14:37:16 EDT 2020 Cannabinoids 7.80NegativeNegative * ng/mL [facility] Feb 03 14:37:27 EDT 2020 Tramadol -18.00NegativeNegative ng/mL [facility] Feb 03 14:37:51 EDT 2020 Tricyclics 16.00NegativeNegative ng/mL [facility] Feb 03 14:38:40 EDT 2020 Ecstasy (MDMA) -1.00NegativeNegativ e ng/mL [facility] Feb 03 14:38:49 EDT 2020 Buprenorphine 0.000Negative - In consistentNegative ng/mL SatFeb 04 11:55:39 EDT 2020 Norbuprenorphine 0.620Negative - InconsistentNegative ng/mL SatFeb 04 11:55:39 EDT 2020 Naloxone 0.000Negative - Inconsi stentNegative ng/mL SatFeb 04 11:55:39 T 2019 Creatinine 30.8NORMALNORMAL mg/d L SatApr 14 20:51:41 2019 pH 8.2NORMALNORMAL SatApr 14 20:51:41 2019 Oxidants -14.00NegativeNegative mcg/mL SatApr 14 20:51:41 2019 Validity Result VALIDVALIDVALID SatApr 14 21:00:28 2019 Amphetamines 62.00NegativeNegative* ng/mL SatApr 14:51:41 2019 Barbiturates 0.00NegativeNegative * ng/mL SatApr 14 20:51:41 2019 Benzodiazepines -3.00Negative Negative ng/mL SatApr 14 20:51:41 2019 Buprenorphine 43.40PRESUMPTIVE P OSITIVEPRESUMPTIVE POSITIVE ng/mL SatApr 14 20:51:41 2019 Cocaine Metabolites 7.00Negative Negative ng/mL SatApr 14 20:51:41 2019 Cotinine 763.00PRESUMPTIVE POSIT CHIARAPRESUMPTIVE POSITIVE ng/mL SatApr 14 20:51:41 2019 EDDP -34.00NegativeNegative ng/m L SatApr 14 20:51:41 2019 Ethyl Glucuronide -12.00Negative Negative ng/mL SatApr 14 20:51:41 2019 Ethyl Alcohol 1.00NegativeNegative* mg/dL SatApr 14 20:51:41 2019 Fentanyl 0.300NegativeNegative n g/mL SatApr 14 20:51:41 2019 Heroin (6-AM) 1.10NegativeNegative* ng/mL SatApr 14 20:51:41 2019 Methadone -11.00NegativeNegative ng/mL Jie Nov 05 20:51:41 2019 Opiates 0.00NegativeNegative ng/ mL SatApr 14 [...] 2019 Barbiturates 41.00NegativeNegative* ng/mL SatMay 18 17:21:04 EST 2020 Benzodiazepines 14.00Negative Negative ng/mL [facility] May 18 17:21:04 2019 Buprenorphine 121.90PRESUMPTIVE POSITIVEPRESUMPTIVE POSITIVE ng/mL SatMay 18 17:21:25 2019 Cocaine Metabolites -16.00Negati veNegative ng/mL [facility] May 18 17:21:04 2019 Cotinine 988.00PRESUMPTIVE POSIT CHIARAPRESUMPTIVE POSITIVE ng/mL [facility] May 18 17:21:37 2019 EDDP -145.00NegativeNegative ng/ mL [facility] May 18 17:21:05 2019 Ethyl Glucuronide 42.00Negative* Negative ng/mL [facility] May 18 20:44:07 2019 Ethyl Alcohol -3.00NegativeNegative mg/dL [facility] May 18 17:21:06 2019 Fentanyl 0.500NegativeNegative n g/mL [facility] May 18 17:21:06 2019 Heroin (6-AM) 2.80NegativeNegative* ng/mL [facility] May 18 17:21:06 2019 Methadone -15.00NegativeNegative ng/mL [facility] May 18 17:21:06 2019 Opiates -36.00NegativeNegative n g/mL [facility] May 18 17:21:06 2019 Synthetic Opiates -17.00Negative Negative ng/mL [facility] May 18 17:21:06 2019 Phencyclidine 23.00NegativeNegative ng/mL [facility] May 18 17:21:06 2019 Cannabinoids -16.40NegativeNegative ng/mL [facility] May 18 17:21:06 2019 Tramadol 37.00NegativeNegative n g/mL [facility] May 18 17:21:06 2019 Tricyclics 594.00PRESUMPTIVE POS ITIVEPRESUMPTIVE POSITIVE ng/mL [facility] May 18 17:21:36 2019 Ecstasy (MDMA) [...] SatMay 19 16:33:47 2019 Nortriptyline 3.020NegativeNegative ng/mL Jie [...] 02 08:20:16 2019 Doxepin 4.360NegativeNegative ng /mL Jie Jun 02 08:20:16 2019 Imipramine 5.420NegativeNegative ng/mL Jie Jun 02 08:20:16 2019 Nortriptyline 0.360NegativeNegative ng/mL Jie Jun 02 08:20:16 2019 Amitriptyline 0.000NegativeNegative ng/mL Jie Jun 02 08:20:16 2019 Clomipramine 10.470NegativeNegative ng/mL Jie Jun 02 08:20:16 2019 Desipramine 0.000NegativeNegative * ng/mL [...] 2020 Barbiturates -2.00NegativeNegative* ng/mL SatJul 12 19:41:14 2020 Benzodiazepines 3.00NegativeNegativ e ng/mL SatJul 12 19:41:14 2020 Buprenorphine 111.10PRESUMPTIVE POSITIVEPRESUMPTIVE POSITIVE ng/mL SatJul [...] SatJul 12 19:41:15 2020 Cannabinoids -5.60NegativeNegative* ng/mL Jul 12 19:41:15 2020 Tramadol 42.00NegativeNegative n g/mL SatJul 12 19:41:15 2020 Tricyclics 547.00PRESUMPTIVE POS ITIVEPRESUMPTIVE POSITIVE ng/mL SatJul 12 19:41:15 2020 Ecstasy (MDMA) 50.00NegativeNegativ e ng/mL SatJul 12 19:41:16 2020 Buprenorphine 216.190Positive - ConsistentPOSITIVE ng/mL [facility] Jul 13 11:17:06 2020 Norbuprenorphine 476.890Positive - ConsistentPOSITIVE ng/mL [facility] Jul 13 11:17:06 2020 Naloxone 629.130Positive - Incon sistentPOSITIVE ng/mL [facility] Jul 13 11:17:06 2020 Norfentanyl 0.610NegativeNegative * ng/mL [facility] Jul 13 11:17:06 2020 Fentanyl 0.040NegativeNegative n g/mL [facility] Jul 13 11:17:06 2020 Carfentanil 0.040NegativeNegative * ng/mL SatJul 13 11:17:06 2020 Norcarfentanil 0.190NegativeNegativ e ng/mL SatJul 13 11:17:06 2020 Sufentanil 0.080NegativeNegative ng/mL Satb 11:17:06 2020 Desmethyldoxepin 0.000Negative *Negative ng/mL SatJul 13 11:17:06 2020 Doxepin 0.000NegativeNegative ng /mL SatJul 13 11:17:06 2020 Imipramine 3.450NegativeNegative ng/mL SatJul 13 11:17:06 2020 Nortriptyline 6.610NegativeNegative ng/mL SatJul 13 11:17:06 2020 Amitriptyline 4.260NegativeNegative ng/mL SatJul 13 11:17:06 2020 Clomipramine 12.060NegativeNegative ng/mL SatJul 13 11:17:06 2020 Desipramine 7.260NegativeNegative * ng/mL SatJul 13 11:17:06 2020 Aripiprazole 0.000NegativeNegative* ng/mL SatJul 13 10:13:02 2020 Chlorpromazine 0.160NegativeNegativ e ng/mL SatJul 13 10:13:02 EST 2020 Clozapine 0.020NegativeNegative ng/mL Satb 10:13:02 EST 2020 Fluphenazine 0.090NegativeNegative* ng/mL Satb 10:13:03 EST 2020 Haloperidol 0.040NegativeNegative * ng/mL SatJul 13 10:13:03 EST 2020 Lurasidone 0.280NegativeNegative ng/mL SatJul 13 10:13:03 2020 Olanzapine 0.140NegativeNegative ng/mL SatJul 13 10:13:03 2020 Promethazine 0.020NegativeNegative* ng/mL SatJul 13 10:13:03 2020 Quetiapine 50Positive - Consiste ntPOSITIVE> ng/mL SatJul 13 10:13:03 2020 Risperidone 0.000NegativeNegative * ng/mL SatJul 13 10:13:03 2020 Trifluoperazine 0.230Negative Negative ng/mL SatJul 13 10:13:03 2020 Ziprasidone 0.000NegativeNegative * ng/mL [facility] Jul 13 10:13:03 2020 Bupropion 50Positive - Consisten tPOSITIVE> ng/mL [facility] Jul 13 10:13:03 2020 Hydroxybupropion 50Positive - Co nsistentPOSITIVE> ng/mL [facility] Jul 13 10:13:03 2020 Trazodone 50Positive - Consisten tPOSITIVE> ng/mL [facility] Jul 13 10:13:03 2020 mCPP 50Positive - Consistent *POSITIVE> ng/mL [facility] Jul 13 10:13:03 2020 Creatinine 221.8NORMALNORMAL [...] 0.010NegativeNegative * ng/mL Sat Sep 17 07:57:44 ED2020 Lurasidone 0.870NegativeNegative ng/mL Sat Sep 17 07:57:44 ED2020 Olanzapine 0.120NegativeNegative ng/mL Mon Sep 19 07:41:23 EDT 2020 Promethazine 0.050NegativeNegative* ng/mL Sat Sep 17 07:57:44 ED2020 Quetiapine 50Positive - Consiste ntPOSITIVE> ng/mL SatSep 17 07:57:44 ED2020 Risperidone 0.000NegativeNegative * ng/mL SatSep 17 07:57:44 ED2020 Trifluoperazine 0.240Negative Negative ng/mL SatSep 17 07:57:44 ED2020 Ziprasidone 1.970NegativeNegative * ng/mL Sat Sep 17 07:57:44 ED2020 Bupropion 50Positive - Consisten tPOSITIVE> ng/mL SatSep 17 07:57:44 ED2020 Hydroxybupropion 50Positive - Co nsistentPOSITIVE> ng/mL SatSep 17 07:57:44 ED2020 Trazodone 50Positive - Consisten tPOSITIVE> ng/mL SatSep 17 07:57:44 ED2020 mCPP 50Positive - Consistent *POSITIVE> ng/mL Sat Sep 17 07:57:44 ED2020 COLOR DARK YELLOW SatDec 29 12 :55:00 ED2020 APPEARANCE TURBID SatDec 29 12:55:00 ED2020 SPECIFIC GR 1.030 Sat 2 2 12:55:00 ED2020 PH 6.0 SatDec 29 12:55:0 0 2020 GLUCOSE NEGATIVE SatDec 29 12 :55:00 EDT 2020 BILIRUBIN NEGATIVE Jie Dec 29 12:55:00 EDT 2020 KETONES NEGATIVE Jie Dec 29 12 :55:00 EDT 2020 OCCULT BLOO [...] Dec 29 12:55 :00 EDT 2020 E [id number] null GLUCOSE 92 mg/dL SatJan 04 11 [...] EDT 2020 CHLORIDE 102 mmol/L SatJan 04 1:34:00 EDT 2020 CARBON DIOX 20 mmol/L [...] cells/uL SatJan 04 11:34:00 EDT 2020 ABSOLUTE VA DNR cells/uL SatJan 04 11:34:00 EDT 2020 [...] W/ NON-REACTIVE Sat 11:34:00 EDT 2020 E [id number] null Medications Medication Directions Start Date End Date SUBOXONE (BUPRENORPHINE-NALOXONE) 4MG-1MG F ILM 1 Film TID: Three Times a Day SUBLINGUAL SatJan 13 06:00:00 EDT 2020Jan 20 05:59:00 EDT 2020 SUBOXONE (BUPRENORPHINE-NALOXONE) 4MG-1MG F [...] At Bedtime ORAL SatJan 09 06:00:00 EDT 2020Feb 06 05:59 :00 EDT 2020 SUBOXONE (BUPRENORPHINE-NALOXONE) 4MG-1MG [...] Capsule Daily ORAL SatDec 31 18:16:00 EDT 2020 Sat Jan 28 18:15:00 EDT 2020 NICOTINE 21 MG/24 [...] ACETATE) 0.15 MG/1 ACT UATION SPRAY 1 [place] BIDPRN: Twice A Day As Needed NASAL (To be given immediately when she has nosebleeds) SatDec 30 06:00:00 EDT 2020Jan 27 05:59 :00 EDT 2020 LAMICTAL (LAMOTRIGINE) 25 MG TABLET 2 Tablet HS: At Bedtime ORAL SatDec 30 06:00:00 EDT 2020Jan 27 05:59 :00 EDT 2020 ROPINIROLE HCL 0.25 MG TABLET 1 Tab let TID: Three Times a Day ORAL SatDec 30 06:00:00 EDT 2020Jan 27 05:59 :00 EDT 2020 QUETIAPINE FUMARATE 25 MG TABLET 1 Tablet TID: Three Times a Day ORAL SatDec 30 06:00:00 EDT 2020Jan 27:59 :00 EDT 2020 SEROQUEL (QUETIAPINE FUMARATE) 100 MG TABLET 1 Tablet HS: At Bedtime ORAL (Takes with 25mg of Seroquel) SatDec 30 06:00:00 EDT 2020Jan 27 05:59:00 EDT 2020 CLONIDINE HCL 0.1 MG TABLET 1 Table t TID: Three Times a Day ORAL (MDD 1mg. See clonidine 0.2mg) SatDec 30 06:00:00 EDT 2020Jan 27:59:00 EDT 2020 HYDROXYZINE HCL 25 MG TABLET 1 Tabl et TID: Three Times a Day ORAL SatDec 30:00:00 ED2020Jan 27:59 :00 2020 SINGULAIR (MONTELUKAST SODIUM) 10 MG TABLET 1 Tablet Daily ORAL SatDec 30:00:00 ED2020Jan 27:59 :00 EDT 2020 VENLAFAXINE HCL 37.5 MG CAPSULE, EXTENDED RE LEASE 1 Capsule Daily ORAL SatDec 30:00:00 EDT 2020Jan 27:59 :00 EDT 2020 MIRALAX (POLYETHYLENE GLYCOL 3 350) 17 GM/1 DOSE POWDER FOR SOLUTION 17 gm Daily As Needed ORAL SatDec 30 06:00:00 EDT 2020Jan 27:59:00 ED2020 ACETAMINOPHEN 500 MG CAPSULE 2 caps ule Q6-8HPRN: Every 6-8 Hours As Needed ORAL (MDD 8 Tabs) SatDec 28 16:02:00 ED2020Jan 25 16:01:00 EDT 2020 BENADRYL ALLERGY (DIPHENHYDRAM INE HYDROCHLORIDE) 25 MG TABLET 1 tablet TIDPRN: Three Times A Day As Needed ORAL SatDec 28 16:02:00 ED2020Jan 25 16:01:00 ED2020 COLACE (DOCUSATE SODIUM) 100 MG CAPSULE, LIQ UID FILLED 1 capsule Daily As Needed ORAL SatDec 28 16:02:00 ED2020Jan 25 16:01:00 EDT 2020 FIBER-LAX 625 MG TABLET 2 tablet VA N: As Needed ORAL (MDD 4 Tabs) [...] EDT 2020Jan 25 16:05 :00 EDT 2020 PRAZOSIN HCL 1 MG CAPSULE 1 Capsule HS: At Bedtime ORAL SatDec 28 16:07:00 EDT 2020Jan 25 16:06 :00 EDT 2020 WELLBUTRIN XL (BUPROPION HYDRO CHLORIDE) 150 MG TABLET, EXTENDED RELEASE, 24 HR 1 Tablet Daily ORAL SatDec 28 16:11:00 EDT 2020Jan 25 16:10:00 EDT 2020 SENNA 8.6 MG TABLET 1 Tablet BIDPRN : Twice A Day As Needed ORAL SatDec 28 16:13:00 EDT 2020Jan 25 16:12 :00 EDT 2020 ANORO ELLIPTA (UMECLIDINIUM BR OMIDE-VILANTEROL [...] EDT 2020Jan 09 09:27 :00 EDT 2020 cloNIDine HCl 0.1 MG TAB Take one ( 1) tablet by mouth three times a day, as needed SatDec 09 00:00:00 EDT 2020Feb 06 00:00:00 EDT 2020 Minipress 1 MG CAP Take one (1) cap robert by mouth daily SatDec 09 00:00:00 EDT 2020Feb 06 00:00 :00 EDT 2020 SEROquel 100 MG TAB Take one (1) ta blet by mouth at bedtime SatDec 09 00:00:00 EDT 2020Jan 07:00 :00 EDT 2020 Wellbutrin XL 150 MG T24 Take one ( 1) tablet by mouth daily SatDec 09:00:00 EDT 2020Feb 06:00 :00 EDT 2020 traZODone hydrochloride 150 MG TAB Take one (1) tablet by mouth at bedtime SatDec 09:00:00 ED2020Feb 06:00:00 ED2020 Topamax 25 MG CAP Take one (1) caps ule by mouth twice a day SatDec 09:00:00 ED2020Feb 06:00 :00 ED2020 Vistaril 25 MG CAP Take one (1) cap robert by mouth three times a day, as needed for anxiety SatDec 09:00:00 ED2020Feb 06:00:00 EDT 2020 SEROquel 25 MG TAB Take one (1) tab let by mouth three times a day SatDec 09:00:00 EDT 2020Feb 06:00 :00 EDT 2020 Effexor XR 37.5 MG CER Take one (1) capsule by mouth every morning SatDec 09:00:00 2020Jan 07:00 :00 ED2020 Minipress 5 MG CAP Take one (1) cap robert by mouth at bedtime SatDec 09:00:00 EDT 2020Feb 06 00:00 :00 EDT [address] one (1) bran m under the tongue three times a day SatDec 09 00:00:00 ED2020Jan 07:00 :00 ED2020 SEROquel 100 MG TAB Take one (1) ta blet by mouth at bedtime SatNov 10 00:00:00 ED2020Dec 09:00 :00 ED2020 Effexor XR 37.5 MG CER Take one (1) capsule by mouth every morning SatNov 10 00:00:00 ED2020Dec 09:00 :00 EDT [address] [...] at bedtime SatOctober 10 00:00:00 2020Dec 08 00:00 :00 EDT 2020 SEROquel [...] (2) tablets by mouth at bedtime SatAug 09:00:00 EST 2020Sep 09 00:00 :00 EDT 2020 [...] ( 1) tablet by mouth daily SatAug 09:00:00 EST 2020Oct 07 00:00 :00 [...] 00:00:00 EST 2019Jun 13 00:00:00 EST [address] one (1) bran m under the tongue three times a day SatMay 30 00:00:00 2019Jun 13 00:00 :00 2020 cloNIDine HCl 0.1 MG TAB Take one ( 1) tablet by mouth three times a day, as needed SatMay 30 00:00:00 2019 [facility] 18 00:00:00 2020 Minipress 1 MG CAP Take one (1) cap robert by mouth daily SatMay 30 00:00:00 2019 [facility] 18 00:00 :00 2020 traZODone hydrochloride 100 MG TAB Take one (1) tablet by mouth at bedtime SatMay 30 00:00:00 2019Jun 13 00:00:00 2020 Wellbutrin XL 150 MG T24 Take one ( 1) tablet by mouth daily SatMay 30 00:00:00 2019 [facility] 00:00 :00 2020 Vistaril 25 MG CAP Take one (1) cap robert by mouth three times a day, as needed for anxiety SatMay 30 00:00:00 2019 [facility] 18 00:00:00 2020 SEROquel 25 MG TAB Take one (1) tab let by mouth three times a day SatMay 30 00:00:00 2019 [facility] 00:00 :00 2020 lamoTRIgine 25 MG TAB Take two (2) tablets by mouth at bedtime SatMay 30 00:00:00 2019 [facility] 00:00 :00 2020 Buprenorphine-Naloxone 0.0 BRAN Aaron ce one (1) film under the tongue three times a day SatMay 17 00:00:00 2019May 30 00:00:00 2019 cloNIDine HCl 0.1 MG TAB Take one ( 1) tablet by mouth three times a day, as needed SatMay 17 00:00:00 2019May 30 00:00:00 EST 2019 Minipress 1 MG CAP Take one (1) cap robert by mouth daily SatMay 17 00:00:00 2019May 30 00:00 :00 EST 2019 traZODone hydrochloride 100 MG TAB Take one (1) tablet by mouth at bedtime SatMay 17 00:00:00 EST 2019May 30 00:002019 Wellbutrin XL 150 MG T24 Take one ( 1) tablet by mouth daily SatMay 17:00:2019May 30:00 :00 2019 Vistaril 25 MG CAP [...] times a day SatApr 19 00:00:00 2019Apr 25:00:00 2019 DDAVP 0.0 SPR [place] two (2) sprays in nostril(s) daily SatApr 12:00:00 2019Sep 09:00 :00 EDT 2020 cloNIDine HCl 0.1 MG [...] 12:00:00 2019Sep 09 00:00 :00 EDT 2020 Ibuprofen [...] 10 00:00 :00 2020 Narcan 0.0 SPR [place] one (1) spray in nostril(s) daily SatApr [...] SatFeb 02 00:00:00 ED2019Feb 08 00:00 :00 ED[address] one (1) bran m under the tongue twice a day SatNov 17 00:00:00 2019Nov 30 00:00 :00 ED2019 Vistaril 25 MG CAP Take one (1) cap robert by mouth twice a day, as needed SatNov 17 00:00:00 ED2019Dec 16 00:00 :00 ED[address] one (1) bran m under the tongue twice a day SatNov 10 00:00:00 2019Nov 17 00:00 :00 ED 2020 lamoTRIgine 25 MG TAB Take one (1) [...] 03 00:00 :00 2019 Narcan 0.0 SPR [place] one (1) spray in nostril(s) daily SatNovember [...] mouth at bedtime SatNovember 03 00:00:00 2019 Eugenio 00:00:00 [address] one [...] 2019Sep 09 00:00:00 2020 DDAVP 0.0 SPR [place] two (2) sprays in nostril(s) daily SatApr [...] 09 00:00 :00 2020 Narcan 0.0 SPR [place] one (1) spray in nostril(s) daily SatApr [...] tongue twice a day SatAug 18 00:00:00 EDT 2019Aug 25 00:00 :00 EDT 2019 Singulair 10 MG TAB Take one (1) ta blet by mouth daily SatAug 13 00:00:00 2019Sep 11 00:00 :00 EDT 2019 Prazosin HCl 2 MG CAP Take two (2) capsules by mouth at bedtime SatAug 13 00:00:00 2019October 11 00:00 :00 EDT 2019 ZyPREXA 10 MG TAB Take one [...] METRONIDAZOLE 500 MG TABLET SatJul 31 08:00:00 2019Aug 09 07:59:00 2019 QUETIAPINE FUMARATE 100 MG TABLET SatJul 31 08:00:00 2019Aug 27 08:59:00 EDT 2020 SUBOXONE (BUPRENORPHINE-NALOXONE) 8MG-2MG FILM [...] MG TABLET Tue Feb 11 08:00:00 EST 2019e Mar 10 08:59:00 EDT 2020 TOPAMAX (TOPIRAMATE) 25 MG TABLET Sat Feb 08:00:00 2019e Mar 10 08:59:00 EDT 2020 WELLBUTRIN XL (BUPROPION HYDRO CHLORIDE) 150 MG TABLET, EXTENDED RELEASE, 24 HR e Feb 11 08:00:00 2019e Mar 10 08:59:00 EDT 2019 QUETIAPINE FUMARATE 50 MG TABLET, EXTENDED RELEASE e Feb 11 15:37:00 2019e Mar 10 16:36:00 EDT 2020 QUETIAPINE FUMARATE 50 MG TABLET, EXTENDED RELEASE e Feb 11 21:00:00 2019e Mar 10 21:59:00 EDT 2019 LAMOTRIGINE 25 MG TABLET Sat Feb 12 08:00:00 EST 2019 Wed Mar 08:59:00 EDT 2019 PRAZOSIN HCL 2 MG CAPSULE Satb 21:00:00 2019e Mar 21:59:00 EDT 2019 SUBOXONE (BUPRENORPHINE-NALOXONE) 8MG-2MG FILM Sat Feb 10 23:24:00 EST 2020 Jie Feb 20 23:23:00 EST 2020 TRAZODONE HYDROCHLORIDE 50 MG TABLET Mon Feb 10 23:24:00 2019Aug 17 00:23:00 EDT 2020 NARCAN (NALOXONE HCL) 4 MG/0.1 ML SPRAY Mon Feb 10 23:24:00 EST 2020 Mon Feb 24 23:23:00 EST 2020 VENTOLIN HFA (ALBUTEROL SULFAT E) 0.09 MG/1 ACTUATION SUSPENSION Mon Feb 10 23:24:00 EST 2019 e Mar 10 00:23:00 EDT 2020 NARCAN (NALOXONE HCL) 4 MG/0.1 ML SPRAY Mon Feb 10 23:24:00 EST 2020 Mon Feb 24 23:23:00 EST 2020 PEPCID (FAMOTIDINE) 40 MG TABLET Mon Feb 10 23:24:00 2019e Aug 10 00:23:00 EDT 2020 ORAJEL MOUTH SORE MEDICINE (BE NZALKONIUM CHLORIDE-BENZOCAINE/ZINC CHLORIDE) 0.02%-20%-0.1% GEL/JELLY Mon Feb 1 0 23:24:00 EST 2019e Aug 10 00:23:00 EDT 2020 MYLANTA (ALUMINUM HYDROXIDE-MA GNESIUM HYDROXIDE-SIMETHICONE) 200MG/5 ML-200MG/5 ML-20MG/5 ML SUSPENSION Mon Feb 10 :24:00 2019 10 00:23:00 EDT 2019 MULTIVITAMIN TABLET Mon Feb 10 ::2019 10 00:23:00 EDT 2019 MELATONIN 5 MG CAPSULE Mon Feb 10 ::2019Aug 17 00:23:00 EDT 2019 ICY HOT (MENTHOL-METHYL SALICYLATE) 10%-30% CREAM Mon Feb 10 ::00 2019 10 00:23:00 EDT 2019 FIBER-LAX 625 MG TABLET Mon Feb 10 ::2019Aug 17 00:23:00 EDT 2019 CLARITIN (LORATADINE) 10 MG TABLET Mon Feb 10 ::2019Aug 17 00:23:00 EDT 2019 BENADRYL ALLERGY (DIPHENHYDRAM INE HYDROCHLORIDE) 25 MG TABLET Mon Feb 10 :24:2019 e Aug 17 00:23:00 EDT 2019 TUMS (CALCIUM CARBONATE) 500 MG TABLET, CHEWABLE Mon Feb 10 ::00 2019Aug 17 00:23:00 EDT 2019 GAS-X (SIMETHICONE) 80 MG TABLET, CHEWABLE Mon Feb 10 :24:00 2019 10 00:23:00 EDT 2019 ACETAMINOPHEN (TYLENOL) 500 MG TABLET Mon Feb 10 ::2019Aug 17 00:23:00 EDT 2019 NICOTINE POLACRILEX 4 MG LOZENGE/BERTHA Mon Feb 10 :24:00 2019b 24 23::00 EST 2019 MONTELUKAST SODIUM 10 MG TABLET Mon Feb 10 ::00 2019Aug 17 00:23:00 EDT 2019 ADVAIR DISKUS 250/50 (FLUTICAS ONE PROPIONATE-SALMETEROL XINAFOATE) 0.25MG/1 ACTUATION-0.05MG/1 ACTUATION DISK Mo n Feb 10 23:24:00 2019Aug 17 00:23:00 EDT 2019 HYDROXYZINE HCL 25 MG TABLET SatJul 20 23:24:00 2019 Sat Feb 15 23:23:00 2019 ZOFRAN (ONDANSETRON) 4 MG TABLET, DISINTEGRATING SatJul 20:24:00 2019 Sat Feb 15 :23:00 2019 CATAPRES (CLONIDINE HYDROCHLORIDE) 0.1 MG TABLET SatJul 20:24:00 2019 Sat Feb 15 :23:00 2019 XOPENEX (LEVALBUTEROL HYDROCHLORIDE) 1.25 MG /3 [...] EXTENDED RELEASE SatJul 20:24:00 2019Aug 17 00:23:00 ED2019 COLACE (DOCUSATE SODIUM) [...] (LOTI ON, MULTI INGREDIENT) 2%-7.5%-4.5%-2.4%-4.8% LOTION Sat 09 10:0 5:00 2019 08 11:04:00 EDT 2020 TRAZODONE HYDROCHLORIDE 50 MG TABLET Sun Feb 09 10:03:00 EST 2019 Sun Aug 08 11:02:00 EDT 2019 ACETAMINOPHEN (TYLENOL) 500 MG TABLET Sun Feb 04:55:00 EST 2019 Sun Aug 15 05:54:00 EDT 2019 GAS-X (SIMETHICONE) 80 MG TABLET, CHEWABLE Sat Feb 08 15:55:00 EST 2020 Sat Aug 14 15:54:00 EST 2019 TUMS (CALCIUM CARBONATE) 500 MG TABLET, CHEWABLE Sat Feb 08 15:55:00 EST 2019Aug 14 15:54:00 EST 2020 BENADRYL ALLERGY (DIPHENHYDRAM INE HYDROCHLORIDE) 25 MG TABLET Sat Feb 08 15:55:00 EST 2019 [facility] Aug 14 15:54:00 EST 2020 BENADRYL ALLERGY (DIPHENHYDRAM INE HYDROCHLORIDE) 25 MG TABLET Sat Feb 08 15:55:00 EST 2020 [facility] Aug 14 15:54:00 EST 2020 CLARITIN (LORATADINE) 10 MG TABLET Sat Feb 08 15:55:00 EST 2020 Sat Aug 14 15:54:00 EST 2020 COLACE (DOCUSATE SODIUM) [...] CREAM Sat Feb 08 15:55:00 EST 2020 Sat Aug 14 15:54:00 EST 2020 MELATONIN 5 MG CAPSULE Sat Feb 08 15:55:00 EST 2020 Sat Aug 14 15:54:00 EST 2020 MILK OF MAGNESIA [...] 15 ML SUSPENSION Sat Feb 08 15:55:00 2019Aug 14 15:54 :00 EST 2019 PEPCID (FAMOTIDINE) 40 MG TABLET Sat Feb 08 15:55:00 EST 2019Aug 14 15:54:00 2019 TRIPLE ANTIBIOTIC OINTMENT 40 0UNITS/1GM-3.5MG/1GM-5000UNITS/1GM OINTMENT Sat Feb 08 15:55:00 EST 2019 Aug 14 15:54:00 EST 2019 XOPENEX (LEVALBUTEROL HYDROCHLORIDE) 1.25 MG /3 ML SOLUTION Sat b 08 15:55:00 2019Aug 14 15:54 :00 EST 2019 NARCAN (NALOXONE HCL) 4 MG/0.1 ML SPRAY Sat Feb 08 15:55:00 EST 2019 Sat Feb 22 15:54:00 EST 2020 CATAPRES (CLONIDINE HYDROCHLORIDE) 0.1 MG TABLET Sat Feb 08 15:55:00 2019 Jie Feb 13 15:54:00 EST 2020 ZOFRAN (ONDANSETRON) 4 MG TABLET, DISINTEGRATING Sat b 08 15:55:00 2019 Jie Feb 13 15:54:00 EST 2020 HYDROXYZINE HCL 25 MG TABLET Sat Feb 08 15:55:00 2019 Jie Feb 13 15:54:00 EST 2020 ADVAIR DISKUS 250/50 (FLUTICAS ONE PROPIONATE-SALMETEROL XINAFOATE) 0.25MG/1 ACTUATION-0.05MG/1 ACTUATION DISK Sa jul 08 15:55:00 2019Aug 14 15:54:00 EST 2019 VENTOLIN HFA (ALBUTEROL SULFAT E) 0.09 MG/1 ACTUATION SUSPENSION Sat Feb 08 15:55:00 EST 2019 Aug 14 15:54:00 EST 2019 SUBOXONE (BUPRENORPHINE-NALOXONE) 8MG-2MG FILM Sat Feb 08 [...] DISK We d Feb 08:00:00 EST 2020 SatAug 11 07:59:00 EST 2020 HYDROXYZINE HCL 25 MG TABLET Wed Feb 12:24:00 EST 2020 Mon Feb 10 12:23:00 EST 2020 ZOFRAN (ONDANSETRON) 4 MG TABLET, DISINTEGRATING Wed Feb 12:24:00 EST 2020 Mon Feb 10 12:23:00 EST 2020 CATAPRES (CLONIDINE HYDROCHLORIDE) 0.1 MG TABLET Wed Feb 12:24:00 EST 2020 Mon Feb 10 12:23:00 EST 2020 NARCAN (NALOXONE HCL) 4 MG/0.1 ML SPRAY SatJul 15 12:24:00 2019 19 12:23:2019 XOPENEX (LEVALBUTEROL HYDROCHLORIDE) 1.25 MG /3 ML SOLUTION SatJul 15 12:24:00 2019Aug 11 12: : EST 2019 TRIPLE ANTIBIOTIC OINTMENT 40 0UNITS/1GM-3.5MG/1GM-5000UNITS/1GM OINTMENT SatJul 15 12:24:2019Aug 11 12:23:00 2019 PEPCID (FAMOTIDINE) 40 MG TABLET SatJul 15 12:24:00 2019Aug 11 12::00 2019 PEPTO-BISMOL (BISMUTH SUBSALICYLATE) 262 MG/ 15 ML SUSPENSION SatJul 15 12::2019Aug 11 12: :00 2019 ORAJEL MOUTH SORE MEDICINE (BE NZALKONIUM CHLORIDE-BENZOCAINE/ZINC CHLORIDE) 0.02%-20%-0.1% GEL/JELLY Sat 0 5 12::2019Aug 11 12:23:00 2019 MYLANTA (ALUMINUM HYDROXIDE-MA GNESIUM HYDROXIDE-SIMETHICONE) 200MG/5 ML-200MG/5 ML-20MG/5 ML SUSPENSION SatJul 15 12:24:00 2019Aug 11 12:23:00 EST 2019 MULTIVITAMIN TABLET SatJul 15 12:24:00 2019Aug 11 12:23:00 EST 2019 MILK OF MAGNESIA 400 MG/5 ML SOLUTION SatJul 15 12::2019Aug 11 12:23:00 EST 2019 MELATONIN 5 MG CAPSULE SatJul 15 12:24:2019Aug 11 12:23:00 2019 IMODIUM A-D (LOPERAMIDE HYDROC HLORIDE) 2 MG CAPSULE, LIQUID FILLED SatJul 15 12::2019Aug 11 12:23:00 2019 IBUPROFEN 200 MG TABLET SatJul 15 12:24:2019Aug 11 12:23:00 EST 2019 ICY HOT (MENTHOL-METHYL SALICYLATE) 10%-30% CREAM SatJul 15 12:24:00 2019Aug 11 12:23:00 2019 GUAIFENESIN 600 MG TABLET, EXTENDED RELEASE SatJul 15 12:24:00 2019Aug 11 12:23:00 EST 2019 FIBER-LAX 625 MG TABLET SatJul 15 12:24:2019Aug 11 12:23:00 EST 2019 COLACE (DOCUSATE SODIUM) 100 MG CAPSULE, LIQ UID FILLED SatJul 15 12:24:00 2019Aug 11 12:23 :00 EST 2019 CLARITIN (LORATADINE) 10 MG TABLET SatJul 15 12:24:00 2019Aug 11 12:23:00 2019 BENADRYL ALLERGY (DIPHENHYDRAM INE HYDROCHLORIDE) 25 MG TABLET SatJul 15 12:24:00 2019 d Aug 11 12:23:00 2019 BENADRYL ALLERGY (DIPHENHYDRAM INE HYDROCHLORIDE) 25 MG TABLET SatJul 15 12:24:00 2019 d Aug 11 12:23:00 EST 2020 TUMS (CALCIUM CARBONATE) [...] 26 08:04:00 2019Jul 01 08:03:00 EST 2019 ZOFRAN (ONDANSETRON) 4 MG TABLET, DISINTEGRATING SatJun 26 08:04:00 EST 2019Jul 01 08:03:00 EST 2019 CATAPRES (CLONIDINE HYDROCHLORIDE) 0.1 MG TABLET SatJun 26 08:04:00 2019Jul 01 08:03:00 EST 2019 NARCAN (NALOXONE HCL) 4 MG/0.1 ML SPRAY SatJun 26 08:04:00 EST 2019Jul 10 08:03:00 EST 2020 XOPENEX (LEVALBUTEROL HYDROCHLORIDE) 1.25 MG /3 ML SOLUTION SatJun 26 08:04:00 EST 2019Jul 24 08:03 :00 EST 2020 TRIPLE ANTIBIOTIC [...] CHLORIDE-BENZOCAINE/ZINC CHLORIDE) 0.02%-20%-0.1% GEL/JELLY SatJun 10 08:04:00 2019 Fri Feb 14 08:03:00 EST 2020 MYLANTA (ALUMINUM HYDROXIDE-MA GNESIUM HYDROXIDE-SIMETHICONE) 200MG/5 ML-200MG/5 ML-20MG/5 ML SUSPENSION SatJun 26 08:04:00 EST 2019 Fri Feb 14 08:03:00 EST 2020 MULTIVITAMIN TABLET SatJun 26 08:04:00 2020 Fri Feb 14 08:03:00 EST 2020 MILK OF MAGNESIA 400 MG/5 ML SOLUTION SatJun 26 08:04:00 2019 Fri Feb 14 08:03:00 EST 2019 MELATONIN 5 MG CAPSULE SatJun 26 08:04:00 2020 Fri Feb 14 [...] 100 MG CAPSULE, LIQ UID FILLED Sat 17 08:04:00 EST 2019 Fri Feb 14 08:03 :00 EST 2020 CLARITIN (LORATADINE) 10 MG TABLET Fri Jun 26 08:04:00 EST 2019 Fri Feb 14 08:03:00 EST 2020 BENADRYL [...] FILM Jie Jun 25 08:00:00 EST 2019 Jie Jul 02 07:59:00 EST 2019 SUBOXONE (BUPRENORPHINE-NALOXONE) 4MG-1MG FILM Jie Jun 25 08:00:00 2019Jun 26 07:59:00 2019 ADVAIR [...] times a day SatDec 22 00:00:00 2018 [facility] Sep 00:00 :00 2018 Prazosin HCl 1 MG CAP Take one (1) capsule by mouth at bedtime SatDec 22 00:00:00 2018 [facility] Sep 00:00 :00 ED2018 traZODone hydrochloride 100 MG TAB Take one (1) or two (2) tablets by mouth at bedtime, as needed. SatDec 22 00:00:00 2018 [facility] Sep 00:00:00 ED2018 Topamax 25 MG CAP Take one (1) caps ule by mouth twice a day SatDec 22 00:00:00 2018 [facility] Sep 00:00 :00 2018 Prazosin HCl 5 MG CAP Take one (1) capsule by mouth at bedtime SatDec 22 00:00:00 2018 Jie Sep 00:00 :00 ED2018 hydrOXYzine Pamoate 50 MG CAP Take one (1) capsule by mouth twice a day, as needed SatDec 22 00:00:00 2018 Jie Sep 00:00:00 ED2018 hydrOXYzine Pamoate 50 MG CAP Take one (1) capsule by mouth twice a day, as needed SatNov 24 00:00:00 EDT 2018Dec 22 00:00:00 2018 Prazosin HCl 1 MG CAP Take one (1) capsule by mouth at bedtime SatNov 24 00:00:00 2018Dec 22 00:00 :00 EDT 2018 traZODone hydrochloride 100 MG TAB Take [...] 24 00:00:00 ED2018October 23 00:00 :00 ED2018 hydrOXYzine Pamoate 50 MG CAP Take one (1) capsule by mouth three times a day, as needed SatSep 24 00:00:00 ED2018October 23 00:00:00 ED2018 TRAZODONE HYDROCHLORIDE 100 MG TABLET SatSep 23 17:10:00 ED2018October 21 17:09:00 ED2018 TRAZODONE HYDROCHLORIDE 100 MG TABLET SatSep 23 17:09:00 ED2018October 21 17:08:00 ED2018 ADVAIR DISKUS 250/50 (FLUTICAS ONE PROPIONATE-SALMETEROL XINAFOATE) 0.25MG/1 ACTUATION-0.05MG/1 ACTUATION DISK Sep 23 09:00:00 ED2018October 21 08:59:00 ED2018 SUBOXONE (BUPRENORPHINE-NALOXONE) 12MG-3MG FILM SatSep 23 09:00:00 ED2018Oct 07 08:59:00 ED2018 SUBOXONE (BUPRENORPHINE-NALOXONE) 12MG-3MG FILM SatSep 22 11:00:00 ED2018Oct 06 10:59:00 ED2018 NICOTINE 14 MG/24 HR PATCH, EXTENDED RELEASE SatSep 15 09:00:00 ED2018October 13 08:59:00 ED2018 TOPIRAMATE 50 MG TABLET SatSep 12 12:10:00 ED2018Sep 15 12:09:00 ED2018 PRAZOSIN HCL 1 MG CAPSULE SatSep 12 12:07:00 ED2018October 10 12:06:00 ED2018 HYDROXYZINE HCL 50 MG TABLET SatSep 12 12:05:00 ED2018October 10 12:04:00 ED2018 TRAZODONE HYDROCHLORIDE 100 MG TABLET SatSep 12 12:04:00 ED2018October 10 12:03:00 ED2018 BUPROPION HCL 150 MG TABLET, EXTENDED RELEAS E, 24 HR SatSep 12 12:04:00 ED2018October 10 12:03 :00 ED2018 GABAPENTIN 300 MG CAPSULE SatSep 12 12:04:00 ED2018October 10 12:03:00 ED2018 PRAZOSIN HCL 5 MG CAPSULE SatSep 12 12:02:00 EDT 2018October 10 12:01:00 EDT 2018 TOPIRAMATE 25 MG TABLET SatSep 12 12:06:00 EDT 2018October 10 12:05:00 EDT 2018 TRAZODONE HYDROCHLORIDE 100 MG TABLET SatSep 11 08:00:00 EDT 2018 Jiesep 18 07:59:00 EDT 2018 TOPIRAMATE 25 MG TABLET [...] POWDER FOR SOLUTION SatSep 05 09:00:00 EDT 2018Sep 06 08:59:00 EDT 2018 LINZESS (LINACLOTIDE) 290 [...] 09:00:00 EDT 2018Sep 27 08:59 :00 EDT 2019 SUBOXONE (BUPRENORPHINE-NALOXONE) 12MG-3MG FILM SatAug 29 09:00:00 EDT 2018Sep 12 08:59:00 EDT 2019 SUBOXONE (BUPRENORPHINE-NALOXONE) 12MG-3MG FILM Jie Aug 28 09:00:00 EDT 2018Aug 29 08:59:00 EDT 2019 HYDROXYZINE HCL 50 MG TABLET SatAug 27 22:43:00 EDT 2018Sep 24 22:42:00 EDT 2019 ABREVA (DOCOSANOL) 10 % CREAM SatAug 27 [...] 17:41:00 EDT 2018Sep 24 17:40:00 EDT 2018 COLACE (DOCUSATE SODIUM) 100 MG CAPSULE, LIQ [...] twice a day SatSep 19 00:00:00 ED2017Sep 28:00 :00 EDT 2017 chlorproMAZINE HCl 25 MG TAB Take o ne (1) tablet by mouth four times a day SatSep 19 00:00:00 ED2017Sep 28 00:00:00 EDT 2017 hydrOXYzine HCl 25 MG TAB Take one (1) tablet by mouth every 6 hours SatJul 25 00:00:00 EST 2017Aug 03 00:00 :00 EST 2017 Problems Active Concerns * Opioid abuse * Code: [id number] * Start Date: SatJun 10 11:00:00 EST [...] * Alcohol use disorder, severe * Code: [id number] * Start Date: SatJun 24 07:00:00 2019 * Text: * Severe nicotine withdrawal * Code: 39829051 * Start Date: SatJun 24 07:00:00 2019 * Text: * Stimulant use disorder * Code: [id number] * Start Date: SatJun 24 07:00:00 2019 * Text: * Synthetic cannabinoid dependence * Code: [id number] * Start Date: SatJul 15 07:00:00 2019 * Text: * Opioid use disorder, severe, dependence * Code: 11746804 * Start Date: SatJul 15 07:00:00 EST 2019 * Text: * Current every day smoker * Code: [id number] * Start Date: SatJul 15 07:00:00 2019 * Text: * Bipolar disorder with psychotic features * Code: [id number] * Start Date: SatSep 29 08:00:00 EDT [...] 13:25:00 EDT 2020 BP Position 2 Position Wed Dennis 2 1 13:25:00 EDT 2020 Temperature 98.7 [DEGF] [...] SatApr 04 11:09:00 EDT 2019 Temperature 36.4 SUSNAA Sat 2 6 11:09:00 EDT 2019 Heart Rate 69 [...] 00 EDT 2019 Pain Scale 3 Scale Mon Oct 26 11:09:00 EDT 2020 Temperature 97.4 [DEGF] Mon [...] EST 2020 Diastolic 66 MM[HG] Sat Jun 27 03:01:00 EST 2020 Heart Rate 74 [...] 2020 BP Position 3 Position SatJun 10 10:12:00 EST 2020 Temperature 97.4 [DEGF] SatJun [...] 10 15:42:00 EST 2020 Respiration 20 /MIN Wed Luc 1 5 10:38:00 EST 2020 Pain Scale 4 Scale SatJun 24 10:38:00 EST 2020 Temperature 97.2 [DEGF] SatJun 24 09:45:00 EST 2020 Temperature 36.2 SUSANA SatJun 10 5 09:45:00 EST 2020 Heart Rate 59 /MIN SatJun 24 09:45:00 EST 2019 Systolic 116 MM[HG] SatJun 24 0 9:45:00 EST 2020 Diastolic 76 MM[HG] SatJun 24 09:45:00 EST 2020 BP Position 2 Position SatJun 10 09:45:00 EST 2020 Height 4 9 ft SatJun 24 09: 45:00 EST 2020 Height 57 in SatJun 24 09: 45:00 EST 2019 Height 144.8 cm SatJun 24 09: 45:00 EST 2019 Weight Lbs 165 lbs SatJun 24 09:45:00 2019 Weight Kgs 75 KG SatJun 24 09:45:00 2019 BMI 35.7 % SatJun 24 09:45: 00 2019 Temperature 98.0 [DEGF] [facility] [place] Feb 07 12:39:00 EDT 2018 Temperature 36.7 SUSANA SatJan 10 12:39:00 EDT 2018 Heart Rate 69 /MIN [facility] [place] Feb 07 12:39:00 EDT 2018 Respiration 14 /MIN [facility] [place] Jan 10 12:39:00 EDT 2018 SpO2 98 % [facility] [place] Feb 07 12:39 :00 EDT 2018 Systolic 100 MM[HG] [facility] [place] Feb 07 2:39:00 EDT 2019 Diastolic 59 MM[HG] [facility] [place] Feb 07 12:39:00 EDT 2019
--- OUTSIDE RECORDS SUMMARY | 2021-03-23 20:18 | CCD ---
Author Author Jasmin Farley Organization [facility] Address [address] [place] [address] Care Team Providers Care Loan Manager Name Role Phone Ambreen Farley Unavailable JohannykevinDahiana Unavailable Min Hernandez Unavailable Monika White Unavailable Functional Status No Results Mental Status No Results Assessments SatJan 09 18:03:52 EDT 2020: No Assessment Information Health Concerns [...] 11:00:00 EDT 2020Sep 05 12:00:00 EDT 2020 Immunizations No Known Immunizations Lab [...] most recent episode (or current) unspecified* Code: [id number] * Start Date: SatApr 01 09:00:00 EDT 2019 * Text: * Mental Health and Stress Management* Code: * Start Date: SatNovember 02 00:00:00 EDT 2020 * Text: * Mental Health and Stress Management* Code: * Start Date: SatDec 21 00:00:00 EDT 2020 * Text: * Posttraumatic stress disorder* Code: [id number] * Start Date: SatApr 01 09:30:00 EDT [...]
--- OUTSIDE RECORDS SUMMARY | 2021-03-23 20:18 | CCD ---
Author Author Jasmin Farley Organization [facility] Address [address] [place] [address] Care Team Providers Care Site Inspector Name Role Phone Ambreen Farley Unavailable JohannykevinDahiana Unavailable Min Hernandez Unavailable Monika White Unavailable Functional Status No Results Mental Status No Results Assessments SatJan 11 14:51:44 EDT 2020: No Assessment Information Health Concerns No Known Health Concerns Allergies No Known Allergy Information Encounters Program Name Primary Diagnosis Admission Date/Time Discharge Date/Time BH - Short Term Crisis Respite SatDec 21 14:15:00 EDT 2020Dec 23 14:00:00 EDT 2020 BH - Short Term Crisis Respite SatJun 08 00:00:00 EST 2019Jun 15 10:00:00 EST 2020 Intensive Support SatJun 09 10:00:00 EST 2019 BH - Short Term Crisis Respite SatApr [...] most recent episode (or current) unspecified* Code: [id number] * Start Date: SatApr 01 09:00:00 EDT 2019 * Text: * Mental Health and Stress Management* Code: * Start Date: SatNovember 02 00:00:00 EDT 2020 * Text: * Mental Health and Stress Management* Code: * Start Date: SatDec 21 00:00:00 EDT 2020 * Text: * Posttraumatic stress disorder* Code: [id number] * Start Date: SatApr 01 09:30:00 EDT [...]
--- OUTSIDE RECORDS SUMMARY | 2021-03-23 20:19 | CCD ---
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 Name Role Phone Yaron Lobato AttendingPractitioner1 Peyton Tavarez Practitioner Cassidy Strauss Practitioner Dao Junior Practitioner Javier Goldstein Practitioner Ambar Patel AdmittingPractitioner1 Donna Buenrostro Practitioner Brent Marino Practitioner Swati Katz Practitioner Livia Nguyen AttendingPractitioner1 Kathryn Sinha Practitioner Namrata Armstrong Practitioner Nic Mitchell AttendingPractitioner1 lAvin Fields Practitioner Kylie Ann Practitioner Kodak Koo Practitioner Karla Person Practitioner Tashia Campo Practitioner Carri Moore Practitioner Sneha Celeste Practitioner Quintin Cornell AdmittingPractitioner1 Zara Valdez Practitioner Zara Flores Practitioner Yung Donovan Practitioner Samuel Pierce Practitioner [...] Primary Diagnosis Admission Date/ Time Discharge Date/Time [facility]patient Wait[facility] SatSep 24 13:11:00 EDT 2018Mar 02 11:08:00 EDT 2019 [place] [facility] SatJan 10 11:41:00 EDT 2017 [facility] Wait[facility] SatSep 24 12:11:00 EDT 2018 [facility] Synthetic cannabinoid dependence SatJul 15 10:25:00 EST 2019Jul 18 14:14:00 EST 2019 Lauren Vicente Waiting SatJun 13 13:54:00 EST 2020Jun 27 17:13:00 EST 2020 [place] [facility] davey abinoid dependence SatDec 28 10:30:00 EDT 2020 [facility] Sat J an 02:02:00 EST 2019 [facility] Wait[facility] Drug abuse counseling and surveillance of drug abuser SatAug 03 08:19:00 EST 2019Feb 15 08:55:00 EDT 2019 [facility] [facility] SatJul 10 16:04:00 EST 2018 [facility] Polysubstance abuse SatJun 24 09:10:00 EST 2019Aug 03 08:17:00 EST 2019 [facility] SatAug 19 09:30:00 EDT 2018 [facility] Wait[facility] Heroin use disorder, severe, on maintenance therapy, dependence SatAug 20 09:30:00 EDT 2019October 14 11:29:00 EDT 2019 [facility] SatJan 08 10:39:00 EDT 2017 [facility] SatJan 09 10:42:00 EDT 2017 [place] [facility] Sat Jan 12 09:36:00 EDT 2017 [facility] [place] [facility] Alcohol use disorder, severe SatJun 24 14:16:00 EST 2019 Sat Jun 27 13:25:00 EST 2019 [facility] Heroin use disorder, moderate, dependence SatApr 04 10:25:00 EDT 2019 Jie Jan 05 11:15:00 EDT 2020 [facility] Synthetic cannabinoid dependence Sat Jul 18 14:16:00 EST 2019Jul 20 11:58:00 EST 2019 [facility] SatOctober 08 11:40:00 EDT 2016 Maude Gilman SatAug 27 14:15:00 EDT 2018 Lauren Vicente Waiting SatSep 11 09:41:00 EDT 2019 [facility] SatOct 01 08:57:00 EDT 2019Nov 19 13:39:00 EDT 2019 Maude Gilman Severe opioid use disorder SatJul 20 11:59:00 EST 2019 Sat Aug 01 17:29:00 EST 2019 Immunizations No Known [...] SatJan 19 15:21:00 EDT 2019 eGFR NON-AFR. ANGUILLAN DNR mL/min/1.73m2 SatJan 19 15:21:00 EDT 2019 [...] :21:00 EDT 2019 PROTEIN, TOTAL DNR g/dL [facility] 15:21:00 EDT 2019 ALBUMIN DNR g/dL SatJan [...] 00 EDT 2019 PLATELET COUNT DNR Thousand/uL M Jan 19 15:21:00 EDT 2019 MPV DNR [...] EDT 2019 ABSOLUTE NUCLEATED RBC DNR cells/uL Mon Aug 12 15:21:00 EDT 2019 NEUTROPHILS DNR % [facility] Jan 08 2 15:21:00 EDT 2019 BAND NEUTROPHILS DNR % [facility] Jan 12 15:21:00 EDT 2019 METAMYELOCYTES DNR % Mon Au g 12 15:21:00 EDT 2019 MYELOCYTES DNR % [facility] Jan 12 15:21:00 EDT 2019 PROMYELOCYTES DNR % [facility] Jan 19 15:21:00 EDT 2019 LYMPHOCYTES DNR % [facility] Jan 08 2 15:21:00 EDT 2019 REACTIVE LYMPHOCYTES DNR % [facility] Jan 19 15:21:00 EDT 2019 MONOCYTES DNR % [facility] Jan 12 15:21:00 EDT 2019 EOSINOPHILS DNR % [facility] Jan 08 2 15:21:00 EDT 2019 BASOPHILS DNR % [facility] Jan 19 15:21:00 EDT 2019 BLASTS DNR % [facility] Jan 19 15: 21:00 EDT 2019 NUCLEATED RBC DNR /100 WBC Mon A ug 12 15:21:00 EDT 2019 COMMENT(S) DNR [facility] Jan 19 15:21:00 EDT 2019 HCG, QL, URINE NEGATIVE [facility] g 12 15:21:00 EDT 2019 BUPRENORPHINE 530 ng/mL SatJan 23 09:21:00 EDT 2019 NORBUPRENORPHINE >1000 ng/mL SatJan 23 09:21:00 EDT 2019 Benzodiazepines NEGATIVE ng/mL F Jan 23 09:21:00 EDT 2019 Alphahydroxyalprazolam DNR ng/mL SatJan 23 09:21:00 EDT 2019 Alphahydroxymidazolam DNR ng/mL SatJan 23 09:21:00 EDT 2019 Alphahydroxytriazolam DNR ng/mL SatJan 23 09:21:00 EDT 2019 Aminoclonazepam DNR ng/mL Fri A ug 16 09:21:00 EDT 2019 Hydroxyethylflurazepam DNR ng/mL SatJan 23 09:21:00 EDT 2019 Lorazepam DNR ng/mL SatJan 23 09:21:00 EDT 2019 Nordiazepam DNR ng/mL SatJan 08 6 09:21:00 EDT 2019 Oxazepam DNR ng/mL [...] Lorazepam DNR ng/mL SatFeb 04 14:04:00 EDT 2019 Nordiazepam DNR ng/mL SatJan 09 8 14:04:00 [...] YELLOW Sun Jun 28 13:4 2:00 EST 2019 APPEARANCE TURBID Sun Jun 28 13:42:00 EST [...] UREA NITROGEN (BUN) 11 mg/dL F ri Feb 11:33:00 EST 2020 CREATININE 0.78 mg/dL Sat Feb 11:33:00 2020 eGFR NON-AFR. ANGUILLAN 101 mL/min/1.73m2 Sat Feb 11:33:00 2020 eGFR 117 mL/min/1.73m2 Sat Feb 11:33:00 2020 BUN/CREATININE RATIO NOT APPLICABLE (calc ) Satb 11:33:00 2020 SODIUM 135 mmol/L Sat Feb 11: 33:00 EST 2020 POTASSIUM 4.8 mmol/L Sat Feb 11:33:00 2020 CHLORIDE 102 mmol/L Sat Feb 1 1:33:00 2020 CARBON DIOXIDE 26 mmol/L Sat Fe b 11:33:00 2020 CALCIUM 9.0 mg/dL Sat Feb 11 :33:00 2020 PROTEIN, TOTAL 6.4 g/dL Sat Fe b 11:33:00 2020 ALBUMIN 3.6 g/dL Sat Feb 11 :33:00 2020 GLOBULIN 2.8 g/dL (calc) Satb 11:33:00 2020 ALBUMIN/GLOBULIN RATIO 1.3 (calc) Satb 11:33:00 2020 BILIRUBIN, TOTAL 0.3 mg/dL Satb 11:33:00 2020 ALKALINE PHOSPHATASE 71 U/L Satb 11:33:00 2020 AST 19 U/L Satb 11:33: 00 2020 ALT 19 U/L Satb 11:33: 00 2020 WHITE BLOOD CELL COUNT 9.0 Thousand/uL Satb 11:33:00 2020 RED BLOOD CELL COUNT 4.58 Million/uL Satb 11:33:00 2020 HEMOGLOBIN 14.7 g/dL Satb 11:33:00 EST 2020 HEMATOCRIT 43.1 % Sat Feb 11:33:00 EST 2020 MCV 94.1 fL Sat Feb 11:33: 00 2020 MCH 32.1 pg Satb 11:33: 00 2020 MCHC 34.1 g/dL Satb 11:33 :00 EST 2020 RDW 13.6 % Sat Feb 11:33: 00 EST 2020 PLATELET COUNT 284 Thousand/uL F ri Feb 11:33:00 2020 MPV 11.4 fL Sat Feb 21 [...] 2020 ABSOLUTE LYMPHOCYTES 2682 cells/uL Fri Feb 11:33:00 EST 2020 ABSOLUTE MONOCYTES 459 cells/uL Fri Feb 21 11:33:00 EST 2020 ABSOLUTE EOSINOPHILS 99 cells/uL Fri Feb 11:33:00 EST 2020 ABSOLUTE BASOPHILS 36 cells/uL F ri Feb 11:33:00 EST 2020 ABSOLUTE BLASTS DNR cells/uL Sat Feb 11:33:00 EST 2020 ABSOLUTE NUCLEATED RBC DNR cells/uL Sat Feb 11:33:00 EST 2020 NEUTROPHILS 63.6 % Fri Feb 2 1 11:33:00 EST 2020 BAND NEUTROPHILS DNR % Sat Feb 11:33:00 EST 2020 METAMYELOCYTES DNR % Fri Fe b 11:33:00 EST 2020 MYELOCYTES DNR % Sat Feb 11:33:00 EST 2020 PROMYELOCYTES DNR % Fri Feb 11:33:00 EST 2020 LYMPHOCYTES 29.8 % Fri Feb 2 1 11:33:00 EST 2020 REACTIVE LYMPHOCYTES DNR % Fri Feb 21 11:33:00 EST 2020 MONOCYTES 5.1 % Fri Feb 11:33:00 EST 2020 EOSINOPHILS 1.1 % Fri Feb 2 1 11:33:00 EST 2020 BASOPHILS 0.4 % Fri Feb 21 11:33:00 EST 2020 BLASTS DNR % Fri Feb 21 11: 33:00 EST 2020 NUCLEATED RBC DNR /100 WBC Fri F eb 21 11:33:00 EST 2020 COMMENT(S) DNR Sat Feb 21 11:33:00 EST 2020 HEPATITIS C ANTIBODY REACTIVE Fri Feb 21 11:33:00 EST 2020 SIGNAL TO CUT-OFF 31.20 Sat Feb 21 11:33:00 EST 2020 RPR (DX) W/REFL TITER AND CONFIRMATORY TESTI NG NON-REACTIVE Sat Feb 11:33:00 EST 2020 HCV RNA, QUANTITATIVE REAL TIME PCR Satb 08:31:00 EST 2020 HCV RNA, QUANTITATIVE REAL TIME PCR Satb 08:31:00 EST 2020 HCV RNA, QUANTITATIVE REAL TIME PCR Satb 09:29:00 EST 2020 HCV RNA, QUANTITATIVE REAL TIME PCR Satb 09:29:00 EST 2020 HCV RNA, QUANTITATIVE REAL TIME PCR <15 NOT DETECTED IU/mL Tue Feb 11 05:49:00 EST 2020 HCV RNA, QUANTITATIVE REAL TIME PCR <1.18 NOT DETECTED Log IU/mL e Feb 11 05:49:00 EST 2020 COMMENT Sat Feb 11 05 :49:00 EST 2020 HCV RNA, QUANTITATIVE REAL TIME PCR <15 NOT DETECTED IU/mL Satb 11:33:00 EST 2020 HCV RNA, QUANTITATIVE REAL TIME PCR <1.18 NOT DETECTED Log IU/mL Sat Feb 11:33:00 EST 2020 COMMENT Sat Feb [...] 2 MACROGLOBULIN DNR Jie Feb 27 06:57:00 2020 HAPTOGLOBIN DNR Jie Feb 2 7 [...] 2 3:32:00 2019 CARBON DIOXIDE 23 mmol/L r 23:32:00 2019 CREATININE, RANDOM URINE 104 mg/dL SatAug 10 23:32:00 2019 ALBUMIN, URINE 92.9 mg/dL Sat 23:32:00 2019 ALBUMIN/CREATININE RATIO, RANDOM URINE 893 mcg/mg creat SatAug 10 23:32:00 2019 CREATININE 0.71 mg/dL SatAug 10 23:32:00 2019 eGFR NON-AFR. ANGUILLAN 113 mL/min/1.73m2 SatAug 10 23:32:00 2019 eGFR 132 mL/min/1.73m2 SatAug 10 23:32:00 2019 HEMOGLOBIN 13.2 g/dL SatAug 10 23:32:00 2019 PARATHYROID HORMONE, INTACT 34 pg/mL SatAug 10:32:00 2019 CALCIUM 8.8 mg/dL SatAug 10 :32:00 2019 PHOSPHATE ( PHOSPHORUS) 4.3 mg/dL SatAug 10 23:32:00 2019 VITAMIN D,25-OH,TOTAL,IA 19 ng/mL SatAug 10:32:00 2019 PROTEIN, TOTAL 6.8 g/dL 23:32:00 2019 ALBUMIN 3.7 g/dL SatAug 10 23 :32:00 2019 GLOBULIN 3.1 g/dL (calc) SatAug 10:32:00 2019 ALBUMIN/GLOBULIN RATIO 1.2 (calc) Tue Mar 03 23:32:00 EST 2020 BILIRUBIN, TOTAL 0.2 mg/dL SatAug 10 23:32:00 [...] 23:32:00 EST 2020 NEUTROPHILS 57.4 % Sat 3 23:32:00 EST 2020 BAND NEUTROPHILS DNR % SatAug 10 23:32:00 EST 2020 METAMYELOCYTES DNR % e Ma r 03 23:32:00 EST 2020 MYELOCYTES DNR % Sat 03 23:32:00 EST 2020 PROMYELOCYTES DNR % Sat 03 23:32:00 EST 2020 LYMPHOCYTES 33.9 % e Mar 0 3 23:32:00 EST 2020 REACTIVE LYMPHOCYTES DNR % Sat 03 23:32:00 EST 2020 MONOCYTES 4.9 % Sat 03 23:32:00 EST 2020 EOSINOPHILS 3.4 % e Mar 0 3 23:32:00 EST 2020 BASOPHILS 0.4 % e Aug 03 23:32:00 EST 2020 BLASTS DNR % [...] 28 12:48:00 EST 2020 Morphine DNR ng/mL SatAug 07 1 2:48:00 EST 2019 Norhydrocodone DNR ng/mL Sat 12:48:00 EST 2019 Confirmation Testing Performed at: DNR SatAug 07 12:48:00 EST 2019 COMMENT SatAug 07 12 :48:00 EST 2020 Buprenorphine SatAug 07 12:48:00 EST 2020 Norbuprenorphine SatAug 07 12:48:00 EST 2020 CREATININE, RANDOM URINE 30 mg/dL Sat 15 14:55:00 EDT 2020 Benzodiazepines NEGATIVE ng/mL S un Mar 15 14:55:00 EDT 2020 Alphahydroxyalprazolam DNR ng/mL Sat Mar 15 14:55:00 EDT 2019 Alphahydroxymidazolam DNR ng/mL Sun Mar 15 14:55:00 EDT 2019 Alphahydroxytriazolam DNR ng/mL Sun Mar 15 14:55:00 [...] ng/mL Sun Ma r 15 14:55:00 EDT 2019 Confirmation Testing Performed [...] EDT 2019 Codeine DNR ng/mL Sat Aug 21 12 :48:00 EDT 2019 Hydrocodone DNR [...] ng/mL Jie Sep 02 11:27:00 EDT 2020 Aminoclonazepam DNR ng/mL Jie M ar 26 11:27:00 EDT 2019 Hydroxyethylflurazepam DNR ng/mL Jie Sep 02 11:27:00 EDT 2019 Lorazepam DNR ng/mL Jie Sep 02 11:27:00 EDT 2019 Nordiazepam DNR ng/mL Jie Mar 2 6 11:27:00 EDT 2019 Oxazepam DNR ng/mL Jie Sep 02 1 1:27:00 EDT 2019 Temazepam DNR ng/mL Jie Sep 02 11:27:00 EDT 2020 Confirmation Testing Performed at: DNR Ije Sep 02 11:27:00 EDT 2019 COMMENT Jie [...] :27:00 EDT 2020 Opiates NEGATIVE ng/mL Jie Mar 2 6 11:27:00 EDT 2020 Codeine DNR ng/mL Jie Sep 02 11 :27:00 EDT 2020 Hydrocodone DNR ng/mL Jie Mar 2 6 11:27:00 EDT 2020 Hydromorphone DNR ng/mL Jie Sep 02 11:27:00 EDT 2020 Morphine DNR ng/mL Jie Mar 26 1 1:27:00 EDT 2020 Norhydrocodone DNR ng/mL Jie Ma r 26 11:27:00 EDT 2020 Confirmation Testing Performed at: DNR Jie Sep 02 11:27:00 EDT 2019 COMMENT SatSep 02 11 :27:00 EDT 2019 Buprenorphine Jie Sep 02 11:27:00 EDT 2019 Norbuprenorphine SatSep 02 11:27:00 EDT 2019 CREATININE, RANDOM URINE 15 mg/dL SatSep 17:48:00 EDT 2019 Fentanyl NEGATIVE ng/mL SatSep 17:48:00 EDT 2019 Norfentanyl NEGATIVE ng/mL Sat:48:00 EDT 2019 COMMENT SatSep 17 :48:00 EDT 2019 Benzodiazepines NEGATIVE ng/mL F Sep 17:48:00 EDT 2019 Alphahydroxyalprazolam DNR ng/mL SatSep 17:48:00 EDT 2019 Alphahydroxymidazolam DNR ng/mL SatSep 17:48:00 EDT 2019 Alphahydroxytriazolam DNR ng/mL SatSep 17:48:00 EDT 2019 Aminoclonazepam DNR ng/mL Sat pr 03 10:48:00 EDT 2019 Hydroxyethylflurazepam DNR ng/mL SatSep 17:48:00 EDT 2019 Lorazepam DNR ng/mL SatSep 17:48:00 EDT 2019 Nordiazepam DNR ng/mL SatSep 08 0 :48:00 EDT 2019 Oxazepam DNR ng/mL SatSep 17 [...] Alcohol, Ethyl NEGATIVE mg/dL Fr i Sep 17:48:00 EDT 2019 Alcohol, Ethyl DNR mg/dL Fri [...] :48:00 EDT 2019 Opiates NEGATIVE ng/mL Sat Apr 1 0 01:48:00 EDT 2019 Codeine DNR ng/mL SatSep 17 01 :48:00 EDT 2019 Hydrocodone DNR ng/mL Sat 1 0 01:48:00 EDT 2019 Hydromorphone DNR ng/mL SatSep 17 01:48:00 EDT 2019 Morphine DNR ng/mL Sat 10 0 1:48:00 EDT 2019 Norhydrocodone DNR ng/mL Sat Ap r 10 01:48:00 EDT 2019 Confirmation Testing Performed at: DNR SatSep 17 01:48:00 EDT 2019 COMMENT SatSep 17 01 :48:00 EDT 2019 Buprenorphine 18 ng/mL SatSep 17 01:48:00 EDT 2019 Norbuprenorphine 31 ng/mL SatSep 17 01:48:00 EDT 2019 COMMENT SatSep 17 01 :48:00 EDT 2020 CREATININE, RANDOM URINE 31 mg/dL SatOct 01 [...] :02:00 EDT 2019 Alcohol, Ethyl NEGATIVE mg/dL i Oct 01 02:02:00 EDT 2019 Alcohol, [...] Metabolites 15.00Negativ eNegative ng/mL SatOctober 15:17:08 EDT 2019 Cotinine 1323.00PRESUMPTIVE POSI TIVEPRESUMPTIVE POSITIVE ng/mL SatOctober 15:17:08 EDT 2019 EDDP -121.00NegativeNegative ng/ mL SatOctober 15:17:08 EDT [...] 14:39:04 EDT 2020 Desmethyldoxepin 1.090Negative *Negative ng/mL [facility] October 16 14:39:05 EDT 2020 Doxepin 8.060NegativeNegative ng /mL [facility] October 16 14:39:05 EDT 2019 Imipramine 6.300NegativeNegative ng/mL [facility] October 16 14:39:05 EDT 2019 Nortriptyline 5.360NegativeNegative ng/mL [facility] October 16 14:39:05 EDT 2019 Amitriptyline 11.540NegativeNegativ e ng/mL [facility] October 16 14:39:05 EDT 2019 Clomipramine 8.540NegativeNegative* ng/mL [facility] October 16 14:39:05 EDT 2019 Desipramine 5.480NegativeNegative * ng/mL [facility] October 16 14:39:06 EDT 2020 Creatinine 204.1NORMALNORMAL mg/ dL [facility] Feb 03 14:38:10 EDT 2020 pH 6.3NORMALNORMAL SatFeb 03 14:38:32 EDT 2020 Oxidants -17.00NegativeNegative mcg/mL [facility] Feb 03 14:36:48 EDT 2019 Validity Result VALIDVALIDVALID Jie Feb 03 14:45:22 EDT 2020 Amphetamines 209.00NegativeNegative ng/mL [facility] Feb 03 14:33:53 EDT 2020 Barbiturates -15.00NegativeNegative ng/mL Jie Feb 03 14:34:12 EDT 2020 Benzodiazepines -31.00Negative *Negative ng/mL Jie Feb 03 14:34:21 EDT 2020 Buprenorphine 0.80NegativeNegative* ng/mL Jie Feb 03 14:34:27 EDT 2020 Cocaine Metabolites 175.00Negati veNegative ng/mL Jie Feb 03 14:35:00 EDT 2020 Cotinine 1671.00PRESUMPTIVE POSI TIVEPRESUMPTIVE POSITIVE ng/mL [facility] Feb 03 14:35:07 EDT 2020 EDDP -91.00NegativeNegative ng/m L [facility] Feb 03 14:35:14 EDT 2020 Ethyl Glucuronide 26.00Negative* Negative ng/mL Jie Feb 03 14:35:21 EDT 2020 Ethyl Alcohol 7.00NegativeNegative* mg/dL [facility] Feb 03 14:35:46 EDT 2020 Fentanyl 0.100NegativeNegative n g/mL [facility] Feb 03 14:35:53 EDT 2020 Heroin (6-AM) -1.30NegativeNegative ng/mL [facility] Feb 03 14:35:59 EDT 2020 Methadone -37.00NegativeNegative ng/mL [facility] Feb 03 14:36:13 EDT 2020 Opiates -32.00NegativeNegative n g/mL [facility] Feb 03 14:36:28 EDT 2020 Synthetic Opiates -13.00Negative Negative ng/mL [facility] Feb 03 14:37:06 EDT 2020 Phencyclidine -4.90NegativeNegative ng/mL [facility] Feb 03 14:37:16 T 2020 Cannabinoids 7.80NegativeNegative * ng/mL [facility] Feb 03 14:37:27 EDT 2020 Tramadol -18.00NegativeNegative ng/mL [facility] Feb 03 14:37:51 EDT 2020 Tricyclics 16.00NegativeNegative ng/mL Jie Feb 03 14:38:40 EDT 2020 Ecstasy (MDMA) -1.00NegativeNegativ e ng/mL Jie Feb 03 14:38:49 EDT 2020 Buprenorphine 0.000Negative - In consistentNegative ng/mL SatFeb 04 11:55:39 EDT 2020 Norbuprenorphine 0.620Negative - InconsistentNegative ng/mL SatFeb 04 11:55:39 EDT 2019 Naloxone 0.000Negative - Inconsi stentNegative ng/mL SatFeb 04 11:55:39 2019 Creatinine 30.8NORMALNORMAL mg/d L SatApr 14 20:51:41 2019 pH 8.2NORMALNORMAL SatApr 14 20:51:41 2019 Oxidants -14.00NegativeNegative mcg/mL Jie Apr 14 20:51:41 2019 Validity Result VALIDVALIDVALID Jie Apr 14 21:00:28 2019 Amphetamines 62.00NegativeNegative* ng/mL SatApr 14 20:51:41 2019 Barbiturates 0.00NegativeNegative * ng/mL SatApr 14 20:51:41 2019 Benzodiazepines -3.00Negative Negative ng/mL SatApr 14 20:51:41 2019 Buprenorphine 43.40PRESUMPTIVE P OSITIVEPRESUMPTIVE POSITIVE ng/mL SatApr 14 20:51:41 2019 Cocaine Metabolites 7.00Negative Negative ng/mL SatApr 14 20:51:41 2019 Cotinine 763.00PRESUMPTIVE POSIT CHIARAPRESUMPTIVE POSITIVE ng/mL SatApr 14 20:51:41 2019 EDDP -34.00NegativeNegative ng/m L SatApr 14 20:51:41 2019 Ethyl Glucuronide -12.00Negative Negative ng/mL Jie Apr 14 20:51:41 2019 Ethyl Alcohol 1.00NegativeNegative* mg/dL Jie Apr 14 20:51:41 2019 Fentanyl 0.300NegativeNegative n g/mL SatApr 14 20:51:41 2019 Heroin (6-AM) 1.10NegativeNegative* ng/mL Jie Apr 14 20:51:41 2019 Methadone -11.00NegativeNegative ng/mL SatApr 14 20:51:41 2019 Opiates 0.00NegativeNegative ng/ mL SatApr [...] 14:02:52 2019 Norbuprenorphine 75.050Positive - ConsistentPOSITIVE ng/mL SatApr 16 14:02:52 2019 Naloxone 33.950Positive - Consis tentPOSITIVE ng/mL SatApr 16 14:02:52 2019 Creatinine 173.1NORMALNORMAL mg/ dL SatMay 18 17:21:07 2019 pH 6.0NORMALNORMAL SatMay 18 17:21:07 2019 Oxidants -17.00NegativeNegative mcg/mL SatMay 18 17:21:07 2019 Validity Result VALIDVALIDVALID SatMay 18 17:30:06 2019 Amphetamines 449.00NegativeNegative ng/mL SatMay 18 17:21:04 2019 Barbiturates 41.00NegativeNegative* ng/mL SatMay 18:21:04 2019 Benzodiazepines 14.00Negative Negative ng/mL SatMay 18 17:21:04 2019 Buprenorphine 121.90PRESUMPTIVE POSITIVEPRESUMPTIVE POSITIVE ng/mL SatMay 18 17:21:25 2019 Cocaine Metabolites -16.00Negati veNegative ng/mL SatMay 18:21:04 2019 Cotinine 988.00PRESUMPTIVE POSIT CHIARAPRESUMPTIVE POSITIVE ng/mL SatMay 18 17:21:37 2019 EDDP -145.00NegativeNegative ng/ mL SatMay 18 17:21:05 2019 Ethyl Glucuronide 42.00Negative* Negative ng/mL SatMay 18 20:44:07 2019 Ethyl Alcohol -3.00NegativeNegative mg/dL SatMay 18:21:06 2019 Fentanyl 0.500NegativeNegative n g/mL SatMay 18:21:06 2019 Heroin (6-AM) 2.80NegativeNegative* ng/mL SatMay 18 17:21:06 2019 Methadone -15.00NegativeNegative ng/mL SatMay 18 17:21:06 2019 Opiates -36.00NegativeNegative n g/mL SatMay 18:21:06 2019 Synthetic Opiates -17.00Negative Negative ng/mL SatMay 18 17:21:06 2019 Phencyclidine 23.00NegativeNegative ng/mL SatMay 18 17:21:06 2019 Cannabinoids -16.40NegativeNegative ng/mL SatMay 18:21:06 2019 Tramadol 37.00NegativeNegative n g/mL SatMay 18 17:21:06 2019 Tricyclics 594.00PRESUMPTIVE POS ITIVEPRESUMPTIVE POSITIVE ng/mL SatMay 18 17:21:36 2019 Ecstasy (MDMA) 79.00NegativeNegativ e ng/mL Wed May 18 17:21:07 2019 Buprenorphine 250Positive - [...] May 19 16:33:47 2019 Amitriptyline 2.100NegativeNegative ng/mL SatMay 19 16:33:47 2019 Clomipramine 37.370NegativeNegative ng/mL SatMay [...] SatJun 02 08:20:16 2019 Clomipramine 10.470NegativeNegative ng/mL Jie [...] 2019 Trazodone 50Positive - Consisten tPOSITIVE> ng/mL Sat Jun 04 13:42:11 2019 mCPP 50Positive - Consistent *POSITIVE> ng/mL Sat Jun 04 13:42:11 2019 Creatinine 153.7NORMALNORMAL mg/ dL SatJul 12 19:41:14 2020 pH 7.4NORMALNORMAL SatJul 12 19:41:14 2020 Oxidants -11.00NegativeNegative mcg/mL SatJul 12 19:41:14 2020 Validity Result VALIDVALIDVALID SatJul 12 19:45:21 2020 Amphetamines 299.00NegativeNegative ng/mL e Jul 12 19:41:14 2020 Barbiturates -2.00NegativeNegative* ng/mL SatJul 12 19:41:14 2020 Benzodiazepines 3.00NegativeNegativ e ng/mL SatJul 12 19:41:14 2020 Buprenorphine 111.10PRESUMPTIVE POSITIVEPRESUMPTIVE POSITIVE ng/mL SatJul 12 19:41:14 2020 Cocaine Metabolites -28.00Negati veNegative ng/mL SatJul 12 19:41:14 2020 Cotinine 649.00PRESUMPTIVE POSIT CHIARAPRESUMPTIVE POSITIVE ng/mL e Jul 12 19:41:14 2020 EDDP -97.00NegativeNegative ng/m L [...] 19:41:16 2020 Buprenorphine 216.190Positive - ConsistentPOSITIVE ng/mL [facility] Jul 13 11:17:06 2020 Norbuprenorphine 476.890Positive - ConsistentPOSITIVE ng/mL SatJul 13 11:17:06 2020 Naloxone 629.130Positive - Incon sistentPOSITIVE ng/mL SatJul 13 11:17:06 2020 Norfentanyl 0.610NegativeNegative * ng/mL [facility] Jul 13 11:17:06 2020 Fentanyl 0.040NegativeNegative n g/mL SatJul 13 11:17:06 EST 2021 Carfentanil 0.040NegativeNegative * ng/mL SatJul 13 11:17:06 [...] 2020 Aripiprazole 0.000NegativeNegative* ng/mL SatJul 13 10:13:02 EST 2020 Chlorpromazine 0.160NegativeNegativ e ng/mL Satb 10:13:02 EST 2020 Clozapine 0.020NegativeNegative ng/mL SatJul 13 10:13:02 2020 Fluphenazine 0.090NegativeNegative* ng/mL SatJul 13 10:13:03 EST 2020 Haloperidol 0.040NegativeNegative * ng/mL SatJul 13 10:13:03 EST 2020 Lurasidone 0.280NegativeNegative ng/mL [facility] Jul 13 10:13:03 2020 Olanzapine 0.140NegativeNegative ng/mL SatJul 13 10:13:03 2020 Promethazine 0.020NegativeNegative* ng/mL [facility] Jul 13 10:13:03 2020 Quetiapine 50Positive - Consiste ntPOSITIVE> ng/mL [facility] Jul 13 10:13:03 2020 Risperidone 0.000NegativeNegative * ng/mL SatJul 13 10:13:03 2020 Trifluoperazine 0.230Negative Negative ng/mL [facility] Jul 13 10:13:03 2020 Ziprasidone 0.000NegativeNegative * ng/mL [facility] Jul 13 10:13:03 2020 Bupropion 50Positive - Consisten tPOSITIVE> ng/mL [facility] Jul 13 10:13:03 2020 Hydroxybupropion 50Positive - Co nsistentPOSITIVE> ng/mL [facility] Jul 13 10:13:03 2020 Trazodone 50Positive - Consisten tPOSITIVE> ng/mL [facility] Jul 13 10:13:03 2020 mCPP 50Positive - Consistent *POSITIVE> ng/mL [facility] Jul 13 10:13:03 2020 Creatinine 221.8NORMALNORMAL [...] Clozapine 0.010NegativeNegative ng/mL Sat Sep 17 07:57:44 ED2020 Fluphenazine 0.100NegativeNegative* ng/mL Sat Sep 17 07:57:44 [...] ED2020 PH 6.0 SatDec 29 12:55:0 0 EDT 2020 GLUCOSE NEGATIVE Jie Dec 29 12 :55:00 EDT 2020 BILIRUBIN NEGATIVE Jie Dec 29 12:55:00 EDT 2020 KETONES NEGATIVE Jie Dec 29 12 :55:00 EDT 2020 OCCULT BLOO 3+ Jie Dec 09 2 12:55:00 EDT 2020 PROTEIN 3+ Jie Dec 29 12 :55:00 EDT 2020 NITRITE POSITIVE Jie Dec 29 12 :55:00 EDT 2020 LEUKOCYTE E NEGATIVE Jie Dec 09 2 12:55:00 EDT 2020 WBC 6-10 /HPF Jie Dec 29 12:55: 00 EDT 2020 RBC 0-2 /HPF Jie Dec 29 12:55: 00 EDT 2020 SQUAMOUS EP 10-20 /HPF Jie Dec 09 2 12:55:00 EDT 2020 TRANSITIONA DNR /HPF Jie Dec 09 2 12:55:00 EDT 2020 RENAL EPITH DNR /HPF Jie Dec 09 2 12:55:00 EDT 2020 BACTERIA MODERATE /HPF Jie Dec 09 12:55:00 EDT 2020 CALCIUM OXA MANY /HPF [...] Dec 29 12:55 :00 EDT 2020 E [id number] null GLUCOSE 92 mg/dL SatJan 04 11 [...] W/ NON-REACTIVE Sat 11:34:00 EDT 2020 E [id number] null Medications Medication Directions Start Date End Date CEFDINIR 300 MG CAPSULE 1 Capsule B [...] 1 Capsule Daily ORAL SatDec 31 18:16:00 ED2020Jan 28 18:15:00 EDT 2020 NICOTINE 21 MG/24 [...] ACETATE) 0.15 MG/1 ACT UATION SPRAY 1 [place] BIDPRN: Twice A Day As Needed NASAL [...] a Day ORAL SatDec 30:00:00 EDT 2020Jan 27 05:59 :00 EDT 2020 QUETIAPINE FUMARATE 25 MG TABLET 1 Tablet TID: Three Times a Day ORAL SatDec 30:00:00 EDT 2020Jan 27 05:59 :00 EDT 2020 SEROQUEL (QUETIAPINE FUMARATE) 100 MG TABLET 1 Tablet HS: At Bedtime ORAL (Takes with 25mg of Seroquel) SatDec 30 06:00:00 EDT 2020Jan 27 05:59:00 EDT 2020 CLONIDINE HCL 0.1 MG TABLET 1 Table t TID: Three Times a Day ORAL (MDD 1mg. See clonidine 0.2mg) SatDec 30 06:00:00 EDT 2020Jan 27 05:59:00 EDT 2020 HYDROXYZINE HCL 25 MG TABLET 1 Tabl et TID: Three Times a Day ORAL SatDec 30 06:00:00 EDT 2020Jan 27 05:59 :00 EDT 2020 SINGULAIR (MONTELUKAST SODIUM) 10 MG TABLET 1 Tablet Daily ORAL SatDec 30 06:00:00 ED2020Jan 27 05:59 :00 EDT 2020 VENLAFAXINE HCL 37.5 MG CAPSULE, EXTENDED RE LEASE 1 Capsule Daily ORAL SatDec 30 06:00:00 ED2020Jan 27 05:59 :00 EDT 2020 MIRALAX (POLYETHYLENE GLYCOL 3 350) 17 GM/1 DOSE POWDER FOR SOLUTION 17 gm Daily As Needed ORAL SatDec 30 06:00:00 EDT 2020Jan 27 05:59:00 EDT 2020 ACETAMINOPHEN 500 MG CAPSULE 2 caps ule Q6-8HPRN: Every 6-8 Hours As Needed ORAL (MDD 8 Tabs) SatDec 28 16:02:00 ED2020Jan 25 16::00 ED2020 BENADRYL ALLERGY (DIPHENHYDRAM INE HYDROCHLORIDE) 25 MG TABLET 1 tablet TIDPRN: Three Times A Day As Needed ORAL SatDec 28 16:02:00 2020Jan 25 16:01:00 EDT 2020 COLACE (DOCUSATE SODIUM) 100 MG CAPSULE, LIQ UID FILLED 1 capsule Daily As Needed ORAL SatDec 28 16:02:00 ED2020Jan 25 16:01:00 EDT 2020 FIBER-LAX 625 MG TABLET 2 tablet MT N: As Needed ORAL (MDD 4 Tabs) SatDec 28 16:02:00 ED2020Jan 25 16:01 :00 EDT 2020 MILK OF [...] SatDec 28 16:02:00 ED2020Jan 25 16:01:00 ED2020 ORAJEL MOUTH SORE MEDICINE (BE NZALKONIUM CHLORIDE-BENZOCAINE/ZINC [...] EDT 2020Jan 25 16:14 :00 EDT 2020 VENLAFAXINE HCL 37.5 MG TABLET 1 Tablet D aily ORAL SatDec 28 16:12:00 EDT 2020Dec 30 09:41:00 EDT 2020 LAMICTAL (LAMOTRIGINE) 25 MG TABLET [...] EDT 2020Dec 30 09:38 :00 EDT 2020 PRAZOSIN HCL 5 MG CAPSULE 1 Capsule HS: At Bedtime ORAL SatDec 28 16:07:00 EDT 2020Jan 09 09:27 :00 EDT 2020 cloNIDine HCl 0.1 MG TAB Take one ( 1) tablet by mouth three times a day, as needed SatDec 09 00:00:00 EDT 2020Feb 06 00:00:00 EDT 2020 Minipress 1 MG CAP Take one (1) cap robert by mouth daily SatDec 09:00:00 EDT 2020Feb 06:00 :00 EDT 2020 SEROquel [...] tablet by mouth at bedtime SatDec 09:00:00 EDT 2020Feb 06:00:00 EDT 2020 Topamax 25 MG CAP Take one (1) caps ule by mouth twice a day SatDec 09 00:00:00 EDT 2020Feb 06:00 :00 EDT 2020 Vistaril 25 MG CAP Take one (1) cap robert by mouth three times a day, as needed for anxiety SatDec 09 00:00:00 ED2020Feb 06 00:00:00 2020 SEROquel 25 MG TAB Take one (1) tab let by mouth three times a day SatDec 09 00:00:00 ED2020Feb 06 00:00 :00 2020 Effexor XR 37.5 [...] 1) tablet by mouth daily SatMay 30 00:00:2019Jul 28 00:00 :00 2020 Vistaril 25 MG CAP Take one (1) cap robert by mouth three times a day, as needed for anxiety SatMay 30:00:2019Jul 28 00:00:00 2020 SEROquel 25 MG TAB Take one (1) tab let by mouth three times a day SatMay 30:00:2019Jul 28 00:00 :00 2020 lamoTRIgine 25 MG TAB Take two (2) tablets by mouth at bedtime SatMay 30:00:00 2019Jul 28 00:00 :00 2020 Buprenorphine-Naloxone 0.0 BRAN Aaron ce one (1) film under the tongue three times a day SatMay 17:00:00 2019May 30:00:00 2019 cloNIDine HCl 0.1 MG TAB Take one ( 1) tablet by mouth three times a day, as needed SatMay 17:00:2019May 30:00:00 EST 2020 Minipress 1 MG CAP Take one (1) cap robert by mouth daily SatMay 17:00:00 2019May 30:00 :00 EST 2020 traZODone hydrochloride 100 MG TAB Take one (1) tablet by mouth at bedtime SatMay 17:00:00 2019May 30:00:00 EST 2020 Wellbutrin XL 150 MG T24 Take one ( 1) tablet by mouth daily SatMay 17:00:00 2019May 30 00:00 :00 2020 Vistaril 25 MG CAP Take one (1) cap robert by mouth three times a day, as needed for anxiety SatMay 17:00:00 EST 2019May 30:00:00 EST 2020 SEROquel 25 MG TAB Take one (1) tab let by mouth three times a day SatMay 17:00:00 2019May 30:00 :00 EST 2020 lamoTRIgine 25 MG TAB Take two (2) tablets by mouth at bedtime SatMay 17 00:00:00 EST 2019May 30 00:00 :00 EST 2020 Minipress 5 MG CAP Take one (1) cap robert by mouth at bedtime SatMay 17 00:00:2019Jul 15 00:00 :00 2020 Buprenorphine-Naloxone 0.0 BRAN Aaron ce one (1) film under the tongue three times a day SatMay 03:00:00 2019May 17 00:00:00 2019 Buprenorphine-Naloxone 0.0 BRAN Aaron ce one (1) film under the tongue three times a day SatApr 25 00:00:00 2019May 02 00:00:00 2019 Buprenorphine-Naloxone 0.0 BRAN Aaron ce one (1) film under the tongue three times a day SatApr 19 00:00:00 2019Apr 25 00:00:00 2019 DDAVP 0.0 SPR Argillite two (2) sprays in nostril(s) daily SatApr 12:00:00 2019Sep 09 00:00 :00 ED2020 cloNIDine HCl 0.1 [...] mouth daily SatApr 12:00:00 2019Sep 09:00 :00 ED2020 Ibuprofen 600 MG TAB Take one (1) t ablet by mouth twice a day, as needed for pain SatApr 12:00:00 2019Sep 09:00:00 ED2020 Anoro Ellipta 0.0 POW Inhale one [...] 10 00:00 :00 2020 Narcan 0.0 SPR Argillite one (1) spray in nostril(s) daily SatApr [...] under the tongue daily SatApr 07 00:00:00 EDT 2019Apr 12 00:00 :00 2019 ZyPREXA 10 [...] 03 00:00 :00 2019 Narcan 0.0 SPR Argillite one (1) spray in nostril(s) daily SatNovember [...] by mouth daily SatNovember 03 00:00:00 2019 [facility] Dec 02 00:00 :00 2019 Topamax 25 MG CAP Take one (1) caps ule by mouth twice a day SatNovember 03 00:00:00 2019Jan 01 00:00 :00 2019 traZODone hydrochloride 50 MG TAB T deb one (1) tablet by mouth at bedtime SatNovember 03 00:00:00 2019 [facility] Dec 02 00:00:00 2019 Zubsolv 0.0 TAB [...] 2019Sep 09 00:00:00 2020 DDAVP 0.0 SPR Argillite two (2) sprays in nostril(s) daily SatApr 12 00:00:00 2019Sep 09 00:00 :2020 rOPINIRole HCl 0.25 MG TAB Take one [...] 09 00:00 :00 2020 Narcan 0.0 SPR Argillite one (1) spray in nostril(s) daily SatApr [...] twice a day SatAug 05 00:00:00 EST 2019Aug 17 00:00 :00 EDT 2020 METRONIDAZOLE 500 MG TABLET Fri Feb 21 08:00:00 EST 2020 Sat 02 07:59:00 EST 2020 QUETIAPINE FUMARATE 100 [...] EDT 2020 PRAZOSIN HCL 2 MG CAPSULE SatJul 21 21:00:00 2019Aug 17 21:59:00 EDT 2019 SUBOXONE (BUPRENORPHINE-NALOXONE) 8MG-2MG FILM Sat Feb 10 23:24:00 2019 Jie Feb 20 23:23:00 EST 2019 TRAZODONE HYDROCHLORIDE 50 MG TABLET Sat Feb 10 23:24:00 2019Aug 17 00:23:00 EDT 2019 NARCAN (NALOXONE HCL) 4 MG/0.1 ML SPRAY Sat Feb 10 :24:00 2019 Feb 24 23:23:00 EST 2019 VENTOLIN HFA (ALBUTEROL SULFAT E) 0.09 MG/1 ACTUATION SUSPENSION Sat Feb 10 :24:00 2019Aug 17 00:23:00 EDT 2019 NARCAN (NALOXONE HCL) 4 MG/0.1 ML SPRAY Sat Feb 10 23:24:00 2019b 24 23:23:00 EST 2019 PEPCID (FAMOTIDINE) 40 MG TABLET Sat Feb 10 23:24:00 2019Aug 17 00:23:00 EDT 2019 ORAJEL MOUTH SORE MEDICINE (BE NZALKONIUM CHLORIDE-BENZOCAINE/ZINC CHLORIDE) 0.02%-20%-0.1% GEL/JELLY Sat Feb 1 0 23:24:00 2019Aug 17 00:23:00 EDT 2019 MYLANTA (ALUMINUM HYDROXIDE-MA GNESIUM HYDROXIDE-SIMETHICONE) 200MG/5 ML-200MG/5 ML-20MG/5 ML SUSPENSION Sat Feb 10 :24:00 2019Aug 17 00:23:00 EDT 2019 MULTIVITAMIN TABLET Sat Feb 10 23:24:00 2019Aug 17 00:23:00 EDT 2019 MELATONIN 5 MG CAPSULE Sat Feb 10 :24:00 2019Aug 17 00:23:00 EDT 2019 ICY HOT (MENTHOL-METHYL SALICYLATE) 10%-30% CREAM Sat Feb 10 23:24:00 2019Aug 17 00:23:00 EDT 2019 FIBER-LAX 625 MG TABLET Sat Feb 10 23:24:00 2019Aug 17 00:23:00 EDT 2020 CLARITIN (LORATADINE) 10 MG TABLET Mon Feb 10 :24:00 EST 2019 10 00:23:00 EDT 2019 BENADRYL ALLERGY (DIPHENHYDRAM INE HYDROCHLORIDE) 25 MG TABLET Mon Feb 10 :24:00 EST 2019Aug 17 00:23:00 EDT 2019 TUMS (CALCIUM CARBONATE) 500 MG TABLET, CHEWABLE Mon Feb 10 ::00 2019 10 00:23:00 EDT 2019 GAS-X (SIMETHICONE) 80 MG TABLET, CHEWABLE Mon Feb 10 ::00 2019Aug 17 00:23:00 EDT 2019 ACETAMINOPHEN (TYLENOL) 500 MG TABLET Mon Feb 10 ::00 2019Aug 17 00:23:00 EDT 2019 NICOTINE POLACRILEX 4 MG LOZENGE/BERTHA Mon Feb 10 ::00 EST 2020 Mon Feb 24 ::00 EST 2020 MONTELUKAST SODIUM 10 MG TABLET Mon Feb 10 :: EST 2019Aug 17 00:23:00 EDT 2019 ADVAIR DISKUS 250/50 (FLUTICAS ONE PROPIONATE-SALMETEROL XINAFOATE) 0.25MG/1 ACTUATION-0.05MG/1 ACTUATION DISK Mo n Feb 10 ::2019Aug 17 00:23:00 EDT 2019 HYDROXYZINE HCL 25 MG TABLET Mon Feb 10 :24:00 EST 2020 Sat Feb 15 :23:00 EST 2020 ZOFRAN (ONDANSETRON) 4 MG TABLET, DISINTEGRATING Mon Feb 10 :: EST 2020 Sat Feb 15 ::00 EST 2020 CATAPRES (CLONIDINE HYDROCHLORIDE) 0.1 MG TABLET Mon Feb 10 :24:00 EST 2020 Sat Feb 15 :23:00 EST 2020 XOPENEX (LEVALBUTEROL HYDROCHLORIDE) 1.25 MG /3 ML SOLUTION Mon Feb 10 :24:00 2019Aug 17 00:23 :00 EDT 2019 TRIPLE ANTIBIOTIC OINTMENT 40 0UNITS/1GM-3.5MG/1GM-5000UNITS/1GM OINTMENT Mon Feb 10 :24:00 EST 2019Aug 17 00:23:00 EDT 2019 PEPTO-BISMOL (BISMUTH [...] MG TABLET, CHEWABLE Sat Feb 08 15:55:00 2019 Sat Mar 07 15:54:00 EST 2019 TUMS (CALCIUM CARBONATE) 500 MG TABLET, CHEWABLE Sat Feb 08 15:55:00 2019 Sat Mar 07 15:54:00 2019 BENADRYL ALLERGY (DIPHENHYDRAM INE HYDROCHLORIDE) 25 MG TABLET Sat Feb 08 15:55:00 EST 2019 Sa t Mar 07 15:54:00 2019 BENADRYL ALLERGY (DIPHENHYDRAM INE HYDROCHLORIDE) 25 MG TABLET Sat Feb 08 15:55:00 2019 Aug 14 15:54:00 EST 2020 CLARITIN (LORATADINE) 10 MG TABLET Sat b 08 15:55:00 EST 2019Aug 14 15:54:00 EST 2019 COLACE (DOCUSATE SODIUM) 100 MG CAPSULE, LIQ UID FILLED Sat b 15:55:00 EST 2019Aug 14 15:54 :00 EST 2019 FIBER-LAX 625 MG TABLET Sat Jul 18 15:55:00 EST 2019Aug 14 15:54:00 EST 2019 GUAIFENESIN 600 MG TABLET, EXTENDED RELEASE Sat Jul 18 15:55:00 EST 2019Aug 14 15:54:00 EST 2020 ICY HOT (MENTHOL-METHYL SALICYLATE) 10%-30% CREAM Sat Jul 18 15:55:00 EST 2019Aug 14 15:54:00 EST 2019 MELATONIN 5 MG CAPSULE Sat b 15:55:00 EST 2019Aug 14 15:54:00 EST 2020 MILK OF MAGNESIA 400 MG/5 ML SOLUTION Sat Jul 18 15:55:00 EST 2019Aug 14 15:54:00 EST 2020 MULTIVITAMIN TABLET Sat Jul 18 15:55:00 EST 2019Aug 14 15:54:00 EST 2020 MYLANTA (ALUMINUM HYDROXIDE-MA GNESIUM HYDROXIDE-SIMETHICONE) 200MG/5 ML-200MG/5 ML-20MG/5 ML SUSPENSION Sat Jul 08 15:55:00 EST 2019Aug 14 15:54:00 EST 2020 ORAJEL MOUTH SORE MEDICINE (BE NZALKONIUM CHLORIDE-BENZOCAINE/ZINC CHLORIDE) 0.02%-20%-0.1% GEL/JELLY Sat Feb 0 8 15:55:00 EST 2019Aug 14 15:54:00 EST 2020 PEPTO-BISMOL (BISMUTH SUBSALICYLATE) 262 MG/ 15 ML SUSPENSION Sat b 08 15:55:00 EST 2019Aug 14 15:54 :00 EST 2020 PEPCID (FAMOTIDINE) 40 MG TABLET Sat Jul 18 15:55:00 EST 2019Aug 14 15:54:00 EST 2020 TRIPLE ANTIBIOTIC OINTMENT 40 0UNITS/1GM-3.5MG/1GM-5000UNITS/1GM OINTMENT Sat Jul 18 15:55:00 EST 2019 t Mar 07 15:54:00 EST 2020 XOPENEX (LEVALBUTEROL HYDROCHLORIDE) [...] ACTUATION DISK t Feb 08 15:55:00 EST 2020 Sat [...] ML SPRAY Wed Feb 05 08:00:00 EST 2019 Wed Feb 19 07:59:00 EST 2020 SUBOXONE (BUPRENORPHINE-NALOXONE) 8MG-2MG FILM Jie Feb 06 08:00:00 EST 2020 Sun Feb 16 07:59:00 EST 2020 SUBOXONE (BUPRENORPHINE-NALOXONE) 4MG-1MG FILM Satb 08:00:00 EST 2020 Jie Feb 06 07:59:00 EST 2020 VENTOLIN HFA (ALBUTEROL SULFAT E) 0.09 MG/1 ACTUATION SUSPENSION SatJul 15 08:00:00 EST 2020 d Aug 11 07:59:00 EST 2020 ADVAIR DISKUS 250/50 (FLUTICAS ONE PROPIONATE-SALMETEROL XINAFOATE) 0.25MG/1 ACTUATION-0.05MG/1 ACTUATION DISK We d Jul 15 08:00:00 EST 2019Aug 11 07:59:00 EST 2020 HYDROXYZINE HCL 25 MG TABLET SatJul 15 12:24:00 EST 2019 Mon Feb 10 12:23:00 EST 2020 ZOFRAN (ONDANSETRON) 4 MG TABLET, DISINTEGRATING SatJul 15 12:24:00 EST 2020 Mon Feb 10 12:23:00 EST 2020 CATAPRES (CLONIDINE HYDROCHLORIDE) 0.1 MG TABLET SatJul 15 12:24:00 EST 2020 Mon Feb 10 12:23:00 EST 2020 NARCAN (NALOXONE HCL) 4 MG/0.1 ML SPRAY SatJul 15 12:24:00 EST 2020 Wed Feb 19 12:23:00 EST 2020 XOPENEX (LEVALBUTEROL HYDROCHLORIDE) 1.25 MG /3 ML SOLUTION SatJul 15 12:24:00 EST 2019Aug 11 12:23 :00 EST 2020 TRIPLE ANTIBIOTIC OINTMENT 40 0UNITS/1GM-3.5MG/1GM-5000UNITS/1GM OINTMENT SatJul 15 12:24:00 EST 2019 d Aug 11 12:23:00 EST 2020 PEPCID (FAMOTIDINE) 40 MG TABLET SatJul 15 12:24:00 EST 2019Aug 11 12:23:00 EST 2020 PEPTO-BISMOL (BISMUTH SUBSALICYLATE) 262 MG/ 15 ML SUSPENSION SatJul 15 12:24:00 EST 2019Aug 11 12:23 :00 EST 2020 ORAJEL MOUTH SORE MEDICINE (BE NZALKONIUM CHLORIDE-BENZOCAINE/ZINC CHLORIDE) 0.02%-20%-0.1% GEL/JELLY Sat 0 5 12:24:00 EST 2019Aug 11 12:23:00 EST 2020 MYLANTA (ALUMINUM [...] CAPSULE, LIQUID FILLED SatJul 15 12:24:00 EST 2019Aug 11 12:23:00 EST 2020 IBUPROFEN 200 MG [...] 12:24:00 EST 2019Aug 11 12:23:00 EST 2019 BENADRYL ALLERGY (DIPHENHYDRAM INE HYDROCHLORIDE) 25 MG TABLET SatJul 15 12:24:2019Aug 11 12:23:00 2019 TUMS (CALCIUM CARBONATE) 500 MG TABLET, CHEWABLE SatJul 15 12:24:00 2019Aug 11 12:23:00 2019 GAS-X (SIMETHICONE) 80 MG TABLET, CHEWABLE SatJul 15 12:24:00 2019Aug 11 12:23:00 2019 ACETAMINOPHEN 500 MG CAPSULE SatJul 15 12:24:00 2019Aug 11 12:23:00 2019 NICODERM CQ (NICOTINE) 14 MG/24 HR PATCH, EX TENDED RELEASE SatJun 26 08:04:00 2019Jul 03 08:03 :00 2019 HYDROXYZINE HCL 25 MG TABLET SatJun 26:04:00 2019Jul 01 08:03:00 2019 ZOFRAN (ONDANSETRON) 4 MG TABLET, DISINTEGRATING SatJun 26 08:04:00 2019Jul 01 08:03:00 2019 CATAPRES (CLONIDINE HYDROCHLORIDE) 0.1 MG TABLET SatJun 26 08:04:00 2019Jul 01 08:03:00 2019 NARCAN (NALOXONE HCL) 4 MG/0.1 ML SPRAY SatJun 26 08:04:00 2019Jul 10 08:03:00 2019 XOPENEX (LEVALBUTEROL HYDROCHLORIDE) 1.25 MG /3 ML SOLUTION SatJun 26 08:04:00 2019 Fri Feb 08:03 :00 2020 TRIPLE ANTIBIOTIC OINTMENT 40 0UNITS/1GM-3.5MG/1GM-5000UNITS/1GM OINTMENT SatJun 26 08:04:00 2019 Fr i Feb 14 08:03:00 EST 2020 PEPCID (FAMOTIDINE) 40 MG TABLET SatJun 26 08:04:00 2020 Fri Feb 14 08:03:00 2020 PEPTO-BISMOL (BISMUTH SUBSALICYLATE) 262 MG/ 15 ML SUSPENSION SatJun 26 08:04:00 2019 Fri Feb 14 08:03 :00 EST 2020 ORAJEL MOUTH SORE MEDICINE (BE NZALKONIUM CHLORIDE-BENZOCAINE/ZINC CHLORIDE) 0.02%-20%-0.1% GEL/JELLY SatJun 10 7 08:04:00 2020 Fri Feb 14 08:03:00 EST [...] EST 2020 Fri Feb 14 08:03:00 EST 2019 ACETAMINOPHEN 500 MG CAPSULE SatJun 26 08:04:00 2019 Fri Jul 24 08:03:00 EST 2019 VALIUM (DIAZEPAM) 5 MG TABLET SatJun 28 08:00:00 2019Jun 29 07:59:00 EST 2019 VALIUM (DIAZEPAM) 5 MG TABLET SatJun 27 08:00:00 EST 2019Jun 28 07:59:00 EST 2019 VALIUM (DIAZEPAM) 5 MG TABLET Sat Jun 27 17:31:00 EST 2019Jun 28 17:30:00 EST 2019 VALIUM (DIAZEPAM) 5 MG TABLET Fri Jun 26 17:31:00 EST 2019 Sat Jun 27 17:30:00 EST 2019 VALIUM (DIAZEPAM) 5 MG TABLET Fri Jun 26 17:31:00 EST 2019Jun 27 17:30:00 EST 2019 VALIUM (DIAZEPAM) 5 MG TABLET SatJun 25 08:00:00 EST 2019Jun 26 07:59:00 EST 2019 VALIUM (DIAZEPAM) 5 MG TABLET SatJun 26 08:00:00 2019Jun 29 07:59:00 EST 2019 VALIUM (DIAZEPAM) 5 MG TABLET SatJun 25 08:00:00 EST 2019Jun 26 07:59:00 EST 2019 SUBOXONE (BUPRENORPHINE-NALOXONE) 4MG-1MG FILM SatJun 25 08:00:00 2019Jul 02 07:59:00 2019 SUBOXONE (BUPRENORPHINE-NALOXONE) 4MG-1MG FILM SatJun 25 08:00:00 EST 2019Jun 26 07:59:00 2019 ADVAIR DISKUS 250/50 (FLUTICAS ONE PROPIONATE-SALMETEROL XINAFOATE) 0.25MG/1 ACTUATION-0.05MG/1 ACTUATION DISK Jun 25 08:00:00 2019u Fe 07:59:00 2020 PROAIR HFA (ALBUTEROL SULFATE) 0.09 MG/1 ACTUATION SUSPENSION SatJun 25 08:00:00 2019 u Feb 07:59:00 2019 NICOTINE 14 MG/24 HR PATCH, EXTENDED RELEASE SatJun 25 08:00:00 2019u Feb 07:59:00 2020 Gabapentin 300 MG CAP Take two (2) capsules by mouth three times a day SatDec 22 00:00:00 EDT 2019 Jie Sep 12 00:00 :00 2018 Prazosin HCl 1 MG CAP Take one (1) capsule by mouth at bedtime SatDec 22 00:00:00 2018 [facility] Sep 12 00:00 :00 2018 traZODone hydrochloride 100 MG TAB Take one (1) or two (2) tablets by mouth at bedtime, as needed. SatDec 22 00:00:00 2018 [facility] Sep 12 00:00:00 2018 Topamax 25 MG CAP Take one (1) caps ule by mouth twice a day SatDec 22 00:00:00 2018 [facility] Sep 00:00 :00 2018 Prazosin HCl 5 MG CAP Take one (1) capsule by mouth at bedtime SatDec 22 00:00:00 2018 [facility] Sep 00:00 :00 2018 hydrOXYzine Pamoate 50 MG CAP Take one (1) capsule by mouth twice a day, as needed SatDec 22:00:00 2018 [facility] Sep 00:00:00 2018 hydrOXYzine Pamoate 50 MG CAP Take one (1) capsule by mouth twice a day, as needed SatNov 24 00:00:00 2018Dec 22:00:00 2018 Prazosin HCl 1 MG CAP Take one (1) capsule by mouth at bedtime SatNov 24 00:00:00 2018Dec 22:00 :00 2018 traZODone hydrochloride 100 MG TAB [...] ACTUATION-0.05MG/1 ACTUATION DISK Sep 23 09:00:00 EDT 2018 Tue October 14 08:59:00 EDT 2018 SUBOXONE (BUPRENORPHINE-NALOXONE) 12MG-3MG FILM SatSep 23 09:00:00 EDT 2018 30 08:59:00 EDT 2018 SUBOXONE (BUPRENORPHINE-NALOXONE) 12MG-3MG FILM [...] HCL 1 MG CAPSULE SatSep 08 12:12:00 ED2018Oct 06 12:11:00 EDT 2018 DICYCLOMINE HCL 20 [...] Active Concerns * Opioid abuse * Code: 4147545 * Start Date: SatJun 10 11:00:00 EST [...] USER-EducationalVoc * Start Date: SatAug 27 08:00:00 2018 * Text: * Alcohol use disorder, severe * Code: 28429116 * Start Date: SatJun 24 07:00:00 2019 * Text: * Severe nicotine withdrawal * Code: 99426440 * Start Date: SatJun 24 07:00:00 2019 * Text: * Stimulant use disorder * Code: 339594238 * Start Date: SatJun 24 07:00:00 2019 * Text: * Synthetic cannabinoid dependence * Code: 942697808 * Start Date: SatJul 15 07:00:00 2019 * Text: * Opioid use disorder, severe, dependence * Code: 17788533 * Start Date: SatJul 15 07:00:00 2019 * Text: * Current every day smoker * Code: 063466736 * Start Date: SatJul 15 07:00:00 2019 * Text: * Bipolar disorder with psychotic features * Code: 69938960 * Start Date: SatSep 29 08:00:00 EDT 2019 * Text: Resolved Concerns * Problem Addiction/Abstinence/Withdrawal * Code: USER-Addiction * Start Date: SatJan 31 08:00:00 2016 * End Date: null * Problem Social/Interpersonal/Recovery Environment * Code: USER-Social * Start Date: SatJan 31 08:00:00 ED2016 * End Date: null * Problem Family * Code: USER-Family * Start Date: SatJan 31 08:00:00 ED2016 * End Date: null * Problem Biomedical * Code: USER-Biomedical * Start Date: SatJan 31 08:00:00 ED2016 * End Date: null * Problem Emotional/Behavioral/State [...] 2019 BP Position 2 Position SatMar 11 11:09:00 EDT 2019 Height 4 9 ft [...] 03 08:56:00 EST 2020 Systolic 123 MM[HG] Sat 24 0 8:56:00 EST 2020 Diastolic 70 MM[HG] Satb 24 08:56:00 EST 2020 Height 4 9 ft Satb 24 08: 56:00 EST 2019 Height 57 in Sat 24 08: 56:00 EST 2019 Height 144.8 cm Satb 24 08: 56:00 EST 2020 Weight Lbs 180 lbs Satb 24 08:56:00 EST 2020 Weight Kgs 81.8 [...] 13:13:00 EST 2020 BP Position 3 Position Jei Feb 0 6 13:13:00 EST 2020 Temperature 97.1 [DEGF] Jie Feb 06 00:33:00 EST 2020 Temperature 36.2 SUSANA Ije Feb 0 6 00:33:00 EST 2020 Heart [...] 25 02:48:00 EST 2020 Temperature 36.3 SUSANA Jie Jun 10 6 02:48:00 EST 2020 Heart Rate [...] 35.7 % SatJun 24 09:45: 00 EST 2019 Temperature 98.0 [DEGF] SatFeb 07 12:39:00 EDT [...]
--- OUTSIDE RECORDS SUMMARY | 2021-03-23 20:19 | CCD ---
Author Author AutogeneDENISHA claros Autogene rated Organization [facility] Address Unknown Phone Unavailable Care Team Providers Care Cocoa [place] Operator Name Role Phone Yaron Lobato AttendingPractitioner1 Peyton Tavarez Practitioner Cassidy Strauss Practitioner Dao Junior Practitioner Javier Goldstein Practitioner Ambar Patel AdmittingPractitioner1 Donna Buenrostro Practitioner Brent Marino Practitioner Swati Katz Practitioner Livia Nguyen AttendingPractitioner1 Kathryn Sinha Practitioner Namrata Armstrong Practitioner Nic Mitchell AttendingPractitioner1 Alvin Fields Practitioner Kylie Ann Practitioner Kodak Koo Practitioner Karla Person Practitioner Tashia Campo Practitioner Carri Moore Practitioner Sneha Celeste Practitioner Quintin Cornell [facility] Zara Valdez Practitioner Zara Flores Practitioner Yung [...] Primary Diagnosis Admission Date/ Time Discharge Date/Time [place] [place] [facility] SatJan 10 11:41:00 EDT 2016 [facility] Waiting SatJun 13 13:54:00 EST 2020Jun 27 17:13:00 EST 2020 [facility] Waiting Heroin use disorder, severe, on maintenance therapy, dependence SatAug 20 09:30:00 EDT 2019October 14 11:29:00 EDT 2019 [facility] Alcohol use disorder, severe SatJun 24 14:16:00 EST 2019Jun 27 13:25:00 EST 2019 [facility] Wed J an 15 02:02:00 EST 2020 [facility] SatJan 08 10:39:00 EDT 2017 [facility] SatSep 24 12:11:00 EDT 2018 [place] [place] [facility] Synthetic cannabinoid dependence SatJul 15 10:25:00 EST 2019Jul 18 14:14:00 EST 2019 [facility] SatSep 24 13:11:00 EDT 2018Mar 02 11:08:00 EDT 2019 [facility] SatJan 09 10:42:00 EDT 2016 [facility] Synthetic davey abinoid dependence SatDec 28 10:30:00 EDT 2020 [facility] SatOct 01 08:57:00 EDT 2019Nov 19 13:39:00 EDT 2019 [facility] SatJul 10 16:04:00 EST 2018 [facility] SatAug 27 14:15:00 EDT 2018 [place] [place] [facility] Synthetic cannabinoid dependence Sat Jul 18 14:16:00 EST 2019Jul 20 11:58:00 EST 2019 [facility] Polysubstance abuse SatJun 24 09:10:00 EST 2019Aug 03 08:17:00 EST 2019 [facility] SatOctober 08 11:40:00 EDT 2017 [place] [facility] SatJan 12 09:36:00 EDT 2017 [facility] SatAug 19 09:30:00 EDT 2019 Lauren Vicente Waiting SatSep 11 09:41:00 EDT 2019 Maude Gilman Severe opioid use disorder SatJul 20 11:59:00 EST 2019 Sat Aug 01 17:29:00 EST 2019 [facility] Heroin use disorder, moderate, dependence SatApr 04 10:25:00 EDT 2019Jan 05 11:15:00 EDT 2020 [facility] Drug abuse counseling and surveillance of drug abuser SatAug 03 08:19:00 2019Feb 15 08:55:00 EDT 2020 Immunizations No Known Immunizations Lab [...] SatJan 19 15:21:00 EDT 2019 eGFR NON-AFR. [place]RAELI DNR mL/min/1.73m2 SatJan 19 15:21:00 EDT 2019 [...] :21:00 EDT 2019 PROTEIN, TOTAL DNR g/dL [facility] 15:21:00 EDT 2019 ALBUMIN DNR g/dL [...] 12 15:21:00 EDT 2019 NEUTROPHILS DNR % [facility] Jan 08 2 15:21:00 EDT 2019 BAND NEUTROPHILS DNR % [facility] Jan 12 15:21:00 EDT 2019 METAMYELOCYTES DNR % Mon Au g 12 15:21:00 EDT 2019 MYELOCYTES DNR % [facility] Jan 12 15:21:00 EDT 2019 PROMYELOCYTES DNR % [facility] Jan 12 15:21:00 EDT 2019 LYMPHOCYTES DNR % [facility] Jan 08 2 15:21:00 EDT 2019 REACTIVE LYMPHOCYTES DNR % [facility] Jan 12 15:21:00 EDT 2019 MONOCYTES DNR % [facility] Jan 12 15:21:00 EDT 2019 EOSINOPHILS DNR % [facility] Jan 08 2 15:21:00 EDT 2019 BASOPHILS DNR % [facility] Jan 19 15:21:00 EDT 2019 BLASTS DNR % [facility] Jan 12 15: 21:00 EDT 2019 NUCLEATED RBC DNR /100 WBC [facility] Sarkis ug 12 15:21:00 EDT 2019 COMMENT(S) DNR [facility] Jan 19 15:21:00 EDT 2019 HCG, QL, URINE NEGATIVE [facility] g 12 15:21:00 EDT 2019 BUPRENORPHINE 530 ng/mL SatJan 23 09:21:00 EDT 2019 NORBUPRENORPHINE >1000 ng/mL SatJan 23 09:21:00 EDT 2019 Benzodiazepines NEGATIVE ng/mL F Jan 23 09:21:00 EDT 2019 Alphahydroxyalprazolam DNR ng/mL SatJan 23 09:21:00 EDT 2019 Alphahydroxymidazolam DNR ng/mL SatJan 23 09:21:00 EDT 2019 Alphahydroxytriazolam DNR ng/mL SatJan 23 09:21:00 EDT 2019 Aminoclonazepam DNR ng/mL Sat ug 16 09:21:00 EDT 2019 Hydroxyethylflurazepam DNR [...] 04 14:04:00 EDT 2019 Amphetamine DNR ng/mL SatJan 09 8 14:04:00 [...] NEGATIVE ng/mL Sat Jun 10 15:16:00 EST 2019 Codeine DNR ng/mL Sat Jun 27 15 [...] APPEARANCE TURBID Sun Jun 28 13:42:00 EST 2019 SPECIFIC GRAVITY 1.033 Sun Jun 28 13:42:00 [...] POSITIVE Sun Jun 28 13 :42:00 EST 2019 LEUKOCYTE ESTERASE 1+ [place] n Jun 28 13:42:00 EST 2019 WBC 40-60 /HPF Sun Jun 28 13:42: [...] EST 2020 UREA NITROGEN (BUN) 11 mg/dL Feb 11:33:00 2020 CREATININE 0.78 mg/dL Satb 11:33:00 2019 eGFR NON-AFR. ISRAELI 101 mL/min/1.73m2 Satb 11:33:00 2019 eGFR 117 mL/min/1.73m2 Satb 11:33:00 2019 BUN/CREATININE RATIO NOT APPLICABLE (calc ) Satb 11:33:00 2019 SODIUM 135 mmol/L Satb 11: 33:00 2019 POTASSIUM 4.8 mmol/L Sat Feb 11:33:00 2019 CHLORIDE 102 mmol/L Satb 1 1:33:00 2020 CARBON DIOXIDE 26 mmol/L Sat b 11:33:00 2019 CALCIUM 9.0 mg/dL Satb 30 04 :33:00 2019 PROTEIN, TOTAL 6.4 g/dL Sat b 11:33:00 2019 ALBUMIN 3.6 g/dL Satb 11 :33:00 2020 GLOBULIN 2.8 g/dL (calc) SatJul 31 11:33:00 2019 ALBUMIN/GLOBULIN RATIO 1.3 (calc) Satb 11:33:00 2019 BILIRUBIN, TOTAL 0.3 mg/dL Satb 11:33:00 2019 ALKALINE PHOSPHATASE 71 U/L Satb 11:33:00 2019 AST 19 U/L Satb 11:33: 00 2020 ALT 19 U/L Satb 11:33: 00 2019 WHITE BLOOD CELL COUNT 9.0 Thousand/uL Satb 11:33:00 2019 RED BLOOD CELL COUNT 4.58 Million/uL Satb 11:33:00 2020 HEMOGLOBIN 14.7 g/dL Satb 11:33:00 2020 HEMATOCRIT 43.1 % Satb 11:33:00 2020 MCV 94.1 fL Satb 11:33: 00 2020 MCH 32.1 pg Satb 11:33: 00 2020 MCHC 34.1 g/dL Satb 11:33 :00 2020 RDW 13.6 % Satb 11:33: 00 2020 PLATELET COUNT 284 Thousand/uL F b 11:33:00 EST 2020 MPV 11.4 fL Sat [...] EST 2020 MONOCYTES 5.1 % Fri Feb 21 11:33:00 EST 2020 EOSINOPHILS 1.1 [...] 2020 HCV RNA, QUANTITATIVE REAL TIME PCR Sat Feb 07 08:31:00 EST 2020 HCV RNA, QUANTITATIVE REAL TIME PCR Fri Feb 09:29:00 EST 2020 HCV RNA, QUANTITATIVE REAL TIME PCR Sat Feb 09:29:00 EST 2020 HCV RNA, QUANTITATIVE REAL TIME PCR <15 NOT DETECTED IU/mL Tue Feb 11 05:49:00 EST 2020 HCV RNA, QUANTITATIVE REAL TIME PCR <1.18 NOT DETECTED Log IU/mL Tue Feb 11 05:49:00 EST 2020 COMMENT Tue Feb 11 05 :49:00 EST 2020 HCV RNA, QUANTITATIVE REAL TIME PCR <15 NOT DETECTED IU/mL Fri Feb 11:33:00 EST 2020 HCV RNA, QUANTITATIVE REAL TIME PCR <1.18 NOT DETECTED Log IU/mL Fri Feb 11:33:00 EST 2020 COMMENT Fri Feb 21 [...] 2 3:32:00 2019 CARBON DIOXIDE 23 mmol/L [facility] r 23:32:00 2019 CREATININE, RANDOM URINE 104 mg/dL SatAug 10 23:32:00 2019 ALBUMIN, URINE 92.9 mg/dL [facility] r 23:32:00 2019 ALBUMIN/CREATININE RATIO, RANDOM URINE 893 mcg/mg creat SatAug 10 23:32:00 2019 CREATININE 0.71 mg/dL SatAug 10 23:32:00 2019 eGFR NON-AFR. ISRAELI 113 mL/min/1.73m2 SatAug 10:32:00 2019 eGFR 132 mL/min/1.73m2 SatAug 10 23:32:00 2019 HEMOGLOBIN 13.2 g/dL SatAug 10:32:00 2019 PARATHYROID HORMONE, INTACT 34 pg/mL SatAug 10:32:00 2019 CALCIUM 8.8 mg/dL SatAug 10 :32:00 2019 PHOSPHATE ( PHOSPHORUS) 4.3 mg/dL SatAug 10:32:00 2019 VITAMIN D,25-OH,TOTAL,IA 19 ng/mL SatAug 10:32:00 2019 PROTEIN, TOTAL 6.8 g/dL r 08 30:32:00 2019 ALBUMIN 3.7 g/dL [...] 23:32:00 EST 2020 BAND NEUTROPHILS DNR % Tue Mar 03 23:32:00 EST 2020 METAMYELOCYTES DNR % e [...] CREATININE, RANDOM URINE 106 mg/dL Fri b 12:48:00 EST 2020 Benzodiazepines NEGATIVE ng/mL F [...] DNR ng/mL SatAug 07 1 2:48:00 EST 2020 Norhydrocodone DNR ng/mL Sat 12:48:00 EST 2019 Confirmation Testing Performed at: DNR SatAug 07 12:48:00 EST 2019 COMMENT SatAug 07 12 :48:00 EST 2020 Buprenorphine SatAug 07 12:48:00 EST 2020 Norbuprenorphine SatAug 07 12:48:00 EST 2020 CREATININE, RANDOM URINE 30 mg/dL Sat 15 14:55:00 EDT 2020 Benzodiazepines NEGATIVE ng/mL S un Mar 15 14:55:00 EDT 2020 Alphahydroxyalprazolam DNR ng/mL Sat 15 14:55:00 EDT 2019 Alphahydroxymidazolam DNR ng/mL Sat 15 14:55:00 EDT 2019 Alphahydroxytriazolam DNR ng/mL Sat 15 14:55:00 EDT 2019 Aminoclonazepam DNR ng/mL Sun ar 15 14:55:00 EDT 2019 Hydroxyethylflurazepam DNR ng/mL Sat 15 14:55:00 EDT 2019 Lorazepam DNR ng/mL Sat Mar 15 14:55:00 EDT 2020 Nordiazepam DNR ng/mL Sat 1 5 14:55:00 EDT 2019 Oxazepam DNR ng/mL Sun Mar 15 1 4:55:00 EDT 2019 Temazepam DNR ng/mL Sun Mar 15 14:55:00 EDT 2019 Confirmation Testing Performed at: DNR Sat Mar 15 14:55:00 EDT 2019 COMMENT Sat Mar 15 14 :55:00 EDT 2020 Cocaine Metabolite NEGATIVE ng/mL Sat Mar 15 14:55:00 EDT 2020 Benzoylecgonine DNR ng/mL Sun M ar 15 14:55:00 EDT 2020 Confirmation Testing Performed at: DNR Sat Mar 15 14:55:00 EDT 2020 COMMENT Sun [...] 2020 Confirmation Testing Performed at: DNR Jie Mar 26 11:27:00 EDT 2019 COMMENT SatSep 02 11 :27:00 EDT 2019 Buprenorphine SatSep 02 11:27:00 EDT 2019 Norbuprenorphine SatSep 02 [...] 1:48:00 EDT 2020 Norhydrocodone DNR ng/mL Sat r 10 01:48:00 EDT 2019 Confirmation Testing [...] EDT 2020 Benzoylecgonine DNR ng/mL Sat pr 02:02:00 EDT [...] 2019 Norhydrocodone DNR ng/mL Sat Ap r 24 02:02:00 EDT 2019 Confirmation [...] 15:17:09 EDT 2020 Methadone -33.00NegativeNegative ng/mL SatOctober 15:17:09 EDT 2020 Opiates -31.00NegativeNegative n g/mL [...] 14:39:04 EDT 2019 Desmethyldoxepin 1.090Negative *Negative ng/mL Sat 09 14:39:05 EDT 2020 Doxepin 8.060NegativeNegative ng /mL [facility] October 16 14:39:05 EDT 2019 Imipramine 6.300NegativeNegative ng/mL [facility] October 16 14:39:05 EDT 2019 Nortriptyline 5.360NegativeNegative ng/mL [facility] October 16 14:39:05 EDT 2019 Amitriptyline 11.540NegativeNegativ e ng/mL [facility] October 16 14:39:05 EDT 2019 Clomipramine 8.540NegativeNegative* ng/mL [facility] October 16 14:39:05 EDT 2019 Desipramine 5.480NegativeNegative * ng/mL [facility] October 16 14:39:06 EDT 2020 Creatinine 204.1NORMALNORMAL mg/ dL Jie Feb 03 14:38:10 EDT 2019 pH 6.3NORMALNORMAL [...] 2020 Cotinine 1671.00PRESUMPTIVE POSI TIVEPRESUMPTIVE POSITIVE ng/mL [facility] Feb 03 14:35:07 EDT 2020 EDDP -91.00NegativeNegative ng/m L [facility] Feb 03 14:35:14 EDT 2020 Ethyl Glucuronide 26.00Negative* Negative ng/mL [facility] Feb 03 14:35:21 EDT 2020 Ethyl Alcohol 7.00NegativeNegative* mg/dL [facility] Feb 03 14:35:46 EDT 2020 Fentanyl 0.100NegativeNegative n g/mL [facility] Feb 03 14:35:53 EDT 2020 Heroin (6-AM) -1.30NegativeNegative ng/mL [facility] Feb 03 14:35:59 EDT 2020 Methadone -37.00NegativeNegative ng/mL [facility] Feb 03 14:36:13 EDT 2020 Opiates -32.00NegativeNegative n g/mL [facility] Feb 03 14:36:28 EDT 2020 Synthetic Opiates -13.00Negative Negative ng/mL [facility] Feb 03 14:37:06 EDT 2020 Phencyclidine -4.90NegativeNegative ng/mL [facility] Feb 03 14:37:16 EDT 2020 Cannabinoids 7.80NegativeNegative * ng/mL [facility] Feb 03 14:37:27 EDT 2020 Tramadol -18.00NegativeNegative ng/mL [facility] Feb 03 14:37:51 EDT 2020 Tricyclics 16.00NegativeNegative ng/mL [facility] Feb 03 14:38:40 EDT 2020 Ecstasy (MDMA) -1.00NegativeNegativ e ng/mL [facility] Feb 03 14:38:49 EDT 2020 Buprenorphine 0.000Negative - In consistentNegative ng/mL SatFeb 04 11:55:39 EDT 2019 Norbuprenorphine 0.620Negative - InconsistentNegative ng/mL SatFeb 04 11:55:39 EDT 2020 Naloxone 0.000Negative - Inconsi stentNegative ng/mL Fri Feb 04 11:55:39 EDT 2020 Creatinine 30.8NORMALNORMAL mg/d L Jie Apr 14 20:51:41 2019 pH 8.2NORMALNORMAL Jie Apr 14 20:51:41 2019 Oxidants -14.00NegativeNegative mcg/mL Jie Apr 14 20:51:41 2019 Validity Result VALIDVALIDVALID Jie Apr 14 21:00:28 2019 Amphetamines 62.00NegativeNegative* ng/mL Jie Apr 14 20:51:41 2019 Barbiturates 0.00NegativeNegative * ng/mL Jie Apr 14 20:51:41 2019 Benzodiazepines -3.00Negative Negative ng/mL SatApr 14 20:51:41 2019 Buprenorphine 43.40PRESUMPTIVE P OSITIVEPRESUMPTIVE POSITIVE ng/mL Jie Apr 14 20:51:41 2019 Cocaine Metabolites 7.00Negative Negative ng/mL Jie Apr 14:51:41 2019 Cotinine 763.00PRESUMPTIVE POSIT CHIARAPRESUMPTIVE POSITIVE ng/mL Jie Apr 14:51:41 2019 EDDP -34.00NegativeNegative ng/m L Jie Apr 14 20:51:41 2019 Ethyl Glucuronide -12.00Negative Negative ng/mL Jie Apr 14 20:51:41 2019 Ethyl Alcohol 1.00NegativeNegative* mg/dL Jie Apr 14 20:51:41 2019 Fentanyl 0.300NegativeNegative n g/mL Jie Apr 14 20:51:41 2019 Heroin (6-AM) 1.10NegativeNegative* ng/mL [...] 18:21:04 2019 Benzodiazepines 14.00Negative Negative ng/mL SatMay 18:21:04 2019 Buprenorphine 121.90PRESUMPTIVE POSITIVEPRESUMPTIVE POSITIVE ng/mL SatMay 18 17:21:25 2019 Cocaine Metabolites -16.00Negati veNegative ng/mL SatMay 18:21:04 2019 Cotinine 988.00PRESUMPTIVE POSIT CHIARAPRESUMPTIVE POSITIVE ng/mL SatMay 18 17:21:37 2019 EDDP -145.00NegativeNegative ng/ mL SatMay 18:21:05 2019 Ethyl Glucuronide 42.00Negative* Negative ng/mL SatMay 18 20:44:07 2019 Ethyl Alcohol -3.00NegativeNegative mg/dL SatMay 18:21:06 2019 Fentanyl 0.500NegativeNegative n g/mL SatMay 18:21:06 2019 Heroin (6-AM) 2.80NegativeNegative* ng/mL SatMay 18 17:21:06 2019 Methadone -15.00NegativeNegative ng/mL SatMay 18:21:06 2019 Opiates -36.00NegativeNegative n g/mL SatMay 18:21:06 2019 Synthetic Opiates -17.00Negative Negative ng/mL [facility] May 18 17:21:06 2019 Phencyclidine 23.00NegativeNegative ng/mL [facility] May 18 17:21:06 2019 Cannabinoids -16.40NegativeNegative ng/mL [facility] May 18:21:06 2019 Tramadol 37.00NegativeNegative n g/mL [facility] May 18 17:21:06 2019 Tricyclics 594.00PRESUMPTIVE POS ITIVEPRESUMPTIVE POSITIVE ng/mL [facility] May 18 17:21:36 2019 Ecstasy (MDMA) 79.00NegativeNegativ e ng/mL SatMay 18 17:21:07 2019 Buprenorphine 250Positive - Cons istentPOSITIVE> ng/mL Jie May 19 16:33:47 2019 Norbuprenorphine 500Positive - C onsistentPOSITIVE> ng/mL SatMay 19 16:33:47 2019 Naloxone 553.950Positive - Consi [...] Jun 02 08:20:16 2019 Imipramine 5.420NegativeNegative ng/mL SatJun 02 08:20:16 2019 Nortriptyline 0.360NegativeNegative ng/mL Jie Jun 02 08:20:16 2019 Amitriptyline 0.000NegativeNegative ng/mL SatJun [...] 19:41:16 2020 Buprenorphine 216.190Positive - ConsistentPOSITIVE ng/mL [facility] Jul 13 11:17:06 2020 Norbuprenorphine 476.890Positive [...] 13 10:13:02 EST 2020 Clozapine 0.020NegativeNegative ng/mL SatJul 13 10:13:02 2020 Fluphenazine 0.090NegativeNegative* ng/mL SatJul 13 10:13:03 2020 Haloperidol 0.040NegativeNegative * ng/mL SatJul 13 10:13:03 2020 Lurasidone 0.280NegativeNegative ng/mL [facility] Jul 13 10:13:03 2020 Olanzapine 0.140NegativeNegative ng/mL Satb 10:13:03 2020 Promethazine 0.020NegativeNegative* ng/mL [facility] Jul 13 10:13:03 2020 Quetiapine 50Positive - Consiste ntPOSITIVE> ng/mL [facility] Jul 13 10:13:03 2020 Risperidone 0.000NegativeNegative * ng/mL Satb 10:13:03 2020 Trifluoperazine 0.230Negative Negative ng/mL [facility] Jul 13 10:13:03 2020 Ziprasidone 0.000NegativeNegative * ng/mL [facility] Jul 13 10:13:03 2020 Bupropion 50Positive - Consisten tPOSITIVE> ng/mL [facility] Jul 13 10:13:03 2020 Hydroxybupropion 50Positive - Co nsistentPOSITIVE> ng/mL [facility] Jul 13 10:13:03 2020 Trazodone 50Positive - Consisten tPOSITIVE> ng/mL [facility] Jul 13 10:13:03 2020 mCPP 50Positive - Consistent *POSITIVE> ng/mL [facility] Jul 13 10:13:03 2020 Creatinine 221.8NORMALNORMAL [...] 17 07:57:44 ED2020 Ziprasidone 1.970NegativeNegative * ng/mL SatSep 17 07:57:44 ED2020 Bupropion 50Positive - Consisten [...] 12:55:00 EDT 2020 RENAL EPITH DNR /HPF Jei Dec 09 2 12:55:00 EDT 2020 BACTERIA [...] Dec 29 12:55 :00 EDT 2020 E [id number] null GLUCOSE 92 mg/dL SatJan 04 11 [...] cells/uL SatJan 04 11:34:00 EDT 2020 ABSOLUTE IA DNR cells/uL SatJan 04 11:34:00 EDT 2020 [...] W/ NON-REACTIVE Sat 11:34:00 EDT 2020 E [id number] null Medications Medication Directions Start Date End Date MAGNESIUM CITRATE 1.75 GM/30 ML SOLUTION 296 [...] Daily TRANSDERMAL SatDec 30 06:00:00 EDT 2020Jan 27 05:59 :00 EDT 2020 SUBOXONE (BUPRENORPHINE-NALOXONE) 4MG-1MG F ILM 1 Film BID: Twice a Day SUBLINGUAL SatDec 30 06:00:00 EDT 2020Jan 06 05:59:00 EDT 2020 BACTRIM DS (SULFAMETHOXAZOLE-T RIMETHOPRIM) 800MG-160MG TABLET 1 Tablet BID: Twice a Day ORAL SatDec 30 06:00:00 EDT 2020Jan 04 05:59:00 EDT 2020 STIMATE (DESMOPRESSIN ACETATE) 0.15 MG/1 ACT UATION SPRAY 1 Tyner BIDPRN: Twice A Day As Needed NASAL [...] SatDec 30:00:00 EDT 2020Jan 27 05:59 :00 ED2020 QUETIAPINE FUMARATE 25 MG TABLET 1 Tablet TID: Three Times a Day ORAL SatDec 30:00:00 ED2020Jan 27 05:59 :00 EDT 2020 SEROQUEL (QUETIAPINE FUMARATE) 100 MG TABLET 1 Tablet HS: At Bedtime ORAL (Takes with 25mg of Seroquel) SatDec 30 06:00:00 EDT 2020Jan 27 05:59:00 EDT 2020 CLONIDINE HCL 0.1 MG TABLET 1 Table t TID: Three Times a Day ORAL (MDD 1mg. See clonidine 0.2mg) SatDec 30 06:00:00 ED2020Jan 27 05:59:00 EDT 2020 HYDROXYZINE HCL 25 MG TABLET 1 Tabl et TID: Three Times a Day ORAL SatDec 30:00:00 EDT 2020Jan 27 05:59 :00 EDT 2020 SINGULAIR (MONTELUKAST SODIUM) 10 MG TABLET 1 Tablet Daily ORAL SatDec 30:00:00 ED2020Jan 27 05:59 :00 EDT 2020 VENLAFAXINE HCL 37.5 MG CAPSULE, EXTENDED RE LEASE 1 Capsule Daily ORAL SatDec 30:00:00 ED2020Jan 27 05:59 :00 EDT 2020 MIRALAX [...] 28 16:02:00 ED2020Jan 25 16:01:00 EDT 2020 COLACE (DOCUSATE SODIUM) 100 MG CAPSULE, LIQ UID FILLED 1 capsule Daily As Needed ORAL SatDec 28 16:02:00 EDT 2020Jan 25 16:01:00 EDT 2020 FIBER-LAX 625 MG TABLET 2 tablet IA N: As Needed ORAL (MDD 4 Tabs) [...] 25 16:05 :00 EDT 2020 PRAZOSIN HCL 5 MG CAPSULE 1 Capsule HS: At Bedtime ORAL SatDec 28 16:07:00 EDT 2020Jan 25 16:06 :00 EDT 2020 PRAZOSIN HCL 1 MG [...] EDT 2020Dec 30 09:38 :00 EDT 2020 cloNIDine HCl 0.1 MG TAB Take one ( 1) tablet by mouth three times a day, as needed SatDec 09:00:00 ED2020Feb 06:00:00 ED2020 Minipress 1 MG CAP Take one (1) cap robert by mouth daily SatDec 09:00:00 ED2020Feb 06:00 :00 ED2020 SEROquel 100 MG TAB Take one (1) ta blet by mouth at bedtime SatDec 09:00:00 2020Jan 07:00 :00 ED2020 Wellbutrin XL 150 MG T24 Take one ( 1) tablet by mouth daily SatDec 09:00:00 ED2020Feb 06:00 :00 ED2020 traZODone hydrochloride 150 MG TAB Take one (1) tablet by mouth at bedtime SatDec 09:00:00 ED2020Feb 06:00:00 2020 Topamax 25 MG CAP Take one (1) caps ule by mouth twice a day SatDec 09:00:00 2020Feb 06:00 :00 ED2020 Vistaril 25 MG CAP Take one (1) cap robert by mouth three times a day, as needed for anxiety SatDec 09:00:00 ED2020Feb 06:00:00 2020 SEROquel 25 MG TAB Take one (1) tab let by mouth three times a day SatDec 09:00:00 ED2020Feb 06:00 :00 ED2020 Effexor XR 37.5 MG CER Take one (1) capsule by mouth every morning SatDec 09:00:00 ED2020Jan 07:00 :00 ED2020 Minipress 5 MG CAP Take one (1) cap robert by mouth at bedtime SatDec 09:00:00 ED2020Feb 06 00:00 :00 ED[address] one (1) bran m under the tongue three times a day SatDec 09:00:00 ED2020Jan 07:00 :00 2020 SEROquel 100 MG TAB Take [...] as needed for anxiety SatAug 09 00:00:00 2020Oct 07 00:00:00 EDT 2020 SEROquel 25 [...] day, as needed SatMay 30 00:00:00 2019u Feb 00:00:00 2020 Minipress 1 MG CAP Take one (1) cap robert by mouth daily SatMay 30 00:00:00 2019u b 00:00 :00 2020 traZODone hydrochloride 100 MG TAB Take one (1) tablet by mouth at bedtime SatMay 30 00:00:00 2019Jun 13 00:00:00 2020 Wellbutrin XL 150 MG T24 Take one ( 1) tablet by mouth daily SatMay 30 00:00:00 2019 Feb 00:00 :00 2020 Vistaril 25 MG CAP Take one (1) cap robert by mouth three times a day, as needed for anxiety SatMay 30 00:00:00 2019 Feb 00:00:00 2020 SEROquel 25 MG TAB Take one (1) tab let by mouth three times a day SatMay 30 00:00:00 2019b 00:00 :00 2020 lamoTRIgine 25 MG TAB Take two (2) tablets by mouth at bedtime SatMay 30 00:00:00 2019u Feb 18 00:00 :00 2020 Buprenorphine-Naloxone 0.0 BRAN Aaron ce one (1) film under the tongue three times a day SatMay 17 00:00:00 2019May 30 00:00:00 2019 cloNIDine HCl 0.1 MG TAB Take one ( 1) tablet by mouth three times a day, as needed SatMay 17 00:00:00 2019May 30 00:00:00 2019 Minipress 1 MG CAP Take one (1) cap robert by mouth daily SatMay 17:00:2019May 30:00 :00 2019 traZODone hydrochloride 100 MG TAB Take one (1) tablet by mouth at bedtime SatMay 17:00:00 2019May 30:00:00 EST 2019 Wellbutrin XL 150 MG T24 Take one ( 1) tablet by mouth daily SatMay 17:00:2019May 30:00 :2019 Vistaril 25 MG CAP Take [...] 2019Apr 25 00:00:00 2019 DDAVP 0.0 SPR Tyner two (2) sprays in nostril(s) daily SatApr [...] 12 00:00:00 2019Sep 09 00:00 :00 ED2020 Ibuprofen 600 MG TAB Take one (1) t ablet by mouth twice a day, as needed for pain SatApr 12:00:2019Sep 09 00:00:00 2020 Anoro Ellipta 0.0 POW [...] ( 1) tablet by mouth daily SatApr 12:00:00 2019May 11 00:00 :2019 Topamax 25 MG CAP Take one (1) caps ule by mouth twice a day SatApr 12 00:00:00 2019Jun 10 00:00 :00 2020 Narcan 0.0 SPR Tyner one (1) spray in nostril(s) daily SatApr 12 00:00:00 2019Sep 09 00:00 :00 EDT 2020 Minipress 5 MG CAP Take one (1) cap robert by mouth at bedtime SatApr 12:00:00 2019May 17 00:00 :00 [address] one (1) bran m under the tongue daily SatApr 12 00:00:00 2019Sep 09 00:00 :00 EDT [address] one (1) barn m under the tongue daily SatApr 12 [...] SatApr 07 00:00:00 ED2019Sep 09 00:00 :00 EDT [address] one (1) bran m under the tongue daily SatApr 05 00:00:00 ED2019Apr 07 00:00 :00 ED2019 Singulair 10 MG TAB Take one (1) [...] 03 00:00 :00 2019 Narcan 0.0 SPR Tyner one (1) spray in nostril(s) daily SatNovember [...] daily SatNovember 03 00:00:00 2019Dec 02 00:00 :2019 Topamax 25 MG CAP Take one (1) caps ule by mouth twice a day SatNovember 03 00:00:00 2019 Sat Jan 01 00:00 :00 2019 traZODone hydrochloride 50 MG TAB T deb one (1) tablet by mouth at bedtime SatNovember 03 00:00:00 2019 Jie Eugenio 00:00:00 [address] one (1) tabl et under the tongue twice a day SatNovember 03 00:00:00 2019Sep 09 00:00 :00 [address] one (1) tabl et under the tongue twice a day SatNovember 03 00:00:00 2019Sep 09:00 :00 2020 traZODone hydrochloride 100 MG TAB Take one (1) tablet by mouth at bedtime SatNovember 03 00:00:00 2019Sep 09 00:00:00 2020 DDAVP 0.0 SPR Tyner two (2) sprays in nostril(s) daily SatApr 12 00:00:00 2019Sep 09 00:00 :00 2020 rOPINIRole HCl 0.25 MG TAB Take one (1) tablet by mouth three times a day SatApr 12:00:00 2019Sep 09:00 :00 2020 Esomeprazole Magnesium 20 MG ECC Ta ke one (1) capsule by mouth daily SatApr 12:00:00 2019Sep 09:00 :00 2020 Ibuprofen 600 MG TAB Take one (1) t ablet by mouth twice a day, as needed for pain SatApr 12:00:00 2019Sep 09:00:00 2020 Anoro Ellipta 0.0 POW Inhale one ( 1) spray into the lungs daily SatApr 12:00:00 2019Sep 09:00 :00 2020 Albuterol Sulfate HFA 0.0 ANGELICA Inha le two (2) puffs into the lungs twice a day, as needed SatApr 12:00:00 2019Sep 09 00:00:00 2020 Singulair 10 MG TAB Take one (1) ta blet by mouth daily SatApr 12 00:00:00 EST 2019Sep 09 00:00 :00 2020 Narcan 0.0 SPR Tyner one (1) spray in nostril(s) daily SatApr [...] 00:00:00 2019October 12 00:00:00 2019 Buprenorphine-Naloxone 0.0 BARN Aaron ce [...] SatAug 18 00:00:00 2019Sep 15 00:00 :00 ED[address] one (1) bran m under the tongue twice a day SatAug 18 00:00:00 2019Aug 25 00:00 :00 T 2019 Singulair 10 MG TAB Take one [...] 05 00:00:00 2019Sep 02 00:00 :00 ED2019 lamoTRIgine 25 MG TAB Take one (1) [...] m under the tongue twice a day Wed Feb 26 00:00:00 EST 2020 Tue Mar 10 00:00 :00 EDT 2020 METRONIDAZOLE 500 MG [...] RELEASE, 24 HR Tue Feb 11 08:00:00 2020 Tue Mar 10 08:59:00 EDT 2020 QUETIAPINE FUMARATE 50 MG TABLET, EXTENDED RELEASE Tue Feb 11 15:37:00 EST 2020 Tue Mar 10 16:36:00 EDT 2020 QUETIAPINE FUMARATE 50 MG TABLET, EXTENDED RELEASE Tue Feb 11 21:00:00 2020 Tue Mar 10 21:59:00 EDT 2020 LAMOTRIGINE 25 MG TABLET Wed Feb 12 08:00:00 EST 2020 Wed Mar 11 08:59:00 EDT 2020 PRAZOSIN HCL 2 MG CAPSULE Tue Feb 11 21:00:00 2020 Tue Mar 10 21:59:00 EDT 2020 [...] MG TABLET Mon Feb 10 23:24:00 EST 2019Aug 17 00:23:00 EDT 2020 ORAJEL MOUTH SORE MEDICINE (BE NZALKONIUM CHLORIDE-BENZOCAINE/ZINC CHLORIDE) 0.02%-20%-0.1% GEL/JELLY Mon Feb 1 0 23:24:00 2019 10 00:23:00 EDT 2020 MYLANTA (ALUMINUM HYDROXIDE-MA GNESIUM HYDROXIDE-SIMETHICONE) 200MG/5 ML-200MG/5 ML-20MG/5 ML SUSPENSION Mon Feb 10 23:24:00 2019 10 00:23:00 EDT 2019 MULTIVITAMIN TABLET Mon Feb 10 ::00 2019Aug 17 00:23:00 EDT 2019 MELATONIN 5 MG CAPSULE Mon Feb 10 :24:00 2019Aug 17 00:23:00 EDT 2020 ICY HOT (MENTHOL-METHYL SALICYLATE) 10%-30% CREAM Sat Feb 10 :24:00 2019Aug 17 00:23:00 EDT 2020 FIBER-LAX 625 MG TABLET Mon Feb 10 :24:00 2019Aug 17 00:23:00 EDT 2020 CLARITIN (LORATADINE) 10 MG TABLET Mon Feb 10 :24:00 2019Aug 17 00:23:00 EDT 2020 BENADRYL ALLERGY (DIPHENHYDRAM INE HYDROCHLORIDE) 25 MG TABLET Mon Feb 10 :24:00 2019 e Aug 17 00:23:00 EDT 2020 TUMS (CALCIUM CARBONATE) 500 MG TABLET, CHEWABLE Mon Feb 10 23:24:00 2019Aug 17 00:23:00 EDT 2020 GAS-X (SIMETHICONE) 80 MG TABLET, CHEWABLE Mon Feb 10 :24:00 2019 10 00:23:00 EDT 2020 ACETAMINOPHEN (TYLENOL) 500 MG TABLET Mon Feb 10 :24:00 2019 10 00:23:00 EDT 2020 NICOTINE POLACRILEX 4 MG LOZENGE/BERTHA Mon Feb 10 23:24:00 EST 2019 Mon Feb 24 23:23:00 EST 2020 MONTELUKAST SODIUM 10 MG TABLET Mon Feb 10 23:24:00 2019Aug 17 00:23:00 EDT 2019 ADVAIR DISKUS 250/50 (FLUTICAS ONE PROPIONATE-SALMETEROL XINAFOATE) 0.25MG/1 ACTUATION-0.05MG/1 ACTUATION DISK Mo n Jul 20:24:00 2019Aug 17 00:23:00 EDT 2019 HYDROXYZINE HCL 25 MG TABLET SatJul 20::2019 Sat Feb 15 ::00 EST 2019 ZOFRAN (ONDANSETRON) 4 MG TABLET, DISINTEGRATING SatJul 20:24:00 2019 Sat Feb 15 ::00 EST 2019 CATAPRES (CLONIDINE HYDROCHLORIDE) 0.1 MG TABLET SatJul 20:24:00 2019b 15 ::00 EST 2019 XOPENEX (LEVALBUTEROL HYDROCHLORIDE) 1.25 MG /3 ML SOLUTION SatJul 20:24:00 2019Aug 17 00:23 :00 EDT 2019 TRIPLE ANTIBIOTIC OINTMENT 40 0UNITS/1GM-3.5MG/1GM-5000UNITS/1GM OINTMENT SatJul 20:24:00 2019Aug 17 00:23:00 EDT 2019 PEPTO-BISMOL (BISMUTH SUBSALICYLATE) 262 MG/ 15 ML SUSPENSION SatJul 20:24:00 2019Aug 17 00:23 :00 EDT 2019 MILK OF MAGNESIA 400 MG/5 ML SOLUTION SatJul 20:24:2019Aug 17 00:23:00 EDT 2019 GUAIFENESIN 600 MG TABLET, EXTENDED RELEASE SatJul 20:24:00 2019Aug 17 00:23:00 EDT 2019 COLACE (DOCUSATE SODIUM) 100 MG CAPSULE, LIQ UID FILLED SatJul 20:24:00 2019Aug 17 00:23 :00 EDT 2019 BENADRYL ALLERGY (DIPHENHYDRAM INE HYDROCHLORIDE) 25 MG TABLET SatJul 20:24:00 2019 e Aug 17 00:23:00 EDT 2019 EUCERIN DAILY PROTECTION (LOTI ON, MULTI INGREDIENT) 2%-7.5%-4.5%-2.4%-4.8% LOTION Mon Feb 10 23:2 4:00 EST 2019 10 00:23:00 EDT 2020 EUCERIN DAILY PROTECTION (LOTI ON, MULTI INGREDIENT) 2%-7.5%-4.5%-2.4%-4.8% LOTION Sun Feb 09 10:0 5:00 EST 2019 Sun Aug 08 11:04:00 EDT 2020 TRAZODONE HYDROCHLORIDE 50 MG TABLET Sun Feb 10:03:00 EST 2019 Sun Aug 15 11:02:00 EDT 2019 ACETAMINOPHEN (TYLENOL) 500 MG TABLET Sun Feb 04:55:00 EST 2019 Sun Aug 15 05:54:00 EDT 2020 GAS-X (SIMETHICONE) 80 MG TABLET, CHEWABLE Sat Feb 08 15:55:00 EST 2019Aug 14 15:54:00 EST 2019 TUMS (CALCIUM CARBONATE) 500 MG TABLET, CHEWABLE Sat Feb 08 15:55:00 EST 2019 Sat Aug 14 15:54:00 EST 2020 BENADRYL ALLERGY (DIPHENHYDRAM INE HYDROCHLORIDE) 25 MG TABLET Sat Feb 08 15:55:00 EST 2019 Aug 14 15:54:00 EST 2020 BENADRYL ALLERGY (DIPHENHYDRAM INE HYDROCHLORIDE) 25 MG TABLET Sat Feb 08 15:55:00 EST 2020 t Aug 14 15:54:00 EST 2020 CLARITIN (LORATADINE) 10 MG TABLET Sat Feb 08 15:55:00 EST 2019 Sat Aug 14 15:54:00 EST 2020 COLACE (DOCUSATE SODIUM) 100 MG CAPSULE, LIQ UID FILLED Sat Feb 08 15:55:00 EST 2019Aug 14 15:54 :00 EST 2020 FIBER-LAX 625 MG TABLET Sat Feb 08 15:55:00 EST 2020 Sat Aug 14 15:54:00 EST 2020 GUAIFENESIN 600 MG TABLET, EXTENDED RELEASE Sat Feb 08 15:55:00 EST 2020 Sat Aug 14 15:54:00 EST 2020 ICY HOT (MENTHOL-METHYL SALICYLATE) 10%-30% CREAM Sat Feb 08 15:55:00 EST 2019 Sat Aug 14 15:54:00 EST 2020 MELATONIN 5 MG CAPSULE Sat Feb 08 15:55:00 EST 2020 Sat Aug 14 15:54:00 EST 2020 MILK OF MAGNESIA 400 MG/5 ML SOLUTION Sat Feb 08 15:55:00 EST 2019 Sat Mar 07 15:54:00 EST 2020 MULTIVITAMIN TABLET Sat Feb 08 15:55:00 EST 2019Aug 14 15:54:00 2019 MYLANTA (ALUMINUM HYDROXIDE-MA GNESIUM HYDROXIDE-SIMETHICONE) 200MG/5 ML-200MG/5 ML-20MG/5 ML SUSPENSION Sat Feb 08 15:55:00 EST 2019Aug 14 15:54:00 EST 2019 ORAJEL MOUTH SORE MEDICINE (BE NZALKONIUM CHLORIDE-BENZOCAINE/ZINC CHLORIDE) 0.02%-20%-0.1% GEL/JELLY Sat Feb 0 8 15:55:00 EST 2019Aug 14 15:54:00 2019 PEPTO-BISMOL (BISMUTH SUBSALICYLATE) 262 MG/ 15 ML SUSPENSION Sat Feb 08 15:55:00 2019Aug 14 15:54 :00 2019 PEPCID (FAMOTIDINE) 40 MG TABLET Sat Feb 08 15:55:00 2019Aug 14 15:54:00 2019 TRIPLE ANTIBIOTIC OINTMENT 40 0UNITS/1GM-3.5MG/1GM-5000UNITS/1GM OINTMENT Sat Feb 08 15:55:00 EST 2019Aug 14 15:54:00 2019 XOPENEX (LEVALBUTEROL HYDROCHLORIDE) 1.25 MG /3 ML SOLUTION Sat Feb 08 15:55:00 2019Aug 14 15:54 :00 EST 2019 NARCAN (NALOXONE HCL) 4 MG/0.1 ML SPRAY Sat Feb 08 15:55:00 2019 Sat Feb 22 15:54:00 2020 CATAPRES (CLONIDINE HYDROCHLORIDE) 0.1 MG TABLET Sat Feb 08 15:55:00 2019 Jie Feb 13 15:54:00 EST 2020 ZOFRAN (ONDANSETRON) 4 MG TABLET, DISINTEGRATING Sat Feb 08 15:55:00 2019u Feb 13 15:54:00 2020 HYDROXYZINE HCL 25 MG TABLET Sat Feb 08 15:55:00 2019u Feb 13 15:54:00 EST 2020 ADVAIR DISKUS 250/50 (FLUTICAS ONE PROPIONATE-SALMETEROL XINAFOATE) 0.25MG/1 ACTUATION-0.05MG/1 ACTUATION DISK Sa t Jul 08 15:55:00 EST 2020 Sat Mar 07 [...] MG/1 ACTUATION SUSPENSION Wed Feb 05 08:00:00 EST 2020 We d Mar 07:59:00 EST 2020 ADVAIR DISKUS 250/50 (FLUTICAS ONE PROPIONATE-SALMETEROL XINAFOATE) 0.25MG/1 ACTUATION-0.05MG/1 ACTUATION DISK We d Feb 05 08:00:00 EST 2020 Wed Mar 07:59:00 EST 2020 HYDROXYZINE HCL 25 MG TABLET Wed Feb 05 12:24:00 EST 2020 Mon Feb 10 12:23:00 EST 2020 ZOFRAN (ONDANSETRON) 4 MG TABLET, DISINTEGRATING SatJul 15 12:24:2019 Feb 10 12::00 EST 2019 CATAPRES (CLONIDINE HYDROCHLORIDE) 0.1 MG TABLET SatJul 15 12:24:2019b 10 12:: EST 2019 NARCAN (NALOXONE HCL) 4 MG/0.1 ML SPRAY SatJul 15 12::2019 Wed Feb 19 12:: EST 2019 XOPENEX (LEVALBUTEROL HYDROCHLORIDE) 1.25 MG /3 ML SOLUTION SatJul 15 12:24:00 2019Aug 11 12: :00 EST 2019 TRIPLE ANTIBIOTIC OINTMENT 40 0UNITS/1GM-3.5MG/1GM-5000UNITS/1GM OINTMENT SatJul 15 12::2019Aug 11 12::00 EST 2019 PEPCID (FAMOTIDINE) 40 MG TABLET SatJul 15 12::2019Aug 11 12:23:00 EST 2019 PEPTO-BISMOL (BISMUTH SUBSALICYLATE) [...] MG CAPSULE SatJul 15 12:24:2019Aug 11 12:23:00 EST 2019 IMODIUM A-D (LOPERAMIDE HYDROC HLORIDE) 2 MG CAPSULE, LIQUID FILLED SatJul 15 12:24:2019Aug 11 12:23:00 EST 2019 IBUPROFEN 200 MG [...] 15 12:24:00 2019Aug 11 12:23:00 EST 2020 ACETAMINOPHEN 500 [...] 26 08:04:00 EST 2019Jul 01 08:03:00 EST 2020 CATAPRES (CLONIDINE HYDROCHLORIDE) 0.1 MG TABLET SatJun 26 08:04:00 EST 2019Jul 01 08:03:00 EST 2020 NARCAN (NALOXONE HCL) 4 MG/0.1 ML SPRAY SatJun 26 08:04:00 EST 2019 Fri Jul 10 08:03:00 2019 XOPENEX (LEVALBUTEROL HYDROCHLORIDE) 1.25 MG /3 ML SOLUTION SatJun 26 08:04:00 EST 2020 Fri Feb 14 08:03 :00 EST 2020 TRIPLE ANTIBIOTIC OINTMENT 40 0UNITS/1GM-3.5MG/1GM-5000UNITS/1GM OINTMENT SatJun 26 08:04:00 2019 Fr i Feb 14 08:03:00 EST 2020 PEPCID (FAMOTIDINE) 40 MG TABLET SatJun 26 08:04:00 2019 Fri Feb 14 08:03:00 2020 PEPTO-BISMOL (BISMUTH [...] 2020 Fri Feb 14 08:03:00 EST 2019 MILK OF MAGNESIA 400 MG/5 ML SOLUTION SatJun 26 08:04:00 2019 Fri Feb 14 08:03:00 EST 2020 MELATONIN 5 MG CAPSULE SatJun 26 08:04:00 2020 Fri Feb 14 08:03:00 EST 2020 IMODIUM A-D (LOPERAMIDE HYDROC HLORIDE) 2 MG CAPSULE, LIQUID FILLED SatJun 26 08:04:00 2019 Fr i Feb 14 08:03:00 EST 2020 IBUPROFEN 200 MG TABLET SatJun 26 08:04:00 EST 2020 Fri Feb 14 08:03:00 EST 2020 ICY HOT (MENTHOL-METHYL SALICYLATE) 10%-30% CREAM SatJun 26 08:04:00 EST 2019 Fri Feb [...] EST 2020 VALIUM (DIAZEPAM) 5 MG TABLET SatJun 28 08:00:00 EST 2019Jun 29 07:59:00 EST 2019 VALIUM (DIAZEPAM) 5 MG TABLET SatJun 27 08:00:00 EST 2019Jun 28 07:59:00 EST 2019 VALIUM (DIAZEPAM) 5 MG TABLET Sat Jun 27 17:31:00 EST 2019Jun 28 17:30:00 EST 2019 VALIUM (DIAZEPAM) 5 MG TABLET SatJun 26 17:31:00 EST 2019 Sat Jun 27 17:30:00 EST 2019 VALIUM (DIAZEPAM) 5 MG TABLET Fri Jun 26 17:31:00 EST 2019 Sat Jun 27 17:30:00 EST 2019 VALIUM (DIAZEPAM) 5 MG TABLET Jie Jun 25 08:00:00 EST 2019 Fri Jun 26 07:59:00 EST 2019 VALIUM (DIAZEPAM) 5 MG TABLET Fri Jun 26 08:00:00 EST 2019Jun 29 07:59:00 EST 2019 VALIUM (DIAZEPAM) 5 MG TABLET Jie Luc 16 08:00:00 2019Jun 26 07:59:00 2019 SUBOXONE (BUPRENORPHINE-NALOXONE) 4MG-1MG FILM SatJun 25 08:00:00 2019Jul 02 07:59:00 2019 SUBOXONE (BUPRENORPHINE-NALOXONE) 4MG-1MG FILM SatJun 25 08:00:00 2019Jun 26 07:59:00 2019 ADVAIR DISKUS 250/50 (FLUTICAS ONE PROPIONATE-SALMETEROL XINAFOATE) 0.25MG/1 ACTUATION-0.05MG/1 ACTUATION DISK Jun 25 08:00:00 2019 Fe 07:59:00 2019 PROAIR HFA (ALBUTEROL SULFATE) 0.09 MG/1 ACTUATION SUSPENSION SatJun 25 08:00:00 2019 u Fe 07:59:00 2019 NICOTINE 14 MG/24 HR PATCH, EXTENDED RELEASE SatJun 25 08:00:00 2019Jul 23 07:59:00 2019 Gabapentin 300 MG CAP Take two (2) capsules by mouth three times a day SatDec 22 00:00:00 2018 [facility] Sep 00:00 :00 2018 Prazosin HCl 1 MG CAP Take one (1) capsule by mouth at bedtime SatDec 22 00:00:00 2018 [facility] Sep 00:00 :00 2018 traZODone hydrochloride 100 MG TAB Take one (1) or two (2) tablets by mouth at bedtime, as needed. SatDec 22 00:00:00 2018 [facility] Sep 00:00:00 2018 Topamax 25 MG CAP Take one (1) caps ule by mouth twice a day SatDec 22 00:00:00 2018 [facility] Sep 00:00 :00 2018 Prazosin HCl 5 MG CAP Take one (1) capsule by mouth at bedtime SatDec 22 00:00:00 2018 [facility] Sep 00:00 :00 2018 hydrOXYzine Pamoate 50 MG CAP Take one (1) capsule by mouth twice a day, as needed SatDec 22 00:00:00 2018 [facility] Sep 00:00:00 2018 hydrOXYzine Pamoate 50 [...] 24 00:00:00 ED2018October 23 00:00 :00 ED2018 Gabapentin 300 MG CAP Take two (2) capsules by mouth four times a day SatSep 24 00:00:00 ED2018October 23 00:00 :00 ED2018 Topamax 25 MG CAP Take one (1) caps ule by mouth twice a day SatSep 24 00:00:00 2018October 23 00:00 :00 ED2018 hydrOXYzine Pamoate 50 [...] TABLET SatSep 12 12:04:00 ED2018October 10 12:03:00 EDT 2018 BUPROPION HCL 150 [...] MG TABLET SatSep 08 09:00:00 EDT 2018 Sat Sep 06 08:59:00 EDT 2018 SUBOXONE (BUPRENORPHINE-NALOXONE) 12MG-3MG FILM SatSep 08 09:00:00 EDT 2018 15 08:59:00 EDT 2018 PRAZOSIN HCL 1 MG CAPSULE SatSep 08 12:12:00 EDT 2018Oct 06 12:11:00 EDT 2019 DICYCLOMINE HCL 20 MG TABLET SatSep 07 15:09:00 EDT 2018Oct 05 15:08:00 EDT 2018 MIRALAX (POLYETHYLENE GLYCOL 3 350) 17 GM/1 DOSE POWDER FOR SOLUTION SatSep 06 09:00:00 EDT 2018 u Sep 04 08:59:00 EDT 2018 MIRALAX [...] 27 17:41:00 EDT 2019 We d Sep 17 17:40:00 EDT 2019 TUMS (CALCIUM CARBONATE) 500 MG TABLET, CHEWABLE SatAug 27 17:41:00 EDT 2018Sep 24 17:40:00 EDT 2019 GAS-X (SIMETHICONE) 80 MG TABLET, CHEWABLE SatAug 27 17:41:00 EDT 2018Sep 24 17:40:00 EDT 2019 ACETAMINOPHEN 500 MG CAPSULE SatAug 27 17:41:00 EDT 2018Sep 24 17:40:00 EDT [address] one and one half (1.5) films [...] Active Concerns * Opioid abuse * Code: [id number] * Start Date: SatJun 10 11:00:00 EST [...] * Alcohol use disorder, severe * Code: [id number] * Start Date: SatJun 24 07:00:00 2019 * Text: * Severe nicotine withdrawal * Code: 92738372 * Start Date: SatJun 24 07:00:00 2019 * Text: * Stimulant use disorder * Code: 711058925 * Start Date: SatJun 24 07:00:00 2019 * Text: * Synthetic cannabinoid dependence * Code: 515199620 * Start Date: SatJul 15 07:00:00 2019 * Text: * Opioid use disorder, severe, dependence * Code: 16484613 * Start Date: SatJul 15 07:00:00 2019 * Text: * Current every day smoker * Code: [id number] * Start Date: SatJul 15 07:00:00 EST 2019 * Text: * Bipolar disorder with psychotic features * Code: 40820111 * Start Date: SatSep 29 08:00:00 EDT [...] 09:45: 00 EST 2020 Temperature 98.0 [DEGF] [facility] Feb 07 12:39:00 EDT 2018 Temperature 36.7 SUSANA [facility] Jan 10 12:39:00 EDT 2018 Heart Rate 69 /MIN [facility] Feb 07 12:39:00 EDT 2018 Respiration 14 /MIN [facility] Jan 10 12:39:00 EDT 2018 SpO2 98 % [facility] Feb 07 12:39 :00 EDT 2018 Systolic 100 MM[HG] [facility] Feb 07 1 2:39:00 EDT 2018 Diastolic 59 MM[HG] [facility] Feb 07 12:39:00 EDT 2018
--- OUTSIDE RECORDS SUMMARY | 2021-03-23 20:20 | CCD ---
Author Author Jasmin Farley Organization [facility] Address [address] [place] [address] Care Team Providers Care Market President Name Role Phone Ambreen Farley Unavailable JohannykevinDahiana Unavailable Min Hernandez Unavailable Monika White Unavailable Functional Status No Results Mental Status No Results Assessments SatJan 04 20:50:06 EDT 2020: No Assessment Information Health Concerns No Known Health Concerns Allergies No Known Allergy Information Encounters Program Name Primary Diagnosis Admission Date/Time Discharge Date/Time Intensive Support SatJun 09 10:00:00 EST 2019 [...] 16:10:00 EDT 2020November 06 12:00:00 EDT 2020 Immunizations No Known Immunizations [...] most recent episode (or current) unspecified* Code: [id number] * Start Date: SatApr 01 09:00:00 EDT 2019 * Text: * Mental Health and Stress Management* Code: * Start Date: SatNovember 02 00:00:00 EDT 2020 * Text: * Mental Health and Stress Management* Code: * Start Date: SatDec 21 00:00:00 EDT 2020 * Text: * Posttraumatic stress disorder* Code: 41909321 * Start Date: SatApr 01 09:30:00 EDT [...]
--- OUTSIDE RECORDS SUMMARY | 2021-03-23 20:20 | CCD ---
Author DENISHA Alarcon [facility] Address [address] [place] [address] Care Team Providers Care Bottom Turning Lathe Turner Name Role Phone Yaron Lobato AttendingPractitioner1 Peyton [...] Primary Diagnosis Admission Date/ Time Discharge Date/Time [facility] SatJan 12 09:36:00 EDT 2017 [facility] Heroin use disorder, moderate, dependence SatApr 04 10:25:00 EDT 2020 [facility] SatJan 09 10:42:00 EDT 2017 [facility] SatSep 24 12:11:00 EDT 2019 [facility] Alcohol use disorder, severe SatJun 24 14:16:00 EST 2019Jun 27 13:25:00 EST 2019 [facility] Synthetic cannabinoid dependence SatJul 15 10:25:00 EST 2019Jul 18 14:14:00 EST 2019 [facility] Jie Jan 10 11:41:00 EDT 2017 [facility] Sat 02:02:00 EST 2020 [facility] Synthetic cannabinoid dependence Sat Jul 18 14:16:00 EST 2019Jul 20 11:58:00 EST 2020 [facility] SatAug 19 09:30:00 EDT 2019 [facility] SatOct 01 08:57:00 EDT 2019Nov 19 13:39:00 EDT 2019 [facility] SatJun 13 13:54:00 EST 2020Jun 27 17:13:00 EST 2020 [facility] SatSep 24 13:11:00 EDT 2018Mar 02 11:08:00 EDT 2019 [facility] SatJan 08 10:39:00 EDT 2017 [facility] Heroin use disorder, severe, on maintenance therapy, dependence SatAug 20 09:30:00 EDT 2019October 14 11:29:00 EDT 2019 [facility] Polysubstance abuse SatJun 24 09:10:00 EST 2019Aug 03 08:17:00 EST 2019 [facility] SatOctober 08 11:40:00 EDT 2016 [facility] Synthetic davey abinoid dependence SatDec 28 10:30:00 EDT 2020 [facility] SatAug 27 14:15:00 EDT 2019 [facility] SatJul 10 16:04:00 EST 2018 [facility] Severe opioid use disorder SatJul 20 11:59:00 EST 2019Aug 01 17:29:00 EST 2019 [facility] SatSep 11 09:41:00 EDT 2019 [facility] Drug abuse counseling and surveillance of drug abuser SatAug 03 08:19:00 EST 2019Feb 15 08:55:00 EDT 2020 Immunizations No [...] EDT 2019 UREA NITROGEN (BUN) DNR mg/dL M Jan 19 15:21:00 EDT 2019 CREATININE DNR mg/dL SatJan 19 15:21:00 EDT 2019 eGFR NON-AFR. GABONESE DNR mL/min/1.73m2 SatJan 19 15:21:00 EDT 2019 [...] :21:00 EDT 2019 PROTEIN, TOTAL DNR g/dL [facility] 15:21:00 EDT 2019 ALBUMIN DNR g/dL SatJan [...] 12 15:21:00 EDT 2019 NEUTROPHILS DNR % [facility] Jan 08 2 15:21:00 EDT 2019 BAND NEUTROPHILS DNR % [facility] Jan 12 15:21:00 EDT 2019 METAMYELOCYTES DNR % Mon Au g 12 15:21:00 EDT 2019 MYELOCYTES DNR % [facility] Jan 12 15:21:00 EDT 2019 PROMYELOCYTES DNR % [facility] Jan 19 15:21:00 EDT 2019 LYMPHOCYTES DNR % [facility] Jan 08 2 15:21:00 EDT 2019 REACTIVE LYMPHOCYTES DNR % [facility] Jan 19 15:21:00 EDT 2019 MONOCYTES DNR % [facility] Jan 19 15:21:00 EDT 2019 EOSINOPHILS DNR % [facility] Jan 08 2 15:21:00 EDT 2019 BASOPHILS DNR % [facility] Jan 19 15:21:00 EDT 2019 BLASTS DNR % [facility] Jan 19 15: 21:00 EDT 2019 NUCLEATED RBC DNR /100 WBC [facility] A ug 12 15:21:00 EDT 2019 COMMENT(S) DNR [facility] Jan 19 15:21:00 EDT 2019 HCG, QL, URINE NEGATIVE [facility] g 12 15:21:00 EDT 2019 BUPRENORPHINE 530 [...] NEGATIVE Sun Jun 28 13 :42:00 EST 2019 OCCULT BLOOD TRACE Sun Jun 28 13:42:00 [...] EST 2020 TRIPLE PHOSPHATE CRYSTALS DNR /HPF Jei Feb 06 07:16:00 EST 2020 URIC ACID [...] mg/dL Sat Feb 11:33:00 2020 eGFR NON-AFR. GABONESE 101 mL/min/1.73m2 Sat Feb 11:33:00 2020 eGFR [...] :33:00 2020 PROTEIN, TOTAL 6.4 g/dL Sat b 11:33:00 2020 ALBUMIN 3.6 g/dL Sat Feb 11 :33:00 2020 GLOBULIN 2.8 g/dL (calc) Satb 11:33:00 2020 ALBUMIN/GLOBULIN RATIO 1.3 (calc) Satb 11:33:00 2020 BILIRUBIN, TOTAL 0.3 mg/dL Sat Feb 11:33:00 2020 ALKALINE PHOSPHATASE 71 U/L Satb [...] Satb 11:33 :00 2020 RDW 13.6 % Sat Feb 11:33: 00 EST 2020 PLATELET COUNT 284 Thousand/uL F ri Feb 11:33:00 EST 2020 MPV 11.4 fL [...] 2020 METAMYELOCYTES DNR % Sat Fe b 11:33:00 EST 2020 MYELOCYTES DNR % Sat Feb 11:33:00 EST 2020 PROMYELOCYTES DNR % Sat Feb 11:33:00 EST 2020 LYMPHOCYTES 29.8 % Fri Feb 2 1 11:33:00 EST 2020 REACTIVE LYMPHOCYTES DNR % Sat Feb 21 11:33:00 EST 2020 MONOCYTES 5.1 % Sat Feb 11:33:00 EST 2020 EOSINOPHILS 1.1 % [...] RNA, QUANTITATIVE REAL TIME PCR Sat Feb 08:31:00 EST 2020 HCV RNA, QUANTITATIVE REAL [...] e Feb 11 05:49:00 EST 2020 COMMENT e Feb 11 05 :49:00 EST 2020 HCV [...] 10 23:32:00 2019 ALBUMIN, URINE 92.9 mg/dL [facility] 23:32:00 2019 ALBUMIN/CREATININE RATIO, RANDOM URINE 893 mcg/mg creat SatAug 10 23:32:00 2019 CREATININE 0.71 mg/dL SatAug 10 23:32:00 2019 eGFR NON-AFR. GABONESE 113 mL/min/1.73m2 SatAug 10 23:32:00 2019 eGFR 132 mL/min/1.73m2 SatAug 10 23:32:00 2019 HEMOGLOBIN 13.2 g/dL SatAug 10 23:32:00 2019 PARATHYROID HORMONE, INTACT 34 pg/mL SatAug 10:32:00 2019 CALCIUM 8.8 mg/dL SatAug 10 23 :32:00 2019 PHOSPHATE ( PHOSPHORUS) 4.3 mg/dL SatAug 10 23:32:00 2019 VITAMIN D,25-OH,TOTAL,IA 19 ng/mL SatAug 10 23:32:00 2019 PROTEIN, TOTAL 6.8 g/dL 23:32:00 2019 ALBUMIN 3.7 g/dL SatAug 10 23 :32:00 2019 GLOBULIN 3.1 g/dL (calc) SatAug 10:32:00 2019 ALBUMIN/GLOBULIN RATIO 1.2 (calc) SatAug 10 23:32:00 EST 2020 BILIRUBIN, TOTAL 0.2 mg/dL [...] 14:18:00 EST 2020 HEPATITIS A IGM BORDERLINE e Aug 10 23:32:00 EST 2020 HEPATITIS A IGM [...] 2020 Norhydrocodone DNR ng/mL Sat 12:48:00 EST 2020 Confirmation Testing Performed at: [...] 14:55:00 EDT 2019 Alphahydroxymidazolam DNR ng/mL Sat Mar 15 14:55:00 EDT 2019 Alphahydroxytriazolam DNR ng/mL Sun Mar 15 14:55:00 EDT 2020 Aminoclonazepam DNR ng/mL Sun M ar 15 14:55:00 EDT 2020 Hydroxyethylflurazepam DNR ng/mL Sat 15 14:55:00 EDT 2020 Lorazepam DNR ng/mL [...] 11:27:00 EDT 2019 Morphine DNR ng/mL Jie Mar 26 1 1:27:00 EDT 2020 Norhydrocodone DNR ng/mL Jie Ma r 26 11:27:00 EDT 2020 Confirmation Testing Performed at: DNR Jie Sep 02 11:27:00 EDT 2019 COMMENT Jie Sep 02 11 :27:00 EDT 2020 Buprenorphine Jie Sep 02 11:27:00 EDT 2019 [...] DNR ng/mL Sat pr 03 10:48:00 EDT 2020 Confirmation Testing Performed at: DNR [...] 1:48:00 EDT 2019 Norhydrocodone DNR ng/mL Sat r 10 01:48:00 [...] 14:39:04 EDT 2020 Desmethyldoxepin 1.090Negative *Negative ng/mL [facility] October 16 14:39:05 EDT 2020 Doxepin 8.060NegativeNegative ng /mL [facility] October 16 14:39:05 EDT 2019 Imipramine 6.300NegativeNegative ng/mL [facility] October 16 14:39:05 EDT 2019 Nortriptyline 5.360NegativeNegative ng/mL [facility] October 16 14:39:05 EDT 2019 Amitriptyline 11.540NegativeNegativ e ng/mL [facility] October 16 14:39:05 EDT 2019 Clomipramine 8.540NegativeNegative* ng/mL [facility] October 16 14:39:05 EDT 2019 Desipramine 5.480NegativeNegative * ng/mL [facility] October 16 14:39:06 EDT 2020 Creatinine 204.1NORMALNORMAL mg/ dL [facility] Feb 03 14:38:10 EDT 2020 pH 6.3NORMALNORMAL Jie Feb 03 14:38:32 EDT 2020 Oxidants -17.00NegativeNegative mcg/mL [facility] Feb 03 14:36:48 EDT 2019 Validity Result VALIDVALIDVALID Jie Feb 03 14:45:22 EDT 2020 Amphetamines 209.00NegativeNegative ng/mL [facility] Feb 03 14:33:53 EDT 2020 Barbiturates -15.00NegativeNegative ng/mL [facility] Feb 03 14:34:12 EDT 2020 Benzodiazepines -31.00Negative *Negative ng/mL [facility] Feb 03 14:34:21 EDT 2020 Buprenorphine 0.80NegativeNegative* ng/mL J[facility] Feb 03 14:34:27 EDT 2020 Cocaine Metabolites 175.00Negati veNegative ng/mL [facility] Feb 03 14:35:00 EDT 2020 Cotinine 1671.00PRESUMPTIVE POSI TIVEPRESUMPTIVE POSITIVE ng/mL [facility] Feb 03 14:35:07 EDT 2020 EDDP -91.00NegativeNegative ng/m L [facility] Feb 03 14:35:14 EDT 2020 Ethyl Glucuronide 26.00Negative* Negative ng/mL [facility] Feb 03 14:35:21 EDT 2020 Ethyl Alcohol 7.00NegativeNegative* mg/dL [facility] Feb 03 14:35:46 EDT 2020 Fentanyl 0.100NegativeNegative n g/mL [facility] Feb 03 14:35:53 EDT 2020 Heroin (6-AM) -1.30NegativeNegative ng/mL [facility] Feb 03 14:35:59 EDT 2020 Methadone -37.00NegativeNegative ng/mL [facility] Feb 03 14:36:13 EDT 2020 Opiates -32.00NegativeNegative n g/mL [facility] Feb 03 14:36:28 EDT 2020 Synthetic Opiates -13.00Negative Negative ng/mL [facility] Feb 03 14:37:06 EDT 2020 Phencyclidine -4.90NegativeNegative ng/mL [facility] Feb 03 14:37:16 EDT 2020 Cannabinoids 7.80NegativeNegative * ng/mL [facility] Feb 03 14:37:27 EDT 2020 Tramadol -18.00NegativeNegative ng/mL [facility] Feb 03 14:37:51 EDT 2020 Tricyclics 16.00NegativeNegative ng/mL [facility] Feb 03 14:38:40 EDT 2020 Ecstasy [...] 14 20:51:41 2019 EDDP -34.00NegativeNegative ng/m L Jie Apr [...] 18:21:06 2019 Tramadol 37.00NegativeNegative n g/mL SatMay 18:21:06 [...] SatMay 19 16:33:47 2019 Clomipramine 37.370NegativeNegative ng/mL Jie [...] SatJul 12 19:41:14 2020 Oxidants -11.00NegativeNegative mcg/mL e Jul 12 19:41:14 2020 Validity Result VALIDVALIDVALID SatJul [...] 19:41:16 2020 Buprenorphine 216.190Positive - ConsistentPOSITIVE ng/mL SatJul 13 11:17:06 2020 Norbuprenorphine 476.890Positive - ConsistentPOSITIVE [...] 13 10:13:03 EST 2020 Lurasidone 0.280NegativeNegative ng/mL [facility] Jul 13 10:13:03 2020 Olanzapine 0.140NegativeNegative ng/mL SatJul 13 10:13:03 2020 Promethazine 0.020NegativeNegative* ng/mL [facility] Jul 13 10:13:03 2020 Quetiapine 50Positive - Consiste ntPOSITIVE> ng/mL [facility] Jul 13 10:13:03 2020 Risperidone 0.000NegativeNegative * ng/mL [facility] Jul 13 10:13:03 2020 Trifluoperazine 0.230Negative Negative ng/mL [facility] Jul 13 10:13:03 2020 Ziprasidone 0.000NegativeNegative * ng/mL [facility] Jul 13 10:13:03 2020 Bupropion 50Positive - Consisten tPOSITIVE> ng/mL [facility] Jul 13 10:13:03 2020 Hydroxybupropion 50Positive - Co nsistentPOSITIVE> ng/mL [facility] Jul 13 10:13:03 2020 Trazodone 50Positive - Consisten tPOSITIVE> ng/mL [facility] Jul 13 10:13:03 2020 mCPP 50Positive - Consistent *POSITIVE> ng/mL [facility] Jul 13 10:13:03 2020 Creatinine 221.8NORMALNORMAL mg/ [...] Dec 29 12:55 :00 EDT 2020 E [id number] null GLUCOSE 92 mg/dL SatJan 04 11 [...] cells/uL SatJan 04 11:34:00 EDT 2020 ABSOLUTE [place] DNR cells/uL SatJan 04 11:34:00 EDT 2020 [...] W/ NON-REACTIVE Sat 11:34:00 EDT 2020 E [id number] null Medications Medication Directions Start Date End [...] ACETATE) 0.15 MG/1 ACT UATION SPRAY 1 [place] BIDPRN: Twice A Day As Needed NASAL [...] Daily ORAL SatDec 30 06:00:00 EDT 2020Jan 27 05:59 :00 EDT 2020 VENLAFAXINE HCL 37.5 MG CAPSULE, EXTENDED RE LEASE 1 Capsule Daily ORAL SatDec 30 06:00:00 EDT 2020Jan 27:59 :00 EDT 2020 MIRALAX [...] 2020 FIBER-LAX 625 MG TABLET 2 tablet IL N: As Needed ORAL (MDD 4 Tabs) [...] ORAL SatDec 28 16:02:00 EDT 2020Jan 25 16::00 EDT 2020 ORAJEL MOUTH SORE MEDICINE (BE [...] 1 Capsule HS: At Bedtime ORAL SatDec 28:07:00 EDT 2020Jan 25 16:06 :00 EDT 2020 [...] mouth at bedtime SatDec 09 00:00:00 ED2020Jan 07:00 :00 ED2020 Wellbutrin XL 150 MG T24 Take one ( 1) tablet by mouth daily SatDec 09:00:00 2020Feb 06:00 :00 ED2020 traZODone hydrochloride 150 MG [...] a day SatDec 09:00:00 ED2020Feb 06:00 :00 2020 Effexor XR 37.5 MG CER Take one (1) capsule by mouth every morning SatDec 09 00:00:00 ED2020Jan 07:00 :00 ED2020 Minipress 5 MG CAP Take one (1) cap robert by mouth at bedtime SatDec 09 00:00:00 EDT 2020Feb 06:00 :00 EDT [address] one (1) bran m under the tongue three times a day SatDec 09 00:00:00 2020Jan 07:00 :00 2020 SEROquel 100 MG TAB Take one (1) ta blet by mouth at bedtime SatNov 10 00:00:00 ED2020Dec 09 00:00 :00 2020 Effexor XR 37.5 MG CER Take one (1) capsule by mouth every morning SatNov 10 00:00:2020Dec 09 00:00 :00 ED2020 Suboxone 0.0 BRAN [...] 00:00:00 2019Jul 28 00:00 :00 EST 2020 Buprenorphine-Naloxone 0.0 [...] mouth at bedtime SatMay 17 00:00:2019May 30 00:00:00 2019 Wellbutrin XL 150 MG T24 [...] a day SatMay 17 00:00:00 2019May 30 00:00 :00 2019 lamoTRIgine 25 [...] 2019Apr 25 00:00:00 2019 DDAVP 0.0 SPR [place] two (2) sprays in nostril(s) daily SatApr 12 00:00:00 2019Sep 09 00:00 :00 EDT 2020 cloNIDine HCl 0.1 MG TAB Take one ( 1) tablet by mouth three times a day, as needed SatApr 12:00:00 2019May 11 00:00:00 2019 rOPINIRole HCl 0.25 [...] 10 00:00 :00 2020 Narcan 0.0 SPR [place] one (1) spray in nostril(s) daily SatApr [...] SatNov 17 00:00:00 2019Dec 16 00:00 :00 ED2019 Suboxone 0.0 BRAN [...] 03 00:00 :00 2019 Narcan 0.0 SPR [place] one (1) spray in nostril(s) daily SatNovember [...] 00:00:00 2019Sep 09:00:00 2020 DDAVP 0.0 SPR [place] two (2) sprays in nostril(s) daily SatApr [...] 2019Sep 09:00 :00 2020 Narcan 0.0 SPR [place] one (1) spray in nostril(s) daily SatApr [...] SatAug 18 00:00:00 ED2019Aug 25 00:00 :00 ED2019 Singulair 10 MG TAB [...] RELEASE, 24 HR e Feb 11 08:00:00 EST 2020 Tue [...] CHLORIDE) 0.02%-20%-0.1% GEL/JELLY Mon Feb 1 0 23:24:2019Aug 17 00:23:00 EDT 2019 MYLANTA (ALUMINUM HYDROXIDE-MA GNESIUM HYDROXIDE-SIMETHICONE) 200MG/5 ML-200MG/5 ML-20MG/5 ML SUSPENSION Sat Feb 10 23:24:2019Aug 17 00:23:00 EDT 2019 MULTIVITAMIN TABLET Sat Feb 10 :24:2019Aug 17 00:23:00 EDT 2019 MELATONIN 5 MG [...] 80 MG TABLET, CHEWABLE Sat Feb 10 :24:2019Aug 17 00:23:00 EDT 2019 ACETAMINOPHEN (TYLENOL) 500 MG TABLET Sat Feb 10 :24:00 2019Aug 17 00:23:00 EDT 2019 NICOTINE POLACRILEX 4 MG LOZENGE/BERTHA Sat Feb 10 :24:00 2019 24 23:23:00 EST 2019 MONTELUKAST SODIUM 10 MG TABLET Sat Feb 10 :24:00 2019Aug 17 00:23:00 EDT 2019 ADVAIR DISKUS 250/50 (FLUTICAS ONE PROPIONATE-SALMETEROL XINAFOATE) 0.25MG/1 ACTUATION-0.05MG/1 ACTUATION DISK Mo n Feb 10 :24:00 2019Aug 17 00:23:00 EDT 2019 HYDROXYZINE HCL 25 MG TABLET Sat Feb 04 01::2019 Sat Feb 15 ::00 2019 ZOFRAN (ONDANSETRON) 4 MG TABLET, DISINTEGRATING Satb 04 01::2019 Sat Feb 15 ::00 2019 CATAPRES (CLONIDINE HYDROCHLORIDE) 0.1 MG TABLET Satb 04 01::00 2019 Sat Feb 15 ::00 2019 XOPENEX (LEVALBUTEROL HYDROCHLORIDE) 1.25 MG /3 ML SOLUTION Satb 04 01::00 2019Aug 17 00:23 :00 EDT 2019 TRIPLE ANTIBIOTIC OINTMENT 40 0UNITS/1GM-3.5MG/1GM-5000UNITS/1GM OINTMENT SatJul 20::00 2019Aug 17 00:23:00 EDT 2019 PEPTO-BISMOL (BISMUTH SUBSALICYLATE) 262 MG/ 15 ML SUSPENSION SatJul 20:24:00 2019Aug 17 00:23 :00 EDT 2019 MILK OF MAGNESIA 400 MG/5 ML SOLUTION SatJul 20::2019Aug 17 00:23:00 EDT 2019 GUAIFENESIN 600 MG TABLET, EXTENDED RELEASE SatJul 20::00 2019Aug 17 00:23:00 EDT 2019 COLACE (DOCUSATE SODIUM) 100 MG CAPSULE, LIQ UID FILLED SatJul 20:24:00 2019Aug 17 00:23 :00 EDT 2019 BENADRYL ALLERGY (DIPHENHYDRAM INE HYDROCHLORIDE) 25 MG TABLET Satb 10 :24:00 2019Aug 17 00:23:00 EDT 2019 EUCERIN DAILY PROTECTION (LOTI ON, MULTI INGREDIENT) 2%-7.5%-4.5%-2.4%-4.8% LOTION Sat Feb 10 23:2 4:00 2019Aug 17 00:23:00 EDT 2019 EUCERIN DAILY PROTECTION (LOTI ON, MULTI INGREDIENT) 2%-7.5%-4.5%-2.4%-4.8% LOTION Sun Feb 09 10:0 5:00 EST 2020 Sat 08 11:04:00 EDT 2020 TRAZODONE HYDROCHLORIDE 50 MG TABLET Sun Feb 10:03:00 EST 2019Aug 15 11:02:00 EDT 2019 ACETAMINOPHEN (TYLENOL) 500 MG TABLET Sun Feb 04:55:00 EST 2019 Sun Aug 15 05:54:00 EDT 2020 GAS-X (SIMETHICONE) 80 MG TABLET, CHEWABLE Sat Feb 08 15:55:00 EST 2019 Sat Aug 14 15:54:00 EST 2020 TUMS (CALCIUM CARBONATE) 500 MG TABLET, CHEWABLE Sat Feb 08 15:55:00 EST 2019Aug 14 15:54:00 EST 2019 BENADRYL ALLERGY (DIPHENHYDRAM INE HYDROCHLORIDE) 25 MG TABLET Sat Feb 08 15:55:00 EST 2019 t Aug 14 15:54:00 EST 2020 BENADRYL ALLERGY [...] 2020 Sat Aug 14 15:54:00 EST 2020 MULTIVITAMIN TABLET Sat Feb 08 15:55:00 EST 2020 SatAug 14 15:54:00 EST 2020 MYLANTA (ALUMINUM HYDROXIDE-MA GNESIUM HYDROXIDE-SIMETHICONE) 200MG/5 ML-200MG/5 ML-20MG/5 ML SUSPENSION Sat Feb 08 15:55:00 EST 2020 SatAug 14 15:54:00 EST 2020 ORAJEL MOUTH SORE MEDICINE (BE NZALKONIUM CHLORIDE-BENZOCAINE/ZINC CHLORIDE) 0.02%-20%-0.1% GEL/JELLY Sat Feb 0 8 15:55:00 EST 2020 Sat 07 15:54:00 EST 2019 PEPTO-BISMOL (BISMUTH SUBSALICYLATE) 262 MG/ 15 ML SUSPENSION Sat Feb 08 15:55:00 EST 2020 SatAug 14 15:54 :00 EST 2019 PEPCID (FAMOTIDINE) 40 MG TABLET Sat Feb 08 15:55:00 EST 2019Aug 14 15:54:00 EST 2019 TRIPLE ANTIBIOTIC [...] Sa t Feb 08 15:55:00 EST 2020 SatAug 14 [...] 12:24:00 2019 d Aug 11 12:23:00 2019 PEPCID (FAMOTIDINE) 40 MG [...] EST 2019 Fri Feb 14 08:03:00 EST 2019 FIBER-LAX 625 MG TABLET Fri Jun 26 [...] times a day SatDec 22 00:00:00 2018 [facility] Sep 00:00 :00 2018 Prazosin HCl 1 MG CAP Take one (1) capsule by mouth at bedtime SatDec 22 00:00:00 2018 [facility] Sep 00:00 :00 2018 traZODone hydrochloride 100 MG TAB Take one (1) or two (2) tablets by mouth at bedtime, as needed. SatDec 22 00:00:00 2018 [facility] Sep 00:00:00 2018 Topamax 25 MG CAP Take one (1) caps ule by mouth twice a day SatDec 22 00:00:00 2018 [facility] Sep 00:00 :00 2018 Prazosin HCl 5 MG CAP Take one (1) capsule by mouth at bedtime SatDec 22 00:00:00 2018 [facility] Sep 00:00 :00 2018 hydrOXYzine Pamoate 50 MG CAP Take one (1) capsule by mouth twice a day, as needed SatDec 22 00:00:00 2018 [facility] Sep 00:00:00 2018 hydrOXYzine Pamoate 50 MG CAP Take one (1) capsule by mouth twice a day, as needed SatNov 24 00:00:00 2018Dec 22 00:00:00 ED2018 Prazosin HCl 1 MG CAP Take [...] GABAPENTIN 300 MG CAPSULE SatAug 27 22:33:00 ED2018Sep 24 22:32:00 EDT 2018 PRAZOSIN HCL 5 [...] at bedtime SatSep 19 00:00:00 ED2017Sep 28: :00 ED2017 busPIRone HCl 15 MG TAB Take one (1 ) tablet by mouth twice a day SatSep 19 00:00:00 ED2017Sep 28 00:00 :00 ED2017 chlorproMAZINE HCl 25 MG TAB Take o ne (1) tablet by mouth four times a day SatSep 19 00:00:00 ED2017Sep 28 00:00:00 EDT 2017 hydrOXYzine HCl 25 MG TAB Take one (1) tablet by mouth every 6 hours SatJul 25 00:00:00 EST 2017Aug 03 00:00 :00 EST 2017 Problems Active Concerns * Opioid abuse * Code: 8660748 * Start Date: SatJun 10 11:00:00 EST [...] * Alcohol use disorder, severe * Code: 84493907 * Start Date: SatJun 24 07:00:00 2019 * Text: * Severe nicotine withdrawal * Code: 16945613 * Start Date: SatJun 24 07:00:00 2019 * Text: * Stimulant use disorder * Code: 913585693 * Start Date: SatJun 24 07:00:00 2019 * Text: * Synthetic cannabinoid dependence * Code: 432110517 * Start Date: SatJul 15 07:00:00 2019 * Text: * Opioid use disorder, severe, dependence * Code: 71206794 * Start Date: SatJul 15 07:00:00 2019 * Text: * Current every day smoker * Code: 815471415 * Start Date: SatJul 15 07:00:00 2019 * Text: * Bipolar disorder with psychotic features * Code: 10245675 * Start Date: SatSep 29 08:00:00 EDT [...] 11:09:00 EDT 2019 BP Position 2 Position Sat 2 6 11:09:00 EDT 2019 Height 4 9 [...] 7 06:02:00 EST 2020 Temperature 97.9 [DEGF] Ije Feb 06 17:20:00 EST 2020 Temperature 36.6 [...] 2020 BP Position 3 Position Sat Jun 1 8 10:20:00 EST 2020 Temperature 97.1 [DEGF] [...] Temperature 97.2 [DEGF] SatJun 24 09:45:00 EST 2019 Temperature 36.2 SUSANA SatJun 10 09:45:00 EST 2019 Heart Rate 59 /MIN SatJun 24 09:45:00 EST 2020 Systolic 116 MM[HG] SatJun 24 0 9:45:00 EST 2019 Diastolic 76 MM[HG] SatJun 24 09:45:00 EST 2020 BP Position 2 Position SatJun 10 09:45:00 EST 2019 Height 4 9 ft SatJun 24 09: 45:00 EST 2019 Height 57 in SatJun 24 09: 45:00 EST 2019 Height 144.8 cm SatJun 24 09: 45:00 EST 2019 Weight Lbs 165 lbs SatJun 24 09:45:00 EST 2019 Weight Kgs 75 KG SatJun 24 09:45:00 EST 2019 BMI 35.7 % SatJun 24 09:45: 00 EST 2019 Temperature 98.0 [DEGF] [facility] Feb 07 12:39:00 EDT 2018 Temperature 36.7 SUSANA SatJan 10 12:39:00 EDT 2018 Heart Rate 69 /MIN SatFeb 07 12:39:00 EDT 2018 Respiration 14 /MIN SatJan 10 12:39:00 EDT 2018 SpO2 98 % SatFeb 07 12:39 :00 EDT 2018 Systolic 100 MM[HG] SatFeb 07 2:39:00 EDT 2018 Diastolic 59 MM[HG] [facility] Feb 07 12:39:00 EDT 2018
--- OUTSIDE RECORDS SUMMARY | 2021-03-23 20:21 | CCD ---
Author Author Jasmin Farley Organization [employer] Address [address] [place] [address] Care Team Providers Care Assembler Tractor Name Role Phone Ambreen Farley Unavailable JohannykevinDahiana Unavailable Min Hernandez Unavailable Monika White Unavailable Functional Status No Results Mental Status No Results Assessments SatJan 03 20:49:03 EDT 2020: No Assessment Information Health Concerns [...] most recent episode (or current) unspecified* Code: [id number] * Start Date: SatApr 01 09:00:00 EDT 2019 * Text: * Mental Health and Stress Management* Code: * Start Date: SatNovember 02 00:00:00 EDT 2020 * Text: * Mental Health and Stress Management* Code: * Start Date: SatDec 21 00:00:00 EDT 2020 * Text: * Posttraumatic stress disorder* Code: 41293840 * Start Date: SatApr 01 09:30:00 EDT [...]
--- OUTSIDE RECORDS SUMMARY | 2021-03-23 20:21 | CCD ---
Author Author DENISHA LOPEZ [facility] Address [address] [place] [address] Care Team Providers Care Inlayer Silver Name Role Phone Yaron Lobato AttendingPractitioner1 Peyton [...] Practitioner Quintin Cornell Admphys Zara Valdez Practitioner Zaar Flores Practitioner Yung Donovan Practitioner Samuel Pierce [...] Primary Diagnosis Admission Date/ Time Discharge Date/Time [place] [facility] SatJan 10 11:41:00 EDT 2016 Mukul IP Synthetic davey abinoid dependence SatDec 28 10:30:00 EDT 2020 [facility] Polysubstance abuse SatJun 24 09:10:00 EST 2019Aug 03 08:17:00 EST 2019 [place] Synthetic cannabinoid dependence SatJul 15 10:25:00 EST 2019 Sat Jul 18 14:14:00 EST 2019 [place] [facility] Sat Jan 12 09:36:00 EDT 2016 Lauren Vicente Waiting SatSep 11 09:41:00 EDT 2019 Lauren Eatons Waiting SatJun 13 13:54:00 EST 2020Jun 27 17:13:00 EST 2020 Maude Gilman Severe opioid use disorder SatJul 20 11:59:00 EST 2019Aug 01 17:29:00 EST 2020 [facility] SatSep 24 12:11:00 EDT 2019 [facility] Drug abuse counseling and surveillance of drug abuser SatAug 03 08:19:00 EST 2019Feb 15 08:55:00 EDT 2019 [facility] SatJan 08 10:39:00 EDT 2016 Lauren Eatons Waiting Heroin use disorder, severe, on maintenance therapy, dependence SatAug 20 09:30:00 EDT 2019October 14 11:29:00 EDT 2019 [facility] SatSep 24 13:11:00 EDT 2018Mar 02 11:08:00 EDT 2019 [facility] Heroin use disorder, moderate, dependence SatApr 04 10:25:00 EDT 2019 The SatAug 27 14:15:00 EDT 2019 [place] Alcohol use disorder, severe SatJun 24 14:16:00 EST 2019 Sat Jun 27 13:25:00 EST 2019 [facility] Wed J an 15 02:02:00 EST 2019 [facility] SatJul 10 16:04:00 EST 2018 [facility] SatOctober 08 11:40:00 EDT 2016 [facility] SatAug 19 09:30:00 EDT 2019 [facility] SatJan 09 10:42:00 EDT 2017 [facility] Wait[facility] SatOct 01 08:57:00 EDT 2019Nov 19 13:39:00 EDT 2020 [place] Synthetic cannabinoid dependence SatJul 18 [...] SatJan 19 15:21:00 EDT 2019 eGFR NON-AFR. MALAYSIAN DNR mL/min/1.73m2 SatJan 19 15:21:00 EDT 2019 [...] :21:00 EDT 2019 PROTEIN, TOTAL DNR g/dL [facility] 15:21:00 EDT 2019 ALBUMIN DNR g/dL SatJan [...] 12 15:21:00 EDT 2019 NEUTROPHILS DNR % [facility] Jan 08 2 15:21:00 EDT 2019 BAND NEUTROPHILS DNR % [facility] Jan 12 15:21:00 EDT 2019 METAMYELOCYTES DNR % Mon Au g 12 15:21:00 EDT 2019 MYELOCYTES DNR % [facility] Jan 12 15:21:00 EDT 2019 PROMYELOCYTES DNR % [facility] Jan 19 15:21:00 EDT 2019 LYMPHOCYTES DNR % [facility] Jan 08 2 15:21:00 EDT 2019 REACTIVE LYMPHOCYTES DNR % [facility] Jan 19 15:21:00 EDT 2019 MONOCYTES DNR % [facility] Jan 19 15:21:00 EDT 2019 EOSINOPHILS DNR % [facility] Jan 08 2 15:21:00 EDT 2019 BASOPHILS DNR % [facility] Jan 19 15:21:00 EDT 2019 BLASTS DNR % [facility] Jan 12 15: 21:00 EDT 2019 NUCLEATED RBC DNR /100 WBC [facility] Sarkis ug 12 15:21:00 EDT 2019 COMMENT(S) DNR [facility] Jan 19 15:21:00 EDT 2019 HCG, QL, URINE NEGATIVE [facility] Tayler g 12 15:21:00 EDT 2019 BUPRENORPHINE 530 [...] 23 09:21:00 EDT 2019 Benzoylecgonine DNR ng/mL Sat A ug 16 09:21:00 EDT 2019 Confirmation [...] ng/mL SatJan 09 8 14:04:00 EDT 2019 Methamphetamine DNR ng/mL [...] (BUN) 11 mg/dL F ri Feb 11:33:00 2020 CREATININE 0.78 mg/dL Sat Feb 11:33:00 2020 eGFR NON-AFR. MALAYSIAN 101 mL/min/1.73m2 Sat Feb 11:33:00 2020 eGFR [...] Feb 11:33: 00 2020 MCH 32.1 pg Sat Feb 11:33: 00 2020 MCHC 34.1 g/dL Sat Feb 11:33 :00 2020 RDW 13.6 % Sat Feb 11:33: 00 EST 2020 PLATELET COUNT 284 Thousand/uL F ri Feb 21 11:33:00 EST 2020 MPV 11.4 fL Sat Feb 21 11:33: 00 EST 2020 ABSOLUTE NEUTROPHILS 5724 cells/uL Fri Feb 21 11:33:00 EST 2020 ABSOLUTE BAND NEUTROPHILS DNR cells/uL Fri Feb 21 11:33:00 EST 2020 ABSOLUTE METAMYELOCYTES DNR cells/uL Sat Feb 21 11:33:00 EST 2020 ABSOLUTE MYELOCYTES DNR cells/uL Fri Feb 21 11:33:00 EST 2020 ABSOLUTE PROMYELOCYTES DNR cells/uL Fri Feb 11:33:00 EST 2020 ABSOLUTE LYMPHOCYTES 2682 [...] eb 21 11:33:00 EST 2020 COMMENT(S) DNR Fri Feb 21 11:33:00 EST 2020 HEPATITIS C ANTIBODY REACTIVE Fri Feb 21 11:33:00 EST 2020 SIGNAL TO CUT-OFF 31.20 Fri Feb 21 11:33:00 EST 2020 RPR (DX) W/REFL TITER AND CONFIRMATORY TESTI NG NON-REACTIVE Fri Feb 21 11:33:00 EST 2020 HCV [...] Tue Feb 11 05:49:00 EST 2020 COMMENT e [...] mg/dL SatAug 10 23:32:00 2019 eGFR NON-AFR. MALAYSIAN 113 mL/min/1.73m2 SatAug 10:32:00 2019 eGFR 132 mL/min/1.73m2 SatAug 10 23:32:00 2019 HEMOGLOBIN 13.2 g/dL SatAug 10:32:00 2019 PARATHYROID HORMONE, INTACT 34 pg/mL SatAug 10:32:00 2019 CALCIUM 8.8 mg/dL SatAug 10 :32:00 2019 PHOSPHATE ( PHOSPHORUS) 4.3 mg/dL SatAug 10:32:00 2019 VITAMIN D,25-OH,TOTAL,IA 19 ng/mL SatAug 10:32:00 2019 PROTEIN, TOTAL 6.8 g/dL 23:32:00 2019 ALBUMIN 3.7 g/dL SatAug 10 :32:00 [...] 14:55:00 EDT 2019 Alphahydroxytriazolam DNR ng/mL Sat Mar 15 14:55:00 EDT 2020 Aminoclonazepam DNR ng/mL Sun ar 15 14:55:00 EDT 2020 Hydroxyethylflurazepam DNR ng/mL Sat 15 14:55:00 EDT 2020 Lorazepam DNR ng/mL Sun Mar 15 14:55:00 EDT 2020 Nordiazepam DNR ng/mL Sat Mar 1 5 14:55:00 EDT 2020 Oxazepam [...] 11:27:00 EDT 2019 Morphine DNR ng/mL Jie Aug 26 1 [...] 17:48:00 EDT 2019 Nordiazepam DNR ng/mL SatSep 08:48:00 EDT 2019 Oxazepam DNR ng/mL SatSep 17 [...] 15 15:17:08 EDT 2019 Validity Result VALIDVALIDVALID Sat May 09 15:29:21 EDT 2020 Amphetamines 509.00PRESUMPTIVE P OSITIVEPRESUMPTIVE [...] Phencyclidine 6.70NegativeNegative* ng/mL SatOctober 15 15:17:09 EDT 2019 Cannabinoids -12.20NegativeNegative ng/mL SatOctober 15 15:17:09 EDT [...] 14:39:04 EDT 2020 Desmethyldoxepin 1.090Negative *Negative ng/mL [facility] October 16 14:39:05 EDT 2020 Doxepin 8.060NegativeNegative ng /mL [facility] October 16 14:39:05 EDT 2019 Imipramine 6.300NegativeNegative ng/mL [facility] October 16 14:39:05 EDT 2019 Nortriptyline 5.360NegativeNegative ng/mL [facility] October 16 14:39:05 EDT 2019 Amitriptyline 11.540NegativeNegativ e ng/mL [facility] October 16 14:39:05 EDT 2019 Clomipramine 8.540NegativeNegative* ng/mL [facility] October 16 14:39:05 EDT 2019 Desipramine 5.480NegativeNegative * ng/mL [facility] October 16 14:39:06 EDT 2020 Creatinine 204.1NORMALNORMAL mg/ dL [facility] Feb 03 14:38:10 EDT 2020 pH 6.3NORMALNORMAL Jie Feb 03 14:38:32 EDT 2020 Oxidants -17.00NegativeNegative mcg/mL [facility] Feb 03 14:36:48 EDT 2019 Validity Result VALIDVALIDVALID Jie Feb 03 14:45:22 EDT 2020 Amphetamines 209.00NegativeNegative ng/mL [facility] Feb 03 14:33:53 EDT 2019 Barbiturates -15.00NegativeNegative ng/mL [facility] Feb 03 14:34:12 EDT 2020 Benzodiazepines -31.00Negative *Negative ng/mL Jie Feb 03 14:34:21 EDT 2020 Buprenorphine 0.80NegativeNegative* ng/mL Jie Feb 03 14:34:27 EDT 2020 Cocaine Metabolites 175.00Negati veNegative ng/mL Jie Feb 03 14:35:00 EDT 2020 Cotinine 1671.00PRESUMPTIVE POSI TIVEPRESUMPTIVE POSITIVE ng/mL Jie Feb 03 14:35:07 EDT 2020 EDDP -91.00NegativeNegative ng/m L [facility] Feb 03 14:35:14 EDT 2020 Ethyl Glucuronide 26.00Negative* Negative ng/mL [facility] Feb 03 14:35:21 EDT 2020 Ethyl Alcohol 7.00NegativeNegative* mg/dL [facility] Feb 03 14:35:46 EDT 2020 Fentanyl 0.100NegativeNegative n g/mL [facility] Feb 03 14:35:53 EDT 2020 Heroin (6-AM) -1.30NegativeNegative ng/mL [facility] Feb 03 14:35:59 EDT 2020 Methadone -37.00NegativeNegative ng/mL [facility] Feb 03 14:36:13 EDT 2020 Opiates -32.00NegativeNegative n g/mL [facility] Feb 03 14:36:28 EDT 2020 Synthetic Opiates -13.00Negative Negative ng/mL [facility] Feb 03 14:37:06 EDT 2020 Phencyclidine -4.90NegativeNegative ng/mL [facility] Feb 03 14:37:16 EDT 2020 Cannabinoids 7.80NegativeNegative * ng/mL [facility] Feb 03 14:37:27 EDT 2020 Tramadol -18.00NegativeNegative ng/mL [facility] Feb 03 14:37:51 EDT 2020 Tricyclics 16.00NegativeNegative ng/mL [facility] Feb 03 14:38:40 EDT 2020 Ecstasy (MDMA) -1.00NegativeNegativ e ng/mL [facility] Feb 03 14:38:49 EDT 2020 Buprenorphine [...] 19 16:33:47 2019 Doxepin 4.240NegativeNegative ng /mL SatMay 19 16:33:47 2019 Imipramine 1.960NegativeNegative ng/mL SatMay [...] SatJul 13 10:13:03 2020 Lurasidone 0.280NegativeNegative ng/mL [facility] Jul 13 10:13:03 2020 Olanzapine 0.140NegativeNegative ng/mL SatJul 13 10:13:03 2020 Promethazine 0.020NegativeNegative* ng/mL [facility] Jul 13 10:13:03 2020 Quetiapine 50Positive - Consiste ntPOSITIVE> ng/mL [facility] Jul 13 10:13:03 2020 Risperidone 0.000NegativeNegative * ng/mL [facility] Jul 13 10:13:03 2020 Trifluoperazine 0.230Negative Negative ng/mL [facility] Jul 13 10:13:03 2020 Ziprasidone 0.000NegativeNegative * ng/mL [facility] Jul 13 10:13:03 2020 Bupropion 50Positive - Consisten tPOSITIVE> ng/mL [facility] Jul 13 10:13:03 2020 Hydroxybupropion 50Positive - Co nsistentPOSITIVE> ng/mL [facility] Jul 13 10:13:03 2020 Trazodone 50Positive - Consisten tPOSITIVE> ng/mL [facility] Jul 13 10:13:03 2020 mCPP 50Positive - Consistent *POSITIVE> ng/mL [facility] Jul 13 10:13:03 2020 Creatinine 221.8NORMALNORMAL [...] 2020 TRANSITIONA DNR /HPF Jie Dec 09 12:55:00 EDT 2020 RENAL EPITH DNR /HPF [...] Dec 29 12:55 :00 EDT 2020 E [id number] null GLUCOSE 92 mg/dL SatJan 04 01 :00:00 EDT 2020 UREA NITROG 27 mg/dL SatDec 09 8 01:00:00 EDT 2020 CREATININE 1.18 mg/dL SatJan 04 01:00:00 EDT 2020 eGFR NON-AF 61 mL/min/1.73m2 SatJan 04 01:00:00 EDT 2020 eGFR TEZ 71 mL/min/1.73m2 SatJan 04 01:00:00 EDT 2020 BUN/CREATIN 23 (calc) SatDec 09 01:00:00 EDT 2020 SODIUM 136 mmol/L SatJan 04 01: 00:00 EDT 2020 POTASSIUM 5.0 mmol/L SatJan 04 01:00:00 EDT 2020 CHLORIDE 102 mmol/L SatJan 04 0 1:00:00 EDT 2020 CARBON DIOX 20 mmol/L SatDec 09 01:00:00 EDT 2020 CALCIUM 9.0 mg/dL SatJan 04 01 :00:00 EDT 2020 PROTEIN, TO 6.3 g/dL SatDec 09 01:00:00 EDT 2020 ALBUMIN 4.0 g/dL SatJan 04 01 :00:00 EDT 2020 GLOBULIN 2.3 g/dL (calc) SatJan 04 01:00:00 EDT 2020 ALBUMIN/EMIL 1.7 (calc) SatDec 09 01:00:00 EDT 2020 BILIRUBIN, 0.2 mg/dL SatJan 04 01:00:00 EDT 2020 ALKALINE PH 68 U/L SatDec 09 01:00:00 EDT 2020 AST 19 U/L SatJan 04 01:00: 00 EDT 2020 ALT 22 U/L SatJan 04 01:00: 00 EDT 2020 HCV RNA, QU SatDec 09 01:00:00 EDT 2020 HCV RNA, QU SatDec 09 01:00:00 EDT 2020 WHITE BLOOD SatDec 09 01:00:00 EDT 2020 RED BLOOD C SatDec 09 01:00:00 EDT 2020 HEMOGLOBIN SatJan 04 01:00:00 EDT 2020 HEMATOCRIT SatJan 04 01:00:00 EDT 2020 MCV SatJan 04 01:00: 00 EDT 2020 MCH SatJan 04 01:00: 00 EDT 2020 MCHC SatJan 04 01:00 :00 EDT 2020 RDW SatJan 04 01:00: 00 EDT 2020 PLATELET CO SatDec 09 01:00:00 EDT 2020 MPV Wed Dennis 28 01:00: 00 EDT 2020 ABSOLUTE NE Sat 2 8 01:00:00 EDT 2020 ABSOLUTE BA Sat 2 8 01:00:00 EDT 2020 ABSOLUTE ME Sat 2 8 01:00:00 EDT 2020 ABSOLUTE MY Sat 2 8 01:00:00 EDT 2020 ABSOLUTE TN Sat 2 8 01:00:00 EDT 2020 ABSOLUTE LY Sat 2 8 01:00:00 EDT 2020 ABSOLUTE MO Sat 2 8 01:00:00 EDT 2020 ABSOLUTE EO Wed Dec 2 8 01:00:00 EDT 2020 ABSOLUTE BA Sat 2 8 01:00:00 EDT 2020 ABSOLUTE BL Sat 2 8 01:00:00 EDT 2020 ABSOLUTE NU Sat 2 8 01:00:00 EDT 2020 NEUTROPHILS Sat 2 8 01:00:00 EDT 2020 BAND NEUTRO Sat 2 8 01:00:00 EDT 2020 METAMYELOCY Sat 2 8 01:00:00 EDT 2020 MYELOCYTES Sat 28 01:00:00 EDT 2020 PROMYELOCYT Sat 2 8 01:00:00 EDT 2020 LYMPHOCYTES Sat 2 8 01:00:00 EDT 2020 REACTIVE LY Sat 2 8 01:00:00 EDT 2020 MONOCYTES Sat 28 01:00:00 EDT 2020 EOSINOPHILS Sat 2 8 01:00:00 EDT 2020 BASOPHILS Sat 28 01:00:00 EDT 2020 BLASTS Sat 28 01: 00:00 EDT 2020 NUCLEATED R Sat 2 8 01:00:00 EDT 2020 COMMENT(S) Sat 28 01:00:00 EDT 2020 RPR (DX) W/ Sat 2 8 01:00:00 EDT 2020 E [id number] null Medications Medication Directions Start Date End [...] ACETATE) 0.15 MG/1 ACT UATION SPRAY 1 [place] BIDPRN: Twice A Day As Needed NASAL [...] a Day ORAL SatDec 30 06:00:00 ED2020Jan 27 05:59 :00 EDT 2020 QUETIAPINE FUMARATE [...] 30:00:00 EDT 2020Jan 27 05:59:00 EDT 2020 ACETAMINOPHEN [...] 2020 FIBER-LAX 625 MG TABLET 2 tablet TN N: As Needed ORAL (MDD 4 Tabs) [...] mouth twice a day SatDec 09 00:00:00 ED2020Feb 06 00:00 :00 ED2020 Vistaril 25 MG CAP Take one (1) cap robert by mouth three times a day, as needed for anxiety SatDec 09:00:00 ED2020Feb 06 00:00:00 2020 SEROquel 25 MG TAB Take one (1) tab let by mouth three times a day SatDec 09:00:00 2020Feb 06:00 :00 2020 Effexor XR 37.5 MG [...] a day, as needed SatOctober 10 00:00:00 EDT 2020Dec 08 00:00:00 EDT 2020 Minipress 1 MG CAP [...] 10 00:00:00 EDT 2020Dec 08 00:00 :00 2020 Vistaril 25 [...] by mouth three times a day SatAug 09:00:00 EST 2020Oct 07 [...] SatJun 27 00:00:00 2020Aug 09 00:00 :00 2020 Suboxone 0.0 BRAN [...] needed for anxiety SatMay 30 00:00:00 2019 [facility] Feb 18 00:00:00 2020 SEROquel 25 MG TAB Take one (1) tab let by mouth three times a day SatMay 30:00:00 2019 [facility] Feb 00:00 :00 2020 lamoTRIgine 25 MG TAB Take two (2) tablets by mouth at bedtime SatMay 30 00:00:00 2019u b 00:00 :00 2020 Buprenorphine-Naloxone 0.0 BRAN Aaron ce one (1) film under the tongue three times a day SatMay 17 00:00:00 2019May 30 00:00:00 2019 cloNIDine HCl 0.1 MG TAB Take one ( 1) tablet by mouth three times a day, as needed SatMay 17 00:00:00 2019May 30 00:00:00 EST 2020 Minipress 1 MG CAP Take one (1) cap robert by mouth daily SatMay 17 00:00:00 2019May 30 00:00 :00 EST 2019 traZODone hydrochloride 100 MG TAB Take one (1) tablet by mouth at bedtime SatMay 17 00:00:00 2019May 30 00:00:00 EST 2020 Wellbutrin XL 150 MG T24 Take one ( 1) tablet by mouth daily SatMay 17 00:00:00 2019May 30 00:00 :00 EST 2020 Vistaril 25 MG CAP Take one (1) cap robert by mouth three times a day, as needed for anxiety SatMay 17 00:00:00 2019May 30 00:00:00 EST 2020 SEROquel 25 MG TAB Take one (1) tab let by mouth three times a day SatMay 17:00:00 2019May 30 00:00 :00 EST 2020 lamoTRIgine [...] 2019Apr 25 00:00:00 2019 DDAVP 0.0 SPR [place] two (2) sprays in nostril(s) daily SatApr 12:00:00 2019Sep 09 00:00 :00 ED2020 cloNIDine HCl 0.1 MG TAB Take one ( 1) tablet by mouth three times a day, as needed SatApr 12:00:00 2019May 11:00:00 2019 rOPINIRole HCl 0.25 MG TAB Take one (1) tablet by mouth three times a day SatApr 12 00:00:00 2019Sep 09 00:00 :00 ED2020 Esomeprazole Magnesium [...] needed for anxiety SatApr 12 00:00:00 2019May 11:00:2019 SEROquel 25 MG TAB Take one (1) tab let by mouth three times a day SatApr 12 00:00:00 2019May 11 00:00 :00 2019 lamoTRIgine 25 MG TAB Take two (2) tablets by mouth at bedtime SatApr 12 00:00:00 2019May 11:00 :00 2019 Albuterol Sulfate HFA 0.0 ANGELICA Inha le two (2) puffs into the lungs twice a day, as needed SatApr 12:00:00 2019Sep 09:00:00 EDT 2020 Minipress 1 MG CAP Take one (1) cap robert by mouth daily SatApr 12 00:00:00 2019May 11 00:00 :00 2019 Singulair 10 MG TAB Take one (1) ta blet by mouth daily SatApr 12 00:00:00 2019Sep 09 00:00 :00 EDT 2020 Wellbutrin XL 150 MG T24 Take one ( 1) tablet by mouth daily SatApr 12 00:00:00 2019May 11:00 :00 2019 Topamax 25 MG CAP Take one (1) caps ule by mouth twice a day SatApr 12 00:00:00 2019Jun 10 00:00 :00 2020 Narcan 0.0 SPR [place] one (1) spray in nostril(s) daily SatApr [...] 03 00:00 :00 2019 Narcan 0.0 SPR [place] one (1) spray in nostril(s) daily SatNovember 03 00:00:00 2019 [facility] Dec 02 00:00 :00 2019 ZyPREXA 10 MG TAB Take one (1) tabl et by mouth at bedtime SatNovember 03 00:00:00 2019 [facility] Dec 02 00:00 :00 2019 SEROquel 100 MG TAB Take one (1) ta blet by mouth twice a day SatNovember 03 00:00:00 2019 [facility] Dec 02 00:00 :00 2019 traZODone hydrochloride 100 MG TAB Take one (1) tablet by mouth at bedtime SatNovember 03 00:00:00 2019Sep 09 00:00:00 2020 Wellbutrin XL 150 MG T24 Take one ( 1) tablet by mouth daily SatNovember 03 00:00:00 2019 [facility] Dec 02 00:00 :00 2019 Topamax 25 MG CAP Take one (1) caps ule by mouth twice a day SatNovember 03 00:00:00 2019 [facility] Jan 01 00:00 :00 2019 traZODone hydrochloride 50 MG TAB T deb one (1) tablet by mouth at bedtime SatNovember 03 00:00:00 2019 [facility] Dec 02 00:00:00 2019 Zubsolv 0.0 [...] 2019Sep 09 00:00:00 2020 DDAVP 0.0 SPR [place] two (2) sprays in nostril(s) daily SatApr [...] 09 00:00 :00 2020 Narcan 0.0 SPR [place] one (1) spray in nostril(s) daily SatApr [...] a day, as needed SatOctober 13 00:00:00 2019 Jie Eugenio 04 00:00:00 2019 traZODone hydrochloride 50 MG TAB [...] 05 00:00:00 2019Sep 02 00:00 :00 EDT 2020 SEROquel 100 MG [...] :00 EDT 2020 METRONIDAZOLE 500 MG TABLET Satb 08:00:00 EST 2019Aug 09 07:59:00 EST 2020 QUETIAPINE FUMARATE 100 MG TABLET Fri b 08:00:00 EST 2019 Fri Mar 08:59:00 EDT 2020 SUBOXONE (BUPRENORPHINE-NALOXONE) 8MG-2MG FILM Satb 08:00:00 EST 2020 Fri Feb 07:59:00 EST 2020 LAMOTRIGINE 25 MG TABLET Fri Feb 08:00:00 EST 2019 Fri Mar 08:59:00 EDT 2020 QUETIAPINE FUMARATE 100 MG TABLET Sat Feb 08:00:00 EST 2019 Fri Mar 08:59:00 EDT 2020 QUETIAPINE FUMARATE 50 MG TABLET, EXTENDED RELEASE Jie Jul 30 22:58:00 EST 2019 Mar 23:57:00 EDT 2020 SUBOXONE (BUPRENORPHINE-NALOXONE) 8MG-2MG FILM [...] EST 2020 Tue Mar 10 16:36:00 EDT 2019 QUETIAPINE FUMARATE 50 MG TABLET, EXTENDED RELEASE Sat 11 21:00:00 2019 10 21:59:00 EDT 2019 LAMOTRIGINE 25 MG TABLET Sat Feb 12 08:00:00 2019 11 08:59:00 EDT 2019 PRAZOSIN HCL 2 MG CAPSULE Satb 11 21:00:00 2019Aug 17 21:59:00 EDT 2019 SUBOXONE (BUPRENORPHINE-NALOXONE) 8MG-2MG FILM Sat Feb 10 23:24:00 2019 Jie Feb 20 23:23:00 EST 2019 TRAZODONE HYDROCHLORIDE 50 MG TABLET Sat Feb 10 23:24:00 2019Aug 17 00:23:00 EDT 2019 NARCAN (NALOXONE HCL) 4 MG/0.1 ML SPRAY Sat Feb 10 23:24:00 2019b 24 23:23:00 EST 2019 VENTOLIN HFA (ALBUTEROL SULFAT E) 0.09 MG/1 ACTUATION SUSPENSION Sat Feb 10 23:24:00 2019Aug 17 00:23:00 EDT 2019 NARCAN (NALOXONE HCL) 4 MG/0.1 ML SPRAY Mon Feb 10 23:24:00 2019b 24 23:23:00 EST 2019 PEPCID (FAMOTIDINE) 40 MG TABLET Sat Feb 10 23:24:00 2019Aug 17 00:23:00 EDT 2019 ORAJEL MOUTH SORE MEDICINE (BE NZALKONIUM CHLORIDE-BENZOCAINE/ZINC CHLORIDE) 0.02%-20%-0.1% GEL/JELLY Mon Feb 1 0 23:24:00 2019Aug 17 00:23:00 EDT 2020 MYLANTA (ALUMINUM HYDROXIDE-MA GNESIUM HYDROXIDE-SIMETHICONE) 200MG/5 ML-200MG/5 ML-20MG/5 ML SUSPENSION Mon Feb 10 23:24:00 2019 10 00:23:00 EDT 2020 MULTIVITAMIN TABLET Mon Feb 10 23:24:00 2019 10 00:23:00 EDT 2019 MELATONIN 5 MG CAPSULE Mon Feb 10 23:24:00 2019Aug 17 00:23:00 EDT 2020 ICY HOT (MENTHOL-METHYL SALICYLATE) 10%-30% CREAM Mon Feb 10 23:24:00 2019 10 00:23:00 EDT 2019 FIBER-LAX 625 MG TABLET Mon Feb 10 :24:2019 10 00:23:00 EDT 2019 CLARITIN (LORATADINE) 10 MG TABLET Mon Feb 10 :24:2019 10 00:23:00 EDT 2019 BENADRYL ALLERGY (DIPHENHYDRAM INE HYDROCHLORIDE) 25 MG TABLET Mon Feb 10 :24:00 2019 e Aug 17 00:23:00 EDT 2019 TUMS (CALCIUM CARBONATE) 500 MG TABLET, CHEWABLE Mon Feb 10 ::00 2019Aug 17 00:23:00 EDT 2019 GAS-X (SIMETHICONE) 80 MG TABLET, CHEWABLE Mon Feb 10 :24:00 2019Aug 17 00:23:00 EDT 2019 ACETAMINOPHEN (TYLENOL) 500 MG TABLET Mon Feb 10 ::2019Aug 17 00:23:00 EDT 2019 NICOTINE POLACRILEX 4 MG LOZENGE/BERTHA Mon Feb 10 :24:00 EST 2019 Mon Feb 24 23:23:00 EST 2019 MONTELUKAST SODIUM 10 MG TABLET Mon Feb 10 ::2019Aug 17 00:23:00 EDT 2020 ADVAIR DISKUS 250/50 (FLUTICAS ONE PROPIONATE-SALMETEROL XINAFOATE) 0.25MG/1 ACTUATION-0.05MG/1 ACTUATION DISK Mo n Feb 10 :24:2019 10 00:23:00 EDT 2020 HYDROXYZINE HCL 25 MG TABLET Mon Feb 10 :24:00 EST 2020 Sat Feb 15 :23:00 EST 2020 ZOFRAN (ONDANSETRON) 4 MG TABLET, DISINTEGRATING Mon Feb 10 :24:00 EST 2020 Sat Feb 15 :23:00 EST 2020 CATAPRES (CLONIDINE HYDROCHLORIDE) 0.1 MG TABLET Mon Feb 10 23:24:00 EST 2020 Sat Feb 15 23:23:00 EST 2020 XOPENEX (LEVALBUTEROL HYDROCHLORIDE) 1.25 MG /3 ML SOLUTION Mon Feb 10 23:24:00 2019 10 00:23 :00 ED2019 TRIPLE ANTIBIOTIC OINTMENT 40 0UNITS/1GM-3.5MG/1GM-5000UNITS/1GM OINTMENT SatJul 20:24:2019Aug 17 00:23:00 ED2019 PEPTO-BISMOL (BISMUTH SUBSALICYLATE) 262 MG/ 15 ML SUSPENSION SatJul 20:24:00 2019Aug 17 00:23 :00 EDT 2019 MILK OF MAGNESIA 400 MG/5 ML SOLUTION SatJul 20::00 2019Aug 17 00:23:00 EDT 2019 GUAIFENESIN 600 MG TABLET, EXTENDED RELEASE SatJul 20::2019Aug 17 00:23:00 EDT 2019 COLACE (DOCUSATE SODIUM) 100 MG CAPSULE, LIQ UID FILLED SatJul 20::00 2019Aug 17 00:23 :00 EDT 2019 BENADRYL ALLERGY (DIPHENHYDRAM INE HYDROCHLORIDE) 25 MG TABLET SatJul 20 23::00 2019Aug 17 00:23:00 EDT 2019 EUCERIN DAILY PROTECTION (LOTI ON, MULTI INGREDIENT) 2%-7.5%-4.5%-2.4%-4.8% LOTION SatJul 20 23:2 4:00 2019Aug 17 00:23:00 ED2019 EUCERIN DAILY PROTECTION (LOTI ON, MULTI INGREDIENT) 2%-7.5%-4.5%-2.4%-4.8% LOTION SatJul 19 10:0 5:00 2019Aug 15 11:04:00 EDT 2019 TRAZODONE HYDROCHLORIDE 50 MG TABLET SatJul 19 10:03:00 2019Aug 15 11:02:00 EDT 2019 ACETAMINOPHEN (TYLENOL) 500 MG TABLET SatJul 19 04:55:00 2019Aug 15 05:54:00 EDT 2019 GAS-X (SIMETHICONE) 80 MG TABLET, CHEWABLE Sat b 08 15:55:00 2019Aug 14 15:54:00 2019 TUMS (CALCIUM CARBONATE) 500 MG TABLET, CHEWABLE Sat Jul 18 15:55:00 2019Aug 14 15:54:00 EST 2020 BENADRYL ALLERGY (DIPHENHYDRAM INE HYDROCHLORIDE) 25 MG TABLET Sat Feb 08 15:55:00 EST 2019 Aug 14 15:54:00 EST 2020 BENADRYL ALLERGY (DIPHENHYDRAM INE HYDROCHLORIDE) 25 MG TABLET Sat Feb 08 15:55:[address] [facility] Aug 14 15:54:00 EST 2020 CLARITIN (LORATADINE) [...] EST 2019Aug 14 15:54 :00 EST 2019 NARCAN (NALOXONE HCL) 4 MG/0.1 ML SPRAY Sat Feb 08 15:55:00 EST 2019 Sat Feb 22 15:54:00 EST 2020 CATAPRES (CLONIDINE HYDROCHLORIDE) 0.1 MG TABLET Sat Feb 08 15:55:00 2019 Jie Feb 13 15:54:00 EST 2020 ZOFRAN (ONDANSETRON) 4 MG TABLET, DISINTEGRATING Sat Feb 08 15:55:00 2019 Jie Feb [...] EST 2019 Aug 14 15:54:00 EST 2020 SUBOXONE (BUPRENORPHINE-NALOXONE) 8MG-2MG FILM Sat Feb 08 15:55:00 EST 2020 Tue Feb 18 15:54:00 EST 2020 NARCAN (NALOXONE HCL) 4 MG/0.1 ML SPRAY Sat Feb 08 15:55:00 EST 2020 Sat Feb 22 15:54:00 EST 2020 MONTELUKAST SODIUM 10 MG TABLET Sat Feb 08 15:55:00 EST 2019Aug 14 15:54:00 EST 2020 NICOTINE POLACRILEX 4 MG LOZENGE/BERTHA Sat Feb 08 15:54:00 EST 2020 Sat Feb 22 15:53:00 EST 2020 NICOTINE POLACRILEX 4 MG LOZENGE/BERTHA Wed Feb 05 08:00:00 EST 2019 Wed Feb 07:59:00 EST 2020 MONTELUKAST SODIUM 10 MG TABLET SatJul 15 08:00:00 2019Aug 11 07:59:00 EST 2019 NARCAN (NALOXONE HCL) 4 MG/0.1 ML SPRAY SatJul 15 08:00:00 EST 2020 Wed Feb 07:59:00 EST 2020 SUBOXONE (BUPRENORPHINE-NALOXONE) 8MG-2MG FILM Jie Jul 16 08:00:00 EST 2020 Sun Feb 16 07:59:00 EST 2020 SUBOXONE (BUPRENORPHINE-NALOXONE) 4MG-1MG FILM SatJul 15 08:00:00 EST 2020 Jie Feb 06 07:59:00 EST 2020 VENTOLIN HFA (ALBUTEROL SULFAT E) 0.09 MG/1 ACTUATION SUSPENSION SatJul 15 08:00:00 EST 2020 d Aug 11 07:59:00 EST 2020 ADVAIR DISKUS 250/50 (FLUTICAS ONE PROPIONATE-SALMETEROL XINAFOATE) 0.25MG/1 ACTUATION-0.05MG/1 ACTUATION DISK Jul 15 08:00:00 2019Aug 11 07:59:00 EST 2020 HYDROXYZINE HCL [...] SPRAY SatJul 15 12:24:00 EST 2020 Wed Fe 12:23:00 EST 2020 XOPENEX (LEVALBUTEROL HYDROCHLORIDE) 1.25 MG /3 ML SOLUTION SatJul 15 12:24:00 2019Aug 11 12:23 :00 EST 2020 TRIPLE ANTIBIOTIC OINTMENT 40 0UNITS/1GM-3.5MG/1GM-5000UNITS/1GM OINTMENT SatJul 15 12:24:00 EST 2020 d Aug 11 12:23:00 EST 2020 PEPCID [...] LIQUID FILLED SatJul 15 12:24:00 2019 We Aug 11 12:23:00 EST 2020 [...] 15 12:24:00 2019Aug 11 12:23:00 EST 2020 BENADRYL ALLERGY (DIPHENHYDRAM INE HYDROCHLORIDE) 25 MG TABLET SatJul 15 12:24:2019Aug 11 12:23:00 2019 BENADRYL ALLERGY (DIPHENHYDRAM INE HYDROCHLORIDE) 25 MG TABLET SatJul 15 12:24:2019Aug 11 12:23:00 EST 2019 TUMS (CALCIUM CARBONATE) 500 MG TABLET, CHEWABLE SatJul 15 12:24:00 2019Aug 11 12:: EST 2019 GAS-X (SIMETHICONE) 80 MG TABLET, CHEWABLE SatJul 15 12:24:00 2019Aug 11 12:23:00 2019 ACETAMINOPHEN 500 MG CAPSULE SatJul 15 12:24:00 2019Aug 11 12::00 2019 NICODERM CQ (NICOTINE) 14 MG/24 HR [...] SUSPENSION SatJun 26 08:04:00 EST 2019 Fri Fe 08:03 :00 EST 2020 [...] 28 08:00:00 EST 2019Jun 29 07:59:00 EST 2020 [...] Jie Jun 25 08:00:00 2019Jul 02 07:59:00 EST 2019 SUBOXONE (BUPRENORPHINE-NALOXONE) 4MG-1MG FILM Jie Jun 25 08:00:00 EST 2020 Fri Jun 26 07:59:00 EST 2020 ADVAIR DISKUS 250/50 (FLUTICAS ONE PROPIONATE-SALMETEROL XINAFOATE) 0.25MG/1 ACTUATION-0.05MG/1 ACTUATION DISK u Jun 25 08:00:00 2019 Jie Feb 13 07:59:00 EST 2020 PROAIR HFA (ALBUTEROL SULFATE) 0.09 MG/1 ACTUATION SUSPENSION Jie Jun 25 08:00:00 2019 u Feb 13 07:59:00 EST 2020 NICOTINE 14 MG/24 HR PATCH, EXTENDED RELEASE SatJun 25 08:00:00 2019Jul 23 07:59:00 2019 Gabapentin 300 MG CAP Take two (2) capsules by mouth three times a day SatDec 22 00:00:00 2018 [facility] Sep 00:00 :00 2018 Prazosin HCl 1 MG CAP Take one (1) capsule by mouth at bedtime SatDec 22 00:00:00 2018 [facility] Sep 00:00 :00 2018 traZODone hydrochloride 100 MG TAB Take one (1) or two (2) tablets by mouth at bedtime, as needed. SatDec 22 00:00:00 2018 [facility] Sep 00:00:00 2018 Topamax 25 MG CAP Take one (1) caps ule by mouth twice a day SatDec 22 00:00:00 2018 [facility] Sep 00:00 :00 2018 Prazosin HCl 5 MG CAP Take one (1) capsule by mouth at bedtime SatDec 22 00:00:00 2018 [facility] Sep 00:00 :00 2018 hydrOXYzine Pamoate 50 MG CAP Take one (1) capsule by mouth twice a day, as needed SatDec 22 00:00:00 2018 [facility] Sep 00:00:00 2018 hydrOXYzine Pamoate 50 [...] HYDROCHLORIDE 100 MG TABLET SatSep 23 17:09:00 EDT 2018October 21 17:08:00 EDT 2018 ADVAIR DISKUS [...] OINTMENT SatAug 27 17:41:00 EDT 2018 We sep 17 17:40:00 EDT 2019 ZANTAC (RANITIDINE HYDROCHLORIDE) 150 [...] Active Concerns * Opioid abuse * Code: 2825049 * Start Date: SatJun 10 11:00:00 EST [...] * Alcohol use disorder, severe * Code: 50153126 * Start Date: SatJun 24 07:00:00 2019 * Text: * Severe nicotine withdrawal * Code: 45895935 * Start Date: SatJun 24 07:00:00 2019 * Text: * Stimulant use disorder * Code: 512153489 * Start Date: SatJun 24 07:00:00 2019 * Text: * Synthetic cannabinoid dependence * Code: 194380066 * Start Date: SatJul 15 07:00:00 2019 * Text: * Opioid use disorder, severe, dependence * Code: 53523217 * Start Date: SatJul 15 07:00:00 2019 * Text: * Current every day smoker * Code: 736903826 * Start Date: SatJul 15 07:00:00 2019 * Text: * Bipolar disorder with psychotic features * Code: 65188196 * Start Date: SatSep 29 08:00:00 EDT 2019 * Text: Resolved Concerns * Problem Addiction/Abstinence/Withdrawal * Code: USER-Addiction * Start Date: SatJan 31 08:00:00 ED2016 * End Date: null * Problem Social/Interpersonal/Recovery [...] Temperature 97.5 [DEGF] SatApr 04 11:09:00 EDT 2020 Temperature 36.4 SUSANA SatMar 11 6 11:09:00 [...] 36.3 SUSANA Satb 2 4 08:56:00 EST 2020 Heart Rate 86 /MIN SatAug 03 08:56:00 EST 2020 Systolic 123 MM[HG] Sat 24 0 8:56:00 EST 2020 Diastolic 70 MM[HG] Sat 24 08:56:00 EST 2019 Height 4 9 ft Sat 24 08: 56:00 EST 2019 Height 57 in Satb 24 08: 56:00 EST 2019 Height 144.8 cm Sat 24 08: 56:00 EST 2020 Weight Lbs [...] 25 10:12:00 EST 2020 Temperature 36.3 SUSANA Jie Jun 10 6 10:12:00 EST 2020 Heart Rate [...] 24 09:45: 00 2019 Temperature 98.0 [DEGF] [facility] Feb 07 12:39:00 EDT 2018 Temperature 36.7 SUSANA SatJan 10 12:39:00 EDT 2018 Heart Rate 69 /MIN SatFeb 07 12:39:00 EDT 2018 Respiration 14 /MIN SatJan 10 12:39:00 EDT 2018 SpO2 98 % SatFeb 07 12:39 :00 EDT 2018 Systolic 100 MM[HG] [facility] Feb 07 2:39:00 EDT 2018 Diastolic 59 MM[HG] [facility] Feb 07 12:39:00 EDT 2018
--- OUTSIDE RECORDS SUMMARY | 2021-03-23 20:23 | CCD ---
Author Author [facility] Organization [facility] Address Unknown Phone Unavailable Care Team Providers Care Product Steward Name Role Phone Munira DOMINGUEZ MD Unavailable Unavailable Munira DOMINGUEZ MD Unavailable Unavailable Munira DOMINGUEZ MD Unavailable Unavailable Munira DOMINGUEZ MD Unavailable Unavailable Munira DOMINGUEZ MD Unavailable Unavailable Munira DOMINGUEZ MD Unavailable Unavailable Chad MITCHELL MD Unavailable Unavailable Chad MITCHELL MD Unavailable Unavailable Chad MITCHELL MD Unavailable Unavailable Chad MITCHELL MD Unavailable Unavailable Chad MITCHELL MD Unavailable Unavailable Chad MITCHELL MD Unavailable Unavailable Chad MITCHELL MD Unavailable Unavailable Chad MITCHELL MD Unavailable Unavailable Chad MITCHELL MD Unavailable Unavailable Chad MITCHELL MD Unavailable Unavailable Chad MITCHELL MD Unavailable Unavailable Chad MITCHELL MD Unavailable Unavailable Chad MITCHELL MD Unavailable Unavailable Chad MITCHELL MD Unavailable Unavailable Chad MITCHELL MD Unavailable Unavailable Chad MITCHELL MD Unavailable Unavailable Chad MITCHELL MD Unavailable Unavailable Chad MITCHELL MD Unavailable Unavailable Chad MITCHELL MD Unavailable Unavailable Chad MITCHELL MD Unavailable Unavailable Chad MITCHELL MD Unavailable Unavailable Chad MITCHELL MD Unavailable Unavailable Chad MITCHELL MD Unavailable Unavailable Chad MITCHELL MD Unavailable Unavailable Chad MITCHELL MD Unavailable Unavailable Chad MITCHELL MD Unavailable Unavailable Chad MITCHELL MD Unavailable Unavailable Chad MITCHELL MD Unavailable Unavailable Chad MITCHELL MD Unavailable Unavailable Chad MITCHELL MD Unavailable Unavailable Chad MITCHELL MD Unavailable Unavailable Chad MITCHELL MD Unavailable Unavailable Chad MITCHELL MD Unavailable Unavailable Chad MITCHELL MD Unavailable Unavailable Chad MITCHELL MD Unavailable Unavailable Chad MITCHELL MD Unavailable Unavailable Chad MITCHELL MD Unavailable Unavailable Chad MITCHELL MD Unavailable Unavailable Chad MITCHELL MD Unavailable Unavailable Chad MITCHELL MD Unavailable Unavailable Chad MITCHELL MD Unavailable Unavailable Chad MITCHELL MD Unavailable Unavailable Chad MITCHELL MD Unavailable Unavailable Chad MITCHELL MD Unavailable Unavailable Chad MITCHELL MD Unavailable Unavailable Chad MITCHELL MD Unavailable Unavailable Chad MITCHELL MD Unavailable Unavailable Chad MITCHELL MD Unavailable Unavailable Chad MITCHELL MD Unavailable Unavailable Chad MITCHELL MD Unavailable Unavailable Chad MITCHELL MD Unavailable Unavailable Chad MITCHELL MD Unavailable Unavailable Chad MITCHELL MD Unavailable Unavailable Chad MITCHELL MD Unavailable Unavailable Chad MITCHELL MD Unavailable Unavailable Chad MITCHELL MD Unavailable Unavailable Chad MITCHELL MD Unavailable Unavailable Chad MITCHELL MD Unavailable Unavailable Chad MITCHELL MD Unavailable Unavailable Chad MITCHELL MD Unavailable Unavailable Chad MITCHELL MD Unavailable Unavailable Chad MITCHELL MD Unavailable Unavailable Chad MITCHELL MD Unavailable Unavailable Chad MITCHELL MD Unavailable Unavailable Chad MITCHELL MD Unavailable Unavailable Chad MITCHELL MD Unavailable Unavailable Chad MITCHELL MD Unavailable Unavailable Chad MITCHELL MD Unavailable Unavailable Chad MITCHELL MD Unavailable Unavailable Chad MITCHELL MD Unavailable Unavailable Chad MITCHELL MD Unavailable Unavailable Chad MITCHELL MD Unavailable Unavailable PIPASYULY MD Unavailable Unavailable PIPAS, YULY PONCE Unavailable Unavailable PIPAS, YULY PONCE Unavailable Unavailable PIPAS, YULY PONCE Unavailable Unavailable PIPAS, YULY PONCE Unavailable Unavailable Geiss, April DO Unavailable Unavailable Geiss, April DO Unavailable Unavailable Geiss, April DO Unavailable Unavailable Geiss, April DO Unavailable Unavailable Geiss, April DO Unavailable Unavailable Geiss, April DO Unavailable Unavailable Geiss, April DO Unavailable Unavailable Geiss, April DO Unavailable Unavailable Geiss, April DO Unavailable Unavailable Geiss, April DO Unavailable Unavailable Geiss, April DO Unavailable Unavailable Geiss, April DO Unavailable Unavailable Geiss, April DO Unavailable Unavailable Geiss, April DO Unavailable Unavailable Geiss, April DO Unavailable Unavailable Geiss, April DO Unavailable Unavailable Geiss, April DO Unavailable Unavailable Geiss, April DO Unavailable Unavailable Geiss, April DO Unavailable Unavailable Geiss, April DO Unavailable Unavailable Geiss, April DO Unavailable Unavailable Geiss, April DO Unavailable Unavailable Geiss, April DO Unavailable Unavailable Geiss, April DO Unavailable Unavailable Geiss, April DO Unavailable Unavailable Geiss, April DO Unavailable Unavailable Geiss, April DO Unavailable Unavailable Geiss, April DO Unavailable Unavailable Geiss, April DO Unavailable Unavailable Geiss, April DO Unavailable Unavailable Geiss, April DO Unavailable Unavailable Geiss, April DO Unavailable Unavailable Geiss, April DO Unavailable Unavailable Geiss, April DO Unavailable Unavailable Geiss, April DO Unavailable Unavailable Geiss, April DO Unavailable Unavailable Geiss, April DO Unavailable Unavailable Geiss, April DO Unavailable Unavailable Geiss, April DO Unavailable Unavailable Geiss, April DO Unavailable Unavailable Geiss, April DO Unavailable Unavailable Geiss, April DO Unavailable Unavailable Geiss, April DO Unavailable Unavailable Geiss, April DO Unavailable Unavailable Geiss, April DO Unavailable Unavailable Geiss, April DO Unavailable Unavailable Geiss, April DO Unavailable Unavailable Geiss, April DO Unavailable Unavailable Geiss, April DO Unavailable Unavailable Geiss, April DO Unavailable Unavailable Geiss, April DO Unavailable Unavailable Geiss, April DO Unavailable Unavailable Geiss, April DO Unavailable Unavailable Geiss, April DO Unavailable Unavailable Geiss, April DO Unavailable Unavailable Geiss, April DO Unavailable Unavailable Geiss, April DO Unavailable Unavailable Geiss, April DO Unavailable Unavailable Geiss, April DO Unavailable Unavailable Greenky, S Rex MD Unavailable Unavailable Greenky, S Rex MD Unavailable Unavailable Greenky, S Rex MD Unavailable Unavailable Greenky, S Rex MD Unavailable Unavailable Greenky, S Rex MD Unavailable Unavailable Greenky, S Rex MD Unavailable Unavailable Greenky, S Rex MD Unavailable Unavailable Greenky, S Rex MD Unavailable Unavailable Greenky, S Rex MD Unavailable Unavailable Greenky, S Rex MD Unavailable Unavailable Greenky, S Rex MD Unavailable Unavailable Greenky, S Rex MD Unavailable Unavailable Greenky, S Rex MD Unavailable Unavailable Greenky, S Rex MD Unavailable Unavailable Greenky, S Rex MD Unavailable Unavailable Greenky, S Rex MD Unavailable Unavailable Greenky, S Rex MD Unavailable Unavailable Greenky, S Rex MD Unavailable Unavailable Greenky, S Rex MD Unavailable Unavailable Greenky, S Rex MD Unavailable Unavailable Greenky, S Rex MD Unavailable Unavailable Greenky, S Rex MD Unavailable Unavailable Greenky, S Rex MD Unavailable Unavailable Greenky, S Rex MD Unavailable Unavailable Greenky, S Rex MD Unavailable Unavailable Greenky, S Rex MD Unavailable Unavailable Greenky, S Rex MD Unavailable Unavailable Greenky, S Rex MD Unavailable Unavailable Greenky, S Rex MD Unavailable Unavailable Greenky, S Rex MD Unavailable Unavailable Greenky, S Rex MD Unavailable Unavailable Greenky, S Rex MD Unavailable Unavailable Greenky, S Rex MD Unavailable Unavailable Greenky, S Rex MD Unavailable Unavailable Greenky, S Rex MD Unavailable Unavailable Greenky, S Rex MD Unavailable Unavailable Greenky, S Rex MD Unavailable Unavailable Greenky, S Rex MD Unavailable Unavailable Greenky, S Rex MD Unavailable Unavailable Greenky, S Rex MD Unavailable Unavailable Greenky, S Rex MD Unavailable Unavailable Greenky, S Rex MD Unavailable Unavailable Greenky, S Rex MD Unavailable Unavailable Greenky, S Rex MD Unavailable Unavailable Greenky, S Rex MD Unavailable Unavailable Greenky, S Rex MD Unavailable Unavailable Greenky, S Rex MD Unavailable Unavailable Greenky, S Rex MD Unavailable Unavailable Greenky, S Rex MD Unavailable Unavailable Greenky, S Rex MD Unavailable Unavailable Greenky, S Rex MD Unavailable Unavailable Greenky, S Rex MD Unavailable Unavailable Greenky, S Rex MD Unavailable Unavailable Greenky, S Rex MD Unavailable Unavailable Greenky, S Rex MD Unavailable Unavailable Greenky, S Rex MD Unavailable Unavailable Greenky, S Rex MD Unavailable Unavailable Greenky, S Rex MD Unavailable Unavailable Greenky, S Rex MD Unavailable Unavailable Greenky, S Rex MD Unavailable Unavailable Greenky, S Rex MD Unavailable Unavailable Greenky, S Rex MD Unavailable Unavailable Greenky, S Rex MD Unavailable Unavailable Greenky, S Rex MD Unavailable Unavailable Greenky, S Rex MD Unavailable Unavailable Greenky, S Rex MD Unavailable Unavailable Greenky, S Rex MD Unavailable Unavailable Greenky, S Rex MD Unavailable Unavailable Greenky, S Rex MD Unavailable Unavailable Greenky, S Rex MD Unavailable Unavailable Greenky, S Rex MD Unavailable Unavailable Greenky, S Rex MD Unavailable Unavailable Greenky, S Rex MD Unavailable Unavailable Greenky, S Rex MD Unavailable Unavailable Greenky, S Rex MD Unavailable Unavailable Greenky, S Rex MD Unavailable Unavailable Greenky, S Rex MD Unavailable Unavailable Greenky, S Rex MD Unavailable Unavailable Greenky, S Rex MD Unavailable Unavailable Greenky, S Rex MD Unavailable Unavailable Greenky, S Rex MD Unavailable Unavailable Greenky, S Rex MD Unavailable Unavailable Greenky, S Rex MD Unavailable Unavailable Greenky, S Rex MD Unavailable Unavailable Greenky, S Rex MD Unavailable Unavailable Greenky, S Rex MD Unavailable Unavailable Greenky, S Rex MD Unavailable Unavailable Greenky, S Rex MD Unavailable Unavailable Greenky, S Rex MD Unavailable Unavailable Schroeder, P Mookie Unavailable Unavailable Schroeder, P Mookie Unavailable Unavailable Schroeder, P Mookie Unavailable Unavailable Schroeder, P Mookie Unavailable Unavailable Schroeder, P Mookie Unavailable Unavailable Schroeder, P Mookie Unavailable Unavailable Schroeder, P Mookie Unavailable Unavailable Schroeder, P Mookie Unavailable Unavailable Schroeder, P Mookie Unavailable Unavailable Schroeder, P Mookie Unavailable Unavailable Schroeder, P Mookie Unavailable Unavailable Schroeder, P Mookie Unavailable Unavailable Schroeder, P Mookie Unavailable Unavailable Schroeder, P Mookie Unavailable Unavailable Schroeder, P Mookie Unavailable Unavailable Schroeder, P Mookie Unavailable Unavailable Schroeder, P Mookie Unavailable Unavailable Schroeder, P Mookie Unavailable Unavailable Schroeder, P Mookie Unavailable Unavailable Schroeder, P Mookie Unavailable Unavailable Schroeder, P Mookie Unavailable Unavailable Schroeder, P Mookie Unavailable Unavailable Schroeder, P Mookie Unavailable Unavailable Schroeder, P Mookie Unavailable Unavailable Cshroeder, P Mookie Unavailable Unavailable Schroeder, P Mookie Unavailable Unavailable Schroeder, P Mookie Unavailable Unavailable Schroeder, P Mookie Unavailable Unavailable Schroeder, P Mookie Unavailable Unavailable Schroeder, P Mookie Unavailable Unavailable Schroeder, P Mookie Unavailable Unavailable Schroeder, P Mookie Unavailable Unavailable Schroeder, P Mookie Unavailable Unavailable Schroeder, P Mookie Unavailable Unavailable Schroeder, P Mookie Unavailable Unavailable Schroeder, P Mookie Unavailable Unavailable Schroeder, P Mookie Unavailable Unavailable Schroeder, P Mookie Unavailable Unavailable Schroeder, P Mookie Unavailable Unavailable Schroeder, P Mookie Unavailable Unavailable Schroeder, P Mookie Unavailable Unavailable Schroeder, P Mookie Unavailable Unavailable Schroeder, P Mookie Unavailable Unavailable Schroeder, P Mookie Unavailable Unavailable Schroeder, P Mookie Unavailable Unavailable Schroeder, P Mookie Unavailable Unavailable Schroeder, P Mookie Unavailable Unavailable Schroeder, P Mookie Unavailable Unavailable Schroeder, P Mookie Unavailable Unavailable Schroeder, P Mookie Unavailable Unavailable Schroeder, P Mookie Unavailable Unavailable Schroeder, P Mookie Unavailable Unavailable Schroeder, P Mookie Unavailable Unavailable Schroeder, P Mookie Unavailable Unavailable Schroeder, P Mookie Unavailable Unavailable Schroeder, P Mookie Unavailable Unavailable Schroeder, P Mookie Unavailable Unavailable Schroeder, P Mookie Unavailable Unavailable Schroeder, P Mookie Unavailable Unavailable Schroeder, P Mookie Unavailable Unavailable Schroeder, P Mookie Unavailable Unavailable Schroeder, P Mookie Unavailable Unavailable Schroeder, P Mookie Unavailable Unavailable Schroeder, P Mookie Unavailable Unavailable Schroeder, P Mookie Unavailable Unavailable Schroeder, P Mookie Unavailable Unavailable Schroeder, P Mookie Unavailable Unavailable Schroeder, P Mookie Unavailable Unavailable Schroeder, P Mookie Unavailable Unavailable Schroeder, P Mookie Unavailable Unavailable Schroeder, P Mookie Unavailable Unavailable Schroeder, P Mookie Unavailable Unavailable Schroeder, P Mookie Unavailable Unavailable Schroeder, P Mookie Unavailable Unavailable Schroeder, P Mookie Unavailable Unavailable Padmaja Kelly MD Unavailable Unavailable Padmaja Kelly MD Unavailable Unavailable Padmaja Kelly MD Unavailable Unavailable Padmaja Kelly MD Unavailable Unavailable Padmaja Kelly MD Unavailable Unavailable Padmaja Kelly MD Unavailable Unavailable Padmaja Kelly MD Unavailable Unavailable Padmaja Kelly MD Unavailable Unavailable Padmaja Kelly MD Unavailable Unavailable KellyPadmaja cornejo MD Unavailable Unavailable KellyPadmaja cornejo MD Unavailable Unavailable KellyPadmaja cornejo MD Unavailable Unavailable KellyPadmaja cornejo MD Unavailable Unavailable KellyPadmaja cornejo MD Unavailable Unavailable KellyPadmaja cornejo MD Unavailable Unavailable SUPPLE, SEJAL Unavailable Unavailable Reagan VARGAS MD Unavailable Unavailable Reagan VARGAS MD Unavailable Unavailable Reagan VARGAS MD Unavailable Unavailable Reagan VARGAS MD Unavailable Unavailable Reagan VARGAS MD Unavailable Unavailable Reagan VARAGS MD Unavailable Unavailable Reagan VARGAS MD Unavailable Unavailable Reagan VARGAS MD Unavailable Unavailable Reagan VARGAS MD Unavailable Unavailable Reagan VARGAS MD Unavailable Unavailable Reagan VARGAS MD Unavailable Unavailable Reagan VARGAS MD Unavailable Unavailable Reagan VARGAS MD Unavailable Unavailable Reagan VARGAS MD Unavailable Unavailable Reagan VARGAS MD Unavailable Unavailable Reagan VARGAS MD Unavailable Unavailable Reagan VARGAS MD Unavailable Unavailable Reagan VARGAS MD Unavailable Unavailable Reagan VARGAS MD Unavailable Unavailable Reagan VARGAS MD Unavailable Unavailable Reagan VARGAS MD Unavailable Unavailable Reagan VARGAS MD Unavailable Unavailable Reagan VARGAS MD Unavailable Unavailable Reagan VARGAS MD Unavailable Unavailable Reagan VARGAS MD Unavailable Unavailable Reagan VARGAS MD Unavailable Unavailable Reagan VARGAS MD Unavailable Unavailable Mariama Lorenz MD Unavailable Unavailable Mariama Lorenz MD Unavailable Unavailable Mariama Lorenz MD Unavailable Unavailable Mariama Lorenz MD Unavailable Unavailable Mariama Lorenz MD Unavailable Unavailable Mariama Lorenz MD Unavailable Unavailable Mariama Lorenz MD Unavailable Unavailable Mariama Lorenz MD Unavailable Unavailable Mariama Lorenz MD Unavailable Unavailable Mariama Lorenz MD Unavailable Unavailable Mariama Lorenz MD Unavailable Unavailable Mariama Lorenz MD Unavailable Unavailable Mariama Lorenz MD Unavailable Unavailable Mariama Lorenz MD Unavailable Unavailable Mariama Lorenz MD Unavailable Unavailable Jimmie LEE MD Unavailable Unavailable Jimmie LEE MD Unavailable Unavailable Jimmie LEE MD Unavailable Unavailable Jimmie LEE MD Unavailable Unavailable Jimmie LEE MD Unavailable Unavailable Jimmie LEE MD Unavailable Unavailable Jimmie LEE MD Unavailable Unavailable Jimmie LEE MD Unavailable Unavailable Jimmie LEE MD Unavailable Unavailable LOJimmie BERMUDEZ MD Unavailable Unavailable LOJimmie BERMUDEZ MD Unavailable Unavailable LOZNERJimmie MD Unavailable Unavailable LOZNJimmie FAJARDO MD Unavailable Unavailable LOZNJimmie FAJARDO MD Unavailable Unavailable LOZNJimmie FAJARDO MD Unavailable Unavailable LOZNJimmie FAJARDO MD Unavailable Unavailable LOZNJimmie FAJARDO MD Unavailable Unavailable LOZNJimmie FAJARDO MD Unavailable Unavailable LOZNJimmie FAJARDO MD Unavailable Unavailable LOZNJimmie FAJARDO MD Unavailable Unavailable LOZNJimmie FAJARDO MD Unavailable Unavailable LOZNJimmie FAJARDO MD Unavailable Unavailable LOZNJimmie FAJARDO MD Unavailable Unavailable LOZNJimmie FAJARDO MD Unavailable Unavailable LOJimmie BERMUDEZ MD Unavailable Unavailable LOZNJimmie FAJARDO MD Unavailable Unavailable LOJimmie BERMUDEZ MD Unavailable Unavailable LOJimmie BERMUDEZ MD Unavailable Unavailable LOJimmie BERMUDEZ MD Unavailable Unavailable LOJimmie BERMUDEZ MD Unavailable Unavailable LOJimmie BERMUDEZ MD Unavailable Unavailable LOJimmie BERMUDEZ MD Unavailable Unavailable LOJimmie BERMUDEZ MD Unavailable Unavailable LOJimmie BERMUDEZ MD Unavailable Unavailable Jimmie LEE MD Unavailable Unavailable Jimmie LEE MD Unavailable Unavailable LOJimmie BERMUDEZ MD Unavailable Unavailable Jimmie LEE MD Unavailable Unavailable LOJimmie BERMUDEZ MD Unavailable Unavailable LOJimmie BERMUDEZ MD Unavailable Unavailable Jimmie LEE MD Unavailable Unavailable Jimmie LEE MD Unavailable Unavailable Jimmie LEE MD Unavailable Unavailable Jimmie LEE MD Unavailable Unavailable Jimmie LEE MD Unavailable Unavailable Jimmie LEE MD Unavailable Unavailable Jimmie LEE MD Unavailable Unavailable Jimmie LEE MD Unavailable Unavailable Jimmie LEE MD Unavailable Unavailable Jimmie LEE MD Unavailable Unavailable Jimmie LEE MD Unavailable Unavailable Jimmie LEE MD Unavailable Unavailable Jimmie LEE MD Unavailable Unavailable Jimmie LEE MD Unavailable Unavailable Jimmie LEE MD Unavailable Unavailable Jimmie LEE MD Unavailable Unavailable Jimmie LEE MD Unavailable Unavailable Jimmie LEE MD Unavailable Unavailable Jimmie LEE MD Unavailable Unavailable Jimmie LEE MD Unavailable Unavailable Jimmie LEE MD Unavailable Unavailable Jimmie LEE MD Unavailable Unavailable Jimmie LEE MD Unavailable Unavailable Jimmie LEE MD Unavailable Unavailable Jimmie LEE MD Unavailable Unavailable LOZNSCOTTY, Jimmie BRUCE MD Unavailable Unavailable Flintrop, Chad Schmitt MD Unavailable Unavailable Flintrop, Chad Schmitt MD Unavailable Unavailable Flintrop, Chad Schmitt MD Unavailable Unavailable Flintrop, Chad Schmitt MD Unavailable Unavailable Flintrop, Chad Schmitt MD Unavailable Unavailable Flintrop, Chad Schmitt MD Unavailable Unavailable Flintrop, Chad Schmitt MD Unavailable Unavailable Flintrop, Chad Schmitt MD Unavailable Unavailable Flintrop, Chad Schmitt MD Unavailable Unavailable Flintrop, Chad Schmitt MD Unavailable Unavailable Flintrop, Chad Schmitt MD Unavailable Unavailable Flintrop, Chad Schmitt MD Unavailable Unavailable Flintrop, Chad Schmitt MD Unavailable Unavailable Flintrop, Chad Schmitt MD Unavailable Unavailable Flintrop, Chad Schmitt MD Unavailable Unavailable Flintrop, Chad Schmitt MD Unavailable Unavailable Flintrop, Chad Schmitt MD Unavailable Unavailable Flintrop, Chad Schmitt MD Unavailable Unavailable Flintrop, Chad Schmitt MD Unavailable Unavailable Flintrop, Chad Schmitt MD Unavailable Unavailable Flintrop, Chad Schmitt MD Unavailable Unavailable Flintrop, Chad Schmitt MD Unavailable Unavailable Flintrop, Chad Schmitt MD Unavailable Unavailable Flintrop, Chad Schmitt MD Unavailable Unavailable Flintrop, Chad Schmitt MD Unavailable Unavailable Flintrop, Chad Schmitt MD Unavailable Unavailable Flintrop, Chad Schmitt MD Unavailable Unavailable Flintrop, Chad Schmitt MD Unavailable Unavailable Flintrop, Chad Schmitt MD Unavailable Unavailable Flintrop, Chad Schmitt MD Unavailable Unavailable Flintrop, Chad Schmitt MD Unavailable Unavailable Flintrop, Chad Schmitt MD Unavailable Unavailable Flintrop, Chad Schmitt MD Unavailable Unavailable Flintrop, Chad Schmitt MD Unavailable Unavailable Flintrop, Chad Schmitt MD Unavailable Unavailable Flintrop, Chad Schmitt MD Unavailable Unavailable Flintrop, Chad Schmitt MD Unavailable Unavailable Flintrop, Chad Schmitt MD Unavailable Unavailable Flintrop, Chad Schmitt MD Unavailable Unavailable Flintrop, Chad Schmitt MD Unavailable Unavailable Flintrop, Chad Schmitt MD Unavailable Unavailable Flintrop, Chad Schmitt MD Unavailable Unavailable Flintrop, Chad Schmitt MD Unavailable Unavailable Flintrop, Chad Schmitt MD Unavailable Unavailable Flintrop, Chad Schmitt MD Unavailable Unavailable Flintrop, Chad Schmitt MD Unavailable Unavailable Flintrop, Chad Schmitt MD Unavailable Unavailable Flintrop, Chad Schmitt MD Unavailable Unavailable Flintrop, Chad Schmitt MD Unavailable Unavailable Flintrop, Chad Schmitt MD Unavailable Unavailable Flintrop, Chad Schmitt MD Unavailable Unavailable Flintrop, Chad Schmitt MD Unavailable Unavailable [place]rop, Chad Schmitt MD Unavailable Unavailable [place]rop, Chad Schmitt MD Unavailable Unavailable Flintrop, hCad Schmitt MD Unavailable Unavailable Flintrop, Chad Schmitt MD Unavailable Unavailable [place]rop, Chad Schmitt MD Unavailable Unavailable [place]rop, Chad Schmitt MD Unavailable Unavailable [place]rop, Chad Schmitt MD Unavailable Unavailable Flintrop, Chad Schmitt MD Unavailable Unavailable [place]rop, Chad Schmitt MD Unavailable Unavailable [place]rop, Chad Schmitt MD Unavailable Unavailable [place]rop, Chad Schmitt MD Unavailable Unavailable Flintrop, Chad Schmitt MD Unavailable Unavailable [place]rop, Chad Schmitt MD Unavailable Unavailable [place]rop, Chad Schmitt MD Unavailable Unavailable [place]rop, Chad Schmitt MD Unavailable Unavailable [place]rop, Chad Schmitt MD Unavailable Unavailable [place]rop, Chad Schmitt MD Unavailable Unavailable [place]rop, Chad Schmitt MD Unavailable Unavailable [place]rop, Chad Schmitt MD Unavailable Unavailable [place]rop, Chad Schmitt MD Unavailable Unavailable [place]rop, Chad Schmitt MD Unavailable Unavailable [place]rop, Chad Schmitt MD Unavailable Unavailable [place]rop, Chad Schmitt MD Unavailable Unavailable [place]rop, Chad Schmitt MD Unavailable Unavailable [place]rop, Chad Schmitt MD Unavailable Unavailable FISHER, OLUMUYIWA Unavailable Unavailable FISHER, OLUMUYIWA Unavailable Unavailable FISHER, [place]UM[place]IWA Unavailable Unavailable FISHER, [place]WA Unavailable Unavailable FISHER, [place] Unavailable Unavailable Milo Medley MD Unavailable Unavailable Milo Medley MD Unavailable Unavailable Milo Medley MD Unavailable Unavailable Milo Medley MD Unavailable Unavailable Milo Medley MD Unavailable Unavailable Milo Medley MD Unavailable Unavailable Milo Medley MD Unavailable Unavailable Milo Medley MD Unavailable Unavailable Milo Medley MD Unavailable Unavailable Milo Medley MD Unavailable Unavailable Milo Medley MD Unavailable Unavailable Milo Medley MD Unavailable Unavailable Milo Medley MD Unavailable Unavailable Milo Medley MD Unavailable Unavailable Jazmín Tejada MD Unavailable Unavailable Jazmín Tejada MD Unavailable Unavailable Jazmín Tejada MD Unavailable Unavailable Jazmín Tejada MD Unavailable Unavailable Jazmín Tejada MD Unavailable Unavailable Jazmín Tejada MD Unavailable Unavailable Jazmín Tejada MD Unavailable Unavailable Jazmín Tejada MD Unavailable Unavailable Jazmín Tejada MD Unavailable Unavailable Jazmín Tejada MD Unavailable Unavailable Jazmín Tejada MD Unavailable Unavailable Jazmín Tejada MD Unavailable Unavailable Jazmín Tejaad MD Unavailable Unavailable Jazmín Tejada MD Unavailable Unavailable Jazmín Tejada MD Unavailable Unavailable Jazmín Tejada MD Unavailable Unavailable Jazmín Tejada MD Unavailable Unavailable Jazmín Tejada MD Unavailable Unavailable Jazmín Tejada MD Unavailable Unavailable Jamzín Tejada MD Unavailable Unavailable Jazmín Tejada MD Unavailable Unavailable Jazmín Tejada MD Unavailable Unavailable Jazmín Tejada MD Unavailable Unavailable Jazmín Tejada MD Unavailable Unavailable Jazmín Tejada MD Unavailable Unavailable Jazmín Tejada MD Unavailable Unavailable Jazmín Tejada MD Unavailable Unavailable Jazmín Tejada MD Unavailable Unavailable Jazmín Tejada MD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 (applies to non-numeric results) [facility] (Danial Sahu MD) Laboratory test finding (navigational concept) 0.0 % 0 -0 Normal (applies to non- numeric results) [facility] (Danial Sahu MD) Laboratory test finding (navigational concept) 11.5 10 1 .5-8.5 Above high normal [facility] (Danial Sahu MD) Laboratory test finding (navigational concept) 0.4 % 0 -3.0 Normal (applies to non-numeric results) [facility] (Danial Sahu MD) Laboratory test finding (navigational concept) 2.1 10 1 .5-5.0 Normal (applies to non-numeric results) [facility] (Danial Sahu MD) Laboratory test finding (navigational concept) 0.5 10 0 .0-0.8 Normal (applies to non-numeric results) [facility] (Danial Sahu MD) Laboratory test finding (navigational concept) 0.1 10 0 .0-0.5 Normal (applies to non-numeric results) [facility] (Danial Sahu MD) Laboratory test finding (navigational concept) 0.1 10 0 .0-0.2 Normal (applies to non-numeric results) [facility] (Danial Sahu MD) ID Date Data Source [id number] 2021 10:22:36 AM EDT [facility] NT INFORMATIONPatient MRN Name Date of Age Gend*PT [id number] Denisha Harding 1990 31 years F EDPT Location Admission Date/Time Visit ID Attending [id number] 01/05/21 1444 --- --- EPI ID CSN Admitting Provider [id number] ---Attestation signed by Gabrielle Steele MD at 2021 10:22 CHELSEA Attestations:Attestation Type: Mid-Level: SUPERVISED APC: Based on the medical record thecare appears appropriateGabrielle Steele MD 10:22 AM ED Provider in Triage NotePatient Name: Denisha Fong and Time of Assessment: 01/05/21, 12:45 PMChief ComplaintPatient presents with Abdominal Pain per ems "Coming in from [email or web address] for abdominal pain and constipation. perEMS "last bowel movement 3 weeks ago" pt denies n/v ConstipationBrief HPI: 31 years female, coming from [place] (opiod disorder-no newmedications)Some abdominal cramping, no bowel movement in 3 weeks per patientUsing Senna Miralas without improvementPhysical exam:Vitals: 01/05/21 1244BP: 108/71BP Location: Right lower armPatient Position: SittingPulse: 55Resp: 18Temp: 97 FTempSrc: TympanicSpO2: 99%VSSAmbulatoryNontoxPreliminary Plan:Labs, XRThis note was electronically signed by JUAN CARLOS Johnson, 01/05/21, 12:45 PM.ED CourseERLINDA Johnson- Physician AssistantPippa Elizondo Name Value Range Interpretation Code Description Data Judith rce(s) Supporting Document(s) ID Date Data Source [id number] 01/05/2021 08:11:33 PM EDT [facility] NT INFORMATIONPatient MRN Name Date of Age Gend*PT [id number] Denisha Harding 1990 31 years F EDPT Location Admission Date/Time Visit ID Attending [id number] 01/05/21 1444 --- --- EPI ID CSN Admitting Provider [id number] ---Provider in Triage NotesED Provider in Triage NotePatient Name: Denisha HardingPatient and Time of Assessment: 01/05/21, 12:45 PMChief ComplaintPatient presents with Abdominal Pain per ems "[facility]. perEMS "last bowel movement 3 weeks ago" pt denies n/v ConstipationBrief HPI: 31 years female, coming from [facility] (opiod disorder-no newmedications)Some abdominal cramping, no bowel movement in 3 weeks per patientUsing Senna Miralas without improvementPhysical exam:Vitals: 01/05/21 1244BP: 108/71BP Location: Right lower armPatient Position: SittingPulse: 55Resp: 18Temp: 97 FTempSrc: TympanicSpO2: 99%VSSAmbulatoryNontoxPreliminary Plan:Labs, XRThis note was electronically signed by JUAN CARLOS Johnson, 01/05/21, 12:45 PM.ED CourseERLINDA Johnson- Physician AssistantHistory of Present IllnessChief ComplaintPatient presents with Abdominal Pain per ems "Coming [facility] from [facility] for abdominal pain and constipation. perEMS "last bowel movement 3 weeks ago" pt denies n/v ConstipationPatient [facility] [place] [facility] was using [facility] - x 8 days, prior to that shewas seeking treatment for heroin use. No fevers. No chills. She has not movedher bowels in 3 weeks. Patient states that she has IBS with constipation andthis isn't abnormal for her. She has tried miralax, sennaHistoryPast Medical History:Diagnosis Date Asthma Bipolar disorder with psychotic features 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 Collapse of lung 03/11/2018 Empyema lung 03/12/2018 Gestational diabetes 11/05/2012 History of drug abuse IBS (irritable bowel syndrome) Nephrotic syndrome Ovarian cyst Pleural effusion on right 03/11/2018 Rh negative state in antepartum period 09/21/2012 Sepsis due to group A Streptococcus 03/11/2018 UTI (urinary tract infection) 03/11/2018Past Surgical History:Procedure Laterality Date SECTION error LUNG DECORTICATION Right 03/12/2018 Procedure: THORACOSCOPY W PULMONARY DECORTICATION RIGHT LUNG, BRONCHOSCOPY;Surgeon: Brant Headley MD; Laterality: Right; MD BOOKED AT 1230 WITHIN 1 HOURMD AVAIL NOW uterine ablationFamily HistoryProblem Relation Age of Onset Diabetes Mother Diabetes Father Stroke Father Diabetes Paternal GrandmotherSocial HistoryTobacco Use Smoking status: Current Every Day Smoker Packs/day: 1.00 Years: 15.00 Pack years: 15.00 Types: Cigarettes Last attempt to quit: 08/14/2018 Years since quittin.3 Smokeless tobacco: Never Used Tobacco comment: declinedSubstance Use Topics Alcohol use: No Drug use: Not Currently Types: Marijuana, IV Comment: santiago valle, ionROSReview of SystemsConstitutional: Negative for chills and fever.HENT: Negative for congestion and sore throat.Eyes: Negative for pain.Respiratory: Negative for cough, chest tightness and shortness of breath.Cardiovascular: Negative for chest pain and palpitations.Gastrointestinal: Positive for constipation. Negative for abdominal pain,diarrhea, nausea and vomiting.Genitourinary: Negative for difficulty urinating, dysuria, flank pain andhematuria.Musculoskeletal: Negative for back pain.Skin: Negative for rash.Neurological: Negative for dizziness, syncope, light-headedness and headaches.All other systems reviewed and are negative.Physical ExamBP 106/68 (BP Location: Left lower arm, Patient Position: Lying) | Pulse 55 |Temp 97 F (Tympanic) | Resp 18 | SpO2 98%Physical ExamVitals and nursing note reviewed.Constitutional: General: She is not in acute distress. Appearance: She is well-developed. She is not diaphoretic.HENT: Head: Normocephalic and atraumatic. Nose: Nose normal. Mouth/Throat: Pharynx: No oropharyngeal exudate.Eyes: General: No scleral icterus. Conjunctiva/sclera: Conjunctivae normal.Cardiovascular: Rate and Rhythm: Normal rate and regular rhythm. Heart sounds: Normal heart sounds. No murmur heard.No friction rub. No gallop.Pulmonary: Effort: Pulmonary effort is normal. No respiratory distress. Breath sounds: Normal breath sounds. No stridor. No wheezing, rhonchi orrales.Chest: Chest wall: No tenderness.Abdominal: General: Bowel sounds are normal. There is no distension. Palpations: Abdomen is soft. Tenderness: There is no abdominal tenderness. There is no guarding orrebound. Hernia: No hernia is present.Genitourinary: Comments: Deployment Engineer present, no stool in rectal vault.Musculoskeletal: General: No tenderness. Normal range of motion. Cervical back: Normal range of motion and neck supple.Lymphadenopathy: Cervical: No cervical adenopathy.Skin: General: Skin is warm and dry. Coloration: Skin is not pale. Findings: No rash.Neurological: Mental Status: She is alert and oriented to person, place, and time. Deep Tendon Reflexes: Reflexes are normal and symmetric.Psychiatric: Behavior: Behavior normal.ED CourseED Course as of Jan 05Jan 05 Patient seen and examined, reviewed her lab work and x-ray results. Shedoes not have an acute bowel obstruction. Rectal exam was performed in thepresence of soaping machine back tender, and there is no stool palpable in the rectal vault.Patient will be given a course of mag citrate she can continue the senna and canfollow-up with her primary care provider. Strict return instructions provided. [OA]ED Course User Index[OA] Mayte Kelly, MDProceduresMDMNumber of Diagnoses or Management OptionsAmount and/or Complexity of Data ReviewedClinical lab tests: ordered and reviewedTests in the radiology section of CPT : ordered and reviewedTests in the medicine section of CPT : ordered and reviewedIndependent visualization of images, tracings, or specimens: yesRisk of Complications, Morbidity, and/or MortalityPresenting problems: moderateDiagnostic procedures: moderateManagement options: mode ratePatient ProgressPatient progress: stableResults for orders placed or performed during the hospital encounter of 01/05/21Comprehensive metabolic panelResult Value Ref Range Sodium 141 136 - 145 mmol/L Potassium 4.3 3.6 - 5.2 mmol/L Chloride 110 (H) 100 - 108 mmol/L CO2 27 22 - 31 mmol/L Anion Gap 4 (L) 7 - 16 mmol/L Urea nitrogen 22 7 - 24 mg/dL Creatinine 1.14 (H) 0.60 - 1.00 mg/dL BUN/Creatinine Ratio 19.3 10.0 - 20.0 RATIO GLUCOSE 80 70 - 99 mg/dL Calcium 8.4 8.4 - 10.2 mg/dL Protein, Total 7.1 6.4 - 8.2 g/dL Albumin 3.4 (L) 3.5 - 4.6 g/dL Globulin 3.7 2.7 - 4.3 g/dL Alb/Glob ratio 0.9 RATIO Alkaline Phosphatase 80 45 - 117 U/L Bilirubin, Total 0.2 0.0 - 1.0 mg/dL AST 25 11 - 39 U/L ALT 41 12 - 78 U/L GFR MDRD Non Af Amer 55 (L) >59 ml/min/1.73m2 GFR MDRD Af Amer >60 > 59 ml/min/1.73m2 Glom Filt Rate, Est SEE NOTESCBC w/ diffResult Value Ref Range WBC 6.2 4.10 - 11.00 10*3/uL RBC 4.49 4.00 - 5.40 10*6/uL Hemoglobin 14.0 12.0 - 16.0 g/dL Hematocrit 41.2 36.00 - 47.00 % MCV 91.9 80.0 - 95.0 fL MCH 31.1 27.0 - 32.0 pg MCHC 33.9 32 - 36 g/dL RDW 14.2 10.5 - 14.5 % Platelets 203 150 - 450 10*3/uL MPV 9.8 7.1 - 10.7 fL Neutrophils % 44.0 35.0 - 75.0 % Lymphocytes Relative 44.7 16 - 52 % Monocytes Relative 7.3 0 - 8 % Eosinophils Relative 3.0 0.00 - 5.00 % Basophils Relative 1.0 0 - 4 % Neutrophils Absolute 2.7 1 - 7 10*3/uL Lymphocytes Absolute 2.8 1 - 4 10*3/uL Monocytes Absolute 0.5 0 - 0 10*3/uL Eosinophils Man 0.2 0 - 0 10*3/uL Basophils Absolute 0.1 0 - 0 10*3/uLLipaseResult Value Ref Range Lipase 69 65 - 230 U/LUrinalysisResult Value Ref Range Color, UA YELLOW Appearance CLOUDY Specific [place], UA 1.025 1.003 - 1.030 pH, Urine 7.0 5.0 - 7.5 Leukocyte Esterase 1+ (A) NEGATIVE Nitrite, UA NEGATIVE NEGATIVE Protein, UA 2+ (A) NEGATIVE Glucose, UA NEGATIVE NEGATIVE Ketones, UA NEGATIVE NEGATIVE Urobilinogen, UA 0.2 0 - 1.0 mg/dL Bilirubin, UA NEGATIVE NEGATIVE Blood, UA NEGATIVE NEGATIVE Epithelial Cells, UA 1+ (A) NEGATIVE [HPF] Hyaline Casts, UA 0.9 0 - 5 [LPF] Bacteria, UA NEGATIVE NEGATIVE [HPF] WBC, UA 27.8 (H) 0 - 8 [HPF] RBC, UA 4.3 (H) 0 - 3 [HPF]Urine specimen held in lab for cultureResult Value Ref Range Urine specimen held in lab for culture URINE SPECIMEN AVAILABLE IN LAB FOR 24HOURSX-ray abdomen 2 view (complete)Result Date: 01/05/2021t. [place] [address] Patient Name: ELVER : 1990 Sex: F Ordering Provider: CARLEEN CHICAS AuthorizingProv: CARLEEN CHICAS Referring Provider: Procedure Performed: / XR ABDOMENTWO VIEW Exam Date: 01/05/2021 16:17 Patient Class: Emergency Reason for Exam:constipation Technique: AP upright and supine views obtained. Comparison:Abdominal x-rays 09/06/2018 Findings: Moderate stool in the proximal andtransverse colon. Nonobstructive bowel gas pattern. No gross free air. Noabnormal calcifications. Visualized osseous structures intact. Visualized lungbases are clear.IMPRESSION: Moderate stool in the colon. No bowel obstruction. No acutefindings. Report electronically signed by: Shayan Covarrubias On 01/05/2021 4:30 PMWorkstation ID: [id number] was electronically signed by Mayte Kelly MD, 01/05/21 4:37 PM.Mayte Kelly, MDPhysician Name Value Range Interpretation Code Description Data Judith rce(s) Supporting Document(s) ID Date Data Source [id number] 01/05/2021 04:30:48 PM EDT [address], [place] [address]Fitcujb Name: DENISHA HARDINGDOB: 1990Sex: FOrdering Provider: CARLEEN CHICASAuthorizing Prov: CARLEEN CHICASReferrsujatha Provider: Procedure Performed: / XR ABDOMEN TWO VIEWExam Date: 01/05/2021 16:17MRN: [id number] Number: [id number] Class: EmergencyAccount #: [id number] for Exam: constipationTechnique: AP upright and supine views obtained.Comparison: Abdominal x-rays 09/06/2018Findings: Moderate stool in the proximal and transverse colon. Nonobstructive bowel gas pattern. No gross free air. No abnormal calcifications. Visualized osseous structures intact. Visualized lung bases are clear. IMPRESSION: Moderate stool in the colon. No bowel obstruction. No acute findings.Report electronically signed by: Shayan Covarrubias On 01/05/2021 4:30 PMWorkstation ID: [id number] Name Value Range Interpretation Code Description Data Judith rce(s) Supporting Document(s) ID Date Data Source [id number] 01/05/2021 02:54:35 PM EDT [facility] Name Value Range Interpretation Code Description Data Judith rce(s) Supporting Document(s) URN CULTURE HOLD [facility] FOR ADD ON CULTURE ID Date Data Source [id number] 01/05/2021 03:10:27 PM EDT [facility] Name Value Range Interpretation Code Description Data Judith rce(s) Supporting Document(s) COLOR [facility] APPEARANCE [facility] SPEC GRAV URINE 1.025 (1.003-1.030) [facility] PH URINE 7.0 (5.0-7.5) [facility] LEUK ESTERASE 1+ (NEG) A [facility] NITRITE URINE (NEG) [facility] PROTEIN URINE 2+ (NEG) A [facility] GLUCOSE URINE (NEG) [facility] KETONE URINE (NEG) [facility] UROBILINOGEN 0.2 mg/dL (0-1.0) [facility] BILIRUBIN URINE (NEG) [facility] BLOOD/HGB URINE (NEG) [facility] EPITHELIAL CELLS 1+ [HPF] (NEG) A [facility] HYALINE CASTS 0.9 [LPF] (0-5) [facility] BACTERIA (NEG) [facility] URINE WBC 27.8 [HPF] (0-8) H [facility] URINE RBC 4.3 [HPF] (0-3) H [facility] ID Date Data Source [id number] 01/05/2021 03:17:49 PM EDT [facility] Name Value Range Interpretation Code Description Data Judith rce(s) Supporting Document(s) SODIUM 141 mmol/L (136-145) [facility] POTASSIUM 4.3 mmol/L (3.6-5.2) [facility] CHLORIDE 110 mmol/L (100-108) H [facility] CO2 27 mmol/L (22-31) [facility] ANION GAP 4 mmol/L (7-16) L [facility] UREA NITROGEN 22 mg/dL (7-24) [facility] CREATININE 1.14 mg/dL (0.60-1.00) H [facility] BUN/CREAT RATIO 19.3 RATIO (10.0-20.0) [facility] GLUCOSE 80 mg/dL (70-99) [facility] CALCIUM 8.4 mg/dL (8.4-10.2) [facility] TOTAL PROTEIN 7.1 g/dL (6.4-8.2) [facility] ALBUMIN 3.4 g/dL (3.5-4.6) L [facility] GLOBULIN 3.7 g/dL (2.7-4.3) [facility] ALB/GLOB RATIO 0.9 RATIO [facility] ALKALINE PHOSPHATASE 80 U/L (45-117) [facility] BILIRUBIN,TOTAL 0.2 mg/dL (0.0-1.0) [facility] PLEASE NOTE:Total bilirubin results may be falselyelevated in patients taking Eltrombopag. AST (SGOT) 25 U/L (11-39) [facility] ALT (SGPT) 41 U/L (12-78) [facility] GFR 55 ml/min/1.73m2 (>59) L [facility] GFR ( AMER) >60 ml/min/1.73m2 (>59) [facility] GFR INTERPRETATION [facility] --NORMAL KIDNEY FUNCTION OR MILD DISEASE - GFR >OR= 60CHRONIC KIDNEY DISEASE - GFR 15 - 59RENAL FAILURE - GFR <15 Est. GFR calculation based on the MDRDstudy equation, which assumes a steadystate for creatinine. Est. GFR should notbe used for medication dosing. ID Date Data Source [id number] 01/05/2021 03:15:13 PM EDT [facility] Name Value Range Interpretation Code Description Data Judith rce(s) Supporting Document(s) LIPASE 69 U/L (65-230) [facility] ID Date Data Source [id number] 01/05/2021 03:05:23 PM EDT [facility] Name Value Range Interpretation Code Description Data Judith rce(s) Supporting Document(s) WBC 6.2 10*3/uL (4.1-11.0) [facility] RBC 4.49 10*6/uL (4.00-5.40) [facility] HGB 14.0 g/dL (12.0-16.0) [facility] HCT 41.2 % (36.0-47.0) [facility] MCV 91.9 fL (80.0-95.0) [facility] MCH 31.1 pg (27.0-32.0) [facility] MCHC 33.9 g/dL (32.0-36.0) [facility] RDW 14.2 % (10.5-14.5) [facility] PLT 203 10*3/uL (150-450) [facility] MPV 9.8 fL (7.1-10.7) [facility] NEUT % 44.0 % (35.0-75.0) [facility] LYMPH % 44.7 % (16.0-52.0) [facility] MONO % 7.3 % (0.0-8.0) [facility] EOS % 3.0 % (0.0-5.0) [facility] BASO % 1.0 % (0.0-4.0) [facility] NEUT # 2.7 10*3/uL (1.8-7.7) [facility] LYMPH # 2.8 10*3/uL (1.2-4.8) [facility] MONO # 0.5 10*3/uL (0.0-0.8) [facility] Eosinophils [#/volume] in Blood by Automated count 0.2 10*3/uL (0.0-0 .5) [facility] BASO # 0.1 10*3/uL (0.0-0.2) [facility] ID Date Data Source [id number] 01/02/2021 04:00:00 AM EDT [facility] ([facility]) Name Value Range Interpretation Code Description Data Judith rce(s) Supporting Document(s) UREA NITROG 27.0 mg/dL [facility] ([facility]) GLUCOSE 92.0 mg/dL [facility] ([facility]) eGFR NON-AF 61.0 mL/min/1.73m2 [facility] ([facility]) CREATININE 1.18 mg/dL [facility] ([facility]) BUN/CREATIN 23.0 (calc) [facility] ([facility]) SODIUM 136.0 mmol/L [facility] eGFR TEZ 71.0 mL/min/1.73m2 [facility] ([facility]) POTASSIUM 5.0 mmol/L [facility] CARBON DIOX 20.0 mmol/L [facility] ([facility]) CHLORIDE 102.0 mmol/L [facility]) PROTEIN, TO 6.3 g/dL [facility]) CALCIUM 9.0 mg/dL [facility]) ALBUMIN 4.0 g/dL [facility]) GLOBULIN 2.3 g/dL (calc) [facility]) ALBUMIN/EMIL 1.7 (calc) [facility] BILIRUBIN, 0.2 mg/dL [facility] ALKALINE PH 68.0 U/L [facility] HCV RNA, QU <15 NOT DETECTED [facility] ([facility]) AST 19.0 U/L [facility] ) ALT 22.0 U/L [facility] ([facility] ) COMMENT [facility] ([facility] ) HCV RNA, QU <1.18 NOT DETECTED [facility] ([facility]) Structure of plantar digital artery (body structure) 6.5 Thousand/uL [facility] ([facility]) RED BLOOD C 4.77 Million/uL [facility] ([facility]) HEMOGLOBIN 14.5 g/dL [facility] HEMATOCRIT 45.3 % [facility] MCH 30.4 pg [facility] ([facility] ) MCV 95.0 fL [facility] ([facility] ) MCHC 32.0 g/dL [facility] ([facility] ) RDW 14.4 % [facility] ([facility] ) PLATELET CO 235.0 Thousand/uL [facility] ( [facility]) ABSOLUTE BA DNR [facility]) MPV 12.2 fL [facility] ([facility] ) ABSOLUTE NE 2847.0 cells/uL [facility] ([facility]) ABSOLUTE MY DNR [facility] ABSOLUTE ME DNR [facility]) ABSOLUTE WI DNR [facility] ABSOLUTE LY 2919.0 cells/uL [facility] ( [facility]) ABSOLUTE MO 475.0 cells/uL [facility] ([facility]) ABSOLUTE BL DNR [facility]) ABSOLUTE EO 189.0 cells/uL [facility] ABSOLUTE BA 72.0 cells/uL [facility]) ABSOLUTE NU DNR [facility]) NEUTROPHILS 43.8 % [facility]) METAMYELOCY DNR [facility]) BAND NEUTRO DNR [facility]) MYELOCYTES DNR [facility]) PROMYELOCYT DNR [facility]) LYMPHOCYTES 44.9 % [facility]) REACTIVE LY DNR [facility] EOSINOPHILS 2.9 % [facility]) MONOCYTES 7.3 % [facility]) BASOPHILS 1.1 % [facility]) NUCLEATED R DNR [facility]) BLASTS DNR [facility]) E [id number] [facility]) COMMENT(S) DNR [facility]) RPR (DX) W/ NON-REACTIVE [facility] ([facility]) ID Date Data Source [id number] 01/04/2021 01:00:00 AM EDT [facility] Received: 01/03/2021 at 20:58:00 QPT : [facility], [address], [address] [place] [address], [phone], Luis Hart MD Received: 01/03/2021 at 20:58:00 QPT : [facility], [address], [address] [place] [address], [phone] MD Received: 01/03/2021 at 20:58:00 QPT : [facility], [address], [address] [place] [address], [phone] MD Received: 01/03/2021 at 20:58:00 QPT : [facility], [address], [address] [place] [address], [phone], Luis Hart MD Name Value Range Interpretation Code Description Data Judith rce(s) Supporting Document(s) Glucose [Mass/volume] in Serum or Plasma 92 mg/dL 65-99 Normal (applies to non- numeric results) [facility] Fasting reference interval Urea nitrogen [Mass/volume] in Serum or Plasma 27 mg/dL 7-25 Above high normal [facility] Creatinine [Mass/volume] in Serum or Plasma 1.18 mg/dL 0.50 -1.10 Above high normal [facility] eGFR NON-AFR. MONTENEGRIN 61 mL/min/1.73m2 > OR = 60 Normal ( applies to non-numeric results) [facility] eGFR 71 mL/min/1.73m2 > OR = 60 Normal (a pplies to non-numeric results) [facility] Urea nitrogen/Creatinine [Mass Ratio] in Serum or Plasma 23 (betsy c) 6-22 Above high normal [facility] Sodium [Moles/volume] in Serum or Plasma 136 mmol/L 135-146 Normal (applies to non-numeric results) [facility] Potassium [Moles/volume] in Serum or Plasma 5.0 mmol/L 3.5- 5.3 Normal (applies to non-numeric results) [facility] Chloride [Moles/volume] in Serum or Plasma 102 mmol/L 98-11 0 Normal (applies to non-numeric results) [facility] Carbon dioxide, total [Moles/volume] in Serum or Plasma 20 mmol/ L 20-32 Normal (applies to non-numeric results) [facility] Calcium [Mass/volume] in Serum or Plasma 9.0 mg/dL 8.6-10. 2 Normal (applies to non-numeric results) [facility] Protein [Mass/volume] in Serum or Plasma 6.3 g/dL 6.1-8.1 Normal (applies to non-numeric results) [facility] Albumin [Mass/volume] in Serum or Plasma 4.0 g/dL 3.6-5.1 Normal (applies to non-numeric results) [facility] Globulin [Mass/volume] in Serum by calculation 2.3 g/dL (calc) 1 .9-3.7 Normal (applies to non-numeric results) [facility] Albumin/Globulin [Mass Ratio] in Serum or Plasma 1.7 (calc) 1.0-2.5 Normal (applies to non-numeric results) [facility] Bilirubin.total [Mass/volume] in Serum or Plasma 0.2 mg/dL 0.2-1.2 Normal (applies to non-numeric results) [facility] Alkaline phosphatase [Enzymatic activity/volume] in Serum or Plasma 68 U/L 31-125 Normal (applies to non-numeric results) [facility] Aspartate aminotransferase [Enzymatic activity/volume] in Serum or Plasma 19 U/L 10-30 Normal (applies to non-numeric results) [facility] Alanine aminotransferase [Enzymatic activity/volume] in Seru m or Plasma 22 U/L 6-29 Normal (applies to non-numeric results) [facility] ID Date Data Source [id number] 01/04/2021 01:00:00 AM EDT [facility] Received: 01/03/2021 at 20:58:00 QPT : [facility], [address], [address] [place] [address], [phone], Luis Hart MD Received: 01/03/2021 at 20:58:00 QPT : [facility], [address], [address] [place] [address], [phone], Luis Hart MD Received: 01/03/2021 at 20:58:00 QPT : [facility], [address], [address] [place] [address], [phone], Luis Hart MD Received: 01/03/2021 at 20:58:00 QPT : [facility], [address], [address] [place] [address], [phone], Luis Hart MD Name Value Range Interpretation Code Description Data Judith rce(s) Supporting Document(s) Hepatitis C virus RNA [Units/volume] (vi ral load) in Serum or Plasma by Probe and target amplification method Normal (applies to non -numeric results) [facility] Hepatitis C virus RNA [log units/volume] (viral load) in Serum or Plasma by Probe and target amplification method No rmal (applies to non-numeric results) [facility] COMMENT [facility] This test was performed using Real-Time Polymerase ChainReaction.Reportable Range: 15 IU/mL to 100,000,000 IU/mL(1.18 Log IU/mL to 8.00 Log IU/mL).The analytical performance characteristics of this assayhave been determined by [employer]. Themodifications have not been cleared or approved by theA. This assay has been validated pursuant to the CLIARegulations and is used for clinical purposes.For more information on this test, go to:http://education.docplanner/faq/LOW59x8(This link is being provided for informational/Educational purposes only.) ID Date Data Source [id number] 01/04/2021 01:00:00 AM EDT [facility] Received: 01/03/2021 at 20:58:00 QPT : [facility], [address], [address] [place] [address], [phone], Luis Hart MD Received: 01/03/2021 at 20:58:00 QPT : [facility], [address], [address] [place] [address], [phone], Luis Hart MD Received: 01/03/2021 at 20:58:00 QPT : [facility], [address], [address] [place] [address], [phone], Luis Hart MD Received: 01/03/2021 at 20:58:00 QPT : [facility], [address], [address] [place] [address], [phone], Luis Hart MD Name Value Range Interpretation Code Description Data Judith rce(s) Supporting Document(s) Leukocytes [#/volume] in Blood by Automated count Normal (applies to non- numeric results) [facility] Erythrocytes [#/volume] in Blood by Automated count Normal (applies to non- numeric results) [facility] Hemoglobin [Mass/volume] in Blood Normal (appli es to non-numeric results) [facility] Hematocrit [Volume Fraction] of Blood by Automated count Above high normal [facility] Erythrocyte mean corpuscular volume [Entitic volume] by Automate d count Normal (applies to non-numeric results) [facility] Erythrocyte mean corpuscular hemoglobin [Entitic mass] by Automa aditi count Normal (applies to non-numeric results) [facility] Erythrocyte mean corpuscular hemoglobin concentration [Mass/volume] by Automated count Normal (applies to non-numeric results) [facility] Erythrocyte distribution width [Ratio] by Automated count Normal (applies to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 control; mA and/or kV adjustment per patient size (includes targeted exams where dose is matched to clinical indication); or iterative reconstruction. COMPARISON: No relevant prior studies available. FINDINGS: Brain: No hemorrhage. Unremarkable white matter. No mass effect. Cerebral ventricles: No ventriculomegaly. Bones/joints: Unremarkable. No acute fracture. Paranasal sinuses: Mucosal thickening of bilateral maxillary and sphenoidal sinuses. Partial opacification of the ethmoids. Frontal sinuses are underdeveloped. Mastoid air cells: Visualized mastoid air cells are well aerated. Soft tissues: Unremarkable. IMPRESSION: No evidence of acute intracranial hemorrhage.THIS DOCUMENT HAS BEEN ELECTRONICALLY SIGNED BY SOFI TAYLOR MDThis document has been electronically signed by BENTON Duncan on 08/21/2020 8:45 PM Name Value Range Interpretation Code Description Data Judith rce(s) Supporting Document(s) ID Date Data Source [id number] 08/21/2020 08:22:27 PM [facility] Name Value Range Interpretation Code Description Data Judith rce(s) Supporting Document(s) Choriogonadotropin.beta subunit free [Units/volume] in Serum or Plasm a <5 [facility] (NOTE)Levels between 5 and 25 [IU]/L may indicate earlypregnancy and should be repeated after 48 hours. ID Date Data Source [id number] 08/21/2020 08:22:27 PM [facility] Name Value Range Interpretation Code Description Data Judith rce(s) Supporting Document(s) Sodium [Moles/volume] in Blood 140 mmol/L 136-145 [facility] Potassium [Moles/volume] in Blood 3.5 mmol/L 3.4-5.1 [facility] Chloride [Moles/volume] in Blood 107 mmol/L 98-107 [facility] Carbon dioxide, total [Moles/volume] in Blood 23 mmol/L 22-29 [facility] Calcium.ionized [Moles/volume] in Blood 1.24 mmol/L 1.13-1.32 [facility] Glucose [Mass/volume] in Blood 98 mg/dL 70-140 [facility] Urea nitrogen [Mass/volume] in Blood 17 mg/dL 6-20 [facility] Creatinine [Mass/volume] in Blood 0.5 mg/dL 0.50-0.90 [facility] Hematocrit [Volume Fraction] of Blood 42 % 36-45 [facility] Hemoglobin [Mass/volume] in Blood by calculation 14.3 g/dL 11.5-15.5 [facility] ID Date Data Source [id number] 08/22/2020 08:10:09 PM EDT [facility] Name Value Range Interpretation Code Description Data Judith rce(s) Supporting Document(s) Clotting time.intrinsic coagulation syst em activated of Blood by Thromboelastography 4.9 min 5.0-10.0 L [facility] Clot formation.intrinsic coagulation sys tem activated [Time] in Blood by Thromboelastography 1.2 min 1.0-3.0 [facility] Clot angle in Blood by Thromboelastography 72.0 deg 53.0-72.0 [facility] Maximum clot firmness [Length] in Blood by Thromboelastograp hy 70.6 mm 50.0-71.0 [facility] Clot Lysis [Length fraction] in Blood by Thromboelastography --30 minutes post maximum clot amplitude 0.3 % 0-7.5 [facility] Coagulation specialist review of results [facility] The TEG parameters are essentially withi n normal limits, providing no indication for blood products. Although no hemostatic defect is identified, the patient's clinical condition and the results of other available hemostasis tests should also be evaluated to determine if blood products are indicated. Pathologist name [facility] ID Date Data Source [id number] 08/21/2020 08:55:48 PM EDT [facility] Name Value Range Interpretation Code Description Data Judith rce(s) Supporting Document(s) ABO and Rh group [Type] in Blood [facility] Blood group antibody screen [Presence] in Serum or Plasma [facility] [place] Type Confirmed ID Date Data Source [id number] 08/21/2020 08:29:05 PM EDT [facility] Name Value Range Interpretation Code Description Data Judith rce(s) Supporting Document(s) Leukocytes [#/volume] in Blood by Automated count 13.9 10*3/uL 4-10 [facility] Erythrocytes [#/volume] in Blood by Automated count 4.66 10*6/uL 4.1- 5.3 [facility] Hemoglobin [Mass/volume] in Blood 13.2 g/dL 11.5-15.5 [facility] Hematocrit [Volume Fraction] of Blood by Automated count 40.3 % 3 6-45 [facility] Erythrocyte mean corpuscular volume [Entitic volume] by Auto mated count 86.3 fL 80-96 [facility] Erythrocyte mean corpuscular hemoglobin [Entitic mass] by Automated count 28.3 pg 27-33 [facility] Erythrocyte mean corpuscular hemoglobin concentration [Mass/volume] by [facility] 32.7 g[facility] distribution width [Ratio] by Automated count 13.7 % 11.5-14.5 [facility] Platelets [#/volume] in Blood by Automated count 255 10*3/uL 150-400 [facility] Differential cell count method - Blood [facility] Neutrophils/100 leukocytes in Blood by Automated count 74 % [facility] Lymphocytes/100 leukocytes in Blood by Automated count 19 % [facility] Monocytes/100 leukocytes in Blood by Automated count 6 % [facility] Eosinophils/100 leukocytes in Blood by Automated count 0 % [facility] Basophils/100 leukocytes in Blood by Automated count 1 % [facility] Neutrophils [#/volume] in Blood by Automated count 10.32 10*3/uL 1.8- 7.0 H [facility] Lymphocytes [#/volume] in Blood by Automated count 2.67 10*3/uL 1.2-4 .0 [facility] Monocytes [#/volume] in Blood by Automated count 0.82 10*3/uL 0-0.8 H [facility] Eosinophils [#/volume] in Blood by Automated count 0.04 10*3/uL 0-0.5 [facility] Basophils [#/volume] in Blood by Automated count 0.06 10*3/uL 0-0.2 [facility] Nucleated erythrocytes/100 leukocytes [Ratio] in Blood by Automated count 0 /100{WBCs} 0-0 [facility] ID Date Data Source [id number] [facility]2020 [facility] Interpretation Code Description Data Judith rce(s) Supporting Document(s) Prothrombin time (PT) 13.4 s 12.5-14.9 [facility] INR in Platelet poor plasma by Coagulation assay 1.01 [facility] Routine intensity oral anticoagulation I NR is typically 2.0-3.0. Target INR must be clinically individualized. ID Date Data Source [id number] 08/21/2020 08:46:40 PM [facility] Value Range Interpretation Code Description Data Judith rce(s) Supporting Document(s) aPTT in Platelet poor plasma by Coagulation assay 27.2 s 24.0-33. 0 [facility] ID Date Data Source [id number] 08/21/2020 08:53:09 PM [facility] Value Range Interpretation Code Description Data Judith rce(s) Supporting Document(s) Lipase [Enzymatic activity/volume] in Serum or Plasma 22 U/L 13-6 0 [facility] ID Date Data Source [id number] 08/21/2020 08:53:09 PM [facility] Value Range Interpretation Code Description Data Judith rce(s) Supporting Document(s) Albumin [Mass/volume] in Serum or Plasma by Bromocresol green (BCG) dye binding method 3.4 g/dL 3.5-5.2 [facility] Bilirubin.total [Mass/volume] in Serum or Plasma 0.3 mg/dL <1.2 [facility] Calcium [Mass/volume] in Serum or Plasma 8.8 mg/dL 8.6-10.0 [facility] Chloride [Moles/volume] in Serum or Plasma 109 mmol/L 98-107 [facility] Creatinine [Mass/volume] in Serum or Plasma 0.61 mg/dL 0.50-0.90 [facility] Glucose [Mass/volume] in Serum or Plasma 99 mg/dL 70-140 [facility] Alkaline phosphatase [Enzymatic activity/volume] in Serum or Plasma 62 U/L 35-104 [facility] Potassium [Moles/volume] in Serum or Plasma 3.5 mmol/L 3.4-5.1 [facility] Protein [Mass/volume] in Serum or Plasma 6.0 g/dL 6.4-8.3 L [facility] Sodium [Moles/volume] in Serum or Plasma 139 mmol/L 136-145 [facility] Aspartate aminotransferase [Enzymatic activity/volume] in Serum or Plasma 45 U/L <32 [facility] Urea nitrogen [Mass/volume] in Serum or Plasma 16 mg/dL 6-20 [facility] Osmolality of Serum or Plasma by calculation 290 mosm/kg 275-300 [facility] Creatinine/Urea nitrogen [Mass Ratio] in Serum or Plasma 25 [facility] Bicarbonate [Moles/volume] in Serum 21 mmol/L 22-29 L [facility] Alanine aminotransferase [Enzymatic activity/volume] in Seru m or Plasma 49 U/L <33 [facility] Anion gap 3 in Serum or Plasma 9 mmol/L 8-15 [facility] Glomerular filtration rate/1.73 sq M pre dicted among non-blacks [Volume Rate/Area] in Serum or Plasma by Creatinine-based formula (MDRD) >6 0 [facility] Glomerular filtration rate/1.73 sq M pre dicted among blacks [Volume Rate/Area] in Serum or Plasma by Creatinine-based formula (MDRD) >60 [facility] ID Date Data Source [id number] 08/21/2020 08:15:07 PM T [facility] Name Value Range Interpretation Code Description Data Judith rce(s) Supporting Document(s) Troponin I.cardiac [Mass/volume] in Blood 0.00 ng/mL 0.00-0.08 [facility] ID Date Data Source [id number] 07/26/2020 01:19:38 PM EST [facility] Name Value Range Interpretation Code Description Data Judith rce(s) Supporting Document(s) &PDF [facility] UELDHq7pGjCUNxJf56/MEGfkUBKoa6ZnXXvvALl2ZDfkUDBwN7DxaCmtBFnSKV8TJ13lVp4ZWWInQKNr waW [file] +VO2gYqGd0crqssfr1TefTumX6+CFoIBOIjU4V [file] ICAgICAgICAgICAgICAgICAgICAgICAgICAgICAgIC AgICAgICAgICAgICAgICAgICAgICAgDQogICAgICAgICAgICAgICAgICAgICAgICAgICAgICAgICAgIC AgICAgICAgICAgICAgICAgICAgICAgICAgICAgICAgICAgICAgICAgICAgICAgICAgICAgICAgICAgIC AgICAgDQogICAgICAgICAgICAgICAgICAgICAgICAg ICAgICAgICAgICAgICAgICAgICAgICAgICAgICAgICAgICAgICAgICAgICAgICAgICAgICAgICAgICAg ICAgICAgICAgICAgICAgDQogICAgICAgICAgICAgICAgICAgICAgICAgICAgICAgICAgICAgICAgICAg ICAgICAgICAgICAgICAgICAgICAgICAgICAgICAgIC AgICAgICAgICAgICAgICAgICAgICAgICAgDQogICAgICAgICAgICAgICAgICAgICAgICAgICAgICAgIC AgICAgICAgICAgICAgICAgICAgICAgICAgICAgICAgICAgICAgICAgICAgICAgICAgICAgICAgICAgIC AgICAgICAgDQogICAgICAgICAgICAgICAgICAgICAg ICAgICAgICAgICAgICAgICAgICAgICAgICAgICAgICAgICAgICAgICAgICAgICAgICAgICAgICAgICAg ICAgICAgICAgICAgICAgICAgDQogICAgICAgICAgICAgICAgICAgICAgICAgICAgICAgICAgICAgICAg ICAgICAgICAgICAgICAgICAgICAgICAgICAgICAgIC AgICAgICAgICAgICAgICAgICAgICAgICAgICAgDQogICAgICAgICAgICAgICAgICAgICAgICAgICAgIC AgICAgICAgICAgICAgICAgICAgICAgICAgICAgICAgICAgICAgICAgICAgICAgICAgICAgICAgICAgIC AgICAgICAgICAgDQogICAgICAgICAgICAgICAgICAg ICAgICAgICAgICAgICAgICAgICAgICAgICAgICAgICAgICAgICAgICAgICAgICAgICAgICAgICAgICAg ICAgICAgICAgICAgICAgICAgICAgDQogICAgICAgICAgICAgICAgICAgICAgICAgICAgICAgICAgICAg ICAgICAgICAgICAgICAgICAgICAgICAgICAgICAgIC ExFVShMXXdOQDiHITfISLwJEQuVFJkIZRiGQClGWPrFMw2Q7weGZCpUDBuSZ3sVEk1Op8+DQoNCmVuZH U1pwBsiW7OYH3as8LsORrnPHDqq5WnGOj1WA7CWTQnNSztHF9UKAmcui0ZELFfWSJnmVVFg5wuJmIyNK H3DRWyLlkmAJ6VNNLbZ6ngjqNcNLDfVEIWNC8ZYmPg P1QtvX38DLZQWv9+KKghfaHwNfdNYcR5AZAsg9CuQIr1MO5TYJJxBVgqIO8RVIIzzL7eGAajVW7GUsPd XtSzWOCYIeOhE99orQRuZVg7L8IiDmHwEGIsQpmiYJBdXTcbGeTwYYDoViEfUHhzSR5+ID4+DXyrGB1D EBevocHmFQMaWi2ECBUmUKK5TEQprPZrABpiBCUKCD xrBX7PzHJiVPW0bT1bUBqoFNJrQUThC5sWVjHqpDsnGD79rCskkoJqyZYmYJm+Ru3ZHU5om2GoAAl1cf TgXQcxEXKlHXitSCIaYORxOGNvVWJ7MJM1HVTTImXiKECqFQQgYWuxAKMeARGaux1RZNVdDZGjQSv3JR JtCYKiSIKwNPcePDVfTRU9BSe8WWFzTOAaFT3YMlQl USUmCGEyIEblRUHdMUXmpn5CHATnHIVqBou2DMAcIKSwJHMkCUjdYLQvXYEzXAkbAVJoJPFsND6JEmYj TNVsKSP9TEDlDOQkTYFvds6CYAUgCCOqILO7RlFiYJWfTGNzLNhsQUBdUIP2FeS6CAEoMLBuXU0OKeSr EZUoFHXqWVGmUJNaYKVpjp0GFIDcDUWoMJH9TjKsQU CtMSQuINhoKQSvGHF1Gzq9IDGwBAUySN2QZeCdYPUcTNO9PhUcGBCnIJJpoa8BZCVoNBZjDcvkJxLqGX VfDDWjBNxuBJCrLZE1GUX1RPGiWXOxPW3GSbItFMAnTMP5TYXdTYWhTOBmpg8TRVCoDCHlDHftVIHqYG WrAVJtVSsxAOFuERJ9QYM4UVHbKLNpUI7IWtAkJPEu IDk4YQEzZUAsGNIoih3UwAGpbXmrli7CJQrSYs5YmUzyHGFdEBawOp9hvWEhLBGrHKFRXu6HvwHoEFOo YTFBJUbzQLOkWLwcUNLkAiN7XAQ1JZTeKeo1XuCwQBNcRrFnXaDuZTE8OhS6I7Q4GgBaIve8SBM8GJGo OTVjNWUwMmRmYjFiNDNhZTg+MC0hBDn+Hd1Zz2OdnmA6rkDhDEpnCwv9Xf2QRBYQT4LTBy== ID Date Data Source [id number] 07/19/2020 05:19:57 PM EST [facility] NT INFORMATIONPatient MRN Name Date of Age Gend*PT [id number] Denisha Harding 1990 30 years F ---PT Location Admission Date/Time Visit ID Attending Provider --- --- --- --- EPI ID CSN Admitting Provider [id number] ---Addended by: MARKY MEDLEY on: 07/19/2020 05:19 PM Modules accepted: Orders Name Value Range Interpretation Code Description Data Judith rce(s) Supporting Document(s) ID Date Data Source [id number] 07/11/2020 05:00:00 AM EST [facility] ([facility]) Name Value Range Interpretation Code Description Data Judith rce(s) Supporting Document(s) Creatinine 153.7NORMALNORMAL NE TSMART ([facility]) pH 7.4NORMALNORMAL NETS ART ([facility]) Oxidants -11.00NegativeNegative [facility] ([facility]) Validity Result VALIDVALIDVALID [facility] ([facility]) Amphetamines 299.00NegativeNegative [facility] ([facility]) Barbiturates -2.00NegativeNegative [facility] ([facility]) Benzodiazepines 3.00NegativeNegative [facility] ([facility]) Buprenorphine 111.10PRESUMPTIVE POSITIVEPRESUMPTIVE POSITIVE [facility] ([facility]) Cotinine 649.00PRESUMPTIVE POSITIVEPRESUMPTIVE POSITIVE [facility] Cocaine Metabolites -28.00NegativeNegative [facility] ([facility]) EDDP -97.00NegativeNegative [facility] Ethyl Glucuronide 151.00NegativeNegative [facility] ([facility]) Ethyl Alcohol 0.00NegativeNegative [facility] ([facility]) Fentanyl 1.100PRESUMPTIVE POSITIVEPRESUMPTIVE POSITIVE [facility] ([facility]) Heroin (6-AM) -0.10NegativeNegative [facility] ([facility]) Opiates -28.00NegativeNegative [facility] ([facility]) Methadone -10.00NegativeNegative [facility] ([facility]) Cannabinoids -5.60NegativeNegative [facility] ([facility]) Synthetic Opiates -24.00NegativeNegative [facility] ([facility]) Phencyclidine 1.30NegativeNegative [facility] ([facility]) Tramadol 42.00NegativeNegative [facility] ([facility]) Tricyclics 547.00PRESUMPTIVE POSITIVEPRESUMPTIVE POSITIVE [facility] ([facility]) Ecstasy (MDMA) 50.00NegativeNegative [facility] ([facility]) Buprenorphine 216.190Positive - ConsistentPOSITIVE [facility] ([facility]) Norbuprenorphine 476.890Positive - ConsistentPOSITIVE [facility] ([facility]) Norfentanyl 0.610NegativeNegative [facility] ([facility]) Naloxone 629.130Positive - InconsistentPOSITIVE [facility] ([facility]) Fentanyl 0.040NegativeNegative [facility] ([facility]) Norcarfentanil 0.190NegativeNegative [facility] ([facility]) Carfentanil 0.040NegativeNegative [facility] ([facility]) Doxepin 0.000NegativeNegative [facility] ([facility]) Sufentanil 0.080NegativeNegative [facility] ([facility]) Desmethyldoxepin 0.000NegativeNegative [facility] ([facility]) Nortriptyline 6.610NegativeNegative [facility] ([facility]) Imipramine 3.450NegativeNegative [facility] ([facility]) Clomipramine 12.060NegativeNegative [facility] ([facility]) Amitriptyline 4.260NegativeNegative [facility] ([facility]) Desipramine 7.260NegativeNegative [facility] ([facility]) Clozapine 0.020NegativeNegative [facility] ([facility]) Chlorpromazine 0.160NegativeNegative [facility] ([facility]) Aripiprazole 0.000NegativeNegative [facility] ([facility]) Fluphenazine 0.090NegativeNegative [facility] ([facility]) Haloperidol 0.040NegativeNegative [facility] ([facility]) Olanzapine 0.140NegativeNegative [facility] ([facility]) Lurasidone 0.280NegativeNegative [facility] ([facility]) Promethazine 0.020NegativeNegative NETSMART ([facility]) Quetiapine 50Positive - ConsistentPOSITIVE> [facility] Trifluoperazine 0.230NegativeNegative [facility]SM[facility] ([facility]) Risperidone 0.000NegativeNegative [facility]SM[facility] ([facility]) Bupropion 50Positive - ConsistentPOSITIVE> [facility] Ziprasidone 0.000NegativeNegative NETSM[facility] ([facility]) Trazodone 50Positive - ConsistentPOSITIVE> [facility] ([facility]) Hydroxybupropion 50Positive - ConsistentPOSITIVE> [facility]) mCPP 50Positive - ConsistentPOSITIVE> [facility] ([facility]) ID Date Data Source [id number] 07/14/2020 11:21:15 AM EST [facility] NOTE: Presumptive Positive indicates a n onnegative test result by immunoassay screen. It is a preliminary result. [facility] recommends that a Presumptive Positive result be confirmed by an additional, more specific test such as mass spectrometry Name Value Range Interpretation Code Description Data Judith rce(s) Supporting Document(s) Creatinine 153.7NORMALNORMAL mg/dL 20.0-300.0 mg/dL [facility] pH 7.4NORMALNORMAL 3.5-9.2 [facility] Oxidants -11.00NegativeNegative mcg/mL 200.00 mcg/mL [facility] Validity Result VALIDVALIDVALID [facility] ID Date Data Source [id number] 07/14/2020 11:21:17 AM EST [facility] NOTE: Presumptive Positive indicates a n onnegative test result by immunoassay screen. It is a preliminary result. [facility] recommends that a Presumptive Positive result be confirmed by an additional, more specific test such as mass spectrometry Name Value Range Interpretation Code Description Data Judith rce(s) Supporting Document(s) Amphetamines 299.00NegativeNegative ng/mL 500.00 ng/mL [facility] Barbiturates -2.00NegativeNegative ng/mL 200.00 ng/mL [facility] Benzodiazepines 3.00NegativeNegative ng/mL 200.00 ng/mL [facility] Buprenorphine 111.10PRESUMPTIVE POSITIVEPRESUMPT CHIARA POSITIVE ng/mL 10.00 ng/mL [facility] Cocaine Metabolites -28.00NegativeNegative ng/mL 300.00 ng/m L [facility] Cotinine 649.00PRESUMPTIVE POSITIVEPRESUMPT CHIARA POSITIVE ng/mL 500.00 ng/mL [facility] EDDP -97.00NegativeNegative ng/mL 1000.00 ng/mL [facility] Ethyl Glucuronide 151.00NegativeNegative ng/mL 500.00 ng/mL [facility] Ethyl Alcohol 0.00NegativeNegative mg/dL 100.00 mg/dL [facility] Fentanyl 1.100PRESUMPTIVE POSITIVEPRESUMPTI VE POSITIVE ng/mL 1.00 ng/mL [facility] Heroin (6-AM) -0.10NegativeNegative ng/mL 10.00 ng/mL [facility] Methadone -10.00NegativeNegative ng/mL 300.00 ng/mL [facility] Opiates -28.00NegativeNegative ng/mL 300.00 ng/mL [facility] Synthetic Opiates -24.00NegativeNegative ng/mL 100.00 ng/mL [facility] Phencyclidine 1.30NegativeNegative ng/mL 25.00 ng/mL [facility] Cannabinoids -5.60NegativeNegative ng/mL 20.00 ng/mL [facility] Tramadol 42.00NegativeNegative ng/mL 200.00 ng/mL [facility] Tricyclics 547.00PRESUMPTIVE POSITIVEPRESUMPT CHIARA POSITIVE ng/mL 500.00 ng/mL [facility] Ecstasy (MDMA) 50.00NegativeNegative ng/mL 500.00 ng/mL [facility] ID Date Data Source [id number] 07/14/2020 11:21:18 AM EST [facility] NOTE: Presumptive Positive indicates a n onnegative test result by immunoassay screen. It is a preliminary result. [facility] recommends that a Presumptive Positive result be confirmed by an additional, more specific test such as mass spectrometry Name Value Range Interpretation Code Description Data Judith rce(s) Supporting Document(s) Buprenorphine 216.190Positive - ConsistentPOSITIVE ng/mL 5 .00 ng/mL [facility] Norbuprenorphine 476.890Positive - ConsistentPOSITI VE ng/mL 10.00 ng/mL [facility] Naloxone 629.130Positive - InconsistentPOSITIVE ng/mL 25.00 ng/mL Abnormal (applies to non-numeric results) [facility] ID Date Data Source [id number] 07/14/2020 11:21:20 AM EST [facility] NOTE: Presumptive Positive indicates a n onnegative test result by immunoassay screen. It is a preliminary result. [facility] recommends that a Presumptive Positive result be confirmed by an additional, more specific test such as mass spectrometry Name Value Range Interpretation Code Description Data Judith e(s) Supporting Document(s) Norfentanyl 0.610NegativeNegative ng/mL 1.00 ng/mL [facility] Fentanyl 0.040NegativeNegative ng/mL 1.00 ng/mL [facility] Carfentanil 0.040NegativeNegative ng/mL 1.00 ng/mL [facility] Norcarfentanil 0.190NegativeNegative ng/mL 1.00 ng/mL [facility] Sufentanil 0.080NegativeNegative ng/mL 1.00 ng/mL [facility] ID Date Data Source [id number] 07/14/2020 11:21:22 AM EST [facility] NOTE: Presumptive Positive indicates a n onnegative test result by immunoassay screen. It is a preliminary result. [facility] recommends that a Presumptive Positive result be confirmed by an additional, more specific test such as mass spectrometry Name Value Range Interpretation Code Description Data Judith rce(s) Supporting Document(s) Desmethyldoxepin 0.000NegativeNegative ng/mL 50.00 ng/mL [facility] Doxepin 0.000NegativeNegative ng/mL 50.00 ng/mL [facility] Imipramine 3.450NegativeNegative ng/mL 50.00 ng/mL [facility] Nortriptyline 6.610NegativeNegative ng/mL 50.00 ng/mL [facility] Amitriptyline 4.260NegativeNegative ng/mL 50.00 ng/mL [facility] Clomipramine 12.060NegativeNegative ng/mL 50.00 ng/mL [facility] Desipramine 7.260NegativeNegative ng/mL 50.00 ng/mL [facility] ID Date Data Source [id number] 07/14/2020 11:21:19 AM EST [facility] NOTE: Presumptive Positive indicates a n onnegative test result by immunoassay screen. It is a preliminary result. [facility] recommends that a Presumptive Positive result be confirmed by an additional, more specific test such as mass spectrometry Name Value Range Interpretation Code Description Data Judith e(s) Supporting Document(s) Aripiprazole 0.000NegativeNegative ng/mL 10.00 ng/mL [facility] Chlorpromazine 0.160NegativeNegative ng/mL 10.00 ng/mL [facility] Clozapine 0.020NegativeNegative ng/mL 1.00 ng/mL [facility] Fluphenazine 0.090NegativeNegative ng/mL 2.00 ng/mL [facility] Haloperidol 0.040NegativeNegative ng/mL 1.00 ng/mL [facility] Lurasidone 0.280NegativeNegative ng/mL 2.00 ng/mL [facility] Olanzapine 0.140NegativeNegative ng/mL 1.00 ng/mL [facility] Promethazine 0.020NegativeNegative ng/mL 1.00 ng/mL [facility] Quetiapine 50Positive - ConsistentPOSITIVE> ng/mL 1.00 ng/mL [facility] Risperidone 0.000NegativeNegative ng/mL 1.00 ng/mL [facility] Trifluoperazine 0.230NegativeNegative ng/mL 2.00 ng/mL [facility] Ziprasidone 0.000NegativeNegative ng/mL 10.00 ng/mL [facility] ID Date Data Source [id number] 07/14/2020 11:21:19 AM EST [facility] NOTE: Presumptive Positive indicates a n onnegative test result by immunoassay screen. It is a preliminary result. [facility] recommends that a Presumptive Positive result be confirmed by an additional, more specific test such as mass spectrometry Name Value Range Interpretation Code Description Data [facility](s) Supporting Document(s) Bupropion 50Positive - ConsistentPOSITIVE> ng/mL 1.00 ng/mL [facility] Hydroxybupropion 50Positive - ConsistentPOSITIVE> ng/mL 1.00 ng/mL [facility] ID Date Data Source [id number] 07/14/2020 11:21:20 AM EST [facility] NOTE: Presumptive Positive indicates a n onnegative test result by immunoassay screen. It is a preliminary result. [facility] recommends that a Presumptive Positive result be confirmed by an additional, more specific test such as mass spectrometry Name Value Range Interpretation Code Description Data [facility] rce(s) Supporting Document(s) Trazodone 50Positive - ConsistentPOSITIVE> ng/mL 1.00 ng/mL [facility] mCPP 50Positive - ConsistentPOSITIVE> ng/mL 1.00 ng/mL [facility] ID Date Data Source [id number] 07/05/2020 12:28:28 PM EST [facility] NT INFORMATIONPatient MRN Name Date of Age Gend*PT [id number] Denisha Harding 1990 30 years F OPPT Location Admission Date/Time Visit ID Attending Provider --- --- --- Mookie Schroeder MD([id number]) EPI ID CSN Admitting Provider [id number] ---Denisha Harding was seen by Marky Medley MD.The problems addressed include:1. Cough2. Moderate persistent asthma without complication3. Polysubstance abuse4. Nicotine dependence with nicotine-induced disorder, unspecified nicotineproduct type5. Irritable bowel syndrome with constipation6. GERD without esophagitis7. Dysfunctional uterine bleeding s/p ablation8. Paroxysmal atrial fibrillation9. Restless leg [id number]. Von Willebrand hrldejz04. Immunization refusedI have discussed the case with the care-rendering provider Marky Medley MD. Ireviewed and agree with the findings, assessment and plan as documented.Niesha Guevara DO Name Value Range Interpretation Code Description Data [facility] rce(s) Supporting Document(s) ID Date Data Source [id number] 06/25/2020 11:48:27 PM EST [facility] NT INFORMATIONPatient MRN Name Date of Age Gend*PT [id number] Denisha Harding 1990 30 years F OPPT Location Admission Date/Time Visit ID Attending Provider --- --- --- Mookie Schroeder MD([id number]) EPI ID CSN Admitting Provider [id number] ---Subjective: Denisha Harding is a female of 30 years who presents today for various chronic andacute [facility], back at homePalpitation and dizziness, wakes her up, intermittent, q3d, started mon 06/13Psych wants sleep study /2 worsening nightmaresStill seeing counselor and [facility] started again despite s/p ablation 2017Desmopressin for von Willebrand DzClean 4moWants to quit smoking in September (will by <7mo clean)Bronchitis w/green phlegm, cough, no sick contacts or known COVID exposuresDx afib summer 2019, w/o apparent cardiology f/u, will referSwab for COVID/flu due to cough symtpomsURIThis is a new problem. The current episode started 3 days ago. The problem hasbeen gradually worsening. There has been no fever. Associated symptoms includechest pain, congestion, coughing, headaches and wheezing. Pertinent negativesinclude no nausea, sinus pain, sneezing, sore throat or vomiting. Associatedsymptoms comments: Dizziness/palpitations.URI Comments: no sick contactsReview of SystemsConstitutional: Negative for chills and fever.HENT: Positive for congestion. Negative for sinus pain, sneezing and sorethroat.Respiratory: Positive for cough and wheezing.Cardiovascular: Positive for chest pain.Gastrointestinal: Negative for nausea and vomiting.Neurological: Positive for headaches.All other systems reviewed and are negative. PHQ Depression ScorePatient Health Questionnaire PHQ-2/9 ResultsPHQ-9 Score: 13Interpretation of the PHQ depression score severity: Moderate LOPEZ-7 Total ScoreGAD-7 Score: 11GAD-7 Anxiety Severity: Moderate anxiety Positive score for Generalized Anxiety Further evaluation recommendedThe following portions of the patient's history were reviewed and updated asappropriate: allergies, current medications were reconciled with dischargemedications if applicable, past family history, past medical history, pastsocial history, past surgical history, problem list and nutrition. Encouragedregular exercise and healthy diet. BMI management plan discussed..Objective: BP 95/60 | Pulse 60 | Temp 98.2 F | Resp 16 | Wt (!) 100.9 kg (222 lb 8oz) | LMP 06/18/2020 | SpO2 97% | BMI 48.15 kg/m Vitals: 06/20/20 1035BP: 95/60Pulse: 60Resp: 16Temp: 98.2 FSpO2: 97%Weight: (!) 100.9 kg (222 lb 8 oz)PainSc: 4PainLoc: ChestLMP: 06/18/2020*Chest pain with coughing*Chronic borderline hypotension and bradycardia per ptPhysical ExamConstitutional: She is oriented to person, place, and time. She is cooperative.No distress.HENT:Right Ear: External ear normal.Left Ear: External ear normal.Nose: Nose normal.Mouth/Throat: Oropharynx is clear and moist.Eyes: Pupils are equal, round, and reactive to light. Conjunctivae are normal.Right eye exhibits no discharge. Left eye exhibits no discharge.Neck: Normal range of motion. Neck supple.Cardiovascular: Normal rate, regular rhythm, normal heart sounds and intactdistal pulses.RRR at time of examPulmonary/Chest: Effort normal. No respiratory distress. She has wheezes. Shehas rales.Rales R>LAbdominal: Soft. Bowel sounds are normal. She exhibits no distension. There isno tenderness.Musculoskeletal: Normal range of motion. She exhibits no edema.Neurological: She is alert and oriented to person, place, and time. She exhibitsnormal muscle tone.Skin: Skin is warm and dry. She is not diaphoretic.Psychiatric: She has a normal mood and affect. Her behavior is normal.Nursing note and vitals reviewed.Assessment/Plan: Diagnoses and all orders for this visit:Cough (Primary)Comments:3d duration, no fever/chillsCOVID/Resp panel testing w/isolation ordersOrders:- Influenza A/B, RSV by PCR- Coronavirus by PCR- Coronavirus by PCR- Respiratory Mini PCRModerate persistent asthma without complication (Chronic)Comments:RefillAssessment & Plan:RefillOrders:- albuterol (PROVENTIL HFA;VENTOLIN HFA) 108 (90 Base) MCG/ACT inhaler;Inhale 2 puffs every 4 (four) hours as needed for wheezing Dispense: 1 Inhaler;Refill: 5- ANORO ELLIPTA 62.5-25 MCG/INH inhaler; Inhale 1 puff daily Dispense: 1each; Refill: 5Polysubstance abuse (Chronic)Overview:Etoh, spike, tobacco, leonard, heroinFo llows with Carri Hale (prescribing) at [facility] ([phone])Assessment & Plan:Clean x4mo, [facility] to [facility] with [facility] for counseling/prescribingOrders:- Multiple Vitamins-Iron (MULTIVITAMIN WITH IRON) TABS; Take 1 tablet bymouth daily Dispense: 90 tablet; Refill: 1Nicotine dependence with nicotine-induced disorder, unspecified nicotine producttype (Chronic)Assessment & Plan:Pt wants to quit in September (sobriety milestone), will f/u prior with resourcesIrritable bowel syndrome with constipationAssessment & Plan:RefillOrders:- senna (SENOKOT) 8.6 MG TABS; Take 1 tablet (8.6 mg total) by mouth dailyFor treatment of constipation, hold for loose stools Dispense: 90 each; Refill:1GERD without esophagitisComments:RefillAssessment & Plan:RefillOrders:- esomeprazole (SM ESOMEPRAZOLE MAGNESIUM) 20 MG capsule; Take 1 capsule (20mg total) by mouth daily Dispense: 90 capsule; Refill: 1Dysfunctional uterine bleeding s/p ablationAssessment & Plan:Menses have recurred despite prior ablation, refer to [employer] for possible repeatOrders:- Ambulatory referral to OB/GYNParoxysmal atrial fibrillation (Chronic)Assessment & Plan:Intermittent symptoms, no cardio f/u yet, will refer to cardioSuspect JENNIFER component, refer for sleep studyOrders:- Ambulatory referral to Cardiology- Ambulatory referral to Sleep StudyRestless leg syndromeAssessment & Plan:RefillOrders:- rOPINIRole (REQUIP) 0.25 MG tablet; TAKE ONE TABLET BY MOUTH THREE TIMES ADAY NEEDED FOR RESTLESS LEGS Dispense: 90 tablet; Refill: 2Von Willebrand disease (Chronic)Assessment & Plan:RefillOrders:- desmopressin (DDAVP NASAL) 0.01 % solution; 1 spray (10 mcg total) intoeach nostril 2 (two) times a day Dispense: 5 mL; Refill: 5Immunization refusedHealth Maintenance DueTopic Date Due Tetanus Vaccines (1 - Tdap) 01/05/1999 Pneumococcal 19-64 Medium Risk (1 of 1 - PPSV23) 01/05/2007 PAP SMEAR 01/05/2009 Influenza Vaccine 01/09/2020Health Maintenance reviewed - immunizations declined.Follow Up Return in about 2 months (around 08/18/2020), or if symptoms worsen or fail toimprove, for Annual physical.Administrative InfoDiscussed with Niesha Manning D.O. and sent to supervising physicianNiesha Guevara D.O. for review and co-signature. Name Value Range Interpretation Code Description Data Judith rce(s) Supporting Document(s) ID Date Data Source [id number] 06/23/2020 11:50:47 AM EST [facility] Name Value Range Interpretation Code Description Data Judith rce(s) Supporting Document(s) RESPIRATORY SOURCE [facility] Nasopharyngeal INFLUENZA A BY PCR [facility] Not Detected INFLUENZA B BY PCR [facility] Not Detected RSV BY PCR [facility] Not Detected INTERPRETIVE INFORMATION: R espiratory Virus Mini Panel by PCR A negative result does not rule out the presence of PCR inhibitors in the patient specimen or assay specific nucleic acid in concentrations below the level of detection by the assay. Performed by [facility], [address] [place] [id number] www.[facility], Sylvia Mcmillan MD, Lab. Director ID Date Data Source [id number] 06/23/2020 08:24:03 AM EST [facility] Name Value Range Interpretation Code Description Data Judith rce(s) Supporting Document(s) SARS COV2 SOURCE [facility] SARS COV 2 BY PCR [facility] Not Detected INTERPRETIVE INFORMATION: S ARS-CoV-2 (COVID-19) by SANDRA This test should be ordered for the detection of the 2019 novel coronavirus SARS-CoV-2 in individuals who meet SARS-CoV-2 clinical and/or epidemiological criteria. The Coronavirus SARS-CoV-2 (COVID-19) by nucleic acid amplification test is for in vitro diagnostic use under the FDA Emergency Use Authorization (EUA) for US laboratories certified under CLIA to perform high complexity tests. This test has not been FDA cleared or approved. In compliance with this authorization, please visit [email or web address] for more information and to access the applicable information sheets. Not Detected results do not rule out the presence of PCR inhibitors in the patient specimen or assay specific nucleic acid in concentrations below the level of detection by the assay. Detected results are indicative of the presence of SARS-CoV-2 RNA. Due to the complexity of nucleic acid amplification methodologies, there may be a risk of false positive results. Clinical correlation with patient history and other diagnostic information is necessary to determine patient infection status. Reliable results are dependent on adequate specimen collection, transport, storage, and handling. Performed by [facility], [address] [place] [id number] www.[facility], Sylvia Mcmillan MD, Lab. Director ID Date Data Source [id number] 05/30/2020 05:00:00 AM EST [facility] ([facility]) Name Value Range Interpretation Code Description Data Judith rce(s) Supporting Document(s) pH 6.9NORMALNORMAL NETSM ART ([facility]) Creatinine 162.1NORMALNORMAL NE TSMART ([facility]) Amphetamines 352.00NegativeNegative [facility] ([facility]) Oxidants -16.00NegativeNegative [facility] ([facility]) Validity Result VALIDVALIDVALID [facility] ([facility]) Benzodiazepines 44.00NegativeNegative [facility] ([facility]) Buprenorphine 122.40PRESUMPTIVE POSITIVEPRESUMPTIVE POSITIVE [facility] ([facility]) Barbiturates 9.00NegativeNegative [facility] ([facility]) Cotinine 1193.00PRESUMPTIVE POSITIVEPRESUMPTIVE POSITIVE NETSMART ([facility]) Cocaine Metabolites -9.00NegativeNegative [facility]SM[facility] ([facility]) EDDP -58.00NegativeNegative [facility] ([facility]) Ethyl Alcohol 16.00NegativeNegative [facility] ([facility]) Ethyl Glucuronide 408.00NegativeNegative [facility] ([facility]) Heroin (6-AM) 3.00NegativeNegative [facility] ([facility]) Methadone -13.00NegativeNegative [facility] ([facility]) Fentanyl 1.700PRESUMPTIVE POSITIVEPRESUMPTIVE POSITIVE [facility] ([facility]) Synthetic Opiates -23.00NegativeNegative [facility] ([facility]) [facility] -16.00NegativeNegative [facility] Phencyclidine 22.10NegativeNegative [facility] Tramadol 34.00NegativeNegative [facility] ([facility]) Cannabinoids -14.10NegativeNegative [facility] ([facility]) Tricyclics 688.00PRESUMPTIVE POSITIVEPRESUMPTIVE POSITIVE [facility] ([facility]) Ecstasy (MDMA) 82.00NegativeNegative [facility] ([facility]) Norbuprenorphine 494.990Positive - ConsistentPOSITIVE [facility] ([facility]) Buprenorphine 250Positive - ConsistentPOSITIVE> [facility] ([facility]) Naloxone 647.270Positive - InconsistentPOSITIVE [facility] ([facility]) Carfentanil 0.000NegativeNegative [facility] ([facility]) Norfentanyl 0.280NegativeNegative [facility] ([facility]) Fentanyl 0.060NegativeNegative [facility] ([facility]) Norcarfentanil 0.120NegativeNegative [facility] ([facility]) Sufentanil 0.080NegativeNegative [facility] ([facility]) Desmethyldoxepin 0.000NegativeNegative [facility] ([facility]) Imipramine 5.420NegativeNegative [facility] ([facility]) Doxepin 4.360NegativeNegative [facility] ([facility]) Amitriptyline 0.000NegativeNegative [facility] ([facility]) Nortriptyline 0.360NegativeNegative [facility] ([facility]) Aripiprazole 0.000NegativeNegative [facility] ([facility]) Clomipramine 10.470NegativeNegative [facility] ([facility]) Desipramine 0.000NegativeNegative [facility] ([facility]) Chlorpromazine 0.000NegativeNegative [facility] ([facility]) Clozapine 0.000NegativeNegative [facility] ([facility]) Lurasidone 0.230NegativeNegative [facility] ([facility]) Haloperidol 0.000NegativeNegative [facility] ([facility]) Fluphenazine 0.070NegativeNegative [facility] ([facility]) Quetiapine 50Positive - ConsistentPOSITIVE> [facility] ([facility]) Olanzapine 0.120NegativeNegative [facility] ([facility]) Promethazine 0.000NegativeNegative [facility] ([facility]) Risperidone 0.000NegativeNegative [facility] ([facility]) Trifluoperazine 0.250NegativeNegative [facility] ([facility]) Ziprasidone 0.000NegativeNegative [facility] ([facility]) Bupropion 50Positive - ConsistentPOSITIVE> [facility] ([facility]) Hydroxybupropion 50Positive - ConsistentPOSITIVE> [facility] ([facility]) mCPP 50Positive - ConsistentPOSITIVE> [facility] ([facility]) Trazodone 50Positive - ConsistentPOSITIVE> [facility] ([facility]) ID Date Data Source [id number] 06/04/2020 02:01:45 PM EST [facility] NOTE: Presumptive Positive indicates a n onnegative test result by immunoassay screen. It is a preliminary result. [facility] recommends that a Presumptive Positive result be confirmed by an additional, more specific test such as mass spectrometry Name Value Range Interpretation Code Description Data Judith rce(s) Supporting Document(s) Creatinine 162.1NORMALNORMAL mg/dL 20.0-300.0 mg/dL [facility] pH 6.9NORMALNORMAL 3.5-9.2 [facility] Oxidants -16.00NegativeNegative mcg/mL 200.00 mcg/mL [facility] Validity Result VALIDVALIDVALID [facility] ID Date Data Source [id number] 06/04/2020 02:01:45 PM EST [facility] NOTE: Presumptive Positive indicates a n onnegative test result by immunoassay screen. It is a preliminary result. [facility] recommends that a Presumptive Positive result be confirmed by an additional, more specific test such as mass spectrometry Name Value Range Interpretation Code Description Data Judith rce(s) Supporting Document(s) Amphetamines 352.00NegativeNegative ng/mL 500.00 ng/mL [facility] Barbiturates 9.00NegativeNegative ng/mL 200.00 ng/mL [facility] Benzodiazepines 44.00NegativeNegative ng/mL 200.00 ng/mL [facility] Buprenorphine 122.40PRESUMPTIVE POSITIVEPRESUMPT CHIARA POSITIVE ng/mL 10.00 ng/mL [facility] Cocaine Metabolites -9.00NegativeNegative ng/mL 300.00 ng/mL [facility] Cotinine 1193.00PRESUMPTIVE POSITIVEPRESUMP TIVE POSITIVE ng/mL 500.00 ng/mL [facility] EDDP -58.00NegativeNegative ng/mL 1000.00 ng/mL [facility] Ethyl Glucuronide 408.00NegativeNegative ng/mL 500.00 ng/mL [facility] Ethyl Alcohol 16.00NegativeNegative mg/dL 100.00 mg/dL [facility] Fentanyl 1.700PRESUMPTIVE POSITIVEPRESUMPTI VE POSITIVE ng/mL 1.00 ng/mL [facility] Heroin (6-AM) 3.00NegativeNegative ng/mL 10.00 ng/mL [facility] Methadone -13.00NegativeNegative ng/mL 300.00 ng/mL [facility] Opiates -16.00NegativeNegative ng/mL 300.00 ng/mL [facility] Synthetic Opiates -23.00NegativeNegative ng/mL 100.00 ng/mL [facility] Phencyclidine 22.10NegativeNegative ng/mL 25.00 ng/mL [facility] Cannabinoids -14.10NegativeNegative ng/mL 20.00 ng/mL [facility] Tramadol 34.00NegativeNegative ng/mL 200.00 ng/mL [facility] Tricyclics 688.00PRESUMPTIVE POSITIVEPRESUMPT CHIARA POSITIVE ng/mL 500.00 ng/mL [facility] Ecstasy (MDMA) 82.00NegativeNegative ng/mL 500.00 ng/mL [facility] ID Date Data Source [id number] 06/04/2020 02:01:45 PM EST [facility] NOTE: Presumptive Positive indicates a n onnegative test result by immunoassay screen. It is a preliminary result. [facility] recommends that a Presumptive Positive result be confirmed by an additional, more specific test such as mass spectrometry Name Value Range Interpretation Code Description Data Judith rce(s) Supporting Document(s) Buprenorphine 250Positive - ConsistentPOSITIVE> ng/mL 5.00 n g/mL [facility] Norbuprenorphine 494.990Positive - ConsistentPOSITI VE ng/mL 10.00 ng/mL [facility] Naloxone 647.270Positive - InconsistentPOSITIVE ng/mL 25.00 ng/mL Abnormal (applies to non-numeric results) [facility] ID Date Data Source [id number] 06/04/2020 02:01:46 PM EST [facility] NOTE: Presumptive Positive indicates a n onnegative test result by immunoassay screen. It is a preliminary result. [facility] recommends that a Presumptive Positive result be confirmed by an additional, more specific test such as mass spectrometry Name Value Range Interpretation Code Description Data Judith rce(s) Supporting Document(s) Norfentanyl 0.280NegativeNegative ng/mL 1.00 ng/mL [facility] Fentanyl 0.060NegativeNegative ng/mL 1.00 ng/mL [facility] Carfentanil 0.000NegativeNegative ng/mL 1.00 ng/mL [facility] Norcarfentanil 0.120NegativeNegative ng/mL 1.00 ng/mL [facility] Sufentanil 0.080NegativeNegative ng/mL 1.00 ng/mL [facility] ID Date Data Source [id number] 06/04/2020 02:01:46 PM EST [facility] NOTE: Presumptive Positive indicates a n onnegative test result by immunoassay screen. It is a preliminary result. [facility] recommends that a Presumptive Positive result be confirmed by an additional, more specific test such as mass spectrometry Name Value Range Interpretation Code Description Data Judith rce(s) Supporting Document(s) Desmethyldoxepin 0.000NegativeNegative ng/mL 50.00 ng/mL [facility] Doxepin 4.360NegativeNegative ng/mL 50.00 ng/mL [facility] Imipramine 5.420NegativeNegative ng/mL 50.00 ng/mL [facility] Nortriptyline 0.360NegativeNegative ng/mL 50.00 ng/mL [facility] Amitriptyline 0.000NegativeNegative ng/mL 50.00 ng/mL [facility] Clomipramine 10.470NegativeNegative ng/mL 50.00 ng/mL [facility] Desipramine 0.000NegativeNegative ng/mL 50.00 ng/mL [facility] ID Date Data Source [id number] 06/04/2020 02:01:45 PM EST [facility] NOTE: Presumptive Positive indicates a n onnegative test result by immunoassay screen. It is a preliminary result. [facility] recommends that a Presumptive Positive result be confirmed by an additional, more specific test such as mass spectrometry Name Value Range Interpretation Code Description Data Judith rce(s) Supporting Document(s) Aripiprazole 0.000NegativeNegative ng/mL 10.00 ng/mL [facility] Chlorpromazine 0.000NegativeNegative ng/mL 10.00 ng/mL [facility] Clozapine 0.000NegativeNegative ng/mL 1.00 ng/mL [facility] Fluphenazine 0.070NegativeNegative ng/mL 2.00 ng/mL [facility] Haloperidol 0.000NegativeNegative ng/mL 1.00 ng/mL [facility] Lurasidone 0.230NegativeNegative ng/mL 2.00 ng/mL [facility] Olanzapine 0.120NegativeNegative ng/mL 1.00 ng/mL [facility] Promethazine 0.000NegativeNegative ng/mL 1.00 ng/mL [facility] Quetiapine 50Positive - ConsistentPOSITIVE> ng/mL 1.00 ng/mL [facility] Risperidone 0.000NegativeNegative ng/mL 1.00 ng/mL [facility] Trifluoperazine 0.250NegativeNegative ng/mL 2.00 ng/mL [facility] Ziprasidone 0.000NegativeNegative ng/mL 10.00 ng/mL [facility] ID Date Data Source [id number] 06/04/2020 02:01:46 PM EST [facility] NOTE: Presumptive Positive indicates a n onnegative test result by immunoassay screen. It is a preliminary result. [facility] recommends that a Presumptive Positive result be confirmed by an additional, more specific test such as mass spectrometry Name Value Range Interpretation Code Description Data [facility] rce(s) Supporting Document(s) Bupropion 50Positive - ConsistentPOSITIVE> ng/mL 1.00 ng/mL [facility] Hydroxybupropion 50Positive - ConsistentPOSITIVE> ng/mL 1.00 ng/mL [facility] ID Date Data Source [id number] 06/04/2020 02:01:46 PM EST [facility] NOTE: Presumptive Positive indicates a n onnegative test result by immunoassay screen. It is a preliminary result. [facility] recommends that a Presumptive Positive result be confirmed by an additional, more specific test such as mass spectrometry Name Value Range Interpretation Code Description [facility]s) Trazodone 50Positive - ConsistentPOSITIVE> ng/mL 1.00 ng/mL [facility] mCPP 50Positive - ConsistentPOSITIVE> ng/mL 1.00 ng/mL [facility] ID Date Data Source [id number] 05/17/2020 05:00:00 AM EST [facility] ([facility]) Name Value Range Interpretation Code Description Data Judith rce(s) Supporting Document(s) Creatinine 173.1NORMALNORMAL NE [facility]SM[facility] ([facility]) pH 6.0NORMALNORMAL [facility] ([facility]) Validity Result VALIDVALIDVALID [facility] ([facility]) Oxidants -17.00NegativeNegative [facility] ([facility]) Amphetamines 449.00NegativeNegative [facility] ([facility]) Barbiturates 41.00NegativeNegative [facility] ([facility]) Benzodiazepines 14.00NegativeNegative [facility] ([facility]) Cocaine Metabolites -16.00NegativeNegative [facility] ([facility]) Buprenorphine 121.90PRESUMPTIVE POSITIVEPRESUMPTIVE POSITIVE [facility] ([facility]) ED[facility]145.00NegativeNegative [facility] Ethyl Glucuronide 42.00NegativeNegative [facility] Cotinine 988.00PRESUMPTIVE POSITIVEPRESUMPTIVE POSITIVE [facility] Fentanyl 0.500NegativeNegative [facility] ([facility]) Ethyl Alcohol -3.00NegativeNegative [facility] ([facility]) Methadone -15.00NegativeNegative [facility] ([facility]) Opiates -36.00NegativeNegative [facility] ([facility]) Heroin (6-AM) 2.80NegativeNegative [facility] ([facility]) Synthetic Opiates -17.00NegativeNegative [facility] ([facility]) Phencyclidine 23.00NegativeNegative [facility] ([facility]) Tramadol 37.00NegativeNegative [facility] ([facility]) Tricyclics 594.00PRESUMPTIVE POSITIVEPRESUMPTIVE POSITIVE [facility] ([facility]) Cannabinoids -16.40NegativeNegative [facility] ([facility]) Ecstasy (MDMA) 79.00NegativeNegative [facility] ([facility]) Buprenorphine 250Positive - ConsistentPOSITIVE> [facility] ([facility]) Desmethyldoxepin 0.000NegativeNegative [facility] ([facility]) Norbuprenorphine 500Positive - ConsistentPOSITIVE> [facility] ([facility]) Naloxone 553.950Positive - ConsistentPOSITIVE [facility] ([facility]) Imipramine 1.960NegativeNegative [facility] ([facility]) Doxepin 4.240NegativeNegative [facility] ([facility]) Clomipramine 37.370NegativeNegative [facility] ([facility]) Amitriptyline 2.100NegativeNegative [facility] ([facility]) Nortriptyline 3.020NegativeNegative [facility] ([facility]) Desipramine 0.000NegativeNegative [facility] ([facility]) ID Date Data Source [id number] 05/19/2020 05:30:36 PM EST [facility] NOTE: Presumptive Positive indicates a n onnegative test result by immunoassay screen. It is a preliminary result. [facility] recommends that a Presumptive Positive result be confirmed by an additional, more specific test such as mass spectrometry Name Value Range Interpretation Code Description Data [facility] rce(s) Supporting Document(s) Creatinine 173.1NORMALNORMAL mg/dL 20.0-300.0 mg/dL [facility] pH 6.0NORMALNORMAL 3.5-9.2 [facility] Oxidants -17.00NegativeNegative mcg/mL 200.00 mcg/mL [facility] Validity Result VALIDVALIDVALID [facility] ID Date Data Source [id number] 05/19/2020 05:30:36 PM EST [facility] NOTE: Presumptive Positive indicates a n onnegative test result by immunoassay screen. It is a preliminary result. [facility] recommends that a Presumptive Positive result be confirmed by an additional, more specific test such as mass spectrometry Name Value Range Interpretation Code Description Data Judith rce(s) Supporting Document(s) Amphetamines 449.00NegativeNegative ng/mL 500.00 ng/mL [facility] Barbiturates 41.00NegativeNegative ng/mL 200.00 ng/mL [facility] Benzodiazepines 14.00NegativeNegative ng/mL 200.00 ng/mL [facility] Buprenorphine 121.90PRESUMPTIVE POSITIVEPRESUMPT CHIARA POSITIVE ng/mL 10.00 ng/mL [facility] Cocaine Metabolites -16.00NegativeNegative ng/mL 300.00 ng/m L [facility] Cotinine 988.00PRESUMPTIVE POSITIVEPRESUMPT CHIARA POSITIVE ng/mL 500.00 ng/mL [facility] EDDP -145.00NegativeNegative ng/mL 1000.00 ng/mL [facility] Ethyl Glucuronide 42.00NegativeNegative ng/mL 500.00 ng/mL [facility] Ethyl Alcohol -3.00NegativeNegative mg/dL 100.00 mg/dL [facility] Fentanyl 0.500NegativeNegative ng/mL 1.00 ng/mL [facility] Heroin (6-AM) 2.80NegativeNegative ng/mL 10.00 ng/mL [facility] Methadone -15.00NegativeNegative ng/mL 300.00 ng/mL [facility] Opiates -36.00NegativeNegative ng/mL 300.00 ng/mL [facility] Synthetic Opiates -17.00NegativeNegative ng/mL 100.00 ng/mL [facility] Phencyclidine 23.00NegativeNegative ng/mL 25.00 ng/mL [facility] Cannabinoids -16.40NegativeNegative ng/mL 20.00 ng/mL [facility] Tramadol 37.00NegativeNegative ng/mL 200.00 ng/mL [facility] Tricyclics 594.00PRESUMPTIVE POSITIVEPRESUMPT CHIARA POSITIVE ng/mL 500.00 ng/mL [facility] Ecstasy (MDMA) 79.00NegativeNegative ng/mL 500.00 ng/mL [facility] ID Date Data Source [id number] 05/19/2020 05:30:36 PM EST [facility] NOTE: Presumptive Positive indicates a n onnegative test result by immunoassay screen. It is a preliminary result. [facility] recommends that a Presumptive Positive result be confirmed by an additional, more specific test such as mass spectrometry Name Value Range Interpretation Code Description Data [facility](s) Supporting Document(s) Buprenorphine 250Positive - ConsistentPOSITIVE> ng/mL 5.00 n g/mL [facility] Norbuprenorphine 500Positive - ConsistentPOSITIVE> ng/mL 1 0.00 ng/mL [facility] Naloxone 553.950Positive - ConsistentPOSITIVE ng/mL 25.00 ng/mL [facility] ID Date Data Source [id number] 05/19/2020 05:30:36 PM EST [facility] NOTE: Presumptive Positive indicates a n onnegative test result by immunoassay screen. It is a preliminary result. [facility] recommends that a Presumptive Positive result be confirmed by an additional, more specific test such as mass spectrometry Name Value Range Interpretation Code Description Data [facility](s) Supporting Document(s) Desmethyldoxepin 0.000NegativeNegative ng/mL 50.00 ng/mL [facility] Doxepin 4.240NegativeNegative ng/mL 50.00 ng/mL [facility] Imipramine 1.960NegativeNegative ng/mL 50.00 ng/mL [facility] Nortriptyline 3.020NegativeNegative ng/mL 50.00 ng/mL [facility] Amitriptyline 2.100NegativeNegative ng/mL 50.00 ng/mL [facility] Clomipramine 37.370NegativeNegative ng/mL 50.00 ng/mL [facility] Desipramine 0.000NegativeNegative ng/mL 50.00 ng/mL [facility] ID Date Data Source [id number] 05/11/2020 05:30:08 PM [facility] NT INFORMATIONPatient MRN Name Date of Age Gend*PT [id number] Denisha Harding 1990 30 years F OPPT Location Admission Date/Time Visit ID Attending Provider --- --- --- Ga Carpio MD([id number]) EPI ID CSN Admitting Provider [id number] ---Denisha Harding was seen by Mariama Lorenz MD.The problems addressed include:1. Lymphadenitis2. Medication refillI have discussed the case with the care-rendering provider Mariama Lorenz MD. Ireviewed and agree with the findings, assessment and plan as documented.Ga Carpio MD Name Value Range Interpretation Code Description Data Judith rce(s) Supporting Document(s) ID Date Data Source [id number] 05/11/2020 10:18:38 AM [facility] NT INFORMATIONPatient MRN Name Date of Age Gend*PT [id number] Denisha Harding 1990 30 years F OPPT Location Admission Date/Time Visit ID Attending Provider --- --- --- Ga Carpio MD([id number]) EPI ID CSN Admitting Provider [id number] ---Assessment/Plan:Denisha Harding is a 30 years female who presents today with ear pain.Diagnoses and all orders for this visit:Lymphadenitis (Primary)-Pt reports pain, radiating to her right ear from her anterior cervical lymphnode chain located under her right ear.-No dental infection noted in patient's mouth. No pharyngeal edema, erythema,exudate noted.-Pt denies fever, chils or discharge from right ear.-Right ear without pus or drainage.-Pt with cervical adenopathy located on anterior cervical chain under right ear.Tender to palpation.-Suspect lymphadenitis.-Pt allergic to clindamycin, metronidazole, sulfa antibiotics, and penicillins.-Will prescribe doxycycline 100mg BID, pt states she has tolerated thatpreviously.-Will see patient on Saturday, if not improved, will send to ENT.- Pt denies drug use. States she has been drug free for 68 days.-Informed patient that if her pain worsens or she develops ear drainage, orfever/chills to go to the ED as Thanksgiving is tomorrow and the office will beclosed- doxycycline (VIBRA-TABS) 100 MG tablet; Take 1 tablet (100 mg total) bymouth 2 (two) times a day for 10 daysMedication refill- QUEtiapine (SEROQUEL) 100 MG tablet; Take 1 tablet (100 mg total) by mouth2 (two) times a day.Signature: Mariama Lorenz MD PGY-3Date: May 04, 2020Time: 2:48 PMDiscussed with Ga Carpio MD and sent to supervising physician MD Yury for review and co- signature.Subjective:Patient ID: Denisha Harding is a 30 years female who presents today with ear pain.OtalgiaThere is pain in the right ear. This is a new problem. The current episodestarted 4 days ago. The problem occurs constantly. The problem has beengradually worsening. There has been no fever. The pain is at a severity of 6/10.The pain is moderate. Pertinent negatives include no abdominal pain, coughing,diarrhea, ear discharge, headaches, sore throat or vomi ting. She has triedNSAIDs for the symptoms. The treatment provided significant relief. There is nohistory of hearing loss or a tympanostomy tube.Pt states she also has pain behind and under her right ear. She states there arepainful "lumps" under her right ear.The following portions of the patient's history were reviewed and updated asappropriate: allergies, current medications were reconciled with dischargemedications if applicable, past family history, past medical history, pastsocial history, past surgical history and problem list.Review of SystemsConstitutional: Positive for fatigue. Negative for chills and fever.HENT: Positive for congestion and ear pain. Negative for ear discharge, sinuspressure, sinus pain and sore throat.Respiratory: Negative for cough, chest tightness and shortness of breath.Cardiovascular: Negative for chest pain.Gastrointestinal: Positive for constipation. Negative for abdominal pain,diarrhea, nausea and vomiting.Musculoskeletal: Negative for gait problem.Ne urological: Negative for dizziness, light-headedness and headaches.Objective:Vitals: BP 114/69 | Pulse 72 | Temp 97 F | Resp 18 | Ht 1.448 m (4' 9") |Wt 100.7 kg (222 lb) | SpO2 96% | BMI 48.04 kg/m Physical ExamConstitutional: No distress.somnolentHENT:Head: Normocephalic and atraumatic. Head is without raccoon's eyes and withoutBattle's sign.Right Ear: Hearing normal. No lacerations. There is tenderness. No drainage orswelling. No foreign bodies. Tympanic membrane is erythematous. Tympanicmembrane is not injected. No middle ear effusion. No hemotympanum.Left Ear: Hearing and tympanic membrane normal. No lacerations. No drainage,swelling or tenderness. No foreign bodies. Tympanic membrane is not injected andnot erythematous. No middle ear effusion. No hemotympanum.Nose: No rhinorrhea.Mouth/Throat: No oropharyngeal exudate, posterior oropharyngeal edema, posteriororopharyngeal erythema or tonsillar abscesses.Eyes: Right eye exhibits no discharge. Left eye exhibits no discharge.Neck: Neck supple.Skin: She is not diaphoretic. Name Value Range Interpretation Code Description Data [facility] rce(s) Supporting Document(s) ID Date Data Source [id number] 05/07/2020 01:00:46 PM EST [facility] NT INFORMATIONPatient MRN Name Date of Age Gend*PT [id number] Denisha Harding 1990 30 years F OPPT Location Admission Date/Time Visit ID Attending Provider --- --- --- Ron Tejada MD([id number]) EPI ID CSN Admitting Provider [id number] ---Denisha Harding was seen by Marky Medley MD.The problems addressed include:1. Polysubstance abuse2. Irritable bowel syndrome with constipation3. Moderate persistent asthma without complication4. GERD without esophagitis5. SedatedI have discussed the case with the care-rendering provider Marky Medley MD. Ireviewed and agree with the findings, assessment and plan as documented.Ron Tejada MD Name Value Range Interpretation Code Description Data [facility] Supporting Document(s) ID Date Data Source [id number] 05/06/2020 05:49:13 PM EST [facility] NOTE: Presumptive Positive indicates a n onnegative test result by immunoassay screen. It is a preliminary result. [facility] recommends that a Presumptive Positive result be confirmed by an additional, more specific test such as mass spectrometry Name Value Range Interpretation Code Description Data [facility](s) Supporting Document(s) Creatinine 143.1NORMALNORMAL mg/dL 20.0-300.0 mg/dL [facility] pH 6.9NORMALNORMAL 3.5-9.2 [facility] Oxidants -13.00NegativeNegative mcg/mL 200.00 mcg/mL [facility] Validity Result VALIDVALIDVALID [facility] ID Date Data Source [id number] 05/06/2020 05:49:14 PM EST [facility] NOTE: Presumptive Positive indicates a n onnegative test result by immunoassay screen. It is a preliminary result. [facility] recommends that a Presumptive Positive result be confirmed by an additional, more specific test such as mass spectrometry Name Value Range Interpretation Code Description Data [facility](s) Supporting Document(s) Amphetamines 350.00NegativeNegative ng/mL 500.00 ng/mL [facility] Barbiturates 39.00NegativeNegative ng/mL 200.00 ng/mL [facility] Benzodiazepines 29.00NegativeNegative ng/mL 200.00 ng/mL [facility] Buprenorphine 117.60PRESUMPTIVE POSITIVEPRESUMPT CHIARA POSITIVE ng/mL 10.00 ng/mL [facility] Cocaine Metabolites -2.00NegativeNegative ng/mL 300.00 ng/mL [facility] Cotinine 860.00PRESUMPTIVE POSITIVEPRESUMPT CHIARA POSITIVE ng/mL 500.00 ng/mL [facility] EDDP -74.00NegativeNegative ng/mL 1000.00 ng/mL [facility] Ethyl Glucuronide 494.00NegativeNegative ng/mL 500.00 ng/mL [facility] Ethyl Alcohol 5.00NegativeNegative mg/dL 100.00 mg/dL [facility] Fentanyl 1.100PRESUMPTIVE POSITIVEPRESUMPTI VE POSITIVE ng/mL 1.00 ng/mL [facility] Heroin (6-AM) 3.60NegativeNegative ng/mL 10.00 ng/mL [facility] Methadone -17.00NegativeNegative ng/mL 300.00 ng/mL [facility] Opiates -11.00NegativeNegative ng/mL 300.00 ng/mL [facility] Synthetic Opiates -8.00NegativeNegative ng/mL 100.00 ng/mL [facility] Phencyclidine 12.60NegativeNegative ng/mL 25.00 ng/mL [facility] Cannabinoids -12.90NegativeNegative ng/mL 20.00 ng/mL [facility] Tramadol 39.00NegativeNegative ng/mL 200.00 ng/mL [facility] Tricyclics 617.00PRESUMPTIVE POSITIVEPRESUMPT CHIARA POSITIVE ng/mL 500.00 ng/mL [facility] Ecstasy (MDMA) 72.00NegativeNegative ng/mL 500.00 ng/mL [facility] ID Date Data Source [id number] 05/06/2020 05:49:14 PM EST [facility] NOTE: Presumptive Positive indicates a n onnegative test result by immunoassay screen. It is a preliminary result. [facility] recommends that a Presumptive Positive result be confirmed by an additional, more specific test such as mass spectrometry Name Value Range Interpretation Code Description Data Judith rce(s) Supporting Document(s) Buprenorphine 60.380Positive - ConsistentPOSITIVE ng/mL 5.00 ng/mL [facility] Norbuprenorphine 500Positive - ConsistentPOSITIVE> ng/mL 1 0.00 ng/mL [facility] Naloxone 516.950Positive - ConsistentPOSITIVE ng/mL 25.00 ng/mL [facility] ID Date Data Source [id number] 05/06/2020 05:49:14 PM EST [facility] NOTE: Presumptive Positive indicates a n onnegative test result by immunoassay screen. It is a preliminary result. [facility] recommends that a Presumptive Positive result be confirmed by an additional, more specific test such as mass spectrometry Name Value Range Interpretation Code Description Data Judith rce(s) Supporting Document(s) Norfentanyl 0.240NegativeNegative ng/mL 1.00 ng/mL [facility] Fentanyl 0.410NegativeNegative ng/mL 1.00 ng/mL [facility] Carfentanil 0.020NegativeNegative ng/mL 1.00 ng/mL [facility] Norcarfentanil 0.280NegativeNegative ng/mL 1.00 ng/mL [facility] Sufentanil 0.100NegativeNegative ng/mL 1.00 ng/mL [facility] ID Date Data Source [id number] 05/06/2020 05:49:14 PM EST [facility] NOTE: Presumptive Positive indicates a n onnegative test result by immunoassay screen. It is a preliminary result. [facility] recommends that a Presumptive Positive result be confirmed by an additional, more specific test such as mass spectrometry Name Value Range Interpretation Code Description Data Judith rce(s) Supporting Document(s) Desmethyldoxepin 0.000NegativeNegative ng/mL 50.00 ng/mL [facility] Doxepin 3.630NegativeNegative ng/mL 50.00 ng/mL [facility] Imipramine 6.970NegativeNegative ng/mL 50.00 ng/mL [facility] Nortriptyline 3.650NegativeNegative ng/mL 50.00 ng/mL [facility] Amitriptyline 6.180NegativeNegative ng/mL 50.00 ng/mL [facility] Clomipramine 0.000NegativeNegative ng/mL 50.00 ng/mL [facility] Desipramine 3.960NegativeNegative ng/mL 50.00 ng/mL [facility] ID Date Data Source [id number] 05/01/2020 09:08:47 PM EST [facility] NT INFORMATIONPatient MRN Name Date of Age Gend*PT [id number] Denisha Harding 1990 30 years F OPPT Location Admission Date/Time Visit ID Attending Provider --- --- --- Ron Tejada MD([id number]) EPI ID CSN Admitting Provider [id number] ---Subjective: Denisha Harding is a female of 30 years who presents today for follow-up mood,chronic conditionsHPIJust got out of rehab in [place] 04/08, doing well New resident smokes spike, triggeringQuit 02/11/2020SomnolentRecovery house on S sideumb surgery 03/25 Nail biting infection, surgery, healingHelio counseling weeklyBilly through [facility] is prescribing suboxone 12mg divided 4mg TID Weaning off zyprexaConstipation 4d agoReview of SystemsConstitutional: Positive for fatigue. Negative for chills and fever.Respiratory: Negative for cough, chest tightness and shortness of breath.Gastrointestinal: Positive for constipation. Negative for abdominal pain,diarrhea, nausea and vomiting.Neurological: Negative for dizziness, light-headedness and headaches.Substance Assessment Row Name 04/25/20 1038 Audit C Screening How often do you have a drink containing alcohol? pt went to rehab foralcohol and drug abuse, stopped 02/11/20 Substance/Opiate Assessment In the past year,how often have you used prescription drugs for non- medicalreasons or illegal drugs? stopped heroin, spike, cocaine, and rowan on 02/11/20Patient Health Questionnaire PHQ-2/9 ResultsPHQ-9 Score: 3Interpretation of the PHQ depression score severity: Minimal symptomsGAD-7 Score: 1GAD-7 Anxiety Severity: Minimal anxietyThe following portions of the patient's history were reviewed and updated asappropriate: allergies, current medications were reconciled with dischargemedications if applicable, past family history, past medical history, pastsocial history, past surgical history, problem list and nutrition. Encouragedregular exercise and healthy diet. BMI management plan discussed..Objective: BP 120/73 | Pulse 76 | Temp 97.3 F | Resp 20 | Ht 1.448 m (4' 9") | Wt(!) 102.3 kg (225 lb 9.6 oz) | SpO2 95% | BMI 48.82 kg/m Vitals: 04/25/20 1029BP: 120/73Pulse: 76Resp: 20Temp: 97.3 FSpO2: 95%Weight: (!) 102.3 kg (225 lb 9.6 oz)Height: 1.448 m (4' 9")PainSc: 0-No painPhysical ExamConstitutional: She is oriented to person, place, and time. She is cooperative.No distress.ObeseVery sedated throughout visitHENT:Right Ear: External ear normal.Left Ear: External ear normal.Nose: Nose normal.Mouth/Throat: Oropharynx is clear and moist.Eyes: Pupils are equal, round, and reactive to light. Conjunctivae are normal.Right eye exhibits no discharge. Left eye exhibits no discharge.Neck: Normal range of motion. Neck supple.Cardiovascular: Normal rate, regular rhythm, normal heart sounds and intactdistal pulses.Pulmonary/Chest: Effort normal and breath sounds normal. No respiratorydistress.Abdominal: Soft. Bowel sounds are normal. She exhibits no distension. There isno tenderness.Musculoskeletal: Normal range of motion. She exhibits no edema.Neurological: She is alert and oriented to person, place, and time. She exhibitsnormal muscle tone.Skin: Skin is warm and dry. She is not diaphoretic.Thumb surgery site healing wellPsychiatric: She has a normal mood and affect. Her behavior is normal.Nursing note and vitals reviewed.Assessment/Plan: Diagnoses and all orders for this visit:Polysubstance abuse (Primary) (Chronic)Overview:Etoh, spike, tobacco, leonard, heroinFollows with Carri Hale (prescribing) at [facility] ([phone] & Plan:Got out of inpatient rehab in [place] 04/08/2020, doing wellHas been clean since 02/11/2020Currently living in a recovery house on this outside, but is having issuesbecause a new resident is using in the houseOn numerous psychiatric and substance related medications[facility] patient's somatic issues/medsOrders:- Multiple Vitamins-Iron (MULTIVITAMIN WITH IRON) TABS; Take 1 tablet bymouth daily Dispense: 90 tablet; Refill: 1Irritable bowel syndrome with constipationAssessment & Plan:Likely exacerbated by numerous medications including opioidsBowel regimen with daily fiber + MiraLAX, with PRN sennaOrders:- polycarbophil (FIBER-LAX) 625 MG tablet; Take 1 tablet (625 mg total) bymouth daily Dispense: 90 tablet; Refill: 1- polyethylene glycol (GLYCOLAX) 17 GM/SCOOP powder; Take 17 g by mouthdaily 1 capful= 17 g Dispense: 255 g; Refill: 0- senna (SENOKOT) 8.6 MG TABS; Take 1 tablet (8.6 mg total) by mouth dailyFor treatment of constipation, hold for loose stools Dispense: 90 each; Refill:0Moderate persistent asthma without complication (Chronic)Comments:RefillOrders:- albuterol (PROVENTIL HFA;VENTOLIN HFA) 108 (90 Base) MCG/ACT inhaler;Inhale 2 puffs every 4 (four) hours as needed for wheezing Dispense: 1 Inhaler;Refill: 5- ANORO ELLIPTA 62.5-25 MCG/INH inhaler; Inhale 1 puff daily Dispense: 1each; Refill: 5- montelukast (SINGULAIR) 10 MG tablet; Take 1 tablet (10 mg total) by mouthdaily Dispense: 90 tablet; Refill: 1GERD without esophagitisComments:RefillOrders:- SM ESOMEPRAZOLE MAGNESIUM 20 MG capsule; Take 1 capsule (20 mg total) bymouth daily Dispense: 90 capsule; Refill: 1SedatedComments:Sedated throughout visit, denies it is due to her numerous sedating medications,but her psychiatrist is reportedly weaning her off some of theseFollow Up Return in about 4 weeks (around 05/23/2020) for Annual physical w/pap, shots,f/u substance/mood/constipation.Administrative Infodiscussed with and sent to attending physician Ron Tejada MD for review andco-signature.90% of 25min visit spent on counseling and coordination of carePHQ, LOPEZ, AUDIT-C Name Value Range Interpretation Code Description Data [facility](s) Supporting Document(s) ID Date Data Source [id number] 04/23/2020 10:39:31 AM EST [facility] NOTE: Presumptive Positive indicates a n onnegative test result by immunoassay screen. It is a preliminary result. [facility] recommends that a Presumptive Positive result be confirmed by an additional, more specific test such as mass spectrometry Name Value Range Interpretation Code Description Data [facility](s) Supporting Document(s) Creatinine 118.7NORMALNORMAL mg/dL 20.0-300.0 mg/dL [facility] pH 5.3NORMALNORMAL 3.5-9.2 [facility] Oxidants -18.00NegativeNegative mcg/mL 200.00 mcg/mL [facility] Validity Result VALIDVALIDVALID [facility] ID Date Data Source [id number] 04/23/2020 10:39:32 AM EST [facility] NOTE: Presumptive Positive indicates a n onnegative test result by immunoassay screen. It is a preliminary result. [facility] recommends that a Presumptive Positive result be confirmed by an additional, more specific test such as mass spectrometry Name Value Range Interpretation Code Description Data [facility](s) Supporting Document(s) Amphetamines 337.00NegativeNegative ng/mL 500.00 ng/mL [facility] Barbiturates 44.00NegativeNegative ng/mL 200.00 ng/mL [facility] Benzodiazepines 22.00NegativeNegative ng/mL 200.00 ng/mL [facility] Buprenorphine 94.60PRESUMPTIVE POSITIVEPRESUMPTI VE POSITIVE ng/mL 10.00 ng/mL [facility] Cocaine Metabolites 1.00NegativeNegative ng/mL 300.00 ng/mL [facility] Cotinine 1015.00PRESUMPTIVE POSITIVEPRESUMP TIVE POSITIVE ng/mL 500.00 ng/mL [facility] EDDP -61.00NegativeNegative ng/mL 1000.00 ng/mL [facility] Ethyl Glucuronide 796.00PRESUMPTIVE POSITIVEPRESUMPT CHIARA POSITIVE ng/mL 500.00 ng/mL [facility] Ethyl Alcohol 11.00NegativeNegative mg/dL 100.00 mg/dL [facility] Fentanyl 1.000PRESUMPTIVE POSITIVEPRESUMPTI VE POSITIVE ng/mL 1.00 ng/mL [facility] Heroin (6-AM) 2.00NegativeNegative ng/mL 10.00 ng/mL [facility] Methadone -5.00NegativeNegative ng/mL 300.00 ng/mL [facility] Opiates -8.00NegativeNegative ng/mL 300.00 ng/mL [facility] Synthetic Opiates -3.00NegativeNegative ng/mL 100.00 ng/mL [facility] Phencyclidine 11.50NegativeNegative ng/mL 25.00 ng/mL [facility] Cannabinoids -12.40NegativeNegative ng/mL 20.00 ng/mL [facility] Tramadol 32.00NegativeNegative ng/mL 200.00 ng/mL [facility] Tricyclics 593.00PRESUMPTIVE POSITIVEPRESUMPT CHIARA POSITIVE ng/mL 500.00 ng/mL [facility] Ecstasy (MDMA) 74.00NegativeNegative ng/mL 500.00 ng/mL [facility] ID Date Data Source [id number] 04/23/2020 10:39:34 AM EST [facility] NOTE: Presumptive Positive indicates a n onnegative test result by immunoassay screen. It is a preliminary result. [facility] recommends that a Presumptive Positive result be confirmed by an additional, more specific test such as mass spectrometry Name Value Range Interpretation Code Description Data [facility](s) Supporting Document(s) Buprenorphine 127.840Positive - ConsistentPOSITIVE ng/mL 5 .00 ng/mL [facility] Norbuprenorphine 367.960Positive - ConsistentPOSITI VE ng/mL 10.00 ng/mL [facility] Naloxone 230.550Positive - ConsistentPOSITIVE ng/mL 25.00 ng/mL [facility] ID Date Data Source [id number] 04/23/2020 10:39:36 AM EST [facility] NOTE: Presumptive Positive indicates a n onnegative test result by immunoassay screen. It is a preliminary result. [facility] recommends that a Presumptive Positive result be confirmed by an additional, more specific test such as mass spectrometry Name Value Range Interpretation Code Description Data [facility](s) Supporting Document(s) Norfentanyl 0.280NegativeNegative ng/mL 1.00 ng/mL [facility] Fentanyl 0.100NegativeNegative ng/mL 1.00 ng/mL [facility] Carfentanil 0.040NegativeNegative ng/mL 1.00 ng/mL [facility] Norcarfentanil 0.300NegativeNegative ng/mL 1.00 ng/mL [facility] Sufentanil 0.200NegativeNegative ng/mL 1.00 ng/mL [facility] ID Date Data Source [id number] 04/23/2020 10:39:35 AM EST [facility] NOTE: Presumptive Positive indicates a n onnegative test result by immunoassay screen. It is a preliminary result. [facility] recommends that a Presumptive Positive result be confirmed by an additional, more specific test such as mass spectrometry Name Value Range Interpretation Code Description Data [facility](s) Supporting Document(s) Desmethyldoxepin 0.000NegativeNegative ng/mL 50.00 ng/mL [facility] Doxepin 7.950NegativeNegative ng/mL 50.00 ng/mL [facility] Imipramine 10.580NegativeNegative ng/mL 50.00 ng/mL [facility] Nortriptyline 6.390NegativeNegative ng/mL 50.00 ng/mL [facility] Amitriptyline 13.340NegativeNegative ng/mL 50.00 ng/mL [facility] Clomipramine 15.960NegativeNegative ng/mL 50.00 ng/mL [facility] Desipramine 6.090NegativeNegative ng/mL 50.00 ng/mL [facility] ID Date Data Source [id number] 04/23/2020 10:39:38 AM EST [facility] NOTE: Presumptive Positive indicates a n onnegative test result by immunoassay screen. It is a preliminary result. [facility] recommends that a Presumptive Positive result be confirmed by an additional, more specific test such as mass spectrometry Name Value Range Interpretation Code Description Data [facility](s) Supporting Document(s) Ethyl Sulfate 49.490NegativeNegative ng/mL 500.00 ng/mL [facility] Ethyl Glucuronide 642.060Positive - InconsistentPOSI TIVE ng/mL 500.00 ng/mL Abnormal (applies to non-numeric results) [facility] ID Date Data Source [id number] 04/12/2020 02:43:00 PM EST [facility] ([email or web address]) Name Value Range Interpretation Code Description Data [facility](s) Supporting Document(s) Creatinine 30.8NORMALNORMAL NET SMART ([facility]) Oxidants -14.00NegativeNegative [employer]SM[employer] ([employer]) pH 8.2NORMALNORMAL NETSM ART ([employer]) Barbiturates 0.00NegativeNegative [employer] ([employer]) Validity Result VALIDVALIDVALID [employer] ([employer]) Amphetamines 62.00NegativeNegative [facility] ([facility]) Buprenorphine 43.40PRESUMPTIVE POSITIVEPRESUMPTIVE POSITIVE [facility] ([facility]) Benzodiazepines -3.00NegativeNegative [facility] ([facility]) Cotinine 763.00PRESUMPTIVE POSITIVEPRESUMPTIVE POSITIVE [facility] ([facility]) EDDP -34.00NegativeNegative [facility] ([facility]) Cocaine Metabolites 7.00NegativeNegative [facility] ([facility]) Ethyl Glucuronide -12.00NegativeNegative [facility] ([facility]) Ethyl Alcohol 1.00NegativeNegative [facility] ([facility]) Fentanyl 0.300NegativeNegative [facility] ([facility]) Methadone -11.00NegativeNegative [facility] ([facility]) Heroin (6-AM) 1.10NegativeNegative [facility] ([facility]) Synthetic Opiates -16.00NegativeNegative [facility] ([facility]) Phencyclidine 11.70NegativeNegative [facility] ([facility]) Opiates 0.00NegativeNegative [facility] ([facility]) Tramadol 14.00NegativeNegative [facility] ([facility]) Cannabinoids -5.40NegativeNegative [facility] ([facility]) Tricyclics 456.00NegativeNegative [facility] ([facility]) Buprenorphine 28.240Positive - ConsistentPOSITIVE [facility] ([facility]) Ecstasy (MDMA) 6.00NegativeNegative [facility] ([facility]) Norbuprenorphine 75.050Positive - ConsistentPOSITIVE [facility] ([facility]) Naloxone 33.950Positive - ConsistentPOSITIVE [facility] ([facility]) ID Date Data Source [id number] 04/16/2020 02:42:04 PM EST [facility] NOTE: Presumptive Positive indicates a n onnegative test result by immunoassay screen. It is a preliminary result. [facility] recommends that a Presumptive Positive result be confirmed by an additional, more specific test such as mass spectrometry Name Value Range Interpretation Code Description Data [facility](s) Supporting Document(s) Creatinine 30.8NORMALNORMAL mg/dL 20.0-300.0 mg/dL [facility] pH 8.2NORMALNORMAL 3.5-9.2 [facility] Oxidants -14.00NegativeNegative mcg/mL 200.00 mcg/mL [facility] Validity Result VALIDVALIDVALID [facility] ID Date Data Source [id number] 04/16/2020 02:42:05 PM EST [facility] NOTE: Presumptive Positive indicates a n onnegative test result by immunoassay screen. It is a preliminary result. [facility] recommends that a Presumptive Positive result be confirmed by an additional, more specific test such as mass spectrometry Name Value Range Interpretation Code Description Data [facility](s) Supporting Document(s) Amphetamines 62.00NegativeNegative ng/mL 500.00 ng/mL [facility] Barbiturates 0.00NegativeNegative ng/mL 200.00 ng/mL [facility] Benzodiazepines -3.00NegativeNegative ng/mL 200.00 ng/mL [facility] Buprenorphine 43.40PRESUMPTIVE POSITIVEPRESUMPTI VE POSITIVE ng/mL 10.00 ng/mL [facility] Cocaine Metabolites 7.00NegativeNegative ng/mL 300.00 ng/mL [facility] Cotinine 763.00PRESUMPTIVE POSITIVEPRESUMPT CHIARA POSITIVE ng/mL 500.00 ng/mL [facility] EDDP -34.00NegativeNegative ng/mL 1000.00 ng/mL [facility] Ethyl Glucuronide -12.00NegativeNegative ng/mL 500.00 ng/mL [facility] Ethyl Alcohol 1.00NegativeNegative mg/dL 100.00 mg/dL [facility] Fentanyl 0.300NegativeNegative ng/mL 1.00 ng/mL [facility] Heroin (6-AM) 1.10NegativeNegative ng/mL 10.00 ng/mL [facility] Methadone -11.00NegativeNegative ng/mL 300.00 ng/mL [facility] Opiates 0.00NegativeNegative ng/mL 300.00 ng/mL [facility] Synthetic Opiates -16.00NegativeNegative ng/mL 100.00 ng/mL [facility] Phencyclidine 11.70NegativeNegative ng/mL 25.00 ng/mL [facility] Cannabinoids -5.40NegativeNegative ng/mL 20.00 ng/mL [facility] Tramadol 14.00NegativeNegative ng/mL 200.00 ng/mL [facility] Tricyclics 456.00NegativeNegative ng/mL 500.00 ng/mL [facility] Ecstasy (MDMA) 6.00NegativeNegative ng/mL 500.00 ng/mL [facility] ID Date Data Source [id number] 04/16/2020 02:42:07 PM EST [facility] NOTE: Presumptive Positive indicates a n onnegative test result by immunoassay screen. It is a preliminary result. [facility] recommends that a Presumptive Positive result be confirmed by an additional, more specific test such as mass spectrometry Name Value Range Interpretation Code Description Data [facility](s) Supporting Document(s) Buprenorphine 28.240Positive - ConsistentPOSITIVE ng/mL 5.00 ng/mL [facility] Norbuprenorphine 75.050Positive - ConsistentPOSITIVE ng /mL 10.00 ng/mL [facility] Naloxone 33.950Positive - ConsistentPOSITIVE ng/mL 25.00 n g/mL [facility] ID Date Data Source [id number] 04/06/2020 05:34:31 PM EDT [facility] NOTE: Presumptive Positive indicates a n onnegative test result by immunoassay screen. It is a preliminary result. [facility] recommends that a Presumptive Positive result be confirmed by an additional, more specific test such as mass spectrometry Name Value Range Interpretation Code Description Data [facility] rce(s) Supporting Document(s) Creatinine 82.2NORMALNORMAL mg/dL 20.0-300.0 mg/dL [facility] pH 8.2NORMALNORMAL 3.5-9.2 [facility] Oxidants -14.00NegativeNegative mcg/mL 200.00 mcg/mL [facility] Validity Result VALIDVALIDVALID [facility] ID Date Data Source [id number] 04/06/2020 05:34:32 PM EDT [facility] NOTE: Presumptive Positive indicates a n onnegative test result by immunoassay screen. It is a preliminary result. [facility] recommends that a Presumptive Positive result be confirmed by an additional, more specific test such as mass spectrometry Name Value Range Interpretation Code Description Data [facility] rce(s) Supporting Document(s) Amphetamines 56.00NegativeNegative ng/mL 500.00 ng/mL [facility] Barbiturates 6.00NegativeNegative ng/mL 200.00 ng/mL [facility] Benzodiazepines 12.00NegativeNegative ng/mL 200.00 ng/mL [facility] Buprenorphine -0.80NegativeNegative ng/mL 10.00 ng/mL [facility] Cocaine Metabolites -10.00NegativeNegative ng/mL 300.00 ng/m L [facility] Cotinine 1351.00PRESUMPTIVE POSITIVEPRESUMP TIVE POSITIVE ng/mL 500.00 ng/mL [facility] EDDP -66.00NegativeNegative ng/mL 1000.00 ng/mL [facility] Ethyl Glucuronide -40.00NegativeNegative ng/mL 500.00 ng/mL [facility] Ethyl Alcohol 0.00NegativeNegative mg/dL 100.00 mg/dL [facility] Fentanyl 0.700NegativeNegative ng/mL 1.00 ng/mL [facility] Heroin (6-AM) 0.00NegativeNegative ng/mL 10.00 ng/mL [facility] Methadone -28.00NegativeNegative ng/mL 300.00 ng/mL [facility] Opiates -20.00NegativeNegative ng/mL 300.00 ng/mL [facility] Synthetic Opiates -20.00NegativeNegative ng/mL 100.00 ng/mL [facility] Phencyclidine 0.00NegativeNegative ng/mL 25.00 ng/mL [facility] Cannabinoids -17.10NegativeNegative ng/mL 20.00 ng/mL [facility] Tramadol 14.00NegativeNegative ng/mL 200.00 ng/mL [facility] Tricyclics 540.00PRESUMPTIVE POSITIVEPRESUMPT CHIARA POSITIVE ng/mL 500.00 ng/mL [facility] Ecstasy (MDMA) 6.00NegativeNegative ng/mL 500.00 ng/mL [facility] ID Date Data Source [id number] 04/06/2020 05:34:34 PM EDT [facility] NOTE: Presumptive Positive indicates a n onnegative test result by immunoassay screen. It is a preliminary result. [facility] recommends that a Presumptive Positive result be confirmed by an additional, more specific test such as mass spectrometry Name Value Range Interpretation Code Description Data [facility](s) Supporting Document(s) Buprenorphine 1.560Negative - InconsistentNegative ng /mL 5.00 ng/mL Abnormal (applies to non-numeric results) [facility] Norbuprenorphine 0.000Negative - InconsistentNegati ve ng/mL 10.00 ng/mL Abnormal (applies to non-numeric results) [facility] Naloxone 0.000Negative - InconsistentNegative ng /mL 25.00 ng/mL Abnormal (applies to non-numeric results) [facility] ID Date Data Source [id number] 04/06/2020 05:34:35 PM EDT [facility] NOTE: Presumptive Positive indicates a n onnegative test result by immunoassay screen. It is a preliminary result. [facility] recommends that a Presumptive Positive result be confirmed by an additional, more specific test such as mass spectrometry Name Value Range Interpretation Code Description Data [facility](s) Supporting Document(s) Desmethyldoxepin 5.340NegativeNegative ng/mL 50.00 ng/mL [facility] Doxepin 8.130NegativeNegative ng/mL 50.00 ng/mL [facility] Imipramine 9.830NegativeNegative ng/mL 50.00 ng/mL [facility] Nortriptyline 5.460NegativeNegative ng/mL 50.00 ng/mL [facility] Amitriptyline 2.240NegativeNegative ng/mL 50.00 ng/mL [facility] Clomipramine 4.550NegativeNegative ng/mL 50.00 ng/mL [facility] Desipramine 3.380NegativeNegative ng/mL 50.00 ng/mL [facility] ID Date Data Source [id number] 02/03/2020 04:00:00 AM EDT [facility] ([email or web address]) Name Value Range Interpretation Code Description Data [facility](s) Supporting Document(s) Creatinine 204.1NORMALNORMAL NE [facility]SMART ([employer]) pH 6.3NORMALNORMAL [facility] ([employer]) Oxidants -17.00NegativeNegative [facility] ([employer]) Amphetamines 209.00NegativeNegative [facility] ([employer]) Validity Result VALIDVALIDVALID [facility] ([facility]) Barbiturates -15.00NegativeNegative [facility] ([facility]) Buprenorphine 0.80NegativeNegative [facility] ([facility]) Benzodiazepines -31.00NegativeNegative [facility] ([facility]) Cocaine Metabolites 175.00NegativeNegative [facility] ([facility]) Cotinine 1671.00PRESUMPTIVE POSITIVEPRESUMPTIVE POSITIVE [facility] ([facility]) Ethyl Glucuronide 26.00NegativeNegative [facility] ([facility]) EDDP -91.00NegativeNegative [facility] ([facility]) [facility]yl Alcohol 7.00[facility]Negative [facility] Fentanyl 0.100NegativeNegative [facility] ([facility]) Heroin (6-AM) -1.30NegativeNegative [facility] ([facility]) Opiates -32.00NegativeNegative [facility] ([facility]) Synthetic Opiates -13.00NegativeNegative [facility] ([facility]) Methadone -37.00NegativeNegative [facility] ([facility]) Phencyclidine -4.90NegativeNegative [facility] ([facility]) Cannabinoids 7.80NegativeNegative [facility] ([facility]) Tricyclics 16.00NegativeNegative [facility] ([facility]) Ecstasy (MDMA) -1.00NegativeNegative [facility] ([facility]) Tramadol -18.00NegativeNegative [facility] ([facility]) Buprenorphine 0.000Negative - InconsistentNegative [facility] ([facility]) Naloxone 0.000Negative - InconsistentNegative [facility] ([facility]) Norbuprenorphine 0.620Negative - InconsistentNegative [facility] ([facility]) ID Date Data Source [id number] 02/05/2020 12:00:00 AM EDT [facility] NOTE: Presumptive Positive indicates a n onnegative test result by immunoassay screen. It is a preliminary result. [facility] recommends that a Presumptive Positive result be confirmed by an additional, more specific test such as mass spectrometry Name Value Range Interpretation Code Description Data [facility](s) Supporting Document(s) Creatinine 204.1NORMALNORMAL mg/dL 20.0-300.0 mg/dL [facility] pH 6.3NORMALNORMAL 3.5-9.2 [facility] Oxidants -17.00NegativeNegative mcg/mL 200.00 mcg/mL [facility] Validity Result VALIDVALIDVALID [facility] ID Date Data Source [id number] 02/05/2020 12:00:00 AM EDT [facility] NOTE: Presumptive Positive indicates a n onnegative test result by immunoassay screen. It is a preliminary result. [facility] recommends that a Presumptive Positive result be confirmed by an additional, more specific test such as mass spectrometry Name Value Range Interpretation Code Description [facility]s) Amphetamines 209.00NegativeNegative ng/mL 500.00 ng/mL [facility] Barbiturates -15.00NegativeNegative ng/mL 200.00 ng/mL [facility] Benzodiazepines -31.00NegativeNegative ng/mL 200.00 ng/mL [facility] Buprenorphine 0.80NegativeNegative ng/mL 10.00 ng/mL [facility] Cocaine Metabolites 175.00NegativeNegative ng/mL 300.00 ng/m L [facility] Cotinine 1671.00PRESUMPTIVE POSITIVEPRESUMP TIVE POSITIVE ng/mL 500.00 ng/mL [facility] EDDP -91.00NegativeNegative ng/mL 1000.00 ng/mL [facility] Ethyl Glucuronide 26.00NegativeNegative ng/mL 500.00 ng/mL [facility] Ethyl Alcohol 7.00NegativeNegative mg/dL 100.00 mg/dL [facility] Fentanyl 0.100NegativeNegative ng/mL 1.00 ng/mL [facility] Heroin (6-AM) -1.30NegativeNegative ng/mL 10.00 ng/mL [facility] Methadone -37.00NegativeNegative ng/mL 300.00 ng/mL [facility] Opiates -32.00NegativeNegative ng/mL 300.00 ng/mL [facility] Synthetic Opiates -13.00NegativeNegative ng/mL 100.00 ng/mL [facility] Phencyclidine -4.90NegativeNegative ng/mL 25.00 ng/mL [facility] Cannabinoids 7.80NegativeNegative ng/mL 20.00 ng/mL [facility] Tramadol -18.00NegativeNegative ng/mL 200.00 ng/mL [facility] Tricyclics 16.00NegativeNegative ng/mL 500.00 ng/mL [facility] Ecstasy (MDMA) -1.00NegativeNegative ng/mL 500.00 ng/mL [facility] ID Date Data Source [id number] 02/05/2020 12:00:00 AM EDT [facility] NOTE: Presumptive Positive indicates a n onnegative test result by immunoassay screen. It is a preliminary result. [facility] recommends that a Presumptive Positive result be confirmed by an additional, more specific test such as mass spectrometry Name Value Range Interpretation Code Description Data [facility](s) Supporting Document(s) Buprenorphine 0.000Negative - InconsistentNegative ng /mL 5.00 ng/mL Abnormal (applies to non-numeric results) [facility] Norbuprenorphine 0.620Negative - InconsistentNegati ve ng/mL 10.00 ng/mL Abnormal (applies to non-numeric results) [facility] Naloxone 0.000Negative - InconsistentNegative ng /mL 25.00 ng/mL Abnormal (applies to non-numeric results) [facility] ID Date Data Source [id number] 01/26/2020 05:30:20 PM EDT [facility] NT INFORMATIONPatient MRN Name Date of Age Gend*PT [id number] Denisha Harding 1990 30 years F CPEPPT Location Admission Date/Time Visit ID Attending [id number] 07/31/19 1842 --- --- EPI ID CSN Admitting Provider [id number] ---CPEP PSYCHIATRIC ASSESSMENTPatient Name: Denisha HardingPatient at CPE: 07/31/19 1614Psychiatrist First Contact: Yes (07/31/19 1807 : Otto Fisher MD)Chief ComplaintChief ComplaintPatient presents with Psychiatric Evaluation Patient states she is being bullied at [facility], states that otherpatients are calling her fat and she is bulimic. States she went to thesupervisor and they stated that her only option is to be discharged with anon-completition. [facility], but can't stay at [facility] anymore because of thebullying.Current StressorsCurrent Stressors: Pyschiatric SymptomsHistory of Present IllnessPatient InfoHistory provided by: patientHistory limited by: condition of the patientLanguage progressive care unit registered nurse used?: NoHPI: Mental Health ProblemPresenting Symptoms: anxiety, depression, bizarre behavior, poor impulse controlPatient accompanied by: law enforcementDegree of incapacity (severity) : mildDuration: 1 dayTiming: intermittentProgression: waxing and waningChronicity: recurrentContext : stressful life eventTreatment compliance: some of the timeTime since last psychoactive medication taken: 1 DAYRelieved by: antidepressants, antipsychoticsIneffective Treatments: Verbal de- escalationAssociated symptoms: anhedonia, anxietyRisk factors: hx of mental illnessHPI comments: ANXIETY AND DEPRESSIONCare Coordination/CollateralHistoryPast Psychiatric HistoryOutside Treatment HistoryTreatment History Location Date of Last Tx Type of Tx Tx Reason/Dx Tx Length of Stay Tx helpful?Drug/Alcohol Rehab? Records Requested? Comments [facility] 06/24/19, today 06/26/19 [facility] Current 07/30/2019 addiction/dual diagnosisPast Suicide / Self Harm HistorySelf Harm/Suicide HistoryHabitual Self Harm HistorySelf Harm Type Approximate Date/Age Additional CommentsCutting last time was 4 yrs agoBurning last time was 4 yrs agoOther (Comment) IV drug abuse No Self Harm HistorySuicide History No Suicide HistoryPsychosocial AssessmentSubstance Use SUBSTANCE ROUTE OF ADMINISTRATION AGE AT FIRST USE SUBSTANCE LAST TIME USEDSUBSTANCE PATTERN OF USE SUBSTANCE PATTERN OF ABSTINANCE Comments other (comments) smoking daily use for the past 3 mos ecstacy injection 07/14/2019 daily use for the past 15 days synthetic Jul 15 heroin Jul 11 alcohol couple of yearsCurrent Substance Use: No current substance use reportedFamily HistoryFamily HistoryProblem Relation Age of Onset Diabetes Mother Diabetes Father Diabetes Paternal GrandmotherSocial HistorySocial HistoryTobacco Use Smoking status: Current Every Day Smoker Packs/day: 1.00 Years: 15.00 Pack years: 15.00 Types: Cigarettes Last attempt to quit: 08/14/2018 Years since quittin.4 Smokeless tobacco: Never Used Tobacco comment: declinedSubstance Use Topics Alcohol use: No Drug use: Yes Types: Marijuana, IV Comment: santiago valle spikeSocial HistorySubstance and Sexual ActivitySexual Activity Not on fileRelationships and Living SituationRelationship StatusRelationship Status: Single, Never MarriedSexual PreferenceSexual Preference: HeterosexualParental StatusParental Status: No children, Has minor children NOT in custodyResidence/HomelessResides in : HomelessHomeless Location: In ShelterResides Senior Care: [facility]Was the patient homeless at any time within the past 6 months?: YesEducation / Employment / HistoryAcademicIs the patient attending school or receiving tutoring or instruction?: NoMilitary HistoryMilitary History: NoLegal HistoryLegal HistoryHistory of Legal Problems: YesCurrent [place] or Probation: YesParole/Prop Attendant's Name/Contact #: Jazzmine Chao [phone] Abuse/NeglectChildhood Abuse/NeglectWas patient abused or neglected as a child/adolescent?: NoOngoing Safety ConcernsOngoing Safety Concerns : NoScreeningSafe in Home: NoSafe in Relationship: YesAre you in immediate danger?: NoMedical/Surgical HistoryPast Medical History:Diagnosis Date Asthma Bipolar disorder with psychotic features 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 Collapse of lung 03/11/2018 Empyema lung 03/12/2018 Gestational diabetes 11/05/2012 History of drug abuse IBS (irritable bowel syndrome) Nephrotic syndrome Ovarian cyst Pleural effusion on right 03/11/2018 Rh negative state in antepartum period 09/21/2012 Sepsis due to group A Streptococcus 03/11/2018 UTI (urinary tract infection) 03/11/2018Past Surgical History:Procedure L aterality Date SECTION LUNG DECORTICATION Right 03/12/2018 Procedure: THORACOSCOPY W PULMONARY DECORTICATION RIGHT LUNG, BRONCHOSCOPY;Surgeon: Brant Headley MD; Laterality: Right; MD BOOKED AT 1230 WITHIN 1 HOURMD AVAIL NOW uterine ablationReview of SystemsPsychiatricPsychiatric: Depression, AnxietyReview of SystemsAllergic/Immunologic: No pertinent findingsCardiovascul ar : No pertinent findingsConstitutional Symptoms: No pertinent findingsEndocrine: No pertinent findingsEars, Nose, Mouth and Throat: No pertinent findingsEyes: No pertinent findingsGastrointestinal: No pertinent findingsGenitourinary: (vaginal discharge reported)Hemeatological/Lymphatic: No pertinent findingsMusculoskeletal: No pertinent findingsNeurological : No pertinent findingsRespiratory: No pertinent findingsSkin: No pertinent findingsVital SignsBP 113/66 | Pulse 76 | Temp 98.2 F (Oral) | Resp 18 | Ht 4' 9" | Wt 68 kg| SpO2 98% | BMI 32.46 kg/m Physical Dexterity CommentsMuscle Strength and Tone: Strength and tone within normal limitsGait and Station: Gait steady and station within normal limitsPsychiatric Specialty ExaminationAdult Initial Mental Status ExamConstitutional Exam: Appears Stated AgeBuild/Stature: WNLPosture: WNLHygiene/Grooming: Fair HygieneClothing: Appropriately DressedEye Contact: GoodSpeech: ClearPsychomotor Activity: WNLMood: DepressedAffect: Constric tedPerceptual Disturbances: NoneDelusions: NoneThought Process: CircumstantialThought Content: PreoccupiedSuicidal Ideation: Denies suicidal thoughtsHomicidal Ideation: Denies homicidal thoughtsRemote Memory: Deficits NotedRecent Memory: Deficits NotedInsight: PoorJudgment: PoorOrientation: Appropriately Oriented [id number] Toward Examiner: DefensiveAssociations: Loosening evidentFund of Knowledge: PoorConcentration: PoorAttention Span: PoorCognition: ImpairedLanguage: Fluent in EnglishAdult Risk of Suicide Screening:In the past three months, have you wished you were or wished you could goto sleep and not wake up?: NoIn the past three months, have you actually had any thoughts of killingyourself?: No3.In the past three months, have you been thinking about how you might do this?: No4.In the past three months, have you had these thoughts and had some intentionof acting on them?: No5.In the past three months, have you started to work out or worked out thedetails of how to kill yourself? Do you intend to carry out this plan?: No6.Have you done anything, started to do anything, or prepared to do anything toend your life?: No7.Have you made a suicide attempt in your lifetime (took action to end yourlife)? : NoRisk Assessment - Protective FactorsRisk Level Determination:: LowFirearmsWas threat made to harm self/others with a firearm: NoDoes the patient own or have access to firearms: NoDiagnosis1. Depressive disorderLabs Obtained /ResultsLabs ReviewedURINALYSIS - Abnormal; Notable for the following components: Result Value Leukocyte Esterase 1+ (*) Protein, UA 2+ (*) Epithelial Cells, UA 1+ (*) All other components within normal limitsDRUGS OF ABUSE, URINE (STAT, ER/INPATIENT)POCT QUICK YUKI URINEAssessment / Discharge PlanningAssessment / Discharge PlanningPlan/Assessment #1: Admit patient to CPAPPlan/Assessment #2: Take medications as prescribedPlan/Assessment #3: Supportive therapyPlan/Assessment Additional Info: PsychoeducationProgress Towards DischargeMDMNumber of Diagnosis or Management Options:[] Minimal [] Limited [] Multiple [] ExtensiveAmount/Complexity of Data Reviewed:[] Minimal [] Limited [] Multiple [] ExtensiveMore than 50% of this Evaluation in:[] Coordination of Care [] Treatment Planning [] Team Meeting [] Discharge Planning [] Other:[] Counseling [] Coping Skills [] Management Options [] Re:[] Medication Review [] Pt challenges need for medication [] Pt fearful of side effects [] Too early to evaluate effect [] No changes [] No side effectsBilling Code: [id number] signed byShayan Fagan MD01/26/20 [id number] Name Value Range Interpretation Code Description Data Judith rce(s) Supporting Document(s) Procedure Social History Code Duration Value Status Description Data Source(s ) Alcohol intake 01/05/2021 12:00:00 AM EDT Current non-d shanna of alcohol (finding) completed Current non-drinker of alcohol (finding) [facility] Alcohol intake 08/31/2020 12:00:00 AM EDT Current non-d shanna of alcohol (finding) completed Current non-drinker of alcohol (finding) [facility] Alcohol intake 08/30/2020 12:00:00 AM EDT No completed [facility] Cigarette pack-years 08/30/2020 12:00:00 AM EDT UNK completed [facility] Cigarettes smoked current (pack per day) - Reported 08/31/19 12:00:00 AM EDT UNK completed [facility] Smoking 08/30/2020 12:00:00 AM EDT Current every day smoker co mpleted Current every day smoker [facility] Alcohol intake 08/23/2020 12:00:00 AM EDT No completed [facility] Cigarette pack-years 08/23/2020 12:00:00 AM EDT UNK completed [facility] Cigarettes smoked current (pack per day) - Reported 08/24/19 12:00:00 AM EDT UNK completed [facility] Smoking 08/23/2020 12:00:00 AM EDT Current every day smoker co mpleted Current every day smoker [facility] Alcohol intake 08/21/2020 12:00:00 AM EST Current drinker of al cohol (finding) completed Current drinker of alcohol (finding) [facility] Tobacco use and exposure 08/21/2020 12:00:00 AM EST Never used co mpleted Never used [facility] Cigarette pack-years 08/21/2020 12:00:00 AM EST UNK completed [facility] Cigarettes smoked current (pack per day) - Reported 08/22/19 12:00:00 AM EST UNK completed [facility] Smoking 08/21/2020 12:00:00 AM EST Current every day smoker co mpleted Current every day smoker [facility] Alcohol intake 06/20/2020 12:00:00 AM EST No completed [facility] Cigarette pack-years 06/20/2020 12:00:00 AM EST UNK completed [facility] Cigarettes smoked current (pack per day) - Reported 06/20/19 12:00:00 AM EST UNK completed [facility] Smoking 06/20/2020 12:00:00 AM EST Current every day smoker co mpleted Current every day smoker [facility] Smoking 06/13/2020 12:00:00 PM EST Smokes tobacco daily (findi ng) completed Current Every Day Smoker [facility] ([facility]) Alcohol intake 05/04/2020 12:00:00 AM EST No completed [facility] Cigarette pack-years 05/04/2020 12:00:00 AM EST UNK completed [facility] Cigarettes smoked current (pack per day) - Reported 05/04/20 12:00:00 AM EST UNK completed [facility] Smoking 05/04/2020 12:00:00 AM EST Current every day smoker co mpleted Current every day smoker [facility] Alcohol intake 05/01/2020 12:00:00 AM EST No completed [facility] Cigarette pack-years 05/01/2020 12:00:00 AM EST UNK completed [facility] Cigarettes smoked current (pack per day) - Reported 05/01/20 12:00:00 AM EST UNK completed [facility] Smoking 05/01/2020 12:00:00 AM EST Current every day smoker co mpleted Current every day smoker [facility] Vital Signs ID Date Data Source UNK Name Value Range Interpretation Code Description Data Source(s) Systolic blood pressure 106 mm[Hg] 106 mm[Hg] [facility] Diastolic blood pressure 68 mm[Hg] 68 mm[Hg] [facility] Heart rate 55 /min 55 /min [facility] Respiratory rate 18 /min 18 /min [facility] Oxygen saturation in Arterial blood by Pulse oximetry 98 % 98 % [facility] Body temperature 36.11 Xenia 36.11 Xenia [facility] Body temperature 36.2 XENIA 36.2 XENIA [facility] ([facility]) Respiratory rate 18.0 /MIN 18.0 /MIN [facility] ([facility]) Systolic blood pressure 125.0 MM[HG] 125.0 MM[H G] [facility] ([facility]) Diastolic blood pressure 83.0 MM[HG] 83.0 MM[HG ] [facility] ([facility]) Heart rate 82.0 /MIN 82.0 /MIN [facility] ([facility]) Body temperature 97.1 [DEGF] 97.1 [DEGF] NET[facility] ([facility]) Oxygen saturation in Arterial blood by Pulse oximetry 98.0 % 98.0 % [facility] ([facility]) Systolic blood pressure 125 mm[Hg] 125 mm[Hg] [facility] Diastolic blood pressure 81 mm[Hg] 81 mm[Hg] [facility] Heart rate 63 /min 63 /min [facility] Respiratory rate 18 /min 18 /min [facility] Oxygen saturation in Arterial blood by Pulse oximetry 95 % 95 % [facility] Body temperature 36.83 Xenia 36.83 Xenia [facility] Body weight 108.863 kg 108.863 kg [facility] Body mass index (BMI) [Ratio] 51.94 kg/m2 51.94 kg/m2 [facility] Systolic blood pressure 118.0 MM[HG] 118.0 MM[H G] [facility] ([facility]) Oxygen saturation in Arterial blood by Pulse oximetry 99.0 % 99.0 % [facility] ([facility]) Diastolic blood pressure 85.0 MM[HG] 85.0 MM[HG ] [facility] ([facility]) Body weight 106.4 KG 106.4 KG [facility] ([employer]) Body temperature 98.7 [DEGF] 98.7 [DEGF] [facility] ([facility]) Body temperature 37.1 XENIA 37.1 XENIA [facility] Heart rate 52.0 /MIN 52.0 /MIN [facility] ([employer] [facility]) Respiratory rate 16.0 /MIN 16.0 /MIN [facility] ([facility]) Body mass index (BMI) [Ratio] 50.6 50.6 [facility] Body height 144.8 cm 144.8 cm [facility] [employer] Pain severity - 0-10 verbal numeric rating [Score] - Reported 0.0 S mckenzie 0.0 Scale [facility] ([facility]) Systolic blood pressure 131 mm[Hg] 131 mm[Hg] [facility] Diastolic blood pressure 83 mm[Hg] 83 mm[Hg] [facility] Heart rate 72 /min 72 /min [facility] Body temperature 35.17 Xenia 35.17 Xenia [facility] Respiratory rate 18 /min 18 /min [facility] Body height 144.8 cm 144.8 cm [facility] Body weight 105.688 kg 105.688 kg [facility] Body mass index (BMI) [Ratio] 50.42 kg/m2 50.42 kg/m2 [facility] Oxygen saturation in Arterial blood by Pulse oximetry 97 % 97 % [facility] Systolic blood pressure 95 mm[Hg] 95 mm[Hg] [facility] Diastolic blood pressure 60 mm[Hg] 60 mm[Hg] [facility] Heart rate 60 /min 60 /min [facility] Body temperature 36.78 Xenia 36.78 Xenia [facility] Respiratory rate 16 /min 16 /min [facility] Body weight 100.925 kg 100.925 kg [facility] Body mass index (BMI) [Ratio] 48.15 kg/m2 48.15 kg/m2 [facility] Oxygen saturation in Arterial blood by Pulse oximetry 97 % 97 % [facility] Systolic blood pressure 114 mm[Hg] 114 mm[Hg] [facility] Diastolic blood pressure 69 mm[Hg] 69 mm[Hg] [facility] Heart rate 72 /min 72 /min [facility] Body temperature 36.11 Xenia 36.11 Xenia [facility] Respiratory rate 18 /min 18 /min [facility] Body height 144.8 cm 144.8 cm [facility] Body weight 100.699 kg 100.699 kg [facility] Body mass index (BMI) [Ratio] 48.04 kg/m2 48.04 kg/m2 [facility] Oxygen saturation in Arterial blood by Pulse oximetry 96 % 96 % [facility] Systolic blood pressure 120 mm[Hg] 120 mm[Hg] [facility] Diastolic blood pressure 73 mm[Hg] 73 mm[Hg] [facility] Heart rate 76 /min 76 /min [facility] Body temperature 36.28 Xenia 36.28 Xenia [facility] Respiratory rate 20 /min 20 /min [facility] Body height 144.8 cm 144.8 cm [facility] Body weight 102.331 kg 102.331 kg [facility] Body mass index (BMI) [Ratio] 48.82 kg/m2 48.82 kg/m2 [facility] Oxygen saturation in Arterial blood by Pulse oximetry 95 % 95 % [facility] Body mass index (BMI) [Ratio] 48.0 48.0 [facility] ([facility]) Body weight 100.9 KG 100.[address] [facility] [employer] Systolic blood pressure 115.0 MM[HG] 115.0 MM[H G] [facility] ([facility] [employer]) Diastolic blood pressure 80.0 MM[HG] 80.0 MM[HG ] [facility] [employer] Pain severity - 0-10 verbal numeric rating [Score] - Reported 3.0 S mckenzie 3.0 Scale [facility] ([facility] [employer]) Body temperature 36.4 XENIA 36.4 XENIA [facility] ([employer]) Heart rate 69.0 /MIN 69.0 /MIN [facility] ([facility]) Respiratory rate 16.0 /MIN 16.0 /MIN [facility] ([facility] [employer]) Oxygen saturation in Arterial blood by Pulse oximetry 98.0 % 98.0 % [facility] ([facility] [employer]) Body height 144.8 cm 144.8 cm [facility] ([facility] [employer]) Body temperature 97.5 [DEGF] 97.5 [DEGF] [facility] ([facility]) ID Date Data Source [id number] 12/14/2020 06:21:54 PM T [facility] Name Value Range Interpretation Code Description Data Source(s) WEIGHT RECORDED 215 lb 215 lb [facility] Body height Measured 57 in 57 in [facility] ID Date Data Source [id number] 08/28/2020 09:54:13 AM T [facility] Name Value Range Interpretation Code Description Data Source(s) Body height Measured 57 in 57 in [facility] Patient Treatment Plan of Care Planned Activity Planned Date Details Description Data Source (s) Prednisone 10 MG Oral Tablet 11/21/2020 12:00:00 AM EDT [facility] Diclofenac Sodium 75 MG Delayed Release Oral Tablet 08/31/19 12:00:00 AM EDT [facility] Acetaminophen 325 MG Oral Tablet 08/30/2020 12:00:00 AM EDT [facility] NITROFURANTOIN, MACROCRYSTALS 25 MG / Ni trofurantoin, Monohydrate 75 MG Oral Capsule 08/25/2020 12:00:00 AM EDT [facility] Cephalexin 500 MG Oral Capsule 08/22/2020 12:00:00 AM EDT [facility] sodium chloride (preservative free) 0.9 % flush 10 mL 08/21/2020 06:24:49 PM EDT [facility] Acetaminophen 325 MG Oral Tablet 08/21/2020 12:00:00 AM [facility] Cephalexin 500 MG Oral Capsule 08/21/2020 [facility] 8.6 MG Oral Tablet 08/18/2020 12:00:00 AM EST [facility] ropinirole 0.25 MG Oral Tablet 08/18/2020 12:00:00 AM [facility] POLYETHYLENE GLYCOL 3350 142 MG/ML Oral Solution 08/18/2020 12:00:0 0 AM [facility] calcium polycarbophil 625 MG Oral Tablet 08/18/2020 12:00:00 AM EST [facility] montelukast 10 MG Oral Tablet 08/18/2020 12:00:00 AM EST [facility] Desmopressin Acetate 0.01 MG/ACTUAT Nasal [place] 08/18/2020 12:00:00 AM [facility] 30 ACTUAT umeclidinium 0.0625 MG/ACTUAT / vilanterol 0.025 MG/ACTUAT Dry Powder Inhaler [Anoro] 08/18/2020 12:00:00 AM EST [facility] albuterol (PROVENTIL HFA;VENTOLIN HFA) 108 (90 Base) M CG/ACT inhaler 08/18/2020 12:00:00 AM EST [facility] Trazodone Hydrochloride 150 MG Oral Tablet 08/09/2020 12:00:[address] [facility] Esomeprazole 20 MG Delayed Release Oral Capsule 07/19/2020 12:00:00 AM EST [facility] sennosides, INTERMEDIATE 8.6 MG Oral Tablet 06/20/2020 12:00:00 AM [facility] ropinirole 0.25 MG Oral Tablet 06/20/2020 12:00:00 AM [facility] Desmopressin Acetate 0.01 MG/ACTUAT Nasal [place] 06/20/2020 12:00:00 AM [facility] 30 ACTUAT umeclidinium 0.0625 MG/ACTUAT / vilanterol 0.025 MG/ACTUAT Dry Powder Inhaler [Anoro] 06/20/2020 12:00:00 AM [facility] albuterol (PROVENTIL HFA;VENTOLIN HFA) 108 (90 Base) M CG/ACT inhaler 06/20/2020 12:00:00 AM [facility] Esomeprazole 20 MG Delayed Release Oral Capsule 06/20/2020 12:00:00 AM [facility] Multiple Vitamins-Iron (MULTIVITAMIN WITH IRON) TABS 021 12:00:00 AM [facility] calcium polycarbophil 625 MG Oral Tablet 05/27/2020 12:00:00 AM [facility] POLYETHYLENE GLYCOL 3350 142 MG/ML Oral Solution 05/27/2020 12:00:0 0 AM [facility] montelukast 10 MG Oral Tablet 05/27/2020 12:00:00 AM [facility] quetiapine 100 MG Oral Tablet 05/04/2020 12:00:00 AM [facility] doxycycline hyclate 100 MG Oral Tablet 05/04/2020 12:00:00 AM [facility] quetiapine 25 MG Oral Tablet 04/26/2020 12:00:00 AM [facility] Multiple Vitamins-Iron (MULTIVITAMIN WITH IRON) TABS 020 12:00:00 AM [facility] Esomeprazole 20 MG Delayed Release Oral Capsule 04/25/2020 12:00:00 AM [facility] sennosides, INTERMEDIATE 8.6 MG Oral Tablet 04/25/2020 12:00:00 AM EST [facility] 30 ACTUAT umeclidinium 0.0625 MG/ACTUAT / vilanterol 0.025 MG/ACTUAT Dry Powder Inhaler [Anoro] 04/25/2020 12:00:00 AM EST [facility] albuterol (PROVENTIL HFA;VENTOLIN HFA) 108 (90 Base) M CG/ACT inhaler 04/25/2020 12:00:00 AM EST [facility] POLYETHYLENE GLYCOL 3350 142 MG/ML Oral Solution 04/25/2020 12:00:0 0 AM EST [facility] montelukast 10 MG Oral Tablet 04/25/2020 12:00:00 AM EST [facility] calcium polycarbophil 625 MG Oral Tablet 04/25/2020 12:00:00 AM EST [facility] Desmopressin Acetate 0.01 MG/ACTUAT Nasal [place] 04/12/2020 12:00:00 AM EST [facility] Esomeprazole 20 MG Delayed Release Oral Capsule 04/04/2020 12:00:00 AM EDT [facility] Clonidine Hydrochloride 0.1 MG Oral Tablet 04/03/2020 12:00:00 AM E DT [facility] benztropine mesylate 1 MG Oral Tablet 04/03/2020 12:00:00 AM EDT [facility] Ibuprofen 600 MG Oral Tablet 04/03/2020 12:00:00 AM EDT [facility] ropinirole 0.25 MG Oral Tablet 04/03/2020 12:00:00 AM EDT [facility] Guanfacine 1 MG Oral Tablet 03/29/2020 12:00:00 AM EDT [facility] 30 ACTUAT umeclidinium 0.0625 MG/ACTUAT / vilanterol 0.025 MG/ACTUAT Dry Powder Inhaler [Anoro] 03/21/2020 12:00:00 AM EDT [facility] 12 HR Bupropion Hydrochloride 150 MG Extended Release Oral Tablet 03/10/2020 12:00:00 AM EDT [facility] Acetaminophen 325 MG Oral Tablet 12/16/2019 12:00:00 AM EDT [facility] albuterol (PROVENTIL HFA;VENTOLIN HFA) 108 (90 Base) M CG/ACT inhaler 12/16/2019 12:00:00 AM EDT [facility] Albuterol 0.83 MG/ML Inhalant Solution 12/16/2019 12:00:00 AM EDT [facility] Albuterol 0.833 MG/ML / Ipratropium [place] 0.167 MG/M L Inhalant Solution 12/16/2019 12:00:00 AM EDT [facility] Ascorbic Acid 60 MG / Beta Carotene 5000 UNT / Copper Sulfate 40 MG / dl-alpha tocopheryl acetate 30 UNT / Sodium Selenite 0.04 MG / Zinc Oxide 40 MG Oral Tablet 10/22/2019 12:00:00 AM EDT [facility] calcium polycarbophil 625 MG Oral Tablet 10/22/2019 12:00:00 AM EDT [facility] 60 ACTUAT Fluticasone propionate 0.25 MG /ACTUAT / salmeterol 0.05 MG/ACTUAT Dry Powder Inhaler 10/22/2019 12:00:00 AM EDT [facility] montelukast 10 MG Oral Tablet 10/22/2019 12:00:00 AM EDT [facility] Trazodone Hydrochloride 100 MG Oral Tablet 10/14/2019 12:00:00 AM E DT [facility] quetiapine 100 MG Oral Tablet 10/14/2019 12:00:00 AM EDT [facility] Trazodone Hydrochloride 50 MG Oral Tablet [facility] olanzapine 10 MG Oral Tablet [facility] ferrous sulfate 325 MG Oral Tablet [facility]
[2021-03-23 22:16] LABS: HEMATOCRIT 37.3 % (36.0-47.0); HEMOGLOBIN 12.6 g/dl (12.0-15.5); MEAN CORPUSCULAR HEMOGLOBIN 30.2 pg (27.0-33.0); MEAN CORPUSCULAR HGB CONC 33.8 g/dl (32.0-36.5); MEAN CORPUSCULAR VOLUME 89.4 fl (80.0-96.0); PLATELET COUNT, AUTOMATED 267 10^3/uL (150-450); RED BLOOD COUNT 4.17 10^6/uL (4.00-5.40); WHITE BLOOD COUNT 7.9 10^3/uL (4.0-10.0)
[2021-03-23 22:53] LABS: HCG, SERUM QUALITATIVE NEGATIVE (NEGATIVE)
[2021-03-23 22:56] LABS: ACETAMINOPHEN LEVEL < 2.0 UG/ML (10.0-30.0); ALT/SGPT 41 U/L (12-78); BILIRUBIN,DIRECT < 0.1 MG/DL (0.0-0.2); BILIRUBIN,TOTAL 0.2 MG/DL (0.2-1.0); BLOOD UREA NITROGEN 22 MG/DL (7-18); CALCIUM LEVEL 8.4 MG/DL (8.5-10.1); CARBON DIOXIDE LEVEL 28 MEQ/L (21-32); CHLORIDE LEVEL 104 MEQ/L (98-107); CREATININE FOR GFR 0.72 MG/DL (0.55-1.30); ETHYL ALCOHOL (ETHANOL) < 0.003 % (0.000-0.010); GLOMERULAR FILTRATION RATE > 60.0 (>60); GLUCOSE, FASTING 138 MG/DL (70-100); POTASSIUM SERUM 4.9 MEQ/L (3.5-5.1); SALICYLATE LEVEL < 1.7 MG/DL (5.0-30.0); SODIUM LEVEL 138 MEQ/L (136-145); TOTAL PROTEIN 6.9 GM/DL (6.4-8.2)
[2021-03-23] MEDS ORDERED: EFFE37.5 PO (23:13)
[2021-03-23] MEDS ORDERED: LAMO5CHW PO (23:16)
[2021-03-23] MEDS ORDERED: requip (23:17)
[2021-03-23] MEDS ORDERED: HYDR-3363 PO (23:18)
[2021-03-23] MEDS ORDERED: CLONI1TA PO (23:25)
[2021-03-23] MEDS ORDERED: trazadone (23:25)
[2021-03-23] MEDS ORDERED: SUBO4MIS SL (23:27)
[2021-03-24 00:09] LABS: AMPHETAMINES LEVEL URINE NEGATIVE (NEGATIVE); BARBITURATES URINE NEGATIVE (NEGATIVE); BENZODIAZEPINES URINE NEGATIVE (NEGATIVE); CANNABINOIDS URINE NEGATIVE (NEGATIVE); COCAINE METABOLITE URINE NEGATIVE (NEGATIVE); METHADONE URINE NEGATIVE (NEGATIVE); OPIATES URINE NEGATIVE (NEGATIVE); PHENCYCLIDINE URINE NEGATIVE (NEGATIVE)
--- OUTSIDE RECORDS SUMMARY | 2021-03-24 03:12 | CCD ---
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 [facility] ([facility]) Prazosin 1 MG Oral Capsule [Minipress] Minipress 08/09/2020 05:0 0:00 AM EST 1.0 Capsule Oral active [facility]SM[facility] ([facility]) quetiapine 25 MG Oral Tablet [Seroquel] SEROquel 08/09/2020 05: 00:00 AM EST 1.0 Tablet Oral active [facility]SM[facility] ([facility]) lamotrigine 25 MG Oral Tablet lamoTRIgine 08/09/2020 05:00:[address] 2.0 Tablet Oral active [facility] ([facility]) topiramate 25 MG Oral Capsule [Topamax] Topamax 08/09/2020 05: 00:00 AM EST 1.0 Capsule Oral active [facility] ([facility]) Hydroxyzine Pamoate 25 MG Oral Capsule [Vistaril] Vistaril 08/09/2020 05:00:00 AM EST 1.0 Capsule Oral active [facility]SM ART ([facility]) Prazosin 5 MG Oral Capsule [Minipress] Minipress 08/09/2020 05:0 0:00 AM EST 1.0 Capsule Oral active [facility] ([facility]) Buprenorphine 4 MG / Naloxone 1 MG Oral Strip [Suboxone] Sub oxone 08/09/2020 05:00:00 AM EST 1.0 Film Sublingual active [facility] ([facility]) Clonidine Hydrochloride 0.1 MG Oral Tablet cloNIDine HCl 08/09/2020 05:00:00 AM EST 1.0 Tablet Oral active [facility]SMA RT ([facility]) Trazodone Hydrochloride 150 MG Oral Tablet traZODone ( DESYREL) 150 MG tablet traZODone (DESYREL) 150 MG tablet 08/09/2020 12:00:00 AM EST active [facility] Esomeprazole 20 MG Delayed Release Oral Capsule esomeprazole (NEXIUM) 20 MG capsule esomeprazole (NEXIUM) 20 MG capsule 07/19/2020 12:00:00 AM EST active [facility] Buprenorphine 4 MG / Naloxone 1 MG Oral Strip [Suboxone] Sub oxone 07/11/2020 05:00:00 AM EST 1.0 Film Sublingual active NETSMART ([facility]) Buprenorphine 4 MG / Naloxone 1 MG Oral Strip [Suboxone] Sub oxone 07/11/2020 05:00:00 AM EST 1.0 Film Sublingual active [facility] ([facility]) Buprenorphine 4 MG / Naloxone 1 MG Oral Strip [Suboxone] Sub oxone 07/11/2020 05:00:00 AM EST 1.0 Film Sublingual active [facility] ([facility]) topiramate 25 MG Oral Capsule [Topamax] Topamax 06/27/2020 05: 00:00 AM EST 1.0 Capsule Oral active [facility] ([facility]) 30 ACTUAT umeclidinium 0.0625 MG/ACTUAT / vilanterol 0.025 MG/ACTUAT Dry Powder Inhaler [Anoro] ANORO ELLIPTA 62.5-25 MCG/INH inhaler ANORO ELLIPTA 62.5-25 MCG/INH inhaler 06/20/2020 12:00:00 AM EST 1 {puff} Inhalation aborted Moderate persistent asthma without complication Inhale 1 puf f daily [facility] Moderate persistent asthma without compl ication albuterol (PROVENTIL HFA;VENTOLIN HFA) 108 (90 Base) M CG/ACT inhaler [id number] 06/20/2020 12:00:00 AM EST 2 {puff} Inhalation aborted Moderate persistent asthma without complication Inhale 2 puffs every 4 (four) hours as needed for wheezing [facility] Moderate persistent asthma without compl ication Multiple Vitamins-Iron (MULTIVITAMIN WITH IRON) TABS 0904-05 31-60 06/20/2020 12:00:00 AM EST 1 {tbl} Oral active Polysubstance ab use Take 1 tablet by mouth daily [facility] Polysubstance abuse Desmopressin Acetate 0.01 MG/ACTUAT [place] desmopressin (DDAVP NASAL) 0.01 % solution desmopressin (DDAVP NASAL) 0.01 % solution 06/20/2020 12:00:00 AM EST 10 ug Nasal aborted Von Willebrand disease 1 spray (10 mcg total) into each nostril 2 (two) times a day [facility] Von Willebrand disease sennosides, SNF 8.6 MG Oral Tablet senna (SENOKOT) 8.6 MG TABS senna (SENOKOT) 8.6 MG TABS 06/20/2020 12:00:00 AM EST 8.6 mg Oral a borted Irritable bowel syndrome with constipation Take 1 tablet (8.6 mg tota l) by mouth daily For treatment of constipation, hold for loose stools [facility] Irritable bowel syndrome with constipati on ropinirole 0.25 MG Oral Tablet rOPINIRole (REQUIP) 0.2 5 MG tablet rOPINIRole (REQUIP) 0.25 MG tablet 06/20/2020 12:00:00 AM EST aborted Restless leg syndrome TAKE ONE TABLET BY MOUTH THR EE TIMES A DAY NEEDED FOR RESTLESS LEGS [facility] Restless leg syndrome Esomeprazole 20 MG Delayed Release Oral Capsule esomeprazole (SM ESOMEPRAZOLE MAGNESIUM) 20 MG capsule esomeprazole (SM ESOMEPRAZOLE MAGNESIUM) 20 MG capsule 06/20/2020 12:00:00 AM EST 20 mg Oral active GERD without esophagitis Take 1 capsule (20 mg total) by mouth daily [facility] GERD without esophagitis Trazodone Hydrochloride 150 MG Oral Tablet traZODone hydroch loride 06/13/2020 05:00:00 AM EST 1.0 Tablet Oral active [facility] ([facility]) Buprenorphine 4 MG / Naloxone 1 MG Oral Strip [Suboxone] Sub oxone 06/13/2020 05:00:00 AM EST 1.0 Film Sublingual active [facility] ([facility]) Clonidine Hydrochloride 0.1 MG Oral Tablet cloNIDine HCl 05/30/2020 05:00:00 AM EST 1.0 Tablet Oral active [facility] ([facility]) Prazosin 1 MG Oral Capsule [Minipress] Minipress 05/30/2020 05:0 0:00 AM EST 1.0 Capsule Oral active [facility] ([facility]) Trazodone Hydrochloride 100 MG Oral Tablet traZODone hydroch loride 05/30/2020 05:00:00 AM EST 1.0 Tablet Oral active [facility] ([facility]) quetiapine 25 MG Oral Tablet [Seroquel] SEROquel 05/30/2020 05: 00:00 AM EST 1.0 Tablet Oral active [facility] ([facility]) lamotrigine 25 MG Oral Tablet lamoTRIgine 05/30/2020 05:00:[address] 2.0 Tablet Oral active [facility] ([facility]) 24 HR Bupropion Hydrochloride 150 MG Extended Release Oral Tablet [Wellbutrin] Wellbutrin XL 05/30/2020 05:00:00 AM EST 1.0 Tablet Oral acti ve [facility] ([facility]) Hydroxyzine Pamoate 25 MG Oral Capsule [Vistaril] Vistaril 05/30/2020 05:00:00 AM EST 1.0 Capsule Oral active [facility] ([facility]) Buprenorphine 4 MG / Naloxone 1 MG Oral Strip [Suboxone] Sub oxone 05/30/2020 05:00:00 AM EST 1.0 Film Sublingual active [facility] ([facility]) Buprenorphine 4 MG / Naloxone 1 MG Oral Strip Buprenorphine- Naloxone 05/30/2020 05:00:00 AM EST 1.0 Film Sublingual active [facility] ([facility]) calcium polycarbophil 625 MG Oral Tablet polycarbophil (FIBER-LAX) 625 MG tablet polycarbophil (FIBER-LAX) 625 MG tablet 05/27/2020 12:00:00 AM EST 625 mg Oral aborted Irritable bowel syndrome with consti pation Take 1 tablet (625 mg total) by mouth daily [facility] Irritable bowel syndrome with constipati on montelukast 10 MG Oral Tablet montelukast (SINGULAIR) 10 MG tablet montelukast (SINGULAIR) 10 MG tablet 05/27/2020 12:00:00 AM EST 10 mg Oral aborted Moderate persistent asthma without complication Take 1 tablet (10 mg total) by mouth daily [facility] Moderate persistent asthma without compl ication POLYETHYLENE GLYCOL 3350 142 MG/ML Oral Solution polyethylene glycol (GLYCOLAX) 17 GM/SCOOP powder polyethylene glycol (GLYCOLAX) 17 GM/SCOOP powder 05/10 12:00:00 AM EST 17 g Oral aborted Irri table bowel syndrome with constipation Take 17 g by mouth daily 1 capful= 17 g [facility] Irritable bowel syndrome with constipati on Buprenorphine 4 MG / Naloxone 1 MG Oral Strip Buprenorphine- Naloxone 05/17/2020 05:00:00 AM EST 1.0 Film Sublingual active [facility] ([facility]) Prazosin 5 MG Oral Capsule [Minipress] Minipress 05/17/2020 05:0 0:00 AM EST 1.0 Capsule Oral active [facility] ([facility]) lamotrigine 25 MG Oral Tablet lamoTRIgine 05/17/2020 05:00:[address] 2.0 Tablet Oral active [facility] ([facility]) quetiapine 25 MG Oral Tablet [Seroquel] SEROquel 05/17/2020 05: 00:00 AM EST 1.0 Tablet Oral active [facility] ([facility]) Prazosin 1 MG Oral Capsule [Minipress] Minipress 05/17/2020 05:0 0:00 AM EST 1.0 Capsule Oral active [facility] ([facility]) Clonidine Hydrochloride 0.1 MG Oral Tablet cloNIDine HCl 05/17/2020 05:00:00 AM EST 1.0 Tablet Oral active [facility] ([facility]) Hydroxyzine Pamoate 25 MG Oral Capsule [Vistaril] Vistaril 05/17/2020 05:00:00 AM EST 1.0 Capsule Oral active [facility]SM ART ([facility]) 24 HR Bupropion Hydrochloride 150 MG Extended Release Oral Tablet [Wellbutrin] Wellbutrin XL 05/17/2020 05:00:00 AM EST 1.0 Tablet Oral acti ve [facility]SMART ([facility]) Trazodone Hydrochloride 100 MG Oral Tablet traZODone hydroch loride 05/17/2020 05:00:00 AM EST 1.0 Tablet Oral active [facility] ([facility]) quetiapine 100 MG Oral Tablet QUEtiapine (SEROQUEL) 10 0 MG tablet QUEtiapine (SEROQUEL) 100 MG tablet 05/04/2020 12:00:00 AM EST 100 mg Oral aborted Medication refill Take 1 tablet (100 mg total) by mouth 2 (two) times a day [facility] Medication refill doxycycline hyclate 100 MG Oral Tablet doxycycline ( BRA-TABS) 100 MG tablet doxycycline (VIBRA-TABS) 100 MG tablet 05/04/2020 12:00:00 AM EST 1 00 mg Oral active Lymphadenitis Take 1 tablet (100 mg total) by mouth 2 (two) times a day for 10 days [facility] Lymphadenitis Buprenorphine 4 MG / Naloxone 1 MG Oral Strip Buprenorphine- Naloxone 05/03/2020 05:00:00 AM EST 1.0 Film Sublingual active [facility]SMART ([facility]) quetiapine 25 MG Oral Tablet QUEtiapine (SEROQUEL) 25 MG tablet QUEtiapine (SEROQUEL) 25 MG tablet 04/26/2020 12:00:00 AM EST active 2 (two) times a day [facility] Buprenorphine 4 MG / Naloxone 1 MG Oral Strip Buprenorphine- Naloxone 04/25/2020 05:00:00 AM EST 1.0 Film Sublingual active [facility]SMART ([facility]) Esomeprazole 20 MG Delayed Release Oral Capsule SM ESOMEPRAZOLE MAGNESIUM 20 MG capsule SM ESOMEPRAZOLE MAGNESIUM 20 MG capsule 04/25/2020 12:00:[address] 20 mg Oral aborted GERD without esophagitis Take 1 capsule (20 mg total) by mouth daily [facility] GERD without esophagitis Multiple Vitamins-Iron (MULTIVITAMIN WITH IRON) TABS 0904-05 31-60 04/25/2020 12:00:00 AM EST 1 {tbl} Oral aborted Polysubstance ab use Take 1 tablet by mouth daily [facility] Polysubstance abuse 30 ACTUAT umeclidinium 0.0625 MG/ACTUAT / vilanterol 0.025 MG/ACTUAT Dry Powder Inhaler [Anoro] ANORO ELLIPTA 62.5-25 MCG/INH inhaler ANORO ELLIPTA 62.5-25 MCG/INH inhaler 04/25/2020 12:00:00 AM EST 1 {puff} Inhalation aborted Moderate persistent asthma without complication Inhale 1 puf f daily [facility] Moderate persistent asthma without compl ication sennosides, SNF 8.6 MG Oral Tablet senna (SENOKOT) 8.6 MG TABS senna (SENOKOT) 8.6 MG TABS 04/25/2020 12:00:00 AM EST 8.6 mg Oral a borted Irritable bowel syndrome with constipation Take 1 tablet (8.6 mg tota l) by mouth daily For treatment of constipation, hold for loose stools [facility] Irritable bowel syndrome with constipati on POLYETHYLENE GLYCOL 3350 142 MG/ML Oral Solution polyethylene glycol (GLYCOLAX) 17 GM/SCOOP powder polyethylene glycol (GLYCOLAX) 17 GM/SCOOP powder 04/10 12:00:00 AM EST 17 g Oral active Irri table bowel syndrome with constipation Take 17 g by mouth daily 1 capful= 17 g [facility] Irritable bowel syndrome with constipati on montelukast 10 MG Oral Tablet montelukast (SINGULAIR) 10 MG tablet montelukast (SINGULAIR) 10 MG tablet 04/25/2020 12:00:00 AM EST 10 mg Oral active Moderate persistent asthma without complication Take 1 tablet (10 mg total) by mouth daily [facility] Moderate persistent asthma without compl ication albuterol (PROVENTIL HFA;VENTOLIN HFA) 108 (90 Base) M CG/ACT inhaler [id number] 04/25/2020 12:00:00 AM EST 2 {puff} Inhalation aborted Moderate persistent asthma without complication Inhale 2 puffs every 4 (four) hours as needed for wheezing [facility] Moderate persistent asthma without compl ication calcium polycarbophil 625 MG Oral Tablet polycarbophil (FIBER-LAX) 625 MG tablet polycarbophil (FIBER-LAX) 625 MG tablet 04/25/2020 12:00:00 AM EST 625 mg Oral active Irritable bowel syndrome with consti pation Take 1 tablet (625 mg total) by mouth daily [facility] Irritable bowel syndrome with constipati on Buprenorphine 4 MG / Naloxone 1 MG Oral Strip Buprenorphine- Naloxone 04/19/2020 05:00:00 AM EST 1.0 Film Sublingual active [facility]SM[facility] ([facility]) Desmopressin Acetate 0.01 MG/ACTUAT Nasal [place] [DDAVP] DDAV P 04/12/2020 05:00:00 AM EST 2.0 [place] Nasal active [facility] ([facility]) ropinirole 0.25 MG Oral Tablet rOPINIRole HCl 04/12/2020 05:00:00 A M EST 1.0 Tablet Oral active [facility] ([facility]) Clonidine Hydrochloride 0.1 MG Oral Tablet cloNIDine HCl 04/12/2020 05:00:00 AM EST 1.0 Tablet Oral active [facility] ([facility]) Ibuprofen 600 MG Oral Tablet Ibuprofen 04/12/2020 05:00:00 AM EST 1.0 Tablet Oral active NETSMART ( [facility]) Esomeprazole 20 MG Delayed Release Oral Capsule Esomeprazole Magnesium 04/12/2020 05:00:00 AM EST 1.0 Capsule Oral active [facility] ([facility]) Buprenorphine 8 MG / Naloxone 2 MG Oral Strip [Suboxone] Sub oxone 04/12/2020 05:00:00 AM EST 1.0 Film Sublingual active [facility] ([facility]) Prazosin 5 MG Oral Capsule [Minipress] Minipress 04/12/2020 05:0 0:00 AM EST 1.0 Capsule Oral active [facility] ([facility]) Albuterol Sulfate HFA 04/12/2020 05:00:00 AM EST 2.0 Puf f Inhalation active [facility] ([facility]) lamotrigine 25 MG Oral Tablet lamoTRIgine 04/12/2020 05:00:[address] 2.0 Tablet Oral active [facility] ([facility]) Trazodone Hydrochloride 100 MG Oral Tablet traZODone hydroch loride 04/12/2020 05:00:00 AM EST 1.0 Tablet Oral active [facility] ([facility]) 7 ACTUAT umeclidinium 0.0625 MG/ACTUAT / vilanterol 0.025 MG/ACTUAT Dry Powder Inhaler [Anoro] Anoro Ellipta 04/12/2020 05:00:00 AM EST 1.0 [place] I nhalation active [facility]SM[facility] ([facility]) quetiapine 25 MG Oral Tablet [Seroquel] SEROquel 04/12/2020 05: 00:00 AM EST 1.0 Tablet Oral active [facility]SM[facility] ([facility]) Hydroxyzine Pamoate 25 MG Oral Capsule [Vistaril] Vistaril 04/12/2020 05:00:00 AM EST 1.0 Capsule Oral active NETSM ART ([facility]) 24 HR Bupropion Hydrochloride 150 MG Extended Release Oral Tablet [Wellbutrin] Wellbutrin XL 04/12/2020 05:00:00 AM EST 1.0 Tablet Oral acti ve [facility]SMART ([facility]) montelukast 10 MG Oral Tablet [Singulair] Singulair 2019 05:00:00 AM EST 1.0 Tablet Oral active [facility]SM ART ([facility]) Narcan 04/12/2020 05:00:00 AM EST 1.0 [place] Nasal activ e [facility]ART ([facility]) topiramate 25 MG Oral Capsule [Topamax] Topamax 04/12/2020 05: 00:00 AM EST 1.0 Capsule Oral active [facility] ([facility]) Prazosin 1 MG Oral Capsule [Minipress] Minipress 04/12/2020 05:0 0:00 AM EST 1.0 Capsule Oral active [facility]SM[facility] ([facility]) Desmopressin Acetate 0.01 MG/ACTUAT [place] desmopressin (DDAVP NASAL) 0.01 % solution desmopressin (DDAVP NASAL) 0.01 % solution 04/12/2020 12:00:00 AM EST aborted [facility] olanzapine 10 MG Oral Tablet [Zyprexa] ZyPREXA 04/07/2020 04:0 0:00 AM EDT 1.0 Tablet Oral active [facility]SM[facility] ([facility]) Buprenorphine 8 MG / Naloxone 2 MG Oral Strip [Suboxone] Sub oxone 04/07/2020 04:00:00 AM EDT 1.0 Film Sublingual active [facility] ([facility]) Buprenorphine 8 MG / Naloxone 2 MG Oral Strip [Suboxone] Sub oxone 04/05/2020 04:00:00 AM EDT 1.0 Film Sublingual active [facility]SM[facility] ([facility]) montelukast 10 MG Oral Tablet [Singulair] Singulair 2019 04:00:00 AM EDT 1.0 Tablet Oral active [facility]SM ART ([facility]) Esomeprazole 20 MG Delayed Release Oral Capsule SM ESOMEPRAZOLE MAGNESIUM 20 MG capsule SM ESOMEPRAZOLE MAGNESIUM 20 MG capsule 04/04/2020 12:00:00 AM E DT 20 mg Oral aborted Take 20 mg by mouth [facility] Clonidine Hydrochloride 0.1 MG Oral Tablet cloNIDine ( CATAPRES) 0.1 MG tablet cloNIDine (CATAPRES) 0.1 MG tablet 04/03/2020 12:00:00 AM EDT 0.1 mg Oral active Take 0.1 mg by mouth [facility] benztropine mesylate 1 MG Oral Tablet benztropine (COG ENTIN) 1 MG tablet benztropine (COGENTIN) 1 MG tablet 04/03/2020 12:00:00 AM EDT active TAKE ONE TABLET BY MOUTH THREE TIMES A D AY NEEDED FOR EPS [facility] Ibuprofen 600 MG Oral Tablet ibuprofen (ADVIL,MOTRIN) 600 MG tablet ibuprofen (ADVIL,MOTRIN) 600 MG tablet 04/03/2020 12:00:00 AM EDT active TAKE ONE TABLET BY MOUTH THREE TIMES A DAY NEEDED FOR PAIN [facility] ropinirole 0.25 MG Oral Tablet rOPINIRole (REQUIP) 0.2 5 MG tablet rOPINIRole (REQUIP) 0.25 MG tablet 04/03/2020 12:00:00 AM EDT aborted TAKE ONE TABLET BY MOUTH THREE TIMES A DAY NEEDED FOR RESTLESS LEGS [facility] Guanfacine 1 MG Oral Tablet guanFACINE (TENEX) 1 MG ta blet guanFACINE (TENEX) 1 MG tablet 03/29/2020 12:00:00 AM EDT aborted [facility] 30 ACTUAT umeclidinium 0.0625 MG/ACTUAT / vilanterol 0.025 MG/ACTUAT Dry Powder Inhaler [Anoro] ANORO ELLIPTA 62.5-25 MCG/INH inhaler ANORO ELLIPTA 62.5-25 MCG/INH inhaler 03/21/2020 12:00:00 AM EDT aborted [facility] 12 HR Bupropion Hydrochloride 150 MG Ext ended Release Oral Tablet buPROPion (WELLBUTRIN SR) 150 MG 12 hr tablet buPROPion (WELLBUTRIN SR) 150 MG 12 hr tablet 03/10/2020 12:00:00 AM EDT aborted [facility] Buprenorphine 8 MG / Naloxone 2 MG Oral Strip [Suboxone] Sub oxone 02/03/2020 04:00:00 AM EDT 1.0 Film Sublingual active NETSMART ([facility]) Acetaminophen 325 MG Oral Tablet acetaminophen (TYLENO L) 325 MG tablet acetaminophen (TYLENOL) 325 MG tablet 12/16/2019 12:00:00 AM EDT 97 5 mg Oral aborted Take 3 tablets (975 mg total) by mouth every 6 (six) hours as needed for pain [facility] Albuterol 0.833 MG/ML / Ipratropium Brom bea 0.167 MG/ML Inhalant Solution ipratropium-albuterol (DUO-NEB) 0.5-2.5 mg/mL nebulizer ipratropium-albuterol (DUO-NEB) 0.5-2.5 mg/mL nebulizer 12/16/2019 12:00:00 AM EDT 3 mL aborted Take 3 mL by nebulization every 6 (six) hours [facility] Albuterol 0.83 MG/ML Inhalant Solution a lbuterol (PROVENTIL) (2.5 MG/3ML) 0.083% nebulizer solution albuterol (PROVENTIL) (2.5 MG/3ML) 0.083 % nebulizer solution 12/16/2019 12:00:00 AM EDT 2.5 mg aborted Take 3 mL (2.5 mg total) by nebulization every 4 (four) hours as needed for shortness of breath [facility] albuterol (PROVENTIL HFA;VENTOLIN HFA) 108 (90 Base) M CG/ACT inhaler [id number] 12/16/2019 12:00:00 AM EDT 2 {puff} Inhalation aborted Inhale 2 puffs every 4 (four) hours as needed for wheezing [facility] Buprenorphine 5.7 MG / Naloxone 1.4 MG Sublingual Tablet [Zu bsolv] Zubsolv 11/04/2019 04:00:00 AM EDT 1.0 Tablet Sublingual active NETSMART ([facility]) Trazodone Hydrochloride 100 MG Oral Tablet traZODone hydroch loride 11/04/2019 04:00:00 AM EDT 1.0 Tablet Oral active [facility]SM[facility] ([facility]) montelukast 10 MG Oral Tablet montelukast (SINGULAIR) 10 MG tablet montelukast (SINGULAIR) 10 MG tablet 10/22/2019 12:00:00 AM EDT 10 mg Oral aborted Moderate asthma, unspecified whether complicated, unspecified whether persistent Take 1 tablet (10 mg total) by mouth mimi ly [facility] Moderate asthma, unspecified whether com plicated, unspecified [...] 1 tablet by mouth daily with breakfast [facility] Irritable bowel syndrome with constipati on calcium polycarbophil 625 MG Oral Tablet polycarbophil (FIBER-LAX) 625 MG tablet polycarbophil (FIBER-LAX) 625 MG tablet 10/22/2019 12:00:00 AM EDT 625 mg Oral aborted Irritable bowel syndrome with consti pation Take 1 tablet (625 mg total) by mouth daily [facility] Irritable bowel syndrome with constipati on 60 ACTUAT Fluticasone propionate 0.25 MG /ACTUAT / salmeterol 0.05 MG/ACTUAT Dry Powder Inhaler fluticasone-salmeterol (ADVAIR) 250-50 MCG/DOSE DISKUS fluticasone-salmeterol (ADVAIR) 250-50 MCG/DOSE DISKUS 10/22/2019 12:00:00 AM EDT 1 {puff} Inhalation aborted Moderate asthma, unspecified whether complicated, unspecified whether persistent Inhale 1 puff 2 (two) times a day [facility] Moderate asthma, unspecified whether com plicated, unspecified whether persistent quetiapine 100 MG Oral Tablet QUEtiapine (SEROQUEL) 10 0 MG tablet QUEtiapine (SEROQUEL) 100 MG tablet 10/14/2019 12:00:00 AM EDT 100 mg Oral aborted Take 100 mg by mouth 2 (two) times a day [facility] Trazodone Hydrochloride 100 MG Oral Tablet traZODone ( DESYREL) 100 MG tablet traZODone (DESYREL) 100 MG tablet 10/14/2019 12:00:00 AM EDT 100 mg Oral aborted Take 100 mg by mouth nightly [place] [facility] with 50 mg (total dose : 150 mg) [facility] olanzapine 10 MG Oral Tablet OLANZapine (ZYPREXA) 10 M G tablet OLANZapine (ZYPREXA) 10 MG tablet 10 mg Oral aborted Take 10 mg by mouth nightly [facility] ferrous sulfate 325 MG Oral Tablet ferrous sulfate 325 (65 FE) MG tablet ferrous sulfate 325 (65 FE) MG tablet 325 mg Oral aborted Take 325 mg by mouth daily [facility] Trazodone Hydrochloride 50 MG Oral Tablet traZODone (D ESYREL) 50 MG tablet traZODone (DESYREL) 50 MG tablet 50 mg Oral abort ed Take 50 mg by mouth nightly Takes with 100 mg (total dose : 150 mg) [facility] Insurance Providers Payer name Policy type / Coverage type Policy ID Covered democrat ID Covered democrat's relationship to lay Policy Lay Plan Information SELF PAY NOT NEEDED Patient is Insured NOT NEEDED [facility] DIRECT PCP [id number] Patient is Ins ured [id number] [facility] DIRECT PCP 7 Patient is Insur ed 7 [facility] I [id number] Self [id number] [facility] [id number] SP [id number] [facility] [id number] SP [id number] MEDICAID [id number] Self [id number] [facility] I [id number] Self [id number] [facility] [id number] SP [id number] [facility] [id number] SP [id number] [facility] COMMUNITY PLAN [id number] SP [id number] [facility] Comm Plan Medicaid F [id number] SELF [id number] [facility] COMMUNITY PLAN [id number] SP [id number] MEDICAID [id number] Dian [id number] MEDICAID [id number] xxxxxxxx [id number] [facility] COMMUNITY PLAN [id number] SP [id number] [place] [id number] SP [id number] [id number] MEDICAID [id number] xxxxxxxxxxx [id number] BONG [id number] SP [id number] BONG [id number] SP [id number] BONG MEDICAID [id number] Dian 7 [id number] I [id number] Self [id number] [employer] [id number] Self [id number] BONG [id number] SP [id number] BONG [id number] SP [id number] [employer] [id number] Self [id number] BONG I [id number] Self [id number] BONG I [id number] Self [id number] BONG [id number] SP [id number] SELF PAY BONG [id number] SP [id number] SELF PAY BONG [id number] SP [id number] SELF PAY BONG [id number] SP [id number] SELF PAY BONG [id number] SP [id number] SELF PAY BONG [id number] SP [id number] SELF PAY INSURANCE COVID-19 COVID Dian C OVID INSURANCE COVID-19 [id number] INSURANCE COVID-19 COVID Dian C OVID [place] Medicaid F [id number] SELF 7 [id number] NO FAULT [id number] Dian [id number] PROGRESSIVE E [id number] Child [id number] PROGRESSIVE E [id number] Child [id number] NO FAULT [id number] Dian [id number] [facility] PL [id number] SP [id number] [facility] PL UNAVAILABLE SP UNAVAILABLE MEDICAID W [id number] S [id number] PCP [facility] COMM[facility]ITY PL O [id number] S [id number] UNAVAILABLE UNAVAILA BLE O UNAVAILABLE UNAVAILA BLE W [id number] S [id number] BONG [id number] SP [id number] 400 O [id number] S [id number] [place] [id number] 99 [id number] STPP Wrap [id number] Bong [id number] 99 [id number] [employer] Commercial [id number] .0 Self [id number] [place] Commercial [id number] Self [id number] [place] [employer] [id number] Self [id number] [place] [employer] [id number] Self [id number] [place] [employer] [id number] Self [id number] [employer]ong [employer] [id number] .[id number] .0 Self [id number] [employer]ong [employer] [id number] .[id number] .0 Self [id number] [place] [id number] ..[id number] .0 Self [id number] Montara [employer] [id number] .[id number] .0 Self [id number] [employer]ong [employer] [id number] .[id number] .0 Self [id number] [employer]ong [employer] [id number] .[id number] .0 Self [id number] [employer]ong [employer] [id number] .[id number] .0 Self [id number] Montara [employer] [id number] .1.752402.3.227.99.8778.42640 .0 Self [id number] Montara [employer] [id number] .[id number] .0 Self [id number] [employer]ong [employer] [id number] 2.840.1.179808.3.227.99.8778.33547 .0 Self [id number] [employer]ong Commercial [id number] 2.840.1.819496.3.227.99.8778.69313 .0 Self [id number] [place] Commercial [id number] 2.0.1.026369.3.227.99.8778.93282 .0 Self [id number] [employer] [id number] 2.0.1.183833.3.227.99.8778.19398 .0 Self [id number] Bong Commercial [id number] .[id number]7 .0 Self [id number] Bong Commercial [id number] .[id number] .0 Self [id number] [employer] Commercial [id number] .[id number] .0 Self [id number] MEDICAID PI PI BONG MEDICAID PI PI [place] Commercial [id number] .[id number] .0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 [facility] Cocaine Metabolites -28.00NegativeNegative [facility] ([facility]) EDDP -97.00NegativeNegative [facility] Ethyl Glucuronide 151.00NegativeNegative [facility] ([facility]) Ethyl Alcohol 0.00NegativeNegative [facility] ([facility]) Fentanyl 1.100PRESUMPTIVE POSITIVEPRESUMPTIVE POSITIVE [facility] ([facility]) Heroin (6-AM) -0.10NegativeNegative [facility] ([facility]) Opiates -28.00NegativeNegative [facility] ([facility]) Methadone -10.00NegativeNegative [facility] ([facility]) Cannabinoids -5.60NegativeNegative [facility] ([facility]) Synthetic Opiates -24.00NegativeNegative [facility] ([facility]) Phencyclidine 1.30NegativeNegative [facility] ([facility]) Tramadol 42.00NegativeNegative [facility] ([facility]) Tricyclics 547.00PRESUMPTIVE POSITIVEPRESUMPTIVE POSITIVE [facility] ([facility]) Ecstasy (MDMA) 50.00NegativeNegative [facility] ([facility]) Buprenorphine 216.190Positive - ConsistentPOSITIVE [facility] ([facility]) Norbuprenorphine 476.890Positive - ConsistentPOSITIVE [facility] ([facility]) Norfentanyl 0.610NegativeNegative [facility] ([facility]) Naloxone 629.130Positive - InconsistentPOSITIVE [facility] ([facility]) Fentanyl 0.040NegativeNegative [facility] ([facility]) Norcarfentanil 0.190NegativeNegative [facility] ([facility]) Carfentanil 0.040NegativeNegative [facility] ([facility]) Doxepin 0.000NegativeNegative [facility] ([facility]) Sufentanil 0.080NegativeNegative [facility] ([facility]) Desmethyldoxepin 0.000NegativeNegative [facility] ([facility]) Nortriptyline 6.610NegativeNegative [facility] ([facility]) Imipramine 3.450NegativeNegative [facility] ([facility]) Clomipramine 12.060NegativeNegative [facility] ([facility]) Amitriptyline 4.260NegativeNegative [facility] ([facility]) Desipramine 7.260NegativeNegative [facility] ([facility]) Clozapine 0.020NegativeNegative [facility] ([facility]) Chlorpromazine 0.160NegativeNegative [facility] ([facility]) Aripiprazole 0.000NegativeNegative [facility] ([facility]) Fluphenazine 0.090NegativeNegative [facility] ([facility]) Haloperidol 0.040NegativeNegative [facility] ([facility]) Olanzapine 0.140NegativeNegative [facility] ([facility]) Lurasidone 0.280NegativeNegative [facility] ([facility]) Promethazine 0.020NegativeNegative [facility] ([facility]) Quetiapine 50Positive - ConsistentPOSITIVE> [facility] ([facility]) Trifluoperazine 0.230NegativeNegative [facility] ([facility]) Risperidone 0.000NegativeNegative [facility] ([facility]) Bupropion 50Positive - ConsistentPOSITIVE> [facility] ([facility]) Ziprasidone 0.000NegativeNegative [facility] ([facility]) Trazodone 50Positive - ConsistentPOSITIVE> [facility] ([facility]) Hydroxybupropion 50Positive - ConsistentPOSITIVE> [facility] ([facility]) mCPP 50Positive - ConsistentPOSITIVE> [facility] ([facility]) ID Date Data Source [id number] 07/14/2020 11:21:15 AM EST [facility] NOTE: Presumptive [...] Result VALIDVALIDVALID [facility] ID Date Data Source [id number] 07/14/2020 11:21:17 AM EST [facility] NOTE: Presumptive [...] 500.00 ng/mL [facility] ID Date Data Source [id number] 07/14/2020 11:21:18 AM EST [facility] NOTE: Presumptive [...] non-numeric results) [facility] ID Date Data Source [id number] 07/14/2020 11:21:20 AM EST [facility] NOTE: Presumptive Positive indicates a n onnegative test result by immunoassay screen. It is a preliminary result. [facility] recommends that a Presumptive Positive result be confirmed by an additional, more specific test such as mass spectrometry Name Value Range Interpretation Code Description Data Judith rce(s) Supporting Document(s) Norfentanyl 0.610NegativeNegative ng/mL 1.00 ng/mL [facility] Fentanyl 0.040NegativeNegative ng/mL 1.00 ng/mL [facility] Carfentanil 0.040NegativeNegative ng/mL 1.00 ng/mL [facility] Norcarfentanil 0.190NegativeNegative ng/mL 1.00 ng/mL [facility] Sufentanil 0.080NegativeNegative ng/mL 1.00 ng/mL [facility] ID Date Data Source [id number] 07/14/2020 11:21:22 AM EST [facility] NOTE: Presumptive [...] 50.00 ng/mL [facility] ID Date Data Source [id number] 07/14/2020 11:21:19 AM EST [facility] NOTE: Presumptive [...] 10.00 ng/mL [facility] ID Date Data Source [id number] 07/14/2020 11:21:19 AM EST [facility] NOTE: Presumptive [...] 1.00 ng/mL [facility] ID Date Data Source [id number] 07/14/2020 11:21:20 AM EST [facility] NOTE: Presumptive Positive indicates a n onnegative test result by immunoassay screen. It is a preliminary result. [facility] recommends that a Presumptive Positive result be confirmed by an additional, more specific test such as mass spectrometry Name Value Range Interpretation Code Description Data [facility] rce(s) Supporting Document(s) Trazodone 50Positive - ConsistentPOSITIVE> ng/mL 1.00 ng/mL [facility] mCPP 50Positive - ConsistentPOSITIVE> ng/mL 1.00 ng/mL [facility] ID Date Data Source [id number] 07/05/2020 12:28:28 PM EST [facility] NT INFORMATIONPatient MRN Name Date of Age Gend*PT [id number] Denisha Harding 1990 30 years F OPPT Location Admission Date/Time Visit ID Attending Provider --- --- --- Mookie Schroeder MD([id number]) EPI ID CSN Admitting Provider [id number] ---Denisha Harding was seen by Marky Medley MD.The problems addressed include:1. Cough2. Moderate persistent asthma without complication3. Polysubstance abuse4. Nicotine dependence with nicotine-induced disorder, unspecified nicotineproduct type5. Irritable bowel syndrome with constipation6. GERD without esophagitis7. Dysfunctional uterine bleeding s/p ablation8. Paroxysmal atrial fibrillation9. Restless leg ixfobipy97. Von Willebrand umzgjed66. Immunization refusedI have discussed the case with the care-rendering provider Marky Medley MD. Ireviewed and agree with the findings, assessment and plan as documented.Niesha Guevara DO Name Value Range Interpretation Code Description Data [facility] rce(s) Supporting Document(s) ID Date Data Source [id number] 06/25/2020 11:48:27 PM EST [facility] NT INFORMATIONPatient MRN Name Date of Age Gend*PT [id number] Denisha Harding 1990 30 years F OPPT Location Admission Date/Time Visit ID Attending Provider --- --- --- Mookie Schroeder MD([id number]) EPI ID CSN Admitting Provider [id number] ---Subjective: Denisha Harding is a female of 30 years who presents today for various chronic andacute [facility], back at homePalpitation and dizziness, wakes her up, intermittent, q3d, started mon 06/13Psych wants sleep study 2/2 worsening nightmaresStill seeing counselor and [facility] started again despite s/p ablation 2017Desmopressin for [...] heroinFo llows with Carri Hale (prescribing) at [facility] [phone])Assessment & Plan:Clean x4mo, continues to follow with [facility] for counseling/prescribingOrders:- Multiple Vitamins-Iron (MULTIVITAMIN WITH [...] have recurred despite prior ablation, refer to [facility] for possible repeatOrders:- Ambulatory referral to OB/GYNParoxysmal [...] rce(s) Supporting Document(s) ID Date Data Source [id number] 06/23/2020 11:50:47 AM EST [facility] Name Value Range Interpretation Code Description Data Judith rce(s) Supporting Document(s) RESPIRATORY SOURCE [facility] Nasopharyngeal INFLUENZA A BY PCR [facility] Not Detected INFLUENZA B BY PCR [facility] Detected RSV BY PCR [facility] Not Detected INTERPRETIVE INFORMATION: R espiratory Virus Mini Panel by PCR A negative result does not rule out the presence of PCR inhibitors in the patient specimen or assay specific nucleic acid in concentrations below the level of detection by the assay. Performed by [facility], [address] [place] [id number] [email or web address].[employer] Sylvia Mcmillan MD, Lab. Director ID Date Data Source [id number] 06/23/2020 08:24:03 AM EST [facility] Name Value Range Interpretation Code Description Data Judith rce(s) Supporting Document(s) SARS COV2 SOURCE [facility] SARS COV 2 BY PCR [facility] Not Detected INTERPRETIVE INFORMATION: S ARS-CoV-2 (COVID-19) [...] In compliance with this authorization, please visit [email or web address] for more information and to access the [...] collection, transport, storage, and handling. Performed by [facility], [address] [place] [id number] [email or web address].[employer] Sylvia Mcmillan MD, Lab. Director ID Date Data Source [id number] 05/30/2020 05:00:00 AM EST [facility] ([facility]) Name Value Range Interpretation Code Description Data Judith rce(s) Supporting Document(s) pH 6.9NORMALNORMAL [facility] ([facility]) Creatinine 162.1NORMALNORMAL NE [facility]SM[facility] ([facility]) Amphetamines 352.00NegativeNegative [facility] ([facility]) Oxidants -16.00NegativeNegative [facility] ([facility]) Validity Result VALIDVALIDVALID [facility] ([facility]) Benzodiazepines 44.00NegativeNegative [facility] ([facility]) Buprenorphine 122.40PRESUMPTIVE POSITIVEPRESUMPTIVE POSITIVE [facility] ([facility]) Barbiturates 9.00NegativeNegative [facility] ([facility]) Cotinine 1193.00PRESUMPTIVE POSITIVEPRESUMPTIVE POSITIVE [facility] ([facility]) Cocaine Metabolites -9.00NegativeNegative [facility] ([facility]) EDDP -58.00NegativeNegative [facility] ([facility]) Ethyl Alcohol 16.00NegativeNegative [facility] ([facility]) Ethyl Glucuronide 408.00NegativeNegative [facility] ([facility]) Heroin (6-AM) 3.00NegativeNegative [facility] ([facility]) Methadone -13.00NegativeNegative [facility] ([facility]) Fentanyl 1.700PRESUMPTIVE POSITIVEPRESUMPTIVE POSITIVE [facility] ([facility]) Synthetic Opiates -23.00NegativeNegative [facility] ([facility]) Opiates -16.00NegativeNegative [facility] ([facility]) Phencyclidine 22.10NegativeNegative [facility] ([facility]) Tramadol 34.00NegativeNegative [facility] ([facility]) Cannabinoids -14.10NegativeNegative [facility] ([facility]) Tricyclics 688.00PRESUMPTIVE POSITIVEPRESUMPTIVE POSITIVE [facility] ([facility]) Ecstasy (MDMA) 82.00NegativeNegative [facility] ([facility]) Norbuprenorphine 494.990Positive - ConsistentPOSITIVE [facility] ([facility]) Buprenorphine 250Positive - ConsistentPOSITIVE> [facility] Naloxone 647.270Positive - InconsistentPOSITIVE [facility] ([facility]) Carfentanil 0.000NegativeNegative [facility] ([facility]) Norfentanyl 0.280NegativeNegative [facility] ([facility]) Fentanyl 0.060NegativeNegative [facility] ([facility]) Norcarfentanil 0.120NegativeNegative [facility] ([facility]) Sufentanil 0.080NegativeNegative [facility] ([facility]) Desmethyldoxepin 0.000NegativeNegative [facility] ([facility]) Imipramine 5.420NegativeNegative [facility] ([facility]) Doxepin 4.360NegativeNegative [facility] ([facility]) Amitriptyline 0.000NegativeNegative [facility] ([facility]) Nortriptyline 0.360NegativeNegative [facility] ([facility]) Aripiprazole 0.000NegativeNegative [facility] ([facility]) Clomipramine 10.470NegativeNegative [facility] ([facility]) Desipramine 0.000NegativeNegative [facility] ([facility]) Chlorpromazine 0.000NegativeNegative [facility] ([facility]) Clozapine 0.000NegativeNegative [facility] ([facility]) Lurasidone 0.230NegativeNegative [facility] ([facility]) Haloperidol 0.000NegativeNegative [facility] ([facility]) Fluphenazine 0.070NegativeNegative [facility] ([facility]) Quetiapine 50Positive - ConsistentPOSITIVE> [facility] ([facility]) Olanzapine 0.120NegativeNegative [facility] ([facility]) Promethazine 0.000NegativeNegative [facility] ([facility]) Risperidone 0.000NegativeNegative [facility] ([facility]) Trifluoperazine 0.250NegativeNegative [facility] ([facility]) Ziprasidone 0.000NegativeNegative [facility] ([facility]) Bupropion 50Positive - ConsistentPOSITIVE> [facility] ([facility]) Hydroxybupropion 50Positive - ConsistentPOSITIVE> [facility] ([facility]) mCPP 50Positive - ConsistentPOSITIVE> [facility] ([facility]) Trazodone 50Positive - ConsistentPOSITIVE> [facility] ([facility]) ID Date Data Source [id number] 06/04/2020 02:01:45 PM EST [facility] NOTE: Presumptive [...] Result VALIDVALIDVALID [facility] ID Date Data Source [id number] 06/04/2020 02:01:45 PM EST [facility] NOTE: Presumptive [...] 500.00 ng/mL [facility] ID Date Data Source [id number] 06/04/2020 02:01:45 PM EST [facility] NOTE: Presumptive [...] non-numeric results) [facility] ID Date Data Source [id number] 06/04/2020 02:01:46 PM EST [facility] NOTE: Presumptive [...] 1.00 ng/mL [facility] ID Date Data Source [id number] 06/04/2020 02:01:46 PM EST [facility] NOTE: Presumptive [...] 50.00 ng/mL [facility] ID Date Data Source [id number] 06/04/2020 02:01:45 PM EST [facility] NOTE: Presumptive [...] 10.00 ng/mL [facility] ID Date Data Source [id number] 06/04/2020 02:01:46 PM EST [facility] NOTE: Presumptive [...] 1.00 ng/mL [facility] ID Date Data Source [id number] 06/04/2020 02:01:46 PM EST [facility] NOTE: Presumptive [...] - ConsistentPOSITIVE> ng/mL 1.00 ng/mL [facility] ID Data Source [id number] 05/17/2020 05:00:00 AM EST NETSMART ([facility]) Name Value Range Interpretation Code Description Data Judith rce(s) Supporting Document(s) Creatinine 173.1NORMALNORMAL NE TSMART ([facility]) pH 6.0NORMALNORMAL NETSM ART ([facility]) Validity Result VALIDVALIDVALID NETSMART ([facility]) Oxidants -17.00NegativeNegative NETSMART ([facility]) Amphetamines 449.00NegativeNegative NETSMART ([facility]) Barbiturates 41.00NegativeNegative NETSMART ([facility]) Benzodiazepines 14.00NegativeNegative NETSMART ([facility]) Cocaine Metabolites -16.00NegativeNegative NETSMART ([facility]) Buprenorphine 121.90PRESUMPTIVE POSITIVEPRESUMPTIVE POSITIVE NETSMART ([facility]) EDDP -145.00NegativeNegative NETSMART ([facility]) Ethyl Glucuronide 42.00NegativeNegative NETSMART ([facility]) Cotinine 988.00PRESUMPTIVE POSITIVEPRESUMPTIVE POSITIVE NETSMART ([facility]) Fentanyl 0.500NegativeNegative NETSMART ([facility]) Ethyl Alcohol -3.00NegativeNegative NETSMART ([facility]) Methadone -15.00NegativeNegative NETSMART ([facility]) Opiates -36.00NegativeNegative NETSMART ([facility]) Heroin (6-AM) 2.80NegativeNegative NETSMART ([facility]) Synthetic Opiates -17.00NegativeNegative NETSMART ([facility]) Phencyclidine 23.00NegativeNegative NETSMART ([facility]) Tramadol 37.00NegativeNegative NETSMART ([facility]) Tricyclics 594.00PRESUMPTIVE POSITIVEPRESUMPTIVE POSITIVE NETSMART ([facility]) Cannabinoids -16.40NegativeNegative NETSMART ([facility]) Ecstasy (MDMA) 79.00NegativeNegative NETSMART ([facility]) Buprenorphine 250Positive - ConsistentPOSITIVE> NETSMART ([facility]) Desmethyldoxepin 0.000NegativeNegative NETSMART ([facility]) Norbuprenorphine 500Positive - ConsistentPOSITIVE> NETSMART ([facility]) Naloxone 553.950Positive - ConsistentPOSITIVE NETSMART ([facility]) Imipramine 1.960NegativeNegative NETSMART ([facility]) Doxepin 4.240NegativeNegative NETSMART ([facility]) Clomipramine 37.370NegativeNegative NETSMART ([facility]) Amitriptyline 2.100NegativeNegative NETSMART ([facility]) Nortriptyline 3.020NegativeNegative NETSMART ([facility]) Desipramine 0.000NegativeNegative NETSMART ([facility]) ID Date Data Source [id number] 05/19/2020 05:30:36 PM EST [facility] NOTE: Presumptive Positive indicates a n onnegative test result by immunoassay screen. It is a preliminary result. [facility] recommends that a Presumptive Positive result be confirmed by an additional, more specific test such as mass spectrometry Name Value Range Interpretation Code Description Data [facility] rce(s) Supporting Document(s) Creatinine 173.1NORMALNORMAL mg/dL 20.0-300.0 mg/dL [facility] pH 6.0NORMALNORMAL 3.5-9.2 [facility] Oxidants -17.00NegativeNegative mcg/mL 200.00 mcg/mL [facility] Validity Result VALIDVALIDVALID [facility] ID Date Data Source [id number] 05/19/2020 05:30:36 PM EST [facility] NOTE: Presumptive Positive indicates a n onnegative test result by immunoassay screen. It is a preliminary result. [facility] recommends that a Presumptive Positive result be confirmed by an additional, more specific test such as mass spectrometry Name Value Range Interpretation Code Description [facility](s) Amphetamines 449.00NegativeNegative ng/mL 500.00 ng/mL [...] 500.00 ng/mL [facility] ID Date Data Source [id number] 05/19/2020 05:30:36 PM EST [facility] NOTE: Presumptive [...] 25.00 ng/mL [facility] ID Date Data Source [id number] 05/19/2020 05:30:36 PM EST [facility] NOTE: Presumptive [...] 50.00 ng/mL [facility] ID Date Data Source [id number] 05/11/2020 05:30:08 PM EST [facility] NT INFORMATIONPatient MRN Name Date of Age Gend*PT [id number] Denisha Harding 1990 30 years F OPPT Location Admission Date/Time Visit ID Attending Provider --- --- --- Ga Carpio MD([id number]) EPI ID CSN Admitting Provider [id number] ---Denisha Harding was seen by Mariama Lorenz MD.The problems addressed include:1. Lymphadenitis2. Medication refillI have discussed the case with the care-rendering provider Mariama Lorenz MD. Ireviewed and agree with the findings, assessment and plan as documented.Ga Carpio MD Name Value Range Interpretation Code Description Data Judith rce(s) Supporting Document(s) ID Date Data Source [id number] 05/11/2020 10:18:38 AM EST [facility] NT INFORMATIONPatient MRN Name Date of Age Gend*PT [id number] Denisha Harding 1990 30 years F OPPT Location Admission Date/Time Visit ID Attending Provider --- --- --- Ga Carpio MD([id number]) EPI ID CSN Admitting Provider [id number] ---Assessment/Plan:Denisha Hadring is a 30 years female who presents [...] rce(s) Supporting Document(s) ID Date Data Source [id number] 05/07/2020 01:00:46 [facility]FORMATIONPatient MRN Name Date of Age Gend*PT [id number] Denisha Harding 1990 30 years F OPPT Location Admission Date/Time Visit ID Attending Provider --- --- --- Ron Tejada MD([id number]) EPI ID CSN Admitting Provider [id number] ---Denisha Harding was seen by Marky Medley MD.The problems addressed include:1. Polysubstance abuse2. Irritable bowel syndrome with constipation3. Moderate persistent asthma without complication4. GERD without esophagitis5. SedatedI have discussed the case with the care-rendering provider Marky Medley MD. Ireviewed and agree with the findings, assessment and plan as documented.Ron Tejada MD Name Value Range Interpretation Code Description Data [facility](s) Supporting Document(s) ID Date Data Source [id number] 05/06/2020 05:49:13 PM EST [facility] NOTE: Presumptive Positive indicates a n onnegative test result by immunoassay screen. It is a preliminary result. [facility] recommends that a Presumptive Positive result be confirmed by an additional, more specific test such as mass spectrometry Name Value Range Interpretation Code Description Data [facility](s) Supporting Document(s) Creatinine 143.1NORMALNORMAL mg/dL 20.0-300.0 mg/dL [facility] pH 6.9NORMALNORMAL 3.5-9.2 [facility] Oxidants -13.00NegativeNegative mcg/mL 200.00 mcg/mL [facility] Validity Result VALIDVALIDVALID [facility] ID Date Data Source [id number] 05/06/2020 05:49:14 PM EST [facility] NOTE: Presumptive Positive indicates a n onnegative test result by immunoassay screen. It is a preliminary result. [facility] recommends that a Presumptive Positive result be confirmed by an additional, more specific test such as mass spectrometry Name Value Range Interpretation Code Description Data [facility](s) Supporting Document(s) Amphetamines 350.00NegativeNegative ng/mL [...] 500.00 ng/mL [facility] ID Date Data Source [id number] 05/06/2020 05:49:14 PM EST [facility] NOTE: Presumptive [...] 25.00 ng/mL [facility] ID Date Data Source [id number] 05/06/2020 05:49:14 PM EST [facility] NOTE: Presumptive Positive indicates a n onnegative test result by immunoassay screen. It is a preliminary result. [facility] recommends that a Presumptive Positive result be confirmed by an additional, more specific test such as mass spectrometry Name Value Range Interpretation Code Description Data [facility] rce(s) Supporting Document(s) Norfentanyl 0.240NegativeNegative ng/mL 1.00 ng/mL [facility] Fentanyl 0.410NegativeNegative ng/mL 1.00 ng/mL [facility] Carfentanil 0.020NegativeNegative ng/mL 1.00 ng/mL [facility] Norcarfentanil 0.280NegativeNegative ng/mL 1.00 ng/mL [facility] Sufentanil 0.100NegativeNegative ng/mL 1.00 ng/mL [facility] ID Date Data Source [id number] 05/06/2020 05:49:14 PM EST [facility] NOTE: Presumptive Positive indicates a n onnegative test result by immunoassay screen. It is a preliminary result. [facility] recommends that a Presumptive Positive result be confirmed by an additional, more specific test such as mass spectrometry Name Value Range Interpretation Code Description Data [facility] rce(s) Supporting Document(s) Desmethyldoxepin 0.000NegativeNegative ng/mL 50.00 ng/mL [facility] Doxepin 3.630NegativeNegative ng/mL 50.00 ng/mL [facility] Imipramine 6.970NegativeNegative ng/mL 50.00 ng/mL [facility] Nortriptyline 3.650NegativeNegative ng/mL 50.00 ng/mL [facility] Amitriptyline 6.180NegativeNegative ng/mL 50.00 ng/mL [facility] Clomipramine 0.000NegativeNegative ng/mL 50.00 ng/mL [facility] Desipramine 3.960NegativeNegative ng/mL 50.00 ng/mL [facility] ID Date Data Source [id number] 05/01/2020 09:08:47 PM EST [facility] NT INFORMATIONPatient MRN Name Date of Age Gend*PT [id number] Denisha Harding 1990 30 years F OPPT Location Admission Date/Time Visit ID Attending Provider --- --- --- Ron Tejada MD([id number]) EPI ID CSN Admitting Provider [id number] ---Subjective: Denisha Harding is a female of 30 years who presents today for follow-up mood,chronic conditionsHPIJust got out of rehab in [place] 04/08, doing well New resident smokes spike, triggeringQuit 02/11/2020SomnolentRecovery house on S sideThumb surgery 03/25 Nail biting infection, surgery, healingHelio counseling weeklyBilly through [facility] is prescribing suboxone 12mg divided 4mg TID [...] leonard, heroinFollows with Carri Hale (prescribing) at [facility] ([phone])Assessment & Plan:Got out of inpatient rehab in [place] 04/08/2020, doing wellHas been clean since 02/11/2020Currently living in a recovery house on this outside, but is having issuesbecause a new resident is using in the houseOn numerous psychiatric and substance related medications, prescribed throughHelioOur office will only be managing patient's somatic [...] Code Description Data Judith e(s) Supporting Document(s) ID Date Data Source [id number] 04/23/2020 10:39:31 AM EST [facility] NOTE: Presumptive Positive indicates a n onnegative test result by immunoassay screen. It is a preliminary result. [facility] recommends that a Presumptive Positive result be confirmed by an additional, more specific test such as mass spectrometry Name Value Range Interpretation Code Description Data [facility](s) Supporting Document(s) Creatinine 118.7NORMALNORMAL mg/dL 20.0-300.0 mg/dL [facility] pH 5.3NORMALNORMAL 3.5-9.2 [facility] Oxidants -18.00NegativeNegative mcg/mL 200.00 mcg/mL [facility] Validity Result VALIDVALIDVALID [facility] ID Date Data Source [id number] 04/23/2020 10:39:32 AM EST [facility] NOTE: Presumptive Positive indicates a n onnegative test result by immunoassay screen. It is a preliminary result. [facility] recommends that a Presumptive Positive result be confirmed by an additional, more specific test such as mass spectrometry Name Value Range Interpretation Code Description Data [facility](s) Supporting Document(s) Amphetamines 337.00NegativeNegative ng/mL [...] 500.00 ng/mL [facility] ID Date Data Source [id number] 04/23/2020 10:39:34 AM EST [facility] NOTE: Presumptive Positive indicates a n onnegative test result by immunoassay screen. It is a preliminary result. [facility] recommends that a Presumptive Positive result be confirmed by an additional, more specific test such as mass spectrometry Name Value Range Interpretation Code Description Data Judith rce(s) Supporting Document(s) Buprenorphine 127.840Positive - ConsistentPOSITIVE ng/mL 5 .00 ng/mL [facility] Norbuprenorphine 367.960Positive - ConsistentPOSITI VE ng/mL 10.00 ng/mL [facility] Naloxone 230.550Positive - ConsistentPOSITIVE ng/mL 25.00 ng/mL [facility] ID Date Data Source [id number] 04/23/2020 10:39:36 AM EST [facility] NOTE: Presumptive Positive indicates a n onnegative test result by immunoassay screen. It is a preliminary result. [facility] recommends that a Presumptive Positive result be confirmed by an additional, more specific test such as mass spectrometry Name Value Range Interpretation Code Description Data [facility](s) Supporting Document(s) Norfentanyl 0.280NegativeNegative ng/mL 1.00 ng/mL [facility] Fentanyl 0.100NegativeNegative ng/mL 1.00 ng/mL [facility] Carfentanil 0.040NegativeNegative ng/mL 1.00 ng/mL [facility] Norcarfentanil 0.300NegativeNegative ng/mL 1.00 ng/mL [facility] Sufentanil 0.200NegativeNegative ng/mL 1.00 ng/mL [facility] ID Date Data Source [id number] 04/23/2020 10:39:35 AM EST [facility] NOTE: Presumptive Positive indicates a n onnegative test result by immunoassay screen. It is a preliminary result. [facility] recommends that a Presumptive Positive result be confirmed by an additional, more specific test such as mass spectrometry Name Value Range Interpretation Code Description Data [facility](s) Supporting Document(s) Desmethyldoxepin 0.000NegativeNegative ng/mL 50.00 ng/mL [facility] Doxepin 7.950NegativeNegative ng/mL 50.00 ng/mL [facility] Imipramine 10.580NegativeNegative ng/mL 50.00 ng/mL [facility] Nortriptyline 6.390NegativeNegative ng/mL 50.00 ng/mL [facility] Amitriptyline 13.340NegativeNegative ng/mL 50.00 ng/mL [facility] Clomipramine 15.960NegativeNegative ng/mL 50.00 ng/mL [facility] Desipramine 6.090NegativeNegative ng/mL 50.00 ng/mL [facility] ID Date Data Source [id number] 04/23/2020 10:39:38 AM EST [facility] NOTE: Presumptive [...] results) Tru[facility] x ID Date Data Source [id number] 04/12/2020 02:43:00 PM EST NETSMART ([facility]) Name Value Range Interpretation Code Description Data Judith rce(s) Supporting Document(s) Creatinine 30.8NORMALNORMAL NET SMART ([facility]) Oxidants -14.00NegativeNegative NETSMART ([facility]) pH 8.2NORMALNORMAL NETSM ART ([facility]) Barbiturates 0.00NegativeNegative NETSMART ([facility]) Validity Result VALIDVALIDVALID NETSMART ([facility]) Amphetamines 62.00NegativeNegative NETSMART ([facility]) Buprenorphine 43.40PRESUMPTIVE POSITIVEPRESUMPTIVE POSITIVE NETSMART ([facility]) Benzodiazepines -3.00NegativeNegative NETSMART ([facility]) Cotinine 763.00PRESUMPTIVE POSITIVEPRESUMPTIVE POSITIVE NETSMART ([facility]) EDDP -34.00NegativeNegative NETSMART ([facility]) Cocaine Metabolites 7.00NegativeNegative NETSMART ([facility]) Ethyl Glucuronide -12.00NegativeNegative NETSMART ([facility]) Ethyl Alcohol 1.00NegativeNegative NETSMART ([facility]) Fentanyl 0.300NegativeNegative NETSMART ([facility]) Methadone -11.00NegativeNegative NETSMART ([facility]) Heroin (6-AM) 1.10NegativeNegative NETSMART ([facility]) Synthetic Opiates -16.00NegativeNegative NETSMART ([facility]) Phencyclidine 11.70NegativeNegative NETSMART ([facility]) Opiates 0.00NegativeNegative NETSMART ([facility]) Tramadol 14.00NegativeNegative NETSMART ([facility]) Cannabinoids -5.40NegativeNegative NETSMART ([facility]) Tricyclics 456.00NegativeNegative NETSMART ([facility]) Buprenorphine 28.240Positive - ConsistentPOSITIVE NETSMART ([facility]) Ecstasy (MDMA) 6.00NegativeNegative NETSMART ([facility]) Norbuprenorphine 75.050Positive - ConsistentPOSITIVE NETSMART ([facility]) Naloxone 33.950Positive - ConsistentPOSITIVE NETSMART ([facility]) ID Date Data Source [id number] 04/16/2020 02:42:04 PM EST [facility] NOTE: Presumptive Positive indicates a n onnegative test result by immunoassay screen. It is a preliminary result. [facility] recommends that a Presumptive Positive result be confirmed by an additional, more specific test such as mass spectrometry Name Value Range Interpretation Code Description Data [facility](s) Supporting Document(s) Creatinine 30.8NORMALNORMAL mg/dL 20.0-300.0 mg/dL [facility] pH 8.2NORMALNORMAL 3.5-9.2 [facility] Oxidants -14.00NegativeNegative mcg/mL 200.00 mcg/mL [facility] Validity Result VALIDVALIDVALID [facility] ID Date Data Source [id number] 04/16/2020 02:42:05 PM EST [facility] NOTE: Presumptive Positive indicates a n onnegative test result by immunoassay screen. It is a preliminary result. [facility] recommends that a Presumptive Positive result be confirmed by an additional, more specific test such as mass spectrometry Name Value Range Interpretation Code Description Data [facility](s) Supporting Document(s) Amphetamines 62.00NegativeNegative ng/mL [...] 500.00 ng/mL [facility] ID Date Data Source [id number] 04/16/2020 02:42:07 PM EST [facility] NOTE: Presumptive [...] n g/mL [facility] ID Date Data Source [id number] 04/06/2020 05:34:31 PM EDT [facility] NOTE: Presumptive Positive indicates a n onnegative test result by immunoassay screen. It is a preliminary result. [facility] recommends that a Presumptive Positive result be confirmed by an additional, more specific test such as mass spectrometry Name Value Range Interpretation Code Description Data [facility] rce(s) Supporting Document(s) Creatinine 82.2NORMALNORMAL mg/dL 20.0-300.0 mg/dL [facility] pH 8.2NORMALNORMAL 3.5-9.2 [facility] Oxidants -14.00NegativeNegative mcg/mL 200.00 mcg/mL [facility] Validity Result VALIDVALIDVALID [facility] ID Date Data Source [id number] 04/06/2020 05:34:32 PM EDT [facility] NOTE: Presumptive Positive indicates a n onnegative test result by immunoassay screen. It is a preliminary result. [facility] recommends that a Presumptive Positive result be confirmed by an additional, more specific test such as mass spectrometry Name Value Range Interpretation Code Description [facility] Supporting Document(s) Amphetamines 56.00NegativeNegative ng/mL 500.00 ng/mL [...] 500.00 ng/mL [facility] ID Date Data Source [id number] 04/06/2020 05:34:34 PM EDT [facility] NOTE: Presumptive [...] non-numeric results) [facility] ID Date Data Source [id number] 04/06/2020 05:34:35 PM EDT [facility] NOTE: Presumptive [...] 50.00 ng/mL [facility] ID Date Data Source [id number] 02/03/2020 04:00:00 AM EDT NETSMART ([facility]) Name Value Range Interpretation Code Description Data Judith rce(s) Supporting Document(s) Creatinine 204.1NORMALNORMAL NE TSMART ([facility]) pH 6.3NORMALNORMAL NETSM ART ([facility]) Oxidants -17.00NegativeNegative NETSMART ([facility]) Amphetamines 209.00NegativeNegative NETSMART ([facility]) Validity Result VALIDVALIDVALID NETSMART ([facility]) Barbiturates -15.00NegativeNegative NETSMART ([facility]) Buprenorphine 0.80NegativeNegative NETSMART ([facility]) Benzodiazepines -31.00NegativeNegative NETSMART ([facility]) Cocaine Metabolites 175.00NegativeNegative NETSMART ([facility]) Cotinine 1671.00PRESUMPTIVE POSITIVEPRESUMPTIVE POSITIVE NETSMART ([facility]) Ethyl Glucuronide 26.00NegativeNegative NETSMART ([facility]) EDDP -91.00NegativeNegative NETSMART ([facility]) Ethyl Alcohol 7.00NegativeNegative NETSMART ([facility]) [facility]anyl [facility].100[facility]Negative [facility]) Heroin (6-AM) -1.30NegativeNegative NETSMART ([facility]) Opiates -32.00NegativeNegative NETSMART ([facility]) Synthetic Opiates -13.00NegativeNegative NETSMART ([facility]) Methadone -37.00NegativeNegative NETSMART ([facility]) Phencyclidine -4.90NegativeNegative NETSMART ([facility]) Cannabinoids 7.80NegativeNegative NETSMART ([facility]) Tricyclics 16.00NegativeNegative NETSMART ([facility]) Ecstasy (MDMA) -1.00NegativeNegative NETSMART ([facility]) Tramadol -18.00NegativeNegative NETSMART ([facility]) Buprenorphine 0.000Negative - InconsistentNegative NETSMART ([facility]) Naloxone 0.000Negative - InconsistentNegative NETSMART ([facility]) Norbuprenorphine 0.620Negative - InconsistentNegative NETSMART ([facility]) ID Date Data Source [id number] 02/05/2020 12:00:00 AM EDT [facility] NOTE: Presumptive [...] Result VALIDVALIDVALID [facility] ID Date Data Source [id number] 02/05/2020 12:00:00 AM EDT [facility] NOTE: Presumptive Positive indicates a n onnegative test result by immunoassay screen. It is a preliminary result. [facility] recommends that a Presumptive Positive result be confirmed by an additional, more specific test such as mass spectrometry Name Value Range Interpretation Code Description Data Judith e(s) Supporting Document(s) Amphetamines 209.00NegativeNegative ng/mL 500.00 ng/mL [...] 500.00 ng/mL [facility] ID Date Data Source [id number] 02/05/2020 12:00:00 AM EDT [facility] NOTE: Presumptive [...] non-numeric results) [facility] ID Date Data Source [id number] 01/26/2020 05:30:20 PM EDT [facility] NT INFORMATIONPatient MRN Name Date of Age Gend*PT [id number] Denisha Harding 1990 30 years F CPEPPT Location Admission Date/Time Visit ID Attending [id number] 07/31/19 1842 --- --- EPI ID CSN Admitting Provider [id number] ---CPEP PSYCHIATRIC ASSESSMENTPatient Name: Denisha HardingPatient at CPE: 07/31/19 1614Psychiatrist First Contact: Yes (07/31/19 1807 : Otto Fisher MD)Chief ComplaintChief ComplaintPatient presents with Psychiatric Evaluation Patient states she is being bullied at [facility], states that otherpatients are calling her fat and she is bulimic. States she went to thepervisor and they stated that her only option is to be discharged with anon-completition. Patient states she does not [facility], but can't stay at [facility] anymore because of thebullying.Current StressorsCurrent Stressors: Pyschiatric SymptomsHistory of Present IllnessPatient InfoHistory provided by: patientHistory limited by: condition of the patientLanguage blister packing machine tender used?: NoHPI: Mental Health ProblemPresenting Symptoms: anxiety, [...] Records Requested? Comments Cpep 06/24/19, today 06/26/19 [facility] Current 07/30/2019 addiction/dual diagnosisPast Suicide / [...] use: Yes Types: Marijuana, IV Comment: santiago valle, Maureenocial HistorySubstance and Sexual ActivitySexual Activity Not on fileRelationships and Living SituationRelationship StatusRelationship Status: Single, Never MarriedSexual PreferenceSexual Preference: HeterosexualParental StatusParental Status: No children, Has minor children NOT in custodyResidence/HomelessResides in : HomelessHomeless Location: In ShelterResides Jail: [facility] MissionWas the patient homeless at any time within the past 6 months?: YesEducation / Employment / HistoryAcademicIs the patient attending school or receiving tutoring or instruction?: NoMilitary HistoryMilitary History: NoLegal HistoryLegal HistoryHistory of Legal Problems: YesCurrent [place] or Probation: YesParole/Construction Equipment Mechanic Helper's Name/Contact #: Jazzmine Jeremie [phone] Abuse/NeglectChildhood Abuse/NeglectWas patient abused or neglected as [...] Memory: Deficits NotedInsight: PoorJudgment: PoorOrientation: Appropriately Oriented [id number] Toward Examiner: DefensiveAssociations: Loosening evidentFund of Knowledge: [...] No changes [] No side effectsBilling Code: [id number] signed byShayan Fagan MD01/26/20 3700 Name Value Range Interpretation Code Description Data Judith rce(s) Supporting Document(s) Procedure Social History Code Duration Value Status Description Data Source(s ) Alcohol intake 01/05/2021 12:00:00 AM EDT Current non-d shanna of alcohol (finding) completed Current non-drinker of alcohol (finding) [facility] Alcohol intake 08/31/2020 12:00:00 AM EDT Current non-d shanna of alcohol (finding) completed Current non-drinker of alcohol (finding) [facility] Alcohol intake 08/30/2020 12:00:00 AM EDT No completed [facility] Cigarette pack-years 08/30/2020 12:00:00 AM EDT UNK completed [facility] Cigarettes smoked current (pack per day) - Reported 08/31/19 12:00:00 AM EDT UNK completed [facility] Smoking 08/30/2020 12:00:00 AM EDT Current every day smoker co mpleted Current every day smoker [facility] Alcohol intake 08/23/2020 12:00:00 AM EDT No completed [facility] Cigarette pack-years 08/23/2020 12:00:00 AM EDT UNK completed [facility] Cigarettes smoked current (pack per day) - Reported 08/24/19 12:00:00 AM EDT UNK completed [facility] Smoking 08/23/2020 12:00:00 AM EDT Current every day smoker co mpleted Current every day smoker [facility] Alcohol intake 08/21/2020 12:00:00 AM EST Current drinker of al cohol (finding) completed Current drinker of alcohol (finding) [facility] Tobacco use and exposure 08/21/2020 12:00:00 AM EST Never used co mpleted Never used [facility] Cigarette pack-years 08/21/2020 12:00:00 AM EST UNK completed [facility] Cigarettes smoked current (pack per day) - Reported 08/22/19 12:00:00 AM EST UNK completed [facility] Smoking 08/21/2020 12:00:00 AM EST Current every day smoker co mpleted Current every day smoker [facility] Alcohol intake 06/20/2020 12:00:00 AM EST No completed [facility] Cigarette pack-years 06/20/2020 12:00:00 AM EST UNK completed [facility] Cigarettes smoked current (pack per day) - Reported 06/20/19 12:00:00 AM EST UNK completed [facility] Smoking 06/20/2020 12:00:00 AM EST Current every day smoker co mpleted Current every day smoker [facility] Smoking 06/13/2020 12:00:00 PM EST Smokes tobacco daily (findi ng) completed Current Every Day Smoker [facility] Alcohol intake 05/04/2020 12:00:00 AM EST No completed [facility] Cigarette pack-years 05/04/2020 12:00:00 AM EST UNK completed [facility] Cigarettes smoked current (pack per day) - Reported 05/04/20 12:00:00 AM EST UNK completed [facility] Smoking 05/04/2020 12:00:00 AM EST Current every day smoker co mpleted Current every day smoker [facility] Alcohol intake 05/01/2020 12:00:00 AM EST No completed [facility] Cigarette pack-years 05/01/2020 12:00:00 AM EST UNK completed [facility] Cigarettes smoked current (pack per day) - Reported 05/01/20 12:00:00 AM EST UNK completed [facility] Smoking 05/01/2020 12:00:00 AM EST Current every day smoker co mpleted Current every day smoker [facility] Vital Signs ID Date Data Source UNK Name Value Range Interpretation Code Description Data Source(s) Systolic blood pressure 106 mm[Hg] 106 mm[Hg] [facility] Diastolic blood pressure 68 mm[Hg] 68 mm[Hg] [facility] Heart rate 55 /min 55 /min [facility] Respiratory rate 18 /min 18 /min [facility] Oxygen saturation in Arterial blood by Pulse oximetry 98 % 98 % [facility] Body temperature 36.11 Xenia 36.11 Xenia [facility] Body temperature 36.2 XENIA 36.2 XENIA [facility] ([employer]) Respiratory rate 18.0 /MIN 18.0 /MIN [facility] ([employer]) Heart rate 82.0 /MIN 82.0 /MIN [facility] ([employer] Diastolic blood pressure 83.0 MM[HG] 83.0 MM[HG ] [facility] ([employer]) Systolic blood pressure 125.0 MM[HG] 125.0 MM[H G] [facility] ([employer]) Body temperature 97.1 [DEGF] 97.1 [DEGF] [facility] ([employer]) Oxygen saturation in Arterial blood by Pulse oximetry 98.0 % 98.0 % [facility] ([employer]) Systolic blood pressure 125 mm[Hg] 125 mm[Hg] [facility] Diastolic blood pressure 81 mm[Hg] 81 mm[Hg] [facility] Heart rate 63 /min 63 /min [facility] Respiratory rate 18 /min 18 /min [facility] Oxygen saturation in Arterial blood by Pulse oximetry 95 % 95 % [facility] Body temperature 36.83 Xenia 36.83 Xenia [facility] Body weight 108.863 kg 108.863 kg [facility] Body mass index (BMI) [Ratio] 51.94 kg/m2 51.94 kg/m2 [facility] Diastolic blood pressure 85.0 MM[HG] 85.0 MM[HG ] [facility] Systolic blood pressure 118.0 MM[HG] 118.0 MM[H G] [facility]) Oxygen saturation in Arterial blood by Pulse oximetry 99.0 % 99.0 % [facility] Body weight 106.4 KG 106.4 KG [facility] ([employer] [facility]) Body temperature 37.1 XENIA 37.1 XENIA [facility]) Heart rate 52.0 /MIN 52.0 /MIN [facility] ([facility]) Respiratory rate 16.0 /MIN 16.0 /MIN [facility] ([facility]) Body mass index (BMI) [Ratio] 50.6 50.6 [facility] ([facility]) Body temperature 98.7 [DEGF] 98.7 [DEGF] [facility] ([facility]) Body height 144.8 cm 144.8 cm [facility] ([facility]) Pain severity - 0-10 verbal numeric rating [Score] - Reported 0.0 S mckenzie 0.0 Scale [facility] ([facility]) Systolic blood pressure 131 mm[Hg] 131 mm[Hg] [facility] Diastolic blood pressure 83 mm[Hg] 83 mm[Hg] [facility] Heart rate 72 /min 72 /min [facility] Body temperature 35.17 Xenia 35.17 Xenia [facility] Respiratory rate 18 /min 18 /min [facility] Body height 144.8 cm 144.8 cm [facility] Body weight 105.688 kg 105.688 kg [facility] Body mass index (BMI) [Ratio] 50.42 kg/m2 50.42 kg/m2 [facility] Oxygen saturation in Arterial blood by Pulse oximetry 97 % 97 % [facility] Systolic blood pressure 95 mm[Hg] 95 mm[Hg] [facility] Diastolic blood pressure 60 mm[Hg] 60 mm[Hg] [facility] Heart rate 60 /min 60 /min [facility] Body temperature 36.78 Xenia 36.78 Xenia [facility] Respiratory rate 16 /min 16 /min [facility] Body weight 100.925 kg 100.925 kg [facility] Body mass index (BMI) [Ratio] 48.15 kg/m2 48.15 kg/m2 [facility] Oxygen saturation in Arterial blood by Pulse oximetry 97 % 97 % [facility] Systolic blood pressure 114 mm[Hg] 114 mm[Hg] [facility] Diastolic blood pressure 69 mm[Hg] 69 mm[Hg] [facility] Heart rate 72 /min 72 /min [facility] Body temperature 36.11 Xenia 36.11 Xenia [facility] Respiratory rate 18 /min 18 /min [facility] Body height 144.8 cm 144.8 cm [facility] Body weight 100.699 kg 100.699 kg [facility] Body mass index (BMI) [Ratio] 48.04 kg/m2 48.04 kg/m2 [facility] Oxygen saturation in Arterial blood by Pulse oximetry 96 % 96 % [facility] Systolic blood pressure 120 mm[Hg] 120 mm[Hg] [facility] Diastolic blood pressure 73 mm[Hg] 73 mm[Hg] [facility] Heart rate 76 /min 76 /min [facility] Body temperature 36.28 Xenia 36.28 Xenia [facility] Respiratory rate 20 /min 20 /min [facility] Body height 144.8 cm 144.8 cm [facility] Body weight 102.331 kg 102.331 kg [facility] Body mass index (BMI) [Ratio] 48.82 kg/m2 48.82 kg/m2 [facility] Oxygen saturation in Arterial blood by Pulse oximetry 95 % 95 % [facility] Body mass index (BMI) [Ratio] 48.0 48.0 [facility] ([facility]) Systolic blood pressure 115.0 MM[HG] 115.0 MM[H G] [facility] Diastolic blood pressure 80.0 MM[HG] 80.0 MM[HG ] [facility] Body weight 100.9 KG 100.9 KG [facility] ([facility]) Pain severity - 0-10 verbal numeric rating [Score] - Reported 3.0 S mckenzie 3.0 Scale [facility] ([facility]) Body temperature 36.4 XENIA 36.4 XENIA [facility]) Heart rate 69.0 /MIN 69.0 /MIN [facility]) Respiratory rate 16.0 /MIN 16.0 /MIN [facility] ([facility]) Oxygen saturation in Arterial blood by Pulse oximetry 98.0 % 98.0 % [facility]) Body height 144.8 cm 144.8 cm [facility] ([facility]) Body temperature 97.5 [DEGF] 97.5 [DEGF] [facility] ([facility]) ID Date Data Source [id number] 12/14/2020 06:21:54 PM EDT [facility] Name Value Range Interpretation Code Description Data Source(s) WEIGHT RECORDED 215 lb 215 lb [facility] Body height Measured 57 in 57 in [facility] ID Date Data Source [id number] 08/28/2020 09:54:13 AM EDT [facility] Name Value Range Interpretation Code Description Data Source(s) Body height Measured 57 in 57 in [facility] Patient Treatment Plan of Care Planned Activity Planned Date Details Description Data Source (s) Prednisone 10 MG Oral Tablet 11/21/2020 12:00:00 AM EDT [facility] Diclofenac Sodium 75 MG Delayed Release Oral Tablet 08/31/19 12:00:00 AM EDT [facility] Acetaminophen 325 MG Oral Tablet 08/30/2020 12:00:00 AM EDT [facility] NITROFURANTOIN, MACROCRYSTALS 25 MG / Ni trofurantoin, Monohydrate 75 MG Oral Capsule 08/25/2020 12:00:00 AM EDT [facility] Cephalexin 500 MG Oral Capsule 08/22/2020 12:00:00 AM EDT [facility] sodium chloride (preservative free) 0.9 % flush 10 mL 08/21/2020 06:24:49 PM [facility] Acetaminophen 325 MG Oral Tablet 08/21/2020 12:00:00 AM [facility] Cephalexin 500 MG Oral Capsule 08/21/2020 12:00:00 AM [facility] sennosides, SNF 8.6 MG Oral Tablet 08/18/2020 12:00:00 AM [facility] ropinirole 0.25 MG Oral Tablet 08/18/2020 12:00:00 AM [facility] POLYETHYLENE GLYCOL 3350 142 MG/ML Oral Solution 08/18/2020 12:00:0 0 AM [facility] calcium polycarbophil 625 MG Oral Tablet 08/18/2020 12:00:00 AM [facility] montelukast 10 MG Oral Tablet 08/18/2020 12:00:00 AM [facility] Desmopressin Acetate 0.01 MG/ACTUAT Nasal [place] 08/18/2020 12:00:00 AM [facility] 30 ACTUAT umeclidinium 0.0625 MG/ACTUAT / vilanterol 0.025 MG/ACTUAT Dry Powder Inhaler [Anoro] 08/18/2020 12:00:00 AM EST [facility] albuterol (PROVENTIL HFA;VENTOLIN HFA) 108 (90 Base) M CG/ACT inhaler 08/18/2020 12:00:00 AM [facility] Trazodone Hydrochloride 150 MG Oral Tablet 08/09/2020 12:00:00 AM E [facility] Esomeprazole 20 MG Delayed Release Oral Capsule 07/19/2020 12:00:00 AM [facility] sennosides, SNF 8.6 MG Oral Tablet 06/20/2020 12:00:00 AM [facility] ropinirole 0.25 MG Oral Tablet 06/20/2020 12:00:00 AM [facility] Desmopressin Acetate 0.01 MG/ACTUAT Nasal [place] 06/20/2020 12:00:00 AM [facility] 30 ACTUAT umeclidinium 0.0625 MG/ACTUAT / vilanterol 0.025 MG/ACTUAT Dry Powder Inhaler [Anoro] 06/20/2020 12:00:[address] [facility] albuterol (PROVENTIL HFA;VENTOLIN HFA) 108 (90 Base) M CG/ACT inhaler 06/20/2020 12:00:00 AM [facility] Esomeprazole 20 MG Delayed Release Oral Capsule 06/20/2020 12:00:00 AM [facility] Multiple Vitamins-Iron (MULTIVITAMIN WITH IRON) TABS 021 12:00:00 AM [facility] calcium polycarbophil 625 MG Oral Tablet 05/27/2020 12:00:00 AM [facility] POLYETHYLENE GLYCOL 3350 142 MG/ML Oral Solution 05/27/2020 12:00:0 0 AM [facility] montelukast 10 MG Oral Tablet 05/27/2020 12:00:00 AM [facility] quetiapine 100 MG Oral Tablet 05/04/2020 12:00:00 AM [facility] doxycycline hyclate 100 MG Oral Tablet 05/04/2020 12:00:00 AM [facility] quetiapine 25 MG Oral Tablet 04/26/2020 12:00:00 AM [facility] Multiple Vitamins-Iron (MULTIVITAMIN WITH IRON) TABS 020 12:00:00 AM [facility] Esomeprazole 20 MG Delayed Release Oral Capsule 04/25/2020 12:00:00 AM [facility] sennosides, SNF 8.6 MG Oral Tablet 04/25/2020 12:00:00 AM [facility] 30 ACTUAT umeclidinium 0.0625 MG/ACTUAT / vilanterol 0.025 MG/ACTUAT Dry Powder Inhaler [Anoro] 04/25/2020 12:00:00 AM EST [facility] albuterol (PROVENTIL HFA;VENTOLIN HFA) 108 (90 Base) M CG/ACT inhaler 04/25/2020 12:00:00 AM EST [facility] POLYETHYLENE GLYCOL 3350 142 MG/ML Oral Solution 04/25/2020 12:00:0 0 AM EST [facility] montelukast 10 MG Oral Tablet 04/25/2020 12:00:00 AM EST [facility] calcium polycarbophil 625 MG Oral Tablet 04/25/2020 12:00:00 AM EST [facility] Desmopressin Acetate 0.01 MG/ACTUAT Nasal [place] 04/12/2020 12:00:00 AM EST [facility] Esomeprazole 20 MG Delayed Release Oral Capsule 04/04/2020 12:00:00 AM EDT [facility] Clonidine Hydrochloride 0.1 MG Oral Tablet 04/03/2020 12:00:00 AM E DT [facility] benztropine mesylate 1 MG Oral Tablet 04/03/2020 12:00:00 AM EDT [facility] Ibuprofen 600 MG Oral Tablet 04/03/2020 12:00:00 AM EDT [facility] ropinirole 0.25 MG Oral Tablet 04/03/2020 12:00:00 AM EDT [facility] Guanfacine 1 MG Oral Tablet 03/29/2020 12:00:00 AM EDT [facility] 30 ACTUAT umeclidinium 0.0625 MG/ACTUAT / vilanterol 0.025 MG/ACTUAT Dry Powder Inhaler [Anoro] 03/21/2020 12:00:00 AM EDT [facility] 12 HR Bupropion Hydrochloride 150 MG Extended Release Oral Tablet 03/10/2020 12:00:00 AM EDT [facility] Acetaminophen 325 MG Oral Tablet 12/16/2019 12:00:00 AM EDT [facility] albuterol (PROVENTIL HFA;VENTOLIN HFA) 108 (90 Base) M CG/ACT inhaler 12/16/2019 12:00:00 AM EDT [facility] Albuterol 0.83 MG/ML Inhalant Solution 12/16/2019 12:00:00 AM EDT [facility] Albuterol 0.833 MG/ML / Ipratropium [place] 0.167 MG/M L Inhalant Solution 12/16/2019 12:00:00 AM EDT [facility] Ascorbic Acid 60 MG / Beta Carotene 5000 UNT / Copper Sulfate 40 MG / dl-alpha tocopheryl acetate 30 UNT / Sodium Selenite 0.04 MG / Zinc Oxide 40 MG Oral Tablet 10/22/2019 12:00:00 AM EDT [facility] calcium polycarbophil 625 MG Oral Tablet 10/22/2019 12:00:00 AM EDT [facility] 60 ACTUAT Fluticasone propionate 0.25 MG /ACTUAT / salmeterol 0.05 MG/ACTUAT Dry Powder Inhaler 10/22/2019 12:00:00 AM EDT [facility] montelukast 10 MG Oral Tablet 10/22/2019 12:00:00 AM EDT [facility] Trazodone Hydrochloride 100 MG Oral Tablet 10/14/2019 12:00:00 AM E DT [facility] quetiapine 100 MG Oral Tablet 10/14/2019 12:00:00 AM EDT [facility] Trazodone Hydrochloride 50 MG Oral Tablet [facility] olanzapine 10 MG Oral Tablet [facility] ferrous sulfate 325 MG Oral Tablet [facility]
--- NOTE | 2021-03-24 06:13 | MHIPNPDOC ---
[facility] Progress Note Progress Note DATE OF SERVICE: 03/24/21 Patient presented by PSA, meets criteria for involuntary admission, has homicidal ideations, in [facility] women's house. Vital Signs Vital Signs Date Time Temp Pulse Resp B/P (MAP) Pulse Ox O2 Delivery O2 Flow Rate FiO2 03/24/21 06:01 97.9 64 20 104/53 (70) 95 Room Air Laboratory Data 24H Labs Laboratory Tests 2 03/23/21 21:56: Nucleated Red Blood Cells % (auto) 0.0, Anion Gap 6L, Glomerular Filtration Rate > 60.0, Calcium Level 8.4L, Total Bilirubin 0.2, Direct Bilirubin < 0.1, Aspartate Amino Transf (AST/SGOT) 43H, Alanine Aminotransferase (ALT/SGPT) 41, Alkaline Phosphatase 74, Total Protein 6.9, Albumin 3.0L, Albumin/Globulin Ratio 0.8L, Thyroid Stimulating Hormone (TSH) 4.620H, Human Chorionic Gonadotropin, Qual NEGATIVE, Salicylates Level < 1.7L, Acetaminophen Level < 2.0L, Ethyl Alcohol Level < 0.003 03/23/21 23:31: Urine Opiates Screen NEGATIVE, Urine Methadone Screen NEGATIVE, Urine Barbiturates Screen NEGATIVE, Urine Phencyclidine Screen NEGATIVE, Urine Amphetamines Screen NEGATIVE, Urine Benzodiazepines Screen NEGATIVE, Urine Cocaine Metabolite Screen NEGATIVE, Urine Cannabinoids Screen NEGATIVE CBC/BMP Laboratory Tests 03/23/21 21:56 Allergies Coded Allergies: Penicillins (Verified Allergy, Mild, RASH, 03/18/21) GERARDO TOMLIN MD Mar 24, 2021 06:13
--- NOTE | 2021-03-24 08:36 | ECGEPIP ---
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
[2021-03-24] MEDS ORDERED: OMEPRAZOLE 20 MG CAP PO SCH (09:00)
[2021-03-24] MEDS ORDERED: MONTELUKAST 10 MG TAB PO SCH (09:00)
[2021-03-24] MEDS ORDERED: buPROPion **XL** TABLET 150MG (WELLBUTRIN XL) PO SCH (09:00)
[2021-03-24] MEDS ORDERED: VENLAFAXINE **XR** 37.5 MG CAPSULE PO SCH (09:00)
[2021-03-24] MEDS ORDERED: VENL37.598 PO (11:20)
[2021-03-24] MEDS ORDERED: ANOR1AER PO (11:20)
[2021-03-24] MEDS ORDERED: SING10TA32 PO (11:20)
[2021-03-24] MEDS ORDERED: QC F0.52 PO (11:20)
[2021-03-24] MEDS ORDERED: ROPI0.253 PO (11:20)
[2021-03-24] MEDS ORDERED: OMEP20TA2 PO (11:20)
[2021-03-24] MEDS ORDERED: CLON0.2T PO (11:21)
[2021-03-24] MEDS ORDERED: VIST25CA PO (11:21)
[2021-03-24] MEDS ORDERED: SERO50TA PO (11:21)
[2021-03-24] MEDS ORDERED: TOPI50TA9 PO (11:21)
[2021-03-24] MEDS ORDERED: BUPR150T12 PO (11:21)
[2021-03-24] MEDS ORDERED: SUBO4MIS SL (11:21)
[2021-03-24] MEDS ORDERED: CLONI1TA PO (11:21)
[2021-03-24] MEDS ORDERED: SERO200T PO (11:21)
[2021-03-24] MEDS ORDERED: TRAZ1TAB14 PO (11:21)
[2021-03-24 12:09] LABS: RSV AMPLIFICATION NEGATIVE (NEGATIVE)
[2021-03-24] MEDS ORDERED: SENN-80 PO (12:53)
[2021-03-24] MEDS ORDERED: traZODone 50 MG TAB PO PRN (14:30)
[2021-03-24] MEDS ORDERED: MOM 30ML SUSPENSION UDC PO PRN (14:30)
[2021-03-24] MEDS ORDERED: ACETAMINOPHEN TAB 650MG DOSE (2X325MG) PO PRN (14:30)
[2021-03-24] MEDS ORDERED: MAALOX 30 ML SUSP *UDC PO PRN (14:30)
[2021-03-24] MEDS ORDERED: HOME MED LIST COMPLETE! XX SCH (14:45)
[2021-03-24] MEDS ORDERED: rOPINIRole 0.25 MG TAB(REQUIP) PO SCH (16:00)
[2021-03-24] MEDS ORDERED: BUPRENORPHINE/NALOXONE 8-2MG SUBLINGUAL TABLET(SUBOXONE) SL SCH (16:00)
[2021-03-24] MEDS ORDERED: hydrOXYzine 25 MG TAB PO SCH (16:00)
[2021-03-24] MEDS ORDERED: BUPRENORPHINE/NALOXONE 2-0.5MG SUBLINGUAL TABLET(SUBOXONE) SL SCH (16:00)
[2021-03-24] MEDS ORDERED: SENNA 8.6 MG TAB (SENOKOT) PO PRN (16:50)
[2021-03-24 17:50] VITALS: BP 134/84
[2021-03-24] MEDS: BUPRENORPHINE/NALOXONE 2-0.5MG SUBLINGUAL TABLET(SUBOXONE) SL SCH (20:20)
[2021-03-24] MEDS: OMEPRAZOLE 20 MG CAP PO SCH (20:23)
[2021-03-24] MEDS: cloNIDine 0.2 MG TAB PO SCH (20:24)
[2021-03-24] MEDS: buPROPion **XL** TABLET 150MG (WELLBUTRIN XL) PO SCH (20:24)
[2021-03-24] MEDS: VENLAFAXINE **XR** 37.5 MG CAPSULE PO SCH (20:25)
[2021-03-24] MEDS ORDERED: cloNIDine 0.2 MG TAB PO SCH (21:00)
[2021-03-24] MEDS ORDERED: QUEtiapine FUMARATE 50MG TAB PO SCH (21:00)
[2021-03-24] MEDS ORDERED: QUEtiapine FUMARATE 200 MG TAB PO SCH (21:00)
[2021-03-24] MEDS ORDERED: traZODone 50 MG TAB PO SCH (21:00)
[2021-03-24] MEDS ORDERED: cloNIDine 0.1MG TABLET PO SCH (21:00)
[2021-03-24] MEDS: QUEtiapine FUMARATE 200 MG TAB PO SCH (22:32)
[2021-03-24] MEDS: rOPINIRole 0.25 MG TAB(REQUIP) PO SCH (22:32)
[2021-03-24] MEDS: traZODone 50 MG TAB PO SCH (22:32)
[2021-03-25 06:34] VITALS: BP 123/65
[2021-03-25] MEDS: VENLAFAXINE **XR** 37.5 MG CAPSULE PO SCH (07:39)
[2021-03-25] MEDS: cloNIDine 0.1MG TABLET PO SCH ×2 (07:39→14:47)
[2021-03-25] MEDS: QUEtiapine FUMARATE 50MG TAB PO SCH ×2 (07:39→14:26)
[2021-03-25] MEDS: rOPINIRole 0.25 MG TAB(REQUIP) PO SCH ×3 (07:39→21:08)
[2021-03-25] MEDS: OMEPRAZOLE 20 MG CAP PO SCH (07:39)
[2021-03-25] MEDS: buPROPion **XL** TABLET 150MG (WELLBUTRIN XL) PO SCH (07:39)
[2021-03-25] MEDS: MONTELUKAST 10 MG TAB PO SCH (07:40)
[2021-03-25] MEDS: BUPRENORPHINE/NALOXONE 2-0.5MG SUBLINGUAL TABLET(SUBOXONE) SL SCH ×3 (08:57→21:02)
[2021-03-25] MEDS ORDERED: INFLUENZA QUADRIVALENT PF VACCINE 0.5ML SYRINGE IM ONE (09:00)
[2021-03-25] MEDS: DESMOPRESSIN 0.01% NASAL SOLN 5 ML BTL SCH ×2 (14:25→21:09)
[2021-03-25 16:20] VITALS: BP 121/66
--- NOTE | 2021-03-25 16:25 | HPEPDOC ---
[facility] Medical History & Physical Date of Admission Mar 24, 2021 Date of Service: Mar 25, 2021 Other Provider Christopher Lopez MD psychiatry Attending Physician: ABDULLAHI CAPPS DO History and Physical CHIEF COMPLAINT: Split personality wanting to harm other people in [facility] woman's house HISTORY OF PRESENT ILLNESS: Patient is a 31-year-old female who presented to the inpatient mental health unit with a chief complaint saying that one of her personalities wanted to harm another person in the [facility] woman's house. Patient states that she did not want to have the [facility] staff having to deal with this so she decided come to the hospital. Patient states that she has a history of von Willebrand's disease and is currently on her menstrual period and needs her nasal spray in order to help with the bleeding. Patient has a history of asthma and states that she was recently diagnosed with viral bronchitis and a sinus infection for which she is on antibiotics for. Patient is otherwise feeling well today denies any complaints. PAST MEDICAL HISTORY: 1. Asthma. 2. Depression. 3. Von Willebrand's disease. PAST SURGICAL HISTORY: 1. Multiple C-sections. 2. Incision and drainage and thumb abscess. SOCIAL HISTORY: Patient smokes cigarettes and will occasionally drink alcohol. Patient is in treatment for addictions and says she was mostly recently using crack cocaine and opiates FAMILY HISTORY: Family history of von Willebrand's disease and drug addiction ALLERGIES: Please see below. REVIEW OF SYSTEMS: General: Patient denies fevers HEENT: Patient denies headaches Cardiovascular: Patient denies chest pain Respiratory: Patient denies shortness of breath, cough GI: Patient denies abdominal pain, nausea, vomiting, diarrhea : Patient denies increased frequency or pain with urination Extremities: Patient denies swelling or pain in extremities Neurological: Patient denies numbness or tingling in legs Skin: Patient denies any new rashes or lesions. Hematologic: Patient denies any easy bruising. Lymphatic: Patient denies any lumps lumps or bumps in neck, axilla, or groin HOME MEDICATIONS: Please see below. PHYSICAL EXAMINATION: VITAL SIGNS: Temperature 98.3, pulse 55, respiratory rate 16, blood pressure 120/68, pulse oximetry 97% on room air. General: Alert and oriented female patient who was sitting in the dining room when I walked in. Patient was walked to the examination room without any difficulty. Patient did not appear to be in any acute distress. HEENT: Normocephalic, atraumatic, moist mucous membranes. Neck: No lymphadenopathy or thyromegaly Cardiac: Regular rate and rhythm, no murmurs, normal S1, normal S2 Pulm: Clear to auscultation bilaterally. No wheezes, rhonchi, rales Abd: Nondistended, nontender to palpation, normal bowel sounds Ext: No edema bilateral lower extremities Neuro: Patient was able to move all 4 extremities on command and reported equal sensation light touch in all 4 extremities. Skin: Skin of the head, neck, upper and lower extremities was examined did not show any evidence of rash or wounds. LABORATORY DATA: See below. IMAGING: No imaging is been performed MICROBIOLOGY: Please see below. ASSESSMENT: 31-year-old female who presented to the inpatient mental health unit for homicidal ideations. . PLAN: 1. Depression. Patient will continue treatment per psychiatry. 2. Von Willebrand's disease. Patient states that she is on her menstrual cycle and needs her nasal spray. Patient says that she needs the desmopressin by name so this has been given to her. We will continue to monitor and give her more over the next day or so if the patient requires this. 3. Asthma. Continue with her home inhalers And montelukast. Disposition: Patient be discharged per psychiatry. Thank you for this consult and please call hospitalist if the need arises. Vital Signs Vital Signs Date Time Temp Pulse Resp B/P (MAP) Pulse Ox O2 Delivery O2 Flow Rate FiO2 03/25/21 14:47 120/68 03/25/21 06:34 98.3 55 16 97 Room Air Home Medications Scheduled Buprenorphine HCl/Naloxone HCl (Suboxone 4 mg-1 mg Sl Film) 1 Each Film, 1 STRIP SL TID Bupropion Hcl (Bupropion Xl) 150 Mg Tab.er.24h, 150 MG PO DAILY Clonidine HCl (Clonidine HCl) 0.2 Mg Tablet, 0.2 MG PO QHS Clonidine Hcl (Clonidine HCl) 0.1 Mg Tablet, 0.1 MG PO BID QAM, AFTERNOON Montelukast Sodium (Singulair) 10 Mg Tablet, 10 MG PO DAILY Omeprazole (Omeprazole) 20 Mg Tablet.dr, 20 MG PO DAILY Psyllium Husk (Fiber) 0.52 Gm Capsule, 1 CAP PO DAILY Quetiapine Fumarate (Seroquel) 50 Mg Tablet, 50 MG PO BID QAM, AFTERNOON Quetiapine Fumarate (Seroquel) 200 Mg Tablet, 200 MG PO QHS Ropinirole HCl (Ropinirole HCl) 0.25 Mg Tablet, 0.25 MG PO TID Trazodone HCl (Trazodone HCl) 150 Mg Tablet, 150 MG PO QPM Umeclidinium Brm/Vilanterol Tr (Anoro Ellipta 62.5-25 Mcg INH) 1 Each Blst.w.dev, 1 PUFF PO DAILY Venlafaxine HCl (Venlafaxine HCl ER) 37.5 Mg Cap.er.24h, 37.5 MG PO DAILY Scheduled PRN Hydroxyzine Pamoate (Vistaril) 25 Mg Capsule, 25 MG PO TID PRN for ANXIETY Sennosides (Senna) 8.6 Mg Tablet, 8.6 MG PO DAILY PRN for CONSTIPATION Allergies Coded Allergies: Penicillins (Verified Allergy, Mild, RASH, 03/18/21) A-FIB/CHADSVASC A-FIB History Current/History of A-Fib/PAF?: No ABDULLAHI CAPPS DO Mar 25, 2021 16:25
[2021-03-25] MEDS: traZODone 50 MG TAB PO SCH (21:07)
[2021-03-25] MEDS: cloNIDine 0.2 MG TAB PO SCH (21:08)
[2021-03-25] MEDS: QUEtiapine FUMARATE 200 MG TAB PO SCH (21:08)
[2021-03-25] MEDS: hydrOXYzine 25 MG TAB PO PRN (21:08)
[2021-03-26] VITALS (9 sets, daily range): BP systolic 118–146; BP diastolic 58–78
[2021-03-26] MEDS: VENLAFAXINE **XR** 37.5 MG CAPSULE PO SCH (08:48)
[2021-03-26] MEDS: MONTELUKAST 10 MG TAB PO SCH (08:48)
[2021-03-26] MEDS: BUPRENORPHINE/NALOXONE 2-0.5MG SUBLINGUAL TABLET(SUBOXONE) SL SCH ×3 (08:48→20:55)
[2021-03-26] MEDS: buPROPion **XL** TABLET 150MG (WELLBUTRIN XL) PO SCH (08:48)
[2021-03-26] MEDS: cloNIDine 0.1MG TABLET PO SCH ×2 (08:49→15:25)
[2021-03-26] MEDS: QUEtiapine FUMARATE 50MG TAB PO SCH ×2 (08:49→15:25)
[2021-03-26] MEDS: OMEPRAZOLE 20 MG CAP PO SCH (08:49)
[2021-03-26] MEDS: rOPINIRole 0.25 MG TAB(REQUIP) PO SCH ×3 (08:49→20:55)
[2021-03-26] MEDS: hydrOXYzine 25 MG TAB PO PRN ×2 (08:49→20:57)
[2021-03-26] MEDS ORDERED: LORazepam 2 MG/ML VIAL IM STA (09:56)
[2021-03-26] MEDS ORDERED: HALOPERIDOL 5MG/ML VIAL (J1630 PER 1) IM STA (09:56)
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
[2021-03-26 13:51] LABS: BASO % 0.6 % (0.0-1.0); EOS # 0.2 10^3/uL (0.0-0.5); EOS % 2.3 % (0.0-3.0); HEMATOCRIT 34.7 % (36.0-47.0); HEMOGLOBIN 11.7 g/dl (12.0-15.5); LYMPH # 2.4 10^3/uL (1.5-5.0); LYMPH % 33.6 % (24.0-44.0); MEAN CORPUSCULAR HEMOGLOBIN 30.1 pg (27.0-33.0); MEAN CORPUSCULAR HGB CONC 33.7 g/dl (32.0-36.5); MEAN CORPUSCULAR VOLUME 89.2 fl (80.0-96.0); MONO # 0.6 10^3/uL (0.0-0.8); MONO % 7.9 % (2.0-8.0); PLATELET COUNT, AUTOMATED 273 10^3/uL (150-450); RED BLOOD COUNT 3.89 10^6/uL (4.00-5.40); WHITE BLOOD COUNT 7.2 10^3/uL (4.0-10.0)
[2021-03-26 14:17] LABS: BLOOD UREA NITROGEN 16 MG/DL (7-18); CALCIUM LEVEL 8.2 MG/DL (8.5-10.1); CARBON DIOXIDE LEVEL 28 MEQ/L (21-32); CHLORIDE LEVEL 105 MEQ/L (98-107); CREATININE FOR GFR 0.83 MG/DL (0.55-1.30); GLOMERULAR FILTRATION RATE > 60.0 (>60); GLUCOSE, FASTING 127 MG/DL (70-100); MAGNESIUM LEVEL 1.9 MG/DL (1.8-2.4); POTASSIUM SERUM 4.5 MEQ/L (3.5-5.1); SODIUM LEVEL 137 MEQ/L (136-145); TROPONIN I < 0.02 NG/ML (< 0.10)
--- NOTE | 2021-03-26 15:25 | MHHPE ---
[facility] HISTORY AND PHYSICAL DATE OF ADMISSION: 03/24/2021 CHIEF COMPLAINT: She feels sick. HISTORY OF PRESENT ILLNESS: She is 31 years old. She was brought into the emergency room admitted psychiatric. I saw her on video in the presence of staff to gather some history and then later saw her in the inpatient psychiatric unit face to face. She indicates has been stressed, is at present at [facility], she says it is a rehab facility, inpatient, and that she is due to be there for two months and had attended a place in [place]. She was apparently brought in by police and she indicated that she was upset when there and wanted to hurt others and says was concerned with one particular person. She also says that she has dissociative identity disorder and that she was concerned that one of the other personalities "may come out" and hurt the other person and that she may not be aware. Says does not wish to be at [facility], but that she needs to be there for now. According to the emergency room note, the patient had been testing other residents there and had been aggressive as well and that informed that she did not want to help anyone, but she was concerned that she would. Was aggressive with other residents and when this escalated including matters related to getting a second helping before others had got their dinner and was further concerned. Has apparently a history of cutting and burning thoughts and a suicide attempt when she was 14. The note also suggested that she had auditory hallucinations and that there are others, but she did not talk about this when I saw her. She did say that she thinks it was not a good place for her to be, [facility], and that she needs there at the moment. She also been diagnosed with dissociated identity disorder, bipolar disorder, posttraumatic stress disorder (PTSD) and has had several hospitalizations including at [facility] and then in [facility] last year. Has used heroin, leonard, synthetic marijuana use. It should be noted toxicology screen was negative. Stopped drinking about 13 months ago. PAST PSYCHIATRIC HISTORY: As indicated above, has had previous hospitalizations at [facility] and then [place]. She suggests that she is seen at [facility] for mental health as well, but that is not quite clear. Says has been diagnosed with dissociative identity disorder, bipolar disorder and posttraumatic stress disorder (PTSD) SUBSTANCE ABUSE HISTORY: As indicated above, care at [facility], says is due to be there for a few months. MEDICATIONS: Has been ropinirole 2.2 mg three times a day, Singulair, omeprazole 20 mg daily, venlafaxine 37.5 mg daily, trazodone 150 mg at night, Suboxone 4 mg/1 mg one sublingual three times a day, quetiapine (Seroquel) 50 mg twice a day and 200 mg at bedtime, bupropion 150 mg daily, hydroxyzine 25 mg three times a day as needed for anxiety, clonidine 0.1 mg twice a day. SOCIAL HISTORY: Somewhat vague about it, says does have family in [place] and little family here locally. MENTAL STATUS EXAMINATION: Neat, cooperative, no agitation. No psychomotor retardation, coherent, appears irritable at times. Denies any suicidal thoughts or intents. Denies any thoughts of harming anyone else, but expresses concern that she might, due to one other personalities as she puts it. Currently no evidence of any psychosis. Does not appear internally preoccupied. No delusions elicited. Cognition is grossly intact. Her judgment is questionable as is insight. ASSESSMENT: 1. Bipolar disorder by history. 2. Posttraumatic stress disorder by history. 3. Dissociative identity disorder by history. 4. Heroin use disorder. Has been fluctuated and is concerned regarding her being aggressive towards other, in particular residents at [facility]. PLAN: She is admitted to inpatient psychiatric unit and placed on relevant precautions and will continue with her current medication regimen and I suggests that we get collateral information, old records to help clarify diagnosis. She will receive a medicine consult if indicated. I would encourage her to participate in treatment and activities on the unit. She will be discharged to follow up when she is stable. Anticipate a 5 to 10 day stay. The assessment took 40 minutes.
[2021-03-26] MEDS: QUEtiapine FUMARATE 200 MG TAB PO SCH ×2 (16:18→20:55)
[2021-03-26] MEDS: cloNIDine 0.2 MG TAB PO SCH (20:57)
[2021-03-26] MEDS: CEFDINIR 300 MG CAP (OMNICEF) PO SCH (20:57)
[2021-03-26] MEDS: traZODone 50 MG TAB PO SCH (20:57)
[2021-03-27 06:31] VITALS: BP 152/70
[2021-03-27] MEDS ORDERED: FIBER-CON 625 MG TAB PO SCH (09:00)
[2021-03-27] MEDS: buPROPion **XL** TABLET 150MG (WELLBUTRIN XL) PO SCH (09:12)
[2021-03-27] MEDS: CEFDINIR 300 MG CAP (OMNICEF) PO SCH (09:12)
[2021-03-27] MEDS: rOPINIRole 0.25 MG TAB(REQUIP) PO SCH (09:12)
[2021-03-27] MEDS: OMEPRAZOLE 20 MG CAP PO SCH (09:12)
[2021-03-27] MEDS: QUEtiapine FUMARATE 50MG TAB PO SCH (09:12)
[2021-03-27] MEDS: hydrOXYzine 25 MG TAB PO PRN (09:13)
[2021-03-27 09:14] VITALS: BP 152/70
[2021-03-27] MEDS: cloNIDine 0.1MG TABLET PO SCH (09:14)
[2021-03-27] MEDS: MONTELUKAST 10 MG TAB PO SCH (09:14)
[2021-03-27] MEDS: VENLAFAXINE **XR** 37.5 MG CAPSULE PO SCH (09:14)
[2021-03-27] MEDS: BUPRENORPHINE/NALOXONE 2-0.5MG SUBLINGUAL TABLET(SUBOXONE) SL SCH (10:55)
[2021-03-27] MEDS ORDERED: BUPR150T12 PO (13:44)
[2021-03-27] MEDS ORDERED: SERO200T PO (13:44)
[2021-03-27] MEDS ORDERED: TRAZ1TAB14 PO (13:44)
[2021-03-27] MEDS ORDERED: VENL37.598 PO (13:44)
[2021-03-27] MEDS ORDERED: CEFD300CAP PO (13:44)
[2021-03-27] MEDS ORDERED: SERO50TA PO (13:44)
[2021-03-27] MEDS ORDERED: LACTULOSE 20 GM/30 ML SYRUP UD PO PRN (15:50)
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
== END 2021-03-27 14:19 | disposition home or self-care (01) | DRG 753 ==
LOC: M ED 20:08 → M ED INP 03-24 13:49 → M PSY 03-24 18:00
PROVIDERS: ADMIT Student in an Organized Health Care Education/Training Program; ATTEND Student in an Organized Health Care Education/Training Program
DX: F31.9 Bipolar disorder, unspecified (principal); F11.10 Opioid abuse, uncomplicated; F43.10 Post-traumatic stress disorder, unspecified; F44.81 Dissociative identity disorder; Z79.899 Other long term (current) drug therapy; J45.909 Unspecified asthma, uncomplicated; F17.210 Nicotine dependence, cigarettes, uncomplicated; Z78.1 Physical restraint status; J32.9 Chronic sinusitis, unspecified

== ENCOUNTER 2021-03-27 19:27 | Emergency (ER) | payer OTHER ==
[~2021-03-27] VITALS: Ht 144.8 cm; Wt 116.0 kg
[~2021-03-27 19:27] MED LIST changes: +ANOR1AER PO; +BUPR150T12 PO; +CEFD300CAP PO; +CLON0.2T PO; +CLONI1TA PO; +EFFE37.5 PO; +HYDR-3363 PO; +LAMO5CHW PO; +OMEP20TA2 PO; +QC F0.52 PO; +ROPI0.253 PO; +SENN-80 PO; +SERO200T PO; +SERO50TA PO; +SING10TA32 PO; +SUBO4MIS SL; +TOPI50TA9 PO; +TRAZ1TAB14 PO; +VENL37.598 PO; +VIST25CA PO; +requip; +trazadone
--- OUTSIDE RECORDS SUMMARY | 2021-03-27 19:39 | CCD ---
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 Oral Capsule (KEFLEX) 08/21/2020 12:00:00 AM EST 500 mg Oral active Take 1 capsule by [facility] Three times daily for 7 days [facility] Acetaminophen 325 MG Oral Tablet Acetaminophen 325 MG Oral T ablet 08/21/2020 12:00:00 AM EST 650 mg Oral active Take 2 tablets by mouth every 6 (six) hours as needed for Pain for up to 10 days [facility] Desmopressin Acetate 0.01 MG/ACTUAT [place] desmopressin (DDAVP NASAL) 0.01 % solution desmopressin (DDAVP NASAL) 0.01 % solution 08/18/2020 12:00:00 AM EST 10 ug Nasal active Von Willebrand disease 1 spray (10 mcg total) into each nostril 2 (two) times a day [facility] Von Willebrand disease 30 ACTUAT umeclidinium 0.0625 MG/ACTUAT / vilanterol 0.025 MG/ACTUAT Dry Powder Inhaler [Anoro] ANORO ELLIPTA 62.5-25 MCG/INH inhaler ANORO ELLIPTA 62.5-25 MCG/INH inhaler 08/18/2020 12:00:00 AM EST 1 {puff} Inhalation active Moderate persistent asthma without complication Inhale 1 puf f daily [facility] Moderate persistent asthma without compl ication albuterol (PROVENTIL HFA;VENTOLIN HFA) 108 (90 Base) M CG/ACT inhaler 3940-1862-19 08/18/2020 12:00:00 AM EST 2 {puff} Inhalation active Moderate persistent asthma without complication Inhale 2 puffs every 4 (four) hours as needed for wheezing [facility] Moderate persistent asthma without compl ication POLYETHYLENE GLYCOL 3350 142 MG/ML Oral Solution polyethylene glycol (GLYCOLAX) 17 GM/SCOOP powder polyethylene glycol (GLYCOLAX) 17 GM/SCOOP powder 08/08 12:00:00 AM EST 17 g Oral active Irri table bowel syndrome with constipation Take 17 g by mouth daily 1 capful= 17 g [facility] Irritable bowel syndrome with constipati on calcium polycarbophil 625 MG Oral Tablet polycarbophil (FIBER-LAX) 625 MG tablet polycarbophil (FIBER-LAX) 625 MG tablet 08/18/2020 12:00:00 AM EST 625 mg Oral active Irritable bowel syndrome with consti pation Take 1 tablet (625 mg total) by mouth daily [facility] Irritable bowel syndrome with constipati on montelukast 10 MG Oral Tablet montelukast (SINGULAIR) 10 MG tablet montelukast (SINGULAIR) 10 MG tablet 08/18/2020 12:00:00 AM EST 10 mg Oral active Moderate persistent asthma without complication Take 1 tablet (10 mg total) by mouth daily [facility] Moderate persistent asthma without compl ication sennosides, SHELTER 8.6 MG Oral Tablet senna (SENOKOT) 8.6 MG TABS senna (SENOKOT) 8.6 MG TABS 08/18/2020 12:00:00 AM EST 8.6 mg Oral a ctive Irritable bowel syndrome with constipation Take 1 tablet (8.6 mg total ) by mouth daily For treatment of constipation, hold for loose stools [facility] Irritable bowel syndrome with constipati on ropinirole 0.25 MG Oral Tablet rOPINIRole (REQUIP) 0.2 5 MG tablet rOPINIRole (REQUIP) 0.25 MG tablet 08/18/2020 12:00:00 AM EST active Restless leg syndrome TAKE ONE TABLET BY MOUTH THR EE TIMES A DAY NEEDED FOR RESTLESS LEGS [facility] Restless leg syndrome 24 HR Bupropion Hydrochloride 150 MG Extended Release Oral Tablet [Wellbutrin] Wellbutrin XL 08/09/2020 05:00:00 AM EST 1.0 Tablet Oral acti ve NETSMART ([facility]) Trazodone Hydrochloride 150 MG Oral Tablet traZODone hydroch loride 08/09/2020 05:00:00 AM EST 1.0 Tablet Oral active [facility]SM[facility] ([facility]) Prazosin 1 MG Oral Capsule [Minipress] Minipress 08/09/2020 05:0 0:00 AM EST 1.0 Capsule Oral active [facility]SMART ([facility]) quetiapine 25 MG Oral Tablet [Seroquel] SEROquel 08/09/2020 05: 00:00 AM EST 1.0 Tablet Oral active [facility]SMART ([facility]) lamotrigine 25 MG Oral Tablet lamoTRIgine 08/09/2020 05:00:[address] 2.0 Tablet Oral active [facility]SM[facility] ([facility]) topiramate 25 MG Oral Capsule [Topamax] Topamax 08/09/2020 05: 00:00 AM EST 1.0 Capsule Oral active [facility] ([facility]) Hydroxyzine Pamoate 25 MG Oral Capsule [Vistaril] Vistaril 08/09/2020 05:00:00 AM EST 1.0 Capsule Oral active NETSM ART ([facility]) Prazosin 5 MG Oral Capsule [Minipress] Minipress 08/09/2020 05:0 0:00 AM EST 1.0 Capsule Oral active [facility] ([facility]) Buprenorphine 4 MG / Naloxone 1 MG Oral Strip [Suboxone] Sub oxone 08/09/2020 05:00:00 AM EST 1.0 Film Sublingual active NETSMART ([facility]) Clonidine Hydrochloride 0.1 MG Oral Tablet cloNIDine HCl 08/09/2020 05:00:00 AM EST 1.0 Tablet Oral active NETSMA RT ([facility]) Trazodone Hydrochloride 150 MG Oral Tablet traZODone ( DESYREL) 150 MG tablet traZODone (DESYREL) 150 MG tablet 08/09/2020 12:00:00 AM EST active [facility] Esomeprazole 20 MG Delayed Release Oral Capsule esomeprazole (NEXIUM) 20 MG capsule esomeprazole (NEXIUM) 20 MG capsule 07/19/2020 12:00:00 AM EST active [facility] Buprenorphine 4 MG / Naloxone 1 MG Oral Strip [Suboxone] Sub oxone 07/11/2020 05:00:00 AM EST 1.0 Film Sublingual active [facility]SMART ([employer]) Buprenorphine 4 MG / Naloxone 1 MG Oral Strip [Suboxone] Sub oxone 07/11/2020 05:00:00 AM EST 1.0 Film Sublingual active [facility] ([facility]) Buprenorphine 4 MG / Naloxone 1 MG Oral Strip [Suboxone] Sub oxone 07/11/2020 05:00:00 AM EST 1.0 Film Sublingual active [facility] ([facility]) topiramate 25 MG Oral Capsule [Topamax] Topamax 06/27/2020 05: 00:00 AM EST 1.0 Capsule Oral active [facility]SMART ([facility]) 30 ACTUAT umeclidinium 0.0625 MG/ACTUAT / vilanterol 0.025 MG/ACTUAT Dry Powder Inhaler [Anoro] ANORO ELLIPTA 62.5-25 MCG/INH inhaler ANORO ELLIPTA 62.5-25 MCG/INH inhaler 06/20/2020 12:00:00 AM EST 1 {puff} Inhalation aborted Moderate persistent asthma without complication Inhale 1 puf f daily [facility] Moderate persistent asthma without compl ication albuterol (PROVENTIL HFA;VENTOLIN HFA) 108 (90 Base) M CG/ACT inhaler [id number] 06/20/2020 12:00:00 AM EST 2 {puff} Inhalation aborted Moderate persistent asthma without complication Inhale 2 puffs every 4 (four) hours as needed for wheezing [facility] Moderate persistent asthma without compl ication Multiple Vitamins-Iron (MULTIVITAMIN WITH IRON) TABS 0904-05 31-60 06/20/2020 12:00:00 AM EST 1 {tbl} Oral active Polysubstance ab use Take 1 tablet by mouth daily [facility] Polysubstance abuse Desmopressin Acetate 0.01 MG/ACTUAT [place] desmopressin (DDAVP NASAL) 0.01 % solution desmopressin (DDAVP NASAL) 0.01 % solution 06/20/2020 12:00:00 AM EST 10 ug Nasal aborted Von Willebrand disease 1 spray (10 mcg total) into each nostril 2 (two) times a day [facility] Von Willebrand disease sennosides, SHELTER 8.6 MG Oral Tablet senna (SENOKOT) 8.6 MG TABS senna (SENOKOT) 8.6 MG TABS 06/20/2020 12:00:00 AM EST 8.6 mg Oral a borted Irritable bowel syndrome with constipation Take 1 tablet (8.6 mg tota l) by mouth daily For treatment of constipation, hold for loose stools [facility] Irritable bowel syndrome with constipati on ropinirole 0.25 MG Oral Tablet rOPINIRole (REQUIP) 0.2 5 MG tablet rOPINIRole (REQUIP) 0.25 MG tablet 06/20/2020 12:00:00 AM EST aborted Restless leg syndrome TAKE ONE TABLET BY MOUTH THR EE TIMES A DAY NEEDED FOR RESTLESS LEGS [facility] Restless leg syndrome Esomeprazole 20 MG Delayed Release Oral Capsule esomeprazole (SM ESOMEPRAZOLE MAGNESIUM) 20 MG capsule esomeprazole (SM ESOMEPRAZOLE MAGNESIUM) 20 MG capsule 06/20/2020 12:00:00 AM EST 20 mg Oral active GERD without esophagitis Take 1 capsule (20 mg total) by mouth daily [facility] GERD without esophagitis Trazodone Hydrochloride 150 MG Oral Tablet traZODone hydroch loride 06/13/2020 05:00:00 AM EST 1.0 Tablet Oral active [facility] ([facility]) Buprenorphine 4 MG / Naloxone 1 MG Oral Strip [Suboxone] Sub oxone 06/13/2020 05:00:00 AM EST 1.0 Film Sublingual active [facility] ([facility]) Clonidine Hydrochloride 0.1 MG Oral Tablet cloNIDine HCl 05/30/2020 05:00:00 AM EST 1.0 Tablet Oral active NETSMA RT ([employer]) Prazosin 1 MG Oral Capsule [Minipress] Minipress 05/30/2020 05:0 0:00 AM EST 1.0 Capsule Oral active NETSMART ([facility] [employer]) Trazodone Hydrochloride 100 MG Oral Tablet traZODone hydroch loride 05/30/2020 05:00:00 AM EST 1.0 Tablet Oral active [facility] ([employer]) quetiapine 25 MG Oral Tablet [Seroquel] SEROquel 05/30/2020 05: 00:00 AM EST 1.0 Tablet Oral active [facility]SMART ([facility]) lamotrigine 25 MG Oral Tablet lamoTRIgine 05/30/2020 05:00:[address] 2.0 Tablet Oral active [facility]SMART ([facility]) 24 HR Bupropion Hydrochloride 150 MG Extended Release Oral Tablet [Wellbutrin] Wellbutrin XL 05/30/2020 05:00:00 AM EST 1.0 Tablet Oral acti ve [facility]SMART ([facility]) Hydroxyzine Pamoate 25 MG Oral Capsule [Vistaril] Vistaril 05/30/2020 05:00:00 AM EST 1.0 Capsule Oral active NETSM ART ([facility]) Buprenorphine 4 MG / Naloxone 1 MG Oral Strip [Suboxone] Sub oxone 05/30/2020 05:00:00 AM EST 1.0 Film Sublingual active [facility]SMART ([facility]) Buprenorphine 4 MG / Naloxone 1 MG Oral Strip Buprenorphine- Naloxone 05/30/2020 05:00:00 AM EST 1.0 Film Sublingual active [facility]SMART ([facility]) calcium polycarbophil 625 MG Oral Tablet polycarbophil (FIBER-LAX) 625 MG tablet polycarbophil (FIBER-LAX) 625 MG tablet 05/27/2020 12:00:00 AM EST 625 mg Oral aborted Irritable bowel syndrome with consti pation Take 1 tablet (625 mg total) by mouth daily [facility] Irritable bowel syndrome with constipati on montelukast 10 MG Oral Tablet montelukast (SINGULAIR) 10 MG tablet montelukast (SINGULAIR) 10 MG tablet 05/27/2020 12:00:00 AM EST 10 mg Oral aborted Moderate persistent asthma without complication Take 1 tablet (10 mg total) by mouth daily [facility] Moderate persistent asthma without compl ication POLYETHYLENE GLYCOL 3350 142 MG/ML Oral Solution polyethylene glycol (GLYCOLAX) 17 GM/SCOOP powder polyethylene glycol (GLYCOLAX) 17 GM/SCOOP powder 05/10 12:00:00 AM EST 17 g Oral aborted Irri table bowel syndrome with constipation Take 17 g by mouth daily 1 capful= 17 g [facility] Irritable bowel syndrome with constipati on Buprenorphine 4 MG / Naloxone 1 MG Oral Strip Buprenorphine- Naloxone 05/17/2020 05:00:00 AM EST 1.0 Film Sublingual active [facility]SMART ([facility]) Prazosin 5 MG Oral Capsule [Minipress] Minipress 05/17/2020 05:0 0:00 AM EST 1.0 Capsule Oral active [facility]SMART ([facility]) lamotrigine 25 MG Oral Tablet lamoTRIgine 05/17/2020 05:00:[address] 2.0 Tablet Oral active [facility]SMART ([facility]) quetiapine 25 MG Oral Tablet [Seroquel] SEROquel 05/17/2020 05: 00:00 AM EST 1.0 Tablet Oral active [facility]SMART ([facility]) Prazosin 1 MG Oral Capsule [Minipress] Minipress 05/17/2020 05:0 0:00 AM EST 1.0 Capsule Oral active [facility]SMART ([facility]) Clonidine Hydrochloride 0.1 MG Oral Tablet cloNIDine HCl 05/17/2020 05:00:00 AM EST 1.0 Tablet Oral active NETSMA RT ([facility]) Hydroxyzine Pamoate 25 MG Oral Capsule [Vistaril] Vistaril 05/17/2020 05:00:00 AM EST 1.0 Capsule Oral active NETSM ART ([facility]) 24 HR Bupropion Hydrochloride 150 MG Extended Release Oral Tablet [Wellbutrin] Wellbutrin XL 05/17/2020 05:00:00 AM EST 1.0 Tablet Oral acti ve NETSMART ([facility]) Trazodone Hydrochloride 100 MG Oral Tablet traZODone hydroch loride 05/17/2020 05:00:00 AM EST 1.0 Tablet Oral active NETSMART ([facility]) quetiapine 100 MG Oral Tablet QUEtiapine (SEROQUEL) 10 0 MG tablet QUEtiapine (SEROQUEL) 100 MG tablet 05/04/2020 12:00:00 AM EST 100 mg Oral aborted Medication refill Take 1 tablet (100 mg total) by mouth 2 (two) times a day [facility] Medication refill doxycycline hyclate 100 MG Oral Tablet doxycycline ( BRA-TABS) 100 MG tablet doxycycline (VIBRA-TABS) 100 MG tablet 05/04/2020 12:00:00 AM EST 1 00 mg Oral active Lymphadenitis Take 1 tablet (100 mg total) by mouth 2 (two) times a day for 10 days [facility] Lymphadenitis Buprenorphine 4 MG / Naloxone 1 MG Oral Strip Buprenorphine- Naloxone 05/03/2020 05:00:00 AM EST 1.0 Film Sublingual active NETSMART ([employer]) quetiapine 25 MG Oral Tablet QUEtiapine (SEROQUEL) 25 MG tablet QUEtiapine (SEROQUEL) 25 MG tablet 04/26/2020 12:00:00 AM EST active 2 (two) times a day [facility] Buprenorphine 4 MG / Naloxone 1 MG Oral Strip Buprenorphine- Naloxone 04/25/2020 05:00:00 AM EST 1.0 Film Sublingual active NETSMART ([employer]) Esomeprazole 20 MG Delayed Release Oral Capsule SM ESOMEPRAZOLE MAGNESIUM 20 MG capsule SM ESOMEPRAZOLE MAGNESIUM 20 MG capsule 04/25/2020 12:00:[address] 20 mg Oral aborted GERD without esophagitis Take 1 capsule (20 mg total) by mouth daily [facility] GERD without esophagitis Multiple Vitamins-Iron (MULTIVITAMIN WITH IRON) TABS 0904-05 31-60 04/25/2020 12:00:00 AM EST 1 {tbl} Oral aborted Polysubstance ab use Take 1 tablet by mouth daily [facility] Polysubstance abuse 30 ACTUAT umeclidinium 0.0625 MG/ACTUAT / vilanterol 0.025 MG/ACTUAT Dry Powder Inhaler [Anoro] ANORO ELLIPTA 62.5-25 MCG/INH inhaler ANORO ELLIPTA 62.5-25 MCG/INH inhaler 04/25/2020 12:00:00 AM EST 1 {puff} Inhalation aborted Moderate persistent asthma without complication Inhale 1 puf f daily [facility] Moderate persistent asthma without compl ication sennosides, SHELTER 8.6 MG Oral Tablet senna (SENOKOT) 8.6 MG TABS senna (SENOKOT) 8.6 MG TABS 04/25/2020 12:00:00 AM EST 8.6 mg Oral a borted Irritable bowel syndrome with constipation Take 1 tablet (8.6 mg tota l) by mouth daily For treatment of constipation, hold for loose stools [facility] Irritable bowel syndrome with constipati on POLYETHYLENE GLYCOL 3350 142 MG/ML Oral Solution polyethylene glycol (GLYCOLAX) 17 GM/SCOOP powder polyethylene glycol (GLYCOLAX) 17 GM/SCOOP powder 04/10 12:00:00 AM EST 17 g Oral active Irri table bowel syndrome with constipation Take 17 g by mouth daily 1 capful= 17 g [facility] Irritable bowel syndrome with constipati on montelukast 10 MG Oral Tablet montelukast (SINGULAIR) 10 MG tablet montelukast (SINGULAIR) 10 MG tablet 04/25/2020 12:00:00 AM EST 10 mg Oral active Moderate persistent asthma without complication Take 1 tablet (10 mg total) by mouth daily [facility] Moderate persistent asthma without compl ication albuterol (PROVENTIL HFA;VENTOLIN HFA) 108 (90 Base) M CG/ACT inhaler [id number] 04/25/2020 12:00:00 AM EST 2 {puff} Inhalation aborted Moderate persistent asthma without complication Inhale 2 puffs every 4 (four) hours as needed for wheezing [facility] Moderate persistent asthma without compl ication calcium polycarbophil 625 MG Oral Tablet polycarbophil (FIBER-LAX) 625 MG tablet polycarbophil (FIBER-LAX) 625 MG tablet 04/25/2020 12:00:00 AM EST 625 mg Oral active Irritable bowel syndrome with consti pation Take 1 tablet (625 mg total) by mouth daily [facility] Irritable bowel syndrome with constipati on Buprenorphine 4 MG / Naloxone 1 MG Oral Strip Buprenorphine- Naloxone 04/19/2020 05:00:00 AM EST 1.0 Film Sublingual active NETSMART ([employer]) Desmopressin Acetate 0.01 MG/ACTUAT [place] [DDAVP] DDAV P 04/12/2020 05:00:00 AM EST 2.0 [place] Nasal active [facility]SMART ([employer]) ropinirole 0.25 MG Oral Tablet rOPINIRole HCl 04/12/2020 05:00:00 A M EST 1.0 Tablet Oral active [facility]ART ([employer]) Clonidine Hydrochloride 0.1 MG Oral Tablet cloNIDine HCl 04/12/2020 05:00:00 AM EST 1.0 Tablet Oral active NETSMA RT ([facility] [employer]) Ibuprofen 600 MG Oral Tablet Ibuprofen 04/12/2020 05:00:00 AM EST 1.0 Tablet Oral active NETSMART ( [facility]) Esomeprazole 20 MG Delayed Release Oral Capsule Esomeprazole Magnesium 04/12/2020 05:00:00 AM EST 1.0 Capsule Oral active [facility]SMART ([facility] [employer]) Buprenorphine 8 MG / Naloxone 2 MG Oral Strip [Suboxone] Sub oxone 04/12/2020 05:00:00 AM EST 1.0 Film Sublingual active [facility]SMART ([facility] [employer]) Prazosin 5 MG Oral Capsule [Minipress] Minipress 04/12/2020 05:0 0:00 AM EST 1.0 Capsule Oral active [facility]SMART ([facility]) Albuterol Sulfate HFA 04/12/2020 05:00:00 AM EST 2.0 Puf f Inhalation active [facility]SMART ([facility]) lamotrigine 25 MG Oral Tablet lamoTRIgine 04/12/2020 05:00:[address] 2.0 Tablet Oral active [facility]SMART ([facility]) Trazodone Hydrochloride 100 MG Oral Tablet traZODone hydroch loride 04/12/2020 05:00:00 AM EST 1.0 Tablet Oral active [facility]SMART ([facility] [employer]) 7 ACTUAT umeclidinium 0.0625 MG/ACTUAT / vilanterol 0.025 MG/ACTUAT Dry Powder Inhaler [Anoro] Anoro Ellipta 04/12/2020 05:00:00 AM EST 1.0 [place] I nhalation active [facility]SMART ([facility]) quetiapine 25 MG Oral Tablet [Seroquel] SEROquel 04/12/2020 05: 00:00 AM EST 1.0 Tablet Oral active [facility]SMART ([facility] [employer]) Hydroxyzine Pamoate 25 MG Oral Capsule [Vistaril] Vistaril 04/12/2020 05:00:00 AM EST 1.0 Capsule Oral active NETSM ART ([facility] [employer]) 24 HR Bupropion Hydrochloride 150 MG Extended Release Oral Tablet [Wellbutrin] Wellbutrin XL 04/12/2020 05:00:00 AM EST 1.0 Tablet Oral acti ve [facility] ([facility] montelukast 10 MG Oral Tablet [Singulair] Singulair 2019 05:00:00 AM EST 1.0 Tablet Oral active NETSM ART ([facility]) Narcan 04/12/2020 05:00:00 AM EST 1.0 [place] Nasal activ e [facility]SMART ([facility]) topiramate 25 MG Oral Capsule [Topamax] Topamax 04/12/2020 05: 00:00 AM EST 1.0 Capsule Oral active [facility]SMART ([facility]) Prazosin 1 MG Oral Capsule [Minipress] Minipress 04/12/2020 05:0 0:00 AM EST 1.0 Capsule Oral active [facility]SMART ([facility]) Desmopressin Acetate 0.01 MG/ACTUAT [place] desmopressin (DDAVP NASAL) 0.01 % solution desmopressin (DDAVP NASAL) 0.01 % solution 04/12/2020 12:00:00 AM EST aborted [facility] olanzapine 10 MG Oral Tablet [Zyprexa] ZyPREXA 04/07/2020 04:0 0:00 AM EDT 1.0 Tablet Oral active [facility]SMART ([facility]) Buprenorphine 8 MG / Naloxone 2 MG Oral Strip [Suboxone] Sub oxone 04/07/2020 04:00:00 AM EDT 1.0 Film Sublingual active [facility]SMART ([facility]) Buprenorphine 8 MG / Naloxone 2 MG Oral Strip [Suboxone] Sub oxone 04/05/2020 04:00:00 AM EDT 1.0 Film Sublingual active NETSMART ([facility]) montelukast 10 MG Oral Tablet [Singulair] Singulair 2019 04:00:00 AM EDT 1.0 Tablet Oral active NETSM ART ([facility]) Esomeprazole 20 MG Delayed Release Oral Capsule SM ESOMEPRAZOLE MAGNESIUM 20 MG capsule SM ESOMEPRAZOLE MAGNESIUM 20 MG capsule 04/04/2020 12:00:00 AM E DT 20 mg Oral aborted Take 20 mg by mouth [facility] Clonidine Hydrochloride 0.1 MG Oral Tablet cloNIDine ( CATAPRES) 0.1 MG tablet cloNIDine (CATAPRES) 0.1 MG tablet 04/03/2020 12:00:00 AM EDT 0.1 mg Oral active Take 0.1 mg by mouth [facility] benztropine mesylate 1 MG Oral Tablet benztropine (COG ENTIN) 1 MG tablet benztropine (COGENTIN) 1 MG tablet 04/03/2020 12:00:00 AM EDT active TAKE ONE TABLET BY MOUTH THREE TIMES A D AY NEEDED FOR EPS [facility] Ibuprofen 600 MG Oral Tablet ibuprofen (ADVIL,MOTRIN) 600 MG tablet ibuprofen (ADVIL,MOTRIN) 600 MG tablet 04/03/2020 12:00:00 AM EDT active TAKE ONE TABLET BY MOUTH THREE TIMES A DAY NEEDED FOR PAIN [facility] ropinirole 0.25 MG Oral Tablet rOPINIRole (REQUIP) 0.2 5 MG tablet rOPINIRole (REQUIP) 0.25 MG tablet 04/03/2020 12:00:00 AM EDT aborted TAKE ONE TABLET BY MOUTH THREE TIMES A DAY NEEDED FOR RESTLESS LEGS [facility] Guanfacine 1 MG Oral Tablet guanFACINE (TENEX) 1 MG ta blet guanFACINE (TENEX) 1 MG tablet 03/29/2020 12:00:00 AM EDT aborted [facility] 30 ACTUAT umeclidinium 0.0625 MG/ACTUAT / vilanterol 0.025 MG/ACTUAT Dry Powder Inhaler [Anoro] ANORO ELLIPTA 62.5-25 MCG/INH inhaler ANORO ELLIPTA 62.5-25 MCG/INH inhaler 03/21/2020 12:00:00 AM EDT aborted [facility] 12 HR Bupropion Hydrochloride 150 MG Ext ended Release Oral Tablet buPROPion (WELLBUTRIN SR) 150 MG 12 hr tablet buPROPion (WELLBUTRIN SR) 150 MG 12 hr tablet 03/10/2020 12:00:00 AM EDT aborted [facility] Buprenorphine 8 MG / Naloxone 2 MG Oral Strip [Suboxone] Sub oxone 02/03/2020 04:00:00 AM EDT 1.0 Film Sublingual active NETSMART ([employer]) Acetaminophen 325 MG Oral Tablet acetaminophen (TYLENO L) 325 MG tablet acetaminophen (TYLENOL) 325 MG tablet 12/16/2019 12:00:00 AM EDT 97 5 mg Oral aborted Take 3 tablets (975 mg total) by mouth every 6 (six) hours as needed for pain [facility] Albuterol 0.833 MG/ML / Ipratropium Brom bea 0.167 MG/ML Inhalant Solution ipratropium-albuterol (DUO-NEB) 0.5-2.5 mg/mL nebulizer ipratropium-albuterol (DUO-NEB) 0.5-2.5 mg/mL nebulizer 12/16/2019 12:00:00 AM EDT 3 mL aborted Take 3 mL by nebulization every 6 (six) hours [facility] Albuterol 0.83 MG/ML Inhalant Solution a lbuterol (PROVENTIL) (2.5 MG/3ML) 0.083% nebulizer solution albuterol (PROVENTIL) (2.5 MG/3ML) 0.083 % nebulizer solution 12/16/2019 12:00:00 AM EDT 2.5 mg aborted Take 3 mL (2.5 mg total) by nebulization every 4 (four) hours as needed for shortness of breath [facility] albuterol (PROVENTIL HFA;VENTOLIN HFA) 108 (90 Base) M CG/ACT inhaler [id number] 12/16/2019 12:00:00 AM EDT 2 {puff} Inhalation aborted Inhale 2 puffs every 4 (four) hours as needed for wheezing [facility] Buprenorphine 5.7 MG / Naloxone 1.4 MG Sublingual Tablet [Zu bsolv] Zubsolv 11/04/2019 04:00:00 AM EDT 1.0 Tablet Sublingual active NETSMART ([employer]) Trazodone Hydrochloride 100 MG Oral Tablet traZODone hydroch loride 11/04/2019 04:00:00 AM EDT 1.0 Tablet Oral active [facility]SMART ([employer]) montelukast 10 MG Oral Tablet montelukast (SINGULAIR) 10 MG tablet montelukast (SINGULAIR) 10 MG tablet 10/22/2019 12:00:00 AM EDT 10 mg Oral aborted Moderate asthma, unspecified whether complicated, unspecified whether persistent Take 1 tablet (10 mg total) by mouth mimi ly [facility] Moderate asthma, unspecified whether com plicated, [...] 1 tablet by mouth daily with breakfast [facility] Irritable bowel syndrome with constipati on calcium polycarbophil 625 MG Oral Tablet polycarbophil (FIBER-LAX) 625 MG tablet polycarbophil (FIBER-LAX) 625 MG tablet 10/22/2019 12:00:00 AM EDT 625 mg Oral aborted Irritable bowel syndrome with consti pation Take 1 tablet (625 mg total) by mouth daily [facility] Irritable bowel syndrome with constipati on 60 ACTUAT Fluticasone propionate 0.25 MG /ACTUAT / salmeterol 0.05 MG/ACTUAT Dry Powder Inhaler fluticasone-salmeterol (ADVAIR) 250-50 MCG/DOSE DISKUS fluticasone-salmeterol (ADVAIR) 250-50 MCG/DOSE DISKUS 10/22/2019 12:00:00 AM EDT 1 {puff} Inhalation aborted Moderate asthma, unspecified whether complicated, unspecified whether persistent Inhale 1 puff 2 (two) times a day [facility] Moderate asthma, unspecified whether com plicated, unspecified whether persistent quetiapine 100 MG Oral Tablet QUEtiapine (SEROQUEL) 10 0 MG tablet QUEtiapine (SEROQUEL) 100 MG tablet 10/14/2019 12:00:00 AM EDT 100 mg Oral aborted Take 100 mg by mouth 2 (two) times a day [facility] Trazodone Hydrochloride 100 MG Oral Tablet traZODone ( DESYREL) 100 MG tablet traZODone (DESYREL) 100 MG tablet 10/14/2019 12:00:00 AM EDT 100 mg Oral aborted Take 100 mg by mouth nightly [facility] with 50 mg (total dose : 150 mg) [facility] olanzapine 10 MG Oral Tablet OLANZapine (ZYPREXA) 10 M G tablet OLANZapine (ZYPREXA) 10 MG tablet 10 mg Oral aborted Take 10 mg by mouth nightly [facility] ferrous sulfate 325 MG Oral Tablet ferrous sulfate 325 (65 FE) MG tablet ferrous sulfate 325 (65 FE) MG tablet 325 mg Oral aborted Take 325 mg by mouth daily [facility] Trazodone Hydrochloride 50 MG Oral Tablet traZODone (D ESYREL) 50 MG tablet traZODone (DESYREL) 50 MG tablet 50 mg Oral abort ed Take 50 mg by mouth nightly Takes with 100 mg (total dose : 150 mg) [facility] Insurance Providers Payer name Policy type / Coverage type Policy ID Covered democrat ID Covered democrat's relationship to lay Policy Lay Plan Information SELF PAY NOT NEEDED Patient is Insured NOT NEEDED [facility] PCP [id number] Patient is Ins ured [id number] [facility] PCP 7 Patient is Insur ed 7 [facility] I [id number] Self [id number] [facility] [id number] SP [id number] [facility] [id number] SP [id number] MEDICAID M [id number] Self [id number] [facility] I [id number] Self [id number] [facility] [id number] SP [id number] [facility] [id number] SP [id number] [facility] COMMUNITY PLAN [id number] SP [id number] [facility] Comm Plan Medicaid F [id number] SELF [id number] [facility] COMMUNITY PLAN [id number] SP [id number] MEDICAID [id number] Dian [id number] MEDICAID [id number] [id number] [facility] COMMUNITY PLAN [id number] SP [id number] MEDICAID [place] [id number] SP BT [id number] [id number] MEDICAID [id number] [id number] 2 [id number] BONG [id number] SP [id number] BONG [id number] SP [id number] BONG MEDICAID [id number] Dian 7 [id number] BONG I [id number] Self [id number] [employer] Commercial 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 include:1. Cough2. Moderate persistent asthma without complication3. Polysubstance abuse4. Nicotine dependence with nicotine-induced disorder, unspecified nicotineproduct type5. Irritable bowel syndrome with constipation6. GERD without esophagitis7. Dysfunctional uterine bleeding s/p ablation8. Paroxysmal atrial fibrillation9. Restless leg [id number]. Von Willebrand ndgrmfe29. Immunization refusedI have discussed the case with the care-rendering provider Marky Medley MD. Ireviewed and agree with the findings, assessment and plan as documented.Niesha Guevara DO Name Value Range Interpretation Code Description Data Judith rce(s) Supporting Document(s) ID Date Data Source [id number] 06/25/2020 11:48:27 PM EST [facility] NT INFORMATIONPatient MRN Name Date of Age Gend*PT [id number] Denisha Harding 1990 30 years F OPPT Location Admission Date/Time Visit ID Attending Provider --- --- --- Mokoie Schroeder MD([id number]) EPI ID CSN Admitting Provider [id number] ---Subjective: Denisha Harding is a female of 30 years who presents today for various chronic andacute [facility], back at homePalpitation and dizziness, wakes her up, intermittent, q3d, started mon 06/13Psych wants sleep study 2/2 worsening nightmaresStill seeing counselor and [facility] started again despite s/p ablation 2017Desmopressin [...] heroinFo llows with Carri Hale (prescribing) at [facility] ([phone])Assessment & Plan:Clean x4mo, continues to follow with [facility] for counseling/prescribingOrders:- Multiple Vitamins-Iron (MULTIVITAMIN [...] have recurred despite prior ablation, refer to HEALTHCARE BUSINESS ANALYST for possible repeatOrders:- Ambulatory referral to OB/GYNParoxysmal [...] rce(s) Supporting Document(s) ID Date Data Source [id number] 06/23/2020 11:50:47 AM EST [facility] Name Value Range Interpretation Code Description Data Judith rce(s) Supporting Document(s) RESPIRATORY SOURCE [facility] Nasopharyngeal INFLUENZA A BY PCR [facility] Not Detected INFLUENZA B BY PCR [facility] Not Detected RSV BY PCR [facility] Not Detected INTERPRETIVE INFORMATION: R espiratory Virus Mini Panel by PCR A negative result does not rule out the presence of PCR inhibitors in the patient specimen or assay specific nucleic acid in concentrations below the level of detection by the assay. Performed by [facility], [address] [place] [id number] [email or web address], Sylvia Mcmillan MD, Lab. Director ID Date Data Source [id number] 06/23/2020 08:24:03 AM EST [facility] Name Value Range Interpretation Code Description Data Judith rce(s) Supporting Document(s) SARS COV2 SOURCE [facility] SARS COV 2 BY PCR [facility] Not Detected INTERPRETIVE INFORMATION: S ARS-CoV-2 [...] In compliance with this authorization, please visit [email or web address] for more information and to access the [...] collection, transport, storage, and handling. Performed by [facility], [address] [place] [id number] [email or web address], Sylvia Mcmillan MD, Lab. Director ID Date Data Source [id number] 05/30/2020 05:00:00 AM EST [facility] ([facility]) Name Value Range Interpretation Code Description Data Judith rce(s) Supporting Document(s) pH 6.9NORMALNORMAL [facility] ([facility]) Creatinine 162.1NORMALNORMAL NE [facility] ([facility]) Amphetamines 352.00NegativeNegative [facility] ([facility]) Oxidants -16.00NegativeNegative [facility] ([facility]) Validity Result VALIDVALIDVALID [facility] ([facility]) Benzodiazepines 44.00NegativeNegative [facility] ([facility]) Buprenorphine 122.40PRESUMPTIVE POSITIVEPRESUMPTIVE POSITIVE [facility] ([facility]) Barbiturates 9.00NegativeNegative [facility] ([facility]) Cotinine 1193.00PRESUMPTIVE POSITIVEPRESUMPTIVE POSITIVE [facility] ([facility]) Cocaine Metabolites -9.00NegativeNegative [facility] ([facility]) EDDP -58.00NegativeNegative [facility] ([facility]) Ethyl Alcohol 16.00NegativeNegative [facility] ([facility]) Ethyl Glucuronide 408.00NegativeNegative [facility] ([facility]) Heroin (6-AM) 3.00NegativeNegative [facility] ([facility]) Methadone -13.00NegativeNegative [facility] ([facility]) Fentanyl 1.700PRESUMPTIVE POSITIVEPRESUMPTIVE POSITIVE [facility] ([facility]) Synthetic Opiates -23.00NegativeNegative [facility] ([facility]) Opiates -16.00NegativeNegative [facility]) Phencyclidine 22.10NegativeNegative [facility] ([facility]) Tramadol 34.00NegativeNegative [facility]) Cannabinoids -14.10NegativeNegative [facility] ([facility]) Tricyclics 688.00PRESUMPTIVE POSITIVEPRESUMPTIVE POSITIVE [facility] ([facility]) Ecstasy (MDMA) 82.00NegativeNegative [facility]) Norbuprenorphine 494.990Positive - ConsistentPOSITIVE [facility] ([facility]) Buprenorphine 250Positive - ConsistentPOSITIVE> [facility] Naloxone 647.270Positive - InconsistentPOSITIVE [facility] ([facility]) Carfentanil 0.000NegativeNegative [facility] ([facility]) Norfentanyl 0.280NegativeNegative [facility] ([facility]) Fentanyl 0.060NegativeNegative [facility] ([facility]) Norcarfentanil 0.120NegativeNegative [facility] ([facility]) Sufentanil 0.080NegativeNegative [facility] ([facility]) Desmethyldoxepin 0.000NegativeNegative [facility] ([facility]) Imipramine 5.420NegativeNegative [facility] ([facility]) Doxepin 4.360NegativeNegative [facility] ([facility]) Amitriptyline 0.000NegativeNegative [facility] ([facility]) Nortriptyline 0.360NegativeNegative [facility] ([facility]) Aripiprazole 0.000NegativeNegative [facility] ([facility]) Clomipramine 10.470NegativeNegative [facility] ([facility]) Desipramine 0.000NegativeNegative [facility] ([facility]) Chlorpromazine 0.000NegativeNegative [facility] ([facility]) Clozapine 0.000NegativeNegative [facility] ([facility]) Lurasidone 0.230NegativeNegative [facility] ([facility]) Haloperidol 0.000NegativeNegative [facility] ([facility]) Fluphenazine 0.070NegativeNegative [facility] ([facility]) Quetiapine 50Positive - ConsistentPOSITIVE> [facility] ([facility]) Olanzapine 0.120NegativeNegative [facility] ([facility]) Promethazine 0.000NegativeNegative [facility] ([facility]) Risperidone 0.000NegativeNegative [facility] ([facility]) Trifluoperazine 0.250NegativeNegative [facility] ([facility]) Ziprasidone 0.000NegativeNegative [facility] ([facility]) Bupropion 50Positive - ConsistentPOSITIVE> [facility] ([facility]) Hydroxybupropion 50Positive - ConsistentPOSITIVE> [facility] ([facility]) mCPP 50Positive - ConsistentPOSITIVE> [facility] ([facility]) Trazodone 50Positive - ConsistentPOSITIVE> [facility] ([facility]) ID Date Data Source [id number] 06/04/2020 02:01:45 PM EST [facility] NOTE: Presumptive [...] Result VALIDVALIDVALID [facility] ID Date Data Source [id number] 06/04/2020 02:01:45 PM EST [facility] NOTE: Presumptive [...] 500.00 ng/mL [facility] ID Date Data Source [id number] 06/04/2020 02:01:45 PM EST [facility] NOTE: Presumptive Positive indicates a n onnegative test result by immunoassay screen. It is a preliminary result. [facility] recommends that a Presumptive Positive result be confirmed by an additional, more specific test such as mass spectrometry Name Value Range Interpretation Code Description Data Judith [facility](s) Supporting Document(s) Buprenorphine 250Positive - ConsistentPOSITIVE> ng/mL 5.00 n g/mL [facility] Norbuprenorphine 494.990Positive - ConsistentPOSITI VE ng/mL 10.00 ng/mL [facility] Naloxone 647.270Positive - InconsistentPOSITIVE ng/mL 25.00 ng/mL Abnormal (applies to non-numeric results) [facility] ID Date Data Source [id number] 06/04/2020 02:01:46 PM EST [facility] NOTE: Presumptive Positive indicates a n onnegative test result by immunoassay screen. It is a preliminary result. [facility] recommends that a Presumptive Positive result be confirmed by an additional, more specific test such as mass spectrometry Name Value Range Interpretation Code Description Data Judith [facility](s) Supporting Document(s) Norfentanyl 0.280NegativeNegative ng/mL 1.00 ng/mL [facility] Fentanyl 0.060NegativeNegative ng/mL 1.00 ng/mL [facility] Carfentanil 0.000NegativeNegative ng/mL 1.00 ng/mL [facility] Norcarfentanil 0.120NegativeNegative ng/mL 1.00 ng/mL [facility] Sufentanil 0.080NegativeNegative ng/mL 1.00 ng/mL [facility] ID Date Data Source [id number] 06/04/2020 02:01:46 PM EST [facility] NOTE: Presumptive Positive indicates a n onnegative test result by immunoassay screen. It is a preliminary result. [facility] recommends that a Presumptive Positive result be confirmed by an additional, more specific test such as mass spectrometry Name Value Range Interpretation Code Description Data [facility](s) Supporting Document(s) Desmethyldoxepin 0.000NegativeNegative ng/mL 50.00 ng/mL [facility] Doxepin 4.360NegativeNegative ng/mL 50.00 ng/mL [facility] Imipramine 5.420NegativeNegative ng/mL 50.00 ng/mL [facility] Nortriptyline 0.360NegativeNegative ng/mL 50.00 ng/mL [facility] Amitriptyline 0.000NegativeNegative ng/mL 50.00 ng/mL [facility] Clomipramine 10.470NegativeNegative ng/mL 50.00 ng/mL [facility] Desipramine 0.000NegativeNegative ng/mL 50.00 ng/mL [facility] ID Date Data Source [id number] 06/04/2020 02:01:45 PM EST [facility] NOTE: Presumptive [...] 10.00 ng/mL [facility] ID Date Data Source [id number] 06/04/2020 02:01:46 PM EST [facility] NOTE: Presumptive [...] 1.00 ng/mL [facility] ID Date Data Source [id number] 06/04/2020 02:01:46 PM EST [facility] NOTE: Presumptive Positive indicates a n onnegative test result by immunoassay screen. It is a preliminary result. [facility] recommends that a Presumptive Positive result be confirmed by an additional, more specific test such as mass spectrometry Name Value Range Interpretation Code Description [facility] Document(s) Trazodone 50Positive - ConsistentPOSITIVE> ng/mL 1.00 ng/mL [facility] mCPP 50Positive - ConsistentPOSITIVE> ng/mL 1.00 ng/mL [facility] ID Date Data Source [id number] 05/17/2020 05:00:00 AM EST [facility] ([facility]) Name Value Range Interpretation Code Description Data Judith rce(s) Supporting Document(s) Creatinine 173.1NORMALNORMAL NE [facility] ([facility]) pH 6.0NORMALNORMAL [facility] ([facility]) Validity Result VALIDVALIDVALID [facility] ([facility]) Oxidants -17.00NegativeNegative [facility] ([facility]) Amphetamines 449.00NegativeNegative [facility] ([facility]) Barbiturates 41.00NegativeNegative [facility] ([facility]) Benzodiazepines 14.00NegativeNegative [facility] ([facility]) Cocaine Metabolites -16.00NegativeNegative [facility] ([facility]) Buprenorphine 121.90PRESUMPTIVE POSITIVEPRESUMPTIVE POSITIVE NETSMART ([facility]) EDDP -145.00NegativeNegative NETSMART ([facility]) Ethyl Glucuronide 42.00NegativeNegative NETSMART ([facility]) Cotinine 988.00PRESUMPTIVE POSITIVEPRESUMPTIVE POSITIVE [facility]) Fentanyl 0.500NegativeNegative NETSMART ([facility]) Ethyl Alcohol -3.00NegativeNegative NETSMART ([facility]) Methadone -15.00NegativeNegative NETSMART ([facility]) Opiates -36.00NegativeNegative NETSMART ([facility]) Heroin (6-AM) 2.80NegativeNegative NETSMART ([facility]) Synthetic Opiates -17.00NegativeNegative NETSMART ([facility]) Phencyclidine 23.00NegativeNegative NETSMART ([facility]) Tramadol 37.00NegativeNegative NETSMART ([facility]) Tricyclics 594.00PRESUMPTIVE POSITIVEPRESUMPTIVE POSITIVE NETSMART ([facility]) Cannabinoids -16.40NegativeNegative NETSMART ([facility]) Ecstasy (MDMA) 79.00NegativeNegative NETSMART ([facility]) Buprenorphine 250Positive - ConsistentPOSITIVE> NETSMART ([facility]) Desmethyldoxepin 0.000NegativeNegative NETSMART ([facility]) Norbuprenorphine 500Positive - ConsistentPOSITIVE> NETSMART ([facility]) Naloxone 553.950Positive - ConsistentPOSITIVE NETSMART ([facility]) Imipramine 1.960NegativeNegative NETSMART ([facility]) Doxepin 4.240NegativeNegative NETSMART ([facility]) Clomipramine 37.370NegativeNegative NETSMART ([facility]) Amitriptyline 2.100NegativeNegative NETSMART ([facility]) Nortriptyline 3.020NegativeNegative NETSMART ([facility]) Desipramine 0.000NegativeNegative NETSMART ([facility]) ID Date Data Source [id number] 05/19/2020 05:30:36 PM EST [facility] NOTE: Presumptive Positive indicates a n onnegative test result by immunoassay screen. It is a preliminary result. [facility] recommends that a Presumptive Positive result be confirmed by an additional, more specific test such as mass spectrometry Name Value Range Interpretation Code Description Data Judith rce(s) Supporting Document(s) Creatinine 173.1NORMALNORMAL mg/dL 20.0-300.0 mg/dL [facility] pH 6.0NORMALNORMAL 3.5-9.2 [facility] Oxidants -17.00NegativeNegative mcg/mL 200.00 mcg/mL [facility] Validity Result VALIDVALIDVALID [facility] ID Date Data Source [id number] 05/19/2020 05:30:36 PM EST [facility] NOTE: Presumptive [...] 500.00 ng/mL [facility] ID Date Data Source [id number] 05/19/2020 05:30:36 PM EST [facility] NOTE: Presumptive [...] 25.00 ng/mL [facility] ID Date Data Source [id number] 05/19/2020 05:30:36 PM EST [facility] NOTE: Presumptive [...] 50.00 ng/mL [facility] ID Date Data Source [id number] 05/11/2020 05:30:08 PM EST [facility] NT INFORMATIONPatient MRN Name Date of Age Gend*PT [id number] Denisha Harding 1990 30 years F OPPT Location Admission Date/Time Visit ID Attending Provider --- --- --- Ga Carpio MD([id number]) EPI ID CSN Admitting Provider [id number] ---Denisha Harding was seen by Mariama Lorenz MD.The problems addressed include:1. Lymphadenitis2. Medication refillI have discussed the case with the care-rendering provider Mariama Lorenz MD. Ireviewed and agree with the findings, assessment and plan as documented.Ga Carpio MD Name Value Range Interpretation Code Description Data Judith rce(s) Supporting Document(s) ID Date Data Source [id number] 05/11/2020 10:18:38 AM EST [facility] NT INFORMATIONPatient MRN Name Date of Age Gend*PT [id number] Denisha Harding 1990 30 years F OPPT Location Admission Date/Time Visit ID Attending Provider --- --- --- Ga Carpio MD([id number]) EPI ID CSN Admitting Provider [id number] ---Assessment/Plan:Denisha Harding is a 30 years female [...] rce(s) Supporting Document(s) ID Date Data Source [id number] 05/07/2020 01:00[facility]FORMATION[facility]N Name Date of Age Gend*PT [id number] RoberthDenisha 1990 30 years F OPPT Location Admission Date/Time Visit ID Attending Provider --- --- --- Ron Tejada MD([id number]) EPI ID CSN Admitting Provider [id number] ---Denisha Harding was seen by Marky Medley [...] Hospital(s) Supporting Document(s) ID Date Data Source [id number] 05/06/2020 05:49:13 PM EST [facility] NOTE: Presumptive [...] Result VALIDVALIDVALID [facility] ID Date Data Source [id number] 05/06/2020 05:49:14 PM EST [facility] NOTE: Presumptive [...] 500.00 ng/mL [facility] ID Date Data Source [id number] 05/06/2020 05:49:14 PM EST [facility] NOTE: Presumptive [...] 25.00 ng/mL [facility] ID Date Data Source [id number] 05/06/2020 05:49:14 PM EST [facility] NOTE: Presumptive [...] Sufentanil 0.100NegativeNegative ng/mL 1.00 ng/mL [facility] ID Data Source [id number] 05/06/2020 05:49:14 PM EST [facility] NOTE: Presumptive [...] 50.00 ng/mL [facility] ID Date Data Source [id number] 05/01/2020 09:08:47 PM EST [facility]IE NT INFORMATIONPatient MRN Name Date of Age Gend*PT [id number] Denisha Harding 1990 30 years F OPPT Location Admission Date/Time Visit ID Attending Provider --- --- --- Ron Tejada MD([id number]) EPI ID CSN Admitting Provider [id number] ---Subjective: Denisha Harding is a female of 30 years who presents today for follow-up mood,chronic conditionsHPIJust got out of rehab in [place] 04/08, doing well New resident smokes spike, triggeringQuit 02/11/2020SomnolentRecovery house on S sideThumb surgery 03/25 Nail biting infection, surgery, healingHelio counseling weeklyBilly through [facility]one 12mg divided 4mg TID [...] leonard, heroinFollows with Carri Hale (prescribing) at [facility] ([phone])Assessment & Plan:Got out of inpatient rehab in [place] 04/08/2020, doing wellHas been clean since 02/11/2020Currently [...] Hospital(s) Supporting Document(s) ID Date Data Source [id number] 04/23/2020 10:39:31 AM EST [facility] NOTE: Presumptive [...] Result VALIDVALIDVALID [facility] ID Date Data Source [id number] 04/23/2020 10:39:32 AM EST [facility] NOTE: Presumptive [...] 500.00 ng/mL [facility] ID Date Data Source [id number] 04/23/2020 10:39:34 AM EST [facility] NOTE: Presumptive Positive indicates a n onnegative test result by immunoassay screen. It is a preliminary result. [facility] recommends that a Presumptive Positive result be confirmed by an additional, more specific test such as mass spectrometry Name Value Range Interpretation Code Description Data Judith e(s) Supporting Document(s) Buprenorphine 127.840Positive - ConsistentPOSITIVE ng/mL 5 .00 ng/mL [facility] Norbuprenorphine 367.960Positive - ConsistentPOSITI VE ng/mL 10.00 ng/mL [facility] Naloxone 230.550Positive - ConsistentPOSITIVE ng/mL 25.00 ng/mL [facility] ID Date Data Source [id number] 04/23/2020 10:39:36 AM EST [facility] NOTE: Presumptive [...] 1.00 ng/mL [facility] ID Date Data Source [id number] 04/23/2020 10:39:35 AM EST [facility] NOTE: Presumptive [...] 50.00 ng/mL [facility] ID Date Data Source [id number] 04/23/2020 10:39:38 AM EST [facility] NOTE: Presumptive [...] results) [facility] x ID Date Data Source [id number] 04/12/2020 02:43:00 PM EST NETSMART ([facility]) Name Value Range Interpretation Code Description Data Judith rce(s) Supporting Document(s) Creatinine 30.8NORMALNORMAL NET SMART ([facility]) Oxidants -14.00NegativeNegative NETSMART ([facility]) pH 8.2NORMALNORMAL NETSM ART ([facility]) Barbiturates 0.00NegativeNegative [facility]SMART ([facility]) Validity Result VALIDVALIDVALID [facility]SMART ([facility]) Amphetamines 62.00NegativeNegative [facility]SMART ([facility]) Buprenorphine 43.40PRESUMPTIVE POSITIVEPRESUMPTIVE POSITIVE [facility] ([facility]) Benzodiazepines -3.00NegativeNegative NETSMART ([facility]) Cotinine 763.00PRESUMPTIVE POSITIVEPRESUMPTIVE POSITIVE [facility] ([facility]) EDDP -34.00NegativeNegative [facility]SM[facility] ([facility]) Cocaine Metabolites 7.00NegativeNegative [facility]SM[facility] ([facility]) Ethyl Glucuronide -12.00NegativeNegative [facility]SM[facility] ([facility]) Ethyl Alcohol 1.00NegativeNegative [facility] ([facility]) Fentanyl 0.300NegativeNegative [facility] Methadone -11.00NegativeNegative [facility]) Heroin (6-AM) 1.10NegativeNegative NETSMART ([facility]) Synthetic Opiates -16.00NegativeNegative [facility]SM[facility] ([facility]) Phencyclidine 11.70NegativeNegative [facility]SMART ([facility]) Opiates 0.00NegativeNegative [facility]SM[facility] ([facility]) Tramadol 14.00NegativeNegative [facility] ([facility]) Cannabinoids -5.40NegativeNegative [facility]SMART ([facility]) Tricyclics 456.00NegativeNegative [facility]SM[facility] ([facility]) Buprenorphine 28.240Positive - ConsistentPOSITIVE NETSMART ([facility]) Ecstasy (MDMA) 6.00NegativeNegative NETSMART ([facility]) Norbuprenorphine 75.050Positive - ConsistentPOSITIVE NETSMART ([facility]) Naloxone 33.950Positive - ConsistentPOSITIVE NETSMART ([facility]) ID Date Data Source [id number] 04/16/2020 02:42:04 PM EST [facility] NOTE: Presumptive [...] Result VALIDVALIDVALID [facility] ID Date Data Source [id number] 04/16/2020 02:42:05 PM EST [facility] NOTE: Presumptive [...] 500.00 ng/mL [facility] ID Date Data Source [id number] 04/16/2020 02:42:07 PM EST [facility] NOTE: Presumptive [...] n g/mL [facility] ID Date Data Source [id number] 04/06/2020 05:34:31 PM EDT [facility] NOTE: Presumptive Positive indicates a n onnegative test result by immunoassay screen. It is a preliminary result. [facility] recommends that a Presumptive Positive result be confirmed by an additional, more specific test such as mass spectrometry Name Value Range Interpretation Code Description Data Judith rce(s) Supporting Document(s) Creatinine 82.2NORMALNORMAL mg/dL 20.0-300.0 mg/dL [facility] pH 8.2NORMALNORMAL 3.5-9.2 [facility] Oxidants -14.00NegativeNegative mcg/mL 200.00 mcg/mL [facility] Validity Result VALIDVALIDVALID [facility] ID Date Data Source [id number] 04/06/2020 05:34:32 PM EDT [facility] NOTE: Presumptive Positive indicates a n onnegative test result by immunoassay screen. It is a preliminary result. [facility] recommends that a Presumptive Positive result be confirmed by an additional, more specific test such as mass spectrometry Name Value Range Interpretation Code Description [facility](s) Amphetamines 56.00NegativeNegative ng/mL 500.00 ng/mL [...] 500.00 ng/mL [facility] ID Date Data Source [id number] 04/06/2020 05:34:34 PM EDT [facility] NOTE: Presumptive [...] non-numeric results) [facility] ID Date Data Source [id number] 04/06/2020 05:34:35 PM EDT [facility] NOTE: Presumptive [...] 50.00 ng/mL [facility] ID Date Data Source [id number] 02/03/2020 04:00:00 AM EDT NETSMART ([facility]) Name Value Range Interpretation Code Description Data Judith rce(s) Supporting Document(s) Creatinine 204.1NORMALNORMAL NE TSMART ([facility]) pH 6.3NORMALNORMAL NETSM ART ([facility]) Oxidants -17.00NegativeNegative [facility]SMART ([facility]) Amphetamines 209.00NegativeNegative [facility]SMART ([facility]) Validity Result VALIDVALIDVALID NETSMART ([facility]) Barbiturates -15.00NegativeNegative [facility]SM[facility] ([facility]) Buprenorphine 0.80NegativeNegative [facility]SMART ([facility]) Benzodiazepines -31.00NegativeNegative [facility]SM[facility] ([facility]) Cocaine Metabolites 175.00NegativeNegative [facility]SM[facility] ([facility]) Cotinine 1671.00PRESUMPTIVE POSITIVEPRESUMPTIVE POSITIVE NETSMART ([facility]) Ethyl Glucuronide 26.00NegativeNegative [facility]SM[facility] ([facility]) EDDP -91.00NegativeNegative [facility]SM[facility] ([facility]) Ethyl Alcohol 7.00NegativeNegative [facility]) Fentanyl 0.100NegativeNegative [facility]) Heroin (6-AM) -1.30NegativeNegative [facility]SMART ([facility]) Opiates -32.00NegativeNegative [facility]SM[facility] ([facility]) Synthetic Opiates -13.00NegativeNegative [facility]) Methadone -37.00NegativeNegative [facility]SM[facility] ([facility]) Phencyclidine -4.90NegativeNegative [facility]SMART ([facility]) Cannabinoids 7.80NegativeNegative [facility]SMART ([facility]) Tricyclics 16.00NegativeNegative [facility]SM[facility] ([facility]) Ecstasy (MDMA) -1.00NegativeNegative [facility]SM[facility] ([facility]) Tramadol -18.00NegativeNegative [facility]SM[facility] ([facility]) Buprenorphine 0.000Negative - InconsistentNegative NETSMART ([facility]) Naloxone 0.000Negative - InconsistentNegative [facility]SMART ([facility]) Norbuprenorphine 0.620Negative - InconsistentNegative NETSMART ([facility]) ID Date Data Source [id number] 02/05/2020 12:00:00 AM EDT [facility] NOTE: Presumptive Positive indicates a n onnegative test result by immunoassay screen. It is a preliminary result. [facility] recommends that a Presumptive Positive result be confirmed by an additional, more specific test such as mass spectrometry Name Value Range Interpretation Code Description Data [facility] Supporting Document(s) Creatinine 204.1NORMALNORMAL mg/dL 20.0-300.0 mg/dL [facility] pH 6.3NORMALNORMAL 3.5-9.2 [facility] Oxidants -17.00NegativeNegative mcg/mL 200.00 mcg/mL [facility] Validity Result VALIDVALIDVALID [facility] ID Date Data Source [id number] 02/05/2020 12:00:00 AM EDT [facility] NOTE: Presumptive Positive indicates a n onnegative test result by immunoassay screen. It is a preliminary result. [facility] recommends that a Presumptive Positive result be confirmed by an additional, more specific test such as mass spectrometry Name Value Range Interpretation Code Description Data [facility](s) Supporting Document(s) Amphetamines 209.00NegativeNegative ng/mL 500.00 ng/mL [...] 500.00 ng/mL [facility] ID Date Data Source [id number] 02/05/2020 12:00:00 AM EDT [facility] NOTE: Presumptive [...] ng/mL Abnormal (applies to non-numeric results) [facility] Procedure Social History Code Duration Value Status Description Data Source(s ) Alcohol intake 01/05/2021 12:00:00 AM EDT Current non-d shanna of alcohol (finding) completed Current non-drinker of alcohol (finding) [facility] Alcohol intake 08/31/2020 12:00:00 AM EDT Current non-d shanna of alcohol (finding) completed Current non-drinker of alcohol (finding) [facility] Alcohol intake 08/30/2020 12:00:00 AM EDT No completed [facility] Cigarette pack-years 08/30/2020 12:00:00 AM EDT UNK completed [facility] Cigarettes smoked current (pack per day) - Reported 08/31/19 12:00:00 AM EDT UNK completed [facility] Smoking 08/30/2020 12:00:00 AM EDT Current every day smoker co mpleted Current every day smoker [facility] Alcohol intake 08/23/2020 12:00:00 AM EDT No completed [facility] Cigarette pack-years 08/23/2020 12:00:00 AM EDT UNK completed [facility] Cigarettes smoked current (pack per day) - Reported 08/24/19 12:00:00 AM EDT UNK completed [facility] Smoking 08/23/2020 12:00:00 AM EDT Current every day smoker co mpleted Current every day smoker [facility] Alcohol intake 08/21/2020 12:00:00 AM EST Current drinker of al cohol (finding) completed Current drinker of alcohol (finding) [facility] Tobacco use and exposure 08/21/2020 12:00:00 AM EST Never used co mpleted Never used [facility] Cigarette pack-years 08/21/2020 12:00:00 AM EST UNK completed [facility] Cigarettes smoked current (pack per day) - Reported 08/22/19 12:00:00 AM EST UNK completed [facility] Smoking 08/21/2020 12:00:00 AM EST Current every day smoker co mpleted Current every day smoker [facility] Alcohol intake 06/20/2020 12:00:00 AM EST No completed [facility] Cigarette pack-years 06/20/2020 12:00:00 AM EST UNK completed [facility] Cigarettes smoked current (pack per day) - Reported 06/20/19 12:00:00 AM EST UNK completed [facility] Smoking 06/20/2020 12:00:00 AM EST Current every day smoker co mpleted Current every day smoker [facility] Smoking 06/13/2020 12:00:00 PM EST Smokes tobacco daily (findi GoNabit) completed Current Every Day Smoker [facility]SM[facility] ([facility]) Alcohol intake 05/04/2020 12:00:00 AM EST No completed [facility] Cigarette pack-years 05/04/2020 12:00:00 AM EST UNK completed [facility] Cigarettes smoked current (pack per day) - Reported 05/04/20 12:00:00 AM EST UNK completed [facility] Smoking 05/04/2020 12:00:00 AM EST Current every day smoker co mpleted Current every day smoker [facility] Alcohol intake 05/01/2020 12:00:00 AM EST No completed [facility] Cigarette pack-years 05/01/2020 12:00:00 AM EST UNK completed [facility] Cigarettes smoked current (pack per day) - Reported 05/01/20 12:00:00 AM EST UNK completed [facility] Smoking 05/01/2020 12:00:00 AM EST Current every day smoker co mpleted Current every day smoker [facility] Vital Signs ID Date Data Source UNK Name Value Range Interpretation Code Description Data Source(s) Systolic blood pressure 106 mm[Hg] 106 mm[Hg] [facility] Diastolic blood pressure 68 mm[Hg] 68 mm[Hg] [facility] Heart rate 55 /min 55 /min [facility] Respiratory rate 18 /min 18 /min [facility] Oxygen saturation in Arterial blood by Pulse oximetry 98 % 98 % [facility] Body temperature 36.11 Xenia 36.11 Xenia [facility] Body temperature 36.2 XENIA 36.2 XENIA [facility] ([facility]) Respiratory rate 18.0 /MIN 18.0 /MIN NETSMART ([facility]) Heart rate 82.0 /MIN 82.0 /MIN [facility]SM[facility] ([facility]) Diastolic blood pressure 83.0 MM[HG] 83.0 MM[HG ] NETSMART ([facility]) Systolic blood pressure 125.0 MM[HG] 125.0 MM[H G] NETSMART ([facility]) Body temperature 97.1 [DEGF] 97.1 [DEGF] NETSMA RT ([facility]) Oxygen saturation in Arterial blood by Pulse oximetry 98.0 % 98.0 % [facility]SMART ([facility]) Systolic blood pressure 125 mm[Hg] 125 mm[Hg] [facility] Diastolic blood pressure 81 mm[Hg] 81 mm[Hg] [facility] Heart rate 63 /min 63 /min [facility] Respiratory rate 18 /min 18 /min [facility] Oxygen saturation in Arterial blood by Pulse oximetry 95 % 95 % [facility] Body temperature 36.83 Xenia 36.83 Xenia [facility] Body weight 108.863 kg 108.863 kg [facility] Body mass index (BMI) [Ratio] 51.94 kg/m2 51.94 kg/m2 [facility] Diastolic blood pressure 85.0 MM[HG] 85.0 MM[HG ] [facility]SMART ([facility]) Oxygen saturation in Arterial blood by Pulse oximetry 99.0 % 99.0 % [facility]SMART ([facility]) Systolic blood pressure 118.0 MM[HG] 118.0 MM[H G] [facility]SM[facility] ([facility] [employer]) Body weight 106.4 KG 106.4 KG [facility] ([facility]) Body temperature 37.1 XENIA 37.1 XENIA [facility]SMART ([facility] [employer]) Heart rate 52.0 /MIN 52.0 /MIN NETSMART ([facility]) Respiratory rate 16.0 /MIN 16.0 /MIN NETSMART ([facility] [employer]) Body mass index (BMI) [Ratio] 50.6 50.6 [facility]SM[facility] ([facility] [employer]) Body temperature 98.7 [DEGF] 98.7 [DEGF] NETSMA RT ([facility] [employer]) Body height 144.8 cm 144.8 cm [facility]SM[facility] ([facility]) Pain severity - 0-10 verbal numeric rating [Score] - Reported 0.0 S mckenzie 0.0 Scale [facility] ([facility]) Systolic blood pressure 131 mm[Hg] 131 mm[Hg] [facility] Diastolic blood pressure 83 mm[Hg] 83 mm[Hg] [facility] Heart rate 72 /min 72 /min [facility] Body temperature 35.17 Xenia 35.17 Xenia [facility] Respiratory rate 18 /min 18 /min [facility] Body height 144.8 cm 144.8 cm [facility] Body weight 105.688 kg 105.688 kg [facility] Body mass index (BMI) [Ratio] 50.42 kg/m2 50.42 kg/m2 [facility] Oxygen saturation in Arterial blood by Pulse oximetry 97 % 97 % [facility] Systolic blood pressure 95 mm[Hg] 95 mm[Hg] [facility] Diastolic blood pressure 60 mm[Hg] 60 mm[Hg] [facility] Heart rate 60 /min 60 /min [facility] Body temperature 36.78 Xenia 36.78 Xenia [facility] Respiratory rate 16 /min 16 /min [facility] Body weight 100.925 kg 100.925 kg [facility] Body mass index (BMI) [Ratio] 48.15 kg/m2 48.15 kg/m2 [facility] Oxygen saturation in Arterial blood by Pulse oximetry 97 % 97 % [facility] Systolic blood pressure 114 mm[Hg] 114 mm[Hg] [facility] Diastolic blood pressure 69 mm[Hg] 69 mm[Hg] [facility] Heart rate 72 /min 72 /min [facility] Body temperature 36.11 Xenia 36.11 Xenia [facility] Respiratory rate 18 /min 18 /min [facility] Body height 144.8 cm 144.8 cm [facility] Body weight 100.699 kg 100.699 kg [facility] Body mass index (BMI) [Ratio] 48.04 kg/m2 48.04 kg/m2 [facility] Oxygen saturation in Arterial blood by Pulse oximetry 96 % 96 % [facility] Systolic blood pressure 120 mm[Hg] 120 mm[Hg] [facility] Diastolic blood pressure 73 mm[Hg] 73 mm[Hg] [facility] Heart rate 76 /min 76 /min [facility] Body temperature 36.28 Xenia 36.28 Xenia [facility] Respiratory rate 20 /min 20 /min [facility] Body height 144.8 cm 144.8 cm [facility] Body weight 102.331 kg 102.331 kg [facility] Body mass index (BMI) [Ratio] 48.82 kg/m2 48.82 kg/m2 [facility] Oxygen saturation in Arterial blood by Pulse oximetry 95 % 95 % [facility] Body mass index (BMI) [Ratio] 48.0 48.0 NETSMART ([facility]) Systolic blood pressure 115.0 MM[HG] 115.0 MM[H G] NETSMART ([facility]) Diastolic blood pressure 80.0 MM[HG] 80.0 MM[HG ] NETSMART ([facility]) Pain severity - 0-10 verbal numeric rating [Score] - Reported 3.0 S mckenzie 3.0 Scale [facility] Body weight 100.9 KG 100.9 KG [facility] Oxygen saturation in Arterial blood by Pulse oximetry 98.0 % 98.0 % [facility] Body height 144.8 cm 144.8 cm [facility] Body temperature 97.5 [DEGF] 97.5 [DEGF] NETSMN RT ([facility]) Body temperature 36.4 XENIA 36.4 XENIA [facility] Heart rate 69.0 /MIN 69.0 /MIN [facility] Respiratory rate 16.0 /MIN 16.0 /MIN [facility] ([facility]) ID Date Data Source [id number] 12/14/2020 06:21:54 PM EDT [facility] Name Value Range Interpretation Code Description Data Source(s) WEIGHT RECORDED 215 lb 215 lb [facility] Body height Measured 57 in 57 in [facility] ID Date Data Source [id number] 08/28/2020 09:54:13 AM T [facility] Name Value Range Interpretation Code Description Data Source(s) Body height Measured 57 in 57 in [facility] Patient Treatment Plan of Care Planned Activity Planned Date Details Description Data Source (s) Prednisone 10 MG Oral Tablet 11/21/2020 12:00:00 AM EDT [facility] Diclofenac Sodium 75 MG Delayed Release Oral Tablet 08/31/19 12:00:00 AM EDT [facility] Acetaminophen 325 MG Oral Tablet 08/30/2020 12:00:00 AM EDT [facility] NITROFURANTOIN, MACROCRYSTALS 25 MG / Ni trofurantoin, Monohydrate 75 MG Oral Capsule 08/25/2020 12:00:00 AM EDT [facility] Cephalexin 500 MG Oral Capsule 08/22/2020 12:00:00 AM EDT [facility] sodium chloride (preservative free) 0.9 % flush 10 mL 08/21/2020 06:24:49 PM T [facility] Acetaminophen 325 MG Oral Tablet 08/21/2020 12:00:00 AM [facility] Cephalexin 500 MG Oral Capsule 08/21/2020 12:00:00 AM [facility] sennosides, SHELTER 8.6 MG Oral Tablet 08/18/2020 12:00:00 AM EST [facility] ropinirole 0.25 MG Oral Tablet 08/18/2020 12:00:00 AM EST [facility] POLYETHYLENE GLYCOL 3350 142 MG/ML Oral Solution 08/18/2020 12:00:0 0 AM EST [facility] calcium polycarbophil 625 MG Oral Tablet 08/18/2020 12:00:00 AM [facility] montelukast 10 MG Oral Tablet 08/18/2020 12:00:00 AM [facility] Desmopressin Acetate 0.01 MG/ACTUAT Nasal [place] 08/18/2020 12:00:00 AM [facility] 30 ACTUAT umeclidinium 0.0625 MG/ACTUAT / vilanterol 0.025 MG/ACTUAT Dry Powder Inhaler [Anoro] 08/18/2020 12:00:00 AM EST [facility] albuterol (PROVENTIL HFA;VENTOLIN HFA) 108 (90 Base) M CG/ACT inhaler 08/18/2020 12:00:00 AM EST [facility] Trazodone Hydrochloride 150 MG Oral Tablet 08/09/2020 12:00:00 AM E [facility] Esomeprazole 20 MG Delayed Release Oral Capsule 07/19/2020 12:00:00 AM EST [facility] sennosides, SHELTER 8.6 MG Oral Tablet 06/20/2020 12:00:00 AM [facility] ropinirole 0.25 MG Oral Tablet 06/20/2020 12:00:00 AM EST [facility] Desmopressin Acetate 0.01 MG/ACTUAT Nasal [place] 06/20/2020 12:00:00 AM EST [facility] 30 ACTUAT umeclidinium 0.0625 MG/ACTUAT / vilanterol 0.025 MG/ACTUAT Dry Powder Inhaler [Anoro] 06/20/2020 12:00:[address] [facility] albuterol (PROVENTIL HFA;VENTOLIN HFA) 108 (90 Base) M CG/ACT inhaler 06/20/2020 12:00:00 AM [facility] Esomeprazole 20 MG Delayed Release Oral Capsule 06/20/2020 12:00:00 AM [facility] Multiple Vitamins-Iron (MULTIVITAMIN WITH IRON) TABS 021 12:00:00 AM [facility] calcium polycarbophil 625 MG Oral Tablet 05/27/2020 12:00:00 AM [facility] POLYETHYLENE GLYCOL 3350 142 MG/ML Oral Solution 05/27/2020 12:00:0 0 AM [facility] montelukast 10 MG Oral Tablet 05/27/2020 12:00:00 AM [facility] quetiapine 100 MG Oral Tablet 05/04/2020 12:00:00 AM [facility] doxycycline hyclate 100 MG Oral Tablet 05/04/2020 12:00:00 AM [facility] quetiapine 25 MG Oral Tablet 04/26/2020 12:00:00 AM [facility] Multiple Vitamins-Iron (MULTIVITAMIN WITH IRON) TABS 020 12:00:00 AM [facility] Esomeprazole 20 MG Delayed Release Oral Capsule 04/25/2020 12:00:00 AM [facility] sennosides, SHELTER 8.6 MG Oral Tablet 04/25/2020 12:00:00 AM [facility] 30 ACTUAT umeclidinium 0.0625 MG/ACTUAT / vilanterol 0.025 MG/ACTUAT Dry Powder Inhaler [Anoro] 04/25/2020 12:00:[address] [facility] albuterol (PROVENTIL HFA;VENTOLIN HFA) 108 (90 Base) M CG/ACT inhaler 04/25/2020 12:00:00 AM EST [facility] POLYETHYLENE GLYCOL 3350 142 MG/ML Oral Solution 04/25/2020 12:00:0 0 AM EST [facility] montelukast 10 MG Oral Tablet 04/25/2020 12:00:00 AM EST [facility] calcium polycarbophil 625 MG Oral Tablet 04/25/2020 12:00:00 AM EST [facility] Desmopressin Acetate 0.01 MG/ACTUAT Nasal [place] 04/12/2020 12:00:00 AM EST [facility] Esomeprazole 20 MG Delayed Release Oral Capsule 04/04/2020 12:00:00 AM EDT [facility] Clonidine Hydrochloride 0.1 MG Oral Tablet 04/03/2020 12:00:00 AM E DT [facility] benztropine mesylate 1 MG Oral Tablet 04/03/2020 12:00:00 AM EDT [facility] Ibuprofen 600 MG Oral Tablet 04/03/2020 12:00:00 AM EDT [facility] ropinirole 0.25 MG Oral Tablet 04/03/2020 12:00:00 AM EDT [facility] Guanfacine 1 MG Oral Tablet 03/29/2020 12:00:00 AM EDT [facility] 30 ACTUAT umeclidinium 0.0625 MG/ACTUAT / vilanterol 0.025 MG/ACTUAT Dry Powder Inhaler [Anoro] 03/21/2020 12:00:00 AM EDT [facility] 12 HR Bupropion Hydrochloride 150 MG Extended Release Oral Tablet 03/10/2020 12:00:00 AM EDT [facility] Acetaminophen 325 MG Oral Tablet 12/16/2019 12:00:00 AM EDT [facility] albuterol (PROVENTIL HFA;VENTOLIN HFA) 108 (90 Base) M CG/ACT inhaler 12/16/2019 12:00:00 AM EDT [facility] Albuterol 0.83 MG/ML Inhalant Solution 12/16/2019 12:00:00 AM EDT [facility] Albuterol 0.833 MG/ML / Ipratropium [place] 0.167 MG/M L Inhalant Solution 12/16/2019 12:00:00 AM EDT [facility] Ascorbic Acid 60 MG / Beta Carotene 5000 UNT / Copper Sulfate 40 MG / dl-alpha tocopheryl acetate 30 UNT / Sodium Selenite 0.04 MG / Zinc Oxide 40 MG Oral Tablet 10/22/2019 12:00:00 AM EDT [facility] calcium polycarbophil 625 MG Oral Tablet 10/22/2019 12:00:00 AM EDT [facility] 60 ACTUAT Fluticasone propionate 0.25 MG /ACTUAT / salmeterol 0.05 MG/ACTUAT Dry Powder Inhaler 10/22/2019 12:00:00 AM EDT [facility] montelukast 10 MG Oral Tablet 10/22/2019 12:00:00 AM EDT [facility] Trazodone Hydrochloride 100 MG Oral Tablet 10/14/2019 12:00:00 AM E DT [facility] quetiapine 100 MG Oral Tablet 10/14/2019 12:00:00 AM EDT [facility] Trazodone Hydrochloride 50 MG Oral Tablet [facility] olanzapine 10 MG Oral Tablet [facility] ferrous sulfate 325 MG Oral Tablet [facility]
[2021-03-27 19:50] VITALS: BP 110/73
--- OUTSIDE RECORDS SUMMARY | 2021-03-27 20:36 | CCD ---
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 Description Data Judith rce(s) Supporting Document(s) Choriogonadotropin.beta subunit free [Units/volume] in Serum or Plasm a <5 [facility] (NOTE)Levels between 5 and 25 [IU]/L may indicate earlypregnancy and should be repeated after 48 hours. ID Date Data Source [id number] 08/21/2020 08:22:27 PM [facility] Name Value Range Interpretation Code Description Data Judith rce(s) Supporting Document(s) Sodium [Moles/volume] in Blood 140 mmol/L 136-145 [facility] Potassium [Moles/volume] in Blood 3.5 mmol/L 3.4-5.1 [facility] Chloride [Moles/volume] in Blood 107 mmol/L 98-107 [facility] Carbon dioxide, total [Moles/volume] in Blood 23 mmol/L 22-29 [facility] Calcium.ionized [Moles/volume] in Blood 1.24 mmol/L 1.13-1.32 [facility] Glucose [Mass/volume] in Blood 98 mg/dL 70-140 [facility] Urea nitrogen [Mass/volume] in Blood 17 mg/dL 6-20 [facility] Creatinine [Mass/volume] in Blood 0.5 mg/dL 0.50-0.90 [facility] Hematocrit [Volume Fraction] of Blood 42 % 36-45 [facility] Hemoglobin [Mass/volume] in Blood by calculation 14.3 g/dL 11.5-15.5 [facility] ID Date Data Source [id number] 08/22/2020 08:10:09 PM EDT [facility] Name Value Range Interpretation Code Description Data Judith rce(s) Supporting Document(s) Clotting time.intrinsic coagulation syst em activated of Blood by Thromboelastography 4.9 min 5.0-10.0 L [facility] Clot formation.intrinsic coagulation sys tem activated [Time] in Blood by Thromboelastography 1.2 min 1.0-3.0 [facility] Clot angle in Blood by Thromboelastography 72.0 deg 53.0-72.0 [facility] Maximum clot firmness [Length] in Blood by Thromboelastograp hy 70.6 mm 50.0-71.0 [facility] Clot Lysis [Length fraction] in Blood by Thromboelastography --30 minutes post maximum clot amplitude 0.3 % 0-7.5 [facility] Coagulation specialist review of results [facility] The TEG parameters are essentially withi n normal limits, providing no indication for blood products. Although no hemostatic defect is identified, the patient's clinical condition and the results of other available hemostasis tests should also be evaluated to determine if blood products are indicated. Pathologist name [facility] ID Date Data Source [id number] 08/21/2020 08:55:48 PM EDT [facility] Value Range Interpretation Code Description Data Judith rce(s) Supporting Document(s) ABO and Rh group [Type] in Blood [facility] Blood group antibody screen [Presence] in Serum or Plasma [facility] Performed at [facility], [place] Type Confirmed ID Date Data Source [id number] 08/21/2020 08:29:05 PM EDT [facility] Name Value Range Interpretation Code Description Data Judith rce(s) Supporting Document(s) Leukocytes [#/volume] in Blood by Automated count 13.9 10*3/uL 4-10 H [facility] Erythrocytes [#/volume] in Blood by Automated count 4.66 10*6/uL 4.1- 5.3 [facility] Hemoglobin [Mass/volume] in Blood 13.2 g/dL 11.5-15.5 [facility] Hematocrit [Volume Fraction] of Blood by Automated count 40.3 % 3 6-45 [facility] Erythrocyte mean corpuscular volume [Entitic volume] by Auto mated count 86.3 fL 80-96 [facility] Erythrocyte mean corpuscular hemoglobin [Entitic mass] by Automated count 28.3 pg 27-33 [facility] Erythrocyte mean corpuscular hemoglobin concentration [Mass/volume] by Automated count 32.7 g/dL 32.0-36.0 [facility] width [Ratio] by Automated count 13.7 % 11.5-14.5 [facility] Platelets [#/volume] in Blood by Automated count 255 10*3/uL 150-400 [facility] Differential cell count method - Blood [facility] Neutrophils/100 leukocytes in Blood by Automated count 74 % [facility] Lymphocytes/100 leukocytes in Blood by Automated count 19 % [facility] Monocytes/100 leukocytes in Blood by Automated count 6 % [facility] Eosinophils/100 leukocytes in Blood by Automated count 0 % [facility] Basophils/100 leukocytes in Blood by Automated count 1 % [facility] Neutrophils [#/volume] in Blood by Automated count 10.32 10*3/uL 1.8- 7.0 H [facility] Lymphocytes [#/volume] in Blood by Automated count 2.67 10*3/uL 1.2-4 .0 [facility] Monocytes [#/volume] in Blood by Automated count 0.82 10*3/uL 0-0.8 H [facility] Eosinophils [#/volume] in Blood by Automated count 0.04 10*3/uL 0-0.5 [facility] Basophils [#/volume] in Blood by Automated count 0.06 10*3/uL 0-0.2 [facility] Nucleated erythrocytes/100 leukocytes [Ratio] in Blood by Automated count 0 /100{WBCs} 0-0 [facility] ID Date Data Source [id number] 08/21/2020 08:46:40 PM [facility] Value Range Interpretation Code Description Data Judith rce(s) Supporting Document(s) Prothrombin time (PT) 13.4 s 12.5-14.9 [facility] INR in Platelet poor plasma by Coagulation assay 1.01 [facility] Routine intensity oral anticoagulation I NR is typically 2.0-3.0. Target INR must be clinically individualized. ID Date Data Source [id number] 08/21/2020 08:46:40 PM [facility] Value Range Interpretation Code Description Data Judith rce(s) Supporting Document(s) aPTT in Platelet poor plasma by Coagulation assay 27.2 s 24.0-33. 0 [facility] ID Date Data Source [id number] 08/21/2020 08:53:09 PM [facility] Value Range Interpretation Code Description Data Judith rce(s) Supporting Document(s) Lipase [Enzymatic activity/volume] in Serum or Plasma 22 U/L 13-6 0 [facility] ID Date Data Source [id number] 08/21/2020 08:53:09 PM [facility] Value Range Interpretation Code Description Data Judith rce(s) Supporting Document(s) Albumin [Mass/volume] in Serum or Plasma by Bromocresol green (BCG) dye binding method 3.4 g/dL 3.5-5.2 [facility] Bilirubin.total [Mass/volume] in Serum or Plasma 0.3 mg/dL <1.2 [facility] Calcium [Mass/volume] in Serum or Plasma 8.8 mg/dL 8.6-10.0 [facility] Chloride [Moles/volume] in Serum or Plasma 109 mmol/L 98-107 [facility] Creatinine [Mass/volume] in Serum or Plasma 0.61 mg/dL 0.50-0.90 [facility] Glucose [Mass/volume] in Serum or Plasma 99 mg/dL 70-140 [facility] Alkaline phosphatase [Enzymatic activity/volume] in Serum or Plasma 62 U/L 35-104 [facility] Potassium [Moles/volume] in Serum or Plasma 3.5 mmol/L 3.4-5.1 [facility] Protein [Mass/volume] in Serum or Plasma 6.0 g/dL 6.4-8.3 L [facility] Sodium [Moles/volume] in Serum or Plasma 139 mmol/L 136-145 [facility] Aspartate aminotransferase [Enzymatic activity/volume] in Serum or Plasma 45 U/L <32 [facility] Urea nitrogen [Mass/volume] in Serum or Plasma 16 mg/dL 6-20 [facility] Osmolality of Serum or Plasma by calculation 290 mosm/kg 275-300 [facility] Creatinine/Urea nitrogen [Mass Ratio] in Serum or Plasma 25 [facility] Bicarbonate [Moles/volume] in Serum 21 mmol/L 22-29 L [facility] Alanine aminotransferase [Enzymatic activity/volume] in Seru m or Plasma 49 U/L <33 [facility] Anion gap 3 in Serum or Plasma 9 mmol/L 8-15 [facility] Glomerular filtration rate/1.73 sq M pre dicted among non-blacks [Volume Rate/Area] in Serum or Plasma by Creatinine-based formula (MDRD) >6 0 [facility] Glomerular filtration rate/1.73 sq M pre dicted among blacks [Volume Rate/Area] in Serum or Plasma by Creatinine-based formula (MDRD) >60 [facility] ID Date Data Source [id number] 08/21/2020 08:15:07 PM EDT [facility] Name Value Range Interpretation Code Description Data Judith rce(s) Supporting Document(s) Troponin I.cardiac [Mass/volume] in Blood 0.00 ng/mL 0.00-0.08 [facility] ID Date Data Source [id number] 07/26/2020 01:19:38 PM EST [facility] Name Value Range Interpretation Code Description Data Judith rce(s) Supporting Document(s) &PDF [facility] TSAWXi3tKuJEShHo55/GELkwWSBws0UiRIdfTJf9PUerQVBpP6TqqGqoKAoHUV6CZ31xMe1HINYaAGKx waW [file] +XZ9nRkLo5vjhnlgg1HnoYfoU5+OWpMEOZqL5D [file] ICAgICAgICAgICAgICAgICAgICAgICAgICAgICAgIC AgICAgICAgICAgICAgICAgICAgICAgDQogICAgICAgICAgICAgICAgICAgICAgICAgICAgICAgICAgIC AgICAgICAgICAgICAgICAgICAgICAgICAgICAgICAgICAgICAgICAgICAgICAgICAgICAgICAgICAgIC AgICAgDQogICAgICAgICAgICAgICAgICAgICAgICAg ICAgICAgICAgICAgICAgICAgICAgICAgICAgICAgICAgICAgICAgICAgICAgICAgICAgICAgICAgICAg ICAgICAgICAgICAgICAgDQogICAgICAgICAgICAgICAgICAgICAgICAgICAgICAgICAgICAgICAgICAg ICAgICAgICAgICAgICAgICAgICAgICAgICAgICAgIC AgICAgICAgICAgICAgICAgICAgICAgICAgDQogICAgICAgICAgICAgICAgICAgICAgICAgICAgICAgIC AgICAgICAgICAgICAgICAgICAgICAgICAgICAgICAgICAgICAgICAgICAgICAgICAgICAgICAgICAgIC AgICAgICAgDQogICAgICAgICAgICAgICAgICAgICAg ICAgICAgICAgICAgICAgICAgICAgICAgICAgICAgICAgICAgICAgICAgICAgICAgICAgICAgICAgICAg ICAgICAgICAgICAgICAgICAgDQogICAgICAgICAgICAgICAgICAgICAgICAgICAgICAgICAgICAgICAg ICAgICAgICAgICAgICAgICAgICAgICAgICAgICAgIC AgICAgICAgICAgICAgICAgICAgICAgICAgICAgDQogICAgICAgICAgICAgICAgICAgICAgICAgICAgIC AgICAgICAgICAgICAgICAgICAgICAgICAgICAgICAgICAgICAgICAgICAgICAgICAgICAgICAgICAgIC AgICAgICAgICAgDQogICAgICAgICAgICAgICAgICAg ICAgICAgICAgICAgICAgICAgICAgICAgICAgICAgICAgICAgICAgICAgICAgICAgICAgICAgICAgICAg ICAgICAgICAgICAgICAgICAgICAgDQogICAgICAgICAgICAgICAgICAgICAgICAgICAgICAgICAgICAg ICAgICAgICAgICAgICAgICAgICAgICAgICAgICAgIC HuRLMoCCBaUZZqJRCmHOGsYNDtAPJrRXAyUEQvFJJnACg3F1jxIZSnHSYiRB7nRKw2Ha8+DQoNCmVuZH N6bbLwoG3RMC9ib8QaNPonCMBmz9SwFVc8EQ6ISPYwQZjuDK8ZQMorqx7GMPCyKUAhnHGSv3qxOiLnGL H1SEVkEdtzSJ7SRITcN9pgcfNiMDMpAHJYXY7FCgQo R5VwtH76WFESJj6+UXdjotZcJsmGXuU4SJTip1BoDNz0WM5LQBBgSSpjGB3MXCJjvZ1tTRpgCN8NHmHk JeFjXMBCNhUqV86wmKWnTBy5L2IiWpIxXVNoEjdxJQFfFEhiTsQiDSTlAzHlHQkhBF4+ID4+TNoqMC3D XZxajdBcGKFlTx2BWJJtLOL8IELygNGoMBnmJBNLZL skOM1XeDKiGZI9pC7mVSmsIIPsZHHyA9vTPzRcoNwiJN92wWvxhkAyaJVdXYz+Ru0FQU3uq2NgEGm4mk YiTTgzILNwKGrnVBPiLGTvVAOnRWY3XIA1NROHMbUjXXMrKFRjGKtjZAEsPNRzfs6TCPMkBCYsZSn1ML UxJUNwEBLmSLosDWAaBJB8IWr3JBHrWDQbEC6JSwKq KUCcKKTvGIjyVLFjEASnoq2FHKVoRQKrFhw1LBGmVQVjCLXyNLozZWXmWNIuPMvoUJLqDUIgFC9JJmTy RAMxXXI5OTVbKILsDBUeze0MVLSiNCRqGCH1UnMdOHDjFINvOAnkCAQeWHK8ZzZ5PLXfOUHgKV4OFnTs VRApGCWkIFSwYBDhPLPnys1LHMKqBLRcXVZ8JtQgWF BjBYKiMCsaIKGqNHP6Xfg5SZZvAOKvVT6YYbMtAXVlMON6GrAlDZFqRQYoar4ZSNLlAVIqTkgdZgHmVK UaNJObLGrzJXZmPHU5EZQ7VGCwDAAaUH0FPbEnPGImTGF5JRTgXEDkOLVugn7CTNCyEANoGBbsGPQrRL TwFSUxMAamIZZwTBT4SYY0ITCkHQYrYQ0EOhZqZDLu XAs6ZJVxDZDwYEDqwv1XmQPrcOofhi3JCOkUWn3LvNgcLQPxIJwtXd7toDAaVHEiNSXOLs7UlpKoYLRq EJAWJVsvTXAtJVdqWPJlXrZ7RZP0FBLpDvi7AdXoRYFlRaQcTgQiVWF8BxI4N3H1LwWdChl5BWR0HBNr OTVjNWUwMmRmYjFiNDNhZTg+SQ3yQOa+Ic8Xb5JmxuZ8kgAxCYweGgp3In7HKSKLB7OUKw== ID Date Data Source [id number] 07/19/2020 05:19:57 PM EST [facility] NT INFORMATIONPatient MRN Name Date of Age Gend*PT [id number] Denisha Harding 1990 30 years F ---PT Location Admission Date/Time Visit ID Attending Provider --- --- --- --- EPI ID CSN Admitting Provider [id number] ---Addended by: MARKY MEDLEY on: 07/19/2020 05:19 PM Modules accepted: Orders Name Value Range Interpretation Code Description Data Judith rce(s) Supporting Document(s) ID Date Data Source [id number] 07/11/2020 05:00:00 AM EST [facility] ([facility]) Name Value Range Interpretation Code Description Data Judith rce(s) Supporting Document(s) Creatinine 153.7NORMALNORMAL NE [facility] ([facility]) pH 7.4NORMALNORMAL [facility] ([facility]) Oxidants -11.00NegativeNegative [facility] ([facility]) Validity Result VALIDVALIDVALID [facility] ([facility]) Amphetamines 299.00NegativeNegative [facility] ([facility]) Barbiturates -2.00NegativeNegative [facility] ([facility]) Benzodiazepines 3.00NegativeNegative [facility] ([facility]) Buprenorphine 111.10PRESUMPTIVE POSITIVEPRESUMPTIVE POSITIVE [facility] ([facility]) Cotinine 649.00PRESUMPTIVE POSITIVEPRESUMPTIVE POSITIVE [facility] Cocaine Metabolites -28.00NegativeNegative [facility] ([facility]) EDDP -97.00NegativeNegative [facility] ([facility]) Ethyl Glucuronide 151.00NegativeNegative [facility] ([facility]) Ethyl Alcohol 0.00NegativeNegative [facility] ([facility]) Fentanyl 1.100PRESUMPTIVE POSITIVEPRESUMPTIVE POSITIVE [facility] ([facility]) Heroin (6-AM) -0.10NegativeNegative [facility] ([facility]) Opiates -28.00NegativeNegative [facility] ([facility]) Methadone -10.00NegativeNegative [facility] ([facility]) Cannabinoids -5.60NegativeNegative [facility] ([facility]) Synthetic Opiates -24.00NegativeNegative [facility] ([facility]) Phencyclidine 1.30NegativeNegative [facility] ([facility]) Tramadol 42.00NegativeNegative [facility] ([facility]) Tricyclics 547.00PRESUMPTIVE POSITIVEPRESUMPTIVE POSITIVE [facility] ([facility]) Ecstasy (MDMA) 50.00NegativeNegative [facility] ([facility]) Buprenorphine 216.190Positive - ConsistentPOSITIVE [facility] ([facility]) Norbuprenorphine 476.890Positive - ConsistentPOSITIVE [facility] ([facility]) Norfentanyl 0.610NegativeNegative [facility] ([facility]) Naloxone 629.130Positive - InconsistentPOSITIVE [facility] ([facility]) Fentanyl 0.040NegativeNegative [facility] ([facility]) Norcarfentanil 0.190NegativeNegative [facility] ([facility]) Carfentanil 0.040NegativeNegative [facility] ([facility]) Doxepin 0.000NegativeNegative [facility] ([facility]) Sufentanil 0.080NegativeNegative [facility] ([facility]) Desmethyldoxepin 0.000NegativeNegative NETSMART ([facility]) Nortriptyline 6.610NegativeNegative NETSMART ([facility]) Imipramine 3.450NegativeNegative NETSMART ([facility]) Clomipramine 12.060NegativeNegative NETSMART ([facility]) Amitriptyline 4.260NegativeNegative NETSMART ([facility]) Desipramine 7.260NegativeNegative NETSMART ([facility]) Clozapine 0.020NegativeNegative NETSMART ([facility]) Chlorpromazine 0.160NegativeNegative NETSMART ([facility]) Aripiprazole 0.000NegativeNegative NETSMART ([facility]) Fluphenazine 0.090NegativeNegative NETSMART ([facility]) Haloperidol 0.040NegativeNegative NETSMART ([facility]) Olanzapine 0.140NegativeNegative NETSMART ([facility]) Lurasidone 0.280NegativeNegative NETSMART ([facility]) Promethazine 0.020NegativeNegative NETSMART ([facility]) Quetiapine 50Positive - ConsistentPOSITIVE> NETSMART ([facility]) Trifluoperazine 0.230NegativeNegative NETSMART ([facility]) Risperidone 0.000NegativeNegative NETSMART ([facility]) Bupropion 50Positive - ConsistentPOSITIVE> NETSMART ([facility]) Ziprasidone 0.000NegativeNegative NETSMART ([facility]) Trazodone 50Positive - ConsistentPOSITIVE> NETSMART ([facility]) Hydroxybupropion 50Positive - ConsistentPOSITIVE> [facility]SMART ([facility]) mCPP 50Positive - ConsistentPOSITIVE> [facility]SM[facility] ([facility]) ID Date Data Source [id number] 07/14/2020 11:21:15 AM EST [facility] NOTE: Presumptive [...] Result VALIDVALIDVALID [facility] ID Date Data Source [id number] 07/14/2020 11:21:17 AM EST [facility] NOTE: Presumptive [...] 500.00 ng/mL [facility] ID Date Data Source [id number] 07/14/2020 11:21:18 AM EST [facility] NOTE: Presumptive [...] non-numeric results) [facility] ID Date Data Source [id number] 07/14/2020 11:21:20 AM EST [facility] NOTE: Presumptive [...] 1.00 ng/mL [facility] ID Date Data Source [id number] 07/14/2020 11:21:22 AM EST [facility] NOTE: Presumptive [...] 50.00 ng/mL [facility] ID Date Data Source [id number] 07/14/2020 11:21:19 AM EST [facility] NOTE: Presumptive [...] 10.00 ng/mL [facility] ID Date Data Source [id number] 07/14/2020 11:21:19 AM EST [facility] NOTE: Presumptive [...] 1.00 ng/mL [facility] ID Date Data Source [id number] 07/14/2020 11:21:20 AM EST [facility] NOTE: Presumptive [...] 1.00 ng/mL [facility] ID Date Data Source [id number] 07/05/2020 12:28:28 PM EST [facility] NT INFORMATIONPatient MRN Name Date of Age Gend*PT [id number] Denisha Harding 1990 30 years F OPPT Location Admission Date/Time Visit ID Attending Provider --- --- --- Mookie Schroeder MD([id number]) EPI ID CSN Admitting Provider [id number] ---Denisha Harding was seen by Marky Medley MD.The problems addressed include:1. Cough2. Moderate persistent asthma without complication3. Polysubstance abuse4. Nicotine dependence with nicotine-induced disorder, unspecified nicotineproduct type5. Irritable bowel syndrome with constipation6. GERD without esophagitis7. Dysfunctional uterine bleeding s/p ablation8. Paroxysmal atrial fibrillation9. Restless leg vflpogzu30. Von Willebrand iljidoe72. Immunization refusedI have discussed the case with the care-rendering provider Marky Medley MD. Ireviewed and agree with the findings, assessment and plan as documented.Niesha Guevara DO Name Value Range Interpretation Code Description Data Judith rce(s) Supporting Document(s) ID Date Data Source [id number] 06/25/2020 11:48:27 PM EST [facility] NT INFORMATIONPatient MRN Name Date of Age Gend*PT [id number] Denisha Harding 1990 30 years F OPPT Location Admission Date/Time Visit ID Attending Provider --- --- --- Mookie Schroeder MD([id number]) EPI ID CSN Admitting Provider [id number] ---Subjective: Denisha Harding is a female of 30 years who presents today for various chronic andacute issueB[facility], back at homePalpitation and dizziness, wakes her up, intermittent, q3d, started mon 06/13Psych wants sleep study 2/2 worsening nightmaresStill seeing counselor and [facility] started again despite s/p ablation 2017Desmopressin [...] heroinFo llows with Carri Hale (prescribing) at [facility] [phone] & Plan:Clean x4mo, continues to follow with [facility] for counseling/prescribingOrders:- Multiple Vitamins-Iron (MULTIVITAMIN [...] have recurred despite prior ablation, refer to MANAGED CARE ANALYST for possible repeatOrders:- Ambulatory referral to [...] rce(s) Supporting Document(s) ID Date Data Source [id number] 06/23/2020 11:50:47 AM EST [facility] Name Value Range Interpretation Code Description Data Judith rce(s) Supporting Document(s) RESPIRATORY SOURCE [facility] Nasopharyngeal INFLUENZA A BY PCR [facility] Not Detected INFLUENZA B BY PCR [facility] Detected RSV BY PCR [facility] Not Detected INTERPRETIVE INFORMATION: R espiratory Virus Mini Panel by PCR A negative result does not rule out the presence of PCR inhibitors in the patient specimen or assay specific nucleic acid in concentrations below the level of detection by the assay. Performed by [facility], [address] [place] [id number] [email or web address], Sylvia Mcmillan MD, Lab. Director ID Date Data Source [id number] 06/23/2020 08:24:03 AM EST [facility] Name Value Range Interpretation Code Description Data Judith rce(s) Supporting Document(s) SARS COV2 SOURCE [facility] SARS COV 2 BY PCR [facility] Not Detected INTERPRETIVE INFORMATION: S ARS-CoV-2 (COVID-19) [...] In compliance with this authorization, please visit [email or web address] for more information and to access the [...] collection, transport, storage, and handling. Performed by [facility], [address] [place] [address] [email or web address], Sylvia Mcmillan MD, Lab. Director ID Date Data Source [id number] 05/30/2020 05:00:00 AM EST [facility]SMART ([facility]) Name Value Range Interpretation Code Description Data Judith rce(s) Supporting Document(s) pH 6.9NORMALNORMAL NETSM ART ([facility]) Creatinine 162.1NORMALNORMAL NE TSMART ([facility]) Amphetamines 352.00NegativeNegative NETSMART ([facility]) Oxidants -16.00NegativeNegative [facility]SMART ([facility]) Validity Result VALIDVALIDVALID NETSMART ([facility]) Benzodiazepines 44.00NegativeNegative NETSMART ([facility]) Buprenorphine 122.40PRESUMPTIVE POSITIVEPRESUMPTIVE POSITIVE NETSMART ([facility]) Barbiturates 9.00NegativeNegative NETSMART ([facility]) Cotinine 1193.00PRESUMPTIVE POSITIVEPRESUMPTIVE POSITIVE NETSMART ([facility]) Cocaine Metabolites -9.00NegativeNegative NETSMART ([facility]) EDDP -58.00NegativeNegative NETSMART ([facility]) Ethyl Alcohol 16.00NegativeNegative NETSMART ([facility]) Ethyl Glucuronide 408.00NegativeNegative NETSMART ([facility]) Heroin (6-AM) 3.00NegativeNegative NETSMART ([facility]) Methadone -13.00NegativeNegative NETSMART ([facility]) Fentanyl 1.700PRESUMPTIVE POSITIVEPRESUMPTIVE POSITIVE NETSMART ([facility]) Synthetic Opiates -23.00NegativeNegative NETSMART ([facility]) Opiates -16.00NegativeNegative NETSMART ([facility]) Phencyclidine 22.10NegativeNegative NETSMART ([facility]) Tramadol 34.00NegativeNegative NETSMART ([facility]) Cannabinoids -14.10NegativeNegative NETSMART ([facility]) Tricyclics 688.00PRESUMPTIVE POSITIVEPRESUMPTIVE POSITIVE NETSMART ([facility]) Ecstasy (MDMA) 82.00NegativeNegative [facility]) Norbuprenorphine 494.990Positive - ConsistentPOSITIVE NETSMART ([facility]) Buprenorphine 250Positive - ConsistentPOSITIVE> [facility]) Naloxone 647.270Positive - InconsistentPOSITIVE NETSMART ([facility]) Carfentanil 0.000NegativeNegative NETSMART ([facility]) Norfentanyl 0.280NegativeNegative NETSMART ([facility]) Fentanyl 0.060NegativeNegative NETSMART ([facility]) Norcarfentanil 0.120NegativeNegative NETSMART ([facility]) Sufentanil 0.080NegativeNegative NETSMART ([facility]) Desmethyldoxepin 0.000NegativeNegative NETSMART ([facility]) Imipramine 5.420NegativeNegative NETSMART ([facility]) Doxepin 4.360NegativeNegative NETSMART ([facility]) Amitriptyline 0.000NegativeNegative NETSMART ([facility]) Nortriptyline 0.360NegativeNegative NETSMART ([facility]) Aripiprazole 0.000NegativeNegative NETSMART ([facility]) Clomipramine 10.470NegativeNegative NETSMART ([facility]) Desipramine 0.000NegativeNegative NETSMART ([facility]) Chlorpromazine 0.000NegativeNegative NETSMART ([facility]) Clozapine 0.000NegativeNegative NETSMART ([facility]) Lurasidone 0.230NegativeNegative NETSMART ([facility]) Haloperidol 0.000NegativeNegative NETSMART ([facility]) Fluphenazine 0.070NegativeNegative NETSMART ([facility]) Quetiapine 50Positive - ConsistentPOSITIVE> NETSMART ([facility]) Olanzapine 0.120NegativeNegative NETSMART ([facility]) Promethazine 0.000NegativeNegative NETSMART ([facility]) Risperidone 0.000NegativeNegative NETSMART ([facility]) Trifluoperazine 0.250NegativeNegative NETSMART ([facility]) Ziprasidone 0.000NegativeNegative NETSMART ([facility]) Bupropion 50Positive - ConsistentPOSITIVE> NETSMART ([facility]) Hydroxybupropion 50Positive - ConsistentPOSITIVE> NETSMART ([facility]) mCPP 50Positive - ConsistentPOSITIVE> NETSMART ([facility]) Trazodone 50Positive - ConsistentPOSITIVE> NETSMART ([facility]) ID Date Data Source [id number] 06/04/2020 02:01:45 PM EST [facility] NOTE: Presumptive [...] Result VALIDVALIDVALID [facility] ID Date Data Source [id number] 06/04/2020 02:01:45 PM EST [facility] NOTE: Presumptive [...] 500.00 ng/mL [facility] ID Date Data Source [id number] 06/04/2020 02:01:45 PM EST [facility] NOTE: Presumptive Positive indicates a n onnegative test result by immunoassay screen. It is a preliminary result. [facility] recommends that a Presumptive Positive result be confirmed by an additional, more specific test such as mass spectrometry Name Value Range Interpretation Code Description Data Judith [facility](s) Supporting Document(s) Buprenorphine 250Positive - ConsistentPOSITIVE> ng/mL 5.00 n g/mL [facility] Norbuprenorphine 494.990Positive - ConsistentPOSITI VE ng/mL 10.00 ng/mL [facility] Naloxone 647.270Positive - InconsistentPOSITIVE ng/mL 25.00 ng/mL Abnormal (applies to non-numeric results) [facility] ID Date Data Source [id number] 06/04/2020 02:01:46 PM EST [facility] NOTE: Presumptive Positive indicates a n onnegative test result by immunoassay screen. It is a preliminary result. [facility] recommends that a Presumptive Positive result be confirmed by an additional, more specific test such as mass spectrometry Name Value Range Interpretation Code Description Data Judith [facility](s) Supporting Document(s) Norfentanyl 0.280NegativeNegative ng/mL 1.00 ng/mL [facility] Fentanyl 0.060NegativeNegative ng/mL 1.00 ng/mL [facility] Carfentanil 0.000NegativeNegative ng/mL 1.00 ng/mL [facility] Norcarfentanil 0.120NegativeNegative ng/mL 1.00 ng/mL [facility] Sufentanil 0.080NegativeNegative ng/mL 1.00 ng/mL [facility] ID Date Data Source [id number] 06/04/2020 02:01:46 PM EST [facility] NOTE: Presumptive Positive indicates a n onnegative test result by immunoassay screen. It is a preliminary result. [facility] recommends that a Presumptive Positive result be confirmed by an additional, more specific test such as mass spectrometry Name Value Range Interpretation Code Description Data Judith [facility](s) Supporting Document(s) Desmethyldoxepin 0.000NegativeNegative ng/mL 50.00 ng/mL [facility] Doxepin 4.360NegativeNegative ng/mL 50.00 ng/mL [facility] Imipramine 5.420NegativeNegative ng/mL 50.00 ng/mL [facility] Nortriptyline 0.360NegativeNegative ng/mL 50.00 ng/mL [facility] Amitriptyline 0.000NegativeNegative ng/mL 50.00 ng/mL [facility] Clomipramine 10.470NegativeNegative ng/mL 50.00 ng/mL [facility] Desipramine 0.000NegativeNegative ng/mL 50.00 ng/mL [facility] ID Date Data Source [id number] 06/04/2020 02:01:45 PM EST [facility] NOTE: Presumptive [...] 10.00 ng/mL [facility] ID Date Data Source [id number] 06/04/2020 02:01:46 PM EST [facility] NOTE: Presumptive [...] 1.00 ng/mL [facility] ID Date Data Source [id number] 06/04/2020 02:01:46 PM EST [facility] NOTE: Presumptive Positive indicates a n onnegative test result by immunoassay screen. It is a preliminary result. [facility] recommends that a Presumptive Positive result be confirmed by an additional, more specific test such as mass spectrometry Name Value Range Interpretation Code Description Data [facility]) Supporting Document(s) Trazodone 50Positive - ConsistentPOSITIVE> ng/mL 1.00 ng/mL [facility] mCPP 50Positive - ConsistentPOSITIVE> ng/mL 1.00 ng/mL [facility] ID Date Data Source [id number] 05/17/2020 05:00:00 AM EST NETSMART ([facility]) Name Value Range Interpretation Code Description Data [facility] rce(s) Supporting Document(s) Creatinine 173.1NORMALNORMAL NE TSMART ([facility]) pH 6.0NORMALNORMAL NETSM ART ([facility]) Validity Result VALIDVALIDVALID [facility]SMART ([facility]) Oxidants -17.00NegativeNegative NETSMART ([facility]) Amphetamines 449.00NegativeNegative NETSMART ([facility]) Barbiturates 41.00NegativeNegative [facility]SMART ([facility]) Benzodiazepines 14.00NegativeNegative [facility]SM[facility] ([facility]) Cocaine Metabolites -16.00NegativeNegative [facility]SMART ([facility]) Buprenorphine 121.90PRESUMPTIVE POSITIVEPRESUMPTIVE POSITIVE NETSMART ([facility]) EDDP -145.00NegativeNegative [facility]SM[facility] ([facility]) Ethyl Glucuronide 42.00NegativeNegative [facility]) Cotinine 988.00PRESUMPTIVE POSITIVEPRESUMPTIVE POSITIVE [facility] ([facility]) Fentanyl 0.500NegativeNegative NETSMART ([facility]) Ethyl Alcohol -3.00NegativeNegative NETSMART ([facility]) Methadone -15.00NegativeNegative [facility]SMART ([facility]) Opiates -36.00NegativeNegative [facility]SMART ([facility]) Heroin (6-AM) 2.80NegativeNegative [facility]SM[facility] ([facility]) Synthetic Opiates -17.00NegativeNegative [facility]SM[facility] ([facility]) Phencyclidine 23.00NegativeNegative [facility]SM[facility] ([facility]) Tramadol 37.00NegativeNegative [facility]SM[facility] ([facility]) Tricyclics 594.00PRESUMPTIVE POSITIVEPRESUMPTIVE POSITIVE NETSMART ([facility]) Cannabinoids -16.40NegativeNegative [facility]SM[facility] ([facility]) Ecstasy (MDMA) 79.00NegativeNegative [facility]SM[facility] ([facility]) Buprenorphine 250Positive - ConsistentPOSITIVE> NETSMART ([facility]) Desmethyldoxepin 0.000NegativeNegative [facility]SM[facility] ([facility]) Norbuprenorphine 500Positive - ConsistentPOSITIVE> NETSMART ([facility]) Naloxone 553.950Positive - ConsistentPOSITIVE NETSMART ([facility]) Imipramine 1.960NegativeNegative [facility]SM[facility] ([facility]) Doxepin 4.240NegativeNegative [facility]SM[facility] ([facility]) Clomipramine 37.370NegativeNegative [facility]SM[facility] ([facility]) Amitriptyline 2.100NegativeNegative [facility]SM[facility] ([facility]) Nortriptyline 3.020NegativeNegative [facility]SM[facility] ([facility]) Desipramine 0.000NegativeNegative [facility]SM[facility] ([facility]) ID Date Data Source [id number] 05/19/2020 05:30:36 PM EST [facility] NOTE: Presumptive [...] Result VALIDVALIDVALID [facility] ID Date Data Source [id number] 05/19/2020 05:30:36 PM EST [facility] NOTE: Presumptive [...] 500.00 ng/mL [facility] ID Date Data Source [id number] 05/19/2020 05:30:36 PM EST [facility] NOTE: Presumptive [...] 25.00 ng/mL [facility] ID Date Data Source [id number] 05/19/2020 05:30:36 PM EST [facility] NOTE: Presumptive [...] 50.00 ng/mL [facility] ID Date Data Source [id number] 05/11/2020 05:30:08 PM EST [facility] NT INFORMATIONPatient MRN Name Date of Age Gend*PT [id number] Denisha Harding 1990 30 years F OPPT Location Admission Date/Time Visit ID Attending Provider --- --- --- Ga Carpio MD([id number]) EPI ID CSN Admitting Provider [id number] ---Denisha Harding was seen by Mariama Lorenz MD.The problems addressed include:1. Lymphadenitis2. Medication refillI have discussed the case with the care-rendering provider Mariama Lorenz MD. Ireviewed and agree with the findings, assessment and plan as documented.Ga Carpio MD Name Value Range Interpretation Code Description Data Judith rce(s) Supporting Document(s) ID Date Data Source [id number] 05/11/2020 10:18:38 AM EST [facility] NT INFORMATIONPatient MRN Name Date of Age Gend*PT [id number] Denisha Harding 1990 30 years F OPPT Location Admission Date/Time Visit ID Attending Provider --- --- --- Ga Carpio MD([id number]) EPI ID CSN Admitting Provider [id number] ---Assessment/Plan:Denisha Harding is a 30 years female [...] rce(s) Supporting Document(s) ID Date Data Source [id number] 05/07/2020 01:00:46 PM [facility] NT INFORMATIONPatient MRN Name Date of Age Gend*PT [id number] Denisha Harding 1990 30 years F OPPT Location Admission Date/Time Visit ID Attending Provider --- --- --- Ron Tejada MD([id number]) EPI ID CSN Admitting Provider [id number] ---Denisha Harding was seen by Marky Medley MD.The problems addressed include:1. Polysubstance abuse2. Irritable bowel syndrome with constipation3. Moderate persistent asthma without complication4. GERD without esophagitis5. SedatedI have discussed the case with the care-rendering provider Marky Medley MD. Ireviewed and agree with the findings, assessment and plan as documented.Ron Tejada MD Name Value Range Interpretation Code Description Data [facility](s) Supporting Document(s) ID Date Data Source [id number] 05/06/2020 05:49:13 PM EST [facility] NOTE: Presumptive Positive indicates a n onnegative test result by immunoassay screen. It is a preliminary result. [facility] recommends that a Presumptive Positive result be confirmed by an additional, more specific test such as mass spectrometry Name Value Range Interpretation Code Description Data [facility](s) Supporting Document(s) Creatinine 143.1NORMALNORMAL mg/dL 20.0-300.0 mg/dL [facility] pH 6.9NORMALNORMAL 3.5-9.2 [facility] Oxidants -13.00NegativeNegative mcg/mL 200.00 mcg/mL [facility] Validity Result VALIDVALIDVALID [facility] ID Date Data Source [id number] 05/06/2020 05:49:14 PM EST [facility] NOTE: Presumptive Positive indicates a n onnegative test result by immunoassay screen. It is a preliminary result. [facility] recommends that a Presumptive Positive result be confirmed by an additional, more specific test such as mass spectrometry Name Value Range Interpretation Code Description Data [facility](s) Supporting Document(s) Amphetamines 350.00NegativeNegative ng/mL 500.00 ng/mL [...] 500.00 ng/mL [facility] ID Date Data Source [id number] 05/06/2020 05:49:14 PM EST [facility] NOTE: Presumptive [...] 25.00 ng/mL [facility] ID Date Data Source [id number] 05/06/2020 05:49:14 PM EST [facility] NOTE: Presumptive [...] ng/mL 1.00 ng/mL [facility] ID Data Source [id number] 05/06/2020 05:49:14 PM EST [facility] NOTE: Presumptive [...] 50.00 ng/mL [facility] ID Date Data Source [id number] 05/01/2020 09:08:47 PM [facility]FORMATIONPatient MRN Name Date of Age Gend*PT [id number] Denisha Harding 1990 30 years F OPPT Location Admission Date/Time Visit ID Attending Provider --- --- --- Ron Tejada MD([id number]) EPI ID CSN Admitting Provider [id number] ---Subjective: Denisha Harding is a female of 30 years who presents today for follow-up mood,chronic conditionsHPIJust got out of rehab in [place] 04/08, doing well New resident smokes spike, triggeringQuit 02/11/2020SomnolentRecovery house on S sideumb surgery 03/25 Nail biting infection, surgery, healingHelio counseling weeklyBilly [facility] 12mg divided [...] leonard, heroinFollows with Carri Hale (prescribing) at [facility] ([phone])Assessment & Plan:Got out of inpatient rehab [...] Name Value Range Interpretation Code Description Data [facility](s) Supporting Document(s) ID Date Data Source [id number] 04/23/2020 10:39:31 AM EST [facility] NOTE: Presumptive Positive indicates a n onnegative test result by immunoassay screen. It is a preliminary result. [facility] recommends that a Presumptive Positive result be confirmed by an additional, more specific test such as mass spectrometry Name Value Range Interpretation Code Description Data [facility](s) Supporting Document(s) Creatinine 118.7NORMALNORMAL mg/dL 20.0-300.0 mg/dL [facility] pH 5.3NORMALNORMAL 3.5-9.2 [facility] Oxidants -18.00NegativeNegative mcg/mL 200.00 mcg/mL [facility] Validity Result VALIDVALIDVALID [facility] ID Date Data Source [id number] 04/23/2020 10:39:32 AM EST [facility] NOTE: Presumptive Positive indicates a n onnegative test result by immunoassay screen. It is a preliminary result. [facility] recommends that a Presumptive Positive result be confirmed by an additional, more specific test such as mass spectrometry Name Value Range Interpretation Code Description Data [facility](s) Supporting Document(s) Amphetamines 337.00NegativeNegative ng/mL 500.00 ng/mL [...] 500.00 ng/mL [facility] ID Date Data Source [id number] 04/23/2020 10:39:34 AM EST [facility] NOTE: Presumptive Positive indicates a n onnegative test result by immunoassay screen. It is a preliminary result. [facility] recommends that a Presumptive Positive result be confirmed by an additional, more specific test such as mass spectrometry Name Value Range Interpretation Code Description Data [facility](s) Supporting Document(s) Buprenorphine 127.840Positive - ConsistentPOSITIVE ng/mL 5 .00 ng/mL [facility] Norbuprenorphine 367.960Positive - ConsistentPOSITI VE ng/mL 10.00 ng/mL [facility] Naloxone 230.550Positive - ConsistentPOSITIVE ng/mL 25.00 ng/mL [facility] ID Date Data Source [id number] 04/23/2020 10:39:36 AM EST [facility] NOTE: Presumptive Positive indicates a n onnegative test result by immunoassay screen. It is a preliminary result. [facility] recommends that a Presumptive Positive result be confirmed by an additional, more specific test such as mass spectrometry Name Value Range Interpretation Code Description Data [facility](s) Supporting Document(s) Norfentanyl 0.280NegativeNegative ng/mL 1.00 ng/mL [facility] Fentanyl 0.100NegativeNegative ng/mL 1.00 ng/mL [facility] Carfentanil 0.040NegativeNegative ng/mL 1.00 ng/mL [facility] Norcarfentanil 0.300NegativeNegative ng/mL 1.00 ng/mL [facility] Sufentanil 0.200NegativeNegative ng/mL 1.00 ng/mL [facility] ID Date Data Source [id number] 04/23/2020 10:39:35 AM EST [facility] NOTE: Presumptive Positive indicates a n onnegative test result by immunoassay screen. It is a preliminary result. [facility] recommends that a Presumptive Positive result be confirmed by an additional, more specific test such as mass spectrometry Name Value Range Interpretation Code Description Data [facility](s) Supporting Document(s) Desmethyldoxepin 0.000NegativeNegative ng/mL 50.00 ng/mL [facility] Doxepin 7.950NegativeNegative ng/mL 50.00 ng/mL [facility] Imipramine 10.580NegativeNegative ng/mL 50.00 ng/mL [facility] Nortriptyline 6.390NegativeNegative ng/mL 50.00 ng/mL [facility] Amitriptyline 13.340NegativeNegative ng/mL 50.00 ng/mL [facility] Clomipramine 15.960NegativeNegative ng/mL 50.00 ng/mL [facility] Desipramine 6.090NegativeNegative ng/mL 50.00 ng/mL [facility] ID Date Data Source [id number] 04/23/2020 10:39:38 AM EST [facility] NOTE: Presumptive [...] results) [facility] x ID Date Data Source [id number] 04/12/2020 02:43:00 PM EST NETSMART ([employer]) Name Value Range Interpretation Code Description Data Judith rce(s) Supporting Document(s) Creatinine 30.8NORMALNORMAL NET SMART ([facility]) Oxidants -14.00NegativeNegative [facility]SM[facility] ([employer]) pH 8.2NORMALNORMAL NETSM ART ([employer]) Barbiturates 0.00NegativeNegative [facility]SM[facility] ([employer]) Validity Result VALIDVALIDVALID [facility]SMART ([employer]) Amphetamines 62.00NegativeNegative NETSMART ([facility]) Buprenorphine 43.40PRESUMPTIVE POSITIVEPRESUMPTIVE POSITIVE NETSMART ([facility]) Benzodiazepines -3.00NegativeNegative NETSMART ([facility]) Cotinine 763.00PRESUMPTIVE POSITIVEPRESUMPTIVE POSITIVE NETSMART ([facility]) EDDP -34.00NegativeNegative [facility]SMART ([facility]) Cocaine Metabolites 7.00NegativeNegative NETSMART ([facility]) Ethyl Glucuronide -12.00NegativeNegative NETSMART ([facility]) Ethyl Alcohol 1.00NegativeNegative [facility]SMART ([facility]) Fentanyl 0.300NegativeNegative NETSMART ([facility]) Methadone -11.00NegativeNegative [facility]SMART ([facility]) Heroin (6-AM) 1.10NegativeNegative [facility]SMART ([facility]) Synthetic Opiates -16.00NegativeNegative NETSMART ([facility]) Phencyclidine 11.70NegativeNegative NETSMART ([facility]) Opiates 0.00NegativeNegative NETSMART ([facility]) Tramadol 14.00NegativeNegative [facility]SM[facility] ([facility]) Cannabinoids -5.40NegativeNegative NETSMART ([facility]) Tricyclics 456.00NegativeNegative NETSMART ([facility]) Buprenorphine 28.240Positive - ConsistentPOSITIVE NETSMART ([facility]) Ecstasy (MDMA) 6.00NegativeNegative [facility]SMART ([facility]) Norbuprenorphine 75.050Positive - ConsistentPOSITIVE NETSMART ([facility]) Naloxone 33.950Positive - ConsistentPOSITIVE NETSMART ([facility]) ID Date Data Source [id number] 04/16/2020 02:42:04 PM EST [facility] NOTE: Presumptive Positive indicates a n onnegative test result by immunoassay screen. It is a preliminary result. [facility] recommends that a Presumptive Positive result be confirmed by an additional, more specific test such as mass spectrometry Name Value Range Interpretation Code Description Data Judith e(s) Supporting Document(s) Creatinine 30.8NORMALNORMAL mg/dL 20.0-300.0 mg/dL [facility] pH 8.2NORMALNORMAL 3.5-9.2 [facility] Oxidants -14.00NegativeNegative mcg/mL 200.00 mcg/mL [facility] Validity Result VALIDVALIDVALID [facility] ID Date Data Source [id number] 04/16/2020 02:42:05 PM EST [facility] NOTE: Presumptive Positive indicates a n onnegative test result by immunoassay screen. It is a preliminary result. [facility] recommends that a Presumptive Positive result be confirmed by an additional, more specific test such as mass spectrometry Name Value Range Interpretation Code Description Data [facility](s) Supporting Document(s) Amphetamines 62.00NegativeNegative ng/mL 500.00 ng/mL [...] 500.00 ng/mL [facility] ID Date Data Source [id number] 04/16/2020 02:42:07 PM EST [facility] NOTE: Presumptive [...] n g/mL [facility] ID Date Data Source [id number] 04/06/2020 05:34:31 PM EDT [facility] NOTE: Presumptive [...] Result VALIDVALIDVALID [facility] ID Date Data Source [id number] 04/06/2020 05:34:32 PM EDT [facility] NOTE: Presumptive Positive indicates a n onnegative test result by immunoassay screen. It is a preliminary result. [facility] recommends that a Presumptive Positive result be confirmed by an additional, more specific test such as mass spectrometry Name Value Range Interpretation Code Description Data Judith e(s) Supporting Document(s) Amphetamines 56.00NegativeNegative ng/mL 500.00 ng/mL [...] 500.00 ng/mL [facility] ID Date Data Source [id number] 04/06/2020 05:34:34 PM EDT [facility] NOTE: Presumptive [...] non-numeric results) [facility] ID Date Data Source [id number] 04/06/2020 05:34:35 PM EDT [facility] NOTE: Presumptive [...] 50.00 ng/mL [facility] ID Date Data Source [id number] 02/03/2020 04:00:00 AM EDT NETSMART ([facility]) Name Value Range Interpretation Code Description Data Judith rce(s) Supporting Document(s) Creatinine 204.1NORMALNORMAL NE TSMART ([facility]) pH 6.3NORMALNORMAL NETSM ART ([facility]) Oxidants -17.00NegativeNegative NETSMART ([facility]) Amphetamines 209.00NegativeNegative [facility]SMART ([facility]) Validity Result VALIDVALIDVALID NETSMART ([facility]) Barbiturates -15.00NegativeNegative [facility]SM[facility] ([facility]) Buprenorphine 0.80NegativeNegative [facility]SMART ([facility]) Benzodiazepines -31.00NegativeNegative [facility]SM[facility] ([facility]) Cocaine Metabolites 175.00NegativeNegative [facility]SMART ([facility]) Cotinine 1671.00PRESUMPTIVE POSITIVEPRESUMPTIVE POSITIVE NETSMART ([facility]) Ethyl Glucuronide 26.00NegativeNegative NETSMART ([facility]) EDDP -91.00NegativeNegative [facility]SMART ([facility]) Ethyl Alcohol 7.00NegativeNegative NETSMART ([facility]) Fentanyl 0.100NegativeNegative [facility]SMART ([facility]) Heroin (6-AM) -1.30NegativeNegative [facility]SMART ([facility]) Opiates -32.00NegativeNegative [facility]SM[facility] ([facility]) Synthetic Opiates -13.00NegativeNegative NETSMART ([facility]) Methadone -37.00NegativeNegative [facility]SMART ([facility]) Phencyclidine -4.90NegativeNegative NETSMART ([facility]) Cannabinoids 7.80NegativeNegative [facility]SMART ([facility]) Tricyclics 16.00NegativeNegative [facility]SMART ([facility]) Ecstasy (MDMA) -1.00NegativeNegative [facility]SMART ([facility]) Tramadol -18.00NegativeNegative NETSMART ([facility]) Buprenorphine 0.000Negative - InconsistentNegative NETSMART ([facility]) Naloxone 0.000Negative - InconsistentNegative [facility]SMART ([facility]) Norbuprenorphine 0.620Negative - InconsistentNegative NETSMART ([facility]) ID Date Data Source [id number] 02/05/2020 12:00:00 AM EDT [facility] NOTE: Presumptive Positive indicates a n onnegative test result by immunoassay screen. It is a preliminary result. [facility] recommends that a Presumptive Positive result be confirmed by an additional, more specific test such as mass spectrometry Name Value Range Interpretation Code Description Data [facility] rce(s) Supporting Document(s) Creatinine 204.1NORMALNORMAL mg/dL 20.0-300.0 mg/dL [facility] pH 6.3NORMALNORMAL 3.5-9.2 [facility] Oxidants -17.00NegativeNegative mcg/mL 200.00 mcg/mL [facility] Validity Result VALIDVALIDVALID [facility] ID Date Data Source [id number] 02/05/2020 12:00:00 AM EDT [facility] NOTE: Presumptive Positive indicates a n onnegative test result by immunoassay screen. It is a preliminary result. [facility] recommends that a Presumptive Positive result be confirmed by an additional, more specific test such as mass spectrometry Name Value Range Interpretation Code Description Data [facility](s) Supporting Document(s) Amphetamines 209.00NegativeNegative ng/mL 500.00 ng/mL [...] 500.00 ng/mL [facility] ID Date Data Source [id number] 02/05/2020 12:00:00 AM EDT [facility] NOTE: Presumptive [...] (finding) completed Current non-drinker of alcohol (finding) [facility] Alcohol intake 08/31/2020 12:00:00 AM EDT Current non-d shanna of alcohol (finding) completed Current non-drinker of alcohol (finding) [facility] Alcohol intake 08/30/2020 12:00:00 AM EDT No completed [facility] Cigarette pack-years 08/30/2020 12:00:00 AM EDT UNK completed [facility] Cigarettes smoked current (pack per day) - Reported 08/31/19 12:00:00 AM EDT UNK completed [facility] Smoking 08/30/2020 12:00:00 AM EDT Current every day smoker co mpleted Current every day smoker [facility] Alcohol intake 08/23/2020 12:00:00 AM EDT No completed [facility] Cigarette pack-years 08/23/2020 12:00:00 AM EDT UNK completed [facility] Cigarettes smoked current (pack per day) - Reported 08/24/19 12:00:00 AM EDT UNK completed [facility] Smoking 08/23/2020 12:00:00 AM EDT Current every day smoker co mpleted Current every day smoker [facility] Alcohol intake 08/21/2020 12:00:00 AM EST Current drinker of al cohol (finding) completed Current drinker of alcohol (finding) [facility] Tobacco use and exposure 08/21/2020 12:00:00 AM EST Never used co mpleted Never used [facility] Cigarette pack-years 08/21/2020 12:00:00 AM EST UNK completed [facility] Cigarettes smoked current (pack per day) - Reported 08/22/19 12:00:00 AM EST UNK completed [facility] Smoking 08/21/2020 12:00:00 AM EST Current every day smoker co mpleted Current every day smoker [facility] Alcohol intake 06/20/2020 12:00:00 AM EST No completed [facility] Cigarette pack-years 06/20/2020 12:00:00 AM EST UNK completed [facility] Cigarettes smoked current (pack per day) - Reported 06/20/19 12:00:00 AM EST UNK completed [facility] Smoking 06/20/2020 12:00:00 AM EST Current every day smoker co mpleted Current every day smoker [facility] Smoking 06/13/2020 12:00:00 PM EST Smokes tobacco daily (findi [employer]) completed Current Every Day Smoker [facility] ([facility]) Alcohol intake 05/04/2020 12:00:00 AM EST No completed [facility] Cigarette pack-years 05/04/2020 12:00:00 AM EST UNK completed [facility] Cigarettes smoked current (pack per day) - Reported 05/04/20 12:00:00 AM EST UNK completed [facility] Smoking 05/04/2020 12:00:00 AM EST Current every day smoker co mpleted Current every day smoker [facility] Alcohol intake 05/01/2020 12:00:00 AM EST No completed [facility] Cigarette pack-years 05/01/2020 12:00:00 AM EST UNK completed [facility] Cigarettes smoked current (pack per day) - Reported 05/01/20 12:00:00 AM EST UNK completed [facility] Smoking 05/01/2020 12:00:00 AM EST Current every day smoker co mpleted Current every day smoker [facility] Vital Signs ID Date Data Source UNK Name Value Range Interpretation Code Description Data Source(s) Systolic blood pressure 106 mm[Hg] 106 mm[Hg] [facility] Diastolic blood pressure 68 mm[Hg] 68 mm[Hg] [facility] Heart rate 55 /min 55 /min [facility] Respiratory rate 18 /min 18 /min [facility] Oxygen saturation in Arterial blood by Pulse oximetry 98 % 98 % [facility] Body temperature 36.11 Xenia 36.11 Xenia [facility] Body temperature 97.1 [DEGF] 97.1 [DEGF] [facility]SMA RT ([facility]) Body temperature 36.2 XENIA 36.2 XENIA NETSMART ([employer]) Heart rate 82.0 /MIN 82.0 /MIN NETSMART ([facility]) Respiratory rate 18.0 /MIN 18.0 /MIN [facility]SM[facility] ([employer]) Systolic blood pressure 125.0 MM[HG] 125.0 MM[H G] [facility] ([employer]) Diastolic blood pressure 83.0 MM[HG] 83.0 MM[HG ] [facility] ([employer]) Oxygen saturation in Arterial blood by Pulse oximetry 98.0 % 98.0 % [facility] ([employer]) Systolic blood pressure 125 mm[Hg] 125 mm[Hg] [facility] Diastolic blood pressure 81 mm[Hg] 81 mm[Hg] [facility] Heart rate 63 /min 63 /min [facility] Respiratory rate 18 /min 18 /min [facility] Oxygen saturation in Arterial blood by Pulse oximetry 95 % 95 % [facility] Body temperature 36.83 Xenia 36.83 Xenia [facility] Body weight 108.863 kg 108.863 kg [facility] Body mass index (BMI) [Ratio] 51.94 kg/m2 51.94 kg/m2 [facility] Oxygen saturation in Arterial blood by Pulse oximetry 99.0 % 99.0 % [facility] ([facility]) Systolic blood pressure 118.0 MM[HG] 118.0 MM[H G] [facility] ([facility]) Diastolic blood pressure 85.0 MM[HG] 85.0 MM[HG ] NETSMART ([facility]) Body weight 106.4 KG 106.4 KG NETSMART ([facility]) Body temperature 98.7 [DEGF] 98.7 [DEGF] [facility]SMA RT ([facility]) Body temperature 37.1 EXNIA 37.1 XENIA [facility] Heart rate 52.0 /MIN 52.0 /MIN [facility] Respiratory rate 16.0 /MIN 16.0 /MIN [facility] Body mass index (BMI) [Ratio] 50.6 50.6 NETSMART ([facility] [employer]) Body height 144.8 cm 144.8 cm [facility] Pain severity - 0-10 verbal numeric rating [Score] - Reported 0.[address]ck[address] [facility] ([facility]) Systolic blood pressure 131 mm[Hg] 131 mm[Hg] [facility] Diastolic blood pressure 83 mm[Hg] 83 mm[Hg] [facility] Heart rate 72 /min 72 /min [facility] Body temperature 35.17 Xenia 35.17 Xenia [facility] Respiratory rate 18 /min 18 /min [facility] Body height 144.8 cm 144.8 cm [facility] Body weight 105.688 kg 105.688 kg [facility] Body mass index (BMI) [Ratio] 50.42 kg/m2 50.42 kg/m2 [facility] Oxygen saturation in Arterial blood by Pulse oximetry 97 % 97 % [facility] Systolic blood pressure 95 mm[Hg] 95 mm[Hg] [facility] Diastolic blood pressure 60 mm[Hg] 60 mm[Hg] [facility] Heart rate 60 /min 60 /min [facility] Body temperature 36.78 Xenia 36.78 Xenia [facility] Respiratory rate 16 /min 16 /min [facility] Body weight 100.925 kg 100.925 kg [facility] Body mass index (BMI) [Ratio] 48.15 kg/m2 48.15 kg/m2 [facility] Oxygen saturation in Arterial blood by Pulse oximetry 97 % 97 % [facility] Systolic blood pressure 114 mm[Hg] 114 mm[Hg] [facility] Diastolic blood pressure 69 mm[Hg] 69 mm[Hg] [facility] Heart rate 72 /min 72 /min [facility] Body temperature 36.11 Xenia 36.11 Xenia [facility] Respiratory rate 18 /min 18 /min [facility] Body height 144.8 cm 144.8 cm [facility] Body weight 100.699 kg 100.699 kg [facility] Body mass index (BMI) [Ratio] 48.04 kg/m2 48.04 kg/m2 [facility] Oxygen saturation in Arterial blood by Pulse oximetry 96 % 96 % [facility] Systolic blood pressure 120 mm[Hg] 120 mm[Hg] [facility] Diastolic blood pressure 73 mm[Hg] 73 mm[Hg] [facility] Heart rate 76 /min 76 /min [facility] Body temperature 36.28 Xenia 36.28 Xenia [facility] Respiratory rate 20 /min 20 /min [facility] Body height 144.8 cm 144.8 cm [facility] Body weight 102.331 kg 102.331 kg [facility] Body mass index (BMI) [Ratio] 48.82 kg/m2 48.82 kg/m2 [facility] Oxygen saturation in Arterial blood by Pulse oximetry 95 % 95 % [facility] Systolic blood pressure 115.0 MM[HG] 115.0 MM[H G] [facility]SMART ([employer]) Diastolic blood pressure 80.0 MM[HG] 80.0 MM[HG ] [facility] ([employer]) Body weight 100.9 KG 100.9 KG [facility] ([employer]) Body mass index (BMI) [Ratio] 48.0 48.0 [facility]SM[facility] ([employer] [facility]) Pain severity - 0-10 verbal numeric rating [Score] - Reported 3.0 S mckenzie 3.0 Scale [facility] Body temperature 36.4 XENIA 36.4 XENIA [facility] ([facility]) Heart rate 69.0 /MIN 69.0 /MIN [facility] Respiratory rate 16.0 /MIN 16.0 /MIN [facility] ([facility]) Oxygen saturation in Arterial blood by Pulse oximetry 98.0 % 98.0 % [facility] ([facility]) Body height 144.[address] [facility] ([facility]) Body temperature 97.5 [DEGF] 97.5 [DEGF] [facility] ([facility]) ID Date Data Source [id number] 12/14/2020 06:21:54 PM EDT [facility] Name Value Range Interpretation Code Description Data Source(s) WEIGHT RECORDED 215 lb 215 lb [facility] Body height Measured 57 in 57 in [facility] ID Date Data Source [id number] 08/28/2020 09:54:13 AM T [facility] Name Value Range Interpretation Code Description Data Source(s) Body height Measured 57 in 57 in [facility] Patient Treatment Plan of Care Planned Activity Planned Date Details Description Data Source (s) Prednisone 10 MG Oral Tablet 11/21/2020 12:00:00 AM EDT [facility] Diclofenac Sodium 75 MG Delayed Release Oral Tablet 08/31/19 12:00:00 AM EDT [facility] Acetaminophen 325 MG Oral Tablet 08/30/2020 12:00:00 AM EDT [facility] NITROFURANTOIN, MACROCRYSTALS 25 MG / Ni trofurantoin, Monohydrate 75 MG Oral Capsule 08/25/2020 12:00:00 AM EDT [facility] Cephalexin 500 MG Oral Capsule 08/22/2020 12:00:00 AM EDT [facility] sodium chloride (preservative free) 0.9 % flush 10 mL 08/21/2020 06:24:49 PM [facility] Acetaminophen 325 MG Oral Tablet 08/21/2020 12:00:00 AM [facility] Cephalexin 500 MG Oral Capsule 08/21/2020 12:00:00 AM [facility] sennosides, [facility] 8.6 MG Oral Tablet 08/18/2020 12:00:00 AM EST [facility] ropinirole 0.25 MG Oral Tablet 08/18/2020 12:00:00 AM EST [facility] POLYETHYLENE GLYCOL 3350 142 MG/ML Oral Solution 08/18/2020 12:00:0 0 AM EST [facility] calcium polycarbophil 625 MG Oral Tablet 08/18/2020 12:00:[address] [facility] montelukast 10 MG Oral Tablet 08/18/2020 12:00:[address] [facility] Desmopressin Acetate 0.01 MG/ACTUAT Nasal [place] 08/18/2020 12:00:[address] [facility] 30 ACTUAT umeclidinium 0.0625 MG/ACTUAT / vilanterol 0.025 MG/ACTUAT Dry Powder Inhaler [Anoro] 08/18/2020 12:00:00 AM EST [facility] albuterol (PROVENTIL HFA;VENTOLIN HFA) 108 (90 Base) M CG/ACT inhaler 08/18/2020 12:00:[address] [facility] Trazodone Hydrochloride 150 MG Oral Tablet 08/09/2020 12:00:00 AM E [facility] Esomeprazole 20 MG Delayed Release Oral Capsule 07/19/2020 12:00:00 AM EST [facility] sennosides, [facility]CF 8.6 MG Oral Tablet 06/20/2020 12:00:[address] [facility] ropinirole 0.25 MG Oral Tablet 06/20/2020 12:00:00 AM EST [facility] Desmopressin Acetate 0.01 MG/ACTUAT Nasal [place] 06/20/2020 12:00:00 AM EST [facility] 30 ACTUAT umeclidinium 0.0625 MG/ACTUAT / vilanterol 0.025 MG/ACTUAT Dry Powder Inhaler [Anoro] 06/20/2020 12:00:00 AM [facility] albuterol (PROVENTIL HFA;VENTOLIN HFA) 108 (90 Base) M CG/ACT inhaler 06/20/2020 12:00:00 AM [facility] Esomeprazole 20 MG Delayed Release Oral Capsule 06/20/2020 12:00:[address] [facility] Multiple Vitamins-Iron (MULTIVITAMIN WITH IRON) TABS 021 12:00:[address] [facility] calcium polycarbophil 625 MG Oral Tablet 05/27/2020 12:00:[address] [facility] POLYETHYLENE GLYCOL 3350 142 MG/ML Oral Solution 05/27/2020 12:00:[address] [facility] montelukast 10 MG Oral Tablet 05/27/2020 12:00:[address] [facility] quetiapine 100 MG Oral Tablet 05/04/2020 12:00:[address] [facility] doxycycline hyclate 100 MG Oral Tablet 05/04/2020 12:00:[address] [facility] quetiapine 25 MG Oral Tablet 04/26/2020 12:00:[address] [facility] Multiple Vitamins-Iron (MULTIVITAMIN WITH IRON) TABS 020 12:00:[address] [facility] Esomeprazole 20 MG Delayed Release Oral Capsule 04/25/2020 12:00:[address] [facility] sennosides, [facility] 8.6 MG Oral Tablet 04/25/2020 12:00:[address] [facility] 30 ACTUAT umeclidinium 0.0625 MG/ACTUAT / vilanterol 0.025 MG/ACTUAT Dry Powder Inhaler [Anoro] 04/25/2020 12:00:00 AM [facility] albuterol (PROVENTIL HFA;VENTOLIN HFA) 108 (90 Base) M CG/ACT inhaler 04/25/2020 12:00:[address] [facility] POLYETHYLENE GLYCOL 3350 142 MG/ML Oral Solution 04/25/2020 12:00:0 0 AM EST [facility] montelukast 10 MG Oral Tablet 04/25/2020 12:00:00 AM EST [facility] calcium polycarbophil 625 MG Oral Tablet 04/25/2020 12:00:00 AM EST [facility] Desmopressin Acetate 0.01 MG/ACTUAT Nasal [place] 04/12/2020 12:00:00 AM EST [facility] Esomeprazole 20 MG Delayed Release Oral Capsule 04/04/2020 12:00:00 AM EDT [facility] Clonidine Hydrochloride 0.1 MG Oral Tablet 04/03/2020 12:00:00 AM E DT [facility] benztropine mesylate 1 MG Oral Tablet 04/03/2020 12:00:00 AM EDT [facility] Ibuprofen 600 MG Oral Tablet 04/03/2020 12:00:00 AM EDT [facility] ropinirole 0.25 MG Oral Tablet 04/03/2020 12:00:00 AM EDT [facility] Guanfacine 1 MG Oral Tablet 03/29/2020 12:00:00 AM EDT [facility] 30 ACTUAT umeclidinium 0.0625 MG/ACTUAT / vilanterol 0.025 MG/ACTUAT Dry Powder Inhaler [Anoro] 03/21/2020 12:00:00 AM EDT [facility] 12 HR Bupropion Hydrochloride 150 MG Extended Release Oral Tablet 03/10/2020 12:00:[address] [facility] Acetaminophen 325 MG Oral Tablet 12/16/2019 12:00:00 AM EDT [facility] albuterol (PROVENTIL HFA;VENTOLIN HFA) 108 (90 Base) M CG/ACT inhaler 12/16/2019 12:00:[address] [facility] Albuterol 0.83 MG/ML Inhalant Solution 12/16/2019 12:00:00 AM EDT [facility] Albuterol 0.833 MG/ML / Ipratropium [place] 0.167 MG/M L Inhalant Solution 12/16/2019 12:00:00 AM EDT [facility] Ascorbic Acid 60 MG / Beta Carotene 5000 UNT / Copper Sulfate 40 MG / dl-alpha tocopheryl acetate 30 UNT / Sodium Selenite 0.04 MG / Zinc Oxide 40 MG Oral Tablet 10/22/2019 12:00:00 AM EDT [facility] calcium polycarbophil 625 MG Oral Tablet 10/22/2019 12:00:00 AM EDT [facility] 60 ACTUAT Fluticasone propionate 0.25 MG /ACTUAT / salmeterol 0.05 MG/ACTUAT Dry Powder Inhaler 10/22/2019 12:00:00 AM EDT [facility] montelukast 10 MG Oral Tablet 10/22/2019 12:00:00 AM EDT [facility] Trazodone Hydrochloride 100 MG Oral Tablet 10/14/2019 12:00:00 AM E DT [facility] quetiapine 100 MG Oral Tablet 10/14/2019 12:00:00 AM EDT [facility] Trazodone Hydrochloride 50 MG Oral Tablet [facility] olanzapine 10 MG Oral Tablet [facility] ferrous sulfate 325 MG Oral Tablet [facility]
== END 2021-03-27 20:30 | disposition left against medical advice (07) ==
LOC: M ED 19:27
DX: Z53.29 Procedure and treatment not carried out because of patient's decision for other reasons (principal)